=== PATIENT | male | born 1950 | race Caucasian/White ===

== ENCOUNTER 2018-02-10 17:28 | Inpatient (IN) | payer OTHER ==
[2018-02-10] MEDS ORDERED: ACETAMINOPHEN 500 MG TAB PO PRN (17:56)
--- NOTE | 2018-02-10 18:34 | P.HP ---
Certification for Inpatient Patient admitted to: Inpatient With expected LOS: >2 Midnights Patient will require the following post-hospital care: None Practitioner: I am a practitioner with admitting privileges, knowledge of patient current condition, hospital course, and medical plan of care. Services: Services provided to patient in accordance with Admission requirements found in Title 42 Section 412.3 of the Code of Federal Regulations Patient History Date of Service: 02/10/18 Primary Care Provider: Dr Amador and Dr Person Reason for admission: Olecron Brusitis History of Present Illness: 67-year-old male with significant past medical history of hypertension and diabetes who presented to the ED from Dr. person in the office for possible Olecron bursitis. Patient was admitted here about a month ago for septic elbow joint and was sent over to a long-term acute care facility for IV antibiotics and wound care. He patient released on Wednesday and started having some pain and swelling in the elbow area and thus decided to go to the orthopedic surgeon's office to get it checked out. At the surgeon's office there was concern for Osteomylitis and Septic Bursitis again. Thus was admitted to the hospital for further. Allergies sertraline [From Zoloft] Allergy (Verified 12/29/17 02:19) Hives/Rash Home Medications: Metoprolol Er 100 mg PO DAILY 02/27/13 Docusate [Colace Cap] 100 mg PO BID 01/09/15 Bupropion HCl [Wellbutrin*] 200 mg PO DAILY 12/29/17 Gabapentin [Neurontin*] 1 tab PO BID 12/29/17 Metformin HCl [Metformin HCl] 1 tab PO BID 12/29/17 Methocarbamol [Methocarbamol] 500 mg PO TID PRN 02/10/18 Oxycodone HCl/Acetaminophen [Oxycodone-Acetaminophen 10-325] 1 tab PO Q4H - Past Medical/Surgical History Has patient received pneumonia vaccine in the past: Yes Diabetic: Yes -: HTN -: Diabetes mellitus -: psoriasis -: cholecystectomy -: splectomy -: lumbar surgery -: left knee replacement -: 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 -: appendectomy -: hemorrhoid surgery -: colectomy - Family History Mother -: Heart disease Father -: Lung disease - Social History Smoking Status: Former smoker Alcohol use: No CD- Drugs: Yes Caffeine use: Yes Place of Residence: Home Review of Systems 10-point ROS is otherwise unremarkable General: As per HPI Physical Examination - Vital Signs Temperature: 98.2 F Blood Pressure: 112/70 Pulse: 77 Respirations: 16 Pulse Ox (%): 95 - Physical Exam General: Alert, In no apparent distress, Oriented x3 HEENT: Atraumatic Neck: Supple Respiratory: Clear to auscultation bilaterally, Normal air movement Cardiovascular: Regular rate/rhythm, Normal S1 S2 Gastrointestinal: Normal bowel sounds, No tenderness Musculoskeletal: Erythema, Tenderness, Warmth (Left Elbow with Brusitis ) Integumentary: No rashes Neurological: Normal speech, Normal tone, Abnormal gait, Abnormal strength Lymphatics: No axilla or inguinal lymphadenopathy Assessment and Plan - Problems (Diagnosis) (1) Olecranon bursitis of left elbow Current Visit: Yes Status: Acute Plan: H/O Septic Bursitis treated surgically and IV abx. Was in LTAC and now with Fluid collection and Bursitis again. -IV abx and wound care -Ortho consulted. Awaiting reccs -Culture pending -Will get PICC line (2) Diabetes mellitus Onset Date: 01/09/15 Current Visit: No Status: Chronic Qualifiers: Diabetes mellitus type: type 2 Diabetes mellitus fdc insulin use: without long term care pharmacist use Diabetes mellitus complication status: without complication Qualified Code(s): E11.9 - Type 2 diabetes mellitus without complications (3) Hypertension Onset Date: 12/29/17 Current Visit: No Status: Chronic Qualifiers: Hypertension type: essential hypertension Qualified Code(s): I10 - Essential (primary) hypertension (4) Obesity Current Visit: No Status: Chronic Qualifiers: Obesity type: due to excess calories Obesity classification: adult class 1 (BMI 30 - 34.9) Serious obesity comorbidity presence: with serious comorbidity Body mass index: BMI 33.0-33.9 Qualified Code(s): E66.09 - Other obesity due to excess calories; Z68.33 - Body mass index (BMI) 33.0-33.9, adult; Z68.33 - Body mass index (BMI) 33.0-33.9, adult Discharge Plan: LTAC Plan to discharge in: 48 Hours - Advance Directives Does patient have a Living Will: Yes Does patient have a Durable POA for Healthcare: Yes - Code Status/Comfort Care Code Status Assessed: Yes Critical Care: No
[2018-02-10 19:48] LABS: Urine Appearance CLEAR; Urine Bilirubin NEGATIVE (NEG); Urine Blood NEGATIVE (NEG); Urine Color YELLOW; Urine Glucose 2+ (NEG); Urine Protein NEGATIVE (NEG); Urine Specific Gravity 1.015 (1.005-1.030); Urine Urobilinogen 0.2 mg/dL (0.2-1.0)
[2018-02-10 19:53] LABS: Urine Microscopic Reflex NO UMIC
[2018-02-10] MEDS ORDERED: VANCOMYCIN 1.25 GM in NA CHLORIDE 0.9% 250 ML IVPB SCH (21:00)
[2018-02-10] MEDS: INSULIN -REGULAR HUMAN 50 UNIT/0.5 ML ML SQ SCH (21:27)
[2018-02-10] MEDS: ONDANSETRON 4 MG (ODT) TAB PO PRN (21:27)
[2018-02-10] MEDS: PIPER/TAZO/NS 3.375gm 3.375 GM/100 ML BAG IVPB SCH (21:28)
[2018-02-10] MEDS: GABAPENTIN 300 MG CAP PO SCH (21:28)
[2018-02-10] MEDS: OXYCODONE HCL 5 MG TAB PO PRN (21:28)
[2018-02-10] MEDS: DOCUSATE NA 100 MG CAP PO SCH (21:28)
[2018-02-10 22:23] VITALS: BMI 32.0
[2018-02-11 05:22] LABS: Absolute Monocytes 2.6 K/uL (0.1-1.3); Absolute Neutrophil 6.1 K/uL (1.8-8.0); Basophils % 0.6 % (0-1.3); Eosinophils % 6.1 % (0-4.4); Hematocrit 36.2 % (39.6-49.0); Lymphocytes % 41.7 % (15.3-44.8); MCV 90.2 fL (80-100); MPV 9.4 fL (7.6-11.3); Monocytes % 15.3 % (3.3-12.3); RBC Red Blood Cell Count 4.01 M/uL (4.33-5.43)
[2018-02-11 05:30] LABS: Protime INR 1.06
[2018-02-11 05:56] LABS: Albumin 2.7 g/dL (3.2-5.5); Bilirubin Total 0.7 mg/dL (0.3-1.2); Phosphorus 3.7 mg/dL (2.5-4.3); Potassium 3.8 mEq/L (3.6-5.0)
[2018-02-11 05:58] LABS: Magnesium 1.4 mg/dL (1.8-2.5)
[2018-02-11] MEDS ORDERED: Magnesium Sulfate 2gm IVPB 2 G/50 ML BAG IV ONE (06:02)
[2018-02-11 07:06] LABS: Platelet Estimate ADEQ
[2018-02-11 07:07] LABS: Anisocytosis SLIGHT; Blood Morphology Comment NOTED (NOT SEEN); Macrocytosis SLIGHT
[2018-02-11] MEDS: INSULIN -REGULAR HUMAN 50 UNIT/0.5 ML ML SQ SCH ×4 (07:30→20:22)
[2018-02-11] MEDS ORDERED: PNEUMOCOCCAL VACCINE 0.5 ML IMVAC ONE (08:00)
[2018-02-11] MEDS: buPROPion HCl 100 MG TAB PO SCH (09:00)
[2018-02-11] MEDS: DOCUSATE NA 100 MG CAP PO SCH ×2 (09:00→20:13)
[2018-02-11] MEDS: METOPROLOL XL 100 MG TAB PO SCH (09:00)
[2018-02-11] MEDS: GABAPENTIN 300 MG CAP PO SCH ×2 (09:00→20:15)
[2018-02-11] MEDS ORDERED: METOPROLOL 100 MG PO SCH (09:00)
[2018-02-11] MEDS: PIPER/TAZO/NS 3.375gm 3.375 GM/100 ML BAG IVPB SCH ×2 (09:38→20:15)
[2018-02-11] MEDS: OXYCODONE HCL 5 MG TAB PO PRN (10:51)
[2018-02-11] MEDS ORDERED: NA CHLORIDE 0.9% 1,000 ML ONE (12:27)
--- NOTE | 2018-02-11 13:36 | P.PN ---
Subjective Date of Service: 02/11/18 Primary Care Provider: Dr Amador and Dr Person Chief Complaint: Olecron Brusitis Patient seen and examined at bedside with RN. Chart reviewed. Case discussed with orthopedic surgeon. Patient is currently awaiting were procedure. Review of Systems 10-point ROS is otherwise unremarkable Physical Examination - Vital Signs Temperature: 97.4 F Blood Pressure: 145/94 Pulse: 63 Respirations: 16 Pulse Ox (%): 97 - Physical Exam General: Alert, In no apparent distress, Oriented x3 HEENT: Atraumatic, PERRLA, EOMI Neck: Supple, JVD not distended Respiratory: Clear to auscultation bilaterally, Normal air movement Cardiovascular: Regular rate/rhythm, Normal S1 S2 Gastrointestinal: Normal bowel sounds, No tenderness Musculoskeletal: Other (Swelling and purulent discharge noted. ) Integumentary: No rashes Neurological: Normal speech, Normal tone, Normal affect Lymphatics: No axilla or inguinal lymphadenopathy - Studies Laboratory Data (last 24 hrs) 02/11/18 04:53: Sodium 139, Potassium 3.8, BUN 41 H, Creatinine 1.75 H, Glucose 150 H, Phosphorus 3.7, Magnesium 1.4 L* D, Total Bilirubin 0.7, AST 18, ALT 12, Alkaline Phosphatase 123 H 02/11/18 04:53: PT 12.5, INR 1.06, APTT 29.4 02/11/18 04:53: WBC 16.8 H, Hgb 11.6 L, Hct 36.2 L, Plt Count 332 Microbiology Data (last 24 hrs): 02/11/18 09:55 Wound - Left Elbow Gram Stain - Final 02/10/18 18:35 Blood Anaerobic Blood Culture - Final Medications List Reviewed: Yes Assessment & Plan - Problems (Diagnosis) (1) Olecranon bursitis of left elbow Onset Date: 02/11/18 Current Visit: Yes Status: Acute Plan: H/O Septic Bursitis treated surgically and IV abx. Was in LTAC and now with Fluid collection and Bursitis again. -IV abx and wound care -Ortho consulted. Awaiting reccs -Culture pending -Will get PICC line (2) Diabetes mellitus Onset Date: 01/09/15 Current Visit: No Status: Chronic Qualifiers: Diabetes mellitus type: type 2 Diabetes mellitus superintendent terminal insulin use: without superintendent terminal use Diabetes mellitus complication status: without complication Qualified Code(s): E11.9 - Type 2 diabetes mellitus without complications (3) Hypertension Onset Date: 12/29/17 Current Visit: No Status: Chronic Qualifiers: Hypertension type: essential hypertension Qualified Code(s): I10 - Essential (primary) hypertension (4) Obesity Onset Date: 02/11/18 Current Visit: No Status: Chronic Qualifiers: Obesity type: due to excess calories Obesity classification: adult class 1 (BMI 30 - 34.9) Serious obesity comorbidity presence: with serious comorbidity Body mass index: BMI 33.0-33.9 Qualified Code(s): E66.09 - Other obesity due to excess calories; Z68.33 - Body mass index (BMI) 33.0-33.9, adult; Z68.33 - Body mass index (BMI) 33.0-33.9, adult
[2018-02-11] MEDS ORDERED: PROPOFOL 200 MG/20 ML VIAL IV ONE (14:01)
[2018-02-11] MEDS ORDERED: LIDOCAINE 2% MPF 5 ML VIAL ONE (14:01)
[2018-02-11] MEDS ORDERED: MIDAZOLAM HCL 2 MG/2 ML INJ ONE (14:01)
[2018-02-11] MEDS ORDERED: ONDANSETRON 4 MG/2 ML VIAL ONE (14:02)
[2018-02-11] MEDS ORDERED: FENTANYL CITR 100 MCG/2 ML ONE (14:05)
[2018-02-11] MEDS ORDERED: SUCCINYLCHOLINE 20 MG/ML (10 ML) IV ONE (14:11)
[2018-02-11] MEDS ORDERED: ROCURONIUM 50 MG/5 ML VIAL IV ONE (14:21)
[2018-02-11] MEDS ORDERED: EPHEDRINE SULF 50 MG/5 ML SYR ONE (14:29)
[2018-02-11] MEDS ORDERED: GLYCOPYRROLATE 0.2 MG/ML SYR ONE (14:31)
[2018-02-11] MEDS ORDERED: Phenylephrine HCl 10 MG/ML 1 ML VIAL ONE (14:31)
--- NOTE | 2018-02-11 15:03 | P.BOP ---
Preoperative diagnosis: left elbow draining wound Postoperative diagnosis: same Primary procedure: left elbow irrigation and sharp debridement, packed open Estimated blood loss: 20ccs Findings: some necrotic tissue Anesthesia: General Complications: None Transferred to: Recovery Room Condition: Good
[2018-02-11] MEDS: Oxycodone HCl/Acetaminophen 1 TAB TAB PO PRN ×2 (17:10→21:26)
--- NOTE | 2018-02-11 17:10 | CON ---
Date of Consultation: 02/11/2018 I have definitely seen Mr. Leon in the past for approximately a month ago. He was admitted to the hospital for sepsis and with infected left upper extremity. This did involve the bursa. Also other extensive involvement, however, did not involve the elbow joint proper. He was treated with IV anti biotics and underwent serial irrigation and debridement until it appeared that all of the infected no nviable tissue was removed. He was placed in a splint and discharged to [facility] for IV antibiotics. He was released on Wednesday. After being released, he was placed on oral antibiotics. He saw me in my o ffice saying he was not feeling well. He did have continued open wound in the region of his elbow wi th some bloody as well as what appeared to be purulent drainage and did not appear to be much surroun ding cellulitis. He does have a CT scan which demonstrates probable persistence of infection. There fore, he is admitted under the care of hospitalist and placed on IV antibiotics. We will plan to carmina e him to the operating room today and also has planned to get a PICC line. Most of his future care w ill be dependent on his results with this treatment. All risks, benefits, and alternatives of surger y have been discussed with him. States, he understands things at present. We will most likely proce ed later on today. YOSEPH Voice ID: [id number] Report ID: [id number]
[2018-02-11] MEDS ORDERED: MAGNESIUM SULFATE 1 gm IVPB 1 GM/100 ML BAG IV ONE (18:00)
--- NOTE | 2018-02-11 19:53 | RAD REPORT ---
EXAM DESCRIPTION: MRI - Elbow Left Wo Cont - 02/11/2018 7:32 pm CLINICAL HISTORY: Left elbow pain and swelling. COMPARISON: None TECHNIQUE: Axial, sagittal, and coronal magnetic images of the left elbow were obtained. FINDINGS: A soft tissue ulceration involves the dorsal aspect of the left elbow. Abnormal signal involves the ulnar olecranon measuring 25 millimeters compatible with osteomyelitis. Diffuse edema is present within the subcutaneous tissues. A soft tissue abscess is not seen IMPRESSION: Osteomyelitis involving the ulnar olecranon
[2018-02-11] MEDS: VANCOMYCIN 1.5 GM in NA CHLORIDE 0.9% 500 ML IVPB SCH (20:14)
[2018-02-11] MEDS ORDERED: VANCOMYCIN 1.25 GM in NA CHLORIDE 0.9% 250 ML IVPB SCH (21:00)
[2018-02-11] MEDS: ONDANSETRON 4 MG (ODT) TAB PO PRN (21:27)
--- NOTE | 2018-02-12 02:02 | OP ---
Date of Procedure: 02/11/2018 Surgeon: Cj Person MD Postoperative Diagnosis: Left elbow draining wound, possibility of infection, abscess, or osteomyeli tis. Postoperative Diagnosis: Left elbow draining wound, possibility of infection, abscess, or osteomyeli tis. Procedure: Left elbow irrigation and sharp debridement, left packed open. Estimated Blood Loss: 20 cc. Complications: There were no complications. Specimen: There is a pathology specimen sent, which appears to be consistent with some necrotic tric eps tendon. Otherwise, cultures were also sent. Indications For Operation: Mr. Leon has had an unfortunate problem with his left elbow. He was i nitially admitted with sepsis approximately a month ago, and was taken nearly immediately to the oper ating room where he had a significant amount of purulent material throughout his left upper extremity . He also had a septic olecranon bursa. He went for multiple irrigations and debridement and was ev entually closed once it felt that this is clean over drain. He was then transferred to an [facility] with IV antibiotics. 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 Ther efore, he was treated empirically for this. He was discharged on Wednesday and noted that he had contin ued open wound and dressing of his elbow. I asked if he would proceed to local wound care in the [facility] since he had been discharged from the LTAC, but he came to see me in my office. On visualization, it appeared that he did have some desiccated triceps tendon that was easily seen and perhaps some pur ulence which was expressed. He was already on oral antibiotics. Cultures were not taken at that [facility]. However, he was admitted in the care of the hospitalist and started on IV antibiotics. All risks , benefits, and alternatives to irrigation and debridement of his left elbow were discussed with the patient. He states he understands things as presented and wishes to proceed. Description Of Procedure: The patient taken to the operating room and placed in the supine position. General anesthesia obtained by staff. Following this, he was then rotated. He was then rolled to his right side with all his bony prominences being checked. An axillary roll was placed. The beanba g was then deflated. His arm was properly positioned. His left upper extremity was then prepped and draped in the usual sterile fashion for his open wound. After this, a sterile tourniquet was placed superior left arm. His open wound was incised. Any necrotic appearing material was debrided. Ther e did appear to be some mild necrosis of the skin. Also, the triceps tendon did appear to be desicca ruthie with some necrotic area. This was debrided. The tip of the olecranon is easily seen. However, there does not appear to be any exposed cancellous bone. There was also does not appear to be any pu rulence coming from the bone itself. After this debridement was done, compression of the forearm and arm did not yield any purulent material. A small stab wound was made in the triceps fascia just pro ximal to the distal end of the humerus to allow for placement of a finger against the posterior aspec t of the humerus where there may be some purulent material, however, none was expressed here. After this cultures were sent. He was then copiously irrigated with multiple liters of sterile saline. He was again examined and appeared to be very clean. I think the primary pathology which was seen is s ome necrotic tissue near the olecranon consistent with triceps tendon. However, the triceps tendon i tself is functioning as he does have elbow extension on examination. At this time it is left packed open with a little bit of wet Kerlix, ABDs, as well as highly padded and then placed in a posterior s plint. The patient was then awakened, and taken to recovery room in good condition. There were no c omplications. SE/MODL Voice ID: [id number] Report ID: [id number]
[2018-02-12] MEDS: Oxycodone HCl/Acetaminophen 1 TAB TAB PO PRN ×3 (02:23→23:42)
[2018-02-12 05:14] LABS: Absolute Lymphocytes (CBC) 4.1 K/uL (0.7-4.9); Absolute Neutrophil 6.5 K/uL (1.8-8.0); Basophils % 0.5 % (0-1.3); Eosinophils % 14.2 % (0-4.4); Hematocrit 38.4 % (39.6-49.0); Lymphocytes % 27.7 % (15.3-44.8); MCH 29.2 pg (27.0-35.0); MCV 91.3 fL (80-100); MPV 9.7 fL (7.6-11.3); Monocytes % 13.8 % (3.3-12.3)
[2018-02-12 05:23] LABS: Albumin 2.9 g/dL (3.2-5.5); Bilirubin Total 0.7 mg/dL (0.3-1.2); Magnesium 1.7 mg/dL (1.8-2.5); Phosphorus 3.9 mg/dL (2.5-4.3); Potassium 4.1 mEq/L (3.6-5.0); Protein, Total 6.7 g/dL (6.0-8.3)
[2018-02-12 05:32] LABS: Protime INR 1.02
[2018-02-12] MEDS ORDERED: MAGNESIUM SULFATE 1 gm IVPB 1 GM/100 ML BAG IV ONE (06:21)
[2018-02-12] MEDS: INSULIN -REGULAR HUMAN 50 UNIT/0.5 ML ML SQ SCH ×4 (07:30→20:04)
[2018-02-12] MEDS: OXYCODONE HCL 5 MG TAB PO PRN ×2 (07:33→20:03)
--- NOTE | 2018-02-12 07:57 | RAD REPORT ---
EXAM DESCRIPTION: RAD - Chest Single View - 02/12/2018 1:01 am CLINICAL HISTORY: Device placement PICC line placement COMPARISON: December 2017 FINDINGS: A PICC line has been inserted with its tip in the superior vena cava. The haziness involving the left lung base probably mostly if not all represents epicardial fat. The remaining lungs are clear. The heart is normal size IMPRESSION: PICC line with its tip in the superior vena cava
[2018-02-12] MEDS: PIPER/TAZO/NS 3.375gm 3.375 GM/100 ML BAG IVPB SCH ×2 (09:54→20:05)
[2018-02-12] MEDS: DOCUSATE NA 100 MG CAP PO SCH ×2 (09:55→20:03)
[2018-02-12] MEDS: METOPROLOL XL 100 MG TAB PO SCH (09:55)
[2018-02-12] MEDS: buPROPion HCl 100 MG TAB PO SCH (09:55)
[2018-02-12] MEDS: GABAPENTIN 300 MG CAP PO SCH ×2 (09:56→20:03)
--- NOTE | 2018-02-12 10:31 | P.PN ---
Subjective Date of Service: 02/12/18 Primary Care Provider: Dr Amadro and Dr Person Chief Complaint: Olecron Brusitis Patient seen and examined at bedside with RN. Chart reviewed. Case discussed with orthopedic surgeon. Patient is currently status post OR procedure. MRI is consistent with osteomyelitis. Review of Systems 10-point ROS is otherwise unremarkable Physical Examination - Vital Signs Temperature: 99.3 F Blood Pressure: 145/74 Pulse: 76 Respirations: 16 Pulse Ox (%): 98 - Physical Exam General: Alert, In no apparent distress, Oriented x3 HEENT: Atraumatic, PERRLA, EOMI Neck: Supple, JVD not distended Respiratory: Clear to auscultation bilaterally, Normal air movement Cardiovascular: Regular rate/rhythm, Normal S1 S2 Gastrointestinal: Normal bowel sounds, No tenderness Musculoskeletal: No tenderness, Other (Right AKA) Integumentary: No rashes Neurological: Normal speech, Normal tone, Normal affect Lymphatics: No axilla or inguinal lymphadenopathy - Studies Laboratory Data (last 24 hrs) 02/12/18 04:23: Sodium 136, Potassium 4.1, BUN 32 H, Creatinine 1.31 H, Glucose 165 H, Phosphorus 3.9, Magnesium 1.7 L, Total Bilirubin 0.7, AST 23, ALT 13, Alkaline Phosphatase 114 02/12/18 04:23: PT 12.0, INR 1.02, APTT 27.9 02/12/18 04:23: WBC 14.8 H, Hgb 12.3 L, Hct 38.4 L, Plt Count 337 02/11/18 16:25: Magnesium 1.7 L 02/11/18 04:53: WBC 16.8 H Microbiology Data (last 24 hrs): 02/10/18 19:25 Clean Catch Urine [place] Count - Final <10,000 CFU/ML. 02/10/18 19:25 Clean Catch Urine - Final 02/10/18 18:35 Blood Anaerobic Blood Culture - Final 02/11/18 09:55 Wound - Left Elbow Gram Stain - Final Medications List Reviewed: Yes Assessment & Plan - Problems (Diagnosis) (1) Olecranon bursitis of left elbow Onset Date: 02/11/18 Current Visit: Yes Status: Acute Plan: H/O Septic Bursitis treated surgically and IV abx. Was in LTAC and now with Fluid collection and Bursitis again. -S/P Surgical Debriement POD # 1 -IV Vanc and wound care -Culture pending -PICC line placed -Will either need HH with Wound care or LTAC placement. (2) Diabetes mellitus Onset Date: 01/09/15 Current Visit: No Status: Chronic Qualifiers: Diabetes mellitus type: type 2 Diabetes mellitus communications clerk insulin use: without communications clerk use Diabetes mellitus complication status: without complication Qualified Code(s): E11.9 - Type 2 diabetes mellitus without complications (3) Hypertension Onset Date: 12/29/17 Current Visit: No Status: Chronic Qualifiers: Hypertension type: essential hypertension Qualified Code(s): I10 - Essential (primary) hypertension (4) Obesity Onset Date: 02/11/18 Current Visit: No Status: Chronic Qualifiers: Obesity type: due to excess calories Obesity classification: adult class 1 (BMI 30 - 34.9) Serious obesity comorbidity presence: with serious comorbidity Body mass index: BMI 33.0-33.9 Qualified Code(s): E66.09 - Other obesity due to excess calories; Z68.33 - Body mass index (BMI) 33.0-33.9, adult; Z68.33 - Body mass index (BMI) 33.0-33.9, adult Discharge Plan: Other Plan to discharge in: 48 Hours - Code Status/Comfort Care Code Status Assessed: Yes Critical Care: No
--- NOTE | 2018-02-12 13:09 | PN ---
Date of Progress Note: 02/12/2018 The patient is seen today. He is neurovascularly intact. Review of laboratories reveals that his wh ite count this morning is 14.8, which is down. He did have an MRI last night, which does show increa sed uptake in the region of olecranon; however, there is no abscess formation. This does appear to b e consistent with osteomyelitis and could be reactive as he has had this long open area, but I think treating as osteomyelitis would be considered best at this point. I do not believe that this is a re movable bone and so surgical excision of this area is not advocated; however, long-term IV antibiotic s has previously been discussed with the patient after this has been cleared with further debridement and at this time plan is to place the patient n.p.o. after midnight and proceed with operative inter vention tomorrow for a second-look irrigation and debridement and probable closure. /ALMA Voice ID: [id number] Report ID: [id number]
[2018-02-12] MEDS ORDERED: MELATONIN 5 MG TABLET PO PRN (13:48)
[2018-02-12] MEDS: PANTOPRAZOLE 40MG TABLET PO SCH (15:33)
[2018-02-12] MEDS: ONDANSETRON 4 MG (ODT) TAB PO PRN ×2 (17:22→23:39)
[2018-02-12] MEDS: VANCOMYCIN 1.5 GM in NA CHLORIDE 0.9% 500 ML IVPB SCH (21:14)
[2018-02-13] MEDS: Oxycodone HCl/Acetaminophen 1 TAB TAB PO PRN (03:55)
[2018-02-13] MEDS: PANTOPRAZOLE 40MG TABLET PO SCH (05:21)
[2018-02-13 05:59] LABS: Absolute Lymphocytes (CBC) 4.4 K/uL (0.7-4.9); Basophils % 1.1 % (0-1.3); Eosinophils % 10.2 % (0-4.4); Hematocrit 38.5 % (39.6-49.0); Lymphocytes % 25.5 % (15.3-44.8); MCH 29.4 pg (27.0-35.0); MCV 91.1 fL (80-100); MPV 9.4 fL (7.6-11.3); Monocytes % 11.7 % (3.3-12.3); RBC Red Blood Cell Count 4.22 M/uL (4.33-5.43)
[2018-02-13 06:12] LABS: Albumin 2.8 g/dL (3.2-5.5); Bilirubin Total 1.1 mg/dL (0.3-1.2); Magnesium 1.5 mg/dL (1.8-2.5); Phosphorus 3.7 mg/dL (2.5-4.3); Potassium 4.1 mEq/L (3.6-5.0); Protein, Total 6.4 g/dL (6.0-8.3); Protime INR 1.01
[2018-02-13] MEDS: ONDANSETRON 4 MG (ODT) TAB PO PRN ×2 (06:47→14:12)
[2018-02-13] MEDS: INSULIN -REGULAR HUMAN 50 UNIT/0.5 ML ML SQ SCH ×4 (07:30→21:36)
[2018-02-13] MEDS ORDERED: NA CHLORIDE 0.9% 1,000 ML ONE (08:06)
[2018-02-13] MEDS ORDERED: PROPOFOL 200 MG/20 ML VIAL IV ONE (08:09)
[2018-02-13] MEDS ORDERED: LIDOCAINE 2% MPF 5 ML VIAL ONE (08:09)
[2018-02-13] MEDS ORDERED: FENTANYL CITR 100 MCG/2 ML ONE (08:09)
[2018-02-13] MEDS ORDERED: ONDANSETRON 4 MG/2 ML VIAL ONE (08:30)
[2018-02-13] MEDS ORDERED: DEXAMETHASONE 10 MG/ML VIAL ONE (08:49)
[2018-02-13] MEDS: METOPROLOL XL 100 MG TAB PO SCH ×2 (09:00→12:52)
[2018-02-13] MEDS: PIPER/TAZO/NS 3.375gm 3.375 GM/100 ML BAG IVPB SCH ×2 (09:00→21:35)
[2018-02-13] MEDS: buPROPion HCl 100 MG TAB PO SCH ×2 (09:00→12:53)
[2018-02-13] MEDS: DOCUSATE NA 100 MG CAP PO SCH ×3 (09:00→21:37)
[2018-02-13] MEDS: GABAPENTIN 300 MG CAP PO SCH ×3 (09:00→21:37)
[2018-02-13] MEDS: MEPERIDINE HCL 25 MG/0.5 ML ONE ×2 (09:24→09:30)
[2018-02-13] MEDS ORDERED: GLUCAGON 1 MG/VIAL IM PRN (09:27)
[2018-02-13] MEDS ORDERED: D50W 25 GM/50 ML SYRINGE IV PRN (09:27)
--- NOTE | 2018-02-13 11:16 | OP ---
Date of Procedure: 02/13/2018 Surgeon: Cj Person MD Preoperative Diagnosis: Left elbow status post irrigation and debridement. Postoperative Diagnosis: Left elbow status post irrigation and debridement. Procedure: Left elbow second-look irrigation and debridement with closure. Estimated Blood Loss: 10 cc. Complications: There were no complications. Specimens: No pathology specimens sent. Indications For Operation: Mr. Leon is a patient, who came to see me and has had a long history o f problems with his left elbow. He recently had an MRI, which demonstrates possible osteomyelitis of his olecranon, but a long history is further detailed in his last procedure as well as his medical r ecord. The indications for operation today are irrigation and second-look debridement, possible clos ure. All risks, benefits, and alternatives have been discussed. The patient states he understands e verything as presented and wished to proceed. Description Of Procedure: The patient was taken to the operating room and placed in the supine posit ion. General anesthesia was obtained by staff. Following this, he was then rolled to his right side down with axillary roll. His left upper extremity was then prepped and draped in the usual sterile fashion for the procedure. Following this, the dressing was removed. It was found to be clear of an y purulent material. The wound bed itself appears to be absolutely clear and clean. The olecranon i s visible, but there is no sign of significant fragmentation. There does not appear to be any purule nt drainage from the olecranon. The triceps tendon is somewhat attenuated from the disease process; however, it also appears to be intact. The left upper extremity was prepped and draped in the usual sterile fashion. The wound was then copiously irrigated with 2 L sterile saline. A curette was used to gently move away some exudate, and the wound was explored. There was found to be no purulence or sign of necrotic tissue. The edges of the skin, particularly over the region of the olecranon were slightly debrided back to avoid any problems with epithelialization. The wound was then closed using 2-0 nylon sutures. The patient was placed in Aquacel dressing, extremely well-padded sterile dressi ng, splint, and taken to recovery room in good condition. There were no complications. /ALMA Voice ID: [id number] Report ID: [id number]
[2018-02-13] MEDS ORDERED: Magnesium Sulfate 2gm IVPB 2 G/50 ML BAG IV ONE (13:00)
--- NOTE | 2018-02-13 14:06 | P.PN ---
Subjective Date of Service: 02/13/18 Primary Care Provider: Dr Amador and Dr Person Chief Complaint: Olecron Brusitis Patient seen and examined at bedside with RN. Chart reviewed. Case discussed with orthopedic surgeon. Patient is currently status post OR procedure. MRI is consistent with osteomyelitis. Doing well overall. Culture pending. Review of Systems General: As per HPI Physical Examination - Vital Signs Temperature: 99.0 F Blood Pressure: 118/73 Pulse: 70 Respirations: 16 Pulse Ox (%): 93 - Physical Exam General: Alert, In no apparent distress HEENT: Atraumatic, PERRLA, EOMI Neck: Supple, JVD not distended Respiratory: Clear to auscultation bilaterally, Normal air movement Cardiovascular: Regular rate/rhythm, Normal S1 S2 Gastrointestinal: Normal bowel sounds, No tenderness Musculoskeletal: Other (right AKA) Integumentary: No rashes Neurological: Normal speech, Normal tone, Normal affect Lymphatics: No axilla or inguinal lymphadenopathy - Studies Laboratory Data (last 24 hrs) 02/13/18 05:40: Sodium 140, Potassium 4.1, BUN 19, Creatinine 1.15, Glucose 176 H, Phosphorus 3.7, Magnesium 1.5 L, Total Bilirubin 1.1, AST 19, ALT 14, Alkaline Phosphatase 92 02/13/18 05:40: PT 11.9, INR 1.01, APTT 28.4 02/13/18 05:40: WBC 17.5 H D, Hgb 12.4 L, Hct 38.5 L, Plt Count 334 Microbiology Data (last 24 hrs): 02/11/18 09:55 Wound - Left Elbow Gram Stain - Final 02/11/18 09:55 Wound - Left Elbow Culture & Sensitivity - Final 02/11/18 14:30 Body Fluid - Other Gram Stain - Final 02/11/18 14:30 Wound - Other Gram Stain - Final 02/10/18 19:25 Clean Catch Urine [place] Count - Final <10,000 CFU/ML. 02/10/18 19:25 Clean Catch Urine - Final Medications List Reviewed: Yes Assessment & Plan - Problems (Diagnosis) (1) Olecranon bursitis of left elbow Onset Date: 02/11/18 Current Visit: Yes Status: Acute Plan: H/O Septic Bursitis treated surgically and IV abx. Was in LTAC and now with Fluid collection and Bursitis again. -S/P Surgical Debriement POD # 2 -IV Vanc and wound care -Culture pending -PICC line placed -Will either need HH with Wound care or LTAC placement. (2) Diabetes mellitus Onset Date: 01/09/15 Current Visit: No Status: Chronic Qualifiers: Diabetes mellitus type: type 2 Diabetes mellitus intermediate frame tender insulin use: without intermediate frame tender use Diabetes mellitus complication status: without complication Qualified Code(s): E11.9 - Type 2 diabetes mellitus without complications (3) Hypertension Onset Date: 12/29/17 Current Visit: No Status: Chronic Qualifiers: Hypertension type: essential hypertension Qualified Code(s): I10 - Essential (primary) hypertension (4) Obesity Onset Date: 02/11/18 Current Visit: No Status: Chronic Qualifiers: Obesity type: due to excess calories Obesity classification: adult class 1 (BMI 30 - 34.9) Serious obesity comorbidity presence: with serious comorbidity Body mass index: BMI 33.0-33.9 Qualified Code(s): E66.09 - Other obesity due to excess calories; Z68.33 - Body mass index (BMI) 33.0-33.9, adult; Z68.33 - Body mass index (BMI) 33.0-33.9, adult
[2018-02-13] MEDS: OXYCODONE HCL 5 MG TAB PO PRN ×2 (14:12→22:26)
[2018-02-13] MEDS: VANCOMYCIN 1.5 GM in NA CHLORIDE 0.9% 500 ML IVPB SCH (21:35)
[2018-02-13] MEDS: ONDANSETRON 4 MG/2 ML VIAL IV PRN (22:26)
[2018-02-14] MEDS ORDERED: MAGNESIUM SULFATE 1 gm IVPB 1 GM/100 ML BAG IV ONE ×3 (00:54→09:00)
[2018-02-14] MEDS ORDERED: NA CHLORIDE 0.9% 250 ML ONE ×2 (01:33→06:53)
[2018-02-14] MEDS: PROMETHAZINE 25 MG/ML VIAL IV PRN ×4 (02:09→20:24)
[2018-02-14] MEDS: ONDANSETRON 4 MG/2 ML VIAL IV PRN (04:47)
[2018-02-14 05:31] LABS: Magnesium 1.8 mg/dL (1.8-2.5); Potassium 3.8 mEq/L (3.6-5.0)
[2018-02-14] MEDS ORDERED: ONDANSETRON 4 MG/2 ML VIAL IV PRN (05:40)
[2018-02-14] MEDS ORDERED: KCL 20 MEQ/100 mL IVPB 20 MEQ/100 ML BAG IV SCH (07:00)
[2018-02-14] MEDS: INSULIN -REGULAR HUMAN 50 UNIT/0.5 ML ML SQ SCH ×4 (07:30→20:09)
[2018-02-14] MEDS: PIPER/TAZO/NS 3.375gm 3.375 GM/100 ML BAG IVPB SCH ×2 (08:22→20:08)
[2018-02-14] MEDS: GABAPENTIN 300 MG CAP PO SCH ×2 (08:22→20:09)
[2018-02-14] MEDS: DOCUSATE NA 100 MG CAP PO SCH ×2 (08:22→20:08)
[2018-02-14] MEDS: buPROPion HCl 100 MG TAB PO SCH (08:23)
[2018-02-14] MEDS: PANTOPRAZOLE 40MG TABLET PO SCH (08:23)
[2018-02-14] MEDS: METOPROLOL XL 100 MG TAB PO SCH (08:23)
[2018-02-14] MEDS: NA CHLORIDE 0.9% 1,000 ML IV SCH (10:09)
[2018-02-14] MEDS ORDERED: PROMETHAZINE 25 MG/ML VIAL IV ONE (10:17)
[2018-02-14] MEDS: FLUCONAZOLE 200mg IVPB 200 MG/100 ML BAG IV SCH (17:19)
[2018-02-14] MEDS: Oxycodone HCl/Acetaminophen 1 TAB TAB PO PRN (17:23)
--- NOTE | 2018-02-14 20:22 | PN ---
Date of Progress Note: 02/14/2018 The patient seen, examined, chart reviewed, and case discussed with RN. Subjective: The patient states that he had multiple episodes of nausea and vomiting asking for highe r dose of Phenergan and states the Zofran is not working for him. The patient has had a repeat KUB d one. Review of Systems: Negative except as above. Medications: Reviewed. Physical Examination: Vital Signs: Temperature 98.4, heart rate 72, blood pressure 156/73, respirations 18, O2 97% on 2 L via nasal cannula. General: Awake, alert, oriented x3. Some mild distress. Obese, elderly male, somewhat ill-appearin g. CV: S1, S2. Regular rate and rhythm. Peripheral pulses present. Respiratory: Clear to auscultation bilaterally. No wheezing. Abdomen: Abdomen is soft, nontender, nondistended. Positive bowel sounds. Extremities: No clubbing, cyanosis. Some trace edema. Musculoskeletal: No clubbing, no swelling. The left upper extremity is bandaged. The patient has t he right BKA. Neurologic: Nonfocal. Laboratory Data: Sodium 139, potassium 3.8, chloride 102, CO2 30, BUN 20, creatinine 1.17, glucose 1 81, calcium 9.6, magnesium 1.8. WBC pending. Blood cultures no growth to date. Urine cultures nega tive. Wound culture shows 1+ mixed skin monae, 1+ yeast. Body fluid culture shows no anaerobes. Assessment And Plan: 1.Olecranon bursitis, left elbow, on IV antibiotics, status post I and D, repeat I and D x2. Orthope dics is on the case. Cultures showing 1+ yeast. ID on the case. 2.Diabetes mellitus type 2 with long-term use of insulin without complications. 3.Essential hypertension. 4.Obesity, BMI 32. 5.Status post right above-knee amputation. Plan: We will continue IV antibiotics. The patient will likely need LTAC placement or home health w ith wound care. Follow up with ID to adjust. We will add antifungal as yeast has been found in woun d culture. SA/MODL Voice ID: [id number] Report ID: [id number]
[2018-02-14] MEDS: VANCOMYCIN 1.5 GM in NA CHLORIDE 0.9% 500 ML IVPB SCH (21:53)
[2018-02-15] MEDS: PROMETHAZINE 25 MG/ML VIAL IV PRN ×3 (03:39→22:17)
[2018-02-15] MEDS: NA CHLORIDE 0.9% 1,000 ML IV SCH (05:17)
[2018-02-15 06:02] LABS: Absolute Lymphocytes (CBC) 4.7 K/uL (0.7-4.9); Absolute Neutrophil 7.5 K/uL (1.8-8.0); Basophils % 0.6 % (0-1.3); Eosinophils % 6.7 % (0-4.4); Hematocrit 35.9 % (39.6-49.0); Lymphocytes % 30.4 % (15.3-44.8); MCV 89.5 fL (80-100); MPV 9.4 fL (7.6-11.3); Monocytes % 13.2 % (3.3-12.3); RBC Red Blood Cell Count 4.01 M/uL (4.33-5.43)
[2018-02-15 06:10] LABS: Magnesium 1.6 mg/dL (1.8-2.5); Potassium 3.4 mEq/L (3.6-5.0)
[2018-02-15] MEDS: INSULIN -REGULAR HUMAN 50 UNIT/0.5 ML ML SQ SCH ×4 (07:30→21:00)
[2018-02-15] MEDS ORDERED: MAGNESIUM SULFATE 1 gm IVPB 1 GM/100 ML BAG IV ONE (09:00)
[2018-02-15] MEDS ORDERED: POTASSIUM CL SA 10 MEQ TAB PO ONE (09:00)
[2018-02-15] MEDS: METOPROLOL XL 100 MG TAB PO SCH (09:13)
[2018-02-15] MEDS: DOCUSATE NA 100 MG CAP PO SCH ×2 (09:14→20:02)
[2018-02-15] MEDS: Oxycodone HCl/Acetaminophen 1 TAB TAB PO PRN (09:14)
[2018-02-15] MEDS: GABAPENTIN 300 MG CAP PO SCH ×2 (09:14→20:02)
[2018-02-15] MEDS: PIPER/TAZO/NS 3.375gm 3.375 GM/100 ML BAG IVPB SCH ×2 (09:15→20:01)
[2018-02-15] MEDS: buPROPion HCl 100 MG TAB PO SCH (09:16)
[2018-02-15] MEDS: PANTOPRAZOLE 40MG TABLET PO SCH (09:16)
[2018-02-15] MEDS ORDERED: BISACODYL 10 MG RECTAL SUPP PR ONE (09:50)
[2018-02-15] MEDS ORDERED: DIPHENHYDRAMINE 50 MG/ML VIAL IV ONE (09:50)
--- NOTE | 2018-02-15 11:02 | RAD REPORT ---
EXAM DESCRIPTION: CT - Abdomen Pelvis Wo Contrast - 02/15/2018 10:10 am CLINICAL HISTORY: Abdominal pain, epigastric pain prior appendectomy, cholecystectomy and partial pricilla wel resection COMPARISON: CT imaging July 2016 TECHNIQUE: Axial [address] imaging of the abdomen and pelvis was performed without IV contrast. No IV contrast was given because of allergy, abnormal renal function, patient refusal or physician re quest. No oral contrast was given. All CT scans are performed using dose optimization technique as appropriate and may include automated exposure control or mA/KV adjustment according to patient size. FINDINGS: No suspicious findings in the lung bases. Lung base scarring changes are present. No peric ardial thickening or effusion. The liver, spleen and pancreas show no suspicious findings on non-contrast imaging. Cholecystectomy c lips are present. No biliary tree dilatation. No hydronephrosis or suspicious renal mass. No significant adrenal finding. Isodense renal masses an d pyelonephritis cannot be excluded in the absence of IV contrast. The urinary bladder is without sig nificant finding. Stomach is distended by retained fluid. No gastric wall thickening or mass. A 5 centimeter diverticul um is seen projecting from the fundus of the gallbladder. No gastric outlet obstruction suspected. Du odenum is dilated. There is dilation of proximal small bowel to the distal jejunum level. There is an abrupt transition in the anterior midline abdomen. Near the transition there is fecalized bowel cont ent within the dilated small bowel. Distal to the obstruction the small bowel is decompressed. There is moderate amount of stool in the right-side colon. Left-sided colon is mostly decompressed. Minimal diverticulosis is present. The rectosigmoid anastomosis there is no wall thickening or mass. No acti ve large bowel process. No free air, free fluid or inflammatory stranding. There is thinning of the anterior abdominal wall. No definitive defect in the wall seen. There are postsurgical changes in the subcutaneous fatty tissu es. No obstructing mass seen. Obstruction is likely due to adhesion. Internal hernia would be an chris tional possibility. Prominent disc and bony degenerative changes are present. No acute vascular finding. Findings telephoned to the referring physician 10:58 a.m. IMPRESSION: Small bowel obstruction pattern with an abrupt transition at the distal jejunum. Transit ion point is anterior mid abdomen just deep to the abdominal wall at the umbilicus. Adhesion is favored over internal hernia. An obstructing mass is not identified. No free air, free fluid or spillage of abdominal content. Full assessment is limited is the absence of IV contrast.
[2018-02-15] MEDS: MORPHINE 4 MG/ML SYR IV PRN ×2 (13:34→20:00)
--- NOTE | 2018-02-15 15:18 | PN ---
Date of Progress Note: 02/15/2018 Subjective: The patient seen and examined. Chart reviewed. Case discussed with RN and Dr. Oropeza. The patient complains of continued nausea and vomiting. The patient also stated, he has not had a b owel movement for the past 3 days. Asking for something stronger for pain as he states that he vomit s his oral pain medication. Review of Systems: Negative except as above. Medications: Reviewed. Physical Examination: Vital Signs: Temperature 98.6, heart rate 67, blood pressure 195/88, respirations 16, and OS 96% on room air. General: awake, alert, oriented x3, in some mild distress. Elderly male, ill-appearing, obese. BMI 32. CV: S1, S2. Peripheral pulses present. Respiratory: Moving air well bilaterally. No wheezing. Abdomen: Soft, nontender. Mild distention. Positive bowel sounds. Extremities: No clubbing, cyanosis, or edema. Neuro: Nonfocal. Musculoskeletal: Right BKA. Integumentary: Left arm status post elbow I and D ED, bandaged. Laboratory Data: Sodium 139, potassium 3.4, chloride 104, CO2 26, BUN 21, creatinine 1.14, glucose 1 35, and magnesium 1.6. WBC 15.3, H and H 12 and 35.9, and platelets 334. Wound culture shows a 1+ y east. Blood cultures no growth to date. Assessment And Plan: A 67-year-old male with; 1.Olecranon bursitis, recurrent left elbow. Continue with broad-spectrum IV antibiotics. Antifunga ls added due to wound cultures showing yeast. The patient is status post repeat incision and drainag e. Appreciate Dr. Person's input. Infectious Disease has been consulted. The patient will likel y benefit from LTAC referral and long-term IV antibiotics. 2.Diabetes mellitus type 2 with long-term use of insulin without complication. 3.Essential hypertension, uncontrolled. We will add p.r.n. medications. 4.Obesity, body mass index 32. 5.Status post right below knee amputation. 6.Constipation. We will add Dulcolax. The patient is already on Colace. 7.Intractable nausea and vomiting, noncyclical. We will obtain CT scan abdomen and pelvis without c ontrast. Consult GI. The patient has seen Dr. Titus in the past. 8.Continue with IV antibiotics and wound care. /ALMA Voice ID: [id number] Report ID: [id number]
--- NOTE | 2018-02-15 16:23 | CON ---
History Of Present Illness: This is a 67-year-old male, coming in with left arm cellulitis and absce ss into the elbow area. The patient has significant history of hypertension, diabetes mellitus, psor iasis, cholecystectomy, splenectomy, lumbar surgery, left knee replacement, right AKA, hemorrhoid addy judit, colectomy. Family History: Positive for heart disease and lung disease. Social History: Tobacco positive. Alcohol negative. During this hospitalization, the patient has developed obstruction of the small bowel, especially inv olving the distal jejunum. The patient has also history of diverticulosis, currently being treated w ith IV antibiotic including Zosyn and vancomycin. Physical Examination: Vital Signs: Temperature 98, pulse 67, respirations 16, blood pressure 195/88. HEENT: Unremarkable. Neck: Supple. Lungs: Basal crackles. Heart: S1, S2. Regular. Abdomen: Bowel sounds decreased. Abdominal tenderness noted in all 4 quadrants. Extremities: Trace edema. Left arm in the surgical dressing. Diagnostic Data: MRI of the elbow done here shows osteomyelitis involving the ulna, olecranon proces s. A chest x-ray done on 02/12 shows the patient has a PICC line in place and abdominal CT shows the patient has small bowel obstruction. Laboratory Data: Shows WBC 15,300, hemoglobin 12, platelets are 334. Chemistry shows sodium 139, po tassium 3.4, chloride 104, bicarb 26, BUN 21, creatinine 1.14, glucose is 135. Micro data, blood cul tures negative for 24 hours. Wound cultures negative. Assessment And Plan: 1.Left elbow osteomyelitis with status post debridement of abscess. Continue IV antibiotic. 2.Small bowel obstruction and leukocytosis. Continue supportive care and possible NG tube to reliev e bowel obstruction. We will follow the patient closely. Thank you Dr. Ann and Dr. Stock for consult. NF/MODL Voice ID: [id number] Report ID: [id number]
[2018-02-15] MEDS: FLUCONAZOLE 200mg IVPB 200 MG/100 ML BAG IV SCH (17:06)
--- NOTE | 2018-02-15 21:24 | CON ---
Date of Consultation: 02/15/2018 Brief History Of Present Illness: The patient is a 67-year-old male, who presents with a h istory of hypertension, diabetes, who presented to the ER from Dr. Person's office for possible ol ecranon bursitis. He was admitted on the with the above stated complaint. He ultimately ended up going to the operating room, having a repair and debridement of that area. He developed a small b owel obstruction after surgery. Past Medical History: Significant for hypertension, diabetes, and psoriasis. Past Surgical History: Include cholecystectomy, splenectomy/distal pancreatectomy, lumbar surgery, l eft knee replacement, right AKA +6, knee replacement on the right knee prior to this, appendectomy, h emorrhoid surgery and a partial colectomy for perforated diverticulitis. He also had plastic and rec onstructive surgery and hernia surgery with a revision due to mesh complications. Family History: Significant for heart disease in his mother and father had lung disease. He is a fo rmer smoker. Denies alcohol or recreational drug use. Review of Systems: A 10-point review of systems other than HPI, he denies. Home Medications: Include metoprolol, Colace, Wellbutrin, Neurontin, metformin, methocarbamol, and N orco. Allergies: TO ZOLOFT, WHICH CAUSES A RASH. Physical Examination: Vital Signs: At the time of examination, his BMI is 32.0, blood pressure 174/87, pulse 75, respirato ry rate 16, temperature 98.2. General: He is awake, alert, oriented. Psychiatric: He is appropriate and conversive. HEENT: He is normocephalic. Sclerae anicteric. His mucous membranes are moist. His oropharynx indigo ar. Neck: Supple with no JVD. There is an NG tube in place. Chest: Normal expansion and excursion. Pulmonary: Clear to auscultation bilaterally. Abdomen: Soft with mild global tenderness to palpation. There is multiple well-healed surgical scar s including a left chevron type and a midline laparotomy type incision. Extremities: He has an AKA obvious on the right. Skin: Warm and dry. Laboratory Data: Reveals a white blood cell count of 15.3, hemoglobin 12.0, hematocrit of 35.9, plat elet count is 334. His sodium 139, potassium 3.4, chloride 104, carbon dioxide 26, BUN 21, creatinin e 1.1, glucose is 135. His calcium 9.3, magnesium 1.6. He had a CT scan performed of the abdomen an d pelvis, officially read as on 02/15 as a small bowel obstruction pattern with an abrupt transition of the distal jejunum. Transition point is anterior mid abdomen just deep to the abdominal wall at t he umbilicus. Adhesions favored over internal hernia and obstructing mass is not identified. No osmar e air, free fluid, or spillage of abdominal contents. Full assessment is limited by the absence of I V contrast. Assessment And Plan: This is a 67-year-old male, who presents with signs and symptoms of a postopera tive small bowel obstruction likely due to adhesions and complicated by electrolyte abnormalities. 1.Electrolyte correction of magnesium, phosphorus, potassium, and all electrolytes should be managed closely. 2.Serial abdominal exams. 3.Continue NG tube decompression. 4.The patient is already having resumption of bowel function and improvement of his clinical symptom s. Therefore, I recommend continued nonoperative management at this time. I explained the risks, be nefits, and alternatives of the above stated plan. The patient agrees to proceed as indicated. I wi ll follow along with you. Thank you for this interesting consult. ALEXEI/ALMA Voice ID: [id number] Report ID: [id number]
[2018-02-15] MEDS: VANCOMYCIN 1.5 GM in NA CHLORIDE 0.9% 500 ML IVPB SCH (21:36)
[2018-02-16] MEDS: MORPHINE 4 MG/ML SYR IV PRN ×2 (04:58→16:27)
[2018-02-16 05:43] LABS: Absolute Lymphocytes (CBC) 4.5 K/uL (0.7-4.9); Absolute Monocytes 2.4 K/uL (0.1-1.3); Absolute Neutrophil 8.3 K/uL (1.8-8.0); Basophils % 0.3 % (0-1.3); Hematocrit 36.5 % (39.6-49.0); Lymphocytes % 27.6 % (15.3-44.8); MCH 30.3 pg (27.0-35.0); MCV 90.2 fL (80-100); MPV 9.2 fL (7.6-11.3); Monocytes % 14.6 % (3.3-12.3); RBC Red Blood Cell Count 4.05 M/uL (4.33-5.43)
[2018-02-16 05:47] LABS: Magnesium 1.7 mg/dL (1.8-2.5); Potassium 3.6 mEq/L (3.6-5.0)
[2018-02-16] MEDS: INSULIN -REGULAR HUMAN 50 UNIT/0.5 ML ML SQ SCH ×4 (07:30→21:00)
[2018-02-16] MEDS: PANTOPRAZOLE 40MG TABLET PO SCH (07:30)
[2018-02-16] MEDS: METOPROLOL XL 100 MG TAB PO SCH (08:31)
[2018-02-16] MEDS: buPROPion HCl 100 MG TAB PO SCH (08:31)
[2018-02-16] MEDS: DOCUSATE NA 100 MG CAP PO SCH ×2 (08:31→20:54)
[2018-02-16] MEDS: GABAPENTIN 300 MG CAP PO SCH ×2 (08:31→20:54)
[2018-02-16] MEDS: PIPER/TAZO/NS 3.375gm 3.375 GM/100 ML BAG IVPB SCH ×2 (08:33→20:54)
[2018-02-16] MEDS ORDERED: KCL 20 MEQ/100 mL IVPB 20 MEQ/100 ML BAG IV SCH (09:00)
[2018-02-16] MEDS ORDERED: MAGNESIUM SULFATE 1 gm IVPB 1 GM/100 ML BAG IV ONE (09:00)
[2018-02-16] MEDS: PROMETHAZINE 25 MG/ML VIAL IV PRN ×2 (09:52→20:54)
--- NOTE | 2018-02-16 09:58 | P.PN ---
Subjective Date of Service: 02/16/18 Primary Care Provider: Dr Amador and Dr Person Chief Complaint: Olecron Brusitis Subjective: Improving (Patient passed some gas, and had improvement in abdominal pain and distention, but continues to have nausea with NG tube and output remained high.) Physical Examination - Vital Signs Temperature: 97 F Blood Pressure: 153/97 Pulse: 67 Respirations: 18 Pulse Ox (%): 97 - Physical Exam General: Alert, In no apparent distress, Cooperative HEENT: Mucous membr. moist/pink Gastrointestinal: Other (soft, mild distention, improved abodminal pain and distention but remains present) - Studies Laboratory Data (last 24 hrs) 02/16/18 05:05: Sodium 140, Potassium 3.6, BUN 22 H, Creatinine 1.16, Glucose 140 H, Magnesium 1.7 L 02/16/18 05:05: WBC 16.2 H, Hgb 12.2 L, Hct 36.5 L, Plt Count 360 02/15/18 20:00: Potassium 3.5 L Microbiology Data (last 24 hrs): 02/10/18 18:35 Blood Aerobic Blood Culture - Final No growth in 5 days. 02/10/18 18:35 Blood Anaerobic Blood Culture - Final 02/10/18 18:50 Blood Aerobic Blood Culture - Final No growth in 5 days. 02/10/18 18:50 Blood Anaerobic Blood Culture - Final No growth in 5 days. 02/11/18 14:30 Wound - Other Gram Stain - Final 02/11/18 14:30 Wound - Other Culture & Sensitivity - Final 02/11/18 14:30 Body Fluid - Other Gram Stain - Final 02/11/18 14:30 Body Fluid - Other Anaerobic Culture - Final NO ANAEROBES GROWN. Medications List Reviewed: Yes Assessment And Plan - Current Problems (Diagnosis) (1) Bowel obstruction Current Visit: Yes Status: Acute Plan: - Keep NG tube today - out of bed with assist - serial exams - electrolyte correction - continue medical management - incentive spirometry
[2018-02-16] MEDS: FLUCONAZOLE 400 MG IVPB 400 MG/200 ML BAG IV SCH (16:51)
--- NOTE | 2018-02-16 19:22 | PN ---
Date of Progress Note: 02/16/2018 Subjective: The patient is seen and examined. Chart reviewed. Case discussed with RN and Dr. Diallo ortiz. The patient states he is feeling significantly better in terms of his abdominal pain. Still hav ing some nausea, but NG tube is in place with significant output. The patient has passed some gas an d has had a bowel movement yesterday. The pain is tolerable. Review of Systems: Negative except as above. Medications: Reviewed. Physical Examination: Vital Signs: Temperature 97.1, heart rate 72, blood pressure 132/82, respirations 18, O2 97% on room air. General: Awake, alert, and oriented x3, in some mild distress due to pain. CV: S1 and S2. No murmurs. Regular rate and rhythm. Peripheral pulses present. Respiratory: Clear to auscultation bilaterally. No wheezing. Abdomen: Soft. Mild tenderness to palpation in the epigastric region. No rebound or guarding. NG tube in place. Bowel sounds hypoactive. Extremities: No clubbing, cyanosis, or edema. Musculoskeletal: Right BKA. Neurologic: Nonfocal. Laboratory Data: Sodium 140, potassium 3.6, chloride 105, CO2 27, BUN 22, creatinine 1.16, glucose 1 40, calcium 9.2, magnesium 1.7. WBC 16.2, H and H 12.2 and 36.5, platelets 360, neutrophils 51%. Bl ood cultures negative final. Left elbow wound culture shows mixed monae. Skin, body fluid culture s hows no anaerobes, no WBCs or organisms. Wound culture shows 1+ yeast. Assessment: A 67-year-old male with; 1.Olecranon bursitis, recurrent left elbow with osteomyelitis. We will continue IV antibiotics and antifungals. The patient has undergone repeat incision and drainage. ID and Orthopedics on board. 2.Diabetes mellitus type 2 with long-term use of insulin without complication. Continue sliding sca le insulin. 3.Small bowel obstruction. Continue NG tube decompression, n.p.o. 4.Essential hypertension, uncontrolled. We will continue with IV p.r.n. medications. 5.Obesity, BMI of 32. 6.Status post right below knee amputation. 7.Intractable nausea and vomiting secondary to small bowel obstruction, improved. Plan: We will continue with IV antibiotics. White count is still elevated, trending up. Appreciate ID input. We will increase dose of Diflucan. Likely clamp NG tube in a.m. and start on clears if o utput decreases. SA/MODL Voice ID: [id number] Report ID: [id number]
[2018-02-16] MEDS: VANCOMYCIN 1.5 GM in NA CHLORIDE 0.9% 500 ML IVPB SCH (20:53)
--- NOTE | 2018-02-16 21:38 | PN ---
Subjective: This is a 67-year-old male, lying in bed, not in any acute distress. No diarrhea. No n ew wounds. The patient is having NG tube placement for small bowel obstruction. Feeling better toda y. Objective: Vital Signs: Temperature 97, pulse 69, respirations 18, blood pressure 134/81. Lungs: Basal crackles. Heart: S1, S2. Regular. Abdomen: Soft, nontender. Bowel sounds positive. Extremities: Trace edema. Laboratory Data: WBC 16,000, hemoglobin 12.2, platelets are 360. Chemistry shows sodium 140, potass ium 3.6, chloride 105, bicarb 27, BUN 22, creatinine 1.6, glucose 140. Micro data cultures are negat mark for more than 5 days. Assessment And Plan: Left elbow osteomyelitis and abscess, status post debridement, leukocytosis. C ontinue antibiotic and wound care. We will follow the patient as needed. Small bowel obstruction on NG tube. We will follow the patient as needed. NF/MODL Voice ID: [id number] Report ID: [id number]
[2018-02-17] MEDS: MORPHINE 4 MG/ML SYR IV PRN ×3 (00:25→14:48)
[2018-02-17 06:08] LABS: Absolute Lymphocytes (CBC) 5.3 K/uL (0.7-4.9); Absolute Monocytes 2.4 K/uL (0.1-1.3); Basophils % 1.1 % (0-1.3); Eosinophils % 6.2 % (0-4.4); Lymphocytes % 31.3 % (15.3-44.8); MCV 91.9 fL (80-100); RBC Red Blood Cell Count 3.92 M/uL (4.33-5.43)
[2018-02-17 06:17] LABS: Magnesium 1.7 mg/dL (1.8-2.5); Potassium 3.4 mEq/L (3.6-5.0)
[2018-02-17] MEDS ORDERED: MAGNESIUM SULFATE 1 gm IVPB 1 GM/100 ML BAG IV ONE (06:24)
[2018-02-17] MEDS: PANTOPRAZOLE 40MG TABLET PO SCH (07:30)
[2018-02-17] MEDS: INSULIN -REGULAR HUMAN 50 UNIT/0.5 ML ML SQ SCH ×3 (07:30→16:30)
[2018-02-17] MEDS: GABAPENTIN 300 MG CAP PO SCH (07:54)
[2018-02-17] MEDS: DOCUSATE NA 100 MG CAP PO SCH (07:54)
[2018-02-17] MEDS: METOPROLOL XL 100 MG TAB PO SCH (07:55)
[2018-02-17] MEDS: buPROPion HCl 100 MG TAB PO SCH (07:55)
[2018-02-17] MEDS: PIPER/TAZO/NS 3.375gm 3.375 GM/100 ML BAG IVPB SCH (08:20)
[2018-02-17] MEDS: KCL 20 MEQ/100 mL IVPB 20 MEQ/100 ML BAG IV SCH ×2 (08:21→10:56)
--- NOTE | 2018-02-17 10:01 | P.PN ---
Subjective Date of Service: 02/17/18 Primary Care Provider: Dr Amador and Dr Person Chief Complaint: Partial Small Bowel Obstruction Subjective: Improving (Patient states he took alot of PO liquid even though he was NPO, he has passed more gas, has no abdominal pain, no distention any longer. He is hungry) Physical Examination - Vital Signs Temperature: 97 F Blood Pressure: 145/83 Pulse: 82 Respirations: 18 Pulse Ox (%): 96 - Physical Exam General: Alert, In no apparent distress, Cooperative Gastrointestinal: Soft and benign, Non-distended, No ascites, No tenderness, No masses, No rebound, No guarding Neurological: Normal speech - Studies Laboratory Data (last 24 hrs) 02/17/18 05:43: Sodium 143, Potassium 3.4 L, BUN 20, Creatinine 1.16, Glucose 94 , Magnesium 1.7 L 02/17/18 05:43: WBC 16.9 H, Hgb 11.7 L, Hct 36.0 L, Plt Count 230 D Medications List Reviewed: Yes Assessment And Plan - Current Problems (Diagnosis) (1) Bowel obstruction Current Visit: Yes Status: Acute Plan: - clamp trial for NG tube today - out of bed with assist - serial exams - electrolyte correction - continue medical management - incentive spirometry - RT consult
[2018-02-17] MEDS: PROMETHAZINE 25 MG/ML VIAL IV PRN (11:03)
--- NOTE | 2018-02-17 12:20 | P.PN ---
Subjective Date of Service: 02/17/18 Primary Care Provider: Dr Amador and Dr Person Chief Complaint: Partial Small Bowel Obstruction Subjective: Improving (Feels better tolerated limited clears yesterday without problem. NGT clamped by surgery today with trial checks of residuals ongoing now.) Review of Systems Unremarkable Physical Examination - Vital Signs Temperature: 97 F Blood Pressure: 145/83 Pulse: 82 Respirations: 18 Pulse Ox (%): 96 - Physical Exam General: Alert, In no apparent distress, Oriented x3, Cooperative HEENT: Atraumatic, Normocephalic, PERRLA, EOMI Neck: Supple Respiratory: Normal air movement Cardiovascular: Normal pulses Gastrointestinal: Soft and benign, No tenderness, No rebound, No guarding Neurological: Normal speech, Normal strength at 5/5 x4 extr - Studies Laboratory Data (last 24 hrs) 02/17/18 05:43: Sodium 143, Potassium 3.4 L, BUN 20, Creatinine 1.16, Glucose 94 , Magnesium 1.7 L 02/17/18 05:43: WBC 16.9 H, Hgb 11.7 L, Hct 36.0 L, Plt Count 230 D Medications List Reviewed: Yes Assessment And Plan - Current Problems (Diagnosis) (1) Nausea & vomiting Current Visit: Yes Status: Acute Comment: Improved. Tolerated clear liquids yesterday. (2) Small bowel obstruction Onset Date: 01/09/15 Current Visit: No Status: Acute (3) Depression Onset Date: 12/29/17 Current Visit: No Status: Chronic Qualifiers: Depression Type: unspecified Qualified Code(s): F32.9 - Major depressive disorder, single episode, unspecified (4) Obesity Onset Date: 02/11/18 Current Visit: No Status: Chronic Qualifiers: Obesity type: due to excess calories Obesity classification: adult class 1 (BMI 30 - 34.9) Serious obesity comorbidity presence: with serious comorbidity Body mass index: BMI 33.0-33.9 Qualified Code(s): E66.09 - Other obesity due to excess calories; Z68.33 - Body mass index (BMI) 33.0-33.9, adult; Z68.33 - Body mass index (BMI) 33.0-33.9, adult (5) Acute renal injury Onset Date: 12/29/17 Current Visit: No Status: Resolved (6) Dehydration Onset Date: 12/29/17 Current Visit: No Status: Resolved - Plan REC: 1) await NGT clamp trial ongoing now 2) check KUB 3) monitor electrolytes
--- NOTE | 2018-02-17 14:37 | PN ---
Date of Progress Note: 02/17/2018 Subjective: The patient seen and examined. Chart reviewed. Case discussed with RN. The patient wa s then doing better. NG tube is now clamped. Does not complain of any nausea, vomiting, or abdomina l pain. The patient face timed his and all questions were answered. Case discussed with Dr. Jhon olivera. The patient has been accepted to [facility]. Review of Systems: Negative except as per HPI. Medications: Reviewed. Physical Examination: Vital Signs: Temperature 97, heart rate 82, blood pressure is 145/83, respirations 18, O2 96% on margie m air. General: Awake, alert, oriented x3, in no acute distress. CV: S1, S2. No murmurs. Peripheral pulses present. Respiratory: Moving air well bilaterally. No wheezing. Abdomen: Soft, nontender, nondistended. Positive bowel sounds. Extremities: No clubbing, cyanosis, edema on the left lower extremity. Musculoskeletal: Right BKA. Left arm bandaged. Incision site clean, dry, intact. Neurologic: Nonfocal. Laboratory Data: Sodium 143, potassium 3.4, chloride 112, CO2 24, BUN 20, creatinine 1.16, glucose 9 4, calcium 9.1, magnesium 1.7. WBC 16.9, H and H 11.7 and 36, platelets 230, neutrophils 47.4%. Blo od cultures, no growth to date. Wound culture growing 1+ yeast. Assessment And Plan: A 67-year-old male with; 1.Olecranon bursitis with recurrent left elbow osteomyelitis. We will continue antibiotics and anti fungals. The patient is status post repeat incision and drainage. WBC count still elevated. The pa tient is afebrile, but will need long-term IV antibiotic. 2.Diabetes mellitus type 2 with long-term use of insulin without complication. Continue sliding sca le insulin. 3.Small bowel obstruction. Nasogastric tube clamped, will likely be discontinued today. We will st art patient on clear liquids. Appreciate Dr. Hernandez's input. 4.Essential hypertension, stable on medications. 5.Obesity, BMI 32. 6.Status post right below knee amputation. 7.Intractable nausea and vomiting secondary to small bowel obstruction, resolved. Plan: The patient has been accepted to [facility]. Once patient's NG tube is out and tolerating di et, we will likely discharge in the next 24 hours. /ALMA Voice ID: [id number] Report ID: [id number]
--- NOTE | 2018-02-17 14:40 | RAD REPORT ---
EXAM DESCRIPTION: RAD - Abdomen 1 View (KUB) - 02/17/2018 2:19 pm CLINICAL HISTORY: Small bowel obstruction COMPARISON: CT study February 15 FINDINGS: NG tube is in place. Stomach is decompressed. Prominent small bowel loops are present. Loo ps have decreased in size in the proximal small bowel. Scattered air and stool in nondilated colon. P atient did not receive oral contrast for the CT study so no assessment can be made of contrast moveme nt across any possible point of obstruction. No free air or pneumatosis. No suspicious calcifications . Postsurgical change noted at the lumbosacral junction. No suspicious calcifications. IMPRESSION: Proximal small bowel loops have decreased in prominence. No progressive small bowel obst ruction. Stomach is decompressed. No free air or pneumatosis.
[2018-02-17] MEDS ORDERED: PNEUMOCOCCAL VACCINE 0.5 ML IMVAC ONE (15:00)
[2018-02-17 15:57] VITALS: BP 132/64; TEMP 98.2
[2018-02-17 16:27] VITALS: O2SAT 95
[2018-02-17] MEDS: FLUCONAZOLE 400 MG IVPB 400 MG/200 ML BAG IV SCH (17:00)
--- NOTE | 2018-02-18 15:09 | DS ---
Date of Discharge: 02/17/2018 Consultants: 1. Dr. Titus, GI. 2. Monty Hernandez M.D., by General Surgery. 3. Dr. Oropeza, ID. 4. Dr. Person, orthopedic. Procedures: I&D Left elbow Admitting Diagnoses: 1. Olecranon bursitis of the left elbow. 2. Diabetes mellitus type 2 without long-term use of insulin without complication. 3. Essential hypertension. 4. Obesity, BMI of 32. 5. Status post right below knee amputation. Discharge Diagnoses: 1. 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 2. Diabetes mellitus type 2 without complication, without long-term use of insulin. 3. Small bowel obstruction, resolved. 4. Essential hypertension, stable. 5. Obesity, BMI of 32. 6. Right below knee amputation. 7. Intractable nausea and vomiting secondary to small bowel obstruction, resolved. Hospital Course: The patient is a 67-year-old male who came in with recurrent olecranon bursitis. The patient was admitted a month ago for septic elbow joint and was sent to LTAC for IV antibiotics and wound care. The patient left the LTAC earlier than was recommended by Infectious Disease. The patient had recurrence of his symptoms and was readmitted for olecranon bursitis. Dr. Person with Orthopedics was consulted. The patient had I and D done on 02/11 with repeat I and D on 02/13/2018. Cultures were obtained. Blood cultures remained negative. Body fluid culture did not show any growth. Wound culture did show 1+ yeast. The patient had some improvement in his white blood cell count, however, continued to remain somewhat elevated. He had some mild electrolyte abnormalities, which were corrected. He was continued on broad- spectrum IV antibiotics and antifungals were added. The patient then developed intractable nausea and vomiting. A CT scan of the abdomen was done, which showed small bowel obstruction. NG tube was placed. Surgery and GI were consulted. The patient had significant output from his NG tube. The patient began to feel better. He was no longer nauseated or vomiting. NG tube was clamped and the patient was significantly improved. His pathology specimen showed fibroconnective tissue with acute inflammation and necrosis from the left elbow. The patient was then cleared for discharge from performance test consultant's standpoint. He was also seen by Infectious Disease, Dr. Oropeza, who recommended 6 weeks of IV antibiotics. The patient was then referred to LTAC and was accepted by [facility]. The patient was then discharged to [facility] in a fair condition. Activity: Fall precautions. Diet: Clear liquids, advance as tolerated. Followup: With second physician at [facility] upon transfer. Follow up with Orthopedic surgeon, Dr. Person in 1 week. Follow up with Infectious Disease , Dr. Oropeza, in 1 week. Return to ER for worsening condition. The patient to have monitoring of kidney function, CBC, CMP, ESR, and CRP weekly or while on IV antibiotics. Vanc trough before fourth dose. Medications: As per medication reconciliation list. The patient will complete dose of Diflucan, Zosyn, and vancomycin for a total of 6 weeks. Total time spent discharging patient was 42 minute. Please see his progress note on day of discharge, for physical exam and findings. MARY BETH Voice ID: [id number] Report ID: [id number] JOSE
--- NOTE | 2018-02-27 15:03 | CON ---
Date of Consultation: 02/16/2018 Reason For Consultation: Persistent nausea and vomiting secondary to mechanical small bowel obstruct ion. History Of Present Illness: The patient is a 67-year-old white male with history of diabetes, hypert ension, hyperlipidemia, diverticulosis, prior pancreatitis, psoriasis, MRSA, right AKA surgery with M RSA extremity as well. The patient was admitted in the hospital with persistent nausea, vomiting, an d found to have mechanical small-bowel obstruction. Ongoing surgical therapy now with conservative t herapy with NG tube to low intermittent wall suction. NG tube, feels much better since ad mission, stating that he does not have much nausea now. Past Medical History: Significant for diabetes, hypertension, hyperlipidemia, diverticulosis, histor y of pancreatitis, psoriasis, MRSA right lower extremity before AK amputation. Surgical History: Right sooon-rvd-bjgb amputation and left knee replacement. Social History: Positive for being a smoker, drinking alcohol, occasionally Scotch, Margaritas, bloo dy Nadja. Allergies: NKDA. Home Medications: See list. In the past, he has been on OxyContin, metformin, Chantix, Pristiq, Kwaku axin, Diovan, hydrochlorothiazide, metoprolol, Lyrica. Review of Systems: The patient has nausea and vomiting, improving. No melena, hematochezia, hematemesis, coffee-grounds emesis, hematuria, dysuria, polydipsia, chest pain, shortness of breath, seizure, syncope, lower ext remity edema, muscle aches, joint aches, backaches. Physical Examination: Vital Signs: The patient had a temperature to 97.1 degrees Fahrenheit, pulse 72, respirations 18, bl ood pressure 132/83, O2 saturation 97% on room air. If he is 236 pounds, 6 foot, BMI of 32 kg/m2. Data: The patient has a white count of 16.2, hemoglobin of 12.2, hematocrit 36.5, MCV of 90, platele t count of 360, polys of 53%, lymphocytes 28%, monocytes 15%, eosinophils 6%. The patient has a PT 1 1.9, INR of 1.01, PTT of 28.4. Sodium 140, potassium 3.6, chloride 105, bicarb 27, BUN 22, creatinin e of 1.2, glucose 140, calcium 9.2, magnesium 1.7. UA on the was negative except for 2+ glucose , otherwise negative. CT abdomen and pelvis on , revealed small bowel obstruction pattern with abrupt transition point at distal jejunum, dressing point anterior mid abdomen just deep to the abdominal wall at the umbilic us. Adhesion is favored over internal hernia. Obstructing mass is not identified. Impression: Nausea, vomiting, and mechanical small-bowel obstruction has improved with conservative therapy with NG tube to low intermittent wall suction manner. The patient feels much better. Recommendation: 1.Agree with IV fluids, IV antibiotics. 2.NG tube to low intermittent wall suction. 3.Surgery following. We will follow along. OSORIO/ALMA Voice ID: [id number] Report ID: [id number]
== END 2018-02-17 19:35 | DRG 501 ==
LOC: 4TH 17:51
PROVIDERS: ADMIT Family Medicine; ATTEND Family Medicine
PROC: 0M940ZZ Drainage of Left Elbow Bursa and Ligament, Open Approach (ICD-10-PCS; principal; 2018-02-11 13:30)
PROC: 02HV33Z Insertion of Infusion Device into Superior Vena Cava, Percutaneous Approach (ICD-10-PCS; 2018-02-12)
PROC: 0JQH0ZZ Repair Left Lower Arm Subcutaneous Tissue and Fascia, Open Approach (ICD-10-PCS; 2018-02-13)
DX: M70.22 Olecranon bursitis, left elbow (principal); M86.18 Other acute osteomyelitis, other site; K56.50 Intestinal adhesions [bands], unspecified as to partial versus complete obstruction; L02.414 Cutaneous abscess of left upper limb; N17.9 Acute kidney failure, unspecified; K59.00 Constipation, unspecified; E86.0 Dehydration; I10 Essential (primary) hypertension; E66.9 Obesity, unspecified; E11.69 Type 2 diabetes mellitus with other specified complication; Z68.32 Body mass index [BMI] 32.0-32.9, adult; Z89.611 Acquired absence of right leg above knee; Z23 Encounter for immunization
CPT/HCPCS: 36415; 71045; 74018; 74176; 80048; 80053; 80202; 81003; 82962; 83605; 83735; 84100; 84132; 85025; 85610; 85730; 87040; 87070; 87075; 87086; 87088; 87205; 88304; 90670; 94760; G0009; J0330; J1100; J1450; J2175; J2250; J2370; J2405; J2543; J2550; J3010; J3475; J7030

== ENCOUNTER 2018-03-31 18:56 | Inpatient (IN) | payer OTHER ==
[2018-03-31] MEDS ORDERED: CEFEPIME 1 GM/100 ML BAG IV ONE (21:10)
--- NOTE | 2018-03-31 21:10 | ER ---
Nurse's Notes [facility] Name: Anish Leon Age: 67 yrs Sex: Male : 1950 Arrival Date: 03/31/2018 Time: 19:00 Bed 24 Private MD: Diagnosis: Abscess of bursa, elbow Presentation: 03/31 19:11 Presenting complaint: Patient states: PICC line pulled out today. Sent by Dr Oropeza. aj Transition of care: patient was not received from another setting of care. Onset of symptoms was March 31, 2018. Initial Sepsis Screen: Does the patient meet any 2 criteria? No. Patient's initial sepsis screen is negative. Does the patient have a suspected source of infection? No. Patient's initial sepsis screen is negative. Care prior to arrival: None. 19:11 Method Of Arrival: Wheelchair aj 19:11 Acuity: DESHAWN 3 bb Triage Assessment: 19:13 General: Appears in no apparent distress. comfortable, Behavior is calm, cooperative, aj appropriate for age. Pain: Denies pain. Neuro: Level of Consciousness is awake, alert, obeys commands, Oriented to person, place, time, situation, Appropriate for age. Respiratory: Airway is patent Respiratory effort is even, unlabored, Respiratory pattern is regular, symmetrical. Derm: Skin is intact, is healthy with good turgor, Skin is pink, warm \\T\\ dry. normal. Historical: - Allergies: 19:13 Zoloft; aj - Home Meds: 19:13 Flomax 0.4 mg Oral cp24 1 cap once daily [Active]; gabapentin 300 mg Oral cap 1 cap 3 aj times per day [Active]; metformin 500 mg Oral tab 1 tab 2 times per day [Active]; metoprolol tartrate 100 mg Oral tab 1 tab 2 times per day [Active]; Oxycodone HCl Oral [Active]; Robaxin 500 mg Oral tab 2 tabs [Active]; splint [Active]; valsartan Oral [Active]; Wellbutrin 200 Oral tab 1 tab 2 times per day [Active]; - PMHx: 19:13 Diabetes - NIDDM; Hypertension; neuron pain; prostate problems; aj - PSHx: 19:13 right knee amputation; Cholecystectomy; Appendectomy; aj - Immunization history:: Adult Immunizations up to date. - Social history:: Smoking status: Patient/guardian denies using tobacco. Screenin:00 Abuse screen: Denies threats or abuse. Denies injuries from another. Nutritional kr2 screening: No deficits noted. Tuberculosis screening: No symptoms or risk factors identified. Fall Risk None identified. Assessment: 20:01 General: Appears in no apparent distress. comfortable, well groomed, well developed, kr2 well nourished, Behavior is calm, cooperative, appropriate for age. Pain: Denies pain. Neuro: Level of Consciousness is awake, alert, obeys commands, Oriented to person, place, time, situation. Cardiovascular: Capillary refill < 3 seconds in bilateral fingers Patient's skin is warm and dry. Pulses are palpable in right radial artery and left radial artery. Respiratory: Airway is patent Respiratory effort is even, unlabored, Respiratory pattern is regular, symmetrical. GI: Abdomen is flat, non-distended. : No signs and/or symptoms were reported regarding the genitourinary system. EENT: Oral mucosa is moist. Derm: Skin is healthy with good turgor, Skin is pink, warm \\T\\ dry. Wound noted left arm Wound is covered with bandage and stephanie wrap that is clean dry and intact. Musculoskeletal: Amputation of right lower extremity. Circulation, motion, and sensation intact. 20:04 Reassessment: patient has PICC line to right upper extremity. That he states "came out kr2 part of the way and he is not sure how.". 21:00 Reassessment: Patient appears in no apparent distress at this time. Patient and/or kr2 family updated on plan of care and expected duration. Pain level reassessed. Patient is alert, oriented x 3, equal unlabored respirations, skin warm/dry/pink. PICC line out. Dressing applied. No bleeding, no distress. PICC line intact. Patient denies pain at this time. 22:23 Reassessment: Patient appears in no apparent distress at this time. Patient and/or kr2 family updated on plan of care and expected duration. Pain level reassessed. Patient is alert, oriented x 3, equal unlabored respirations, skin warm/dry/pink. Patient denies pain at this time. 23:44 Reassessment: report called to Dilma GOEL for room 213. bb Vital Signs: 19:13 BP 122 / 92; Pulse 65; Resp 20; Temp 98.5; Pulse Ox 98% on R/A; Weight 106.59 kg; aj Height 6 ft. 0 in. (182.88 cm); Pain 0/10; 21:00 BP 156 / 78; Pulse 65; Resp 16; Pulse Ox 98% on R/A; kr2 22:21 BP 177 / 85; Pulse 64; Resp 17; Pulse Ox 98% on R/A; kr2 23:58 BP 174 / 99; Pulse 66; Resp 16; Pulse Ox 99% on R/A; kr2 19:13 Body Mass Index 31.87 (106.59 kg, 182.88 cm) aj ED Course: 19:00 Patient arrived in ED. sb2 19:11 Luh Reynaga FNP-C is PHCP. kb 19:11 Krish Sandoval MD is Attending Physician. kb 19:12 Triage completed. aj 19:13 Arm band placed on left wrist. Patient placed in an exam room. aj 19:43 Alisa Melendez, AMANDO is Primary Nurse. kr2 20:00 Patient has correct armband on for positive identification. Bed in low position. Call kr2 light in reach. Side rails up X2. Pulse ox on. NIBP on. Door closed. Head of bed elevated. 20:40 Missed attempt(s): 22 gauge in right forearm. Bleeding controlled, band aid applied, kr2 catheter tip intact. 20:45 Inserted saline lock: 20 gauge in right forearm, using aseptic technique. kr2 21:09 Neelima Becker MD is Hospitalizing Provider. kb 23:45 No provider procedures requiring assistance completed. Patient admitted, IV remains in bb place. Administered Medications: 21:17 Drug: Cefepime 1 grams Route: IVPB; Rate: 200 ml/hr; Infused Over: 30 mins; Site: right kr2 forearm; 22:10 Follow up: Response: No adverse reaction; IV Status: Completed infusion kr2 22:20 Drug: vancoMYCIN 1 grams Route: IVPB; Infused Over: 2 hrs; Site: right forearm; kr2 23:46 Follow up: IV Status: Infusion continued upon admission bb 23:59 Follow up: Response: No adverse reaction; IV Status: Infusion continued upon admission kr2 Outcome: 21:09 Decision to Hospitalize by Provider. kb 23:45 Admitted to Tele accompanied by tech, via stretcher, room 213, with chart, Report bb called to Dilma GOEL 23:45 Condition: stable 23:45 Instructed on the need for admit. 04/01 00:00 Patient left the ED. kr2 Signatures: Luh Reynaga, MEAGAN-Nicanor QUALITY PROCESS LEAD-Ana Márquez RN RN aj Diane Wick RN RN bb Alisa Melendez RN RN kr2 Kena Ferguson sb2 Corrections: (The following items were deleted from the chart) 03/31 19:41 19:11 Acuity: DESHAWN 4 aj bb 23:57 21:00 Reassessment: Patient appears in no apparent distress at this time. Patient kr2 and/or family updated on plan of care and expected duration. Pain level reassessed. Patient is alert, oriented x 3, equal unlabored respirations, skin warm/dry/pink. Patient denies pain at this time. kr2 04/01 00:01 03/31 20:01 Musculoskeletal: Circulation, motion, and sensation intact. kr2 kr2
--- NOTE | 2018-03-31 21:10 | EDPHYS ---
Physician Documentation [facility] Name: Anish Leon Age: 67 yrs Sex: Male : 1950 Arrival Date: 03/31/2018 Time: 19:00 Bed 24 Private MD: ED Physician Krish Sandoval HPI: 03/31 21:10 This 67 yrs old Male presents to ER via Wheelchair with complaints of REPLACE kb PIC LINE. 21:10 Pt has been getting IV antibiotics for an abscess of bursa, left elbow, through a picc kb line. States today his picc line was pulled out. Called Dr Oropeza and was told to come to the ER for replacement. Severity of symptoms: At their worst the symptoms were mild in the emergency department the symptoms are unchanged. The patient has experienced similar episodes in the past. The patient has been recently seen by a physician:. Historical: - Allergies: 19:13 Zoloft; aj - Home Meds: 19:13 Flomax 0.4 mg Oral cp24 1 cap once daily [Active]; gabapentin 300 mg Oral cap 1 cap 3 aj times per day [Active]; metformin 500 mg Oral tab 1 tab 2 times per day [Active]; metoprolol tartrate 100 mg Oral tab 1 tab 2 times per day [Active]; Oxycodone HCl Oral [Active]; Robaxin 500 mg Oral tab 2 tabs [Active]; splint [Active]; valsartan Oral [Active]; Wellbutrin 200 Oral tab 1 tab 2 times per day [Active]; - PMHx: 19:13 Diabetes - NIDDM; Hypertension; neuron pain; prostate problems; aj - PSHx: 19:13 right knee amputation; Cholecystectomy; Appendectomy; aj - Immunization history:: Adult Immunizations up to date. - Social history:: Smoking status: Patient/guardian denies using tobacco. ROS: 20:23 Constitutional: Negative for fever, chills, and weight loss, Cardiovascular: Negative kb for chest pain, palpitations, and edema, Respiratory: Negative for shortness of breath, cough, wheezing, and pleuritic chest pain, Abdomen/GI: Negative for abdominal pain, nausea, vomiting, diarrhea, and constipation, Back: Negative for injury and pain, : Negative for injury, bleeding, discharge, and swelling, MS/Extremity: Negative for injury and deformity, Neuro: Negative for headache, weakness, numbness, tingling, and seizure. 20:23 Skin: Positive for abscess, of the left elbow. Exam: 20:21 Constitutional: This is a well developed, well nourished patient who is awake, alert, kb and in no acute distress. Head/Face: Normocephalic, atraumatic. ENT: Nares patent. No nasal discharge, no septal abnormalities noted. Tympanic membranes are normal and external auditory canals are clear. Oropharynx with no redness, swelling, or masses, exudates, or evidence of obstruction, uvula midline. Mucous membranes moist. Neck: Trachea midline, no thyromegaly or masses palpated, and no cervical lymphadenopathy. Supple, full range of motion without nuchal rigidity, or vertebral point tenderness. No Meningismus. Chest/axilla: Normal chest wall appearance and motion. Nontender with no deformity. No lesions are appreciated. Cardiovascular: Regular rate and rhythm with a normal S1 and S2. No gallops, murmurs, or rubs. Normal PMI, no JVD. No pulse deficits. Respiratory: Lungs have equal breath sounds bilaterally, clear to auscultation and percussion. No rales, rhonchi or wheezes noted. No increased work of breathing, no retractions or nasal flaring. Abdomen/GI: Soft, non-tender, with normal bowel sounds. No distension or tympany. No guarding or rebound. No evidence of tenderness throughout. MS/ Extremity: Pulses equal, no cyanosis. Neurovascular intact. Full, normal range of motion. Neuro: Awake and alert, GCS 15, oriented to person, place, time, and situation. Cranial nerves II-XII grossly intact. Motor strength 5/5 in all extremities. Sensory grossly intact. Cerebellar exam normal. Normal gait. Vital Signs: 19:13 BP 122 / 92; Pulse 65; Resp 20; Temp 98.5; Pulse Ox 98% on R/A; Weight 106.59 kg; aj Height 6 ft. 0 in. (182.88 cm); Pain 0/10; 21:00 BP 156 / 78; Pulse 65; Resp 16; Pulse Ox 98% on R/A; kr2 22:21 BP 177 / 85; Pulse 64; Resp 17; Pulse Ox 98% on R/A; kr2 23:58 BP 174 / 99; Pulse 66; Resp 16; Pulse Ox 99% on R/A; kr2 19:13 Body Mass Index 31.87 (106.59 kg, 182.88 cm) aj MDM: 19:45 Patient medically screened. kb 20:16 Data reviewed: vital signs, nurses notes. Data interpreted: Pulse oximetry: on room air kb is 98 %. Interpretation: normal. Counseling: I had a detailed discussion with the patient and/or guardian regarding: the historical points, exam findings, and any diagnostic results supporting the discharge/admit diagnosis, the need for further work-up and treatment in the hospital. ED course: Dr Oropeza sent pt to be admitted, spoke with Dr Sandoval. Pt is to be admitted to hospitalist (PCP is Dr Moncada) with consult to Sandip. PICC line placement, vancomycin 1gm IV Q 12 hours and cefepime 1gm IV Q12 hours are to be ordered for admission. 21:08 Physician consultation: Neelima Becker MD was contacted at 21:08, regarding admission, kb to the medical/surgical unit. patient's condition, and will see patient in ED. 03/31 20:10 Order name: CBC with Diff; Complete Time: 21:31 kb 03/31 20:10 Order name: Basic Metabolic Panel; Complete Time: 21:31 kb 03/31 20:10 Order name: Vancomycin,Trough; Complete Time: 21:31 kb 03/31 23:27 Order name: CBC with Automated Diff EDMS 03/31 23:27 Order name: CBC with Automated Diff EDMS 03/31 23:27 Order name: Comprehensive Metabolic Panel EDMS 03/31 20:10 Order name: IV Start; Complete Time: 20:48 kb 03/31 23:27 Order name: CONS Pharmacy Consult EDMS 03/31 23:27 Order name: CONS Physician Consult EDMS 03/31 23:27 Order name: Regular EDMS 03/31 23:27 Order name: Comprehensive Metabolic Panel EDMS Administered Medications: 21:17 Drug: Cefepime 1 grams Route: IVPB; Rate: 200 ml/hr; Infused Over: 30 mins; Site: right kr2 forearm; 22:10 Follow up: Response: No adverse reaction; IV Status: Completed infusion kr2 22:20 Drug: vancoMYCIN 1 grams Route: IVPB; Infused Over: 2 hrs; Site: right forearm; kr2 23:46 Follow up: IV Status: Infusion continued upon admission bb 23:59 Follow up: Response: No adverse reaction; IV Status: Infusion continued upon admission kr2 Disposition: 04/01 10:55 Co-signature as Attending Physician, Krish Sandoval MD I agree with the assessment and ashley plan of care. Disposition: 03/31/18 21:09 Hospitalization ordered by Neelima Becker for Observation. Preliminary diagnosis is Abscess of bursa, elbow. - Bed requested for Telemetry/MedSurg (observation). - Status is Observation. kr2 - Condition is Stable. - Problem is an ongoing problem. - Symptoms are unchanged. UTI on Admission? No Signatures: Dispatcher [employer] EDMS Luh Reynaga, MEAGAN-C EXECUTIVE ASST-Fozia Van RN RN Ana Hanson RN Krish Chandler MD MD cha Reaves, Karey, RN RN kr2 Diane Wick RN Corrections: (The following items were deleted from the chart) 03/31 21:46 21:09 Hospitalization Ordered by Neelima Becker MD for Observation. Preliminary diagnosis is Abscess of bursa, elbow. Bed requested for Telemetry/MedSurg (observation). Status is Observation. Condition is Stable. Problem is an ongoing problem. Symptoms are unchanged. UTI on Admission? No. kb 04/01 00:00 03/31 21:46 03/31/2018 21:09 Hospitalization Ordered by Neelima Becker MD for kr2 Observation. Preliminary diagnosis is Abscess of bursa, elbow. Bed requested for Telemetry/MedSurg (observation). Status is Observation. Condition is Stable. Problem is an ongoing problem. Symptoms are unchanged. UTI on Admission? No. mw
[2018-03-31 21:28] LABS: Absolute Lymphocytes (CBC) 6.2 K/uL (0.7-4.9); Absolute Monocytes 2.5 K/uL (0.1-1.3); Absolute Neutrophil 6.9 K/uL (1.8-8.0); Basophils % 0.9 % (0-1.3); Eosinophils % 8.9 % (0-4.4); Hematocrit 36.7 % (39.6-49.0); Lymphocytes % 36.1 % (15.3-44.8); MCH 29.8 pg (27.0-35.0); MCV 89.9 fL (80-100); MPV 8.9 fL (7.6-11.3); Monocytes % 14.4 % (3.3-12.3); Potassium 3.6 mEq/L (3.6-5.0); RBC Red Blood Cell Count 4.08 M/uL (4.33-5.43)
[2018-03-31] MEDS ORDERED: VANCOMYCIN/NS 1 gm 1 GM/250 ML BAG ONE (22:13)
[2018-03-31] MEDS ORDERED: MORPHINE 2 MG/ML SYR IV PRN (23:24)
[2018-03-31] MEDS ORDERED: ONDANSETRON 4 MG/2 ML VIAL IV PRN (23:24)
[2018-03-31] MEDS ORDERED: ACETAMINOPHEN 500 MG TAB PO PRN (23:24)
[2018-04-01] MEDS ORDERED: ALPRAZOLAM 0.5 MG TABLET PO ONE (01:36)
[2018-04-01] MEDS ORDERED: CLONIDINE HCL 0.3 MG TAB PO ONE (01:37)
[2018-04-01] MEDS ORDERED: BISACODYL 10 MG RECTAL SUPP PR PRN (04:47)
[2018-04-01] MEDS ORDERED: METHOCARBAMOL 500 MG TAB PO PRN (04:47)
[2018-04-01 05:04] LABS: Absolute Lymphocytes (CBC) 7.6 K/uL (0.7-4.9); Absolute Monocytes 2.3 K/uL (0.1-1.3); Absolute Neutrophil 6.3 K/uL (1.8-8.0); Basophils % 1.4 % (0-1.3); Hematocrit 35.9 % (39.6-49.0); Lymphocytes % 42.4 % (15.3-44.8); MCH 29.9 pg (27.0-35.0); MPV 9.5 fL (7.6-11.3); Monocytes % 12.8 % (3.3-12.3); RBC Red Blood Cell Count 3.91 M/uL (4.33-5.43)
[2018-04-01 05:18] LABS: Albumin 3.2 g/dL (3.2-5.5); Bilirubin Total 0.6 mg/dL (0.3-1.2); Potassium 3.6 mEq/L (3.6-5.0); Protein, Total 6.6 g/dL (6.0-8.3)
--- NOTE | 2018-04-01 06:21 | P.HP ---
Certification for Inpatient Patient admitted to: Observation With expected LOS: <2 Midnights Patient will require the following post-hospital care: None Practitioner: I am a practitioner with admitting privileges, knowledge of patient current condition, hospital course, and medical plan of care. Services: Services provided to patient in accordance with Admission requirements found in Title 42 Section 412.3 of the Code of Federal Regulations Patient History Date of Service: 04/01/18 Reason for admission: Patient's presents to the ER because his PICC line came out accidentally History of Present Illness: Patient is a 67-year-old gentleman who has been on treatment with IV antibiotics for a septic arthritis. This was diagnosed on his admission to hospital a couple months ago. Patient has been following up with Infectious Disease. Patient came into the hospital because his PICC line came out accidentally. There is no way to schedule an out patient PICC line placement according to nursing staff so we will go ahead and admit the patient to the hospital for PICC line placement. Otherwise, patient with no new complaints. He still has pain on his left elbow. He denies fever or shakes or chills. Allergies sertraline [From Zoloft] Allergy (Verified 12/29/17 02:19) Hives/Rash Home Medications: Docusate [Colace Cap*] 100 mg PO BID 01/09/15 Bupropion HCl [Wellbutrin*] 200 mg PO BID 12/29/17 Gabapentin [Neurontin*] 1 tab PO BID 12/29/17 Metformin HCl 1 tab PO BID 12/29/17 Methocarbamol 500 mg PO TID PRN 02/10/18 Bisacodyl [Dulcolax*] 10 mg NC DAILY PRN 04/01/18 Carvedilol [Coreg*] 25 mg PO Q12H 04/01/18 Clonidine HCl [Catapres*] 0.2 mg PO Q12H 04/01/18 Famotidine [Pepcid*] 20 mg PO DAILY 04/01/18 Fluoxetine HCl [Prozac*] 40 mg PO DAILY 04/01/18 Vancomycin HCl in Dextrose 5 % [Vancomycin 1.5 Gram/250 ml-D5w] 1 gm IV DAILY - Past Medical/Surgical History Has patient received pneumonia vaccine in the past: Yes Diabetic: Yes -: HTN -: Diabetes mellitus -: psoriasis -: Septic arthritis -: cholecystectomy -: splectomy -: lumbar surgery -: left knee replacement -: 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 moist/pink, EOMI, Sclerae nonicteric Neck: Supple, 2+ carotid pulse no bruit, No LAD, Without JVD or thyroid abnormality Respiratory: Clear to auscultation bilaterally, Normal air movement Cardiovascular: Regular rate/rhythm, Normal S1 S2, No murmurs Gastrointestinal: Normal bowel sounds, Soft and benign, Non-distended, No tenderness Musculoskeletal: Erythema, Tenderness Integumentary: No rashes, No breakdown, No significant lesion Neurological: Normal gait, Normal speech, Normal strength at 5/5 x4 extr, Normal tone, Sensation intact, Cranial nerves 3-12 intact, Normal affect Lymphatics: No axilla or inguinal lymphadenopathy - Studies Laboratory Data (last 24 hrs) 03/31/18 21:06: Sodium 141, Potassium 3.6, BUN 13, Creatinine 1.21, Glucose 137 H 03/31/18 21:06: WBC 17.3 H, Hgb 12.2 L, Hct 36.7 L, Plt Count 460 H Assessment & Plan - Problems (Diagnosis) (1) Septic arthritis Current Visit: Yes Status: Acute (2) PICC (peripherally inserted central catheter) removal Current Visit: Yes Status: Acute (3) Depression Onset Date: 12/29/17 Current Visit: No Status: Chronic Qualifiers: (4) Diabetes mellitus Onset Date: 01/09/15 Current Visit: No Status: Chronic Qualifiers: (5) Hypertension Onset Date: 12/29/17 Current Visit: No Status: Chronic Qualifiers: - Plan Plan: 1. PICC line placement 2. Continue with scheduled outpatient antibiotics 3. 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 Anticipate discharge home once PICC line is placed Discharge Plan: Home Plan to discharge in: 24 Hours - Advance Directives Does patient have a Living Will: Yes Does patient have a Durable POA for Healthcare: Yes - Code Status/Comfort Care Code Status Assessed: Yes Code Status: Full Code Critical Care: No Time Spent Managing PTS Care (In Minutes): 50
--- NOTE | 2018-04-01 08:44 | P.DS ---
Admission Date: 04/01/18 Discharge Date: 04/12/18 Primary Care Provider: Dr. Hubbard; Infectious Disease-Dr. Oropeza Disposition: DC HOME/HOME HEALTH CARE Reason for Admission: Patient's presents to the ER because his PICC line came out accidentally - Problems (1) Osteomyelitis Status: Chronic Qualifiers: Laterality: left (2) PICC (peripherally inserted central catheter) removal Status: Acute (3) Septic olecranon bursitis of left elbow Status: Chronic (4) Chronic pain disorder Onset Date: 12/29/17 Status: Chronic (5) Depression Onset Date: 12/29/17 Status: Chronic Qualifiers: Depression Type: unspecified Qualified Code(s): F32.9 - Major depressive disorder, single episode, unspecified (6) Diabetes mellitus Onset Date: 01/09/15 Status: Chronic Qualifiers: Diabetes mellitus type: type 2 Diabetes mellitus senior living insulin use: without exterminator use Diabetes mellitus complication status: with other specified complication Qualified Code(s): E11.69 - Type 2 diabetes mellitus with other specified complication (7) Hypertension Onset Date: 12/29/17 Status: Chronic Qualifiers: Hypertension type: essential hypertension Qualified Code(s): I10 - Essential (primary) hypertension Brief History of Present Illness: 67-year-old male present emergency room after his PICC line had come out. Patient had been getting IV antibiotic therapy for left recurrent olecranon bursitis with osteomyelitis. The patient had been hospitalized in January and transferred to a long-term acute care facility. Thereafter the patient was sent home with IV antibiotic therapy with a PICC line. Patient is getting IV antibiotic therapy. The patient tried to have this replaced yesterday, on forcefully this cannot be done. Therefore the patient was admitted to have PICC line placed. Patient with diabetes, hypertension, depression with anxiety and chronic pain Vital Signs/Physical Exam: Temp Pulse Resp BP Pulse Ox 97.6 F 65 14 171/84 H 95 04/01/18 06:21 04/01/18 06:21 04/01/18 06:21 04/01/18 06:21 04/01/18 06:21 General: Alert, In no apparent distress, Oriented x3, Cooperative HEENT: Atraumatic, Mucous membr. moist/pink Neck: Supple, No Thyromegaly Respiratory: Clear to auscultation bilaterally, Normal air movement Cardiovascular: Normal pulses, Regular rate/rhythm Gastrointestinal: Normal bowel sounds, Soft and benign, Non-distended, No tenderness, No masses, No rebound, No guarding Musculoskeletal: No erythema, No tenderness, No warmth Integumentary: No erythema, No warmth, No cyanosis, Other (Left elbow is wrapped.) Neurological: Normal speech, Normal strength at 5/5 x4 extr, Normal tone, Normal affect Laboratory Data at Discharge: WBC 17.9 K/uL (4.3-10.9) H 04/01/18 04:26 Hgb 11.7 g/dL (13.6-17.9) L 04/01/18 04:26 Hct 35.9 % (39.6-49.0) L 04/01/18 04:26 Plt Count 453 K/uL (152-406) H 04/01/18 04:26 Sodium 140 mEq/L (135-145) 04/01/18 04:26 Potassium 3.6 mEq/L (3.6-5.0) 04/01/18 04:26 BUN 12 mg/dL (6-20) 04/01/18 04:26 Creatinine 1.09 mg/dL (0.61-1.24) 04/01/18 04:26 Glucose 133 mg/dL (65-120) H 04/01/18 04:26 Total Bilirubin 0.6 mg/dL (0.3-1.2) 04/01/18 04:26 AST 26 IU/L (10-42) 04/01/18 04:26 ALT 16 IU/L (10-60) 04/01/18 04:26 Alkaline Phosphatase 77 IU/L (42-121) 04/01/18 04:26 Home Medications: Docusate [Colace Cap*] 100 mg PO BID 01/09/15 Bupropion HCl [Wellbutrin*] 200 mg PO BID 12/29/17 Gabapentin [Neurontin*] 1 tab PO BID 12/29/17 Metformin HCl 1 tab PO BID 12/29/17 Methocarbamol 500 mg PO TID PRN 02/10/18 Bisacodyl [Dulcolax*] 10 mg NM DAILY PRN 04/01/18 Carvedilol [Coreg*] 25 mg PO Q12H 04/01/18 Clonidine HCl [Catapres*] 0.2 mg PO Q12H 04/01/18 Famotidine [Pepcid*] 20 mg PO DAILY 04/01/18 Fluoxetine HCl [Prozac*] 40 mg PO DAILY 04/01/18 Vancomycin HCl in Dextrose 5 % [Vancomycin 1.5 Gram/250 ml-D5w] 1 gm IV DAILY Alprazolam [Xanax*] 0.5 mg PO TID PRN tab 04/02/18 Bupropion HCl [Wellbutrin*] 200 mg PO BID tab 04/02/18 Carvedilol [Coreg*] 25 mg PO Q12HR tab 04/02/18 Famotidine [Pepcid*] 20 mg PO DAILY tab 04/02/18 Lisinopril [Prinivil*] 10 mg PO DAILY tab 04/02/18 Diet: ADA Activity: Fall precautions Followup: Cj Person MD [ACTIVE - CAN ADMIT] - (Contact Dr. Person's office if you are unable to make an appointment with the doctor he referred you to.) Armani Oropeza MD [ACTIVE - CAN ADMIT] - Time spent managing pt's care (in minutes): 55
[2018-04-01] MEDS: DOCUSATE NA 100 MG CAP PO SCH ×2 (09:00→20:17)
[2018-04-01] MEDS ORDERED: FLUOXETINE 10 MG CAP PO SCH (09:00)
[2018-04-01] MEDS ORDERED: METFORMIN HCL 500 MG TAB PO SCH (09:00)
[2018-04-01] MEDS: METFORMIN HCL 500 MG TAB PO SCH ×2 (09:07→17:01)
[2018-04-01] MEDS: CLONIDINE HCL 0.3 MG TAB PO SCH ×2 (09:07→17:01)
[2018-04-01] MEDS: buPROPion HCl 100 MG TAB PO SCH ×2 (09:07→20:18)
[2018-04-01] MEDS: GABAPENTIN 300 MG CAP PO SCH ×2 (09:07→20:17)
[2018-04-01] MEDS: CARVEDILOL 12.5 MG TAB PO SCH ×2 (09:07→20:17)
[2018-04-01] MEDS: FAMOTIDINE 20 MG TAB PO SCH (09:07)
[2018-04-01] MEDS: FLUOXETINE 20 MG CAP PO SCH (09:08)
[2018-04-01] MEDS ORDERED: VANCOMYCIN 1 GM in NA CHLORIDE 0.9% 500 ML IVPB SCH (17:00)
[2018-04-01] MEDS: CEFEPIME/SWI 1gm 1 GM/10 ML SYR IV SCH (17:01)
[2018-04-01] MEDS: VANCOMYCIN 1.75 GM in NA CHLORIDE 0.9% 500 ML IVPB SCH (17:01)
--- NOTE | 2018-04-01 17:40 | RAD REPORT ---
EXAM DESCRIPTION: MRI - Elbow Left Wo Cont - 04/01/2018 2:59 pm CLINICAL HISTORY: Left elbow pain and swelling COMPARISON: January 2018 TECHNIQUE: Axial, sagittal, and coronal magnetic images of the left elbow were obtained FINDINGS: Abnormal signal involves the distal ulna/olecranon measuring 4.5 centimeters. It has worse azam since the prior MRI. A soft tissue ulceration is seen dorsally. A small to moderate elbow joint effusion is seen. The musculature demonstrates normal signal. IMPRESSION: Worsening osteomyelitis involving the distal ulna
--- NOTE | 2018-04-01 18:03 | P.PN ---
Subjective Date of Service: 04/01/18 Primary Care Provider: Dr. Hubbard; Infectious Disease-Dr. Oropeza Chief Complaint: Patient's presents to the ER because his PICC line came out accidentally Subjective: Doing well Physical Examination - Vital Signs Temperature: 97.9 F Blood Pressure: 167/89 Pulse: 59 Respirations: 17 Pulse Ox (%): 97 - Physical Exam General: Alert, In no apparent distress, Oriented x3, Cooperative HEENT: Atraumatic Neck: Supple Respiratory: Clear to auscultation bilaterally, Normal air movement Cardiovascular: Normal pulses, Regular rate/rhythm Gastrointestinal: Normal bowel sounds, Soft and benign, Non-distended Musculoskeletal: Other (Left arm bandaged) Neurological: Normal speech, Normal strength at 5/5 x4 extr, Normal tone - Studies Laboratory Data (last 24 hrs) 03/31/18 21:06: Sodium 141, Potassium 3.6, BUN 13, Creatinine 1.21, Glucose 137 H 03/31/18 21:06: WBC 17.3 H, Hgb 12.2 L, Hct 36.7 L, Plt Count 460 H Assessment & Plan - Problems (Diagnosis) (1) Osteomyelitis Current Visit: Yes Status: Chronic Plan: MRI reviewed with radiology. Worsening osteomyelitis noted. Case discussed with infectious disease. Patient currently on IV antibiotic therapy. Will continue with current medications. Will discuss case with orthopedics as the patient may require surgical intervention. Orthopedics is to reassess him tomorrow. I will have the nurses try to do the PICC line in the right arm. If not successful the patient may require Port-A- Cath by surgery. Qualifiers: Laterality: left (2) PICC (peripherally inserted central catheter) removal Current Visit: Yes Status: Acute Plan: Nurses will try putting a PICC line for continued IV antibiotic therapy. (3) Septic olecranon bursitis of left elbow Current Visit: No Status: Chronic Plan: Continue as above. Orthopedics to evaluate patient tomorrow. Await recommendation. Will continue current IV antibiotic therapy. Await to see if Infectious Disease once to change antibiotic therapy. Will recheck blood cultures and wound cultures. (4) Chronic pain disorder Onset Date: 12/29/17 Current Visit: No Status: Chronic Plan: Will continue with pain control medication. (5) Depression Onset Date: 12/29/17 Current Visit: No Status: Chronic Plan: Continue with medication. Qualifiers: Depression Type: unspecified Qualified Code(s): F32.9 - Major depressive disorder, single episode, unspecified (6) Diabetes mellitus Onset Date: 01/09/15 Current Visit: No Status: Chronic Plan: Will check A1c. Will continue with medication. Qualifiers: Diabetes mellitus type: type 2 Diabetes mellitus long-term insulin use: without long-term use Diabetes mellitus complication status: with other specified complication Qualified Code(s): E11.69 - Type 2 diabetes mellitus with other specified complication (7) Hypertension Onset Date: 12/29/17 Current Visit: No Status: Chronic Plan: Continue with medication. May need adjustment in medication. Qualifiers: Hypertension type: essential hypertension Qualified Code(s): I10 - Essential (primary) hypertension Discharge Plan: Other (Long-term acute care facility verses skilled placement verses other) Plan to discharge in: Greater than 2 days Time Spent Managing Pts Care (In Minutes): 55
[2018-04-01] MEDS ORDERED: GLUCAGON 1 MG/VIAL IM PRN (18:11)
[2018-04-01] MEDS ORDERED: D50W 25 GM/50 ML SYRINGE IV PRN (18:11)
[2018-04-01] MEDS: Morphine 2 MG/2 ML SYR IV PRN (20:27)
[2018-04-01] MEDS: INSULIN -REGULAR HUMAN 50 UNIT/0.5 ML ML SQ SCH (20:32)
[2018-04-01] MEDS ORDERED: CEFEPIME 1 GM/VIAL IV SCH (21:00)
--- NOTE | 2018-04-01 23:39 | CON ---
History Of Present Illness: The patient is a 67-year-old male, who was admitted yesterday because a PICC line which was inserted for IV antibiotic as the patient had left elbow abscess and possible ost eomyelitis, was getting vancomycin and cefepime. The patient denies any problems with the medication at this time. Denies any other problems except occasional nausea when he gets vancomycin for which he takes Zofran. The patient denies any other challenges. 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 Social History: Tobacco, positive in the past. Alcohol negative. Family History: Noncontributory. Medications: Vancomycin, cefepime. See MARs for other medication. Allergies: SERTRALINE. Review of Systems: A 10-point review was performed. Physical Examination: General: This is a 67-year-old male, sitting up in bed, not in any acute cardiopulmonary distress. Vital Signs: Temperature 97.5, pulse 55, respiration 18, blood pressure 150/74. HEENT: Unremarkable. Neck: Supple. Lungs: Basal crackles. Heart: S1, S2. Regular. Abdomen: Soft, nontender. Bowel sounds positive. Extremity: No edema. Left elbow with erythematous changes and open wound site with good granulation tissue. Laboratory Data: Shows WBC 29403, hemoglobin 11.7, platelets 453. Chemistry shows sodium 140, potas sium 3.6, chloride 110, bicarb 24, BUN 12, creatinine 1.09, glucose is 133, albumin is 3.2. MRI resu lts are pending. Assessment And Plan: Left elbow abscesses, status post I and D. We will continue antibiotic and sup portive care. Possible PICC line in the left arm if infection has not infiltrated the upper extremit y, also possibility of starting the patient on oral antibiotics, apply silver alginate to the left el bow or Medihoney with Alginate. Continue wound care and supportive care. Keep arm elevated. We jennifer l follow the patient as needed. NF/MODL Voice ID: [id number] Report ID: [id number]
[2018-04-02] MEDS: CLONIDINE HCL 0.3 MG TAB PO SCH ×3 (00:06→16:59)
[2018-04-02] MEDS: ALPRAZOLAM 0.5 MG TABLET PO PRN ×2 (00:07→08:49)
[2018-04-02 00:54] VITALS: O2SAT 98
[2018-04-02 04:58] VITALS: BMI 29.9
[2018-04-02 05:14] LABS: Absolute Lymphocytes (CBC) 6.2 K/uL (0.7-4.9); Absolute Monocytes 2.1 K/uL (0.1-1.3); Absolute Neutrophil 5.7 K/uL (1.8-8.0); Basophils % 1.4 % (0-1.3); Eosinophils % 9.1 % (0-4.4); Hematocrit 33.7 % (39.6-49.0); Lymphocytes % 39.6 % (15.3-44.8); MCH 29.5 pg (27.0-35.0); MPV 9.5 fL (7.6-11.3); Monocytes % 13.4 % (3.3-12.3); RBC Red Blood Cell Count 3.66 M/uL (4.33-5.43)
[2018-04-02] MEDS: CEFEPIME/SWI 1gm 1 GM/10 ML SYR IV SCH (05:25)
[2018-04-02 05:27] LABS: Potassium 3.9 mEq/L (3.6-5.0)
[2018-04-02 05:31] LABS: Magnesium 1.4 mg/dL (1.8-2.5)
[2018-04-02] MEDS ORDERED: Magnesium Sulfate 2gm IVPB 2 G/50 ML BAG IV ONE (07:00)
[2018-04-02] MEDS: INSULIN -REGULAR HUMAN 50 UNIT/0.5 ML ML SQ SCH ×3 (07:30→16:30)
--- NOTE | 2018-04-02 08:12 | RAD REPORT ---
EXAM DESCRIPTION: RAD - Chest Single View - 04/02/2018 3:20 am CLINICAL HISTORY: PICC line placement A preliminary report was provided at the time of the study. COMPARISON: February 12 FINDINGS: Portable chest was obtained following placement of a right upper extremity PICC line. The catheter tip is in the superior SVC.
[2018-04-02] MEDS: METFORMIN HCL 500 MG TAB PO SCH ×2 (08:47→16:59)
[2018-04-02] MEDS: FAMOTIDINE 20 MG TAB PO SCH (08:48)
[2018-04-02] MEDS: buPROPion HCl 100 MG TAB PO SCH (08:48)
[2018-04-02] MEDS: FLUOXETINE 20 MG CAP PO SCH (08:48)
[2018-04-02] MEDS: DOCUSATE NA 100 MG CAP PO SCH (08:48)
[2018-04-02] MEDS: GABAPENTIN 300 MG CAP PO SCH (08:48)
[2018-04-02] MEDS: CARVEDILOL 12.5 MG TAB PO SCH (08:48)
[2018-04-02 08:52] LABS: A1c Component 0.51 mg/dL; Hemoglobin A1c 6.4 % (4-6.0)
[2018-04-02] MEDS ORDERED: LISINOPRIL 10 MG TAB PO SCH (09:00)
[2018-04-02] MEDS: Morphine 2 MG/2 ML SYR IV PRN (12:18)
[2018-04-02 12:42] VITALS: BP 156/74; TEMP 97.5
[2018-04-02] MEDS: VANCOMYCIN 1.75 GM in NA CHLORIDE 0.9% 500 ML IVPB SCH (16:59)
--- NOTE | 2018-04-02 17:04 | PN ---
Date of Progress Note: 04/02/2018 Subjective: The patient currently is lying in bed. He looks comfortable. He is eating a sandwich. No issues overnight. No fever, no chills. No chest pain or abdominal pain. Objective: Vital Signs: Blood pressure is 169/87, respiratory rate 18, pulse 60, temperature 97.3. General: He is fully alert, oriented x3. Does not look in any distress. HEENT: Atraumatic, normocephalic. PERRLA. Oral mucosa is moist. Neck: Supple. No JVD. No carotid bruits. Chest: Clear to auscultation. Good air entry. Heart: Regular rate and rhythm. S1, S2 normal. No gallop or murmur. Abdomen: Soft, nontender. No masses. No hepatosplenomegaly. Positive bowel sounds. Extremities: No clubbing, cyanosis, or edema. Left elbow with white bandage. Neuro: Grossly intact. Cranial nerve exam 2 through 12 intact. Normal sensation. Normal reflexes. Normal muscle strength. Laboratory Data: Currently CBC with white blood cell 15.7, hemoglobin 10.8, platelets 461. Chemistr y within normal except for a glucose 125, magnesium 1.4. Elbow MRI showed worsening of osteomyelitis in the distal ulna. Assessment And Plan: 1.Osteomyelitis of the elbow with worsening in the left ulna noted on MRI. Infectious Disease consu lt appreciated. The patient to continue on IV antibiotics as before, no change. Orthopedic consult requested to see if the patient will need debridement or surgical eval. PICC line was replaced. 2.History of depression and anxiety. Continue patient on Xanax and Prozac. 3.Diabetes mellitus, well controlled. Continue patient on metformin and insulin sliding scale. 4.Hypertension. Continue the patient on lisinopril. 5.We will hold off DVT prophylaxis in case patient will go to have surgery. 6.Hypomagnesemia, replaced with IV magnesium, repeat in a.m. The patient on magnesium protocol. 7.Wound care consult to follow the patient. MARI/ALMA Voice ID: [id number] Report ID: [id number]
--- NOTE | 2018-04-03 11:01 | CON ---
I see Mr. Leon in the past. He initially was brought to my attention quite sometime ago where he had a septic olecranon bursa with sepsis and was taken more or less immediately to the operating room at that time for irrigation and debridement. He underwent irrigation and debridement x2. The skin was closed and there were found to be no further signs of infection. He then was placed in the LTAC and at the LTAC sutures were removed. Essentially, the wound then became open and it was quite somet kirt before he presented back to my office. When he did, he arrived with an open wound that was probi ng to the ulna. He was admitted to the hospital after seeing me in my office for additional procedur es. At that time, there was an MRI which demonstrated probable osteomyelitis of the elbow. There wa s no cortical disruption of the elbow during the operations, which entailed another 2 irrigations and debridement with wound closure. He was again discharged with IV antibiotics and now arrived back to [facility] with very thin skin over the olecranon as well as some granulation tissue with 2 small op en areas. The actual incision has healed, but there are 2 areas which may be consistent with perhaps sinus. He had an MRI which demonstrates probable osteomyelitis of the proximal ulna without obvious cortical disruption. There was no abscess or pus under pressure. He has full painless range of mot ion of his elbow and essentially did not have any pain. He does have some serosanguinous drainage fr om his elbow. Otherwise, he does have a slightly high white count, but he does not feel systemically ill. Assessment: It is very difficult to manage the patient now with probable osteomyelitis of the elbow. Discussed with him that he has seen Dr. Black Alexander in the past, who is an expert in reconstructiv e issues of the elbow. He also has other resources such as plastic surgery or further diagnostic met hods. At this time, I encouraged to perhaps make an appointment to see Dr. Alexander. Otherwise, we continue IV antibiotics and local woun d care. /ALMA Voice ID: [id number] Report ID: [id number]
--- NOTE | 2018-04-03 13:01 | DS ---
Date of Discharge: 04/02/2018 Discharge Diagnoses: 1.Osteomyelitis of the left arm, peripherally inserted central catheter line replacement. 2.Chronic pain disorder. 3.Depression. 4.Diabetes mellitus. 5.Hypertension. 6.Septic olecranon bursitis of the left elbow. 7.Diabetes. 8.Hypertension. Consult: 1.Armani Oropeza M.D., from [place]. 2.Consult Orthopedic. History Of Present Illness: Please refer to Dr. Greene' admit note. Hospital Course: The patient was admitted because of his PICC line came out. He was getting IV anti biotic for his left recurrent olecranon bursitis with osteomyelitis at home. New PICC line placed. MRI was ordered and MRI showed worsening of his osteomyelitis. Orthopedic consult requested and Dr. Person seen the patient and he advised that the patient needs surgical evaluation by Dr. Schwartz in [place]. The patient was already seen by Dr. Schwartz and he will contact him on Wednesday to arrange for evaluation in [place]. The patient was advised if he have any difficulty call Dr. Person to help him setting an appointment. In terms of his other medical problems, for his diabetes, the patient wa s continued on his metformin 500 mg twice a day. For his hypertension, he was continued on his coreg and clonidine. For his depression and anxiety, he was continued on Wellbutrin and for his neuropath y he was continued on gabapentin. He was discharged today in stable condition to follow up with [facility] physician in 1 week. He will need to follow up with Dr. Schwartz in [place], follow up with Dr Ryan Person as advised. Discharge Activity: As tolerated. Discharge Diet: Cardiac/1800 diabetic. Discharge Physical Examination: General: The patient is alert and oriented x3. Does not look in an y distress. HEENT: Atraumatic, normocephalic. PERRLA. Oral mucosa is moist. Neck: Supple. No JVD. No carotid bruits. Chest: Clear to auscultation. Good air entry. Heart: Regular rate and rhythm. S1 and S2 normal. No gallop or murmur. Abdomen: Soft. No masses. No hepatosplenomegaly. Positive bowel sounds. Extremities: No clubbing, cyanosis, or edema. No calf tenderness. The patient's left elbow in dres sing. Neurologic: Grossly intact. Vital Signs: At discharge, blood pressure 156/74, respiratory rate 17, pulse 66, temperature 97.5. Discharge Medications: Xanax 0.5 mg t.i.d. p.r.n. as needed, Dulcolax 10 mg daily as needed, Wellbut rin 200 mg twice a day, Coreg 25 mg twice a day, clonidine 0.2 mg twice a day, Colace 100 mg twice a day, famotidine 20 mg once a day, fluoxetine 40 mg once a day, gabapentin 300 mg b.i.d., lisinopril 1 0 mg only once a day, metformin 500 mg twice a day, methocarbamol 500 mg 3 times a day, vancomycin 1. 5 g IV once a day for [address] Oropeza's instruction. The patient need to continue followup with Wound Care. WEI Voice ID: [id number] Report ID: [id number]
== END 2018-04-02 16:15 | disposition home health service (06) | DRG 558 ==
LOC: ER 18:56 → ERHOLD 23:31 → 2ND 23:43 → OBSVTOIN 04-01 20:06
PROVIDERS: ADMIT Internal Medicine; ATTEND Family Medicine
PROC: 02HV33Z Insertion of Infusion Device into Superior Vena Cava, Percutaneous Approach (ICD-10-PCS; principal; 2018-04-02)
DX: M70.22 Olecranon bursitis, left elbow (principal); M86.68 Other chronic osteomyelitis, other site; L02.414 Cutaneous abscess of left upper limb; I10 Essential (primary) hypertension; F32.9 Major depressive disorder, single episode, unspecified; G89.4 Chronic pain syndrome; E11.69 Type 2 diabetes mellitus with other specified complication; E11.40 Type 2 diabetes mellitus with diabetic neuropathy, unspecified; E83.42 Hypomagnesemia; Z87.891 Personal history of nicotine dependence
CPT/HCPCS: 36415; 71045; 80048; 80053; 80202; 82962; 83036; 83735; 85025; 87070; 87205; 96365; 96367; 99285; G0378; J0692; J2270; J3370; J3475

== ENCOUNTER 2018-09-30 10:35 | Inpatient (IN) | payer OTHER ==
[2018-09-30] MEDS ORDERED: MORPHINE 4 MG/ML SYR ONE ×4 (11:28→14:39)
[2018-09-30] MEDS ORDERED: NA CHLORIDE 0.9% 1,000 ML ONE ×2 (11:28→14:15)
[2018-09-30] MEDS ORDERED: ONDANSETRON 4 MG/2 ML VIAL ONE ×2 (11:28→14:02)
[2018-09-30 12:18] LABS: Absolute Lymphocytes (CBC) 1.7 K/uL (0.7-4.9); Absolute Monocytes 1.4 K/uL (0.1-1.3); Absolute Neutrophil 17.3 K/uL (1.8-8.0); Basophils % 0.2 % (0-1.3); Hematocrit 40.1 % (39.6-49.0); Lymphocytes % 8.2 % (15.3-44.8); MCH 30.8 pg (27.0-35.0); MCV 91.6 fL (80-100); MPV 9.2 fL (7.6-11.3); Monocytes % 6.9 % (3.3-12.3); RBC Red Blood Cell Count 4.37 M/uL (4.33-5.43)
[2018-09-30 12:40] LABS: Albumin 3.6 g/dL (3.4-5.0); Bilirubin Direct 0.2 mg/dL (0-0.2); Bilirubin Total 0.7 mg/dL (0.2-1.0); Potassium 4.6 mmol/L (3.5-5.1)
[2018-09-30 13:03] LABS: Blood Morphology Comment NOT SEEN (NOT SEEN); Platelet Estimate INCR
[2018-09-30 13:18] LABS: Urine Bacteria <20 /HPF (NONE SEEN); Urine Culture Reflex Order NOT NEEDED; Urine RBC <5 /HPF (NONE SEEN)
--- NOTE | 2018-09-30 13:49 | RAD REPORT ---
EXAM DESCRIPTION: CT - Abdomen Pelvis W Contrast - 09/30/2018 1:07 pm CLINICAL HISTORY: Abdominal pain with vomiting. Upper abdominal pain COMPARISON: January 2018 TECHNIQUE: Computed axial tomography of the abdomen pelvis was obtained. 100 cc Isovue-300 was admin istered intravenously. Oral contrast was not requested which limits evaluation of bowel. All CT scans are performed using dose optimization technique as appropriate and may include automated exposure control or mA/KV adjustment according to patient size. FINDINGS: A mild fatty infiltration liver is present. The spleen is absent. Diverticulum stems from the posterior gastric fundus. Moderate dilatation of the jejunum is present. The ileum is decompressed. Postsurgical changes involv e the bowel. The pancreas is atrophic. An adrenal mass is not seen. Gallbladder has been removed. Us small renal c ysts are present. Postsurgical changes involve lumbar spine There is no evidence of diverticulitis. IMPRESSION: Small bowel obstruction
--- NOTE | 2018-09-30 14:31 | ER ---
Nurse's Notes [facility] Name: Anish Leon Age: 68 yrs Sex: Male : 1950 Arrival Date: 09/30/2018 Time: 10:38 Bed 18 Private MD: Sonny Moncada T Diagnosis: Other intestinal obstruction-Small bowel obstruction Presentation: 09/30 10:48 Presenting complaint: Patient states: Upper abdominal pain and vomiting since last aj night. Patient reports pain is similar to last episode of pancreatitis. Transition of care: patient was not received from another setting of care. Onset of symptoms was September 29, 2018. Risk Assessment: Do you want to hurt yourself or someone else? Patient reports no desire to harm self or others. Initial Sepsis Screen: Does the patient meet any 2 criteria? No. Patient's initial sepsis screen is negative. Does the patient have a suspected source of infection? No. Patient's initial sepsis screen is negative. Care prior to arrival: None. 10:48 Method Of Arrival: Wheelchair aj 10:48 Acuity: DESHAWN 3 aj Triage Assessment: 10:52 General: Appears in no apparent distress. uncomfortable, Behavior is anxious. Pain: aj Complains of pain in right upper quadrant and left upper quadrant. Neuro: Level of Consciousness is awake, alert, obeys commands, Oriented to person, place, time, situation, Appropriate for age. Respiratory: Airway is patent Respiratory effort is even, unlabored, Respiratory pattern is regular, symmetrical. GI: Abdomen is obese. GI: Reports upper abdominal pain, nausea, vomiting. Derm: Skin is intact, is healthy with good turgor, Skin is pink, warm \T\ dry. normal. Historical: - Allergies: 10:52 Zoloft; aj - Home Meds: 10:52 Flomax 0.4 mg Oral cp24 1 cap once daily [Active]; gabapentin 300 mg Oral cap 1 cap 3 aj times per day [Active]; metformin 500 mg Oral tab 1 tab 2 times per day [Active]; carvedilol 12.5 mg oral tab 1 tab 2 times per day [Active]; Stool Softener oral oral [Active]; Belbuca buccal buccal [Active]; amlodipine 10 mg tab 1 tab once daily [Active]; aspirin 81 mg Oral chew 1 tab once daily [Active]; cyclobenzaprine 10 mg Oral tab 1 tab 3 times per day [Active]; gabapentin 300 mg oral cap 1 cap 3 times per day [Active]; Trintellix 10 mg oral tab 1 tab once daily [Active]; irbesartan 300 mg oral tab 1 tab once daily [Active]; - PMHx: 10:52 Diabetes - NIDDM; Hypertension; neuron pain; prostate problems; Pancreatitis; aj - PSHx: 10:52 right knee amputation; Cholecystectomy; Appendectomy; splenectomy; aj - Immunization history:: Adult Immunizations up to date. - Social history:: Smoking status: Patient/guardian denies using tobacco. - Ebola Screening: : Patient negative for fever greater than or equal to 101.5 degrees Fahrenheit, and additional compatible Ebola Virus Disease symptoms Patient denies exposure to infectious person Patient denies travel to an Ebola-affected area in the 21 days before illness onset No symptoms or risks identified at this time. Screenin:20 Abuse screen: Denies threats or abuse. Nutritional screening: No deficits noted. em Tuberculosis screening: No symptoms or risk factors identified. Fall Risk None identified. Assessment: 11:20 General: Appears in no apparent distress. uncomfortable, Behavior is cooperative, em restless, Denies fever. Pain: Complains of pain in abdomen Pain currently is 10 out of 10 on a pain scale. Cardiovascular: Capillary refill < 3 seconds. Respiratory: Airway is patent Respiratory effort is even, unlabored, Respiratory pattern is regular, symmetrical. GI: Abdomen is round non-distended, Bowel sounds present X 4 quads. Abd is soft X 4 quads Abdomen is tender to palpation X 4 quads. : No signs and/or symptoms were reported regarding the genitourinary system. EENT: No signs and/or symptoms were reported regarding the EENT system. Derm: Skin is intact, Skin is pink, warm \T\ dry. 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 11:30 General: The previous assessment is accurate, call light remains within reach. ss 12:00 Reassessment: Patient appears in no apparent distress at this time. Patient and/or em family updated on plan of care and expected duration. Pain level reassessed. Patient is alert, oriented x 3, equal unlabored respirations, skin warm/dry/pink. 13:00 Reassessment: Patient appears in no apparent distress at this time. Patient and/or em family updated on plan of care and expected duration. Pain level reassessed. Patient is alert, oriented x 3, equal unlabored respirations, skin warm/dry/pink. reports pain, provider notified, new medication orders received. 13:24 Reassessment: Patient appears in no apparent distress at this time. Patient and/or em family updated on plan of care and expected duration. Pain level reassessed. Patient is alert, oriented x 3, equal unlabored respirations, skin warm/dry/pink. Patient states feeling better. Patient states symptoms have improved. 14:00 Reassessment: Patient appears in no apparent distress at this time. Patient and/or em family updated on plan of care and expected duration. Pain level reassessed. Patient is alert, oriented x 3, equal unlabored respirations, skin warm/dry/pink. IV infiltrated, D/C IV, warm compress placed on RAC, provider notified. 14:57 Reassessment: Patient appears in no apparent distress at this time. Patient and/or em family updated on plan of care and expected duration. Pain level reassessed. Patient is alert, oriented x 3, equal unlabored respirations, skin warm/dry/pink. NG tube inserted, suctioned 500 mL gastric content. 16:14 Reassessment: Patient appears in no apparent distress at this time. Patient and/or em family updated on plan of care and expected duration. Pain level reassessed. Patient is alert, oriented x 3, equal unlabored respirations, skin warm/dry/pink. 17:36 Reassessment: Patient appears in no apparent distress at this time. Patient and/or em family updated on plan of care and expected duration. Pain level reassessed. Patient is alert, oriented x 3, equal unlabored respirations, skin warm/dry/pink. pending room assignment. 18:46 Reassessment: Patient appears in no apparent distress at this time. Patient and/or em family updated on plan of care and expected duration. Pain level reassessed. Patient is alert, oriented x 3, equal unlabored respirations, skin warm/dry/pink. Patient denies pain at this time. Patient states symptoms have improved. 19:32 Reassessment: Patient appears in no apparent distress at this time. Patient and/or jb4 family updated on plan of care and expected duration. Pain level reassessed. Patient is alert, oriented x 3, equal unlabored respirations, skin warm/dry/pink. Vital Signs: 10:52 BP 130 / 89; Pulse 121; Resp 20; Temp 98.0; Pulse Ox 97% on R/A; Weight 113.4 kg; aj Height 6 ft. 0 in. (182.88 cm); 11:21 BP 123 / 88; Pulse 110; Resp 18; Pulse Ox 96% on R/A; Pain 0/10; em 12:40 BP 140 / 92; Pulse 103; Resp 18; Pulse Ox 97% on R/A; Pain 0/10; em 13:20 BP 155 / 135; Pulse 100; Resp 20; Pulse Ox 100% on R/A; mh5 14:02 BP 132 / 84; Pulse 104; Resp 20; Pulse Ox 100% on R/A; mh5 15:15 BP 117 / 76; Pulse 109; Resp 20; Pulse Ox 95% on R/A; mh5 16:00 BP 118 / 68; Pulse 108; Resp 19; Pulse Ox 99% on R/A; em 17:00 BP 114 / 75; Pulse 103; Resp 20; Pulse Ox 100% on R/A; Pain 0/10; em 18:00 BP 132 / 79; Pulse 102; Resp 19; Pulse Ox 100% on R/A; Pain 0/10; em 19:15 BP 129 / 89; Pulse 103; Resp 16; Pulse Ox 97% on R/A; jb4 10:52 Body Mass Index 33.91 (113.40 kg, 182.88 cm) aj ED Course: 10:38 Patient arrived in ED. mr 10:38 Sonny Moncada MD is Private Physician. mr 10:49 Triage completed. aj 10:52 Arm band placed on right wrist. Patient placed in an exam room. aj 10:56 Lj Weir NP is PHCP. pm1 10:56 Krish Sandoval MD is Attending Physician. pm1 11:08 Eric Blanton LVN is Primary Nurse. em 11:20 Patient has correct armband on for positive identification. Placed in gown. Bed in low em position. Call light in reach. Adult w/ patient. 12:00 Accessed peripheral vein via ultrasound, utilizing dynamic ultrasound technique Blood em collected. done by SOLANGE Noland using 18G Sureflo IV catheter ,sterile technique, per hospital protocol. Clean \T\ dry. Dressing intact. Good blood return. Flushes easily. 13:03 Urine collected: clean catch specimen, samir colored. [facility] 13:04 Urine Microscopic Only Sent. [facility] 13:08 CT Abd/Pelvis - W/Contrast: PO and IV contrast In Process Unspecified. EDMS 13:09 CT completed. Patient tolerated procedure well. Patient moved to CT via stretcher. vr Patient moved back from [place]. 14:28 Augie Soler MD is Hospitalizing Provider. pm1 14:56 NGT: inserted 14 Fr. via right nare. verified placement of air over stomach, verified em return of gastric contents, to intermittent suction. Returned gastric contents. Patient tolerated well. 15:24 Abdomen Single View In Process Unspecified. EDMS 20:05 No provider procedures requiring assistance completed. Patient admitted, IV remains in jb4 place. 20:10 Primary Nurse role handed off by Eric Blanton LVN jb4 20:10 Win Lu, AMANDO is Primary Nurse. jb4 Administered Medications: 12:04 Drug: NS 0.9% 1000 ml Route: IV; Rate: 1000 ml; Site: right antecubital; em 12:53 Follow up: IV Status: Completed infusion; IV Intake: 1000ml em 12:04 Drug: Zofran 4 mg Route: IVP; Site: right antecubital; ss 12:55 Follow up: Response: No adverse reaction; Nausea is decreased em 12:34 Drug: morphine 4 mg Route: IVP; Site: right antecubital; ss 12:40 Follow up: Response: No adverse reaction; Pain is decreased em 12:59 Drug: morphine 4 mg Route: IVP; Site: right antecubital; em 13:30 Follow up: Response: No adverse reaction; Pain is decreased em 14:03 Drug: morphine 4 mg Route: IVP; Site: right antecubital; em 14:54 Follow up: Response: No adverse reaction em 14:04 Drug: Zofran 4 mg Route: IVP; Site: right antecubital; em 14:55 Follow up: Response: No adverse reaction; Nausea is decreased em 14:24 Drug: NS 0.9% 1000 ml Route: IV; Rate: 100 ml/hr; Site: right jugular; em 16:52 Follow up: IV Status: Infusion continued upon admission; IV Intake: 150ml em 15:30 Drug: morphine 2 mg Route: IVP; Site: right jugular; em 16:37 Follow up: Response: No adverse reaction; Pain is decreased em 17:05 Drug: morphine 2 mg Route: IVP; Site: right jugular; em 17:18 Follow up: Response: No adverse reaction; Pain is decreased em 19:18 Drug: Phenergan 12.5 mg Route: IVP; Site: right jugular; jb4 20:05 Follow up: Response: No adverse reaction; Nausea is decreased jb4 Intake: 12:53 IV: 1000ml; Total: 1000ml. em 16:52 IV: 150ml; Total: 1150ml. em Output: 15:42 Gastric: 1300ml (NGT); Total: 1300ml. em 18:00 Gastric: 500ml (NGT); Total: 1800ml. em Outcome: 14:30 Decision to Hospitalize by Provider. pm1 20:05 Admitted to Med/surg accompanied by tech, via stretcher, room 230, with chart. jb4 20:05 Condition: stable 20:05 Instructed on the need for admit, Demonstrated understanding of instructions. 20:10 Patient left the ED. jb4 Signatures: Dispatcher [employer] EDMS Ana White, RN Nadja Thayer Edgar, ASPHALT HEATER TENDER ASPHALT HEATER TENDER Ann Sultana, Geri Camacho RN, Patrick, DEPARTMENT CHAIR DEPARTMENT CHAIR pm1 Win Lu RN RN jb4 Martinez, Maria [facility] Corrections: (The following items were deleted from the chart) 15:07 14:57 Reassessment: Patient appears in no apparent distress at this time. Patient em and/or family updated on plan of care and expected duration. Pain level reassessed. Patient is alert, oriented x 3, equal unlabored respirations, skin warm/dry/pink. NG tube inserted, suctioned 500 mL em
--- NOTE | 2018-09-30 14:31 | EDPHYS ---
Physician Documentation [facility] Name: Anish Leon Age: 68 yrs Sex: Male : 1950 Arrival Date: 09/30/2018 Time: 10:38 Bed 18 Private MD: Sonny Moncada T ED Physician Krish Sandoval HPI: 09/30 12:00 This 68 yrs old Male presents to ER via Wheelchair with complaints of pm1 Abdominal Pain, Vomiting/Diarrhea. 12:00 The patient presents with abdominal pain in the upper abdomen. Onset: The pm1 symptoms/episode began/occurred last night. The symptoms do not radiate. Associated signs and symptoms: Pertinent positives: Diarrhea x 2 and multiple episodes of vomiting, Pertinent negatives: chest pain, constipation, fever, shortness of breath, testicular pain. The symptoms are described as achy. Modifying factors: The symptoms are alleviated by nothing, the symptoms are aggravated by nothing. Severity of pain: in the emergency department the pain is actually worse. The patient has experienced similar episodes in the past, Feels like it is his pancreatitis he has had in the past. Has had two small bowel obstruction in the past that have resolved with medical managment. The patient has not recently seen a physician, the patient's primary care provider is Dr. Moncada. 1999 bowel resection for diverticulitis. 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 Two separate surgeries - appendectomy and cholecystectomy. 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 Historical: - Allergies: 10:52 Zoloft; aj - Home Meds: 10:52 Flomax 0.4 mg Oral cp24 1 cap once daily [Active]; gabapentin 300 mg Oral cap 1 cap 3 aj times per day [Active]; metformin 500 mg Oral tab 1 tab 2 times per day [Active]; carvedilol 12.5 mg oral tab 1 tab 2 times per day [Active]; Stool Softener oral oral [Active]; Belbuca buccal buccal [Active]; amlodipine 10 mg tab 1 tab once daily [Active]; aspirin 81 mg Oral chew 1 tab once daily [Active]; cyclobenzaprine 10 mg Oral tab 1 tab 3 times per day [Active]; gabapentin 300 mg oral cap 1 cap 3 times per day [Active]; Trintellix 10 mg oral tab 1 tab once daily [Active]; irbesartan 300 mg oral tab 1 tab once daily [Active]; - PMHx: 10:52 Diabetes - NIDDM; Hypertension; neuron pain; prostate problems; Pancreatitis; aj - PSHx: 10:52 right knee amputation; Cholecystectomy; Appendectomy; splenectomy; aj - Immunization history:: Adult Immunizations up to date. - Social history:: Smoking status: Patient/guardian denies using tobacco. - Ebola Screening: : Patient negative for fever greater than or equal to 101.5 degrees Fahrenheit, and additional compatible Ebola Virus Disease symptoms Patient denies exposure to infectious person Patient denies travel to an Ebola-affected area in the 21 days before illness onset No symptoms or risks identified at this time. ROS: 12:00 Constitutional: Negative for fever, chills, and weight loss, Eyes: Negative for injury, pm1 pain, redness, and discharge, ENT: Negative for injury, pain, and discharge, Neck: Negative for injury, pain, and swelling, Cardiovascular: Negative for chest pain, palpitations, and edema, Respiratory: Negative for shortness of breath, cough, wheezing, and pleuritic chest pain. 12:00 Back: Negative for injury and pain, : Negative for injury, bleeding, discharge, and swelling, MS/Extremity: Negative for injury and deformity, Skin: Negative for injury, rash, and discoloration, Neuro: Negative for headache, weakness, numbness, tingling, and seizure. 12:00 Abdomen/GI: Positive for abdominal pain, nausea, vomiting, and diarrhea, Negative for hematemesis, black/tarry stool, rectal bleeding. Exam: 12:00 Constitutional: This is a well developed, well nourished patient who is awake, alert, pm1 and in no acute distress. Head/Face: Normocephalic, atraumatic. Eyes: Pupils equal round and reactive to light, extra-ocular motions intact. Lids and lashes normal. Conjunctiva and sclera are non-icteric and not injected. Cornea within normal limits. Periorbital areas with no swelling, redness, or edema. ENT: Nares patent. No nasal discharge, no septal abnormalities noted. Tympanic membranes are normal and external auditory canals are clear. Oropharynx with no redness, swelling, or masses, exudates, or evidence of obstruction, uvula midline. Mucous membranes moist. Neck: Trachea midline, no thyromegaly or masses palpated, and no cervical lymphadenopathy. Supple, full range of motion without nuchal rigidity, or vertebral point tenderness. No Meningismus. Chest/axilla: Normal chest wall appearance and motion. Nontender with no deformity. No lesions are appreciated. Cardiovascular: Regular rate and rhythm with a normal S1 and S2. No gallops, murmurs, or rubs. Normal PMI, no JVD. No pulse deficits. Respiratory: Lungs have equal breath sounds bilaterally, clear to auscultation and percussion. No rales, rhonchi or wheezes noted. No increased work of breathing, no retractions or nasal flaring. 12:00 Back: No spinal tenderness. No costovertebral tenderness. Full range of motion. Skin: Warm, dry with normal turgor. Normal color with no rashes, no lesions, and no evidence of cellulitis. MS/ Extremity: Pulses equal, no cyanosis. Neurovascular intact. Full, normal range of motion. 12:00 Abdomen/GI: Inspection: scar(s), Large up pointing arrow shaped scar on upper abdominal area, Bowel sounds: normal, in all quadrants, Palpation: soft, moderate abdominal tenderness, in the mid upper quadrant just above umbilicus, mass, is not appreciated, rebound tenderness, is not appreciated. 12:00 Neuro: Orientation: is normal, Motor: is normal, moves all fours. Vital Signs: 10:52 BP 130 / 89; Pulse 121; Resp 20; Temp 98.0; Pulse Ox 97% on R/A; Weight 113.4 kg; aj Height 6 ft. 0 in. (182.88 cm); 11:21 BP 123 / 88; Pulse 110; Resp 18; Pulse Ox 96% on R/A; Pain 0/10; em 12:40 BP 140 / 92; Pulse 103; Resp 18; Pulse Ox 97% on R/A; Pain 0/10; em 13:20 BP 155 / 135; Pulse 100; Resp 20; Pulse Ox 100% on R/A; mh5 14:02 BP 132 / 84; Pulse 104; Resp 20; Pulse Ox 100% on R/A; mh5 15:15 BP 117 / 76; Pulse 109; Resp 20; Pulse Ox 95% on R/A; mh5 16:00 BP 118 / 68; Pulse 108; Resp 19; Pulse Ox 99% on R/A; em 17:00 BP 114 / 75; Pulse 103; Resp 20; Pulse Ox 100% on R/A; Pain 0/10; em 18:00 BP 132 / 79; Pulse 102; Resp 19; Pulse Ox 100% on R/A; Pain 0/10; em 19:15 BP 129 / 89; Pulse 103; Resp 16; Pulse Ox 97% on R/A; jb4 10:52 Body Mass Index 33.91 (113.40 kg, 182.88 cm) aj MDM: 10:56 Patient medically screened. pm1 14:27 Data reviewed: vital signs. Data interpreted: Pulse oximetry: on room air is 97 %. pm1 Interpretation: normal. Counseling: I had a detailed discussion with the patient and/or guardian regarding: the historical points, exam findings, and any diagnostic results supporting the discharge/admit diagnosis, lab results, radiology results, the need for further work-up and treatment in the hospital. 14:40 Physician consultation: Augie Soler MD was called at 14:40, was contacted at 14:40, pm1 regarding admission, patient's condition, and will see patient in ED. 09/30 11:05 Order name: Basic Metabolic Panel; Complete Time: 12:50 pm1 09/30 11:05 Order name: CBC with Diff; Complete Time: 13:16 pm1 09/30 11:05 Order name: Creatinine for Radiology; Complete Time: 12:50 pm1 09/30 11:05 Order name: Hepatic Function; Complete Time: 12:50 pm1 09/30 11:05 Order name: Lipase; Complete Time: 12:50 pm1 09/30 12:32 Order name: Manual Differential; Complete Time: 13:16 EDMS 09/30 11:05 Order name: CT Abd/Pelvis - W/Contrast: PO and IV contrast; Complete Time: 13:50 pm1 09/30 12:52 Order name: Urine Microscopic Only; Complete Time: 13:38 pm1 09/30 13:12 Order name: Urine Dipstick--Ancillary (enter results); Complete Time: 19:56 eb 09/30 15:24 Order name: Abdomen Single View; Complete Time: 15:32 EDMS 09/30 11:05 Order name: IV Saline Lock; Complete Time: 12:33 pm1 09/30 11:05 Order name: Labs collected and sent; Complete Time: 12:33 pm1 09/30 12:52 Order name: Urine Dipstick-Ancillary (obtain specimen); Complete Time: 13:01 pm1 09/30 13:59 Order name: NPO; Complete Time: 14:55 pm1 09/30 13:59 Order name: NG Tube; Complete Time: 14:55 pm1 Administered Medications: 12:04 Drug: NS 0.9% 1000 ml Route: IV; Rate: 1000 ml; Site: right antecubital; em 12:53 Follow up: IV Status: Completed infusion; IV Intake: 1000ml em 12:04 Drug: Zofran 4 mg Route: IVP; Site: right antecubital; ss 12:55 Follow up: Response: No adverse reaction; Nausea is decreased em 12:34 Drug: morphine 4 mg Route: IVP; Site: right antecubital; ss 12:40 Follow up: Response: No adverse reaction; Pain is decreased em 12:59 Drug: morphine 4 mg Route: IVP; Site: right antecubital; em 13:30 Follow up: Response: No adverse reaction; Pain is decreased em 14:03 Drug: morphine 4 mg Route: IVP; Site: right antecubital; em 14:54 Follow up: Response: No adverse reaction em 14:04 Drug: Zofran 4 mg Route: IVP; Site: right antecubital; em 14:55 Follow up: Response: No adverse reaction; Nausea is decreased em 14:24 Drug: NS 0.9% 1000 ml Route: IV; Rate: 100 ml/hr; Site: right jugular; em 16:52 Follow up: IV Status: Infusion continued upon admission; IV Intake: 150ml em 15:30 Drug: morphine 2 mg Route: IVP; Site: right jugular; em 16:37 Follow up: Response: No adverse reaction; Pain is decreased em 17:05 Drug: morphine 2 mg Route: IVP; Site: right jugular; em 17:18 Follow up: Response: No adverse reaction; Pain is decreased em 19:18 Drug: Phenergan 12.5 mg Route: IVP; Site: right jugular; jb4 20:05 Follow up: Response: No adverse reaction; Nausea is decreased jb4 Disposition: 09/30/18 14:30 Hospitalization ordered by Augie Soler for Inpatient Admission. Preliminary diagnosis is Other intestinal obstruction - Small bowel obstruction. - Bed requested for Telemetry/MedSurg (Inpatient). - Status is Inpatient Admission. jb4 - Condition is Stable. - Problem is new. - Symptoms have improved. UTI on Admission? No Addendum: 10/03/2018 09:39 Co-signature as Attending Physician, Krish Sandoval MD I agree with the assessment and c frank plan of care. Signatures: Dispatcher [employer] [facility] Francia Merino, RN Ana Kraus RN Krish Chandler MD MD cha Munoz, Edgar, SMOKING PIPES CLEANER SMOKING PIPES CLEANER em Ann Adame RN RN ss Lj Weir, RETAIL ASSOCIATE MANAGER BILINGUAL RETAIL ASSOCIATE MANAGER BILINGUAL pm1 Win Lu RN RN jb4 Corrections: (The following items were deleted from the chart) 09/30 15:23 15:00 Chest Single View+[email or web address] ordered. [facility] 18:31 14:30 Hospitalization Ordered by Augie Soler MD for Inpatient Admission. Preliminary dw diagnosis is Other intestinal obstruction - Small bowel obstruction. Bed requested for Telemetry/MedSurg (Inpatient). Status is Inpatient Admission. Condition is Stable. Problem is new. Symptoms have improved. UTI on Admission? No. pm1 20:10 18:31 09/30/2018 14:30 Hospitalization Ordered by Augie Soler MD for Inpatient jb4 Admission. Preliminary diagnosis is Other intestinal obstruction - Small bowel obstruction. Bed requested for Telemetry/MedSurg (Inpatient). Status is Inpatient Admission. Condition is Stable. Problem is new. Symptoms have improved. UTI on Admission? No. dw
--- NOTE | 2018-09-30 15:30 | RAD REPORT ---
EXAM DESCRIPTION: RAD - Abdomen Single View - 09/30/2018 3:16 pm CLINICAL HISTORY: NG tube placement COMPARISON: CT study September 30 FINDINGS: Portable supine imaging shows motion degradation. Nasogastric tube is identifiable and in good position. No suspicious or unexpected finding. IMPRESSION: NG tube in good position.
[2018-09-30] MEDS ORDERED: PROMETHAZINE 25 MG/ML VIAL ONE (19:16)
[2018-09-30 19:30] LABS: Urine Blood NEGATIVE (NEG); Urine Glucose 2+ (NEG); Urine Protein NEGATIVE (NEG); Urine pH 5.5 (5.0-7.0)
[2018-09-30] MEDS ORDERED: ACETAMINOPHEN 500 MG TAB PO PRN (19:51)
[2018-09-30] MEDS ORDERED: MORPHINE 2 MG/ML SYR IV PRN (20:28)
[2018-09-30] MEDS: ONDANSETRON 4 MG/2 ML VIAL IV PRN (20:58)
[2018-09-30] MEDS: NA CHLORIDE 0.9% 1,000 ML IV SCH (21:00)
--- NOTE | 2018-09-30 21:47 | P.HP ---
Certification for Inpatient Patient admitted to: Inpatient With expected LOS: >2 Midnights Practitioner: I am a practitioner with admitting privileges, knowledge of patient current condition, hospital course, and medical plan of care. Services: Services provided to patient in accordance with Admission requirements found in Title 42 Section 412.3 of the Code of Federal Regulations Patient History Date of Service: 10/01/18 Reason for admission: Abdomnial pain History of Present Illness: 68 yr old male with history of multiple abdominal surgeries admitted with abdominal pain. Patient states pain started the evening prior to admission, was diffuse without radiation. It was associated with nausea, vomiting, fever, chills and unable to tolerate PO. He has a history of diverticulitis, requiring resection of colon, a hernia repair requiring correction in 2008, hx of asplenia ([facility] baseline WBC around 13K), and cholecystectomy. In the ED, he was found to have a SBO on CT, and his symptoms improved drastically with the NGT placement. At the time of my exam, he was AOx3, he was in no acute distress and his vital signs were stable. Allergies sertraline [From Zoloft] Allergy (Verified 09/30/18 20:28) Hives/Rash Home Medications: Docusate [Colace Cap*] 100 mg PO DAILY 01/09/15 Gabapentin [Neurontin*] 1 tab PO BID 12/29/17 Metformin HCl 1 tab PO BID 12/29/17 Methocarbamol 500 mg PO BID 02/10/18 Bisacodyl [Dulcolax*] 10 mg IA DAILY PRN 04/01/18 Clonidine HCl [Catapres*] 0.2 mg PO Q12H 04/01/18 Carvedilol [Coreg*] 25 mg PO Q12HR tab 04/02/18 Famotidine [Pepcid*] 20 mg PO DAILY tab 04/02/18 Lisinopril [Prinivil*] 10 mg PO DAILY tab 04/02/18 buPROPion HCl [Wellbutrin*] 200 mg PO BID tab 04/02/18 - Past Medical/Surgical History Has patient received pneumonia vaccine in the past: Yes Diabetic: Yes -: HTN -: Diabetes mellitus -: psoriasis -: arthritis -: neuropathy -: cholecystectomy -: spleenectomy -: lumbar surgery -: left knee replacement -: 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 -: appendectomy -: hemorrhoid surgery -: colectomy - Family History Mother -: Heart disease Father -: Lung disease grandfather -: Other (see notes) Notes: liver cirrhosis - Social History Smoking Status: Former smoker Alcohol use: No CD- Drugs: No Caffeine use: Yes Place of Residence: Home Review of Systems General: Fever, Chills, As per HPI Eyes: Unremarkable ENT: Unremarkable Respiratory: Unremarkable Cardiovascular: Unremarkable Gastrointestinal: Nausea, Vomiting, Abdominal Pain, As per HPI Genitourinary: Unremarkable Musculoskeletal: Unremarkable Integumentary: Unremarkable Neurological: Unremarkable Lymphatics: Unremarkable Physical Examination - Physical Exam General: Alert, In no apparent distress, Oriented x3 HEENT: Atraumatic, PERRLA, Mucous membr. moist/pink, EOMI, Sclerae nonicteric Neck: Supple, 2+ carotid pulse no bruit, No LAD, Without JVD or thyroid abnormality Respiratory: Clear to auscultation bilaterally, Normal air movement Cardiovascular: Regular rate/rhythm, Normal S1 S2 Gastrointestinal: Hypoactive, Other (Multiple abdominal scars), Distended, Tenderness Musculoskeletal: No tenderness, Other (Right AKA noted without e/o infection. ) Integumentary: No rashes Neurological: Normal speech, Normal strength at 5/5 x4 extr, Normal tone, Normal affect - Studies Laboratory Data (last 24 hrs) 09/30/18 12:00: Creatinine 1.20 09/30/18 12:00: WBC 20.4 H*, Hgb 13.5 L, Hct 40.1, Plt Count 508 H 09/30/18 12:00: Sodium 134 L, Potassium 4.6, BUN 17, Creatinine 1.20, Glucose 286 H, Total Bilirubin 0.7, AST 15, ALT 24, Alkaline Phosphatase 121 H, Lipase 108 Assessment and Plan - Plan This is a 68 yr old male with: SBO with NGT in place, symptoms drastically improved Conservative management: NPO, NGT draining General surgery, Dr. Scott consulted. Though patient states he does not want surgery IV antibiotics Asplenia, chronic Right AKA, stable. Leuckocytosis: Per patient, baseline WBC after asplenia is aorund 13 K. His is elevated today, likely secondary to GI etiology. Continue IV antibiotics. Monitor DVT prophylaxis: Lovenox GI prophylaxis: None Diet: NPO, w/ NGT Dispo: Admit to floor, conservative management. Pending symptomatic improvement. - Advance Directives Does patient have a Living Will: Yes Does patient have a Durable POA for Healthcare: Yes
[2018-09-30] MEDS: MORPHINE 4 MG/ML SYR IV PRN (22:49)
[2018-09-30 23:25] VITALS: BMI 33.9
[2018-09-30 23:53] LABS: Urine Appearance CLEAR; Urine Bilirubin NEGATIVE (NEG); Urine Blood NEGATIVE (NEG); Urine Color YELLOW; Urine Glucose 1+ (NEG); Urine Protein NEGATIVE (NEG); Urine Specific Gravity >=1.030 (1.005-1.030); Urine pH 5.5 (5.0-7.0)
[2018-10-01 00:53] LABS: Urine Microscopic Reflex NO UMIC
[2018-10-01] MEDS: MORPHINE 4 MG/ML SYR IV PRN ×5 (03:26→20:30)
[2018-10-01] MEDS: NA CHLORIDE 0.9% 1,000 ML IV SCH ×3 (03:31→20:31)
[2018-10-01 05:05] LABS: Absolute Lymphocytes (CBC) 3.1 K/uL (0.7-4.9); Absolute Monocytes 2.7 K/uL (0.1-1.3); Absolute Neutrophil 4.8 K/uL (1.8-8.0); Basophils % 0.6 % (0-1.3); Eosinophils % 2.6 % (0-4.4); Hematocrit 35.9 % (39.6-49.0); Lymphocytes % 28.6 % (15.3-44.8); MCH 31.7 pg (27.0-35.0); MCV 92.2 fL (80-100); MPV 9.3 fL (7.6-11.3); Monocytes % 24.3 % (3.3-12.3); RBC Red Blood Cell Count 3.89 M/uL (4.33-5.43)
[2018-10-01 05:21] LABS: Bilirubin Total 1.4 mg/dL (0.2-1.0); Potassium 4.2 mmol/L (3.5-5.1); Protein, Total 6.7 g/dL (6.4-8.2)
[2018-10-01 06:08] LABS: Urine White Blood Cell Casts OK
[2018-10-01 06:09] LABS: Blood Morphology Comment NOT SEEN (NOT SEEN); Platelet Estimate ADEQ
[2018-10-01] MEDS ORDERED: PNEUMOCOCCAL VACCINE 0.5 ML IMVAC ONE (08:00)
[2018-10-01] MEDS ORDERED: INFLUENZA VACCINE (for 3y+) 0.5 ML DOSE IMVAC ONE (08:00)
[2018-10-01] MEDS: ENOXAPARIN 40 MG/0.4 ML SQ SCH (09:42)
--- NOTE | 2018-10-01 15:10 | P.PN ---
Subjective Date of Service: 10/01/18 Chief Complaint: Abdomnial pain Patient seen and examined at bedside. No family at bedside. Case discussed with nursing staff and Dr. Scott. NG tube in place, still draining. The patient reports drastic improvement in symptoms. Denies excessive abdominal pain, no nausea or vomiting. States he would like to drink or eat something. No bowel movements, not passing gas yet. Review of Systems As noted above Physical Examination - Vital Signs Temperature: 97.8 F Blood Pressure: 105/56 Pulse: 86 Respirations: 86 Pulse Ox (%): 95 - Physical Exam General: Alert, In no apparent distress, Oriented x3 HEENT: Atraumatic, PERRLA, EOMI Neck: Supple, JVD not distended Respiratory: Clear to auscultation bilaterally, Normal air movement Cardiovascular: Regular rate/rhythm, Normal S1 S2 Gastrointestinal: Other (NG tube in place), Tenderness Musculoskeletal: No tenderness Integumentary: No rashes Neurological: Normal speech, Normal tone, Normal affect Lymphatics: No axilla or inguinal lymphadenopathy Assessment And Plan - Plan This is a 68 yr old male with: SBO: Likely secondary to history of multiple abdominal surgeries with NGT in place, symptoms drastically improved Conservative management: NPO, NGT draining. If still doing well by this afternoon, will clamp NG tube to see if patient tolerates. Once cleared, patient can try small amounts of liquids to see if he tolerates. General surgery, Dr. Scott consulted. Though patient states he does not want surgery Continue IV antibiotics Asplenia, chronic Right AKA, stable. Leuckocytosis: Per patient, baseline WBC after asplenia is aorund 13 K. white blood cell count down to mostly normal range today. Continue IV antibiotics. Monitor Hypertension 0 hold blood pressure medications for now as patient blood pressure lower end. Will continue to monitor and restart medications as needed Diabetes mellitus, type 2 Accu-Cheks, sliding scale insulin. Will adjust as needed DVT prophylaxis: Lovenox GI prophylaxis: None Diet: NPO, w/ NGT Dispo: conservative management. Pending symptomatic improvement. May clamp NG tube later today if patient doing well throughout the afternoon and he starts to pass gas. Physician Review: Patient Assessed, Agree with Above Assessment and Plan
[2018-10-01] MEDS: cloNIDine HCl 0.1 MG TAB PO SCH ×2 (15:15→21:00)
--- NOTE | 2018-10-01 18:25 | CON ---
Date of Consultation: 10/01/2018 Reason For Consultation: Small bowel obstruction. History Of Present Illness: This is the case of a 68-year-old patient, who comes to us with nausea a nd vomiting. He states he was eating some corn before that happened. The patient feels better right now, passing some gas. He was admitted to the hospital with small bowel obstruction until a surgica l consult was obtained. The patient has an NG tube at this moment, and once again he is passing gas. Today, he feels a lot better. He is not new to surgery. He says he has an extensive abdominal addy judit including bowel resection for a colovesical fistula, hernia repair in 2008, splenic removal, cho lecystectomy, appendectomy, history of small bowel obstruction with recurrence in the past for which he usually recovered conservatively. Allergies: SERTRALINE. Medications: Reviewed. Past Surgical History: Hemorrhoid surgery and also amputation of extremity on the right side, and le ft knee replacement. Past Medical History: Hypertension, diabetes, and neuropathy. Family History: Heart disease, lung disease. Social History: He does not smoke. He does not drink alcohol. Review of Systems: Ten points, otherwise unremarkable. Physical Examination: General: He is awake, alert, in no distress. HEENT: Pupils are equal and reactive, anicteric. Neck: Supple. Chest: Clear. Heart: S1, S2. Abdomen: Soft and depressible. No guarding, rebound, or peritoneal signs. Softly distended, but no peritonitis. Rectal: Deferred. Extremities: Good capillary refill. Laboratory Data: Blood work shows a WBC count of 10.4 yesterday, but today is 11, with hemoglobin of 12.3 and platelets of 443. Potassium 4.2, bicarb is 23, glucose 174. CAT scan of the abdomen and p matilda interpreted by Dr. Cazares as small bowel obstruction. Assessment: This is a 68-year-old patient who came yesterday with small bowel obstruction seen on CAT scan, after eating some corn. Today, he states he feels better. Finally, he is starting to pa ss gas, having bowel movement, although the abdomen is still mildly distended and inflamed. NG tube is still present. We are going to clamp that today. We are going to give him just 1 more day of bow el rest. Tomorrow, we might try some diet if he continues improving clinically the way it is. He un derstand and he was advised about the proper chewing on his foot and also selective diet. He underst ands the options of a laparotomy, possible bowel resection, possible ostomy, although he preferred no t to use these options at this moment and he wants to give a try to conservative treatment. We will be there for him to try to help him with that. He was advised once again to see also his gastroenter ologist for proper check up of his colonoscopy. NILSON Voice ID: [id number] Report ID: [id number]
[2018-10-01] MEDS: GABAPENTIN 300 MG CAP PO SCH (20:29)
[2018-10-01] MEDS: METHOCARBAMOL 500 MG TAB PO SCH (20:29)
[2018-10-01] MEDS: buPROPion HCl 100 MG TAB PO SCH (20:29)
[2018-10-01] MEDS ORDERED: CARVEDILOL 25 MG TAB PO SCH (21:00)
[2018-10-01 22:58] VITALS: O2SAT 95
[2018-10-02] MEDS: MORPHINE 4 MG/ML SYR IV PRN ×5 (00:09→20:38)
[2018-10-02 05:38] LABS: Absolute Lymphocytes (CBC) 4.9 K/uL (0.7-4.9); Absolute Monocytes 2.2 K/uL (0.1-1.3); Absolute Neutrophil 4.3 K/uL (1.8-8.0); Basophils % 0.6 % (0-1.3); Eosinophils % 8.5 % (0-4.4); Hematocrit 36.2 % (39.6-49.0); Lymphocytes % 39.1 % (15.3-44.8); MCV 92.4 fL (80-100); MPV 9.8 fL (7.6-11.3); Monocytes % 17.5 % (3.3-12.3); RBC Red Blood Cell Count 3.91 M/uL (4.33-5.43)
[2018-10-02 05:54] LABS: Albumin 2.9 g/dL (3.4-5.0); Bilirubin Total 1.8 mg/dL (0.2-1.0); Phosphorus 2.4 mg/dL (2.5-4.9); Potassium 3.9 mmol/L (3.5-5.1); Protein, Total 6.4 g/dL (6.4-8.2)
[2018-10-02] MEDS ORDERED: POTASSIUM CL SA 10 MEQ TAB PO ONE (06:06)
[2018-10-02] MEDS: POTASS/SODIUM PHOSPHATE 1 PKT POWD.PACK PO SCH ×2 (06:26→09:08)
[2018-10-02] MEDS ORDERED: LISINOPRIL 10 MG TAB PO SCH (09:00)
[2018-10-02] MEDS: ENOXAPARIN 40 MG/0.4 ML SQ SCH (09:08)
[2018-10-02] MEDS: GABAPENTIN 300 MG CAP PO SCH ×2 (09:08→20:37)
[2018-10-02] MEDS: METHOCARBAMOL 500 MG TAB PO SCH ×2 (09:09→20:37)
[2018-10-02] MEDS: FAMOTIDINE 20 MG TAB PO SCH (09:09)
[2018-10-02] MEDS: buPROPion HCl 100 MG TAB PO SCH ×2 (09:09→20:38)
[2018-10-02] MEDS: NA CHLORIDE 0.9% 1,000 ML IV SCH (13:21)
--- NOTE | 2018-10-02 22:29 | P.PN ---
Subjective Date of Service: 10/02/18 Chief Complaint: Abdomnial pain Patient seen and examined at bedside. No family at bedside. Case discussed with nursing staff and Dr. Scott. NG tube in place, clamped. The patient reports drastic improvement in symptoms. Denies excessive abdominal pain, no nausea or vomiting. States he would like to drink or eat something. No bowel movements, but passing gas. Review of Systems As noted Physical Examination - Vital Signs Temperature: 97.3 F Blood Pressure: 115/59 Pulse: 92 Respirations: 18 Pulse Ox (%): 95 - Physical Exam General: Alert, In no apparent distress, Oriented x3 HEENT: Atraumatic, PERRLA, EOMI Neck: Supple, JVD not distended Respiratory: Clear to auscultation bilaterally, Normal air movement Cardiovascular: Regular rate/rhythm, Normal S1 S2 Gastrointestinal: Normal bowel sounds, Tenderness Musculoskeletal: No tenderness Integumentary: No rashes Neurological: Normal speech, Normal tone, Normal affect Lymphatics: No axilla or inguinal lymphadenopathy Assessment And Plan - Plan This is a 68 yr old male with: SBO: Likely secondary to history of multiple abdominal surgeries NGT clamped, started CLD. If tolerates, will remove NGT. General surgery, Dr. Scott consulted. Recommendations appreciated. No surgical intervention planned at this time. Continue IV antibiotics Asplenia, chronic Right AKA, stable. Leuckocytosis: Per patient, baseline WBC after asplenia is aorund 13 K. white blood cell count down to mostly normal range today. Continue IV antibiotics. Monitor Hypertension hold blood pressure medications for now as patient blood pressure lower end. Will continue to monitor and restart medications as needed Diabetes mellitus, type 2 Accu-Cheks, sliding scale insulin. Will adjust as needed DVT prophylaxis: Lovenox GI prophylaxis: None Diet:Clamp NGT, trial of CLD, advance as tolerated Dispo: conservative management. Pending symptomatic improvement. Physician Review: Patient Assessed, Agree with Above Assessment and Plan
--- NOTE | 2018-10-02 23:23 | PN ---
Date of Progress Note: 10/02/2018 Diagnoses: Abdominal pain. Small bowel obstruction. Subjective: The patient is doing better, passing flatus. No shortness of breath. No chest pain. Review of Systems: Ten points otherwise unremarkable. Objective: Chest: Clear. Abdomen: Soft, distended, but no guarding or rebound. No peritoneal sign. Extremities: No calf tenderness. Blood Work: WBC count of 10.4. Plan: Discontinue NG tube. Advance diet. Out of bed. HM/MODL Voice ID: [id number] Report ID: [id number]
[2018-10-03] MEDS: MORPHINE 4 MG/ML SYR IV PRN ×4 (00:21→18:22)
[2018-10-03] MEDS: NA CHLORIDE 0.9% 1,000 ML IV SCH ×2 (00:22→15:40)
[2018-10-03 05:23] LABS: Absolute Lymphocytes (CBC) 4.8 K/uL (0.7-4.9); Absolute Monocytes 2.1 K/uL (0.1-1.3); Absolute Neutrophil 5.2 K/uL (1.8-8.0); Basophils % 0.9 % (0-1.3); Eosinophils % 6.3 % (0-4.4); Hematocrit 34.4 % (39.6-49.0); Lymphocytes % 36.8 % (15.3-44.8); MCH 31.4 pg (27.0-35.0); MCV 92.4 fL (80-100); MPV 9.5 fL (7.6-11.3); Monocytes % 16.2 % (3.3-12.3); RBC Red Blood Cell Count 3.73 M/uL (4.33-5.43)
[2018-10-03 05:42] LABS: ALT/SGPT 101 U/L (12-78); AST/SGOT 102 U/L (15-37); Albumin 2.8 g/dL (3.4-5.0); Alkaline Phosphatase 176 U/L (45-117); BUN Blood Urea Nitrogen 7 mg/dL (7-18); Bicarbonate 24 mmol/L (21-32); Bilirubin Total 1.4 mg/dL (0.2-1.0); Glucose Level 165 mg/dL (74-106); Potassium 3.7 mmol/L (3.5-5.1); Protein, Total 6.4 g/dL (6.4-8.2); Sodium Level 140 mmol/L (136-145)
[2018-10-03] MEDS ORDERED: POTASSIUM CL SA 10 MEQ TAB PO ONE (06:14)
[2018-10-03] MEDS: ENOXAPARIN 40 MG/0.4 ML SQ SCH (08:59)
[2018-10-03] MEDS: GABAPENTIN 300 MG CAP PO SCH ×2 (09:00→21:21)
[2018-10-03] MEDS: METHOCARBAMOL 500 MG TAB PO SCH ×2 (09:00→21:21)
[2018-10-03] MEDS: FAMOTIDINE 20 MG TAB PO SCH (09:00)
[2018-10-03] MEDS: buPROPion HCl 100 MG TAB PO SCH ×2 (09:00→21:24)
--- NOTE | 2018-10-03 14:46 | PN ---
Date of Progress Note: 10/03/2018 Diagnosis: Small bowel obstruction. Subjective: Patient is doing better. No nausea, no vomiting. Review of Systems: Ten points otherwise unremarkable. Abdomen: Soft and depressible. No guarding or rebound. Extremities: Good capillary refill. Laboratory Data: Blood work shows WBC count of 13 with hemoglobin of 11.7. Plan: We are going to advance diet. He is tolerating clear liquid, we can advance to full liquid di et, ambulating. He is passing gas and just a small bowel movement. He still has some mild tendernes s in abdomen for what he is requesting some pain medication. Once we can get pain control or little better, then he might be able to go home. If he tolerates diet. LORETO/ALMA Voice ID: [id number] Report ID: [id number]
--- NOTE | 2018-10-03 14:56 | P.PN ---
Subjective Date of Service: 10/03/18 Chief Complaint: Abdomnial pain Patient seen and examined at bedside. No family at bedside. Case discussed with nursing staff and Dr. Scott. NG tube discontinued yesterday. Denies excessive abdominal pain, no nausea or vomiting. Tolerating clear liquid diet at this time. No bowel movements, but passing gas. Review of Systems As noted above Physical Examination - Vital Signs Temperature: 97.3 F Blood Pressure: 125/65 Pulse: 84 Respirations: 20 Pulse Ox (%): 95 - Physical Exam General: Alert, In no apparent distress, Oriented x3 HEENT: Atraumatic, PERRLA, EOMI Neck: Supple, JVD not distended Respiratory: Clear to auscultation bilaterally, Normal air movement Cardiovascular: Regular rate/rhythm, Normal S1 S2 Gastrointestinal: Normal bowel sounds, Tenderness (Diffuse abdominal tenderness) Musculoskeletal: No tenderness Integumentary: No rashes Neurological: Normal speech, Normal tone, Normal affect Assessment And Plan - Plan This is a 68 yr old male with: SBO: Likely secondary to history of multiple abdominal surgeries NGT removed, tolerating CLD. Advance as tolerated General surgery, Dr. Scott consulted. Recommendations appreciated. No surgical intervention planned at this time. Continue IV antibiotics Asplenia, chronic Right AKA, stable. Leuckocytosis: Per patient, baseline WBC after asplenia is aorund 13 K. white blood cell count down to mostly normal range today. Continue IV antibiotics. Monitor Hypertension Blood pressure starting to elevate the hand. Restart lisinopril 10 mg daily and carvedilol 12.5 mg twice a day. Diabetes mellitus, type 2 Accu-Cheks, sliding scale insulin. Will adjust as needed DVT prophylaxis: Lovenox GI prophylaxis: None Diet: Clear liquid diet, advance as tolerated Dispo: conservative management. Pending symptomatic improvement. Physician Review: Patient Assessed, Agree with Above Assessment and Plan Time Spent Managing PTS Care (In Minutes): 35
[2018-10-03] MEDS: LISINOPRIL 10 MG TAB PO SCH (17:18)
[2018-10-03] MEDS ORDERED: GLUCAGON 1 MG/VIAL IM PRN (17:55)
[2018-10-03] MEDS ORDERED: D50W 25 GM/50 ML SYRINGE IV PRN (17:55)
[2018-10-03] MEDS: CARVEDILOL 12.5 MG TAB PO SCH (18:21)
[2018-10-03] MEDS: INSULIN -REGULAR HUMAN 50 UNIT/0.5 ML ML SQ SCH (21:00)
[2018-10-04] MEDS: CARVEDILOL 12.5 MG TAB PO SCH (05:01)
[2018-10-04] MEDS: NA CHLORIDE 0.9% 1,000 ML IV SCH (05:01)
[2018-10-04] MEDS: ONDANSETRON 4 MG/2 ML VIAL IV PRN (05:11)
[2018-10-04 06:06] LABS: Absolute Lymphocytes (CBC) 4.1 K/uL (0.7-4.9); Absolute Monocytes 2.5 K/uL (0.1-1.3); Absolute Neutrophil 15.3 K/uL (1.8-8.0); Basophils % 0.7 % (0-1.3); Eosinophils % 0.9 % (0-4.4); Hematocrit 36.9 % (39.6-49.0); Lymphocytes % 18.3 % (15.3-44.8); MCH 31.1 pg (27.0-35.0); MCV 91.6 fL (80-100); MPV 9.5 fL (7.6-11.3); Monocytes % 11.1 % (3.3-12.3); RBC Red Blood Cell Count 4.02 M/uL (4.33-5.43)
[2018-10-04 06:15] LABS: Albumin 2.9 g/dL (3.4-5.0); Magnesium 1.7 mg/dL (1.8-2.4); Potassium 3.9 mmol/L (3.5-5.1)
[2018-10-04] MEDS ORDERED: MAGNESIUM SULFATE 1 gm IVPB 1 GM/100 ML BAG IV ONE (06:18)
[2018-10-04] MEDS ORDERED: POTASSIUM 25 MEQ EFFERV TAB PO ONE (06:18)
[2018-10-04 07:02] LABS: Blood Morphology Comment NOT SEEN (NOT SEEN); Platelet Estimate INCR
[2018-10-04] MEDS: MORPHINE 4 MG/ML SYR IV PRN (07:19)
[2018-10-04] MEDS: INSULIN -REGULAR HUMAN 50 UNIT/0.5 ML ML SQ SCH ×2 (07:30→11:30)
[2018-10-04] MEDS: ENOXAPARIN 40 MG/0.4 ML SQ SCH (08:43)
[2018-10-04] MEDS: METHOCARBAMOL 500 MG TAB PO SCH (08:44)
[2018-10-04] MEDS: GABAPENTIN 300 MG CAP PO SCH (08:45)
[2018-10-04] MEDS: LISINOPRIL 10 MG TAB PO SCH (08:45)
[2018-10-04] MEDS: FAMOTIDINE 20 MG TAB PO SCH (08:45)
[2018-10-04] MEDS: buPROPion HCl 100 MG TAB PO SCH (08:46)
[2018-10-04 12:35] VITALS: BP 111/62; TEMP 98
--- NOTE | 2018-10-05 06:19 | DS ---
Date of Discharge: 10/04/2018 Consultants: Dr. Scott, General Surgery. Procedures: None. Admitting Diagnoses: 1.Small bowel obstruction. 2.Chronic asplenia. 3.Right [id number] amputation. 4.Leukocytosis secondary to asplenia. Discharge Diagnoses: 1.Small bowel obstruction secondary to likely adhesions from multiple abdominal surgeries, resolved. 2.Asplenia. 3.Right qbbfn-[id number] amputation. 4.Leukocytosis. 5.Essential hypertension. 6.Diabetes mellitus type 2, with hyperglycemia, [id number]. Hospital Course: The patient is a 68-year-old male with the past medical history of diabetes, hypert ension, rheumatoid arthritis, multiple abdominal surgeries, who comes in with abdominal pain. He was found to have a small bowel obstruction on CT scan. The patient has NG tube placement which improve d his symptoms significantly. The patient was seen with Dr. Scott with General Surgery, who recom mended conservative treatment. No acute surgical intervention was recommended. The patient did well with conservative treatment. He was able to advance his clear liquids and tolerating advanced diet. The patient was able to pass gas. The patient otherwise did well over the course of the hospital s [facility]. The patient did have some elevated liver enzymes. The patient was then cleared for discharge f rom a surgical standpoint. The patient did have elevated white count, which is likely secondary to h is splenectomy. Denies any signs of sepsis. Procalcitonin was 0.1. The patient was afebrile. Bloo d pressure was stable in the 130s. The patient was not tachycardic. The patient was then cleared fo r discharge from surgical standpoint. The patient was then discharged home in a stable condition. Activity: As tolerated. Medications: As per medication reconciliation list. Followup: Follow up with primary care physician in 2 to 3 days. Follow up with Dr. Scott in 1 to 2 weeks. Return here for worsening condition. Diet: [place] diet. Code Status: Full. Physical Examination: General: Awake, alert, oriented, no acute distress. CV: S1, S2. No murmurs. Respiratory: Moving air well bilaterally. No wheezing. Gastrointestinal: Abdomen is soft, nontender, and nondistended. Positive bowel sounds. Extremities: No clubbing, cyanosis, or edema on the left. Musculoskeletal: Right AKA. Neuro: Nonfocal. Total time spent discharging the patient was 33 minutes. MARY BETH Voice ID: [id number] Report ID: [id number]
== END 2018-10-04 12:04 | disposition home or self-care (01) | DRG 389 ==
LOC: ER 10:35 → ERHOLD 15:01 → 2ND 19:57
PROVIDERS: ADMIT Family Medicine; ATTEND Family Medicine
PROC: 0D9670Z Drainage of Stomach with Drainage Device, Via Natural or Artificial Opening (ICD-10-PCS; principal; 2018-09-30)
DX: K56.50 Intestinal adhesions [bands], unspecified as to partial versus complete obstruction (principal); Q89.01 Asplenia (congenital); Z89.611 Acquired absence of right leg above knee; E11.65 Type 2 diabetes mellitus with hyperglycemia; Z79.84 Long term (current) use of oral hypoglycemic drugs; I10 Essential (primary) hypertension; D72.829 Elevated white blood cell count, unspecified; M06.9 Rheumatoid arthritis, unspecified; E11.40 Type 2 diabetes mellitus with diabetic neuropathy, unspecified; Z87.891 Personal history of nicotine dependence
CPT/HCPCS: 36415; 74018; 74177; 80048; 80053; 80076; 81003; 81015; 82962; 83690; 83735; 84100; 84145; 85025; 87040; 90670; 99285; G0008; G0009; J1650; J2270; J2405; J2550; J3475; J7030; Q2035; Q9967

== ENCOUNTER 2019-02-05 18:52 | Inpatient (IN) | payer OTHER ==
[2019-02-05] MEDS ORDERED: FENTANYL CITR 100 MCG/2 ML ONE (20:29)
[2019-02-05] MEDS ORDERED: ONDANSETRON 4 MG/2 ML VIAL ONE (20:30)
[2019-02-05 21:42] LABS: Absolute Lymphocytes (CBC) 3.7 K/uL (0.7-4.9); Absolute Monocytes 1.3 K/uL (0.1-1.3); Absolute Neutrophil 11.3 K/uL (1.8-8.0); Eosinophils % 0.8 % (0-4.4); Hematocrit 43.2 % (39.6-49.0); Lymphocytes % 22.3 % (15.3-44.8); MPV 9.3 fL (7.6-11.3); Monocytes % 7.7 % (3.3-12.3); RBC Red Blood Cell Count 4.83 M/uL (4.33-5.43)
[2019-02-05 21:52] LABS: Albumin 3.7 g/dL (3.4-5.0); Bilirubin Direct 0.2 mg/dL (0-0.2); Bilirubin Total 0.5 mg/dL (0.2-1.0); Potassium 4.7 mmol/L (3.5-5.1); Protein, Total 7.7 g/dL (6.4-8.2)
--- NOTE | 2019-02-05 22:56 | EDPHYS ---
Physician Documentation [facility] Name: Anish Leon Age: 68 yrs Sex: Male : 1950 Arrival Date: 02/05/2019 Time: 18:53 Bed 24 Private MD: Sonny Moncada T ED Physician Rakesh Romano HPI: 02/06 00:54 This 68 yrs old Male presents to ER via Ambulatory with complaints of gs Abdominal Pain. 00:54 Onset: The symptoms/episode began/occurred yesterday. The symptoms do not radiate. gs Associated signs and symptoms: Pertinent positives: nausea and vomiting. The symptoms are described as crampy. Modifying factors: The symptoms are alleviated by nothing, the symptoms are aggravated by food. Severity of pain: At its worst the pain was severe in the emergency department the pain is unchanged. The patient has experienced similar episodes in the past, a few times. The patient has not recently seen a physician. Historical: - Allergies: 02/05 19:01 Zoloft; sg - PMHx: 19:01 Diabetes - NIDDM; Hypertension; neuron pain; Pancreatitis; prostate problems; sg - PSHx: 19:01 right knee amputation; Cholecystectomy; Appendectomy; splenectomy; sg - Immunization history:: Adult Immunizations up to date. - Social history:: Smoking status: Patient/guardian denies using tobacco. - Ebola Screening: : Patient negative for fever greater than or equal to 101.5 degrees Fahrenheit, and additional compatible Ebola Virus Disease symptoms Patient denies exposure to infectious person Patient denies travel to an Ebola-affected area in the 21 days before illness onset No symptoms or risks identified at this time. ROS: 02/06 00:54 All other systems are negative. gs Exam: 00:54 Head/Face: Normocephalic, atraumatic. Eyes: Pupils equal round and reactive to light, gs extra-ocular motions intact. Lids and lashes normal. Conjunctiva and sclera are non-icteric and not injected. Cornea within normal limits. Periorbital areas with no swelling, redness, or edema. ENT: Nares patent. No nasal discharge, no septal abnormalities noted. Tympanic membranes are normal and external auditory canals are clear. Oropharynx with no redness, swelling, or masses, exudates, or evidence of obstruction, uvula midline. Mucous membranes moist. Neck: Trachea midline, no thyromegaly or masses palpated, and no cervical lymphadenopathy. Supple, full range of motion without nuchal rigidity, or vertebral point tenderness. No Meningismus. Chest/axilla: Normal chest wall appearance and motion. Nontender with no deformity. No lesions are appreciated. Cardiovascular: Regular rate and rhythm with a normal S1 and S2. No gallops, murmurs, or rubs. Normal PMI, no JVD. No pulse deficits. Respiratory: Lungs have equal breath sounds bilaterally, clear to auscultation and percussion. No rales, rhonchi or wheezes noted. No increased work of breathing, no retractions or nasal flaring. 00:54 Back: No spinal tenderness. No costovertebral tenderness. Full range of motion. Skin: Warm, dry with normal turgor. Normal color with no rashes, no lesions, and no evidence of cellulitis. MS/ Extremity: Pulses equal, no cyanosis. Neurovascular intact. Full, normal range of motion. Neuro: Awake and alert, GCS 15, oriented to person, place, time, and situation. Cranial nerves II-XII grossly intact. Motor strength 5/5 in all extremities. Sensory grossly intact. Cerebellar exam normal. Normal gait. 00:54 Constitutional: The patient appears alert, awake. 00:54 Abdomen/GI: Palpation: moderate abdominal tenderness, in all quadrants, rebound tenderness, is not appreciated. Vital Signs: 02/05 19:00 BP 158 / 101; Pulse 92; Resp 18; Temp 98.6; Pulse Ox 98% on R/A; Weight 113.4 kg; Pain sg 8/10; MDM: 19:59 Patient medically screened. 02/06 00:54 Differential diagnosis: bowel obstruction, diverticulitis, gastritis, gastroesophageal gs reflux disease. Data reviewed: vital signs, nurses notes, lab test result(s), radiologic studies. Counseling: I had a detailed discussion with the patient and/or guardian regarding: the historical points, exam findings, and any diagnostic results supporting the discharge/admit diagnosis, the need for further work-up and treatment in the hospital. Physician consultation: Win Guy MD and will see patient in inpatient room, would like admission per Dr. Neelima Becker MD. 02/05 20:06 Order name: Basic Metabolic Panel; Complete Time: 22:33 02/05 20:06 Order name: CBC with Diff; Complete Time: 22:33 gs 02/05 20:06 Order name: Hepatic Function; Complete Time: 22:33 gs 02/05 20:06 Order name: Lipase; Complete Time: 22:33 gs 02/05 23:07 Order name: Comprehensive Metabolic Panel EDMS 02/05 23:07 Order name: Comprehensive Metabolic Panel EDMS 02/05 23:07 Order name: Lipase EDMS 02/05 23:07 Order name: Lipase EDMS 02/05 23:07 Order name: Magnesium EDMS 02/05 23:07 Order name: Magnesium EDMS 02/05 23:07 Order name: Phosphorus EDMS 02/05 23:07 Order name: Phosphorus EDMS 02/05 23:07 Order name: Protime (+INR) EDMS 02/05 23:08 Order name: CBC with Automated Diff EDMS 02/05 20:06 Order name: IV Saline Lock 02/05 20:06 Order name: Labs collected and sent 02/05 20:54 Order name: CT Abd/Pelvis - Without Cont 02/05 23:08 Order name: CONS Physician Consult; Complete Time: 00:15 EDMS 02/05 23:08 Order name: NPO; Complete Time: 00:15 EDMS 02/05 23:08 Order name: CBC with Automated Diff EDPR 02/05 23:08 Order name: Protime (+INR) EDMS 02/05 23:08 Order name: PTT, Activated Partial Thromb EDMS 02/05 23:08 Order name: PTT, Activated Partial Thromb EDMS 02/05 23:08 Order name: Abdomen Acute Series EDMS 02/05 23:08 Order name: Abdomen Acute Series EDMS 02/05 22:48 Order name: NG Tube: LIWS; Complete Time: 00:14 gs Administered Medications: 02/05 20:20 CANCELLED (Duplicate Order): NS 0.45 % with KCl 20 mEq/L 1000 ml IV at 125 ml/hr once gs 21:28 Drug: Zofran 4 mg Route: IVP; Site: left antecubital; la1 21:53 Follow up: Response: No adverse reaction la1 21:28 Drug: fentaNYL (PF) 50 mcg Route: IVP; Site: left antecubital; la1 21:53 Follow up: Response: No adverse reaction; Pain is decreased la1 21:29 Drug: NS 0.9% 1000 ml Route: IV; Rate: 125 ml/hr; Site: left antecubital; la1 23:58 Drug: morphine 4 mg Route: IVP; Site: left antecubital; jl3 02/06 00:13 Follow up: Response: No adverse reaction; Pain is decreased la1 Disposition: 02/05/19 22:55 Hospitalization ordered by Neelima Becker for Inpatient Admission. Preliminary diagnosis is Other intestinal obstruction. - Bed requested for Telemetry/MedSurg (Inpatient). - Status is Inpatient Admission. lt1 - Condition is Stable. - Problem is new. - Symptoms have improved. UTI on Admission? No Critical care time excluding procedures: 00:54 Critical care time: Bedside Care: 10 minutes, Consultation: 10 minutes, Family Intervention: 10 minutes. Total time: 30 minutes Signatures: Dispatcher [employer] EDMS Cj Brunner RN RN sg Bam Padgett RN RN la1 Jeremiah Worthington RN RN jl3 Rakesh Romano MD MD Gwen Larry 2 Gi Rubio lt1 Corrections: (The following items were deleted from the chart) 02/05 20:20 20:07 NS 0.45 % with KCl 20 mEq/L 1000 ml IV at 125 ml/hr once ordered. [facility] 23:30 22:55 Hospitalization Ordered by Neelima Becker MD for Inpatient Admission. Preliminary mw2 diagnosis is Other intestinal obstruction. Bed requested for Telemetry/MedSurg (Inpatient). Status is Inpatient Admission. Condition is Stable. Problem is new. Symptoms have improved. UTI on Admission? No. gs 02/06 00:44 02/05 23:30 02/05/2019 22:55 Hospitalization Ordered by Neelima Becker MD for Inpatient lt1 Admission. Preliminary diagnosis is Other intestinal obstruction. Bed requested for Telemetry/MedSurg (Inpatient). Status is Inpatient Admission. Condition is Stable. Problem is new. Symptoms have improved. UTI on Admission? No. mw2
--- NOTE | 2019-02-05 22:56 | ER ---
Nurse's Notes [facility] Name: Anish Leon Age: 68 yrs Sex: Male : 1950 Arrival Date: 02/05/2019 Time: 18:53 Bed 24 Private MD: Sonny Moncada T Diagnosis: Other intestinal obstruction Presentation: 02/05 18:59 Presenting complaint: Patient states: Abd pain that started around noon today, reports sg having a large BM today, has a hx of pancreatitis and divertiulitis, had a large steak dinner last night. Transition of care: patient was not received from another setting of care. Onset of symptoms was February 05, 2019. Risk Assessment: Do you want to hurt yourself or someone else? Patient reports no desire to harm self or others. Initial Sepsis Screen: Does the patient meet any 2 criteria? HR > 90 bpm. Does the patient have a suspected source of infection? Yes: Acute abdominal pain. Care prior to arrival: None. 18:59 Method Of Arrival: Ambulatory sg 18:59 Acuity: DESHAWN 3 sg Triage Assessment: 22:43 General: Appears uncomfortable, obese, unkempt, Behavior is cooperative, anxious. Pain: jl3 Complains of pain in abdomen. Historical: - Allergies: 19:01 Zoloft; sg - PMHx: 19:01 Diabetes - NIDDM; Hypertension; neuron pain; Pancreatitis; prostate problems; sg - PSHx: 19:01 right knee amputation; Cholecystectomy; Appendectomy; splenectomy; sg - Immunization history:: Adult Immunizations up to date. - Social history:: Smoking status: Patient/guardian denies using tobacco. - Ebola Screening: : Patient negative for fever greater than or equal to 101.5 degrees Fahrenheit, and additional compatible Ebola Virus Disease symptoms Patient denies exposure to infectious person Patient denies travel to an Ebola-affected area in the 21 days before illness onset No symptoms or risks identified at this time. Screenin:43 Abuse screen: none noted. Nutritional screening: No deficits noted. Tuberculosis jl3 screening: No symptoms or risk factors identified. Fall Risk None identified. Assessment: 19:53 Pain: Complains of pain in epigastric area, umbilical area, right upper quadrant and jl3 left upper quadrant Pain currently is 6 out of 10 on a pain scale. Neuro: No deficits noted. Cardiovascular: No deficits noted. Respiratory: No deficits noted. GI: Bowel sounds present X 4 quads. Abd is soft Abdomen is tender to palpation X 4 quads. : No deficits noted. EENT: No deficits noted. Derm: Wound noted right upper quadrant and left upper quadrant Wound is Surgical wound x1 to anterior abd.; Pt states r/t bowel resection r/t diverticulitis, splenectomy. Musculoskeletal: Amputation of right leg. 19:56 General: Pt states epigastric pain since noon today. States hx SBO in 2017. . jl3 Vital Signs: 19:00 BP 158 / 101; Pulse 92; Resp 18; Temp 98.6; Pulse Ox 98% on R/A; Weight 113.4 kg; Pain sg 8/10; ED Course: 18:53 Patient arrived in ED. as 18:53 Sonny Moncada MD is Private Physician. as 19:00 Triage completed. sg 19:02 Arm band placed on. sg 19:42 Rakesh Romano MD is Attending Physician. gs 19:42 Jeremiah Worthington RN is Primary Nurse. jl3 21:15 Initial lab(s) drawn, by me, sent to lab. Inserted 18 gauge 10 cm midline to left upper fc basilic vein on first attempt. Line with good blood return and flushes well. 21:54 CT Abd/Pelvis - Without Cont In Process Unspecified. EDMS 22:44 Patient has correct armband on for positive identification. jl3 22:50 Neelima Becker MD is Hospitalizing Provider. gs Administered Medications: 20:20 CANCELLED (Duplicate Order): NS 0.45 % with KCl 20 mEq/L 1000 ml IV at 125 ml/hr once gs 21:28 Drug: Zofran 4 mg Route: IVP; Site: left antecubital; la1 21:53 Follow up: Response: No adverse reaction la1 21:28 Drug: fentaNYL (PF) 50 mcg Route: IVP; Site: left antecubital; la1 21:53 Follow up: Response: No adverse reaction; Pain is decreased la1 21:29 Drug: NS 0.9% 1000 ml Route: IV; Rate: 125 ml/hr; Site: left antecubital; la1 23:58 Drug: morphine 4 mg Route: IVP; Site: left antecubital; jl3 02/06 00:13 Follow up: Response: No adverse reaction; Pain is decreased la1 Outcome: 02/05 22:55 Decision to Hospitalize by Provider. cally 02/06 00:12 Admitted to Med/surg accompanied by tech, via stretcher, room 213, with chart, Report mw called to Holly Jurado RN Condition: good 00:44 Patient left the ED. lt1 Signatures: Dispatcher [employer] EDMS Fozia Magallon RN RN Cj Brunner RN RN Brenda Askew RN RN fc Martinez, Amelia as Attema, Lee, RN RN la1 Jeremiah Worthington RN RN jl3 Rakesh Romano MD MD gs Tran, Leah lt1
[2019-02-05] MEDS ORDERED: MAGNESIUM HYDROXIDE 8% 30 ML PO PRN (23:02)
[2019-02-05] MEDS ORDERED: ONDANSETRON 4 MG/2 ML VIAL IV PRN (23:02)
[2019-02-05] MEDS ORDERED: HYDROMORPHONE HCL 1 MG/ML INJ IV PRN (23:02)
[2019-02-05] MEDS: NA CHLORIDE 0.9% 1,000 ML IV SCH (23:45)
[2019-02-06] MEDS ORDERED: MORPHINE 4 MG/ML SYR ONE (00:03)
[2019-02-06 01:01] VITALS: BMI 33.9
[2019-02-06] MEDS: METRONIDAZOLE 500mg IVPB 500 MG/100 ML BAG IV SCH ×5 (01:28→23:51)
[2019-02-06] MEDS: Levofloxacin500mg IV 500 MG/100 ML BAG IV SCH ×2 (01:29→23:51)
[2019-02-06] MEDS: ACETAMINOPHEN 500 MG TAB PO PRN ×2 (01:30→10:36)
[2019-02-06 04:04] LABS: Urine Appearance CLEAR; Urine Bilirubin NEGATIVE (NEG); Urine Blood NEGATIVE (NEG); Urine Color YELLOW; Urine Glucose NEGATIVE (NEG); Urine Protein NEGATIVE (NEG); Urine pH 6.5 (5.0-7.0)
[2019-02-06 04:12] LABS: Urine Microscopic Reflex NO UMIC
[2019-02-06 05:46] LABS: Absolute Lymphocytes (CBC) 4.4 K/uL (0.7-4.9); Absolute Monocytes 2.2 K/uL (0.1-1.3); Absolute Neutrophil 8.9 K/uL (1.8-8.0); Basophils % 1.4 % (0-1.3); Eosinophils % 1.4 % (0-4.4); Hematocrit 40.7 % (39.6-49.0); Lymphocytes % 27.8 % (15.3-44.8); MPV 9.2 fL (7.6-11.3); Monocytes % 13.6 % (3.3-12.3); RBC Red Blood Cell Count 4.56 M/uL (4.33-5.43)
[2019-02-06 05:53] LABS: Protime INR 1.06
[2019-02-06 06:03] LABS: Albumin 3.1 g/dL (3.4-5.0); Phosphorus 3.3 mg/dL (2.5-4.9); Potassium 4.4 mmol/L (3.5-5.1); Protein, Total 6.8 g/dL (6.4-8.2)
--- NOTE | 2019-02-06 07:06 | P.HP ---
Certification for Inpatient Patient admitted to: Inpatient With expected LOS: >2 Midnights Patient will require the following post-hospital care: None Practitioner: I am a practitioner with admitting privileges, knowledge of patient current condition, hospital course, and medical plan of care. Services: Services provided to patient in accordance with Admission requirements found in Title 42 Section 412.3 of the Code of Federal Regulations Patient History Date of Service: 02/05/19 Reason for admission: Bowel obstruction History of Present Illness: Patient is a 68-year-old gentleman who came to the hospital with abdominal pain. Patient was worked up and found have a small-bowel obstruction. Patient had a large bowel movement prior to coming into the ER. However, he was feeling distended and having some abdominal pain initially. CT scan revealed a small-bowel obstruction. General surgery was consulted and patient had NG tube placed. Will be admitting because patient has numerous medical issues. Patient has diabetes and hypertension along with psoriasis and osteoarthritis. Patient is a right above knee amputation. Patient be admitted to the hospital for further inpatient treatment. Allergies sertraline [From Zoloft] Allergy (Verified 02/06/19 02:09) Hives/Rash Home Medications: Amlodipine [Norvasc*] 5 mg PO DAILY 02/06/19 Aripiprazole [Abilify] 2 mg PO DAILY 02/06/19 Carvedilol [Coreg*] 12.5 mg PO BID 02/06/19 Cyclobenzaprine [Flexeril*] 10 mg PO TIDP PRN 02/06/19 Escitalopram [Lexapro*] 20 mg PO DAILY 02/06/19 Gabapentin 2 cap PO BEDTIME 02/06/19 Irbesartan [Avapro] 300 mg PO DAILY 02/06/19 Metformin HCl [Glucophage*] 500 mg PO BID 02/06/19 Simvastatin 20 mg PO BEDTIME 02/06/19 - Past Medical/Surgical History Has patient received pneumonia vaccine in the past: Yes Diabetic: Yes -: HTN -: Diabetes mellitus -: psoriasis -: arthritis -: neuropathy -: cholecystectomy -: spleenectomy -: lumbar surgery -: left knee replacement -: 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 -: appendectomy -: hemorrhoid surgery -: colectomy - Family History Mother Medical History: Heart disease Father Medical History: Lung disease grandfather Medical History: Other (see notes) Notes: liver cirrhosis - Social History Smoking Status: Former smoker Alcohol use: No CD- Drugs: No Place of Residence: Home Review of Systems 10-point ROS is otherwise unremarkable Physical Examination - Vital Signs Temperature: 97.9 F Blood Pressure: 150/91 Pulse: 105 Respirations: 20 Pulse Ox (%): 96 - Physical Exam General: Alert, In no apparent distress, Oriented x3 HEENT: Atraumatic, PERRLA, Mucous membr. moist/pink, EOMI, Sclerae nonicteric Neck: Supple, 2+ carotid pulse no bruit, No LAD, Without JVD or thyroid abnormality Respiratory: Clear to auscultation bilaterally, Normal air movement Cardiovascular: Regular rate/rhythm, Normal S1 S2, No murmurs Gastrointestinal: Soft and benign, Non-distended, Absent bowel sounds, Tenderness Musculoskeletal: No clubbing, No swelling, No tenderness, Other (Right AKA) Integumentary: No rashes Neurological: Normal gait, Normal speech, Normal strength at 5/5 x4 extr, Normal tone, Sensation intact, Cranial nerves 3-12 intact, Normal affect Lymphatics: No axilla or inguinal lymphadenopathy - Studies Laboratory Data (last 24 hrs) 02/05/19 21:15: WBC 16.5 H, Hgb 13.9, Hct 43.2, Plt Count 423 H 02/05/19 21:15: Sodium 135 L, Potassium 4.7, BUN 20 H, Creatinine 1.16, Glucose 199 H, Total Bilirubin 0.5, AST 18, ALT 24, Alkaline Phosphatase 130 H, Lipase 90 Assessment & Plan - Problems (Diagnosis) (1) Small bowel obstruction Current Visit: Yes Status: Acute (2) Chronic pain disorder Onset Date: 12/29/17 Current Visit: No Status: Chronic (3) Depression Onset Date: 12/29/17 Current Visit: No Status: Chronic Qualifiers: (4) Diabetes mellitus Onset Date: 01/09/15 Current Visit: No Status: Chronic Qualifiers: (5) Hypertension Onset Date: 12/29/17 Current Visit: No Status: Chronic Qualifiers: - Plan Plan: 1. IV hydration 2. Pain control 3. Abdominal film 4. Continue with antibiotics 5. NG tube to suction 6. Surgery consultation 7. GI and DVT prophylaxis Discharge Plan: Home Plan to discharge in: Greater than 2 days - Advance Directives Does patient have a Living Will: No Does patient have a Durable POA for Healthcare: Yes - Code Status/Comfort Care Code Status Assessed: Yes Code Status: Full Code Critical Care: No Time Spent Managing PTS Care (In Minutes): 50
--- NOTE | 2019-02-06 07:56 | RAD REPORT ---
EXAM DESCRIPTION: RAD - Abdomen W Erect - 02/06/2019 6:58 am CLINICAL HISTORY: Abdominal pain FINDINGS: A nasogastric tube has been placed with its tip in the gastric fundus laterally. It is difficult to assess the small bowel as it is mostly fluid-filled on the recent CAT scan contain ing little air. However, the dilated small bowel loops have probably diminished in size. Free air is not seen beneath the diaphragm
[2019-02-06] MEDS: ARIPIPRAZOLE 2 MG PO SCH (09:00)
[2019-02-06] MEDS: ENOXAPARIN 30 MG/0.3 ML SQ SCH (09:06)
[2019-02-06] MEDS: IRBESARTAN 150 MG TAB PO SCH (09:06)
[2019-02-06] MEDS: ESCITALOPRAM 20 MG TAB PO SCH (09:07)
[2019-02-06] MEDS: AMLODIPINE 5 MG TAB PO SCH (09:07)
[2019-02-06] MEDS: CARVEDILOL 12.5 MG TAB PO SCH ×2 (09:08→21:08)
[2019-02-06] MEDS: NA CHLORIDE 0.9% 1,000 ML IV SCH ×3 (09:09→21:12)
--- NOTE | 2019-02-06 11:28 | RAD REPORT ---
EXAM DESCRIPTION: CT - Abdomen Pelvis Wo Contrast - 02/05/2019 10:16 pm CLINICAL HISTORY: Abdominal pain. COMPARISON: None. TECHNIQUE: CT scan of the abdomen and pelvis without IV contrast. This exam was performed according to our departmental dose-optimization program, which includes automated exposure control, adjustment of the mA and/or kV according to patient size and/or use of iterative reconstruction technique. FINDINGS: The lung bases are clear. No pleural or pericardial effusions. There is no hiatal hernia. 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 The liver, pancreas, adrenal glands, and kidney s are normal. Multiple simple cysts are seen in both kidneys. Surgical coils are seen in the region o f the splenic artery. The pelvic organs are normal. There are multiple dilated loops of small bowel measuring up to 4 cm in the mid abdomen. There is an apparent transition point in the anterior abdomen, the region of surgical sutures. This may be second michael to adhesions. The small bowel distal to this region are not dilated. Surgical sutures and clips are seen in the region of the sigmoid colon. There are scattered colonic d iverticula without surrounding inflammatory changes. The appendix is not seen. No intraperitoneal osmar e fluid or free air is seen. The aorta is normal caliber and contains atherosclerotic calcifications. There is a chronic deformity of the L3 vertebral body. Prior right L5-S1 posterior fusion. IMPRESSION: Small bowel obstruction with a transition point in the anterior abdomen in the region of surgical sutures. The etiology may be secondary to adhesions at this level. Electronically signed by: Ian Howell MD 02/05/2019 10:05 PM CDT Due to temporary technical issues with the PACS/Fluency reporting system, reports are being signed by the in house radiologist as a courtesy to ensure prompt reporting. The interpreting radiologist is f jimyly responsible for the content of the report.
[2019-02-06] MEDS ORDERED: MINERAL OIL 30 ML UCUP GT ONE (14:44)
--- NOTE | 2019-02-06 14:45 | P.CNS ---
Date of Consult: 02/06/19 PC: This 63-year-old male presents emergency room with severe abdominal pain for diagnosis and treatment. HPC: Patient is been feeling unwell recently. Now all presented emergency was severe abdominal pain, nausea and vomiting. Has had it for the last 3 4 days but yesterday it became extremely bad in fact he could no longer stand it PMH: The diabetes, hypertension, psoriasis PSHx: Previous appendectomy, cholecystectomy, splenectomy SOC: Allergic to sertraline SYS REVIEW: No cough, wheeze, shortness of breath. No chest pain or palpitations. States he has been recently and good health O/E awake alert comfortable at the moment HEENT: Nasogastric tube in place, and no abdominal distress Chest: Chest movement equal bile ABD: Soft nontender LOCO: Intact DATA: CT scan initially showed possible small-bowel obstruction. IMPRESSION: Clinically much improved today PLAN: I will place some mineral oil via his nasogastric tube. Acute we will leave it in place for approximately 2 hr then Dc NG tube. He may be started on some clear liquids this evening. Will re-evaluate in a.m..
--- NOTE | 2019-02-06 16:31 | P.PN ---
Subjective Date of Service: 02/06/19 Chief Complaint: Bowel obstruction Subjective: Improving (Patient feeling better. No significant abdominal pain or nausea vomiting noted.) Physical Examination - Vital Signs Temperature: 97.8 F Blood Pressure: 125/76 Pulse: 77 Respirations: 18 Pulse Ox (%): 95 - Physical Exam General: Alert, In no apparent distress, Oriented x3, Cooperative HEENT: Atraumatic Neck: Supple Respiratory: Clear to auscultation bilaterally, Normal air movement Cardiovascular: Normal pulses, Regular rate/rhythm Gastrointestinal: Normal bowel sounds, Soft and benign, Non-distended, No tenderness, No masses, No rebound, No guarding Musculoskeletal: No erythema, No tenderness, No warmth Integumentary: No tenderness/swelling, No erythema, No warmth, No cyanosis Neurological: Normal speech, Normal strength at 5/5 x4 extr, Normal tone, Normal affect - Studies Laboratory Data (last 24 hrs) 02/05/19 21:15: WBC 16.5 H, Hgb 13.9, Hct 43.2, Plt Count 423 H 02/05/19 21:15: Sodium 135 L, Potassium 4.7, BUN 20 H, Creatinine 1.16, Glucose 199 H, Total Bilirubin 0.5, AST 18, ALT 24, Alkaline Phosphatase 130 H, Lipase 90 Medications List Reviewed: Yes Assessment & Plan Discharge Plan: Home Plan to discharge in: 48 Hours Physician Review Additional Text: Impression: Partial small bowel obstruction Diabetes mellitus type 2 HTN Plan: Partial small bowel obstruction: Patient has improved. Case discussed with surgery. Surgery will try clear liquids. If improved NG tube can be removed. Recommend ambulation. Will provide incentive spirometer. Diabetes mellitus type 2: Will monitor Accu-Cheks. HTN: Restart home medication. Time Spent Managing Pts Care (In Minutes): 55
[2019-02-06] MEDS ORDERED: D50W 25 GM/50 ML SYRINGE IV PRN (16:33)
[2019-02-06] MEDS ORDERED: GLUCAGON 1 MG/VIAL IM PRN (16:33)
[2019-02-06] MEDS ORDERED: GABAPENTIN 300 MG CAP PO SCH (21:00)
[2019-02-06] MEDS ORDERED: ATORVASTATIN 10 MG TAB PO SCH (21:00)
[2019-02-06] MEDS: INSULIN -REGULAR HUMAN 50 UNIT/0.5 ML ML SQ SCH (21:08)
[2019-02-07 03:30] VITALS: O2SAT 95
[2019-02-07 04:30] LABS: Absolute Lymphocytes (CBC) 3.8 K/uL (0.7-4.9); Absolute Monocytes 1.8 K/uL (0.1-1.3); Absolute Neutrophil 7.5 K/uL (1.8-8.0); Basophils % 0.5 % (0-1.3); Eosinophils % 4.3 % (0-4.4); Hematocrit 39.5 % (39.6-49.0); Lymphocytes % 27.7 % (15.3-44.8); MPV 9.2 fL (7.6-11.3); Monocytes % 13.3 % (3.3-12.3)
[2019-02-07 04:38] LABS: Bilirubin Total 0.5 mg/dL (0.2-1.0); Magnesium 1.8 mg/dL (1.8-2.4); Potassium 4.2 mmol/L (3.5-5.1); Protein, Total 6.4 g/dL (6.4-8.2)
[2019-02-07] MEDS: METRONIDAZOLE 500mg IVPB 500 MG/100 ML BAG IV SCH (05:05)
[2019-02-07] MEDS: NA CHLORIDE 0.9% 1,000 ML IV SCH (05:42)
[2019-02-07] MEDS: INSULIN -REGULAR HUMAN 50 UNIT/0.5 ML ML SQ SCH (07:30)
[2019-02-07] MEDS: ARIPIPRAZOLE 2 MG PO SCH (09:00)
[2019-02-07] MEDS: ENOXAPARIN 30 MG/0.3 ML SQ SCH (09:02)
[2019-02-07] MEDS: AMLODIPINE 5 MG TAB PO SCH (09:03)
[2019-02-07] MEDS: IRBESARTAN 150 MG TAB PO SCH (09:03)
[2019-02-07] MEDS: ESCITALOPRAM 20 MG TAB PO SCH (09:04)
[2019-02-07] MEDS: CARVEDILOL 12.5 MG TAB PO SCH (09:04)
[2019-02-07 09:05] VITALS: BP 175/86
--- NOTE | 2019-02-07 09:36 | P.DS ---
Admission Date: 02/05/19 Discharge Date: 02/07/19 Primary Care Provider: Dr. Monacda; Surgery-Dr. Guy Disposition: ROUTINE DISCHARGE Discharge Condition: GOOD Reason for Admission: Bowel obstruction Consultations: Surgery-Dr. Guy Procedures: CT scan: FINDINGS: The lung bases are clear. No pleural or pericardial effusions. There is no hiatal hernia. 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 The liver, pancreas, adrenal glands, and kidneys are normal. Multiple simple cysts are seen in both kidneys. Surgical coils are seen in the region of the splenic artery. The pelvic organs are normal. There are multiple dilated loops of small bowel measuring up to 4 cm in the mid abdomen. There is an apparent transition point in the anterior abdomen, the region of surgical sutures. This may be secondary to adhesions. The small bowel distal to this region are not dilated. Surgical sutures and clips are seen in the region of the sigmoid colon. There are scattered colonic diverticula without surrounding inflammatory changes. The appendix is not seen. No intraperitoneal free fluid or free air is seen. The aorta is normal caliber and contains atherosclerotic calcifications. There is a chronic deformity of the L3 vertebral body. Prior right L5-S1 posterior fusion. IMPRESSION: Small bowel obstruction with a transition point in the anterior abdomen in the region of surgical sutures. The etiology may be secondary to adhesions at this level. Medical Problem List: Abdominal pain secondary to Partial small bowel obstruction Hypertension Diabetes mellitus type 2 Hyperlipidemia Diabetic neuropathy Depression with anxiety Obesity, BMI 33.9 Brief History of Present Illness: 68-year-old male presented to emergency room with abdominal pain. Patient found to have small bowel obstruction. NG tube was placed. Patient admitted for further evaluation. Patient reports history of small-bowel obstruction in the past. Hospital Course: Patient presented with small-bowel obstruction. Patient seen and evaluated by surgery. No surgical intervention was required. Small-bowel obstruction likely partial as this resolved. At discharge patient able to tolerate GI soft diet. Patient without any significant pain. At discharge he will continue with Cipro 500 mg 1 pill twice daily and Flagyl 500 mg 3 times a day for 7 days. Recommend to follow up with surgery in 1-2 weeks to follow up this hospitalization. Patient may require colonoscopy in the future to further evaluate. Patient will continue with a GI soft diet. Patient with hypertension. This remained stable. At discharge he will continue with Norvasc 5 mg daily, carvedilol 12.5 mg 1 pill twice daily, and Avapro 300 mg daily. Recommend to maintain blood pressures less 150/80. Further adjustment can be done by his PCP. Patient with diabetes mellitus type 2. Patient will continue with metformin 500 mg 1 pill twice daily. Recommend to maintain blood sugars less 140 fasting and less than 200 after meals. Further adjustment can be done by his PCP. Patient with history of hyperlipidemia. Patient will continue with Zocor 20 mg daily. Patient with depression with anxiety. At discharge he will continue with Abilify 2 mg daily and Lexapro 20 mg daily. Further adjustment can be done by his PCP. Patient with diabetic neuropathy. Patient continue with gabapentin 300 mg 2 pills at bedtime and Flexeril as needed for muscle spasm. Patient with obesity. Lifestyle modifications addressed. Vital Signs/Physical Exam: Temp Pulse Resp BP Pulse Ox 97.9 F 85 16 175/86 H 95 02/07/19 04:00 02/07/19 09:04 02/07/19 04:00 02/07/19 09:04 02/07/19 04:00 General: Alert, In no apparent distress, Oriented x3, Cooperative HEENT: Atraumatic Neck: Supple Respiratory: Clear to auscultation bilaterally, Normal air movement Cardiovascular: Normal pulses, Regular rate/rhythm Gastrointestinal: Normal bowel sounds, Soft and benign, Non-distended, No tenderness, No masses, No rebound, No guarding Musculoskeletal: No erythema, No tenderness, No warmth Integumentary: No tenderness/swelling, No erythema, No warmth, No cyanosis Neurological: Normal speech, Normal strength at 5/5 x4 extr, Normal tone, Normal affect Laboratory Data at Discharge: WBC 13.9 K/uL (4.3-10.9) H 02/07/19 03:52 Hgb 12.5 g/dL (13.6-17.9) L 02/07/19 03:52 Hct 39.5 % (39.6-49.0) L 02/07/19 03:52 Plt Count 387 K/uL (152-406) 02/07/19 03:52 PT 12.5 SECONDS (9.5-12.5) 02/06/19 05:32 INR 1.06 02/06/19 05:32 APTT 28.7 SECONDS (24.3-36.9) 02/06/19 05:32 Sodium 139 mmol/L (136-145) 02/07/19 03:52 Potassium 4.2 mmol/L (3.5-5.1) 02/07/19 03:52 BUN 15 mg/dL (7-18) 02/07/19 03:52 Creatinine 0.93 mg/dL (0.55-1.3) 02/07/19 03:52 Glucose 190 mg/dL (74-106) H 02/07/19 03:52 Phosphorus 3.3 mg/dL (2.5-4.9) 02/06/19 05:32 Magnesium 1.8 mg/dL (1.8-2.4) 02/07/19 03:52 Total Bilirubin 0.5 mg/dL (0.2-1.0) 02/07/19 03:52 AST 44 U/L (15-37) H D 02/07/19 03:52 ALT 61 U/L (12-78) 02/07/19 03:52 Alkaline Phosphatase 124 U/L (45-117) H 02/07/19 03:52 Lipase 961 U/L (73-393) H 02/06/19 05:32 Home Medications: Amlodipine [Norvasc*] 5 mg PO DAILY 02/06/19 Aripiprazole [Abilify] 2 mg PO DAILY 02/06/19 Carvedilol [Coreg*] 12.5 mg PO BID 02/06/19 Cyclobenzaprine [Flexeril*] 10 mg PO TIDP PRN 02/06/19 Escitalopram [Lexapro*] 20 mg PO DAILY 02/06/19 Gabapentin 2 cap PO BEDTIME 02/06/19 Irbesartan [Avapro] 300 mg PO DAILY 02/06/19 Metformin HCl [Glucophage*] 500 mg PO BID 02/06/19 Simvastatin 20 mg PO BEDTIME 02/06/19 Levofloxacin [Levaquin] 500 mg PO DAILY #7 tablet 02/07/19 metroNIDAZOLE [Flagyl] 500 mg PO Q8H #21 tablet 02/07/19 New Medications: Levofloxacin [Levaquin] 500 mg PO DAILY #7 tablet metroNIDAZOLE [Flagyl] 500 mg PO Q8H #21 tablet Patient Discharge Instructions: 1. Patient will need to follow with his PCP in 1 week to follow up this hospitalization. 2. Patient presented with abdominal pain secondary to partial small bowel obstruction. This resolved. Patient seen and evaluated by surgery. No surgical intervention required. At discharge patient has tolerated his diet. Patient continue with a GI soft diet. Patient will continue with Levaquin 500 mg daily and Flagyl 500 mg 3 times a day for 7 days. Recommend to follow up with surgery in 1-2 weeks to follow up this hospitalization. 3. Patient with hypertension. Patient will continue with Norvasc 5 mg daily, carvedilol 12.5 mg 1 pill twice daily, and Avapro 300 mg daily. 4. Patient with diabetes. Patient will continue with metformin 500 mg 1 pill twice daily. 5. Patient with depression and anxiety. Patient will continue with Lexapro 20 mg daily and Abilify 2 mg daily. 6. Patient with diabetic neuropathy. Patient may continue with gabapentin 300 mg 2 pills at bedtime along with Flexeril as needed. 7. Patient with hyperlipidemia. Patient continue with Zocor 20 mg daily. Diet: GI soft ADA diet Activity: Ad zen Time spent managing pt's care (in minutes): 55
[2019-02-07 09:49] VITALS: TEMP 98.1
[2019-02-07] MEDS ORDERED: MELATONIN 3 MG TABLET PO ONE (22:01)
== END 2019-02-07 09:53 | disposition home or self-care (01) | DRG 390 ==
LOC: ER 18:52 → ERHOLD 23:03 → 2ND 02-06 00:24
PROVIDERS: ADMIT Hospitalist; ATTEND Family Medicine
PROC: 0D9670Z Drainage of Stomach with Drainage Device, Via Natural or Artificial Opening (ICD-10-PCS; principal; 2019-02-05)
DX: K56.600 Partial intestinal obstruction, unspecified as to cause (principal); E66.9 Obesity, unspecified; Z68.33 Body mass index [BMI] 33.0-33.9, adult; F32.9 Major depressive disorder, single episode, unspecified; F41.9 Anxiety disorder, unspecified; E11.40 Type 2 diabetes mellitus with diabetic neuropathy, unspecified; E78.5 Hyperlipidemia, unspecified; I10 Essential (primary) hypertension; Z79.84 Long term (current) use of oral hypoglycemic drugs; L40.9 Psoriasis, unspecified; M19.90 Unspecified osteoarthritis, unspecified site; Z87.891 Personal history of nicotine dependence; G89.29 Other chronic pain
CPT/HCPCS: 36415; 74019; 74176; 80048; 80053; 80076; 81003; 82962; 83690; 83735; 84100; 85025; 85610; 85730; 96374; 96375; 99285; J1170; J1650; J2405; J3010; J7030

== ENCOUNTER 2019-05-15 12:52 | Emergency (ER) | payer OTHER ==
[2019-05-15 13:50] LABS: Absolute Lymphocytes (CBC) 3.8 K/uL (0.7-4.9); Basophils % 0.8 % (0-1.3); Eosinophils % 5.6 % (0-4.4); Hematocrit 39.2 % (39.6-49.0); Lymphocytes % 30.1 % (15.3-44.8); MPV 9.1 fL (7.6-11.3); Monocytes % 13.5 % (3.3-12.3)
[2019-05-15 14:10] LABS: Potassium 4.3 mmol/L (3.5-5.1)
--- NOTE | 2019-05-15 14:31 | RAD REPORT ---
EXAM DESCRIPTION: US - Extremity Venous Uni Ltd - 05/15/2019 2:12 pm CLINICAL HISTORY: SWELLING Leg swelling and edema. COMPARISON: Extremity Venous Uni Ltd dated 12/31/2017 FINDINGS: Left lower extremity venous system was interrogated with Doppler technique. Normal flow, c ompressibility and augmentation was noted. There is no DVT present. IMPRESSION: No evidence of left lower extremity deep venous thrombosis.
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
--- NOTE | 2019-05-15 15:44 | ER ---
Nurse's Notes [facility] Name: Anish Leon Age: 68 yrs Sex: Male : 1950 Arrival Date: 05/15/2019 Time: 12:56 Bed 14 Private MD: Sonny Moncada T Diagnosis: Edema, unspecified Presentation: 05/15 12:57 Presenting complaint: Patient states: 3 days ago, i started noticing my L leg started hj to swell; denies SOB; denies trauma to the area; R leg amputee;. Transition of care: patient was not received from another setting of care. Onset of symptoms was May 15, 2019. Risk Assessment: Do you want to hurt yourself or someone else? Patient reports no desire to harm self or others. Initial Sepsis Screen: Does the patient meet any 2 criteria? No. Patient's initial sepsis screen is negative. Does the patient have a suspected source of infection? No. Patient's initial sepsis screen is negative. Care prior to arrival: None. 12:57 Method Of Arrival: Ambulatory 12:57 Acuity: DESHAWN 3 hj Historical: - Allergies: 12:59 Zoloft; hj - PMHx: 12:59 Diabetes - NIDDM; Hypertension; neuron pain; Pancreatitis; prostate problems; hj - PSHx: 12:59 right knee amputation; Cholecystectomy; Appendectomy; splenectomy; hj - Immunization history:: Adult Immunizations unknown. - Social history:: Smoking status: Patient/guardian denies using tobacco. - Ebola Screening: : No symptoms or risks identified at this time. Screenin:26 Abuse screen: Denies threats or abuse. Denies injuries from another. Nutritional ph screening: No deficits noted. Tuberculosis screening: No symptoms or risk factors identified. Fall Risk No fall in past 12 months (0 pts). Secondary diagnosis (15 points) impaired mobility, IV access (20 points). Ambulatory Aid- Crutches/Cane/Walker (15 pts). Gait- Impaired (20 pts.). Mental Status- Oriented to own ability (0 pts). Total Jackson Fall Scale indicates High Risk Score (45 or more points). Fall prevention measures have been instituted. Side Rails Up X 2 Placed Close to Nursing Station Frequent Obs/Assessments Occuring Family Present and informed to notify staff if the need to leave the bedside As available patient and family educated on Fall Prevention Program and Strategies. Assessment: 13:30 General: Appears in no apparent distress. comfortable, obese, well groomed, Behavior is ph calm, cooperative, appropriate for age, Reports fatigue for Denies fever, feeling ill. Pain: Complains of pain in left foot. Neuro: Level of Consciousness is awake, alert, obeys commands, Oriented to person, place, time, situation. 13:30 Cardiovascular: Reports fatigue, Denies chest pain, lightheadedness, shortness of ph breath, Capillary refill < 3 seconds in left toes Patient's skin is warm and dry. Edema is 1+ to left lower thigh, left knee and left midcalf is 2+ to left ankle and left foot. Respiratory: Airway is patent Respiratory effort is even, unlabored. Derm: Skin is intact, is healthy with good turgor, Skin is pink, warm \T\ dry. Musculoskeletal: Amputation of right leg. Circulation, motion, and sensation intact. 14:30 Reassessment: Patient appears in no apparent distress at this time. Patient and/or ph family updated on plan of care and expected duration. Pain level reassessed. Patient is alert, oriented x 3, equal unlabored respirations, skin warm/dry/pink. Pt resting quietly, awaiting lab and US results, SO at bedside. 16:06 Reassessment: Patient appears in no apparent distress at this time. Patient and/or ph family updated on plan of care and expected duration. Pain level reassessed. Patient is alert, oriented x 3, equal unlabored respirations, skin warm/dry/pink. Pt d/c home w/ SO. Vital Signs: 13:00 BP 125 / 73; Pulse 78; Resp 18; Temp 97.7(O); Pulse Ox 96% on R/A; Weight 132.45 kg; Height 6 ft. 0 in. (182.88 cm); Pain 4/10; 14:30 BP 134 / 78; Pulse 74; Resp 18; Pulse Ox 97% on R/A; ph 16:08 BP 128 / 78; Pulse 71; Resp 18; Temp 98.0; Pulse Ox 99% on R/A; ph 13:00 Body Mass Index 39.60 (132.45 kg, 182.88 cm) ED Course: 12:56 Patient arrived in ED. mr 12:56 Sonny Moncada MD is Private Physician. mr 12:59 Triage completed. hj 13:00 Arm band placed on right wrist. hj 13:05 Yanelis Posada, RN is Primary Nurse. ph 13:06 Tony Viera MD is Attending Physician. kdr 13:40 Inserted saline lock: 22 gauge in left forearm, using aseptic technique. Blood ss collected. 14:12 US Extremity Venous Unilateral Ltd In Process Unspecified. EDMS 14:28 Patient has correct armband on for positive identification. Bed in low position. Call ph light in reach. Side rails up X2. Pulse ox on. NIBP on. Door closed. Noise minimized. 15:34 Sonny Moncada MD is Referral Physician. kdr 16:07 No provider procedures requiring assistance completed. IV discontinued, intact, ph bleeding controlled, No redness/swelling at site. Pressure dressing applied. Administered Medications: 16:05 Drug: Lasix 20 mg Route: IVP; Site: right forearm; ph 16:05 Follow up: Response: No adverse reaction; Medication administered at discharge. ph Outcome: 15:35 Discharge ordered by . kdr 16:07 Discharged to home via wheelchair, with significant other. ph 16:07 Condition: good 16:07 Discharge instructions given to patient, significant other, Instructed on discharge instructions, follow up and referral plans. medication usage, Demonstrated understanding of instructions, follow-up care, medications, Prescriptions given X 1. 16:08 Patient left the ED. ph Signatures: Dispatcher [employer] EDOH Tony Viera MD MD [facility] ERNadja johnson mr Ann Adame RN RN Yanelis Posada RN RN Don Beverly RN RN Corrections: (The following items were deleted from the chart) 13:03 13:00 Pulse 78bpm; Resp 18bpm; Pulse Ox 96% RA; Temp 97.7F Oral; 132.45 kg; Height 6 hj ft. 0 in.; BMI: 39.6; Pain 4/10; hj
[2019-05-15] MEDS ORDERED: FUROSEMIDE 20 MG/ 2ML VIAL ONE (16:03)
[2019-05-15 16:38] VITALS: BP 128/78; TEMP 98; O2SAT 99
== END 2019-05-15 16:08 | disposition home or self-care (01) ==
LOC: ER 12:52
DX: R60.9 Edema, unspecified (principal); I10 Essential (primary) hypertension; Z88.5 Allergy status to narcotic agent; Z89.611 Acquired absence of right leg above knee
CPT/HCPCS: 87040 ×2; 85025; 80048; 36415; 93971; 96374; 99284; J1940

== ENCOUNTER 2019-06-09 11:30 | Inpatient (IN) | payer OTHER ==
[2019-06-09 13:39] LABS: Absolute Lymphocytes (CBC) 3.2 K/uL (0.7-4.9); Basophils % 0.8 % (0-1.3); Hematocrit 42.2 % (39.6-49.0); Lymphocytes % 29.8 % (15.3-44.8); MPV 9.4 fL (7.6-11.3); RBC Red Blood Cell Count 4.65 M/uL (4.33-5.43)
[2019-06-09] MEDS ORDERED: ONDANSETRON 4 MG/2 ML VIAL ONE (13:44)
[2019-06-09] MEDS ORDERED: FENTANYL CITR 100 MCG/2 ML ONE (13:44)
[2019-06-09] MEDS ORDERED: NA CHLORIDE 0.9% 1,000 ML ONE (13:44)
[2019-06-09 13:49] LABS: Albumin 3.5 g/dL (3.4-5.0); Bilirubin Direct 0.3 mg/dL (0-0.2); Bilirubin Total 0.8 mg/dL (0.2-1.0); Potassium 4.3 mmol/L (3.5-5.1); Protein, Total 7.5 g/dL (6.4-8.2)
--- NOTE | 2019-06-09 14:41 | RAD REPORT ---
EXAM DESCRIPTION: CT - Abdomen Pelvis W Contrast - 06/09/2019 2:11 pm CLINICAL HISTORY: Abdominal pain with nausea. COMPARISON: none. TECHNIQUE: Computed axial tomography of the abdomen pelvis was obtained. 100 cc Isovue-300 was admin istered intravenously. Oral contrast was not requested which limits evaluation of bowel. All CT scans are performed using dose optimization technique as appropriate and may include automated exposure control or mA/KV adjustment according to patient size. FINDINGS: Fatty liver Cholecystectomy. Absent spleen. 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 The pancreatic head is mildly enlarged when compared to 2016. Mild stranding is present within the pe ripancreatic fat. The pancreatic duct is dilated. Splenic arterial embolization coils in place. There is no evidence of diverticulitis. Postsurgical changes involve the sigmoid. Postsurgical change s involve spine Small renal cysts IMPRESSION: Peripancreatic stranding and dilatation of the pancreatic duct. Mild dilatation of the p ancreatic head. This all may represent a combination of acute and chronic pancreatitis. A subtle panc reatic head neoplasm is a another consideration.
[2019-06-09] MEDS ORDERED: MORPHINE 4 MG/ML SYR ONE ×2 (14:46→16:53)
--- NOTE | 2019-06-09 15:44 | ER ---
Nurse's Notes [facility] Name: Anish Leon Age: 68 yrs Sex: Male : 1950 Arrival Date: 06/09/2019 Time: 11:34 Bed 26 Private MD: Sonny Moncada T Diagnosis: Acute pancreatitis Presentation: 06/09 11:55 Presenting complaint: Patient states: upper abd pain radiating to back that began 2 aa5 days ago. Pt denies nausea/vomiting. Transition of care: patient was not received from another setting of care. Onset of symptoms was May 2019. Risk Assessment: Do you want to hurt yourself or someone else? Patient reports no desire to harm self or others. Initial Sepsis Screen: Does the patient meet any 2 criteria? No. Patient's initial sepsis screen is negative. Does the patient have a suspected source of infection? No. Patient's initial sepsis screen is negative. Care prior to arrival: None. 11:55 Acuity: DESHAWN 3 aa5 11:55 Method Of Arrival: Wheelchair aa5 Historical: - Allergies: 11:58 Zoloft; aa5 - Home Meds: 14:10 amlodipine 10 mg tab 1 tab once daily [Active]; aspirin 81 mg Oral chew 1 tab once mg2 daily [Active]; Belbuca buccal [Active]; carvedilol 12.5 mg Oral tab 1 tab 2 times per day [Active]; cyclobenzaprine 10 mg Oral tab 1 tab 3 times per day [Active]; Flomax 0.4 mg Oral cp24 1 cap once daily [Active]; gabapentin 300 mg Oral cap 1 cap 3 times per day [Active]; gabapentin 300 mg Oral cap 1 cap 3 times per day [Active]; irbesartan 300 mg Oral tab 1 tab once daily [Active]; metformin 500 mg Oral tab 1 tab 2 times per day [Active]; metoprolol tartrate 100 mg Oral tab 1 tab 2 times per day [Active]; Stool Softener Oral [Active]; Trintellix 10 mg Oral tab 1 tab once daily [Active]; - PMHx: 11:58 Diabetes - NIDDM; Hypertension; neuron pain; Pancreatitis; prostate problems; aa5 - PSHx: 11:58 right knee amputation; Cholecystectomy; Appendectomy; splenectomy; aa5 - Immunization history:: Flu vaccine is up to date. - Social history:: Smoking status: Patient/guardian denies using tobacco. - Ebola Screening: : No symptoms or risks identified at this time. Screenin:06 Abuse screen: Denies threats or abuse. Denies injuries from another. Nutritional ca1 screening: No deficits noted. Tuberculosis screening: No symptoms or risk factors identified. Fall Risk IV access (20 points). Ambulatory Aid- Crutches/Cane/Walker (15 pts). Gait- Impaired (20 pts.). Assessment: 13:06 General: Appears in no apparent distress. uncomfortable, Behavior is calm, cooperative, ca1 appropriate for age. Pain: Complains of pain in abdomen Pain radiates to back Pain currently is 9 out of 10 on a pain scale. Quality of pain is described as sharp, shooting, Pain began COUPLE DAYS AGO. Neuro: Level of Consciousness is awake, alert, obeys commands, Oriented to person, place, time, situation. Cardiovascular: Heart tones S1 S2 present Capillary refill < 3 seconds Patient's skin is warm and dry. Pulses are all present. Rhythm is sinus rhythm. Respiratory: Airway is patent Respiratory effort is even, unlabored, Respiratory pattern is regular, symmetrical, Breath sounds are clear bilaterally. GI: Abdomen is round non-distended, Bowel sounds present X 4 quads. Abd is soft and non tender X 4 quads. : No deficits noted. No signs and/or symptoms were reported regarding the genitourinary system. EENT: No deficits noted. No signs and/or symptoms were reported regarding the EENT system. Derm: Skin is intact, is healthy with good turgor, Skin is pink, warm \T\ dry. Musculoskeletal: Amputation of right leg. Circulation, motion, and sensation intact. Capillary refill < 3 seconds, Range of motion: intact in all extremities. 13:06 GI: Reports constipation, nausea, last BM was couple days ago. Patient currently denies ca1 vomiting. 14:19 Reassessment: Patient appears in no apparent distress at this time. Patient and/or ca1 family updated on plan of care and expected duration. Pain level reassessed. Patient is alert, oriented x 3, equal unlabored respirations, skin warm/dry/pink. Pt back from CT scan. Requested for pain meds. Notified provider. 15:44 Reassessment: Patient and/or family updated on plan of care and expected duration. Pain ca1 level reassessed. Patient is alert, oriented x 3, equal unlabored respirations, skin warm/dry/pink. 16:40 Reassessment: Patient appears in no apparent distress at this time. Patient and/or ca1 family updated on plan of care and expected duration. Pain level reassessed. Patient is alert, oriented x 3, equal unlabored respirations, skin warm/dry/pink. 17:47 Reassessment: Patient appears in no apparent distress at this time. Patient is alert, ca1 oriented x 3, equal unlabored respirations, skin warm/dry/pink. Vital Signs: 11:58 BP 114 / 74; Pulse 108; Resp 18 S; Temp 99.0(TE); Pulse Ox 95% on R/A; Weight 94.8 kg aa5 (R); Height 6 ft. 0 in. (182.88 cm) (R); Pain 9/10; 13:06 BP 144 / 92; Pulse 96; Resp 18 S; Pulse Ox 95% on R/A; Pain 9/10; ca1 14:19 BP 117 / 80; Pulse 94; Resp 17; Temp 98.4(O); Pulse Ox 95% on R/A; ca1 15:44 BP 147 / 99; Pulse 95; Resp 20; Pulse Ox 94% on R/A; ca1 16:40 BP 157 / 88; Pulse 89; Resp 15 S; Temp 98.4(O); Pulse Ox 97% on R/A; ca1 17:40 BP 116 / 87; Pulse 94; Resp 18; Temp 99; Pulse Ox 95% on R/A; mg2 11:58 Body Mass Index 28.35 (94.80 kg, 182.88 cm) aa5 ED Course: 11:34 Patient arrived in ED. rg4 11:35 Sonny Moncada MD is Private Physician. rg4 11:56 Triage completed. aa5 11:56 Arm band placed on. aa5 12:05 EKG completed in triage. Results shown to . aa5 13:06 Tiffanie Do, RN is Primary Nurse. ca1 13:06 Patient has correct armband on for positive identification. Bed in low position. Call ca1 light in reach. Side rails up X2. front desk monitor on. Pulse ox on. NIBP on. 13:06 No provider procedures requiring assistance completed. ca1 13:11 Lj Weir NP is [facility]. pm1 13:11 Rakesh Romano MD is Attending Physician. pm1 14:05 Inserted saline lock: 20 gauge in right forearm, using aseptic technique. Blood mg2 collected. 14:12 CT Abd/Pelvis - IV Contrast Only In Process Unspecified. EDMS 17:24 Augie Soler MD is Hospitalizing Provider. dw 17:39 Patient admitted, IV remains in place. mg2 Administered Medications: 13:38 Drug: Zofran 4 mg Route: IVP; Site: right forearm; mg2 14:54 Follow up: Response: No adverse reaction; Nausea is decreased ca1 13:38 Drug: NS 0.9% 1000 ml Route: IV; Rate: 100 ml/hr; Site: right forearm; mg2 17:42 Follow up: Response: No adverse reaction; IV Status: Infusion continued upon admission; mg2 IV Intake: 400ml 13:39 Drug: fentaNYL (PF) 50 mcg Route: IVP; Site: right forearm; mg2 14:30 Follow up: Response: No adverse reaction; Pain is unchanged, physician notified ca1 14:31 Drug: morphine 4 mg Route: IVP; Site: right antecubital; ca1 17:42 Follow up: Response: No adverse reaction mg2 16:39 Drug: morphine 4 mg Route: IVP; Site: right antecubital; ca1 17:42 Follow up: Response: No adverse reaction; Marked relief of symptoms mg2 Intake: 17:42 IV: 400ml; Total: 400ml. mg2 Outcome: 15:44 Decision to Hospitalize by Provider. pm1 17:40 Admitted to Med/surg accompanied by tech, via stretcher, room 228, with chart, Report mg2 called to AMANDO Harrison 17:40 Condition: stable 17:40 Instructed on the need for admit, Demonstrated understanding of instructions. 17:48 Patient left the ED. ca1 Signatures: Dispatcher [employer] EDMS Francia Merino RN RN dw Janny Pro RN RN aa5 Lj Weir NP VICE PRESIDENT TAX pm1 Katia Fair rg4 Sai Kirkland RN RN mg2 Tiffanie Do RN RN ca1 Corrections: (The following items were deleted from the chart) 11:59 11:58 BP 114 / 74; Pulse 108bpm; Resp 18bpm; Spontaneous; Pulse Ox 95% RA; Temp 99.0F aa5 Temporal; aa5
--- NOTE | 2019-06-09 15:45 | EDPHYS ---
Physician Documentation [facility] Name: Anish Leon Age: 68 yrs Sex: Male : 1950 Arrival Date: 06/09/2019 Time: 11:34 Bed 26 Private MD: Sonny Moncada T ED Physician Rakesh Romano HPI: 06/09 13:36 This 68 yrs old Male presents to ER via Wheelchair with complaints of pm1 Abdominal Pain. 13:36 The patient presents with abdominal pain. The patient presents with abdominal pain that pm1 is diffuse. Onset: The symptoms/episode began/occurred 3 day(s) ago. The symptoms do not radiate. Associated signs and symptoms: Pertinent negatives: nausea, vomiting, and diarrhea, chest pain, diarrhea, dysuria, fever, shortness of breath. The symptoms are described as achy. Modifying factors: The symptoms are alleviated by nothing, the symptoms are aggravated by nothing. Severity of pain: in the emergency department the pain is actually worse. The patient has experienced similar episodes in the past, a few times. The patient has not recently seen a physician, the patient's primary care provider is Dr. Moncada. Historical: - Allergies: 11:58 Zoloft; aa5 - Home Meds: 14:10 amlodipine 10 mg tab 1 tab once daily [Active]; aspirin 81 mg Oral chew 1 tab once mg2 daily [Active]; Belbuca buccal [Active]; carvedilol 12.5 mg Oral tab 1 tab 2 times per day [Active]; cyclobenzaprine 10 mg Oral tab 1 tab 3 times per day [Active]; Flomax 0.4 mg Oral cp24 1 cap once daily [Active]; gabapentin 300 mg Oral cap 1 cap 3 times per day [Active]; gabapentin 300 mg Oral cap 1 cap 3 times per day [Active]; irbesartan 300 mg Oral tab 1 tab once daily [Active]; metformin 500 mg Oral tab 1 tab 2 times per day [Active]; metoprolol tartrate 100 mg Oral tab 1 tab 2 times per day [Active]; Stool Softener Oral [Active]; Trintellix 10 mg Oral tab 1 tab once daily [Active]; - PMHx: 11:58 Diabetes - NIDDM; Hypertension; neuron pain; Pancreatitis; prostate problems; aa5 - PSHx: 11:58 right knee amputation; Cholecystectomy; Appendectomy; splenectomy; aa5 - Immunization history:: Flu vaccine is up to date. - Social history:: Smoking status: Patient/guardian denies using tobacco. - Ebola Screening: : No symptoms or risks identified at this time. ROS: 13:36 Constitutional: Negative for fever, chills, and weight loss, Cardiovascular: Negative pm1 for chest pain, palpitations, and edema, Respiratory: Negative for shortness of breath, cough, wheezing, and pleuritic chest pain. 13:36 Back: Negative for injury and pain, : Negative for injury, bleeding, discharge, and swelling, MS/Extremity: Negative for injury and deformity, Skin: Negative for injury, rash, and discoloration, Neuro: Negative for headache, weakness, numbness, tingling, and seizure. 13:36 Abdomen/GI: Positive for abdominal pain, constipation 3 days ago, Negative for nausea, vomiting, and diarrhea. Exam: 13:36 Constitutional: This is a well developed, well nourished patient who is awake, alert, pm1 and in no acute distress. Head/Face: Normocephalic, atraumatic. Chest/axilla: Normal chest wall appearance and motion. Nontender with no deformity. No lesions are appreciated. Cardiovascular: Regular rate and rhythm with a normal S1 and S2. No gallops, murmurs, or rubs. Normal PMI, no JVD. No pulse deficits. Respiratory: Lungs have equal breath sounds bilaterally, clear to auscultation and percussion. No rales, rhonchi or wheezes noted. No increased work of breathing, no retractions or nasal flaring. 13:36 Back: No spinal tenderness. No costovertebral tenderness. Full range of motion. Skin: Warm, dry with normal turgor. Normal color with no rashes, no lesions, and no evidence of cellulitis. 13:36 MS/ Extremity: Pulses equal, no cyanosis. Neurovascular intact. Full, normal range of motion. 13:36 Abdomen/GI: Inspection: obese Bowel sounds: normal, Palpation: soft, mild abdominal tenderness, in the abdomen diffusely, mass, is not appreciated, rebound tenderness, is not appreciated. 13:36 Neuro: Orientation: is normal, Motor: is normal, moves all fours. Vital Signs: 11:58 BP 114 / 74; Pulse 108; Resp 18 S; Temp 99.0(TE); Pulse Ox 95% on R/A; Weight 94.8 kg aa5 (R); Height 6 ft. 0 in. (182.88 cm) (R); Pain 9/10; 13:06 BP 144 / 92; Pulse 96; Resp 18 S; Pulse Ox 95% on R/A; Pain 9/10; ca1 14:19 BP 117 / 80; Pulse 94; Resp 17; Temp 98.4(O); Pulse Ox 95% on R/A; ca1 15:44 BP 147 / 99; Pulse 95; Resp 20; Pulse Ox 94% on R/A; ca1 16:40 BP 157 / 88; Pulse 89; Resp 15 S; Temp 98.4(O); Pulse Ox 97% on R/A; ca1 17:40 BP 116 / 87; Pulse 94; Resp 18; Temp 99; Pulse Ox 95% on R/A; mg2 11:58 Body Mass Index 28.35 (94.80 kg, 182.88 cm) aa5 MDM: 13:12 Patient medically screened. pm1 15:38 Data reviewed: vital signs. Data interpreted: Pulse oximetry: on room air is 95 %. pm1 Interpretation: normal. Counseling: I had a detailed discussion with the patient and/or guardian regarding: the historical points, exam findings, and any diagnostic results supporting the discharge/admit diagnosis, lab results, radiology results, the need for further work-up and treatment in the hospital. 15:51 Physician consultation: Augie Soler MD was called at 15:51, was contacted at 15:51, pm1 regarding admission, patient's condition, and will see patient. 06/09 13:16 Order name: Basic Metabolic Panel; Complete Time: 14:07 pm1 06/09 13:16 Order name: CBC with Diff; Complete Time: 14:07 pm1 06/09 13:16 Order name: Creatinine for Radiology; Complete Time: 14:07 pm1 06/09 13:16 Order name: Hepatic Function; Complete Time: 14:07 pm1 06/09 13:16 Order name: Lipase; Complete Time: 14:07 pm1 06/09 13:19 Order name: CT Abd/Pelvis - IV Contrast Only; Complete Time: 15:28 pm1 06/09 13:16 Order name: IV Saline Lock; Complete Time: 13:27 pm1 06/09 13:16 Order name: Labs collected and sent; Complete Time: 13:27 pm1 06/09 15:44 Order name: EKG Electrocardiogram [facility] 06/09 13:19 Order name: NPO; Complete Time: 13:38 pm1 Administered Medications: 13:38 Drug: Zofran 4 mg Route: IVP; Site: right forearm; mg2 14:54 Follow up: Response: No adverse reaction; Nausea is decreased ca1 13:38 Drug: NS 0.9% 1000 ml Route: IV; Rate: 100 ml/hr; Site: right forearm; mg2 17:42 Follow up: Response: No adverse reaction; IV Status: Infusion continued upon admission; mg2 IV Intake: 400ml 13:39 Drug: fentaNYL (PF) 50 mcg Route: IVP; Site: right forearm; mg2 14:30 Follow up: Response: No adverse reaction; Pain is unchanged, physician notified ca1 14:31 Drug: morphine 4 mg Route: IVP; Site: right antecubital; ca1 17:42 Follow up: Response: No adverse reaction mg2 16:39 Drug: morphine 4 mg Route: IVP; Site: right antecubital; ca1 17:42 Follow up: Response: No adverse reaction; Marked relief of symptoms mg2 Disposition: 06/09/19 15:44 Hospitalization ordered by Augie Soler for Inpatient Admission. Preliminary diagnosis is Acute pancreatitis. - Bed requested for Telemetry/MedSurg (Inpatient). - Status is Inpatient Admission. ca1 - Condition is Stable. - Problem is new. - Symptoms have improved. UTI on Admission? No Addendum: 06/10/2019 18:00 Co-signature as Attending Physician, Rakesh Romano MD. g s Signatures: Dispatcher [employer] [facility] Francia Merino RN RN dw Janny Pro, RN RN aa5 Lj Weir, DEPUTY SHERIFF K9 HANDLER DEPUTY SHERIFF K9 HANDLER pm1 Rakesh Romano MD MD Sai Kirkland RN RN mg2 Tiffanie Do RN RN ca1 Corrections: (The following items were deleted from the chart) 06/09 17:24 15:44 Hospitalization Ordered by for Inpatient Admission. Preliminary diagnosis is dw Acute pancreatitis. Bed requested for Telemetry/MedSurg (Inpatient). Status is Inpatient Admission. Condition is Stable. Problem is new. Symptoms have improved. UTI on Admission? No. pm1 17:48 17:24 06/09/2019 15:44 Hospitalization Ordered by Augie Soler MD for Inpatient ca1 Admission. Preliminary diagnosis is Acute pancreatitis. Bed requested for Telemetry/MedSurg (Inpatient). Status is Inpatient Admission. Condition is Stable. Problem is new. Symptoms have improved. UTI on Admission? No. dw
[2019-06-09] MEDS: INSULIN -REGULAR HUMAN 50 UNIT/0.5 ML ML SQ SCH ×2 (18:17→21:00)
[2019-06-09 18:22] VITALS: BMI 36.0
[2019-06-09] MEDS: NA CHLORIDE 0.9% 1,000 ML IV SCH (19:16)
[2019-06-09] MEDS: ENOXAPARIN 40 MG/0.4 ML SQ SCH (21:04)
[2019-06-09] MEDS: MORPHINE 4 MG/ML SYR IV PRN (21:29)
[2019-06-10] MEDS: MORPHINE 4 MG/ML SYR IV PRN ×5 (01:34→20:29)
[2019-06-10] MEDS: NA CHLORIDE 0.9% 1,000 ML IV SCH ×2 (04:52→14:34)
[2019-06-10 06:04] LABS: Absolute Lymphocytes (CBC) 3.1 K/uL (0.7-4.9); Basophils % 0.7 % (0-1.3); Hematocrit 39.4 % (39.6-49.0); Lymphocytes % 29.9 % (15.3-44.8); MPV 9.2 fL (7.6-11.3); RBC Red Blood Cell Count 4.34 M/uL (4.33-5.43)
[2019-06-10 06:14] LABS: Albumin 3.3 g/dL (3.4-5.0); Bilirubin Total 1.3 mg/dL (0.2-1.0); Potassium 4.1 mmol/L (3.5-5.1); Protein, Total 7.2 g/dL (6.4-8.2)
[2019-06-10] MEDS: INSULIN -REGULAR HUMAN 50 UNIT/0.5 ML ML SQ SCH ×4 (07:30→20:28)
[2019-06-10] MEDS ORDERED: FENTANYL CITR 100 MCG/2 ML IV ONE (07:48)
[2019-06-10] MEDS: ENOXAPARIN 40 MG/0.4 ML SQ SCH (08:02)
[2019-06-10 08:17] LABS: Blood Morphology Comment NOT SEEN (NOT SEEN); Platelet Estimate ADEQ
--- NOTE | 2019-06-10 08:25 | P.HP ---
Certification for Inpatient Patient admitted to: Inpatient With expected LOS: >2 Midnights Patient will require the following post-hospital care: None Practitioner: I am a practitioner with admitting privileges, knowledge of patient current condition, hospital course, and medical plan of care. Services: Services provided to patient in accordance with Admission requirements found in Title 42 Section 412.3 of the Code of Federal Regulations Patient History Date of Service: 06/09/19 Reason for admission: acute pancreatitis History of Present Illness: Patient is a 68-year-old gentleman who came into the hospital with abdominal discomfort. His workup in the emergency room revealed acute pancreatitis. Patient denies drinking nor has he been told of any gallstones. He has had a cholecystectomy. His symptoms have gradually worsened over the last 2-3 days. He was made to come to the ER with findings as mentioned. Unknown etiology to the pancreatitis. Patient is on a Glucagon-like peptide-1 (GLP-1) agonist. These are known to cause pancreatitis. We will check lipid profile. We will manage with IV fluids and pain control. Patient will be admitted to the hospital for further workup Allergies sertraline [From Zoloft] Allergy (Verified 02/06/19 02:09) Hives/Rash Home Medications: Amlodipine [Norvasc*] 5 mg PO DAILY 02/06/19 Aripiprazole [Abilify] 2 mg PO DAILY 02/06/19 Carvedilol [Coreg*] 12.5 mg PO BID 02/06/19 Cyclobenzaprine [Flexeril*] 10 mg PO PRN PRN 02/06/19 Escitalopram [Lexapro*] 20 mg PO DAILY 02/06/19 Gabapentin 2 cap PO BEDTIME 02/06/19 Simvastatin 20 mg PO BEDTIME 02/06/19 Metformin HCl [Glucophage XR OR ER] 1 tab PO BID 06/09/19 Semaglutide [Ozempic] 0.5 mg SQ SEECOM 06/09/19 Valsartan 1 tab PO DAILY 06/09/19 Furosemide 1 tab PO DAILY 06/10/19 - Past Medical/Surgical History Has patient received pneumonia vaccine in the past: Yes Diabetic: Yes -: HTN -: Diabetes mellitus -: psoriasis -: arthritis -: neuropathy -: cholecystectomy -: spleenectomy -: lumbar surgery -: left knee replacement -: 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 -: appendectomy -: hemorrhoid surgery -: colectomy - Family History Mother Medical History: Heart disease Father Medical History: Lung disease grandfather Medical History: Other (see notes) Notes: liver cirrhosis - Social History Smoking Status: Never smoker Alcohol use: No CD- Drugs: No Caffeine use: Yes Place of Residence: Home Review of Systems 10-point ROS is otherwise unremarkable Physical Examination - Vital Signs Temperature: 97.0 F Blood Pressure: 129/66 Pulse: 91 Respirations: 18 Pulse Ox (%): 94 - Physical Exam General: Alert, In no apparent distress, Oriented x3 HEENT: Atraumatic, PERRLA, Mucous membr. moist/pink, EOMI, Sclerae nonicteric Neck: Supple, 2+ carotid pulse no bruit, No LAD, Without JVD or thyroid abnormality Respiratory: Clear to auscultation bilaterally, Normal air movement Cardiovascular: Regular rate/rhythm, Normal S1 S2, No murmurs Gastrointestinal: Normal bowel sounds, Soft and benign, Non-distended, No tenderness, No rebound, No guarding, Tenderness Musculoskeletal: No clubbing, No swelling, No tenderness, Other ( Prior amputation of the rt leg) Integumentary: No rashes Neurological: Normal gait, Normal speech, Normal strength at 5/5 x4 extr, Normal tone, Sensation intact, Cranial nerves 3-12 intact, Normal affect Lymphatics: No axilla or inguinal lymphadenopathy - Studies Laboratory Data (last 24 hrs) 06/09/19 13:25: Creatinine 1.08 06/09/19 13:25: WBC 10.7, Hgb 13.8, Hct 42.2, Plt Count 395 06/09/19 13:25: Sodium 135 L, Potassium 4.3, BUN 15, Creatinine 1.05, Glucose 225 H, Total Bilirubin 0.8, AST 126 H, ALT 227 H, Alkaline Phosphatase 149 H, Lipase 715 H Assessment & Plan - Problems (Diagnosis) (1) Drug-induced pancreatitis Current Visit: Yes Status: Acute (2) Abdominal pain Onset Date: 01/09/15 Current Visit: No Status: Acute (3) Anemia Onset Date: 12/29/17 Current Visit: No Status: Acute Qualifiers: Anemia type: other cause Other causes of anemia: other cause, not classified Qualified Code(s): D64.89 - Other specified anemias (4) Bowel obstruction Current Visit: No Status: Acute (5) Nausea & vomiting Current Visit: No Status: Acute (6) Diabetes mellitus Onset Date: 01/09/15 Current Visit: No Status: Chronic Qualifiers: Diabetes mellitus type: type 2 (7) Hypertension Onset Date: 12/29/17 Current Visit: No Status: Chronic Qualifiers: Hypertension type: essential hypertension (8) Osteomyelitis Current Visit: No Status: Chronic Qualifiers: Osteomyelitis type: other chronic Laterality: left - Plan Plan: 1. IV fluids and IV antibiotics only if evidence of infection such as necrosis 2. Monitor lipase level closely 3. GI consultation & cardiology consultation may be needed 4. Pain control 5. patient may need an ERCP as an outpatient 6. Repeat abdominal film if pain worsens to rule out perforation 7. Will need to hold glucagon like peptide agonist 8. GI and DVT prophylaxis Discharge Plan: Home Plan to discharge in: Greater than 2 days - Advance Directives Does patient have a Living Will: Yes Does patient have a Durable POA for Healthcare: Yes - Code Status/Comfort Care Code Status Assessed: Yes Code Status: Full Code Critical Care: No Time Spent Managing PTS Care (In Minutes): 50
[2019-06-10] MEDS: ONDANSETRON 4 MG/2 ML VIAL IV PRN ×2 (09:23→14:41)
--- NOTE | 2019-06-10 09:37 | EKG ---
Test Date: 2019-06-09 Test Time: 12:03:41 Clinical Documentation Specialist: AVINASH MEASUREMENT RESULTS: Intervals: Rate: 106 MO: 214 QRSD: 110 QT: 344 QTc: 456 [place]: P: 61 MO: 214 QRS: 10 T: 77 INTERPRETIVE STATEMENTS: Sinus tachycardia with 1st degree AV block Low voltage QRS Borderline ECG Compared to ECG 01/09/2015 03:37:56 First degree AV block now present Low QRS voltage now present Sinus rhythm no longer present T-wave abnormality no longer present Electronically Signed On 06-10-19 09:35:54 CDT by Dae Plaza
[2019-06-10] MEDS ORDERED: HYDROMORPHONE HCL 2 MG/ML inj IV ONE (14:30)
[2019-06-10] MEDS ORDERED: Ringers Lactate 1,000 ML IV ONE (14:34)
--- NOTE | 2019-06-10 15:33 | CON ---
Date of Consultation: 06/10/2019 Reason For Consultation: Acute pancreatitis of unknown etiology. History Of Present Illness: The patient is a 68-year-old white male with history of diabetes, hypert ension, obesity, hyperlipidemia, psoriasis, arthritis, neuropathy, cholecystectomy, and splenectomy. The patient presented to hospital with midepigastric pain, severe. The patient states his pain bega n on Wednesday. The patient states he was in usual state of health and was babysitting his granddaug hter, fell asleep on a bed, which was high off the ground, he states, and fell off the bed while asle ep and sustained trauma to his mid back at approximately 2 p.m. Later on that night at approximately 11 p.m., pain began. Of note, patient is taking Ozempic, which is a glucagon-like peptide-1 agonist for his diabetes, which is known to cause pancreatitis as well. He is status post cholecystectomy. Has never had any gallstones to his knowledge, none per chart review either. He denies any alcohol and otherwise has been doing well. He denies any melena, hematochezia, hematemesis, coffee-ground em esis, hematuria, dysuria, polydipsia. 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 Medications: At home include Norvasc, Abilify, Coreg, Flexeril, Lexapro, Neurontin, Zocor, metformin , valsartan, Lasix, and Ozempic 0.5 mg subcu every q.week. Social History: He is , with approximately 3 children, at least 2 sons and 1 daughter. He qu it tobacco in 2017, was a heavy smoker before that. No alcohol. Family History: Father of COPD. Mother of COPD and myocardial infarction. Review of Systems: The patient has midepigastric pain radiating to his mid back with nausea and vomiting. States he has had no emesis today on medication, Zofran. He denies any melena, hematochezia, hematemesis, coffee- ground emesis, hematuria, dysuria, polydipsia, chest pain, shortness of breath, seizure, syncope, fev ers, chills, night sweats, heat or cold intolerance, lower extremity edema, muscle aches, joint aches , except he does have backaches back from his fall off the bed, and back pain since the pancreatitis started as well. Physical Examination: VITAL SIGNS: The patient is 6 feet, 265 pounds. BMI of 36 kg/sq m. Temperature of 97.9 degrees Fah renheit, pulse 89, respirations 17, blood pressure 118/57, O2 saturation 94%. GENERAL: He is an obese male, lying in bed, in no acute distress except stating his back hurts with pain from his pancreatitis presumably. HEENT: Normocephalic, atraumatic. Anicteric. Pupils equal, round, and reactive to light. Extraocu lar movements intact. Oropharynx is clear. NECK: Supple. No masses. RESPIRATIONS: Clear to auscultation bilaterally. CARDIAC: Regular rate and rhythm. No gallops or rubs. ABDOMEN: Hypoactive bowel sounds. Soft, nondistended, obese. No peritoneal or Wolf sign. No henry ound. No guarding. EXTREMITIES: He has a right fsbly-rcy-lfyo amputation and left lower extremity was without edema, cy anosis, or clubbing. NEURO: He is alert and oriented x3. Able to move his left leg and upper extremities well. Laboratory Data: The patient has a white count today of 10.5 down from 10.7 yesterday, hemoglobin 13 .2, hematocrit 39, MCV of 91, platelet count 354, polys of 50%, lymphocytes 30%, monocytes 16%, eosin ophils 4%. He had a sodium of 136, potassium 4.1, chloride 104, bicarb 24, BUN of 10, creatinine of 0.9, glucose 155, calcium 8.9, total bilirubin 1.3, AST of 130, ALT of 207, alkaline phosphatase 147, total protein 7.2, albumin 3.3. Lipase on admission was 715. There is no lipase today. Imaging: CT abdomen and pelvis revealed cholecystectomy changes with peripancreatic stranding and di latation of pancreatic duct, mild dilatation of the pancreatic head. This all may represent a combin ation of acute on chronic pancreatitis. A subtle pancreatic head neoplasm is another consideration a s well. 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 Impression: 1.Acute pancreatitis. CT scan consistent with pancreatitis with edema and swelling in the head of t he pancreas. The patient has pain in the midepigastric area radiating to his mid back. Of note, the patient's pain began on Wednesday afternoon after he had fallen off his bed, which was high off the ground with trauma to his back. Pain began in the midepigastric area radiating to the back at approx imately 11 p.m. that night. The patient is also on Ozempic for the past 2 months, taking this medica tion subcu every once a week with indication that may cause pancreatitis as well, so the patient has 2 reasons to have pancreatitis. He does not have alcohol nor gallstones and is status post cholecyst ectomy many years ago, it appears. 2.History of diabetes, hypertension, hyperlipidemia, obesity, psoriasis, arthritis, neuropathy, chol ecystectomy, splenectomy, appendectomy, partial colectomy, lumbar surgery, left total knee replacemen t, 6 right total knee replacements and then a complication of methicillin-resistant Staphylococcus au reus requiring a right [id number]-[id number] amputation. Recommendations: 1.Increase IV fluids from 100 to 150. We will bolus him another liter of LR at this time. 2.Check lipase, lipid panel, and CA-19-9. 3.Keep patient n.p.o. at this time. 4.Continue p.r.n. pain medications and antiemetics. OSORIO/ALMA Voice ID: [id number] Report ID: [id number]
[2019-06-10] MEDS: Ringers Lactate 1,000 ML IV SCH ×2 (15:44→21:44)
--- NOTE | 2019-06-10 17:57 | P.PN ---
Subjective Date of Service: 06/10/19 Chief Complaint: acute pancreatitis Patient seen and examined at bedside. No family at bedside. Chart reviewed and case discussed with nursing staff. Continues to complain of epigastric pain, radiating to the back. Improved nausea and vomiting. Patient with a history of multiple bowel surgeries in the past. Denies any fevers, chills, chest pain, headache, dizziness Review of Systems 10-point ROS is otherwise unremarkable Physical Examination - Vital Signs Temperature: 97 F Blood Pressure: 142/74 Pulse: 93 Respirations: 17 Pulse Ox (%): 94 - Physical Exam General: Alert, In no apparent distress, Oriented x3, Obese HEENT: Atraumatic, PERRLA, EOMI Neck: Supple, JVD not distended Respiratory: Clear to auscultation bilaterally, Normal air movement Cardiovascular: Regular rate/rhythm, Normal S1 S2 Gastrointestinal: Normal bowel sounds, Tenderness, Rebound, Guarding Musculoskeletal: No tenderness Integumentary: No rashes Neurological: Normal speech, Normal tone, Normal affect Lymphatics: No axilla or inguinal lymphadenopathy Assessment And Plan - Current Problems (Diagnosis) (1) Drug-induced pancreatitis Current Visit: Yes Status: Acute Plan: Pancreatitis, likely secondary to ozempic vs fall with trauma to the back. - continue NPO, pain control, IV - GI consulted, recommendations appreciated. - continue to hold Ozempic Qualifiers: Chronicity: acute Acute pancreatitis complication: no infection or necrosis Qualified Code(s): K85.30 - Drug induced acute pancreatitis without necrosis or infection (2) Abdominal pain Onset Date: 01/09/15 Current Visit: No Status: Acute Qualifiers: Abdominal location: epigastric Qualified Code(s): R10.13 - Epigastric pain (3) Nausea & vomiting Current Visit: No Status: Acute (4) Diabetes mellitus Onset Date: 01/09/15 Current Visit: No Status: Chronic Qualifiers: Diabetes mellitus type: type 2 (5) Hypertension Onset Date: 12/29/17 Current Visit: No Status: Chronic Qualifiers: Hypertension type: essential hypertension - Plan DVT prophylaxis: Lovenox GI prophylaxis: Proton Diet: NPO Disposition: Pending symptomatic improvement.
[2019-06-10 21:56] LABS: Urine Appearance CLEAR; Urine Blood NEGATIVE (NEG); Urine Color DK YELLOW; Urine Glucose NEGATIVE (NEG); Urine Protein NEGATIVE (NEG)
[2019-06-10 23:20] LABS: Urine Microscopic Reflex NO UMIC
[2019-06-11] MEDS: MORPHINE 4 MG/ML SYR IV PRN ×5 (00:22→20:28)
[2019-06-11 01:34] LABS: Urine Bilirubin NEGATIVE (NEG)
[2019-06-11] MEDS: Ringers Lactate 1,000 ML IV SCH ×5 (03:51→18:59)
[2019-06-11 06:50] LABS: Absolute Lymphocytes (CBC) 3.7 K/uL (0.7-4.9); Basophils % 0.6 % (0-1.3); Hematocrit 39.1 % (39.6-49.0); Lymphocytes % 31.3 % (15.3-44.8); MPV 9.5 fL (7.6-11.3); RBC Red Blood Cell Count 4.21 M/uL (4.33-5.43)
[2019-06-11 07:02] LABS: Magnesium 1.7 mg/dL (1.8-2.4); Phosphorus 2.4 mg/dL (2.5-4.9)
[2019-06-11 07:04] LABS: Albumin 3.2 g/dL (3.4-5.0); Potassium 4.2 mmol/L (3.5-5.1)
[2019-06-11] MEDS: INSULIN -REGULAR HUMAN 50 UNIT/0.5 ML ML SQ SCH ×4 (07:30→20:28)
[2019-06-11] MEDS: ENOXAPARIN 40 MG/0.4 ML SQ SCH (08:40)
[2019-06-11] MEDS: POTASS/SODIUM PHOSPHATE 1 PKT POWD.PACK PO SCH ×6 (09:00→19:25)
[2019-06-11] MEDS ORDERED: MAGNESIUM SULFATE 1 gm IVPB 1 GM/100 ML BAG IV ONE (09:00)
--- NOTE | 2019-06-11 13:11 | P.PN ---
Subjective Date of Service: 06/11/19 Chief Complaint: acute pancreatitis Subjective: Improving (Less abdominal pain today with increased IVFs since yesterday. Lipase down from 1,278 to 411 overnight.) Review of Systems 10-point ROS is otherwise unremarkable Gastrointestinal: Abdominal Pain (improved. ) Physical Examination - Vital Signs Temperature: 97.3 F Blood Pressure: 127/75 Pulse: 86 Respirations: 94 Pulse Ox (%): 94 - Physical Exam General: Alert, In no apparent distress, Oriented x3, Cooperative HEENT: Atraumatic, Normocephalic, PERRLA, EOMI Respiratory: Normal air movement Cardiovascular: Normal pulses Gastrointestinal: Soft and benign, No rebound, No guarding, Tenderness Neurological: Normal speech, Normal strength at 5/5 x4 extr Assessment And Plan - Current Problems (Diagnosis) (1) Acute pancreatitis Current Visit: Yes Status: Acute Comment: Improved. (2) Epigastric abdominal pain Current Visit: Yes Status: Acute Comment: Improved. (3) Obesity (BMI 30-39.9) Current Visit: Yes Status: Acute (4) Diabetes mellitus Onset Date: 01/09/15 Current Visit: No Status: Chronic Qualifiers: Diabetes mellitus type: type 2 (5) Hypertension Onset Date: 12/29/17 Current Visit: No Status: Chronic Qualifiers: Hypertension type: essential hypertension - Plan REC: 1) continue IV fluids 2) allow ice chips and sips of water 3) consider PT/OT with trauma, fall out of bed
--- NOTE | 2019-06-11 14:08 | P.PN ---
Subjective Date of Service: 06/11/19 Chief Complaint: acute pancreatitis Subjective: Improving Patient seen and examined at bedside. No family at bedside. Chart reviewed and case discussed with nursing staff. Pain Improved Patient with a history of multiple bowel surgeries in the past. Denies any fevers, chills, chest pain, headache, dizziness Review of Systems 10-point ROS is otherwise unremarkable Physical Examination - Vital Signs Temperature: 97.3 F Blood Pressure: 127/75 Pulse: 86 Respirations: 94 Pulse Ox (%): 94 - Physical Exam General: Alert, In no apparent distress, Oriented x3 HEENT: Atraumatic, PERRLA, EOMI Neck: Supple, JVD not distended Respiratory: Clear to auscultation bilaterally, Normal air movement Cardiovascular: Regular rate/rhythm, Normal S1 S2 Gastrointestinal: Normal bowel sounds, Distended, Tenderness Musculoskeletal: No tenderness Integumentary: No rashes Neurological: Normal speech, Normal tone, Normal affect Lymphatics: No axilla or inguinal lymphadenopathy Assessment And Plan - Current Problems (Diagnosis) (1) Drug-induced pancreatitis Current Visit: Yes Status: Acute Plan: Pancreatitis, likely secondary to ozempic vs fall with trauma to the back. Improving symptoms - continue NPO, pain control, IV - GI consulted, recommendations appreciated. - continue to hold Ozempic Qualifiers: Chronicity: acute Acute pancreatitis complication: no infection or necrosis Qualified Code(s): K85.30 - Drug induced acute pancreatitis without necrosis or infection (2) Abdominal pain Onset Date: 01/09/15 Current Visit: No Status: Acute Qualifiers: Abdominal location: epigastric Qualified Code(s): R10.13 - Epigastric pain (3) Nausea & vomiting Current Visit: No Status: Acute (4) Diabetes mellitus Onset Date: 01/09/15 Current Visit: No Status: Chronic Qualifiers: Diabetes mellitus type: type 2 (5) Hypertension Onset Date: 12/29/17 Current Visit: No Status: Chronic Qualifiers: Hypertension type: essential hypertension - Plan DVT prophylaxis: Lovenox GI prophylaxis: Proton Diet: NPO Disposition: Pending symptomatic improvement.
[2019-06-12] MEDS: MORPHINE 4 MG/ML SYR IV PRN ×5 (00:08→20:16)
[2019-06-12] MEDS: Ringers Lactate 1,000 ML IV SCH ×5 (00:10→22:59)
[2019-06-12 06:00] LABS: Absolute Lymphocytes (CBC) 3.7 K/uL (0.7-4.9); Basophils % 0.1 % (0-1.3); Hematocrit 35.9 % (39.6-49.0); Lymphocytes % 37.3 % (15.3-44.8); MPV 9.9 fL (7.6-11.3); RBC Red Blood Cell Count 3.93 M/uL (4.33-5.43)
[2019-06-12 06:26] LABS: ALT/SGPT 144 U/L (12-78); AST/SGOT 109 U/L (15-37); Albumin 2.8 g/dL (3.4-5.0); Alkaline Phosphatase 140 U/L (45-117); BUN Blood Urea Nitrogen 8 mg/dL (7-18); Bicarbonate 25 mmol/L (21-32); Bilirubin Total 1.4 mg/dL (0.2-1.0); Glucose Level 108 mg/dL (74-106); Lipase 323 U/L (73-393); Magnesium 1.7 mg/dL (1.8-2.4); Phosphorus 2.7 mg/dL (2.5-4.9); Potassium 3.7 mmol/L (3.5-5.1); Protein, Total 6.5 g/dL (6.4-8.2); Sodium Level 137 mmol/L (136-145)
[2019-06-12] MEDS: INSULIN -REGULAR HUMAN 50 UNIT/0.5 ML ML SQ SCH ×4 (07:30→21:00)
[2019-06-12] MEDS: ENOXAPARIN 40 MG/0.4 ML SQ SCH (07:53)
[2019-06-12] MEDS ORDERED: POTASSIUM CL SA 10 MEQ TAB PO ONE (09:00)
[2019-06-12] MEDS ORDERED: MAGNESIUM SULFATE 1 gm IVPB 1 GM/100 ML BAG IV ONE (09:00)
--- NOTE | 2019-06-12 12:49 | P.PN ---
Subjective Date of Service: 06/12/19 Chief Complaint: acute pancreatitis Subjective: Improving Patient seen and examined at bedside. No family at bedside. Chart reviewed and case discussed with nursing staff. Pain Improved, he would like to advance diet and try something more than liquids. Patient with a history of multiple bowel surgeries in the past. Denies any fevers, chills, chest pain, headache, dizziness Review of Systems 10-point ROS is otherwise unremarkable Physical Examination - Vital Signs Temperature: 97.2 F Blood Pressure: 123/73 Pulse: 77 Respirations: 16 Pulse Ox (%): 93 - Physical Exam General: Alert, In no apparent distress, Oriented x3 HEENT: Atraumatic, PERRLA, EOMI Neck: Supple, JVD not distended Respiratory: Clear to auscultation bilaterally, Normal air movement Cardiovascular: Regular rate/rhythm, Normal S1 S2 Gastrointestinal: Normal bowel sounds, Tenderness (Mild) Musculoskeletal: No tenderness Integumentary: No rashes Neurological: Normal speech, Normal tone, Normal affect Lymphatics: No axilla or inguinal lymphadenopathy Assessment And Plan - Current Problems (Diagnosis) (1) Drug-induced pancreatitis Current Visit: Yes Status: Acute Plan: Pancreatitis, likely secondary to ozempic vs fall with trauma to the back. Improving symptoms - tolerated clear liquid diet; advanced to full liquids, advance as tolerated. continue pain control and IV fluids - GI consulted, recommendations appreciated. - continue to hold Ozempic Qualifiers: Chronicity: acute Acute pancreatitis complication: no infection or necrosis Qualified Code(s): K85.30 - Drug induced acute pancreatitis without necrosis or infection (2) Abdominal pain Onset Date: 01/09/15 Current Visit: No Status: Acute Qualifiers: Abdominal location: epigastric Qualified Code(s): R10.13 - Epigastric pain (3) Nausea & vomiting Current Visit: No Status: Acute (4) Diabetes mellitus Onset Date: 01/09/15 Current Visit: No Status: Chronic Qualifiers: Diabetes mellitus type: type 2 (5) Hypertension Onset Date: 12/29/17 Current Visit: No Status: Chronic Qualifiers: Hypertension type: essential hypertension - Plan DVT prophylaxis: Lovenox GI prophylaxis: Proton Diet: Full liquid diet, advance as tolerated Disposition: Pending symptomatic improvement. Anticipate discharge home in the next 24 hr after patient tolerating soft diet. His ozempic will likely need to be discontinued upon discharge. He will require outpatient GI followup.
[2019-06-12 22:19] VITALS: O2SAT 92
[2019-06-13] MEDS: MORPHINE 4 MG/ML SYR IV PRN ×3 (00:22→06:52)
[2019-06-13] MEDS: Ringers Lactate 1,000 ML IV SCH ×2 (03:00→09:40)
[2019-06-13 06:08] LABS: BUN Blood Urea Nitrogen 7 mg/dL (7-18); Bicarbonate 27 mmol/L (21-32); Glucose Level 113 mg/dL (74-106); Magnesium 1.7 mg/dL (1.8-2.4); Potassium 3.5 mmol/L (3.5-5.1); Sodium Level 137 mmol/L (136-145)
[2019-06-13] MEDS: INSULIN -REGULAR HUMAN 50 UNIT/0.5 ML ML SQ SCH (07:30)
[2019-06-13] MEDS ORDERED: POTASSIUM CL SA 10 MEQ TAB PO ONE (07:37)
[2019-06-13] MEDS ORDERED: MAGNESIUM OXIDE 400 MG TAB PO ONE (07:40)
[2019-06-13 08:54] VITALS: BP 166/88; TEMP 98.6
[2019-06-13] MEDS: ENOXAPARIN 40 MG/0.4 ML SQ SCH (09:34)
--- NOTE | 2019-06-14 00:49 | DS ---
Date of Discharge: 06/13/2019 Consultants: Dr. Titus with GI. Admitting Diagnoses: 1.Drug-induced pancreatitis. 2.Abdominal pain, generalized. 3.Anemia; normocytic, normochromic. 4.Obesity. 5.Bowel obstruction. 6.Non-intractable nausea, vomiting. 7.Diabetes mellitus type 2, noninsulin requiring with hyperglycemia. 8.Essential hypertension. 9.History of left osteomyelitis. Discharge Diagnoses: 1.Drug-induced pancreatitis, likely secondary to Ozempic. 2.Acute epigastric abdominal pain, resolved. 3.Non-intractable nausea, vomiting, resolved. 4.Diabetes mellitus type 2, noninsulin requiring with hyperglycemia, stable. 5.Essential hypertension, stable. 6.Obesity, body mass index 36. 7.Status post right above-knee amputation. Hospital Course: The patient is a 68-year-old male with past medical history of diabetes, hypertensi on, neuropathy, right AKA, comes in with acute pancreatitis. Patient is taking a GLP1 agonist called Ozempic, which is notorious for causing these side effects including pancreatitis. Patient was admi tted to the hospital, started on IV fluids and his Ozempic was discontinued. Going forward, patient will need to stop this medication. GI was consulted. Dr. Titus evaluated the patient, did not lilo mmend any scope at this time. Abdomen and pelvis CT scan was done, which showed peripancreatic stran ding and dilatation of the pancreatic duct. Patient otherwise responded well to treatment. He was a ble to tolerate a diet. He was able to ambulate with his prosthesis. His fall previously at home wa s a mechanical fall; he was sleeping with his granddaughter and ended up rolling off the bed, did not have any trauma. Patient was then cleared from GI standpoint and he was stable for discharge. CA 1 9-9 is still pending. He will need to follow up with the primary care physician and Dr. Titus for t hose results. Patient was then cleared for discharge, sent home in a stable condition. Activity: As tolerated. Diet: Diabetic diet. Followup: Follow up with primary care physician in 2 to 3 days. Follow up with GI, Dr. Titus, in 2 weeks. Return to the ER for worsening condition. For now, patient was instructed to hold his stati n medication and to have his liver function tests repeated in 1 week and to restart statin once the l iver enzymes have improved as per the primary care physician. Physical Examination: General: Awake, alert, and oriented x3. Elderly male, obese. CV: S1, S2. No murmurs. Respiratory: Moving air well bilaterally. Abdomen: Soft, nontender, nondistended. Positive bowel sounds. Extremities: No clubbing, cyanosis, or edema. Right AKA. Code Status: Full. Time Spent: Total time spent discharging the patient was 37 minutes. MARY BETH Voice ID: [id number] Report ID: [id number]
== END 2019-06-13 11:25 | disposition home or self-care (01) | DRG 440 ==
LOC: ER 11:30 → ERHOLD 16:12 → 2ND 17:40
PROVIDERS: ADMIT Family Medicine; ATTEND Family Medicine
DX: K85.30 Drug induced acute pancreatitis without necrosis or infection (principal); D64.9 Anemia, unspecified; T38.3X5A Adverse effect of insulin and oral hypoglycemic [antidiabetic] drugs, initial encounter; E11.40 Type 2 diabetes mellitus with diabetic neuropathy, unspecified; E11.65 Type 2 diabetes mellitus with hyperglycemia; I10 Essential (primary) hypertension; L40.9 Psoriasis, unspecified; E66.9 Obesity, unspecified; Z68.36 Body mass index [BMI] 36.0-36.9, adult; Z89.611 Acquired absence of right leg above knee; Z87.891 Personal history of nicotine dependence
CPT/HCPCS: 36415; 74177; 80048; 80053; 80061; 80076; 81003; 82962; 83690; 83735; 84100; 85025; 86301; 93005; 94760; 99285; J1170; J1650; J2405; J3010; J3475; J7030

== ENCOUNTER 2019-12-14 14:50 | Inpatient (IN) | payer OTHER ==
[2019-12-14] MEDS ORDERED: MORPHINE 4 MG/ML SYR ONE ×3 (16:05→18:50)
[2019-12-14] MEDS ORDERED: ONDANSETRON 4 MG/2 ML VIAL ONE ×2 (16:06→18:50)
[2019-12-14] MEDS ORDERED: NA CHLORIDE 0.9% 1,000 ML ONE (16:12)
[2019-12-14 16:16] LABS: Basophils % 0.7 % (0-1.3); Hematocrit 47.8 % (39.6-49.0); Lymphocytes % 17.5 % (15.3-44.8); MPV 9.3 fL (7.6-11.3); RBC Red Blood Cell Count 5.17 M/uL (4.33-5.43)
[2019-12-14 16:33] LABS: Albumin 3.6 g/dL (3.4-5.0); Bilirubin Direct 0.2 mg/dL (0-0.2); Bilirubin Total 0.9 mg/dL (0.2-1.0); Potassium 4.7 mmol/L (3.5-5.1); Protein, Total 7.5 g/dL (6.4-8.2)
--- NOTE | 2019-12-14 17:02 | RAD REPORT ---
EXAM DESCRIPTION: CTAbdomen Pelvis W Contrast - 12/14/2019 4:54 pm CLINICAL HISTORY: Abdominal pain. ABD PAIN COMPARISON: Abdomen Pelvis W Contrast dated 06/09/2019; Abdomen Pelvis W Contrast dated 09/30/2018 ; Abdomen Pelvis W Contrast dated 08/14/2016 TECHNIQUE: Biphasic CT imaging of the abdomen and pelvis was performed with 100 ml non-ionic IV cont rast. All CT scans are performed using dose optimization technique as appropriate and may include automated exposure control or mA/KV adjustment according to patient size. FINDINGS: The lung bases are clear.Mild elevation of the right hemidiaphragm is noted, chronic. Smal l paraesophageal hiatal hernia seen. Mild fatty liver is seen. Cholecystectomy clips are evident. The spleen appears absent. The pancreas, adrenal glands and kidneys within normal limits. Small cysts are present in both kidneys, inferomedi ally the largest on the left noted measuring 29 mm. Several mildly dilated loops of fluid-filled small bowel seen in the left abdomen. No pneumoperitoneu m is present. No intra-abdominal abscess or significant free fluid. The appendix is not identified as a discrete structure, however, no secondary findings of appendicitis are identified. No evidence o f significant lymphadenopathy. Lumbosacral hardware is in place along the right. IMPRESSION: Evidence of a developing mild mechanical small-bowel obstruction.
[2019-12-14 17:58] LABS: Urine Blood NEGATIVE (NEG); Urine Glucose NEGATIVE (NEG); Urine Protein NEGATIVE (NEG); Urine pH 5.5 (5.0-7.0)
[2019-12-14] MEDS ORDERED: CIPROFLOXACIN 400mg IV 400 MG/200 ML BAG IV ONE (18:08)
[2019-12-14] MEDS ORDERED: METRONIDAZOLE 500mg IVPB 500 MG/100 ML BAG IV ONE (18:09)
--- NOTE | 2019-12-14 18:19 | EDPHYS ---
Physician Documentation [facility] Name: Anish Leon Age: 69 yrs Sex: Male : 1950 Arrival Date: 12/14/2019 Time: 14:54 Bed 6 Private MD: Sonny Moncada T ED Physician Pete Dickinson HPI: 12/14 16:00 This 69 yrs old Male presents to ER via Wheelchair with complaints of cp Abdominal Pain, Vomiting. 16:00 The patient presents with abdominal pain that is diffuse. cp 16:00 Onset: The symptoms/episode began/occurred this morning. Associated signs and symptoms: cp Pertinent positives: nausea and vomiting, Pertinent negatives: chest pain, constipation, diarrhea, dysuria, fever, shortness of breath, testicular pain, vomiting blood. Severity of pain: in the emergency department the pain is unchanged despite home interventions. to when diagnosed with bowel obstruction. Historical: - Allergies: 15:13 Zoloft; iw - Home Meds: 15:13 metformin 750 mg Oral Tb24 twice a day [Active]; gabapentin 300 mg oral cap 1 cap 3 iw times per day [Active]; valsartan 320 mg oral tab 1 tab once daily [Active]; carvedilol 12.5 mg oral tab 1 tab 2 times per day [Active]; simvastatin 20 mg Oral tab 1 tab once daily [Active]; duloxetine 60 mg oral cpDR twice a day [Active]; - PMHx: 15:13 Diabetes - NIDDM; Hypertension; neuron pain; Pancreatitis; prostate problems; iw - PSHx: 15:13 right knee amputation; Cholecystectomy; Appendectomy; splenectomy; iw - Immunization history:: Adult Immunizations not up to date. - Social history:: Smoking status: Patient denies any tobacco usage or history of. - Ebola Screening: : Patient negative for fever greater than or equal to 101.5 degrees Fahrenheit, and additional compatible Ebola Virus Disease symptoms Patient denies exposure to infectious person Patient denies travel to an Ebola-affected area in the 21 days before illness onset No symptoms or risks identified at this time. ROS: 16:05 Constitutional: Negative for body aches, chills, fever, poor PO intake. cp 16:05 Eyes: Negative for injury, pain, redness, and discharge. cp 16:05 ENT: Negative for drainage from ear(s), ear pain, sore throat, difficulty swallowing, difficulty handling secretions. 16:05 Cardiovascular: Negative for chest pain, edema, palpitations. 16:05 Respiratory: Negative for cough, shortness of breath, wheezing. 16:05 Abdomen/GI: Positive for abdominal pain, nausea and vomiting, Negative for diarrhea, constipation, hematemesis, black/tarry stool, rectal bleeding. 16:05 Back: Negative for pain at rest, pain with movement, radiated pain. 16:05 : Negative for urinary symptoms, testicular pain 16:05 Skin: Negative for rash. 16:05 Neuro: Negative for altered mental status, headache, weakness. 16:05 All other systems are negative. Exam: 16:15 Constitutional: The patient appears in no acute distress, alert, awake, cp non-diaphoretic, non-toxic, well developed, well nourished, obese. 16:15 Head/Face: Normocephalic, atraumatic. cp 16:15 Eyes: Periorbital structures: appear normal, Conjunctiva: normal, no exudate, no injection, Sclera: no appreciated abnormality, Lids and lashes: appear normal, bilaterally. 16:15 ENT: External ear(s): are unremarkable, Nose: is normal, Mouth: Lips: moist, Oral mucosa: pink and intact, moist, Posterior pharynx: is normal, airway is patent, no erythema, no exudate. 16:15 Chest/axilla: Inspection: normal, Palpation: is normal, no crepitus, no tenderness. 16:15 Cardiovascular: Rate: normal, Rhythm: regular. 16:15 Respiratory: the patient does not display signs of respiratory distress, Respirations: normal, no use of accessory muscles, labored breathing, is not present, Breath sounds: are clear throughout, no decreased breath sounds, no stridor, no wheezing. 16:15 Abdomen/GI: Inspection: obese scar(s), are noted in the mid and lower abdomen, Bowel sounds: active, all quadrants, Palpation: soft, in all quadrants, moderate abdominal tenderness, in all quadrants, rebound tenderness, is not appreciated, voluntary guarding, is elicited in all quadrants. 16:15 Back: pain, is absent, ROM is normal. 16:15 Neuro: Orientation: to person, place \T\ time. Mentation: is normal. Vital Signs: 15:13 BP 163 / 117; Pulse 90; Resp 20; Temp 97.1; Pulse Ox 95% on R/A; Weight 126.1 kg; iw Height 6 ft. 0 in. (182.88 cm); Pain 10/10; 16:00 BP 162 / 103; Pulse 80; Resp 21; Pulse Ox 95% on R/A; hb 16:17 Pain 5/10; tw2 17:00 BP 162 / 94; Pulse 89; Resp 19; Pulse Ox 95% on R/A; hb 18:00 BP 161 / 113; Pulse 92; Resp 17; Pulse Ox 95% on R/A; tw2 18:47 BP 140 / 100; Pulse 90; Resp 19; Pulse Ox 94% on R/A; hb 19:30 BP 142 / 102; Pulse 93; Resp 16; Pulse Ox 93% on R/A; rv 20:00 BP 151 / 105; Pulse 90; Resp 16; Pulse Ox 92% on R/A; rv 15:13 Body Mass Index 37.70 (126.10 kg, 182.88 cm) iw MDM: 15:42 Patient medically screened. 17:30 Data reviewed: vital signs, nurses notes, lab test result(s), radiologic studies, CT cp scan, and as a result, I will admit patient. 18:00 Physician consultation: Win Guy MD was contacted at 17:55, regarding consult, patient's condition, would like admission per Dr. Gregory Ann MD. 18:00 Physician consultation: Gregory Ann MD was contacted at 18:00, regarding admission, to the medical/surgical unit. patient's condition. 12/14 15:45 Order name: Basic Metabolic Panel; Complete Time: 16:56 12/14 16:56 Interpretation: Normal except: NA 135; GLUC 170; GFR 69. 12/14 15:45 Order name: CBC with Diff; Complete Time: 16:56 12/14 16:57 Interpretation: Normal except: WBC 17.4; PLT 420; NEUT A 12.8. 12/14 15:45 Order name: Creatinine for Radiology; Complete Time: 16:56 12/14 16:57 Interpretation: Reviewed. 12/14 15:45 Order name: Hepatic Function; Complete Time: 16:56 12/14 16:56 Interpretation: Normal except: ALK 125; GLOB 3.9; A/G 0.9. cp 12/14 15:45 Order name: Lipase; Complete Time: 16:56 cp 12/14 17:46 Order name: Urine Dipstick--Ancillary (enter results); Complete Time: 18:03 em1 12/14 16:03 Order name: CT Abd/Pelvis - IV Contrast Only; Complete Time: 17:13 cp 12/14 17:14 Interpretation: Report reviewed. cp 12/14 18:45 Order name: Chest Single View XRAY hb 12/14 19:20 Order name: RAD; Complete Time: 17:41 EDMS 12/14 15:45 Order name: IV Saline Lock; Complete Time: 16:05 cp 12/14 15:45 Order name: Labs collected and sent; Complete Time: 16:05 cp 12/14 15:45 Order name: Urine Dipstick-Ancillary (obtain specimen); Complete Time: 17:36 cp 12/14 17:18 Order name: NG Tube; Complete Time: 18:17 cp 12/14 17:22 Order name: NPO; Complete Time: 17:25 cp Administered Medications: 16:05 Drug: morphine 4 mg Route: IVP; Site: right forearm; em 16:17 Follow up: Pain 5/10 Adult; Response: No adverse reaction; Pain is decreased; RASS: tw2 Alert and Calm (0) 16:05 Drug: Zofran 4 mg Route: IVP; Site: right forearm; em 16:17 Follow up: Response: No adverse reaction tw2 16:16 Drug: NS 0.9% 500 ml Route: IV; Rate: bolus; Site: right forearm; tw2 17:26 Follow up: Response: No adverse reaction; IV Status: Completed infusion; IV Intake: tw2 500ml 16:17 Drug: NS 0.9% 500 ml Route: IV; Rate: 500 ml/hr; Site: right forearm; tw2 17:26 Follow up: Response: No adverse reaction; IV Status: Completed infusion; IV Intake: tw2 500ml 17:25 Drug: morphine 4 mg Route: IVP; Site: right forearm; tw2 18:00 Follow up: Response: No adverse reaction hb 18:09 Drug: metroNIDAZOLE 500 mg Volume: 100 ml; Route: IVPB; Infused Over: 30 mins; Site: tw2 right forearm; 18:40 Follow up: Response: No adverse reaction; IV Status: Completed infusion; IV Intake: hb 100ml 18:45 Drug: Cipro 400 mg Volume: 200 ml; Route: IVPB; Infused Over: 60 mins; Site: right hb forearm; 20:14 Follow up: IV Status: Completed infusion rv 18:48 Drug: Zofran 4 mg Route: IVP; Site: right forearm; tw2 18:52 Follow up: Response: No adverse reaction tw2 18:50 Drug: morphine 4 mg {Note: RASS 0.} Route: IVP; Site: right forearm; tw2 20:15 Follow up: Response: No adverse reaction rv Disposition: 12/14/19 18:18 Hospitalization ordered by Gregory Ann for Inpatient Admission. Preliminary diagnosis is Small bowel obstruction. - Bed requested for Telemetry/MedSurg (Inpatient). - Status is Inpatient Admission. rv - Condition is Stable. - Problem is new. - Symptoms have improved. UTI on Admission? No Addendum: 12/16/2019 19:47 Co-signature as Attending Physician, Pete Dickinson MD. r n Signatures: Dispatcher [employer] EDNM Eric Blanton RN RN em Williams, Irene, RN RN Pete Dickinson MD MD rn Page, Corey, PA PA cp Eileen Fair, RN AMANDO Pia Rojo, AMANDO GOEL Emma Bridges, AMANDO RN tw2 Robby Schmidt RN RN rv Corrections: (The following items were deleted from the chart) 12/14 16:57 16:56 Normal except: WBC 17.4; PLT 420. cp cp 19:31 18:18 Hospitalization Ordered by Gregory Ann MD for Inpatient Admission. Preliminary cg diagnosis is Small bowel obstruction. Bed requested for Telemetry/MedSurg (Inpatient). Status is Inpatient Admission. Condition is Stable. Problem is new. Symptoms have improved. UTI on Admission? No. cp 19:45 19:31 12/14/2019 18:18 Hospitalization Ordered by Gregory Ann MD for Inpatient cg Admission. Preliminary diagnosis is Small bowel obstruction. Bed requested for Telemetry/MedSurg (Inpatient). Status is Inpatient Admission. Condition is Stable. Problem is new. Symptoms have improved. UTI on Admission? No. cg 20:32 19:45 12/14/2019 18:18 Hospitalization Ordered by Gregory Ann MD for Inpatient rv Admission. Preliminary diagnosis is Small bowel obstruction. Bed requested for Telemetry/MedSurg (Inpatient). Status is Inpatient Admission. Condition is Stable. Problem is new. Symptoms have improved. UTI on Admission? No. cg
--- NOTE | 2019-12-14 18:19 | ER ---
Nurse's Notes [facility] Name: Anish Leon Age: 69 yrs Sex: Male : 1950 Arrival Date: 12/14/2019 Time: 14:54 Bed 6 Private MD: Sonny Moncada T Diagnosis: Small bowel obstruction Presentation: 12/14 15:11 Presenting complaint: Patient states: abd pain since this am, hx of bowel obstruction, iw +vomiting , normal BM this am. Transition of care: patient was not received from another setting of care. Onset of symptoms was December 14, 2019. Risk Assessment: Do you want to hurt yourself or someone else? Patient reports no desire to harm self or others. Initial Sepsis Screen: Does the patient meet any 2 criteria? No. Patient's initial sepsis screen is negative. Does the patient have a suspected source of infection? No. Patient's initial sepsis screen is negative. Care prior to arrival: None. 15:11 Method Of Arrival: Wheelchair iw 15:11 Acuity: DESHAWN 3 iw Historical: - Allergies: 15:13 Zoloft; iw - Home Meds: 15:13 metformin 750 mg Oral Tb24 twice a day [Active]; gabapentin 300 mg oral cap 1 cap 3 iw times per day [Active]; valsartan 320 mg oral tab 1 tab once daily [Active]; carvedilol 12.5 mg oral tab 1 tab 2 times per day [Active]; simvastatin 20 mg Oral tab 1 tab once daily [Active]; duloxetine 60 mg oral cpDR twice a day [Active]; - PMHx: 15:13 Diabetes - NIDDM; Hypertension; neuron pain; Pancreatitis; prostate problems; iw - PSHx: 15:13 right knee amputation; Cholecystectomy; Appendectomy; splenectomy; iw - Immunization history:: Adult Immunizations not up to date. - Social history:: Smoking status: Patient denies any tobacco usage or history of. - Ebola Screening: : Patient negative for fever greater than or equal to 101.5 degrees Fahrenheit, and additional compatible Ebola Virus Disease symptoms Patient denies exposure to infectious person Patient denies travel to an Ebola-affected area in the 21 days before illness onset No symptoms or risks identified at this time. Screenin:43 Abuse screen: Denies threats or abuse. Nutritional screening: No deficits noted. tw2 Tuberculosis screening: No symptoms or risk factors identified. Fall Risk Secondary diagnosis (15 points) impaired mobility, pt has RIGHT BKA. Assessment: 16:06 General: Appears uncomfortable, Behavior is calm, cooperative, appropriate for age. tw2 Pain: Complains of pain in abdomen. Neuro: Level of Consciousness is awake, alert, obeys commands, Oriented to person, place, time, situation. Cardiovascular: Heart tones S1 S2 Patient's skin is warm and dry. Respiratory: Airway is patent Respiratory effort is even, unlabored, Respiratory pattern is regular, symmetrical, Breath sounds are clear bilaterally. GI: Abdomen is non-distended, Bowel sounds present X 4 quads. Abd is soft X 4 quads Abdomen is tender to palpation X 4 quads. Reports nausea. : No signs and/or symptoms were reported regarding the genitourinary system. EENT: No signs and/or symptoms were reported regarding the EENT system. Derm: No signs and/or symptoms reported regarding the dermatologic system. Musculoskeletal: Range of motion: intact in all extremities. 17:00 Reassessment: Patient appears in no apparent distress at this time. Patient and/or hb family updated on plan of care and expected duration. Pain level reassessed. Patient is alert, oriented x 3, equal unlabored respirations, skin warm/dry/pink. 18:18 Reassessment: Patient and/or family updated on plan of care and expected duration. Pain tw2 level reassessed. Patient is alert, oriented x 3, equal unlabored respirations, skin warm/dry/pink. pt c/o pain again at this time, provider notified. Patient states symptoms have not improved. 20:14 Reassessment: Patient appears in no apparent distress at this time. Patient and/or rv family updated on plan of care and expected duration. Pain level reassessed. Patient is alert, oriented x 3, equal unlabored respirations, skin warm/dry/pink. Vital Signs: 15:13 BP 163 / 117; Pulse 90; Resp 20; Temp 97.1; Pulse Ox 95% on R/A; Weight 126.1 kg; iw Height 6 ft. 0 in. (182.88 cm); Pain 10/10; 16:00 BP 162 / 103; Pulse 80; Resp 21; Pulse Ox 95% on R/A; hb 16:17 Pain 5/10; tw2 17:00 BP 162 / 94; Pulse 89; Resp 19; Pulse Ox 95% on R/A; hb 18:00 BP 161 / 113; Pulse 92; Resp 17; Pulse Ox 95% on R/A; tw2 18:47 BP 140 / 100; Pulse 90; Resp 19; Pulse Ox 94% on R/A; hb 19:30 BP 142 / 102; Pulse 93; Resp 16; Pulse Ox 93% on R/A; rv 20:00 BP 151 / 105; Pulse 90; Resp 16; Pulse Ox 92% on R/A; rv 15:13 Body Mass Index 37.70 (126.10 kg, 182.88 cm) iw ED Course: 14:54 Patient arrived in ED. mr 14:54 Sonny Moncada MD is Private Physician. mr 15:11 Triage completed. iw 15:13 Arm band placed on. iw 15:33 Shara Bautista, RN is Primary Nurse. iw 15:34 Krish Nj PA is PHCP. cp 15:34 Pete Dickinson MD is Attending Physician. cp 15:35 Bed in low position. Call light in reach. Side rails up X2. security monitor on. Pulse tw2 ox on. NIBP on. 15:42 Emma Bridges, AMANDO is Primary Nurse. tw2 16:00 Inserted saline lock: 20 gauge in right forearm, using aseptic technique. ,using tw2 aseptic technique. AMANDO Palacio Blood collected. 16:12 Radiology exam delayed due to lab results not completed at this time. (BUN/Creatinine). vm2 16:54 CT Abd/Pelvis - IV Contrast Only In Process Unspecified. EDMS 17:35 Urine collected: clean catch specimen, samir colored. dh3 18:17 Gregory Ann MD is Hospitalizing Provider. cp 18:18 NGT: inserted 16 Fr. via right nare. verified placement of air over stomach, verified tw2 return of gastric contents, to intermittent suction. Returned gastric contents. Patient tolerated well. 19:05 Report given to AMANDO Mae and AMANDO Flynn. tw2 20:26 No provider procedures requiring assistance completed. Patient admitted, IV remains in rv place. Administered Medications: 16:05 Drug: morphine 4 mg Route: IVP; Site: right forearm; em 16:17 Follow up: Pain 5/10 Adult; Response: No adverse reaction; Pain is decreased; RASS: tw2 Alert and Calm (0) 16:05 Drug: Zofran 4 mg Route: IVP; Site: right forearm; em 16:17 Follow up: Response: No adverse reaction tw2 16:16 Drug: NS 0.9% 500 ml Route: IV; Rate: bolus; Site: right forearm; tw2 17:26 Follow up: Response: No adverse reaction; IV Status: Completed infusion; IV Intake: tw2 500ml 16:17 Drug: NS 0.9% 500 ml Route: IV; Rate: 500 ml/hr; Site: right forearm; tw2 17:26 Follow up: Response: No adverse reaction; IV Status: Completed infusion; IV Intake: tw2 500ml 17:25 Drug: morphine 4 mg Route: IVP; Site: right forearm; tw2 18:00 Follow up: Response: No adverse reaction hb 18:09 Drug: metroNIDAZOLE 500 mg Volume: 100 ml; Route: IVPB; Infused Over: 30 mins; Site: tw2 right forearm; 18:40 Follow up: Response: No adverse reaction; IV Status: Completed infusion; IV Intake: hb 100ml 18:45 Drug: Cipro 400 mg Volume: 200 ml; Route: IVPB; Infused Over: 60 mins; Site: right hb forearm; 20:14 Follow up: IV Status: Completed infusion rv 18:48 Drug: Zofran 4 mg Route: IVP; Site: right forearm; tw2 18:52 Follow up: Response: No adverse reaction tw2 18:50 Drug: morphine 4 mg {Note: RASS 0.} Route: IVP; Site: right forearm; tw2 20:15 Follow up: Response: No adverse reaction rv Intake: 17:26 IV: 500ml; Total: 500ml. tw2 17:26 IV: 500ml; Total: 1000ml. tw2 18:40 IV: 100ml; Total: 1100ml. hb Outcome: 18:18 Decision to Hospitalize by Provider. cp 20:26 Admitted to Tele accompanied by tech, via wheelchair, room 421, with chart, Report rv called to MALCOLM GOEL 20:26 Condition: good 20:26 Discharge instructions given to patient, Instructed on the need for admit. 20:32 Patient left the ED. rv Signatures: Dispatcher Nadja Howard Edgar, RN Shara García RN RN iw Page, Corey, PA PA cp Baxter, Heather, RN RN hb Wise, Tara, RN RN 2 Geri Villanueva [facility] Dottie Garcia [facility] Robby Schmidt RN RN Corrections: (The following items were deleted from the chart) 18:19 18:00 Reassessment: Patient appears in no apparent distress at this time. Patient tw2 and/or family updated on plan of care and expected duration. Pain level reassessed. Patient is alert, oriented x 3, equal unlabored respirations, skin warm/dry/pink. tw2
--- NOTE | 2019-12-14 19:18 | RAD REPORT ---
EXAM DESCRIPTION: RAD - Chest Single View - 12/14/2019 7:03 pm CLINICAL HISTORY: s/p NGT placement Chest pain. COMPARISON: Chest Single View dated 04/02/2018; Abdomen 1 View (KUB) dated 02/17/2018; Chest Single Vi ew dated 02/12/2018; Chest Single View dated 01/03/2018 FINDINGS: Portable technique limits examination quality. The enteric tube appears coiled in the stomach in the left upper quadrant.
[2019-12-14 21:03] VITALS: BMI 37.2
[2019-12-14] MEDS ORDERED: CIPROFLOXACIN 400mg IV 400 MG/200 ML BAG IV SCH (21:30)
[2019-12-14] MEDS ORDERED: ACETAMINOPHEN 650MG/RECT SUPP RECT PRN (21:30)
[2019-12-14] MEDS: INSULIN -REGULAR HUMAN 50 UNIT/0.5 ML ML SQ SCH (21:30)
--- NOTE | 2019-12-14 21:41 | HP ---
Date of Admission: 12/14/2019 Primary Care Physician: Sonny Moncada M.D. Chief Complaint: Abdominal pain, nausea, vomiting. Code status: Full History Of Present Illness: The patient is a 69-year-old male with past medical history of multiple abdominal surgeries with previous history of small- bowel obstructions, diabetes, hypertension, arthritis, comes in with a 2-day history of generalized abdominal pain, nausea, vomiting, which is non-bloody. Patient denies any diarrhea. No fever or chills. The patient suspected that he is having another episode of his small-bowel obstruction. He has had 3 over the past couple of years. Patient was unable to improve, not able to tolerate p.o. intake. Symptoms are constant, moderate, progressively worsening, came into the ER for further evaluation. [place] [id number] scan of the abdomen showed developing small bowel obstruction. Patient had an NG tube placed and was referred for admission. When seen in the ER, he was awake, alert, oriented, in some mild distress. Past Medical History: Hypertension, diabetes mellitus type 2 non-insulin- requiring, hyperlipidemia, psoriasis, generalized osteoarthritis, neuropathy. Past Surgical History: Cholecystectomy, splenectomy, partial bowel resection, lumbar surgery, left knee replacement, right AKA plus 6 knee replacements on the right knee, appendectomy, hemorrhoid surgery, hernia repair with mesh, and then infected mesh that had to be replaced. Allergies: TO SERTRALINE, CAUSES HIVES AND RASH. Medications: List reviewed. Social History: The patient denies any tobacco use, alcohol use, or illicit drug use. Independent in his activities of daily living. Family History: Mother has heart disease. Father has lung disease. Grandfather has liver cirrhosis. Review of Systems: Ten point system reviewed, negative except as per HPI. Physical Examination: Vital Signs: Blood pressure 163/117, pulse 90, respirations 20, temperature 97.1, O2 95% on room air. General: Awake, alert, and oriented x3. Obese male. BMI 37. In mild distress due to pain. HEENT: Normocephalic, atraumatic PERRLA. EOMI. Dry mucous membranes. Oropharynx is clear. Normal dentition. Conjunctivae anicteric. Neck: Supple. No JVD. Trachea midline. CV: S1, S2. Regular rate and rhythm. Peripheral pulses present. Respiratory: Moving air well bilaterally. No wheezing or stridor. No use of accessory muscles. Gastrointestinal: Abdomen is distended, tenderness to palpation. No rebound or guarding. Absent bowel sounds. Extremities: No clubbing, cyanosis, edema on the left. Musculoskeletal: Right AKA. Neuro: Cranial nerves 2 through 12 intact grossly. No focal neurological deficit. Speech is normal. Laboratory Data: Sodium 135, potassium 4.7, chloride 104, CO2 of 21, BUN 12, creatinine 1.07, glucose 170, calcium 9.3, lipase 75. WBC 17.4, H and H 15.8 and 47.8, platelets 420, neutrophils 73%. UA is negative. CT scan of the abdomen and pelvis with contrast shows evidence of developing mild mechanical small bowel obstruction, fatty liver disease, small cysts present on both kidneys. Assessment: A 69-year-old male with, 1. Acute small bowel obstruction likely secondary to adhesions. Patient has had multiple bowel surgeries and abdominal surgeries in the past. Spoke with Dr. Guy, who will see the patient, continue with conservative treatment. NG tube has been placed. We will monitor output. N.p.o. status. We will check abdominal x-ray in a.m. for resolution. Pain control. 2. Essential hypertension, stable. We will resume home medications as appropriate with IV substitution as patient is n.p.o. 3. Diabetes mellitus type 2, non-insulin requiring. We will continue with sliding scale insulin. Monitor blood glucose levels. 4. Generalized osteoarthritis. 5. Diabetic neuropathy. 6. Obesity, BMI 30. 7. Mixed hyperlipidemia. Plan: We will admit the patient to Med-Surg, place as inpatient. Length of stay greater than 2 midnights. MARY BETH Voice ID: [id number] MTDD
[2019-12-14] MEDS: MORPHINE 2 MG/ML SYR IV PRN (22:11)
[2019-12-14] MEDS: D5 0.45 NS 1,000 ML IV SCH (22:12)
[2019-12-15] MEDS: METRONIDAZOLE 500mg IVPB 500 MG/100 ML BAG IV SCH ×3 (01:46→16:11)
[2019-12-15] MEDS: MORPHINE 2 MG/ML SYR IV PRN ×5 (05:45→20:38)
[2019-12-15] MEDS: CIPROFLOXACIN 400mg IV 400 MG/200 ML BAG IV SCH ×2 (06:18→17:38)
[2019-12-15 06:21] LABS: Albumin 3.1 g/dL (3.4-5.0); Bilirubin Total 1.9 mg/dL (0.2-1.0); Magnesium 1.7 mg/dL (1.8-2.4); Potassium 4.4 mmol/L (3.5-5.1); Protein, Total 6.7 g/dL (6.4-8.2)
[2019-12-15] MEDS ORDERED: MAGNESIUM SULFATE 1 gm IVPB 1 GM/100 ML BAG IV ONE (06:31)
[2019-12-15 06:34] LABS: Absolute Lymphocytes (CBC) 3.3 K/uL (0.7-4.9); Basophils % 0.7 % (0-1.3); Hematocrit 45.8 % (39.6-49.0); Lymphocytes % 28.1 % (15.3-44.8); MPV 9.4 fL (7.6-11.3); RBC Red Blood Cell Count 4.96 M/uL (4.33-5.43)
[2019-12-15] MEDS: INSULIN -REGULAR HUMAN 50 UNIT/0.5 ML ML SQ SCH ×4 (07:30→20:34)
[2019-12-15] MEDS: D5 0.45 NS 1,000 ML IV SCH ×2 (07:30→16:11)
[2019-12-15] MEDS ORDERED: PNEUMOCOCCAL VACCINE 0.5 ML IMVAC ONE (08:00)
[2019-12-15] MEDS ORDERED: INFLUENZA VACCINE (for 3y+) 0.5 ML DOSE IMVAC ONE (08:00)
--- NOTE | 2019-12-15 09:18 | RAD REPORT ---
EXAM DESCRIPTION: RAD - Abdomen 1 View (KUB) - 12/15/2019 6:05 am CLINICAL HISTORY: SBO Pain COMPARISON: Abdomen 1 View (KUB) dated 02/17/2018; Abdomen Pelvis W Contrast dated 12/14/2019 FINDINGS: Improvement in the mechanical bowel obstruction pattern is seen since the prior study. Ent mishel tube tip is in the stomach. Moderate stool is present in the right colon. No significant bony findings. Contrast is seen in the bladder. IMPRESSION: Mild to moderate improvement in mechanical small bowel obstruction pattern.
[2019-12-15] MEDS ORDERED: MINERAL OIL 30 ML UCUP PO ONE ×3 (14:26→23:11)
--- NOTE | 2019-12-15 14:50 | P.HP ---
Date of Service: 12/15/19 PC: This 69-year-old male presents emergency room with severe abdominal pain for diagnosis and treatment. HPC: This man noticed he was having hard severe cramping abdominal pain located in the upper portion of his abdomen yesterday evening. The pain became very severe. He came to the emergency room for diagnosis and treatment. PMH: Coronary artery disease PSHx: Previous exploratory laparotomy, splenectomy, distal pancreatectomy, and hernia surgery SOC: Sertraline SYS REVIEW: No cough, wheeze, shortness of breath. No chest pain or palpitations. Has gained some weight recently. Also consumed a large amount of popcorn and apples just prior to this episode of abdominal pain. O/E awake alert and comfortable HEENT: Minimal out through nasogastric tube which is in place Chest: Air movement is equal bilaterally ABD: Soft nontender no hernia noted LOCO: Intact DATA: CT scan shows possible SBO IMPRESSION: This patient has a possible small-bowel obstruction. However clinically he is much improved. He says he has been started passing gas. PLAN: I place of mineral down through his nasogastric tube in the C NG tube. He will repeat a dose tonight. Will start him on clear liquids. If tolerated anticipate discharge in a.m.. (It should be noted he had a single layer episode about the same time last year. Once again he got dehydrated and had a dietary indiscretion and ended up in the ER. He is happy with this plan, and wants to proceed
[2019-12-15] MEDS: ENOXAPARIN 40 MG/0.4 ML SQ SCH (16:10)
[2019-12-15] MEDS: ONDANSETRON 4 MG/2 ML VIAL IV PRN (18:09)
--- NOTE | 2019-12-15 18:40 | PN ---
Date of Progress Note: 12/15/2019 Subjective: Patient is seen and examined, chart reviewed, and case discussed with RN and Dr. Guy . The patient still not passing any gas. Pain is controlled. Medications: List reviewed. Physical Examination: Vital Signs: Temperature 97.2, heart rate 76, blood pressure 129/78, respirations 18, O2 93% on room air. General: Awake, alert, oriented x3. Elderly male, obese, in some mild distress. CV: S1, S2. Regular rate and rhythm. Peripheral pulses present on the left. Gastrointestinal: Abdomen is mildly distended. Absent bowel sounds. Mild tenderness to palpation. Extremities: No clubbing, cyanosis, or edema on the left lower extremity. Musculoskeletal: Right AKA. Neurologic: Nonfocal. Laboratory Data: Sodium 135, potassium 4.4, chloride 105, CO2 of 23, BUN 11, creatinine 0.97, glucos e 173, calcium 8.7, phosphorus 3, magnesium 1.7, total bilirubin 1.9, AST 245, ALT 158, alkaline phos phatase 137, albumin 3.1. WBC 11.7, H and H 15.4 and 45.8, platelets 369, neutrophils 49%. X-ray [facility] B personally reviewed shows [id number] improvement of mechanical small-bowel obstruction patter n. Assessment And Plan: A 69-year-old male with. 1.Acute small-bowel obstruction likely secondary to adhesions. Repeat KUB shows improvement. Jimmy nue with conservative treatment with NG tube to suctioning. Dr. Guy is on the case. Appreciate his input. Continue with pain control, n.p.o. status. 2.Essential hypertension, stable. 3.Diabetes mellitus type 2, non-insulin requiring. We will continue with sliding scale insulin. Mo nitor blood glucose levels. 4.Generalized osteoarthritis, stable. 5.Diabetic neuropathy, stable. 6.Obesity, BMI greater than 30. 7.Mixed hyperlipidemia. 8.Deep venous thrombosis prophylaxis. We will add Lovenox. Plan: Continue IV antibiotics. Conservative treatment for small-bowel obstruction. If does not imp rove in the next 48 hours, may need surgical intervention. SA/MODL Voice ID: [id number] Report ID: [id number]
[2019-12-15] MEDS: PROMETHAZINE INJ 25 MG/ML AMP IV PRN (20:59)
[2019-12-16] MEDS: METRONIDAZOLE 500mg IVPB 500 MG/100 ML BAG IV SCH ×3 (00:13→16:47)
[2019-12-16] MEDS: MORPHINE 2 MG/ML SYR IV PRN ×5 (02:21→20:43)
[2019-12-16] MEDS: D5 0.45 NS 1,000 ML IV SCH ×3 (02:23→20:28)
[2019-12-16] MEDS: PROMETHAZINE INJ 25 MG/ML AMP IV PRN ×4 (03:40→21:45)
[2019-12-16 05:57] LABS: Absolute Lymphocytes (CBC) 2.4 K/uL (0.7-4.9); Basophils % 0.5 % (0-1.3); Hematocrit 45.7 % (39.6-49.0); Lymphocytes % 18.3 % (15.3-44.8); MPV 9.2 fL (7.6-11.3)
[2019-12-16 06:25] LABS: ALT/SGPT 127 U/L (12-78); AST/SGOT 108 U/L (15-37); Alkaline Phosphatase 150 U/L (45-117); BUN Blood Urea Nitrogen 6 mg/dL (7-18); Bicarbonate 23 mmol/L (21-32); Bilirubin Total 1.7 mg/dL (0.2-1.0); Glucose Level 206 mg/dL (74-106); Magnesium 1.8 mg/dL (1.8-2.4); Phosphorus 1.9 mg/dL (2.5-4.9); Potassium 4.1 mmol/L (3.5-5.1); Protein, Total 6.3 g/dL (6.4-8.2); Sodium Level 136 mmol/L (136-145)
[2019-12-16] MEDS: CIPROFLOXACIN 400mg IV 400 MG/200 ML BAG IV SCH ×2 (06:35→17:53)
[2019-12-16] MEDS: INSULIN -REGULAR HUMAN 50 UNIT/0.5 ML ML SQ SCH ×4 (07:54→20:27)
[2019-12-16] MEDS ORDERED: MAGNESIUM SULFATE 1 gm IVPB 1 GM/100 ML BAG IV ONE (09:00)
[2019-12-16] MEDS ORDERED: PNEUMOCOCCAL VACCINE 0.5 ML IMVAC ONE (13:00)
[2019-12-16] MEDS ORDERED: INFLUENZA VACCINE (for 3y+) 0.5 ML DOSE IMVAC ONE (13:00)
--- NOTE | 2019-12-16 13:25 | PN ---
Date of Progress Note: 12/16/2019 History: Patient seen and examined. Chart reviewed and case discussed with RN. Patient is doing better. NG tube was discontinued. He was given mineral oil yesterday. Has not passed gas yet. No BM. Does complain of some mild pain. Medications: List reviewed. Physical Examination: Vital Signs: Temperature 98.5, heart rate 92, blood pressure 139/78, respirations 20, O2 94% on room air. General: Awake, alert, oriented x3, obese male, ill-appearing, in some mild distress due to pain. CV: S1, S2. Regular rate and rhythm. Peripheral pulses present on the left lower extremity. Respiratory: Moving air well bilaterally. No wheezing or stridor. Gastrointestinal: Abdomen is distended, mild tenderness to palpation. No guarding or rigidity. Hypoactive bowel sounds. Extremities: No clubbing, cyanosis, or edema of the left lower extremity. Musculoskeletal: Right AKA. Neurologic: Nonfocal. Laboratory Data: Sodium 136, potassium 4.1, chloride 105, CO2 23, BUN 6, creatinine 0.79, glucose 206, calcium 8.8, phosphorus 1.9, magnesium 1.8. AST 108, ALT 127, alkaline phosphatase 150. WBC 13.1, H and H 14.9 and 45.7, platelets 346. Assessment And Plan: A 69-year-old male with; 1. Acute small bowel obstruction secondary to adhesions, most likely improving. NG tube has been discontinued. Patient encouraged to ambulate. He will call his to bring his prosthesis. Continue with clear liquid diet. Does complain of some pain, has not passed any flatus. We will continue to monitor. 2. Hypomagnesemia. We will replace and monitor. 3. Elevated liver enzymes, unclear etiology. Trending down. 4. Essential hypertension, stable. 5. Diabetes mellitus type 2, non-insulin requiring. We will continue with sliding scale insulin and monitor blood glucose levels. 6. Generalized osteoarthritis, stable. 7. Diabetic neuropathy, stable. 8. Obesity, body mass index 37.2. 9. Hyperlipidemia. 10. 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 11. Deep venous thrombosis prophylaxis. Continue Lovenox. Disposition: Discharge in the next 24 to 48 hours depending on clinical response and improvement in small bowel obstruction. /MODL Voice ID: [id number] Report ID: [id number] MTDTommy
[2019-12-16] MEDS ORDERED: MINERAL OIL 30 ML UCUP PO ONE (13:31)
--- NOTE | 2019-12-16 13:32 | P.PN ---
Date of Service: 12/16/19 S: Patient says is starting to feel better. Has felt some gas moving around his abdomen. Still not passing flatus, but more comfortable than he was on admission. O: Abdomen is soft, mildly tympanic but improved since yesterday white cell count has bumped up but no signs of sepsis etc. Plain film of the abdomen starting to show a resolution A: Resolving partial small-bowel obstruction P: Continue on clear liquids, encourage patient ambulate.
[2019-12-16] MEDS: ENOXAPARIN 40 MG/0.4 ML SQ SCH (16:46)
[2019-12-16] MEDS: carvediloL 12.5 MG TAB PO SCH (20:27)
[2019-12-16] MEDS: GABAPENTIN 300 MG CAP PO SCH (20:27)
[2019-12-16] MEDS: DULOXETINE 30 MG CAP PO SCH (20:27)
[2019-12-16] MEDS: ATORVASTATIN 10 MG TAB PO SCH (20:28)
[2019-12-16] MEDS ORDERED: carvediloL 12.5 MG TAB PO SCH (21:00)
[2019-12-16] MEDS ORDERED: HOME MED 1 EA UNK (Duloxetine Hcl [Cymbalta] 60 MG) PO SCH (21:00)
[2019-12-16] MEDS ORDERED: HOME MED 1 EA UNK (Simvastatin [Simvastatin] 20 MG) PO SCH (21:00)
[2019-12-16] MEDS: DOCUSATE NA 100 MG CAP PO SCH (21:43)
[2019-12-16] MEDS: HYDROCODONE/APAP 10/325 TAB PO PRN (23:38)
[2019-12-17] MEDS: METRONIDAZOLE 500mg IVPB 500 MG/100 ML BAG IV SCH ×3 (00:06→16:23)
[2019-12-17] MEDS: PROMETHAZINE INJ 25 MG/ML AMP IV PRN ×2 (02:50→20:31)
[2019-12-17] MEDS: MORPHINE 2 MG/ML SYR IV PRN (02:55)
[2019-12-17] MEDS: carvediloL 12.5 MG TAB PO SCH ×2 (05:05→17:14)
[2019-12-17] MEDS: CIPROFLOXACIN 400mg IV 400 MG/200 ML BAG IV SCH ×2 (05:05→17:07)
[2019-12-17] MEDS: HYDROCODONE/APAP 10/325 TAB PO PRN ×5 (05:05→23:23)
[2019-12-17 06:14] LABS: Absolute Lymphocytes (CBC) 3.5 K/uL (0.7-4.9); Basophils % 1.2 % (0-1.3); Hematocrit 43.4 % (39.6-49.0); Lymphocytes % 33.8 % (15.3-44.8); MPV 9.7 fL (7.6-11.3); RBC Red Blood Cell Count 4.67 M/uL (4.33-5.43)
[2019-12-17 06:34] LABS: Albumin 2.9 g/dL (3.4-5.0); Bilirubin Total 2.2 mg/dL (0.2-1.0); Magnesium 1.8 mg/dL (1.8-2.4); Potassium 3.8 mmol/L (3.5-5.1); Protein, Total 6.3 g/dL (6.4-8.2)
[2019-12-17] MEDS: INSULIN -REGULAR HUMAN 50 UNIT/0.5 ML ML SQ SCH ×4 (07:30→20:25)
[2019-12-17 08:21] LABS: Anisocytosis 1+; Blood Morphology Comment NOTED (NOT SEEN); Platelet Estimate ADEQ; Urine White Blood Cell Casts OK
[2019-12-17] MEDS: GABAPENTIN 300 MG CAP PO SCH ×3 (08:43→20:25)
[2019-12-17] MEDS: DULOXETINE 30 MG CAP PO SCH ×2 (08:44→20:26)
[2019-12-17] MEDS: DOCUSATE NA 100 MG CAP PO SCH ×2 (08:44→20:26)
[2019-12-17] MEDS ORDERED: HOME MED 1 EA UNK (Valsartan [Valsartan] 320 MG) PO SCH (09:00)
[2019-12-17] MEDS: VALSARTAN 160 MG TAB PO SCH (09:00)
[2019-12-17] MEDS ORDERED: MAGNESIUM SULFATE 1 gm IVPB 1 GM/100 ML BAG IV ONE (09:00)
[2019-12-17] MEDS ORDERED: POTASSIUM CL SA 10 MEQ TAB PO ONE (09:00)
[2019-12-17] MEDS ORDERED: NA CHLORIDE 0.9% 1,000 ML IV ONE ×2 (09:32→18:49)
--- NOTE | 2019-12-17 11:13 | RAD REPORT ---
EXAM DESCRIPTION: RAD - Abdomen 1 View (KUB) - 12/17/2019 10:56 am CLINICAL HISTORY: Abdomen pain. FINDINGS: Air is present throughout colon. Air within the small bowel has diminished. Dilatation of the small bowel continues to diminish. Only a few loops are mildly dilated. The small bowel obstruction appears mostly resolved
[2019-12-17] MEDS: ONDANSETRON 4 MG/2 ML VIAL IV PRN ×2 (12:51→17:06)
[2019-12-17] MEDS: D5 0.45 NS 1,000 ML IV SCH ×2 (14:36→20:26)
[2019-12-17] MEDS: ENOXAPARIN 40 MG/0.4 ML SQ SCH (16:23)
[2019-12-17] MEDS ORDERED: MINERAL OIL 30 ML UCUP PO ONE (17:40)
--- NOTE | 2019-12-17 17:49 | P.PN ---
Date of Service: 12/17/19 S: Patient feels much better today, pain has almost entirely resolved. No nausea or vomiting today. O: Abdomen is softer, occasional bowel sounds A: Resolving small bowel obstruction P: Will start patient on diet, if tolerated will Dc in a.m..
[2019-12-17] MEDS: ATORVASTATIN 10 MG TAB PO SCH (20:26)
[2019-12-17 23:07] LABS: Urine Appearance CLEAR; Urine Bilirubin NEGATIVE (NEG); Urine Blood NEGATIVE (NEG); Urine Color DK YELLOW; Urine Glucose NEGATIVE (NEG); Urine Protein NEGATIVE (NEG)
[2019-12-18 00:12] LABS: Urine Bacteria <20 /HPF (NONE SEEN); Urine Culture Reflex Order NOT NEEDED; Urine RBC <5 /HPF (NONE SEEN); Urine Urothelial Cells <5 /HPF (NONE SEEN)
[2019-12-18] MEDS: METRONIDAZOLE 500mg IVPB 500 MG/100 ML BAG IV SCH ×3 (00:16→11:35)
[2019-12-18] MEDS: PROMETHAZINE INJ 25 MG/ML AMP IV PRN ×2 (02:24→09:56)
[2019-12-18] MEDS: D5 0.45 NS 1,000 ML IV SCH ×2 (03:48→15:30)
[2019-12-18 04:30] LABS: Magnesium 1.8 mg/dL (1.8-2.4); Potassium 4.3 mmol/L (3.5-5.1)
[2019-12-18] MEDS: carvediloL 12.5 MG TAB PO SCH (04:46)
[2019-12-18] MEDS: CIPROFLOXACIN 400mg IV 400 MG/200 ML BAG IV SCH (05:21)
[2019-12-18] MEDS: HYDROCODONE/APAP 10/325 TAB PO PRN (05:22)
[2019-12-18] MEDS: MAGNESIUM SULFATE 1 gm IVPB 1 GM/100 ML BAG IV ONE ×2 (05:32→05:42)
--- NOTE | 2019-12-18 06:39 | DS ---
date of service 12/17/2019 Consultants: Dr. Guy, General Surgery. Procedures: None. Admitting Diagnoses: 1. Acute small bowel obstruction likely secondary to adhesions. 2. Essential hypertension. 3. Diabetes mellitus type 2, [id number] with hyperglycemia. 4. Generalized osteoarthritis. 5. Diabetic neuropathy. 6. Mixed hyperlipidemia. 7. Obesity. Discharge Diagnoses: 1. Acute small bowel obstruction, resolved. 2. Essential hypertension, stable. 3. Diabetes mellitus type 2, non-insulin requiring. 4. Generalized osteoarthritis. 5. Diabetic neuropathy. 6. Obesity, BMI of 30. 7. Mixed hyperlipidemia, stable. 8. Status post right above-knee amputation. 9. Elevated liver enzymes, improving. Hospital Course: Patient is a 69-year-old male with history of multiple abdominal surgeries and multiple small bowel obstructions, comes in with abdominal pain, nausea, and vomiting. CT scan showed developing small bowel obstruction. He had a white count of 17,000. Patient had NG tube placed and was started on IV fluids, kept n.p.o. Patient was seen by Dr. Guy of General Surgery. Patient did well over the course of the hospital stay. There was no signs of sepsis. His white blood cell count improved. His electrolytes were corrected. The patient's pain improved with pain medications. He was unable to pass gas and tolerate liquid diet. NG tube was discontinued after mineral oral was given. Patient was encouraged to ambulate. Patient was then cleared for discharge. His repeat x-ray showed resolution of the small bowel obstruction. He was then sent home in a stable condition. Activity: Fall precautions. Diet: Diabetic. Followup: Follow up with PCP in 2 to 3 days. Follow up with surgeon, Dr. Guy in 1 week. Return to ER for worsening condition. Discharge Diet: Patient to be on a full liquid diet for the next few days and then to transition to bland diet subsequently. Physical Examination: General: Awake, alert, oriented x3, not in any acute distress. CV: S1, S2. Respiratory: Moving air well bilaterally. Abdomen: Soft. Mild distention. Positive bowel sounds. No guarding or rigidity. No tenderness. Extremities: No clubbing, cyanosis, or edema. Neurologic: Nonfocal. Total time spent discharging patient was 35 minutes. /ALMA Voice ID: [id number] Report ID: [id number] [facility] CENTERT[facility]
[2019-12-18] MEDS: INSULIN -REGULAR HUMAN 50 UNIT/0.5 ML ML SQ SCH ×3 (07:26→16:10)
[2019-12-18 07:48] VITALS: O2SAT 95
[2019-12-18] MEDS: DULOXETINE 30 MG CAP PO SCH (08:07)
[2019-12-18] MEDS: DOCUSATE NA 100 MG CAP PO SCH (08:08)
[2019-12-18] MEDS: GABAPENTIN 300 MG CAP PO SCH ×2 (08:08→13:07)
[2019-12-18] MEDS: VALSARTAN 160 MG TAB PO SCH (08:08)
[2019-12-18] MEDS: MORPHINE 2 MG/ML SYR IV PRN (13:08)
[2019-12-18] MEDS ORDERED: MAGNESIUM CITRATE 300 ML BOT PO ONE (14:00)
[2019-12-18] MEDS ORDERED: metroNIDAZOLE 500 MG TABLET PO SCH (14:00)
--- NOTE | 2019-12-18 14:11 | P.PN ---
S: Patient has no specific complaints today. No abdominal pain. Still not passing any gas or bowel movements yet but has not eaten very much since admission. O: Abdomen is soft, nontender A: Partial small-bowel obstruction appears to have resolved. P: I will discuss this case with the hospitalist. I do not feel he is going to require surgical intervention at this time and his pain appears to have resolved. I will discharge him. He will follow up with his primary care. He is more than welcome to follow up with me should he have any questions or problems.
[2019-12-18] MEDS: ENOXAPARIN 40 MG/0.4 ML SQ SCH (16:11)
[2019-12-18 16:14] VITALS: BP 128/78; TEMP 98.3
--- NOTE | 2019-12-18 19:29 | PN ---
Date of Progress Note: 12/18/2019 Subjective: Patient is seen and examined. Chart reviewed and case discussed with RN and Dr. Guy. Patient is doing significantly better yesterday, was supposed to be discharged, however, his blood pressure continued to remain low, required multiple fluid boluses. His urinary output was also low. Medications: List reviewed. Physical Examination: Vital Signs: Temperature 97.9, heart rate 105, blood pressure 143/78, respirations 16, O2 of 93% on room air. General: Awake, alert, and oriented x3, not in any acute distress. Elderly male, obese, BMI 37.2. CV: S1, S2. Sinus tachycardia. Peripheral pulses present. Respiratory: Moving air well bilaterally. No wheezing. Gastrointestinal: Abdomen is soft, nondistended. Positive bowel sounds. No guarding or rigidity. Extremities: No clubbing, cyanosis on the left. Right AKA. Neurologic: Nonfocal. Laboratory Data: Sodium 137, potassium 4.3, chloride 106, CO2 of 27, BUN 9, creatinine 0.99, glucose 191, calcium 8.8, magnesium 1.8. WBC is pending. Assessment: A 69-year-old male with: 1. Acute small-bowel obstruction, resolved. 2. Acute hypotension, resolved. Blood pressure now stabilized. 3. Diabetes mellitus type 2, [id number], stable. 4. Hypomagnesemia, replaced. 5. Generalized osteoarthritis. 6. Diabetic neuropathy. 7. Obesity, BMI 30. 8. Mixed hyperlipidemia, stable. 9. Status post right above knee amputation. 10. Elevated liver enzymes, improving. Plan: Discharge home. Patient is doing well. Cleared by surgical standpoint. KUB from yesterday shows resolution of obstruction. SA/MODL Voice ID: [id number] Report ID: [id number] JOSE
[2019-12-18] MEDS ORDERED: CIPROFLOXACIN HCL 500 MG TAB PO SCH (21:00)
== END 2019-12-18 16:46 | disposition home or self-care (01) | DRG 390 ==
LOC: ER 14:50 → ERHOLD 18:20 → 4TH 20:27
PROVIDERS: ADMIT Family Medicine; ATTEND Family Medicine
DX: K56.51 Intestinal adhesions [bands], with partial obstruction (principal); I10 Essential (primary) hypertension; M15.9 Polyosteoarthritis, unspecified; E11.40 Type 2 diabetes mellitus with diabetic neuropathy, unspecified; E66.9 Obesity, unspecified; Z68.37 Body mass index [BMI] 37.0-37.9, adult; E78.2 Mixed hyperlipidemia; Z89.611 Acquired absence of right leg above knee; R74.8 Abnormal levels of other serum enzymes; Z23 Encounter for immunization
CPT/HCPCS: 36415; 71045; 74018; 74177; 80048; 80053; 80076; 81001; 81003; 82947; 83605; 83690; 83735; 84100; 85025; 90471; 94760; 96361; 96365; 96367; 96375; 97116; 97161; 97530; 99285; J0744; J1650; J2270; J2405; J2550; J3475; J7030; J7799; Q2035; Q9967

== ENCOUNTER 2020-06-05 20:50 | Inpatient (IN) | payer OTHER ==
[2020-06-05 21:53] LABS: Absolute Lymphocytes (CBC) 2.8 K/uL (0.7-4.9); Basophils % 0.8 % (0-1.3); Hematocrit 48.9 % (39.6-49.0); Lymphocytes % 17.6 % (15.3-44.8); MPV 9.6 fL (7.6-11.3); RBC Red Blood Cell Count 5.19 M/uL (4.33-5.43)
--- NOTE | 2020-06-05 22:01 | ER ---
Nurse's Notes [facility] Name: Anish Leon Age: 69 yrs Sex: Male : 1950 Arrival Date: 06/05/2020 Time: 20:55 Bed 19 Private MD: Sonny Moncada T Diagnosis: Abdominal tenderness;Vomiting;Acute pancreatitis;Type 2 diabetes mellitus;Obesity, unspecified;Unspecified kidney failure-acute on chronic Presentation: 06/05 20:58 Chief complaint: Patient states: Pancreatic flare up. Reports Epigastric pain, shooting ca1 to the back since yesterday. Reports N/V/constipation. Coronavirus screen: Proceed with normal triage. Patient denies a cough. Patient denies shortness of breath or difficulty breathing. Patient denies measured and/or subjective temperature greater than 100.4F prior to today's visit. Patient denies travel on a cruise ship or to a country the [facility] currently lists as an affected area. Patient denies contact with known and/or suspected case of COVID-19. Ebola Screen: Patient negative for fever greater than or equal to 101.5 degrees Fahrenheit, and additional compatible Ebola Virus Disease symptoms Patient denies exposure to infectious person. Patient denies travel to an Ebola-affected area in the 21 days before illness onset. No symptoms or risks identified at this time. Initial Sepsis Screen: Does the patient meet any 2 criteria? No. Patient's initial sepsis screen is negative. Does the patient have a suspected source of infection? No. Patient's initial sepsis screen is negative. Risk Assessment: Do you want to hurt yourself or someone else? Patient reports no desire to harm self or others. Onset of symptoms was June 05, 2020. 20:58 Method Of Arrival: Wheelchair ca1 20:58 Acuity: DESHAWN 3 ca1 Triage Assessment: 21:08 General: Appears distressed, uncomfortable, Behavior is calm, cooperative. Pain: ls4 Complains of pain in epigastric area Pain radiates to back Pain currently is 8 out of 10 on a pain scale. GI: Abdomen is non-distended, obese, Bowel sounds hypoactive in right upper quadrant, left upper quadrant, right lower quadrant and left lower quadrant. : No deficits noted. No signs and/or symptoms were reported regarding the genitourinary system. Derm: Skin is intact, Skin is dry, Skin is normal. Historical: - Allergies: 21:01 Zoloft; ca1 - PMHx: 21:01 Hypertension; Diabetes - NIDDM; neuron pain; Pancreatitis; prostate problems; ca1 - PSHx: 21:01 right knee amputation; Cholecystectomy; Appendectomy; splenectomy; ca1 - Immunization history:: Adult Immunizations up to date. - Social history:: Smoking status: Patient denies any tobacco usage or history of. - Family history:: not pertinent. Screenin:07 Abuse screen: Denies threats or abuse. Denies injuries from another. Nutritional ls4 screening: No deficits noted. Tuberculosis screening: No symptoms or risk factors identified. Fall Risk None identified. Assessment: 22:15 GI: GI: Abdomen is non-distended, obese, Bowel sounds hypoactive in right upper ls4 quadrant, left upper quadrant, right lower quadrant and left lower quadrant. Derm: No deficits noted. No signs and/or symptoms reported regarding the dermatologic system. Musculoskeletal: Amputation of right leg. Circulation, motion, and sensation intact. Capillary refill < 3 seconds, Range of motion: intact in all extremities. Vital Signs: 20:58 BP 127 / 97; Pulse 102; Resp 15 S; Temp 97.6(TE); Pulse Ox 94% on R/A; Weight 124.74 kg ca1 (R); Height 6 ft. 0 in. (182.88 cm) (R); Pain 8/10; 23:44 BP 122 / 90; Pulse 93; Resp 16; Pulse Ox 96% on R/A; Pain 7/10; ls4 06/06 00:58 BP 136 / 88; Pulse 91; Resp 16; Temp 98.0(O); Pulse Ox 95% on R/A; Pain 3/10; ls4 06/05 20:58 Body Mass Index 37.30 (124.74 kg, 182.88 cm) ca1 ED Course: 06/05 20:55 Patient arrived in ED. es 20:55 Sonny Moncada MD is Private Physician. es 21:00 Triage completed. ca1 21:01 Arm band placed on right wrist. ca1 21:03 Krish Sandoval MD is Attending Physician. ashley 21:07 Shabnam Hummel, AMANDO is Primary Nurse. ls4 21:09 Patient has correct armband on for positive identification. Bed in low position. Call ls4 light in reach. Side rails up X 1. patient monitor on. Pulse ox on. NIBP on. Verbal reassurance given. Diet: Patient is NPO. 21:09 No provider procedures requiring assistance completed. Patient maintains SpO2 ls4 saturation greater than 95% on room air. 21:25 Initial lab(s) drawn, by me, sent to lab. Inserted saline lock: 22 gauge in right ls4 forearm, using aseptic technique. Blood collected. 21:59 Abdomen In Process Unspecified. EDMS 21:59 Neelima Becker MD is Hospitalizing Provider. [facility] 22:55 Chest Single View XRAY In Process Unspecified. EDMS 06/06 00:55 Report given to ANN GOEL 2nd floor. ea 01:00 Patient admitted, IV remains in place. ls4 Administered Medications: 06/05 21:59 Drug: Pepcid 20 mg Route: IVP; Site: right forearm; ls4 22:22 Follow up: Response: No adverse reaction; Marked relief of symptoms ls4 21:59 Drug: NS 0.9% 1000 ml Route: IV; Rate: 1 bolus; Site: right forearm; ls4 23:00 Follow up: IV Status: Completed infusion; IV Intake: 1000ml ls4 21:59 Drug: NS 0.9% 1000 ml Route: IV; Rate: 1 bolus; Site: right forearm; ls4 06/06 00:59 Follow up: IV Status: Infusion continued upon admission; IV Intake: 500ml ls4 07 21:59 Drug: morphine 4 mg Route: IVP; Site: right antecubital; ls4 22:29 Follow up: Response: No adverse reaction; No change in condition; Pain is unchanged, ls4 physician notified 21:59 Drug: Zofran (Ondansetron) 4 mg Route: IVP; Site: right forearm; ls4 22:29 Follow up: Response: No adverse reaction ls4 22:36 Drug: Meropenem 1 grams Route: IV; Rate: per protocol; Site: right antecubital; ls4 23:47 Follow up: Response: No adverse reaction; IV Status: Completed infusion; IV Intake: ls4 100ml 22:48 Drug: morphine 4 mg Route: IVP; Site: right forearm; ls4 23:44 Follow up: Response: No adverse reaction; No change in condition; Pain is unchanged, ls4 physician notified 23:57 Drug: morphine 4 mg Route: IVP; Site: right forearm; ls4 06/06 00:30 Follow up: Response: No adverse reaction; Marked relief of symptoms ls4 Intake: 06/05 17:30 IV: 50ml; Total: 50ml. ls4 23:00 IV: 1000ml; Total: 1050ml. ls4 23:47 IV: 100ml; Total: 1150ml. ls4 06/06 00:59 IV: 500ml; Total: 1650ml. ls4 Outcome: 06/05 22:00 Decision to Hospitalize by Provider. ashley 06/06 00:45 Instructed on the need for admit. felipe 01:50 Patient left the ED. tyler 01:57 Admitted to Med/surg accompanied by tech, via stretcher, with chart, Report called to felipe Receiving nurse on second floor. 01:57 Condition: stable Signatures: Dispatcher [employer] Cj Brito RN RN Krish Hernandez MD MD cha Salyer, Edna es Antunez, Elena RN RN Shabnam Vega RN RN ls4 Tiffanie Do RN RN ca1 Corrections: (The following items were deleted from the chart) 06/05 22:33 17:30 IV Status: Completed infusion ls4 ls4
--- NOTE | 2020-06-05 22:02 | EDPHYS ---
Physician Documentation [facility] Name: Anish Leon Age: 69 yrs Sex: Male : 1950 Arrival Date: 06/05/2020 Time: 20:55 Bed 19 Private MD: Sonny Moncada T ED Physician Krish Sandoval HPI: 06/05 21:27 This 69 yrs old Male presents to ER via Wheelchair with complaints of ashley Abdominal Pain. 21:27 The patient presents with abdominal pain in the epigastric area, in the upper abdomen. ashley Onset: The symptoms/episode began/occurred 1 day(s) ago. The patient presents to the emergency department with nausea, vomiting, abdominal pain, of the epigastric area, right upper quadrant and left upper quadrant. Onset: The symptoms/episode began/occurred 1 day(s) ago. Possible causes: unknown. The symptoms are aggravated by nothing. The symptoms are alleviated by nothing. Associated signs and symptoms: The patient has no apparent associated signs or symptoms. The symptoms radiate to back. Modifying factors: The symptoms are alleviated by nothing, the symptoms are aggravated by nothing. Historical: - Allergies: 21:01 Zoloft; ca1 - PMHx: 21:01 Hypertension; Diabetes - NIDDM; neuron pain; Pancreatitis; prostate problems; ca1 - PSHx: 21:01 right knee amputation; Cholecystectomy; Appendectomy; splenectomy; ca1 - Immunization history:: Adult Immunizations up to date. - Social history:: Smoking status: Patient denies any tobacco usage or history of. - Family history:: not pertinent. ROS: 21:27 Constitutional: Negative for fever, chills, and weight loss, Eyes: Negative for injury, ashley pain, redness, and discharge, ENT: Negative for injury, pain, and discharge, Neck: Negative for injury, pain, and swelling, Cardiovascular: Negative for chest pain, palpitations, and edema, Respiratory: Negative for shortness of breath, cough, wheezing, and pleuritic chest pain, Back: Negative for injury and pain, : Negative for injury, bleeding, discharge, and swelling, MS/Extremity: Negative for injury and deformity, Skin: Negative for injury, rash, and discoloration, Neuro: Negative for headache, weakness, numbness, tingling, and seizure, Psych: Negative for depression, anxiety, suicide ideation, homicidal ideation, and hallucinations, Allergy/Immunology: Negative for hives, rash, and allergies, Endocrine: Negative for neck swelling, polydipsia, polyuria, polyphagia, and marked weight changes, Hematologic/Lymphatic: Negative for swollen nodes, abnormal bleeding, and unusual bruising. 21:27 Abdomen/GI: Positive for abdominal pain, nausea and vomiting, of the epigastric area, right upper quadrant and left upper quadrant. Exam: 21:27 Constitutional: This is a well developed, well nourished patient who is awake, alert, ashley and in no acute distress. Head/Face: Normocephalic, atraumatic. Eyes: Pupils equal round and reactive to light, extra-ocular motions intact. Lids and lashes normal. Conjunctiva and sclera are non-icteric and not injected. Cornea within normal limits. Periorbital areas with no swelling, redness, or edema. ENT: Nares patent. No nasal discharge, no septal abnormalities noted. Tympanic membranes are normal and external auditory canals are clear. Oropharynx with no redness, swelling, or masses, exudates, or evidence of obstruction, uvula midline. Mucous membranes moist. Neck: Trachea midline, no thyromegaly or masses palpated, and no cervical lymphadenopathy. Supple, full range of motion without nuchal rigidity, or vertebral point tenderness. No Meningismus. Chest/axilla: Normal chest wall appearance and motion. Nontender with no deformity. No lesions are appreciated. Cardiovascular: Regular rate and rhythm with a normal S1 and S2. No gallops, murmurs, or rubs. Normal PMI, no JVD. No pulse deficits. Respiratory: Lungs have equal breath sounds bilaterally, clear to auscultation and percussion. No rales, rhonchi or wheezes noted. No increased work of breathing, no retractions or nasal flaring. Back: No spinal tenderness. No costovertebral tenderness. Full range of motion. Male : Normal genitalia with no discharge or lesions. Skin: Warm, dry with normal turgor. Normal color with no rashes, no lesions, and no evidence of cellulitis. MS/ Extremity: Pulses equal, no cyanosis. Neurovascular intact. Full, normal range of motion. Neuro: Awake and alert, GCS 15, oriented to person, place, time, and situation. Cranial nerves II-XII grossly intact. Motor strength 5/5 in all extremities. Sensory grossly intact. Cerebellar exam normal. Normal gait. Psych: Awake, alert, with orientation to person, place and time. Behavior, mood, and affect are within normal limits. 21:27 Abdomen/GI: Inspection: abdomen appears normal, Bowel sounds: normal, in all quadrants, Palpation: mild abdominal tenderness, moderate abdominal tenderness, in the epigastric area, right upper quadrant and left upper quadrant, Liver: no appreciated palpable abnormalities, Hernia: not appreciated. 21:30 ECG was reviewed by the Attending Physician. [facility] Vital Signs: 20:58 BP 127 / 97; Pulse 102; Resp 15 S; Temp 97.6(TE); Pulse Ox 94% on R/A; Weight 124.74 kg ca1 (R); Height 6 ft. 0 in. (182.88 cm) (R); Pain 8/10; 23:44 BP 122 / 90; Pulse 93; Resp 16; Pulse Ox 96% on R/A; Pain 7/10; ls4 06/06 00:58 BP 136 / 88; Pulse 91; Resp 16; Temp 98.0(O); Pulse Ox 95% on R/A; Pain 3/10; ls4 06/05 20:58 Body Mass Index 37.30 (124.74 kg, 182.88 cm) ca1 MDM: 06/05 21:03 Patient medically screened. [facility] 21:29 Differential diagnosis: gastritis, gastroesophageal reflux disease, non-specific abd ashley pain, pancreatitis, Peptic Ulcer Disease. 21:29 Data reviewed: vital signs, nurses notes, lab test result(s), EKG, radiologic studies, ashley CT scan, plain films. 21:30 Data interpreted: monitoring manager: rate is 102 beats/min, rhythm is regular, Pulse ashley oximetry: on room air is 94 %. Test interpretation: by ED physician or midlevel provider: ECG, plain radiologic studies. Counseling: I had a detailed discussion with the patient and/or guardian regarding: the historical points, exam findings, and any diagnostic results supporting the discharge/admit diagnosis, the presence of at least one elevated blood pressure reading (>120/80) during this emergency department visit, lab results, radiology results, the need for outpatient follow up. Medication response: Zofran markedly relieved the patient's nausea. 06/05 21:08 Order name: Basic Metabolic Panel ls4 06/05 21:08 Order name: CBC with Diff; Complete Time: 22:22 [facility] 06/05 21:08 Order name: Hepatic Function [facility] 06/05 21:08 Order name: Lipase [facility] 06/05 21:25 Order name: Troponin (Emerg Dept Use Only) [facility] 06/05 21:43 Order name: Chest Single View XRAY [facility] 06/05 22:16 Order name: NT PRO-BNP [facility] 06/05 23:43 Order name: CREATININE WHOLE BLOOD [facility] 06/06 00:11 Order name: Comprehensive Metabolic Panel [facility] 06/06 00:12 Order name: CBC with Automated Diff [facility] 06/06 00:12 Order name: Lipid Profile [facility] 06/05 21:08 Order name: IV Saline Lock; Complete Time: 22:13 [facility] 06/05 21:08 Order name: Labs collected and sent; Complete Time: 22:13 [facility] 06/05 21:22 Order name: EKG; Complete Time: 21:22 [facility] 06/05 21:22 Order name: EKG - Nurse/Tech; Complete Time: 01:00 [facility] 06/05 21:58 Order name: Abdomen [facility] 06/06 00:12 Order name: CONS Pharmacy Consult [facility] 06/06 00:12 Order name: CONS Physician Consult [facility] 06/06 00:12 Order name: NPO [facility] EC:30 Rate is 96 beats/min. Rhythm is regular. QRS [place] is Normal. NE interval is normal. QRS ashley interval is normal. QT interval is normal. No Q waves. T waves are Normal. T waves are Inverted in leads I, aVL, V6. Clinical impression: NSR w/ Non-specific ST/T Changes and No evidence of ischemia. Interpreted by me. Reviewed by me. Administered Medications: :59 Drug: Pepcid 20 mg Route: IVP; Site: right forearm; 4 22:22 Follow up: Response: No adverse reaction; Marked relief of symptoms 4 :59 Drug: NS 0.9% 1000 ml Route: IV; Rate: 1 bolus; Site: right forearm; 4 23:00 Follow up: IV Status: Completed infusion; IV Intake: 1000ml ls4 :59 Drug: NS 0.9% 1000 ml Route: IV; Rate: 1 bolus; Site: right forearm; [facility] 06/06 00:59 Follow up: IV Status: Infusion continued upon admission; IV Intake: 500ml ls4 06/05 21:59 Drug: morphine 4 mg Route: IVP; Site: right antecubital; ls4 22:29 Follow up: Response: No adverse reaction; No change in condition; Pain is unchanged, ls4 physician notified 21:59 Drug: Zofran (Ondansetron) 4 mg Route: IVP; Site: right forearm; ls4 22:29 Follow up: Response: No adverse reaction ls4 22:36 Drug: Meropenem 1 grams Route: IV; Rate: per protocol; Site: right antecubital; ls4 23:47 Follow up: Response: No adverse reaction; IV Status: Completed infusion; IV Intake: ls4 100ml 22:48 Drug: morphine 4 mg Route: IVP; Site: right forearm; ls4 23:44 Follow up: Response: No adverse reaction; No change in condition; Pain is unchanged, ls4 physician notified 23:57 Drug: morphine 4 mg Route: IVP; Site: right forearm; ls4 06/06 00:30 Follow up: Response: No adverse reaction; Marked relief of symptoms ls4 Disposition: 06/05/20 22:00 Hospitalization ordered by Neelima Becker for Inpatient Admission. Preliminary diagnosis are Abdominal tenderness, Vomiting, Acute pancreatitis, Type 2 diabetes mellitus, Obesity, unspecified, Unspecified kidney failure - acute on chronic. - Bed requested for Telemetry/MedSurg (Inpatient). - Status is Inpatient Admission. sg - Condition is Stable. - Problem is new. - Symptoms have improved. Signatures: Dispatcher [employer] EDWI Cj Brunner RN RN sg Anderson, Corey, MD MD cha Garcia, Cindy, RN RN Shabnam Hummel RN RN ls4 Tiffanie Do RN RN ca1 Corrections: (The following items were deleted from the chart) 06/05 21:25 21:22 TROPONIN (EMERG DEPT USE ONLY)+C.LAB.BRZ ordered. EDMS EDMS 21:49 21:23 Abdomen Pelvis W Con+CT.RAD.BRZ ordered. EDWI EDMS 22:16 21:43 PROBNP+C.LAB.BRZ ordered. EDWI EDMS 22:28 22:00 Hospitalization Ordered by Neelima Becker MD for Inpatient Admission. Preliminary ashley diagnosis is Abdominal tenderness; Vomiting; Acute pancreatitis; Type 2 diabetes mellitus; Obesity, unspecified. Bed requested for Telemetry/MedSurg (Inpatient). Status is Inpatient Admission. Condition is Stable. Problem is new. Symptoms have improved. [facility] 06/06 00:39 06/05 22:28 06/05/2020 22:00 Hospitalization Ordered by Neelima Becker MD for Inpatient cg Admission. Preliminary diagnosis is Abdominal tenderness; Vomiting; Acute pancreatitis; Type 2 diabetes mellitus; Obesity, unspecified; Unspecified kidney failure - acute on chronic. Bed requested for Telemetry/MedSurg (Inpatient). Status is Inpatient Admission. Condition is Stable. Problem is new. Symptoms have improved. [facility] 06/06 01:50 00:39 06/05/2020 22:00 Hospitalization Ordered by Neelima Becker MD for Inpatient sg Admission. Preliminary diagnosis is Abdominal tenderness; Vomiting; Acute pancreatitis; Type 2 diabetes mellitus; Obesity, unspecified; Unspecified kidney failure - acute on chronic. Bed requested for Telemetry/MedSurg (Inpatient). Status is Inpatient Admission. Condition is Stable. Problem is new. Symptoms have improved. cg
[2020-06-05] MEDS ORDERED: FAMOTIDINE 20 MG/2 ML VIAL IV ONE (22:05)
[2020-06-05] MEDS ORDERED: ONDANSETRON 4 MG/2 ML VIAL ONE (22:05)
[2020-06-05] MEDS ORDERED: MORPHINE 4 MG/ML SYR ONE ×3 (22:05→23:59)
[2020-06-05] MEDS ORDERED: NA CHLORIDE 0.9% 2,000 ML ONE (22:06)
[2020-06-05 22:14] LABS: ALT/SGPT 59 U/L (12-78); AST/SGOT 79 U/L (15-37); Albumin 3.8 g/dL (3.4-5.0); Alkaline Phosphatase 138 U/L (45-117); BUN Blood Urea Nitrogen 23 mg/dL (7-18); Bicarbonate 17 mmol/L (21-32); Bilirubin Direct 0.2 mg/dL (0-0.2); Bilirubin Total 0.8 mg/dL (0.2-1.0); Glucose Level 250 mg/dL (74-106); Lipase 3820 U/L (73-393); Potassium 5.1 mmol/L (3.5-5.1); Protein, Total 8.3 g/dL (6.4-8.2); Sodium Level 134 mmol/L (136-145); Troponin (Emerg Dept Use Only) < 0.02 ng/mL (0.0-0.045)
[2020-06-05 22:28] LABS: NT PRO-BNP 47 pg/mL (<125)
[2020-06-06] MEDS ORDERED: ACETAMINOPHEN 500 MG TAB PO PRN (00:04)
[2020-06-06] MEDS: NA CHLORIDE 0.9% 1,000 ML IV SCH ×4 (02:05→21:00)
[2020-06-06] MEDS: ONDANSETRON 4 MG/2 ML VIAL IV SCH ×6 (02:05→21:17)
[2020-06-06 02:18] VITALS: BMI 35.2
[2020-06-06] MEDS: MORPHINE 2 MG/ML SYR IV PRN ×3 (03:01→10:08)
--- NOTE | 2020-06-06 07:23 | EKG ---
Test Date: 2020-06-05 Test Time: 21:11:34 Power Shovel Engineer: VLADISLAV MEASUREMENT RESULTS: Intervals: Rate: 96 [place]: 218 QRSD: 110 QT: 354 QTc: 447 [place]: P: 58 [place]: 218 QRS: -14 T: 109 INTERPRETIVE STATEMENTS: Sinus rhythm with 1st degree AV block Incomplete left bundle branch block ST & T wave abnormality, consider lateral ischemia Abnormal ECG Compared to ECG 06/09/2019 12:03:41 Left bundle-branch block now present ST (T wave) deviation now present Possible ischemia now present Sinus tachycardia no longer present Electronically Signed On 06-06-20 07:22:53 CDT by Dae Plaza
[2020-06-06 07:43] LABS: Absolute Lymphocytes (CBC) 2.1 K/uL (0.7-4.9); Basophils % 0.6 % (0-1.3); Hematocrit 46.6 % (39.6-49.0); Lymphocytes % 12.1 % (15.3-44.8); MPV 9.4 fL (7.6-11.3); RBC Red Blood Cell Count 4.89 M/uL (4.33-5.43)
[2020-06-06 08:03] LABS: Albumin 3.4 g/dL (3.4-5.0); Bilirubin Total 1.1 mg/dL (0.2-1.0); Potassium 5.4 mmol/L (3.5-5.1); Protein, Total 7.3 g/dL (6.4-8.2)
--- NOTE | 2020-06-06 08:20 | RAD REPORT ---
EXAM DESCRIPTION: RAD - Chest Single View - 06/05/2020 10:55 pm CLINICAL HISTORY: Abdominal distention;Cough COMPARISON: Portable March 2018 TECHNIQUE: AP portable chest image was obtained 06/05/2020 10:55 pm . FINDINGS: Exam is limited by shallow inspiration and body habitus. No dense consolidation or mass of the lung parenchyma. Interstitial pattern not clearly different. Right costophrenic angle blunting i s similar to the prior study and probably chronic pleural change rather than pleural effusion. Heart and vasculature are normal. No pneumothorax. No acute bony abnormality seen. No acute aortic findings suspected. IMPRESSION: No acute lung parenchymal process. Chronic right costophrenic angle blunting.
--- NOTE | 2020-06-06 09:54 | RAD REPORT ---
EXAM DESCRIPTION: CT - Abdomen Pelvis Wo Contrast - 06/06/2020 6:38 am CLINICAL HISTORY: 69 years Male, ABD PAIN COMPARISON: 12/14/2019 TECHNIQUE: 5 mm axial images of the abdomen and pelvis were obtained with intravenous contrast. 3 mm reconstructed. This exam was performed according to our departmental dose-optimization program, which includes autom ated exposure control, adjustment of the mA and/or kV according to patient size and/or use of iterati ve reconstruction technique. INTRAVENOUS CONTRAST: None. FINDINGS: Lung bases: There are no active infiltrates. There is a small diaphragmatic hernia on the left which contains a portion of the gastric fundus. Thi s is stable prior study.. Liver: Normal. Spleen: Absent. Pancreas: There is moderately severe edema involving the pancreatic head and neck and body. There is no pseudocyst. There is no abscess. There has been previous resection of the pancreatic tail. Findings are consistent with acute pancreatitis.. Gallbladder: Absent. Right adrenal gland: Normal. Left adrenal gland: Normal. Right kidney: There are small stable cortical cysts.. Left kidney: There is a cortical cyst in the lower pole which is stable measuring 2.5 x 2.3 cm.. Retroperitoneal structures: There is moderately severe atherosclerotic disease about the abdominal ao rta and iliac arteries.. Bowel survey: There is increased stool throughout the colon.. Urinary bladder: Normal. Prostate gland: Normal size. Peritoneal cavity: Normal. Mesentery structures: Normal. Abdominal wall: No hernia. Bony structures: No suspicious lesions. IMPRESSION: 1. Acute pancreatitis. 2. Increased stool throughout the colon. 3. 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 Electronically signed by: Thony Huddleston MD 06/05/2020 10:19 PM CDT Due to temporary technical issues with the PACS/Fluency reporting system, reports are being signed by the in house radiologist without review as a courtesy to ensure prompt reporting. The interpreting r adiologist is fully responsible for the content of the report.
--- NOTE | 2020-06-06 11:56 | P.HP ---
Certification for Inpatient Patient admitted to: Inpatient Patient will require the following post-hospital care: None Practitioner: I am a practitioner with admitting privileges, knowledge of patient current condition, hospital course, and medical plan of care. Services: Services provided to patient in accordance with Admission requirements found in Title 42 Section 412.3 of the Code of Federal Regulations Patient History Date of Service: 06/06/20 Reason for admission: acute pancreatitis History of Present Illness: Patient is a 69-year-old gentleman who came into the hospital with abdominal discomfort. His workup in the emergency room revealed acute pancreatitis. Patient denies drinking nor has he been told of any gallstones. He has had a cholecystectomy. His symptoms have gradually worsened over the last 2-3 days. He was made to come to the ER with findings as mentioned. Unknown etiology to the pancreatitis. Patient was on a Glucagon-like peptide-1 (GLP-1) agonist in the past. However, patient is no longer taking these. We will check lipid profile. We will manage with IV fluids and pain control. 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 -: appendectomy -: hemorrhoid surgery -: colectomy - Family History Mother Medical History: Heart disease Father Medical History: Lung disease grandfather Medical History: Other (see notes) Notes: liver cirrhosis - Social History Smoking Status: Never smoker Alcohol use: No CD- Drugs: No Caffeine use: Yes Place of Residence: Home Review of Systems 10-point ROS is otherwise unremarkable Physical Examination - Vital Signs Temperature: 97.1 F Blood Pressure: 165/86 Pulse: 86 Respirations: 18 Pulse Ox (%): 98 - Physical Exam General: Alert, In no apparent distress, Oriented x3 HEENT: Atraumatic, PERRLA, Mucous membr. moist/pink, EOMI, Sclerae nonicteric Neck: Supple, 2+ carotid pulse no bruit, No LAD, Without JVD or thyroid abnormality Respiratory: Clear to auscultation bilaterally, Normal air movement Cardiovascular: Regular rate/rhythm, Normal S1 S2, No murmurs Gastrointestinal: Normal bowel sounds, Soft and benign, Non-distended, Tenderness Musculoskeletal: No clubbing, No swelling, No tenderness Integumentary: No rashes Neurological: Normal gait, Normal speech, Normal strength at 5/5 x4 extr, Normal tone, Sensation intact, Cranial nerves 3-12 intact, Normal affect Lymphatics: No axilla or inguinal lymphadenopathy - Studies Laboratory Data (last 24 hrs) 06/05/20 21:33: WBC 16.1 H, Hgb 16.0, Hct 48.9, Plt Count 470 H 06/05/20 21:33: Sodium 134 L, Potassium 5.1, BUN 23 H, Creatinine 1.67 H, Glucose 250 H, Total Bilirubin 0.8, AST 79 H, ALT 59, Alkaline Phosphatase 138 H, Lipase 3820 H Assessment & Plan - Problems (Diagnosis) (1) Abdominal pain Onset Date: 01/09/15 Current Visit: No Status: Acute Qualifiers: (2) Acute pancreatitis Current Visit: No Status: Acute (3) Nausea & vomiting Current Visit: No Status: Acute (4) Obesity (BMI 30-39.9) Current Visit: No Status: Acute (5) Depression Onset Date: 12/29/17 Current Visit: No Status: Chronic Qualifiers: (6) Diabetes mellitus Onset Date: 01/09/15 Current Visit: No Status: Chronic (7) Hypertension Onset Date: 12/29/17 Current Visit: No Status: Chronic Qualifiers: - Plan Plan: 1. Continue IVFs 2. NPO 3. Pain control 4. Monitor lipase level 5. Lipid profile 6. Review medications 7. Repeat CT if symptoms are not improving 8. GI and DVT prophylaxis Discharge Plan: Home Plan to discharge in: Greater than 2 days - Advance Directives Does patient have a Living Will: No Does patient have a Durable POA for Healthcare: Yes - Code Status/Comfort Care Code Status Assessed: Yes Code Status: Full Code Critical Care: No Time Spent Managing PTS Care (In Minutes): 45
[2020-06-06] MEDS: DULOXETINE 30 MG CAP PO SCH ×2 (12:41→21:17)
[2020-06-06] MEDS: METOPROLOL TARTRATE 5 MG/5 ML INJ IV SCH ×2 (12:41→17:18)
[2020-06-06] MEDS: GABAPENTIN 300 MG CAP PO SCH ×2 (14:00→21:17)
[2020-06-06] MEDS: HYDROMORPHONE HCL 1 MG/ML INJ IV PRN ×2 (17:18→21:18)
--- NOTE | 2020-06-06 20:42 | RAD REPORT ---
EXAM DESCRIPTION: MRICholangiogram06/06/2020 8:21 pm CLINICAL HISTORY: Abdominal pain COMPARISON: June 05, 2020 cat scan TECHNIQUE: Magnetic resonance cholangiogram was performed.3D MIP reconstruction performed FINDINGS: Cholecystectomy Left intrahepatic bile ducts are beaded with areas of narrowing. Right intrahepatic bile ducts have a normal appearance. Mild prominence of the common bile duct without visualization of a filling defect. The main pancreati c duct is dilated IMPRESSION: Cholecystectomy Mild prominence of the common bile duct with prominence of the main pancreatic duct likely the sequel a of chronic pancreatitis Left intrahepatic bile ducts are beaded with areas of narrowing. This can be seen with primary sclero sing cholangitis
[2020-06-06] MEDS ORDERED: BISACODYL E.C. 5 MG TAB PO ONE (22:51)
[2020-06-07] MEDS: NA CHLORIDE 0.9% 1,000 ML IV SCH ×5 (00:06→21:09)
[2020-06-07] MEDS: METOPROLOL TARTRATE 5 MG/5 ML INJ IV SCH (00:06)
[2020-06-07] MEDS: ONDANSETRON 4 MG/2 ML VIAL IV SCH ×6 (00:07→20:54)
[2020-06-07] MEDS: HYDROMORPHONE HCL 1 MG/ML INJ IV PRN ×5 (02:03→21:00)
[2020-06-07] MEDS ORDERED: METOPROLOL TARTRATE 5 MG/5 ML INJ IV PRN (04:15)
[2020-06-07] MEDS: METOPROLOL TAR 50 MG TAB PO SCH ×2 (05:14→17:03)
--- NOTE | 2020-06-07 05:39 | P.PN ---
Subjective Date of Service: 06/07/20 Subjective: No new changes, No C/O voiced, Other (Patient remains having pain at this time. But much better than yesterday. Start on liquid diet at this time if labs look much better.) Review of Systems 10-point ROS is otherwise unremarkable Physical Examination - Vital Signs Temperature: 98.0 F Blood Pressure: 172/87 Pulse: 86 Respirations: 20 Pulse Ox (%): 94 - Physical Exam General: Alert, In no apparent distress, Oriented x3 Neck: JVD not distended Respiratory: Clear to auscultation bilaterally, Normal air movement Cardiovascular: Regular rate/rhythm, Normal S1 S2, No murmurs Gastrointestinal: Normal bowel sounds, Soft and benign, Non-distended, No tenderness Musculoskeletal: No clubbing, No swelling, No tenderness Integumentary: No rashes Neurological: Normal speech, Normal tone, Normal affect Lymphatics: No axilla or inguinal lymphadenopathy - Studies Medications List Reviewed: Yes Assessment & Plan - Problems (Diagnosis) (1) Abdominal pain Onset Date: 01/09/15 Current Visit: No Status: Acute Qualifiers: (2) Acute pancreatitis Current Visit: No Status: Acute (3) Nausea & vomiting Current Visit: No Status: Acute (4) Obesity (BMI 30-39.9) Current Visit: No Status: Acute (5) Depression Onset Date: 12/29/17 Current Visit: No Status: Chronic Qualifiers: (6) Diabetes mellitus Onset Date: 01/09/15 Current Visit: No Status: Chronic (7) Hypertension Onset Date: 12/29/17 Current Visit: No Status: Chronic Qualifiers: - Plan Plan: 1. Continue IVFs 2. NPO 3. Pain control 4. Monitor lipase level 5. Lipid profile 6. Review medications 7. Repeat CT if symptoms are not improving 8. GI and DVT prophylaxis - Advance Directives Does patient have a Living Will: No Does patient have a Durable POA for Healthcare: Yes - Code Status/Comfort Care Code Status: Full Code
[2020-06-07 06:44] LABS: Absolute Lymphocytes (CBC) 2.4 K/uL (0.7-4.9); Basophils % 0.9 % (0-1.3); Hematocrit 45.7 % (39.6-49.0); Lymphocytes % 11.9 % (15.3-44.8); MPV 9.6 fL (7.6-11.3); RBC Red Blood Cell Count 4.83 M/uL (4.33-5.43)
[2020-06-07] MEDS: DULOXETINE 30 MG CAP PO SCH ×2 (08:52→20:54)
[2020-06-07] MEDS: CEFEPIME/SWI 1gm 10 ML IV SCH ×2 (08:52→20:53)
[2020-06-07] MEDS: GABAPENTIN 300 MG CAP PO SCH ×3 (08:53→20:54)
[2020-06-07] MEDS ORDERED: CEFEPIME 1 GM/VIAL IV SCH (09:00)
[2020-06-07 09:21] LABS: Albumin 3.2 g/dL (3.4-5.0); Bilirubin Total 1.3 mg/dL (0.2-1.0); Potassium 4.6 mmol/L (3.5-5.1); Protein, Total 7.2 g/dL (6.4-8.2)
[2020-06-07 09:48] LABS: Blood Morphology Comment NOT SEEN (NOT SEEN); Platelet Estimate ADEQ; Urine White Blood Cell Casts OK
[2020-06-08 00:42] VITALS: O2SAT 93
[2020-06-08] MEDS: ONDANSETRON 4 MG/2 ML VIAL IV SCH ×6 (01:25→20:55)
[2020-06-08] MEDS: NA CHLORIDE 0.9% 1,000 ML IV SCH ×4 (01:45→19:40)
[2020-06-08] MEDS: HYDROMORPHONE HCL 1 MG/ML INJ IV PRN ×3 (02:01→09:19)
--- NOTE | 2020-06-08 04:34 | P.PN ---
Subjective Date of Service: 06/08/20 Subjective: Improving Patient feeling better. Will go ahead and advanced diet as tolerated. Hopefully his lipase continues to normalize. His clinical symptoms have improved. Review of Systems 10-point ROS is otherwise unremarkable Physical Examination - Vital Signs Temperature: 97.6 F Blood Pressure: 132/66 Pulse: 76 Respirations: 16 Pulse Ox (%): 96 - Physical Exam General: Alert, In no apparent distress, Oriented x3 Respiratory: Clear to auscultation bilaterally, Normal air movement Cardiovascular: Regular rate/rhythm, Normal S1 S2, No murmurs Gastrointestinal: Normal bowel sounds, Soft and benign, Non-distended, No tenderness Musculoskeletal: No clubbing, No swelling, No tenderness Integumentary: No rashes Neurological: Normal strength at 5/5 x4 extr, Normal tone, Sensation intact, Cranial nerves 3-12 intact Lymphatics: No axilla or inguinal lymphadenopathy - Studies Medications List Reviewed: Yes Assessment & Plan - Problems (Diagnosis) (1) Abdominal pain Onset Date: 01/09/15 Current Visit: No Status: Acute Qualifiers: (2) Acute pancreatitis Current Visit: No Status: Acute (3) Nausea & vomiting Current Visit: No Status: Acute (4) Obesity (BMI 30-39.9) Current Visit: No Status: Acute (5) Depression Onset Date: 12/29/17 Current Visit: No Status: Chronic Qualifiers: (6) Diabetes mellitus Onset Date: 01/09/15 Current Visit: No Status: Chronic (7) Hypertension Onset Date: 12/29/17 Current Visit: No Status: Chronic Qualifiers: - Plan Plan: Continue with plan of care as mentioned below 1. Continue IVFs 2. Clear liquid diet and advanced diet as tolerated 3. Pain control 4. Monitor lipase level 5. Lipid profile was unremarkable 6. Repeat CT if symptoms are not improving 7. GI and DVT prophylaxis Discharge Plan: Home Plan to discharge in: Greater than 2 days - Advance Directives Does patient have a Living Will: No Does patient have a Durable POA for Healthcare: Yes - Code Status/Comfort Care Code Status: Full Code Critical Care: No Time Spent Managing PTS Care (In Minutes): 30
[2020-06-08] MEDS: METOPROLOL TAR 50 MG TAB PO SCH ×2 (06:04→16:56)
[2020-06-08] MEDS: CEFEPIME/SWI 1gm 10 ML IV SCH ×2 (09:18→20:22)
[2020-06-08] MEDS: DULOXETINE 30 MG CAP PO SCH ×2 (09:18→20:19)
[2020-06-08] MEDS: GABAPENTIN 300 MG CAP PO SCH ×3 (09:19→20:19)
[2020-06-08 14:25] LABS: Hematocrit 42.3 % (39.6-49.0); Lymphocytes % 16.8 % (15.3-44.8); MPV 9.9 fL (7.6-11.3); RBC Red Blood Cell Count 4.42 M/uL (4.33-5.43)
[2020-06-08 14:26] LABS: Absolute Lymphocytes (CBC) 2.7 K/uL (0.7-4.9); Basophils % 0.6 % (0-1.3)
[2020-06-08 14:39] LABS: Protime INR 1.17
[2020-06-08] MEDS: HYDROCODONE/APAP 10/325 TAB PO PRN (21:59)
[2020-06-09] MEDS: ONDANSETRON 4 MG/2 ML VIAL IV SCH ×3 (01:00→09:00)
[2020-06-09] MEDS: NA CHLORIDE 0.9% 1,000 ML IV SCH ×2 (02:20→09:00)
--- NOTE | 2020-06-09 05:48 | P.DS ---
Discharge Date: 06/09/20 Disposition: ROUTINE DISCHARGE Discharge Condition: GOOD Reason for Admission: acute pancreatitis - Problems (1) Abdominal pain Onset Date: 01/09/15 Status: Acute Qualifiers: (2) Acute pancreatitis Status: Acute (3) Nausea & vomiting Status: Acute (4) Obesity (BMI 30-39.9) Status: Acute (5) Depression Onset Date: 12/29/17 Status: Chronic Qualifiers: (6) Diabetes mellitus Onset Date: 01/09/15 Status: Chronic (7) Hypertension Onset Date: 12/29/17 Status: Chronic Qualifiers: Brief History of Present Illness: Patient is a 69-year-old gentleman who came into the hospital with abdominal discomfort. His workup in the emergency room revealed acute pancreatitis. Patient denies drinking nor has he been told of any gallstones. He has had a cholecystectomy. His symptoms have gradually worsened over the last 2-3 days. He was made to come to the ER with findings as mentioned. Unknown etiology to the pancreatitis. Patient was on a Glucagon-like peptide-1 (GLP-1) agonist in the past. However, patient is no longer taking these. We will check lipid profile. We will manage with IV fluids and pain control. Patient will be admitted to the hospital for further workup Hospital Course: Patient had done well during hospital stay. Patient's clinical status is improved. Patient's MRCP did reveal a beading pattern. Patient was advised to follow up with gastroenterology for ERCP-Patient with possible sclerosing cholangitis. Okay to discharge and has been advised to refrain from alcohol. Return to the Emergency room if pain worsens. Vital Signs/Physical Exam: Temp Pulse Resp BP Pulse Ox 97.7 F 88 18 139/71 95 06/09/20 00:00 06/09/20 00:00 06/09/20 00:00 06/09/20 00:00 06/09/20 00:00 General: Alert, In no apparent distress, Oriented x3 Laboratory Data at Discharge: WBC 16.3 K/uL (4.3-10.9) H D 06/08/20 14:05 Hgb 13.7 g/dL (13.6-17.9) 06/08/20 14:05 Hct 42.3 % (39.6-49.0) 06/08/20 14:05 Plt Count 379 K/uL (152-406) 06/08/20 14:05 PT 13.8 SECONDS (9.5-12.5) H 06/08/20 14:05 INR 1.17 06/08/20 14:05 APTT 35.8 SECONDS (24.3-36.9) 06/08/20 14:05 Sodium 134 mmol/L (136-145) L 06/07/20 06:29 Potassium 4.6 mmol/L (3.5-5.1) 06/07/20 06:29 BUN 10 mg/dL (7-18) 06/07/20 06:29 Creatinine 0.85 mg/dL (0.55-1.3) 06/07/20 06:29 Glucose 203 mg/dL (74-106) H 06/07/20 06:29 Total Bilirubin 1.3 mg/dL (0.2-1.0) H 06/07/20 06:29 AST 35 U/L (15-37) 06/07/20 06:29 ALT 47 U/L (12-78) 06/07/20 06:29 Alkaline Phosphatase 126 U/L (45-117) H 06/07/20 06:29 Triglycerides 129 mg/dL (<150) 06/06/20 07:26 Cholesterol 178 mg/dL (<200) 06/06/20 07:26 HDL Cholesterol 34 mg/dL (40-60) L 06/06/20 07:26 Cholesterol/HDL Ratio 5.24 06/06/20 07:26 Lipase 1372 U/L (73-393) H 06/07/20 06:29 Lipase Cancelled 06/07/20 06:29 Home Medications: Duloxetine HCl [Cymbalta] 60 mg PO BID 06/06/20 Gabapentin 300 mg PO TID 06/06/20 Metformin HCl [Metformin HCl ER] 750 mg PO BID 06/06/20 Simvastatin 20 mg PO BEDTIME 06/06/20 Hydrocodone 10/APAP 325 [Temple 10/325*] 1 tab PO Q6HR #30 tab 06/09/20 Metoprolol Tartrate [Lopressor*] 50 mg PO BID 6AM 6PM #60 tab 06/09/20 New Medications: Metoprolol Tartrate [Lopressor*] 50 mg PO BID 6AM 6PM #60 tab Hydrocodone 10/APAP 325 [Temple 10/325*] 1 tab PO Q6HR #30 tab Patient Discharge Instructions: OK TO DC IV AND DC HOME. FOLLOW-UP WITH PRIMARY CARE PROVIDER IN 1-2 WEEKS. FOLLOW-UP WITH GI IN 1-2 WEEKS; patient may need ERCP. RETURN TO THE ER IF symptoms worsen. CALL or TEXT DR. SHAH AT [phone] IF ANY QUESTIONS REGARDING HOSPITAL STAY. PLEASE CALL THE FLOOR AT [phone] IF ANY MEDICATION OR NURSING QUESTIONS. Diet: low fat Activity: Fall precautions Followup: Jean Damon MD [ACTIVE - CAN ADMIT] - Time spent managing pt's care (in minutes): 25
[2020-06-09] MEDS: METOPROLOL TAR 50 MG TAB PO SCH (06:12)
[2020-06-09] MEDS: HYDROCODONE/APAP 10/325 TAB PO PRN (06:13)
[2020-06-09 06:25] LABS: Absolute Lymphocytes (CBC) 3.3 K/uL (0.7-4.9); Basophils % 1.1 % (0-1.3); Hematocrit 45.2 % (39.6-49.0); MPV 10.1 fL (7.6-11.3)
[2020-06-09 06:48] LABS: ALT/SGPT 61 U/L (12-78); AST/SGOT 44 U/L (15-37); Albumin 3.3 g/dL (3.4-5.0); Alkaline Phosphatase 167 U/L (45-117); BUN Blood Urea Nitrogen 7 mg/dL (7-18); Bicarbonate 24 mmol/L (21-32); Bilirubin Total 1.3 mg/dL (0.2-1.0); Glucose Level 182 mg/dL (74-106); Lipase 535 U/L (73-393); Magnesium 1.5 mg/dL (1.8-2.4); Phosphorus 1.9 mg/dL (2.5-4.9); Potassium 3.9 mmol/L (3.5-5.1); Protein, Total 7.9 g/dL (6.4-8.2); Sodium Level 133 mmol/L (136-145)
[2020-06-09] MEDS: CEFEPIME/SWI 1gm 10 ML IV SCH (09:00)
[2020-06-09 09:15] VITALS: BP 117/61; TEMP 97
[2020-06-09] MEDS: DULOXETINE 30 MG CAP PO SCH (09:27)
[2020-06-09] MEDS: GABAPENTIN 300 MG CAP PO SCH (09:27)
== END 2020-06-09 09:46 | disposition home or self-care (01) | DRG 439 ==
LOC: ER 20:50 → ERHOLD 06-06 00:54 → 2ND 06-06 00:55
PROVIDERS: ADMIT Hospitalist; ATTEND Hospitalist
DX: K85.90 Acute pancreatitis without necrosis or infection, unspecified (principal); K83.09 Other cholangitis; Z90.49 Acquired absence of other specified parts of digestive tract; Z88.8 Allergy status to other drugs, medicaments and biological substances; Z79.84 Long term (current) use of oral hypoglycemic drugs; Z79.899 Other long term (current) drug therapy; I10 Essential (primary) hypertension; Z90.81 Acquired absence of spleen; E11.9 Type 2 diabetes mellitus without complications; Z96.653 Presence of artificial knee joint, bilateral; Z89.611 Acquired absence of right leg above knee; E66.9 Obesity, unspecified; Z68.30 Body mass index [BMI] 30.0-30.9, adult; R11.2 Nausea with vomiting, unspecified; F32.9 Major depressive disorder, single episode, unspecified; Z11.59 Encounter for screening for other viral diseases
CPT/HCPCS: 36415; 71045; 74176; 74181; 80048; 80053; 80061; 80076; 82565; 82947; 83690; 83735; 83880; 84100; 84484; 85025; 85610; 85730; 93005; 96361; 96365; 96375; 99285; J0692; J1170; J2270; J2405; J7030; U0002

== ENCOUNTER 2021-04-08 10:05 | Inpatient (IN) | payer OTHER ==
--- OUTSIDE RECORDS SUMMARY | 2021-04-08 10:08 | XMS REPORT | Continuity of Care Document ---
:1950 Author Organization [facility] t Address [address] [place] [address] Care Team Providers Name Role Phone YAHAIRA Primary Care Physician Unavailable SYSTEM, NOT IN Attending Clinician Unavailable Yahaira SELF Attending Clinician YAHAIRA Attending Clinician Unavailable Jonathan GOEL Attending Clinician Unavailable Payers Payer Name Policy Type Policy Effective Date Expiration Date Sour ce Number MEDICAREMEDICARE PART [id number] 2009 MD Sandoval A AND 00:00:00 [id number] [id number] [phone] [place] [id number] 2018 MD Sandoval SUPPLEMENTAETNA FOR[facility]LY [facility] 00:00:00 SUPPLEMENT-SECONDARY [id number] 8-PresentMedigap Problems This patient has no known problems. Allergies, Adverse Reactions, Alerts This patient has no known allergies or adverse reactions. Social History Social Habit Start Date Stop Date Quantity Comments Source Sex Assigned At MD Sandoval Medications This patient has no known medications. Vital Signs Vital Name Observation Time Observation Value Comments Source Body temperature 2020-07-09 20:00:00 35.78 Yris MD Friend [email or web address] Procedures Procedure Date / Time Performed Performing Clinician [facility] e 2019-NCOV COVID-19 2020-07-09 20:23:00 Spike Whyte MD And erson OSI MRI ABDOMEN 2020-06-06 18:11:47 Krish Nj MD OSI CHEST 2020-06-05 18:12:03 Krish Nj MD OSI CT ABDOMEN AND PELVIS 2020-06-05 18:11:25 Krish Nj MD Encounters Start End Encounter Admission Attending Care Care Encounter Source Date/Time Date/Time Type Type Clinicians Facility Department ID 2020-07-22 Outpatient SYSTEM, YESICA ROBERT [id number] 10:27:39 PROVIDER Doe o n 2020-07-18 2020-07-18 Outpatient GE, SPIKE ROBERT MDA [id number] 13:04:26 13:04:26 Doe o n 2020-07-18 2020-07-18 Outpatient GE, SPIKE ROBERT MDA [id number] 13:04:22 13:04:22 Doe o n 2020-07-18 2020-07-18 Outpatient GE, SPIKE ROBERT MDA [id number] 13:03:54 13:03:54 Doe o n 2020-07-18 2020-07-18 Outpatient GE, SPIKE ROBERT MDA [id number] 13:03:53 13:03:53 Doe o n 2020-07-18 2020-07-18 Outpatient GE, SPIKE ROBERT MDA [id number] 13:03:52 13:03:52 Doe o n 2020-07-18 2020-07-18 Outpatient GE, SPIKE ROBERT MDA [id number] 13:03:51 13:03:51 Doe o n 2020-07-18 2020-07-18 Outpatient GE, SPIKE ROBERT MDA [id number] 13:03:50 13:03:50 Doe o n 2020-07-11 2020-07-11 Outpatient EL GE, SPIKE ROBERT MDA [id number] 00:00:00 00:00:00 Doe o n 2020-07-09 2020-07-09 Outpatient EL GE, SPIKE ROBERT MDA [id number] 15:17:45 15:17:45 Doe o n Results Test Description Test Time Test Comments Results Result Sourc e Comments OSI Chest 2020-07-18 For comparison MD Lucille jeffers 18:14:00 only. No interpretation requested. OSI MRI ABDOMEN 2020-07-18 For comparison MD Vera conteh 18:11:56 only. No interpretation requested. OSI CT Abdomen 2020-07-18 For comparison and Pelvis 18:11:35 only. No interpretation requested. COVID-19 (TANNER-CoV-2) PCR Asymptomatic 2020-07-10 19:45:04 Test Item Value Reference Range Interpretation Comme nts COVID19 SARS Indication (test New Patient code = 12722) COVID19 SARS Result (test code Not Detected Not Detected = 55142-5) COVID19 SARS Interpretation SARS-CoV-2 NOT Detected. Reference (test code = 44433) Range: Not Detected Methodology: The Min RealTime SARS-CoV-2 assay is a qualitative real-time reverse fountain waitress/waiter polymerase chain reaction (rounding machine tender-PCR) test to detect RNA from SARS-CoV-2 in nasal, nasopharyngeal and oropharyngeal swabs from patients with signs and symptoms of infection who are suspected of COVID-19 by their health care provider. The Min RealTime SARS-CoV-2 performed on the [id number] System is a dual target assay with primers and probes for the RdRp and N genes. Results must be interpreted within the context of all relevant clinical and laboratory findings, and epidemiological risk factors. Positive results are indicative of the presence of SARS-CoV-2 RNA; clinical correlation with patient history and other diagnostic information is necessary to determine patient infection status. Positive results do not rule out bacterial infection or co-infection with other viruses. Negative results do not preclude SARS-CoV-2 infection and should not be used as the sole basis for patient management decisions. The Min RealTime SARS-CoV-2 assay is for in vitro diagnostic use under FDA Emergency Use Authorization only. Testing is limited to laboratories certified under the Clinical Laboratory Improvement Amendments of 1988 (CLIA), 42U.S.C. 263a, to perform high complexity tests. The Test was performed by the CLIA-certified, high-complexity Molecular Diagnostics Laboratory (MDL) at [facility] under the Food and Drug Administration (FDA) s Emergency Use Authorization. Factsheet for patients: https://www.[facility].org/AbbottFactS heetPatientsFactsheet for healthcare providers: https://www.[facility].org/AbbottFactS heetHCP Test performed by:[facility] [id number] [place] [address] MD Sandoval
[2021-04-08] MEDS ORDERED: ONDANSETRON 4 MG/2 ML VIAL ONE (11:14)
[2021-04-08] MEDS ORDERED: MORPHINE 4 MG/ML SYR ONE ×3 (11:14→20:36)
[2021-04-08] MEDS ORDERED: FAMOTIDINE 20 MG/2 ML VIAL IV ONE (11:14)
[2021-04-08] MEDS ORDERED: NA CHLORIDE 0.9% 1,000 ML ONE ×2 (11:15→14:19)
[2021-04-08 11:44] LABS: Absolute Lymphocytes (CBC) 3.9 K/uL (0.7-4.9); Hematocrit 42.4 % (39.6-49.0); Lymphocytes % 29.2 % (15.3-44.8); RBC Red Blood Cell Count 4.55 M/uL (4.33-5.43)
[2021-04-08 11:59] LABS: Albumin 3.2 g/dL (3.4-5.0); Bilirubin Direct 0.1 mg/dL (0-0.2); Bilirubin Total 0.6 mg/dL (0.2-1.0); Magnesium 1.7 mg/dL (1.8-2.4); Potassium 4.3 mmol/L (3.5-5.1); Protein, Total 7.5 g/dL (6.4-8.2)
--- NOTE | 2021-04-08 12:18 | RAD REPORT ---
EXAM DESCRIPTION: CT - Abdomen Pelvis W Contrast - 04/08/2021 11:45 am CLINICAL HISTORY: upper abdomen pain COMPARISON: Abdomen Pelvis W Contrast dated 12/14/2019 TECHNIQUE: Biphasic, helical CT imaging of the abdomen and pelvis was performed following 100 ml non -ionic IV contrast. No oral contrast administered. All CT scans are performed using dose optimization technique as appropriate and may include automated exposure control or mA/KV adjustment according to patient size. FINDINGS: No acute pleural or parenchymal process of the lung bases. No cardiomegaly or pericardial effusion. Patient does appear to have a Bochdalek's hernia with portion the gastric fundus extending through the hernia defect. No acute wall thickening or edema at this site. Liver shows a mild fatty infiltration pattern with no liver lesion. No portal vein abnormality peer g allbladder is absent. No biliary tree dilatation. Spleen is absent. No solid or cystic mass seen within the pancreatic parenchyma. There is mild peripancreatic stranding involving the head, body and tail. Coarse calcifications are present along the deep margin of the pricilla dy and tail of the pancreas. Symmetric renal function is seen with no hydronephrosis or suspicious renal mass. No pyelonephritis o r acute parenchymal process. No bladder abnormalities. No adrenal abnormalities. Benign-appearing r enal cysts present. No dilated bowel loops or bowel wall thickening. Sigmoid colon anastomotic site shows no acute findin g. There is moderate stool volume in the colon. No free air or free fluid. No hernia, mass or bulky lymphadenopathy. No suspicious bony findings. IMPRESSION: Mild acute pancreatitis findings are present. No mass, pseudocyst or other emergent find ing. Additional nonacute findings detailed in the body of the report.
[2021-04-08 12:50] LABS: Urine Blood Negative (Negative); Urine Glucose 2+ (Negative); Urine Protein 1+ (Negative); Urine Specific Gravity 1.025 (1.005-1.030); Urine pH 6.5 (5.0-7.0)
[2021-04-08 13:05] LABS: Urine RBC <5 /HPF (NONE SEEN)
[2021-04-08 13:06] LABS: Calcium Oxalate Crystals- Ur FEW (NONE SEEN); Urine Bacteria NONE SEEN /HPF (NONE SEEN)
--- NOTE | 2021-04-08 13:38 | ER ---
Nurse's Notes [facility] Name: Anish Leon Age: 70 yrs Sex: Male : 1950 Arrival Date: 04/08/2021 Time: 10:11 Bed 28 Private MD: Ruy Stock Diagnosis: Acute pancreatitis Presentation: 04/08 10:22 Chief complaint: Patient states: Epigastric pain, radiates to back, feels like stabbing jl7 x 3 days, N/V, normal BMs, hx of pancreatitis and reports this feels similar. Coronavirus screen: Client denies travel out of the [place] in the last 14 days. At this time, the client does not indicate any symptoms associated with coronavirus-19. Ebola Screen: No symptoms or risks identified at this time. Initial Sepsis Screen: Does the patient meet any 2 criteria? No. Patient's initial sepsis screen is negative. Does the patient have a suspected source of infection? No. Patient's initial sepsis screen is negative. Risk Assessment: Do you want to hurt yourself or someone else? Patient reports no desire to harm self or others. Onset of symptoms was April 06, 2021. 10:22 Method Of Arrival: Wheelchair jl7 10:22 Acuity: DESHAWN 3 jl7 Historical: - Allergies: 10:28 Zoloft; jl7 - Home Meds: 10:28 amlodipine 10 mg tab 1 tab once daily [Active]; aspirin 81 mg Oral chew 1 tab once jl7 daily [Active]; carvedilol 12.5 mg Oral tab 1 tab 2 times per day [Active]; carvedilol 12.5 mg Oral tab 1 tab 2 times per day [Active]; cyclobenzaprine 10 mg Oral tab 1 tab 3 times per day [Active]; duloxetine 60 mg Oral cpDR twice a day [Active]; gabapentin 300 mg Oral cap 1 cap 3 times per day [Active]; Flomax 0.4 mg Oral cp24 1 cap once daily [Active]; irbesartan 300 mg Oral tab 1 tab once daily [Active]; metformin 500 mg Oral tab 1 tab 2 times per day [Active]; metoprolol tartrate 100 mg Oral tab 1 tab 2 times per day [Active]; Trintellix 10 mg Oral tab 1 tab once daily [Active]; valsartan 320 mg Oral tab 1 tab once daily [Active]; - PMHx: 10:28 Diabetes - NIDDM; Hypertension; neuron pain; Pancreatitis; prostate problems; jl7 - PSHx: 10:28 right knee amputation; Cholecystectomy; Appendectomy; splenectomy; jl7 - Immunization history:: Adult Immunizations up to date, Client reports receiving the 2nd dose of the Covid vaccine. - Social history:: Smoking status: Patient denies any tobacco usage or history of. Screenin:49 Abuse screen: Denies threats or abuse. Nutritional screening: No deficits noted. vg1 Tuberculosis screening: No symptoms or risk factors identified. Fall Risk No fall in past 12 months (0 pts). No secondary diagnosis (0 pts). IV access (20 points). Ambulatory Aid- Crutches/Cane/Walker (15 pts). Gait- Impaired (20 pts.). Mental Status- Oriented to own ability (0 pts). Total Jackson Fall Scale indicates High Risk Score (45 or more points). Fall prevention measures have been instituted. Side Rails Up X 2 Placed Close to Nursing Station Family Present and informed to notify staff if the need to leave the bedside. Assessment: 10:48 General: Appears in no apparent distress. comfortable, Behavior is calm, cooperative. vg1 Pain: Complains of pain in epigastric area, right upper quadrant and left upper quadrant Pain currently is 8 out of 10 on a pain scale. Pain began 2-3 days ago. Noted to be grimacing. Neuro: Level of Consciousness is awake, alert, obeys commands, Oriented to person, place, time, situation. Cardiovascular: Patient's skin is warm and dry. Respiratory: Airway is patent Respiratory effort is even, unlabored. GI: Bowel sounds present X 4 quads. Abdomen is tender to palpation in epigastric area and right upper quadrant. : No signs and/or symptoms were reported regarding the genitourinary system. EENT: No signs and/or symptoms were reported regarding the EENT system. Derm: Skin is intact, Skin is pink, warm \T\ dry. Musculoskeletal: Amputation of Right above the knee. 12:47 Reassessment: Patient appears in no apparent distress at this time. Patient and/or vg1 family updated on plan of care and expected duration. Pain level reassessed. Patient is alert, oriented x 3, equal unlabored respirations, skin warm/dry/pink. 20:00 Reassessment: Patient appears in no apparent distress at this time. Patient and/or wh family updated on plan of care and expected duration. Pain level reassessed. Patient is alert, oriented x 3, equal unlabored respirations, skin warm/dry/pink. Vital Signs: 10:22 BP 113 / 93; Pulse 79; Resp 16; Temp 98.4; Pulse Ox 96% ; Weight 114.76 kg; Height 6 jl7 ft. 0 in. (182.88 cm); Pain 8/10; 10:49 BP 108 / 76; Pulse 70; Resp 18; Pulse Ox 95% on R/A; vg1 12:00 BP 122 / 72; Pulse 70; Resp 16; Pulse Ox 98% on R/A; vg1 13:00 BP 129 / 70; Pulse 70; Resp 16; Pulse Ox 98% on R/A; vg1 14:00 BP 133 / 78; Pulse 72; Resp 16; Pulse Ox 97% on R/A; vg1 15:00 BP 114 / 76; Pulse 72; Resp 16; Pulse Ox 98% ; vg1 20:30 BP 134 / 58; Pulse 70; Resp 18; Pulse Ox 96% on R/A; wh 10:22 Body Mass Index 34.31 (114.76 kg, 182.88 cm) jl7 ED Course: 10:11 Patient arrived in ED. mr 10:11 Ruy Stock DO is Private Physician. mr 10:26 Triage completed. jl7 10:28 Arm band placed on right wrist. jl7 10:34 Krish Nj PA is PHCP. cp 10:34 Pete Dickinson MD is Attending Physician. cp 10:42 Geri Fair, AMANDO is Primary Nurse. vg1 10:50 Patient has correct armband on for positive identification. Placed in gown. Bed in low vg1 position. Call light in reach. Side rails up X2. Adult w/ patient. 11:15 Missed attempt(s): 22 gauge in right antecubital area. vg1 11:25 Initial lab(s) drawn, by me, sent to lab. vg1 11:27 Inserted saline lock: 22 gauge in right forearm, using aseptic technique. ,using sv aseptic technique. diffusics Blood collected. Flushed right forearm with 2 ml normal saline. 11:[address] via stretcher. 1 11:49 Lactate Sent. 5 11:49 Magnesium Sent. 5 11:50 Basic Metabolic Panel Sent. 5 11:50 CBC with Diff Sent. 5 11:50 Hepatic Function Sent. 5 11:50 Lipase Sent. 5 12:29 Notified Nurse Practitioner and/or Physician Rapid Extractor Operator of a critical lab result(s), sv lactate-2.2. 13:37 Patrick Warren MD is Hospitalizing Provider. cp 15:09 COVID swab sent to lab. vg1 20:35 No provider procedures requiring assistance completed. Patient admitted, IV remains in place. Administered Medications: 10:32 Drug: Pepcid (famotidine) 20 mg Route: IVP; Site: right wrist; vg1 12:05 Follow up: Response: No adverse reaction vg1 10:33 Drug: morphine 4 mg Route: IVP; Site: right wrist; vg1 12:05 Follow up: Response: No adverse reaction; Pain is decreased vg1 11:30 Drug: Zofran (Ondansetron) 4 mg Route: IVP; Site: right wrist; vg1 12:05 Follow up: Response: No adverse reaction; Nausea is decreased vg1 12:05 Drug: NS 0.9% 500 ml Route: IV; Rate: bolus; Site: right wrist; vg1 12:46 Follow up: IV Status: Completed infusion; IV Intake: 500ml vg1 12:40 Drug: NS 0.9% 500 ml Route: IV; Rate: 100 ml/hr; Site: right wrist; vg1 20:36 Follow up: Response: No adverse reaction; IV Status: Completed infusion 13:47 Drug: morphine 4 mg Route: IVP; Site: right wrist; em 20:36 Follow up: Response: No adverse reaction; Pain is increased; RASS: Alert and Calm (0) 14:11 Drug: Magnesium Sulfate 1 grams Route: IVPB; Infused Over: 1 hrs; Site: right wrist; vg1 20:36 Follow up: Response: No adverse reaction; IV Status: Completed infusion 14:11 Drug: NS 0.9% 1000 ml Route: IV; Rate: 1 bolus; Site: right wrist; vg1 20:36 Follow up: Response: No adverse reaction; IV Status: Completed infusion Intake: 12:46 IV: 500ml; Total: 500ml. vg1 Outcome: 13:37 Decision to Hospitalize by Provider. cp 20:35 Admitted to Med/surg accompanied by nurse, via stretcher, room 228, with chart, Report wh called to Maria Fernanda Alvarez RN 20:35 Condition: stable 20:35 Instructed on the need for admit. 20:39 Patient left the ED. Signatures: Xi Enriquez, RN RN Nadja Iyer mr Blanton, Eric, RN RN Krish Segal PA PA cp Martinez, Maria [facility] Karin Mendez, RN RN jl7 Stephanie Coffman, RN Geri Vazquez, RN RN vg1
--- NOTE | 2021-04-08 13:38 | EDPHYS ---
Physician Documentation [facility] Name: Anish Leon Age: 70 yrs Sex: Male : 1950 Arrival Date: 04/08/2021 Time: 10:11 Bed 28 Private MD: Ruy Stock ED Physician Pete Dickinson HPI: 04/08 10:50 This 70 yrs old Male presents to ER via Wheelchair with complaints of cp Abdominal Pain. 10:50 The patient presents with abdominal pain in the epigastric area. Onset: The cp symptoms/episode began/occurred 3 day(s) ago. The symptoms radiate to back. Associated signs and symptoms: Pertinent positives: anorexia, nausea, Pertinent negatives: blood in stools, chest pain, constipation, diarrhea, fever, active vomiting. The symptoms are described as constant. Modifying factors: the symptoms are aggravated by pressure. Historical: - Allergies: 10:28 Zoloft; jl7 - Home Meds: 10:28 amlodipine 10 mg tab 1 tab once daily [Active]; aspirin 81 mg Oral chew 1 tab once jl7 daily [Active]; carvedilol 12.5 mg Oral tab 1 tab 2 times per day [Active]; carvedilol 12.5 mg Oral tab 1 tab 2 times per day [Active]; cyclobenzaprine 10 mg Oral tab 1 tab 3 times per day [Active]; duloxetine 60 mg Oral cpDR twice a day [Active]; gabapentin 300 mg Oral cap 1 cap 3 times per day [Active]; Flomax 0.4 mg Oral cp24 1 cap once daily [Active]; irbesartan 300 mg Oral tab 1 tab once daily [Active]; metformin 500 mg Oral tab 1 tab 2 times per day [Active]; metoprolol tartrate 100 mg Oral tab 1 tab 2 times per day [Active]; Trintellix 10 mg Oral tab 1 tab once daily [Active]; valsartan 320 mg Oral tab 1 tab once daily [Active]; - PMHx: 10:28 Diabetes - NIDDM; Hypertension; neuron pain; Pancreatitis; prostate problems; jl7 - PSHx: 10:28 right knee amputation; Cholecystectomy; Appendectomy; splenectomy; jl7 - Immunization history:: Adult Immunizations up to date, Client reports receiving the 2nd dose of the Covid vaccine. - Social history:: Smoking status: Patient denies any tobacco usage or history of. ROS: 10:55 Constitutional: Negative for body aches, chills, fever, poor PO intake. cp 10:55 Eyes: Negative for injury, pain, redness, and discharge. cp 10:55 ENT: Negative for ear pain, sore throat, difficulty swallowing, difficulty handling secretions. 10:55 Cardiovascular: Negative for chest pain, edema, palpitations. 10:55 Respiratory: Negative for cough, shortness of breath, wheezing. 10:55 Abdomen/GI: Positive for abdominal pain, nausea, Negative for vomiting, diarrhea, constipation. 10:55 Back: Positive for radiated pain. 10:55 Neuro: Negative for altered mental status, headache, weakness. 10:55 All other systems are negative. Exam: 11:00 Constitutional: The patient appears in no acute distress, alert, awake, cp non-diaphoretic, non-toxic, well developed, well nourished, obese. 11:00 Head/Face: Normocephalic, atraumatic. cp 11:00 Eyes: Periorbital structures: appear normal, Conjunctiva: normal, no exudate, no injection, Sclera: no appreciated abnormality, Lids and lashes: appear normal, bilaterally. 11:00 ENT: External ear(s): are unremarkable, Nose: is normal, Mouth: Lips: moist, Oral mucosa: moist, Posterior pharynx: Airway: no evidence of obstruction, patent. 11:00 Chest/axilla: Inspection: normal, Palpation: is normal, no crepitus, no tenderness. 11:00 Cardiovascular: Rate: normal, Rhythm: regular. 11:00 Respiratory: the patient does not display signs of respiratory distress, Respirations: normal, no use of accessory muscles, no retractions, labored breathing, is not present, Breath sounds: are clear throughout, no decreased breath sounds, no stridor, no wheezing. 11:00 Abdomen/GI: Inspection: distension, is not seen, scar(s), are noted in the , Bowel sounds: active, all quadrants, Palpation: soft, in all quadrants, moderate abdominal tenderness, in the epigastric area, rebound tenderness, is not appreciated, voluntary guarding, is elicited in the epigastric area. 11:00 Back: CVA tenderness, is absent. Vital Signs: 10:22 BP 113 / 93; Pulse 79; Resp 16; Temp 98.4; Pulse Ox 96% ; Weight 114.76 kg; Height 6 jl7 ft. 0 in. (182.88 cm); Pain 8/10; 10:49 BP 108 / 76; Pulse 70; Resp 18; Pulse Ox 95% on R/A; vg1 12:00 BP 122 / 72; Pulse 70; Resp 16; Pulse Ox 98% on R/A; vg1 13:00 BP 129 / 70; Pulse 70; Resp 16; Pulse Ox 98% on R/A; vg1 14:00 BP 133 / 78; Pulse 72; Resp 16; Pulse Ox 97% on R/A; vg1 15:00 BP 114 / 76; Pulse 72; Resp 16; Pulse Ox 98% ; vg1 20:30 BP 134 / 58; Pulse 70; Resp 18; Pulse Ox 96% on R/A; wh 10:22 Body Mass Index 34.31 (114.76 kg, 182.88 cm) jl7 MDM: 10:37 Patient medically screened. cp 13:37 Patient medically screened. cp 13:37 Data reviewed: vital signs, nurses notes, lab test result(s), radiologic studies, CT cp scan. 13:37 Counseling: I had a detailed discussion with the patient and/or guardian regarding: the cp historical points, exam findings, and any diagnostic results supporting the discharge/admit diagnosis, lab results, radiology results. 04/08 10:44 Order name: Basic Metabolic Panel cp 04/08 10:44 Order name: CBC with Diff cp 04/08 10:44 Order name: Hepatic Function cp 04/08 10:44 Order name: Lipase cp 04/08 10:44 Order name: Magnesium cp 04/08 10:44 Order name: Lactate cp 04/08 11:46 Order name: CBC with Automated Diff; Complete Time: 11:57 EDMS 04/08 11:57 Interpretation: Normal except: WBC 13.40; PLT 420; MNA 1.6. cp 04/08 11:59 Order name: Basic Metabolic Panel; Complete Time: 13:02 EDMS 04/08 13:03 Interpretation: Normal except: NA 133; GLUC 287; GFR 86. cp 04/08 11:59 Order name: Liver (Hepatic) Function; Complete Time: 13:02 EDMS 04/08 13:04 Interpretation: Normal except: AST 12; ALB 3.2; GLOB 4.3; A/G 0.7. cp 04/08 11:59 Order name: Magnesium; Complete Time: 13:02 EDPR 04/08 11:59 Order name: Lipase; Complete Time: 13:02 EDPR 04/08 12:10 Order name: CREATININE WHOLE BLOOD; Complete Time: 13:02 EDPR 04/08 12:30 Order name: Lactate; Complete Time: 13:02 EDPR 04/08 10:51 Order name: CT Abd/Pelvis - IV Contrast Only cp 04/08 12:18 Order name: CT; Complete Time: 13:02 EDPR 04/08 12:50 Order name: Urine Dipstick-Ancillary; Complete Time: 13:02 EDPR 04/08 13:06 Order name: Urine Microscopic Only; Complete Time: 13:32 EDPR 04/08 14:51 Order name: COVID-19 : Document "Date of Symptom Onset" if Symptomatic. sv 04/08 15:47 Order name: Lactate Sepsis 2 HR Follow-up EDPR 04/08 16:27 Order name: CORONAVIRUS EDPR 04/08 17:29 Order name: SARS-COV-2 RT PCR EDPR 04/08 18:21 Order name: Glucose, Ancillary Testing EDPR 04/08 10:44 Order name: IV Saline Lock; Complete Time: 11:33 cp 04/08 10:44 Order name: Labs collected and sent; Complete Time: 11:33 cp 04/08 10:44 Order name: Urine Dipstick-Ancillary (obtain specimen); Complete Time: 12:49 cp Administered Medications: 10:32 Drug: Pepcid (famotidine) 20 mg Route: IVP; Site: right wrist; vg1 12:05 Follow up: Response: No adverse reaction vg1 10:33 Drug: morphine 4 mg Route: IVP; Site: right wrist; vg1 12:05 Follow up: Response: No adverse reaction; Pain is decreased vg1 11:30 Drug: Zofran (Ondansetron) 4 mg Route: IVP; Site: right wrist; vg1 12:05 Follow up: Response: No adverse reaction; Nausea is decreased vg1 12:05 Drug: NS 0.9% 500 ml Route: IV; Rate: bolus; Site: right wrist; vg1 12:46 Follow up: IV Status: Completed infusion; IV Intake: 500ml vg1 12:40 Drug: NS 0.9% 500 ml Route: IV; Rate: 100 ml/hr; Site: right wrist; vg1 20:36 Follow up: Response: No adverse reaction; IV Status: Completed infusion 13:47 Drug: morphine 4 mg Route: IVP; Site: right wrist; em 20:36 Follow up: Response: No adverse reaction; Pain is increased; RASS: Alert and Calm (0) 14:11 Drug: Magnesium Sulfate 1 grams Route: IVPB; Infused Over: 1 hrs; Site: right wrist; vg1 20:36 Follow up: Response: No adverse reaction; IV Status: Completed infusion 14:11 Drug: NS 0.9% 1000 ml Route: IV; Rate: 1 bolus; Site: right wrist; vg1 20:36 Follow up: Response: No adverse reaction; IV Status: Completed infusion Disposition: 04/09 07:48 Co-signature as Attending Physician, Pete Dickinson MD. rn Disposition: 04/08/21 13:37 Hospitalization ordered by Patrick Warren for Inpatient Admission. Preliminary diagnosis is Acute pancreatitis. - Bed requested for Telemetry/MedSurg (Inpatient). - Status is Inpatient Admission. - Condition is Stable. - Problem is new. - Symptoms have improved. Signatures: Dispatcher [employer] Xi Cortez, RN Eric Nick, RN AMANDO Pete Dickinson MD MD rn Page, Corey, PA PA cp Garcia, Cindy, AMANDO GOEL Karin Mendez RN RN jl7 Stephanie Coffman RN RN Geri Fair RN RN vg1 Corrections: (The following items were deleted from the chart) 04/08 11:51 10:44 UA MICROSCOPIC+U.LAB.BRZ ordered. EDPR EDMS 11:57 11:57 Normal except: WBC 13.40; PLT 420. cp cp 17:59 13:37 Hospitalization Ordered by Patrick Warren MD for Inpatient Admission. Preliminary sv diagnosis is Acute pancreatitis. Bed requested for Telemetry/MedSurg (Inpatient). Status is Inpatient Admission. Condition is Stable. Problem is new. Symptoms have improved. cp 19:48 17:59 04/08/2021 13:37 Hospitalization Ordered by Patrick Warren MD for Inpatient cg Admission. Preliminary diagnosis is Acute pancreatitis. Bed requested for [facility] ER HOLD. Status is Inpatient Admission. Condition is Stable. Problem is new. Symptoms have improved. sv 20:39 19:48 04/08/2021 13:37 Hospitalization Ordered by Patrick Warren MD for Inpatient Admission. Preliminary diagnosis is Acute pancreatitis. Bed requested for Telemetry/MedSurg (Inpatient). Status is Inpatient Admission. Condition is Stable. Problem is new. Symptoms have improved. cg
--- NOTE | 2021-04-08 14:10 | P.HP ---
Certification for Inpatient Patient admitted to: Inpatient With expected LOS: >2 Midnights Practitioner: I am a practitioner with admitting privileges, knowledge of patient current condition, hospital course, and medical plan of care. Services: Services provided to patient in accordance with Admission requirements found in Title 42 Section 412.3 of the Code of Federal Regulations Patient History Date of Service: 04/08/21 Reason for admission: Abdominal pain History of Present Illness: 60-year-old male with past medical history of diabetes, hypertension, neuropathy, history of recurrent pancreatitis, BPH, right knee amputation, history of diverticulosis status post partial colectomy came to ER with abdominal pain which started 2 days ago and has been progressively worsening and was brought to ER, 28 Diabetes - NIDDM; Hypertension; neuron pain; Pancreatitis; prostate problems; jl7 - PSHx: 10:28 right knee amputation; Cholecystectomy; Appendectomy; splenectomy; Allergies sertraline [From Zoloft] Allergy (Verified 06/06/20 02:10) Hives/Rash Home medications list reviewed: Yes Home Medications: Duloxetine HCl [Cymbalta] 60 mg PO BID 06/06/20 Gabapentin 300 mg PO TID 06/06/20 Metformin HCl [Metformin HCl ER] 750 mg PO BID 06/06/20 Simvastatin 20 mg PO BEDTIME 06/06/20 Hydrocodone 10/APAP 325 [[place]win 10/325*] 1 tab PO Q6HR #30 tab 06/09/20 Metoprolol Tartrate [Lopressor*] 50 mg PO BID 6AM 6PM #60 tab 06/09/20 - Past Medical/Surgical History Diabetic: Yes Past Medical History: Reviewed- Non-Contributory -: HTN -: Diabetes mellitus -: psoriasis -: arthritis -: neuropathy Past Surgical History: Reviewed- Non-Contributory -: cholecystectomy -: spleenectomy -: lumbar surgery -: left knee replacement -: 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 -: appendectomy -: hemorrhoid surgery -: colectomy - Family History Mother -: Heart disease Father -: Lung disease grandfather -: Other (see notes) Notes: liver cirrhosis - Social History Smoking Status: Former smoker Alcohol use: No CD- Drugs: No Caffeine use: Yes Review of Systems 10-point ROS is otherwise unremarkable Gastrointestinal: Abdominal Pain Physical Examination - Vital Signs Temperature: 98.2 F Blood Pressure: 162/84 Pulse: 78 Respirations: 18 Pulse Ox (%): 94 - Physical Exam General: Alert, In no apparent distress, Oriented x3, Obese HEENT: Atraumatic, Normocephalic Neck: Supple, 2+ carotid pulse no bruit Respiratory: Clear to auscultation bilaterally, Normal air movement Cardiovascular: Regular rate/rhythm, Normal S1 S2 Capillary refill: <2 Seconds Gastrointestinal: Soft and benign, Tenderness Musculoskeletal: No clubbing, No swelling, Other (S/p R Amputation ) Integumentary: No rashes, No breakdown Neurological: Normal speech, Normal strength at 5/5 x4 extr Lymphatics: No axilla or inguinal lymphadenopathy Urinary: Other (No bladder distention ) - Studies Laboratory Data (last 24 hrs) 04/08/21 11:25: WBC 13.40 H, Hgb 13.8, Hct 42.4, Plt Count 420 H 04/08/21 11:25: Sodium 133 L, Potassium 4.3, BUN 10, Creatinine 0.88, Glucose 287 H, Magnesium 1.7 L, Total Bilirubin 0.6, AST 12 L, ALT 20, Alkaline Phosphatase 105, Lipase 783 H Assessment and Plan - Problems (Diagnosis) (1) Acute pancreatitis Current Visit: No Status: Acute Plan: Acute on chronic pancreatitis NPO Pain control. IV fluids GI consulted Idiopathic versus drug induced Denies any alcohol history Discussed about treatment options and need for followup CT showed mild acute pancreatitis with no pseudocyst or abscess (2) Epigastric abdominal pain Current Visit: No Status: Acute Plan: Possible due to pancreatitis Pain control. Continue PPI (3) Leukocytosis Onset Date: 01/09/15 Current Visit: No Status: Acute Plan: Has a history of intra-abdominal abscess previously CT showing no acute changes apart from pancreatitis Will monitor CBC daily Hold off on antibiotics for now (4) Obesity (BMI 30-39.9) Current Visit: No Status: Acute Plan: Advice lifestyle modification and regular exercise (5) Depression Onset Date: 12/29/17 Current Visit: No Status: Chronic Plan: Continue home medications Qualifiers: (6) Diabetes mellitus Onset Date: 01/09/15 Current Visit: No Status: Chronic Plan: Hyperglycemia noted Insulin sliding scale. Will get an A1c in a.m. Will titrate insulin and add on basal insulin if needed Qualifiers: Diabetes mellitus complication status: with hyperglycemia (7) Hypertension Onset Date: 12/29/17 Current Visit: No Status: Chronic Plan: Continue home medications and titrate as needed Antihypertensives titrated Qualifiers: (8) Hyponatremia Current Visit: Yes Status: Acute Plan: Monitor electrolytes and replace accordingly. Continue IV hydration Discharge Plan: Home Plan to discharge in: 72 Hours - Advance Directives Does patient have a Living Will: Yes Does patient have a Durable POA for Healthcare: Yes - Code Status/Comfort Care Code Status: Full Code Time Spent Managing Pts Care (In Minutes): 43
[2021-04-08] MEDS ORDERED: MORPHINE 2 MG/ML SYR IV PRN (14:11)
[2021-04-08] MEDS ORDERED: ACETAMINOPHEN 500 MG TAB PO PRN (14:11)
[2021-04-08] MEDS ORDERED: MAGNESIUM SULFATE 1 gm IVPB 1 GM/100 ML BAG IV ONE (14:19)
[2021-04-08] MEDS: Ringers Lactate 1,000 ML IV SCH ×2 (18:05→23:00)
[2021-04-08] MEDS ORDERED: Ringers Lactate 1,000 ML IV ONE (18:19)
[2021-04-08] MEDS ORDERED: MORPHINE 2 MG/ML SYR ONE (18:19)
[2021-04-08] MEDS: INSULIN -REGULAR HUMAN 50 UNIT/0.5 ML ML SQ SCH ×2 (18:20→22:14)
[2021-04-08] MEDS ORDERED: INSULIN -REGULAR HUMAN 50 UNIT/0.5 ML ML ONE (18:34)
[2021-04-08 20:00] VITALS: BMI 34.2
[2021-04-08] MEDS: MORPHINE 4 MG/ML SYR IV PRN (20:19)
[2021-04-09] MEDS: MORPHINE 4 MG/ML SYR IV PRN ×6 (01:07→21:17)
[2021-04-09] MEDS: Ringers Lactate 1,000 ML IV SCH ×4 (03:00→21:34)
[2021-04-09 04:04] LABS: Absolute Lymphocytes (CBC) 4.4 K/uL (0.7-4.9); Basophils % 0.9 % (0-1.3); Hematocrit 39.9 % (39.6-49.0); Lymphocytes % 34.2 % (15.3-44.8); MPV 9.5 fL (7.6-11.3); RBC Red Blood Cell Count 4.27 M/uL (4.33-5.43)
[2021-04-09 04:21] LABS: ALT/SGPT 91 U/L (12-78); AST/SGOT 152 U/L (15-37); Alkaline Phosphatase 140 U/L (45-117); BUN Blood Urea Nitrogen 8 mg/dL (7-18); Bicarbonate 28 mmol/L (21-32); Bilirubin Total 1.2 mg/dL (0.2-1.0); Glucose Level 138 mg/dL (74-106); HDL Cholesterol 35 mg/dL (40-60); LDL Cholesterol, Calculated 84 (<130); Potassium 4.1 mmol/L (3.5-5.1); Protein, Total 6.6 g/dL (6.4-8.2); Sodium Level 139 mmol/L (136-145)
[2021-04-09] MEDS: INSULIN -REGULAR HUMAN 50 UNIT/0.5 ML ML SQ SCH ×3 (07:30→21:35)
[2021-04-09] MEDS: ONDANSETRON 4 MG/2 ML VIAL IV PRN ×2 (09:00→16:49)
[2021-04-09] MEDS ORDERED: INSULIN -REGULAR HUMAN 50 UNIT/0.5 ML ML SQ SCH (12:00)
[2021-04-09] MEDS ORDERED: SODIUM CHLORIDE 0.9% 10ML INJ IV PRN (15:07)
[2021-04-09] MEDS ORDERED: PANTOPRAZOLE 40 MG INJ IVP ONE (16:00)
--- NOTE | 2021-04-09 18:28 | P.PN ---
Subjective Date of Service: 04/09/21 Chief Complaint: Abdominal pain Patient is complaining of persistent abdominal pain. He wants his diet advanced. Physical Examination - Vital Signs Temperature: 97.2 F Blood Pressure: 176/87 Pulse: 92 Respirations: 20 Pulse Ox (%): 96 - Physical Exam General: Alert, In no apparent distress, Oriented x3 HEENT: Mucous membr. moist/pink, Sclerae nonicteric Neck: Supple, JVD not distended Respiratory: Clear to auscultation bilaterally, Normal air movement Cardiovascular: No edema, Regular rate/rhythm, Normal S1 S2 Gastrointestinal: Normal bowel sounds, Soft and benign, Non-distended, Tenderness (Mild epigastric tenderness) Musculoskeletal: No swelling, No tenderness Integumentary: No rashes, No erythema Neurological: Normal strength at 5/5 x4 extr Assessment And Plan - Current Problems (Diagnosis) (1) Acute pancreatitis Current Visit: No Status: Acute (2) Chronic pain disorder Onset Date: 12/29/17 Current Visit: No Status: Chronic (3) Diabetes mellitus Onset Date: 01/09/15 Current Visit: No Status: Chronic Qualifiers: Diabetes mellitus complication status: with hyperglycemia (4) Hyponatremia Current Visit: Yes Status: Acute - Plan Hyponatremia resolved. Patient still complaining of abdominal pain. GI input appreciated. Continue supportive measures. Start clear liquid diet Pain management as needed. MRCP requested by GI. Check lipase level in a.m. Continue IV fluid.
--- NOTE | 2021-04-09 19:06 | RAD REPORT ---
EXAM DESCRIPTION: MRI - Cholangiogram - 04/09/2021 6:55 pm CLINICAL HISTORY: evaluate PD and CBD, recurrent pancreatitis Abdominal pain COMPARISON: Cholangiogram dated 06/06/2020; Abdomen Pelvis W Contrast dated 1Cholangiogram dated 06/06/2020; Abdomen Pelvis W Contrast dated 04/08/2021 FINDINGS: Three-dimensional MRCP was performed using maximum intensity projection reconstruction on the same work station. No intrahepatic biliary tree dilatation is seen. Mild prominence of the common bile duct and pancreat ic duct again seen, unchanged since comparative MRCP. Gallbladder is absent. Significant blooming artifact is present limiting assessment of the upper abdominal content. IMPRESSION: No significant change is seen in the mild biliary tree and pancreatic duct prominence si nce 06/06/2020 study. There is no evidence retained CBD stone. Cholecystectomy.
[2021-04-09] MEDS ORDERED: GABAPENTIN 300 MG CAP PO PRN (20:08)
[2021-04-09] MEDS ORDERED: CYCLOBENZAPRINE 10 MG TAB PO PRN ×2 (20:08→20:11)
[2021-04-09] MEDS: VALSARTAN 160 MG TAB PO SCH (21:18)
[2021-04-09] MEDS: DULOXETINE 30 MG CAP PO SCH (21:20)
[2021-04-10] MEDS: MORPHINE 4 MG/ML SYR IV PRN ×6 (01:08→22:05)
[2021-04-10 05:46] LABS: Absolute Lymphocytes (CBC) 4.3 K/uL (0.7-4.9); Basophils % 1.2 % (0-1.3); Hematocrit 42.6 % (39.6-49.0); Lymphocytes % 30.5 % (15.3-44.8); MPV 9.4 fL (7.6-11.3); RBC Red Blood Cell Count 4.55 M/uL (4.33-5.43)
[2021-04-10 05:59] LABS: ALT/SGPT 80 U/L (12-78); AST/SGOT 76 U/L (15-37); Albumin 3.1 g/dL (3.4-5.0); Alkaline Phosphatase 177 U/L (45-117); BUN Blood Urea Nitrogen 5 mg/dL (7-18); Bicarbonate 23 mmol/L (21-32); Glucose Level 219 mg/dL (74-106); Lipase 809 U/L (73-393); Protein, Total 7.4 g/dL (6.4-8.2); Sodium Level 133 mmol/L (136-145)
[2021-04-10] MEDS: Ringers Lactate 1,000 ML IV SCH ×2 (06:09→18:00)
[2021-04-10] MEDS: METOPROLOL TAR 50 MG TAB PO SCH ×2 (06:09→18:01)
[2021-04-10] MEDS: ASPIRIN EC 81 MG TAB PO SCH (09:06)
[2021-04-10] MEDS: INSULIN -REGULAR HUMAN 50 UNIT/0.5 ML ML SQ SCH ×4 (09:06→20:36)
[2021-04-10] MEDS: DULOXETINE 30 MG CAP PO SCH ×2 (09:06→20:37)
--- NOTE | 2021-04-10 17:25 | P.PN ---
Subjective Date of Service: 04/10/21 Chief Complaint: Abdominal pain Patient states he feels better though is getting pain medication around the clock. Lipase remain elevated. Physical Examination - Vital Signs Temperature: 98.2 F Blood Pressure: 149/74 Pulse: 83 Respirations: 18 Pulse Ox (%): 98 - Physical Exam General: Alert, In no apparent distress HEENT: Mucous membr. moist/pink Respiratory: Clear to auscultation bilaterally, Normal air movement Cardiovascular: No edema, Regular rate/rhythm, Normal S1 S2 Gastrointestinal: Normal bowel sounds, Soft and benign, Non-distended, No tenderness Musculoskeletal: No swelling, No tenderness Integumentary: No rashes Neurological: Normal strength at 5/5 x4 extr Assessment And Plan - Current Problems (Diagnosis) (1) Acute pancreatitis Current Visit: No Status: Acute (2) Chronic pain disorder Onset Date: 12/29/17 Current Visit: No Status: Chronic (3) Diabetes mellitus Onset Date: 01/09/15 Current Visit: No Status: Chronic Qualifiers: Diabetes mellitus complication status: with hyperglycemia (4) Hyponatremia Current Visit: Yes Status: Acute - Plan Hyponatremia resolved. GI input appreciated. MRCP is unremarkable. Continue supportive measures. Continue clear liquid diet Pain management as needed. Serial lipase Continue IV hydration.
[2021-04-10] MEDS: VALSARTAN 160 MG TAB PO SCH (20:37)
[2021-04-11 00:12] VITALS: O2SAT 98
[2021-04-11] MEDS: Ringers Lactate 1,000 ML IV SCH ×3 (00:31→10:31)
[2021-04-11] MEDS: MORPHINE 4 MG/ML SYR IV PRN ×3 (02:01→12:20)
[2021-04-11] MEDS: METOPROLOL TAR 50 MG TAB PO SCH (05:48)
[2021-04-11] MEDS: ONDANSETRON 4 MG/2 ML VIAL IV PRN (05:55)
[2021-04-11 06:25] LABS: Absolute Lymphocytes (CBC) 3.8 K/uL (0.7-4.9); Basophils % 0.2 % (0-1.3); Hematocrit 42.3 % (39.6-49.0); Lymphocytes % 39.5 % (15.3-44.8); MPV 9.4 fL (7.6-11.3); RBC Red Blood Cell Count 4.48 M/uL (4.33-5.43)
[2021-04-11 06:41] LABS: ALT/SGPT 81 U/L (12-78); AST/SGOT 86 U/L (15-37); Albumin 2.9 g/dL (3.4-5.0); Alkaline Phosphatase 181 U/L (45-117); BUN Blood Urea Nitrogen 6 mg/dL (7-18); Bicarbonate 27 mmol/L (21-32); Glucose Level 202 mg/dL (74-106); Lipase 415 U/L (73-393); Potassium 4.1 mmol/L (3.5-5.1); Sodium Level 134 mmol/L (136-145)
[2021-04-11] MEDS: DULOXETINE 30 MG CAP PO SCH (08:10)
[2021-04-11] MEDS: ASPIRIN EC 81 MG TAB PO SCH (08:10)
[2021-04-11] MEDS: INSULIN -REGULAR HUMAN 50 UNIT/0.5 ML ML SQ SCH ×2 (08:10→13:04)
--- NOTE | 2021-04-11 13:31 | P.DS ---
Admission Date: 04/08/21 Discharge Date: 04/11/21 Disposition: ROUTINE DISCHARGE Discharge Condition: FAIR Reason for Admission: Abdominal pain Consultations: GI-Dr. Damon. - Problems (1) Acute pancreatitis Status: Acute (2) Chronic pain disorder Onset Date: 12/29/17 Status: Chronic (3) Diabetes mellitus Onset Date: 01/09/15 Status: Chronic Qualifiers: Diabetes mellitus complication status: with hyperglycemia (4) Hyponatremia Status: Acute Brief History of Present Illness: 60-year-old gentleman with a history of diabetes from hypertension, neuropathy, history of recurrent pancreatitis, BPH, right knee amputation, history of diverticulosis presented to the emergency department with a complaint of progressively worsening abdominal pain of 2 days duration. Lipase level elevated in the ED. CT abdomen and pelvis reported findings suggestive of mild acute pancreatitis. Patient was admitted for further management. Hospital Course: Patient admitted to the medical floor and treated supportively with IV hydration, IV opioids p.r.n. for pain. He was initially kept NPO and later diet advanced to a liquid diet which he tolerated. Patient seen in consultation by GI, MRCP requested was unremarkable. Lipase level trended down. Patient is asymptomatic today and deemed stable for discharge. Vital Signs/Physical Exam: Temp Pulse Resp BP Pulse Ox 97.8 F 72 18 144/67 H 98 04/11/21 08:00 04/11/21 08:00 04/11/21 12:20 04/11/21 08:00 04/11/21 12:20 General: Alert, In no apparent distress, Oriented x3 HEENT: Mucous membr. moist/pink, Sclerae nonicteric Respiratory: Clear to auscultation bilaterally, Normal air movement Cardiovascular: No edema, Regular rate/rhythm, Normal S1 S2 Gastrointestinal: Normal bowel sounds, Soft and benign, Non-distended, No tenderness Musculoskeletal: No swelling Integumentary: No rashes Neurological: Normal strength at 5/5 x4 extr Laboratory Data at Discharge: WBC 9.60 K/uL (4.3-10.9) D 04/11/21 05:42 Hgb 13.8 g/dL (13.6-17.9) 04/11/21 05:42 Hct 42.3 % (39.6-49.0) 04/11/21 05:42 Plt Count 350 K/uL (152-406) 04/11/21 05:42 Sodium 134 mmol/L (136-145) L 04/11/21 05:42 Potassium 4.1 mmol/L (3.5-5.1) 04/11/21 05:42 BUN 6 mg/dL (7-18) L 04/11/21 05:42 Creatinine 0.73 mg/dL (0.55-1.3) 04/11/21 05:42 Glucose 202 mg/dL (74-106) H 04/11/21 05:42 Magnesium 1.7 mg/dL (1.8-2.4) L 04/08/21 11:25 Total Bilirubin 2.0 mg/dL (0.2-1.0) H 04/11/21 05:42 AST 86 U/L (15-37) H 04/11/21 05:42 ALT 81 U/L (12-78) H 04/11/21 05:42 Alkaline Phosphatase 181 U/L (45-117) H 04/11/21 05:42 Triglycerides 153 mg/dL (<150) H 04/09/21 03:34 Cholesterol 150 mg/dL (<200) 04/09/21 03:34 HDL Cholesterol 35 mg/dL (40-60) L 04/09/21 03:34 Cholesterol/HDL Ratio 4.29 04/09/21 03:34 Lipase 415 U/L (73-393) H 04/11/21 05:42 Home Medications: Duloxetine HCl [Cymbalta] 60 mg PO BID 06/06/20 Gabapentin 300 mg PO TID PRN 06/06/20 Metformin HCl [Metformin HCl ER] 750 mg PO BID 06/06/20 Metoprolol Tartrate [Lopressor*] 50 mg PO BID 6AM 6PM #60 tab 06/09/20 Aspirin [Aspirin EC 81 MG] 1 tab PO DAILY 04/09/21 Cyclobenzaprine [Flexeril*] 1 tab PO PRN PRN 04/09/21 Valsartan 1 tab PO BEDTIME 04/09/21 resveratroL [Resveratrol] 1 cap PO DAILY 04/09/21 Physician Discharge Instructions: PROBLEM: Pancreatitis GOAL: Clear understanding of disease process INSTRUCTIONS: Diet: diabetic Activity: As tolerated If you have any questions regarding your stay call [phone] If your symptoms worsen call 911 or go to the ED. Diet: ADA (Progress from soft diet and advance to solid diet over the next 3 days.) Activity: Ad zen Followup: Ruy Stock, [Primary Care Provider] - 1-2 Weeks Jean Damon MD [ACTIVE - CAN ADMIT] - 1-2 Weeks (Call to make an appointment. ) Time spent managing pt's care (in minutes): 35
[2021-04-11 14:18] VITALS: BP 132/79; TEMP 97
== END 2021-04-11 16:15 | disposition home or self-care (01) | DRG 439 ==
LOC: ER 10:05 → ERHOLD 14:12 → 2ND 20:37
PROVIDERS: ADMIT Family Medicine; ATTEND Internal Medicine
DX: K85.80 Other acute pancreatitis without necrosis or infection (principal); E87.1 Hypo-osmolality and hyponatremia; K86.1 Other chronic pancreatitis; E11.40 Type 2 diabetes mellitus with diabetic neuropathy, unspecified; E11.65 Type 2 diabetes mellitus with hyperglycemia; D72.829 Elevated white blood cell count, unspecified; F32.9 Major depressive disorder, single episode, unspecified; I10 Essential (primary) hypertension; E66.9 Obesity, unspecified; R52 Pain, unspecified; Z79.82 Long term (current) use of aspirin; Z79.84 Long term (current) use of oral hypoglycemic drugs; Z79.899 Other long term (current) drug therapy; Z89.611 Acquired absence of right leg above knee; Z90.49 Acquired absence of other specified parts of digestive tract; Z88.8 Allergy status to other drugs, medicaments and biological substances; Z96.651 Presence of right artificial knee joint; Z87.891 Personal history of nicotine dependence; Z68.34 Body mass index [BMI] 34.0-34.9, adult; Z20.822 Contact with and (suspected) exposure to COVID-19
CPT/HCPCS: 36415; 74177; 74181; 80048; 80053; 80061; 80076; 81003; 81015; 82565; 82947; 83605; 83690; 83735; 85025; 96361; 96365; 96366; 96375; 99285; C9113; J2270; J2405; J3475; J7030; J7120; Q9967; U0003

== ENCOUNTER 2021-07-06 16:07 | Inpatient (IN) | payer OTHER ==
--- OUTSIDE RECORDS SUMMARY | 2021-07-06 16:11 | XMS REPORT | Continuity of Care Document ---
:1950 Author Organization [facility] t Address [address] [place] [address] Dr. Jaeger. [address] [place] [address] Care Team Providers Name Role Phone YAHAIRA Primary Care Physician Unavailable SYSTEM, NOT IN Attending Clinician Unavailable Yahaira SELF Attending Clinician YAHAIRA Attending Clinician Unavailable Jonathan GOEL Attending Clinician Unavailable Payers Payer Name Policy Type Policy Effective Date Expiration Date Sour Number MEDICAREMEDICARE PART [id number] 2009 MD Jaime Friend AND 00:00:00 [id number] 2008-P [id number] [facility], [place] SEN[place] [id number] 2018 MD Sandoval SUPPLEMENTAETNA [facility] 00:00:00 SUPPLEMENT-SECONDARY [id number] 8-PresentMedigap Problems This patient has no known problems. Allergies, Adverse Reactions, Alerts This patient has no known allergies or adverse reactions. Social History Social Habit Start Date Stop Date Quantity Comments Source Sex Ass[birth year] At [birth year] MD Sandoval 00:00:00 00:00:00 Medications This patient has no known medications. Vital Signs Vital Name Observation Time Observation Value Comments Source Body temperature 2020-07-09 20:00:00 35.78 Yris MD Ronna siddiqui Procedures Procedure Date / Time Performed Performing Clinician [facility] e 2018-NCOV COVID-19 2020-07-09 20:23:00 Spike Whyte MD And byron Encounters Start End Encounter Admission Attending Care Care Encounter Source Date/Time Date/Time Type Type Clinicians Facility Department ID 2020-07-22 Outpatient SYSTEM, [facility] [id number] 10:27:39 PROVIDER Doe o n 2020-07-18 2020-07-18 Outpatient GE, SPIKE ROBERT MDA [id number] 13:04:26 13:04:26 Doe o n 2020-07-18 2020-07-18 Outpatient GE, SPIKE ROBERT MDA [id number] 13:04:22 13:04:22 Doe o n 2020-07-18 2020-07-18 Outpatient GE, SPIKE ROBERT MDA [id number] 13:03:54 13:03:54 Doe o n 2020-07-18 2020-07-18 Outpatient GE, SPIKE ROBERT MDA [id number] 13:03:53 13:03:53 Doe o n 2020-07-18 2020-07-18 Outpatient GE, SPIKE ROBERT MDA [id number] 13:03:52 13:03:52 Doe o n 2020-07-18 2020-07-18 Outpatient GE, SPIKE ROBERT MDA [id number] 13:03:51 13:03:51 Doe o n 2020-07-18 2020-07-18 Outpatient GE, SPIKE ROBERT MDA [id number] 13:03:50 13:03:50 Doe o n 2020-07-11 2020-07-11 Outpatient EL GE, SPIKE ROBERT MDA [id number] 00:00:00 00:00:00 Doe o n 2020-07-09 2020-07-09 Outpatient EL GE, SPIKE ROBERT MDA [id number] 15:17:45 15:17:45 Doe o n Results Test Description Test Time Test Comments Results Result Comments Source MD COVID-19 (TANNER-CoV-2) PCR Asymptomatic 2020-07-10 19:45:04 Test Item Value Reference Range Interpretation Comme nts COVID19 SARS Indication (test New Patient code = 26310) COVID19 SARS Result (test code Not Detected Not Detected = 38881-6) COVID19 SARS Interpretation SARS-CoV-2 NOT Detected. Reference (test code = 59948) Range: Not Detected Methodology: The Min RealTime SARS-CoV-2 assay is a qualitative real-time reverse laundry assistant polymerase chain reaction (shuttleless loom weaver-PCR) test to detect RNA from SARS-CoV-2 in nasal, nasopharyngeal and oropharyngeal swabs from patients with signs and symptoms of infection who are suspected of COVID-19 by their health care provider. The Min RealTime SARS-CoV-2 performed on the [employer] System is a dual target assay with [...] CLIA-certified, high-complexity [facility] ([facility]) at [facility] under the Food and Drug Administration (FDA) s Emergency Use Authorization. Factsheet for patients: https://www.[facility].org/AbbottFactS heetPatientsFactsheet for healthcare providers: https://www.[facility].org/AbbottFactS heetHCP Test performed by:[facility] [address] [place] [address] MD Sandoval
[2021-07-06] MEDS ORDERED: MORPHINE 4 MG/ML SYR ONE ×2 (20:12→22:21)
[2021-07-06] MEDS ORDERED: FAMOTIDINE 20 MG/2 ML VIAL IV ONE (20:12)
[2021-07-06] MEDS ORDERED: ONDANSETRON 4 MG/2 ML VIAL ONE (20:12)
[2021-07-06] MEDS ORDERED: NA CHLORIDE 0.9% 500 ML ONE ×2 (20:12→21:40)
[2021-07-06 20:19] LABS: Absolute Lymphocytes (CBC) 3.9 K/uL (0.7-4.9); Basophils % 1.2 % (0-1.3); Hematocrit 45.3 % (39.6-49.0); Lymphocytes % 23.3 % (15.3-44.8); MPV 9.1 fL (7.6-11.3); RBC Red Blood Cell Count 4.75 M/uL (4.33-5.43)
[2021-07-06 20:42] LABS: Albumin 3.5 g/dL (3.4-5.0); Bilirubin Direct 0.1 mg/dL (0-0.2); Bilirubin Total 0.4 mg/dL (0.2-1.0); Potassium 5.4 mmol/L (3.5-5.1); Protein, Total 7.3 g/dL (6.4-8.2)
--- NOTE | 2021-07-06 20:50 | RAD REPORT ---
EXAM DESCRIPTION: CTAbdomen Pelvis W Contrast - 07/06/2021 8:32 pm CLINICAL HISTORY: Abdominal pain. Abd pain;Nausea / vomiting COMPARISON: Abdomen Pelvis W Contrast dated 04/08/2021; Abdomen Pelvis W Contrast dated 12/14/2019 ; Abdomen Pelvis W Contrast dated 06/09/2019; Abdomen Pelvis W Contrast dated 09/30/2018 TECHNIQUE: Biphasic CT imaging of the abdomen and pelvis was performed with 100 ml non-ionic IV cont rast. All CT scans are performed using dose optimization technique as appropriate and may include automated exposure control or mA/KV adjustment according to patient size. FINDINGS: The lung bases are clear.Scattered coronary artery calcifications. Hepatic steatosis. Cholecystectomy. 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 Increasing peripancreatic stranding is noted. The pancreatic tail is atrophic versus surgically ab sent. There is a small filling defect at the distal common bile duct. Low-density renal lesions which are statistically benign. Scarring along the lower pole the right kidney. Absent spleen. Partial bow el resection. No retroperitoneal lymphadenopathy. Abdominal aortic atherosclerosis without aneurysm. Prostate unremarkable. Moderate stool in the rectum. The bladder is unremarkable. The lateral fusion at L5-S1. No fractures are seen. No suspicious bony findings. IMPRESSION: Moderate acute pancreatitis. Question defect in the distal common bile duct could repres ent choledocholithiasis. No peripancreatic fluid collections.
[2021-07-06 22:04] LABS: Urine Blood Negative (Negative); Urine Glucose 2+ (Negative); Urine Protein Negative (Negative); Urine pH 5.5 (5.0-7.0)
--- NOTE | 2021-07-06 22:13 | RAD REPORT ---
EXAM DESCRIPTION: US - Abdomen Exam Limited - 07/06/2021 9:55 pm CLINICAL HISTORY: RUQ;Abd pain COMPARISON: Abdomen Pelvis W Contrast dated 07/06/2021 FINDINGS: Status post cholecystectomy. Limited visualization of the pancreas. The common bile duct m easures 3 millimeters and is nondilated. No other significant abnormality identified IMPRESSION: Cholecystectomy. No biliary ductal dilatation.
--- NOTE | 2021-07-06 22:25 | EDPHYS ---
Physician Documentation [facility] Name: Anish Leon Age: 71 yrs Sex: Male : 1950 Arrival Date: 07/06/2021 Time: 16:13 Bed 2 Private MD: ED Physician Casey Engel HPI: 07/06 19:05 This 71 yrs old Male presents to ER via Wheelchair with complaints of Upper mh7 Abd Pain. 19:05 The patient presents with abdominal pain in the epigastric area. Onset: The mh7 symptoms/episode began/occurred today, at 12:00. The symptoms do not radiate. Associated signs and symptoms: Pertinent positives: nausea, Pertinent negatives: anorexia, blood in stools, chest pain, constipation, diarrhea, dysuria, fever, headache, hematuria, palpitations, shortness of breath, testicular pain, vomiting, vomiting blood. The symptoms are described as intermittent, vague, waxing/waning. Modifying factors: The symptoms are alleviated by nothing, the symptoms are aggravated by food, touching the area. Severity of pain: At its worst the pain was moderate today, in the emergency department the pain is unchanged. The patient has experienced similar episodes in the past, multiple times. Patient reports a prior history of pancreatitis with similar pain started today. He has had some nausea but denies any vomiting. Denies any fever, chest pain, shortness of breath, dysuria.. Historical: - Allergies: 16:53 Zoloft; ss - PMHx: 16:53 Diabetes - NIDDM; Hypertension; neuron pain; Pancreatitis; prostate problems; ss - Immunization history:: Client reports receiving the 2nd dose of the Covid vaccine. - Social history:: Smoking status: Patient denies any tobacco usage or history of. ROS: 19:05 Constitutional: Negative for fever, chills, and weight loss, Eyes: Negative for injury, mh7 pain, redness, and discharge, ENT: Negative for injury, pain, and discharge, Neck: Negative for injury, pain, and swelling, Cardiovascular: Negative for chest pain, palpitations, and edema, Respiratory: Negative for shortness of breath, cough, wheezing, and pleuritic chest pain, Back: Negative for injury and pain, : Negative for injury, bleeding, discharge, and swelling, MS/Extremity: Negative for injury and deformity, Skin: Negative for injury, rash, and discoloration, Neuro: Negative for headache, weakness, numbness, tingling, and seizure, Psych: Negative for depression, anxiety, suicide ideation, homicidal ideation, and hallucinations, Allergy/Immunology: Negative for hives, rash, and allergies, Endocrine: Negative for neck swelling, polydipsia, polyuria, polyphagia, and marked weight changes, Hematologic/Lymphatic: Negative for swollen nodes, abnormal bleeding, and unusual bruising. Exam: 19:05 Constitutional: This is a well developed, well nourished patient who is awake, alert, mh7 and in no acute distress. Head/Face: Normocephalic, atraumatic. Eyes: Pupils equal round and reactive to light, extra-ocular motions intact. Lids and lashes normal. Conjunctiva and sclera are non-icteric and not injected. Cornea within normal limits. Periorbital areas with no swelling, redness, or edema. Neck: Trachea midline, no thyromegaly or masses palpated, and no cervical lymphadenopathy. Supple, full range of motion without nuchal rigidity, or vertebral point tenderness. No Meningismus. Chest/axilla: Normal chest wall appearance and motion. Nontender with no deformity. No lesions are appreciated. Cardiovascular: Regular rate and rhythm with a normal S1 and S2. No gallops, murmurs, or rubs. Normal PMI, no JVD. No pulse deficits. Respiratory: Lungs have equal breath sounds bilaterally, clear to auscultation and percussion. No rales, rhonchi or wheezes noted. No increased work of breathing, no retractions or nasal flaring. 19:05 Back: No spinal tenderness. No costovertebral tenderness. Full range of motion. Skin: Warm, dry with normal turgor. Normal color with no rashes, no lesions, and no evidence of cellulitis. MS/ Extremity: Pulses equal, no cyanosis. Neurovascular intact. Full, normal range of motion. Neuro: Awake and alert, GCS 15, oriented to person, place, time, and situation. Cranial nerves II-XII grossly intact. Motor strength 5/5 in all extremities. Sensory grossly intact. Cerebellar exam normal. Normal gait. Psych: Awake, alert, with orientation to person, place and time. Behavior, mood, and affect are within normal limits. 19:05 Abdomen/GI: Inspection: obese scar(s), are noted in the epigastric area and suprapubic area, Bowel sounds: normal, in all quadrants, Palpation: moderate abdominal tenderness, in the epigastric area, mass, is not appreciated, rebound tenderness, is not appreciated, voluntary guarding, is not appreciated, involuntary guarding, is not appreciated, no appreciated organomegaly, Rectal exam: the exam is deferred, because of patient request, Indicators: McBurney's point is not tender, Wolf's sign is negative, Rovsing's sign is negative, Obturator sign is negative, Psoas sign is negative, Liver: no appreciated palpable abnormalities, Hernia: not appreciated. 19:05 Musculoskeletal/extremity: Right lower extremity amputation. [facility] Vital Signs: 16:49 Pulse 72; Resp 18; Temp 97.2(TE); Pulse Ox 97% on R/A; Weight 113.4 kg; Height 6 ft. 0 ss in. (182.88 cm); Pain 9/10; 16:53 BP 120 / 67; ss 22:49 BP 142 / 82; Pulse 69; Resp 16; Pulse Ox 99% on R/A; em 16:49 Body Mass Index 33.91 (113.40 kg, 182.88 cm) ss MDM: 22:22 Differential diagnosis: bowel obstruction, diverticulitis, gastritis, gastroesophageal mh7 reflux disease, non-specific abd pain, pancreatitis, Peptic Ulcer Disease, urinary tract infection. Data reviewed: vital signs, nurses notes, old medical records, lab test result(s), amylase and lipase, CBC, electrolytes, urinalysis, EKG, radiologic studies, CT scan, ultrasound. Data interpreted: Pulse oximetry: on room air is 97 %. Interpretation: normal. Counseling: I had a detailed discussion with the patient and/or guardian regarding: the historical points, exam findings, and any diagnostic results supporting the discharge/admit diagnosis, lab results, radiology results, the need for further work-up and treatment in the hospital. Response to treatment: the patient's symptoms have mildly improved after treatment. 22:25 Patient medically screened. [facility] 07/06 19:13 Order name: Basic Metabolic Panel; Complete Time: 20:48 07/06 19:13 Order name: CBC with Diff; Complete Time: 20:29 07/06 19:13 Order name: Hepatic Function; Complete Time: 20:48 ea 07/06 19:13 Order name: Lipase; Complete Time: 20:48 ea 07/06 22:04 Order name: Urine Dipstick-Ancillary; Complete Time: 22:09 EDMS 07/07 00:20 Order name: SARS-COV-2 RT PCR EDMS 07/07 01:05 Order name: Glucose, Ancillary Testing EDMS 07/07 03:58 Order name: Comprehensive Metabolic Panel EDMS 07/07 03:58 Order name: Phosphorus EDMS 07/07 03:58 Order name: Lipid Profile EDMS 07/07 03:58 Order name: C-Reactive Protein EDMS 07/07 03:58 Order name: Magnesium EDMS 07/07 03:58 Order name: Amylase EDMS 07/06 19:23 Order name: CT Abd/Pelvis - IV Contrast Only; Complete Time: 20:56 [facility] 07/06 21:01 Order name: US Abdomen Limited; Complete Time: 22:15 [facility] 07/07 03:58 Order name: Lipase EDMS 07/07 04:49 Order name: Manual Differential EDMS 07/07 04:52 Order name: CBC with Automated Diff EDMS 07/07 06:56 Order name: CREATININE WHOLE BLOOD EDMS 07/07 07:52 Order name: Glucose, Ancillary Testing EDMS 07/07 10:02 Order name: PTT, Activated Partial Thromb EDMS 07/07 10:14 Order name: Lactate EDMS 07/07 10:34 Order name: Blood Culture EDMS 07/07 11:51 Order name: MRI EDMS 07/07 12:38 Order name: Glucose, Ancillary Testing EDMS 07/07 12:56 Order name: Lactate Sepsis 2 HR Follow-up EDMS 07/07 12:58 Order name: RAD EDMS 07/07 13:12 Order name: Procalcitonin EDMS 07/06 19:13 Order name: IV Saline Lock; Complete Time: 19:41 ea 07/06 19:13 Order name: Labs collected and sent; Complete Time: 19:41 07/06 19:13 Order name: EKG - Nurse/Tech; Complete Time: 21:09 07/06 19:13 Order name: EKG; Complete Time: 19:13 07/06 19:20 Order name: Urine Dipstick-Ancillary (obtain specimen); Complete Time: 21:09 mh7 Administered Medications: 20:00 Drug: NS 0.9% 500 ml Route: IV; Rate: bolus; Site: right forearm; em 21:09 Follow up: IV Status: Completed infusion; IV Intake: 500ml em 20:00 Drug: morphine 4 mg Route: IVP; Site: right forearm; em 21:08 Follow up: Response: No adverse reaction; Marked relief of symptoms; Pain is decreased em 20:00 Drug: Zofran (Ondansetron) 4 mg Route: IVP; Site: right forearm; em 21:08 Follow up: Response: No adverse reaction em 20:00 Drug: Pepcid (famotidine) 20 mg Route: IVP; Site: right forearm; em 21:08 Follow up: Response: No adverse reaction em 21:09 Drug: NS 0.9% 500 ml Route: IV; Rate: bolus; Site: right forearm; em 22:50 Follow up: IV Status: Completed infusion; IV Intake: 500ml em 22:03 Drug: morphine 4 mg Route: IVP; Site: right forearm; em 22:50 Follow up: Response: No adverse reaction; Marked relief of symptoms; Pain is decreased em 22:09 Drug: NS 0.9% 500 ml Route: IV; Rate: bolus; Site: right forearm; em 22:50 Follow up: IV Status: Completed infusion; IV Intake: 500ml em 23:56 Drug: Insulin Regular Human 10 units {Co-Signature: felipe (Maria Fernanda Rowe RN).} Route: IVP; em Site: right forearm; 07/07 00:55 Follow up: Response: No adverse reaction; Blood sugar is lowered em Disposition Summary: 07/06/21 22:25 Hospitalization Ordered Hospitalization Status: Inpatient Admission [facility] Provider: Terrence Greene Hector Condition: Stable [facility] Problem: an acute exacerbation 7 Symptoms: have improved [facility] Bed/Room Type: Standard [facility] Location: Telemetry/MedSurg (Inpatient)(07/07/21 15:10) dw Room Assignment: [facility](07/07/21 15:10) Diagnosis - Acute Pancreatitis [facility] Forms: - Medication Reconciliation Form [facility] - SBAR form [facility] Signatures: Dispatcher [employer] Fozia Vanegas RN RN mw Woody, Diana, RN RN dw Munoz, Edgar, RN RN Ann Sultana, RN Maria Fernanda Addison, RN Casey Walker ea, MD MD [facility] Martin Kirby PA PA Maria Fernanda Rowe RN, ea Corrections: (The following items were deleted from the chart) 07/06 23:28 19:54 CORONAVIRUS+.BRZ ordered. EDMS EDMS 07/07 00:23 07/06 22:25 Telemetry/MedSurg (Inpatient) [facility] mw 07/07 00:23 07/06 22:25 [facility] mw 07/07 15:10 00:23 [facility] ER HOLD mw dw 15:10 00:23 ERHOLD- mw dw
--- NOTE | 2021-07-06 22:25 | ER ---
Nurse's Notes [facility] Name: Anish Leon Age: 71 yrs Sex: Male : 1950 Arrival Date: 07/06/2021 Time: 16:13 Bed 2 Private MD: Diagnosis: Acute Pancreatitis Presentation: 07/06 16:49 Chief complaint: Patient states: Sharp epigastric pain with mild nausea that began at ss 1200 today. Pt reports that he has a history of pancreatitis and believes this may be another flare up. Coronavirus screen: Client denies travel out of the [place] in the last 14 days. Ebola Screen: Patient denies exposure to infectious person. Patient denies travel to an Ebola-affected area in the 21 days before illness onset. Initial Sepsis Screen: Does the patient meet any 2 criteria? No. Patient's initial sepsis screen is negative. Does the patient have a suspected source of infection? No. Patient's initial sepsis screen is negative. Risk Assessment: Do you want to hurt yourself or someone else? Patient reports no desire to harm self or others. Onset of symptoms was July 06, 2021. 16:49 Method Of Arrival: Wheelchair ss 16:49 Acuity: DESHAWN 3 ss Historical: - Allergies: 16:53 Zoloft; ss - PMHx: 16:53 Diabetes - NIDDM; Hypertension; neuron pain; Pancreatitis; prostate problems; ss - Immunization history:: Client reports receiving the 2nd dose of the Covid vaccine. - Social history:: Smoking status: Patient denies any tobacco usage or history of. Screenin:17 Abuse screen: Denies threats or abuse. Nutritional screening: No deficits noted. em Tuberculosis screening: No symptoms or risk factors identified. Fall Risk None identified. Assessment: 19:30 General: Appears in no apparent distress. uncomfortable, Behavior is calm, cooperative, em appropriate for age. Pain: Complains of pain in abdomen Pain currently is 9 out of 10 on a pain scale. Neuro: Level of Consciousness is awake, alert, obeys commands, Oriented to person, place, time, situation. Cardiovascular: Capillary refill < 3 seconds Patient's skin is warm and dry. Respiratory: Airway is patent Respiratory effort is even, unlabored, Respiratory pattern is regular, symmetrical. GI: Reports nausea. Derm: Skin is intact, is thin, Skin is pink, warm \T\ dry. Musculoskeletal: Capillary refill < 3 seconds, Range of motion: intact in all extremities. 22:49 Reassessment: Patient appears in no apparent distress at this time. Patient and/or em family updated on plan of care and expected duration. Pain level reassessed. Patient is alert, oriented x 3, equal unlabored respirations, skin warm/dry/pink. Vital Signs: 16:49 Pulse 72; Resp 18; Temp 97.2(TE); Pulse Ox 97% on R/A; Weight 113.4 kg; Height 6 ft. 0 ss in. (182.88 cm); Pain 9/10; 16:53 BP 120 / 67; ss 22:49 BP 142 / 82; Pulse 69; Resp 16; Pulse Ox 99% on R/A; em 16:49 Body Mass Index 33.91 (113.40 kg, 182.88 cm) ED Course: 16:13 Patient arrived in ED. ds1 16:53 Triage completed. ss 16:53 Arm band placed on right wrist. 19:06 Casey Engel MD is Attending Physician. [facility] 19:41 Eric Blanton, AMANDO is Primary Nurse. em 20:17 Patient has correct armband on for positive identification. Bed in low position. Call em light in reach. Adult w/ patient. 20:32 CT Abd/Pelvis - IV Contrast Only In Process Unspecified. EDMS 21:55 US Abdomen Limited In Process Unspecified. EDMS 22:24 Terrence Greene DO is Hospitalizing Provider. [facility] 07/07 02:05 No provider procedures requiring assistance completed. Patient admitted, IV remains in em place. Administered Medications: 07/06 20:00 Drug: NS 0.9% 500 ml Route: IV; Rate: bolus; Site: right forearm; em 21:09 Follow up: IV Status: Completed infusion; IV Intake: 500ml em 20:00 Drug: morphine 4 mg Route: IVP; Site: right forearm; em 21:08 Follow up: Response: No adverse reaction; Marked relief of symptoms; Pain is decreased em 20:00 Drug: Zofran (Ondansetron) 4 mg Route: IVP; Site: right forearm; em 21:08 Follow up: Response: No adverse reaction em 20:00 Drug: Pepcid (famotidine) 20 mg Route: IVP; Site: right forearm; em 21:08 Follow up: Response: No adverse reaction em 21:09 Drug: NS 0.9% 500 ml Route: IV; Rate: bolus; Site: right forearm; em 22:50 Follow up: IV Status: Completed infusion; IV Intake: 500ml em 22:03 Drug: morphine 4 mg Route: IVP; Site: right forearm; em 22:50 Follow up: Response: No adverse reaction; Marked relief of symptoms; Pain is decreased em 22:09 Drug: NS 0.9% 500 ml Route: IV; Rate: bolus; Site: right forearm; em 22:50 Follow up: IV Status: Completed infusion; IV Intake: 500ml em 23:56 Drug: Insulin Regular Human 10 units {Co-Signature: felipe (Maria Fernanda Rowe RN).} Route: IVP; em Site: right forearm; 07/07 00:55 Follow up: Response: No adverse reaction; Blood sugar is lowered em Intake: 07/06 21:09 IV: 500ml; Total: 500ml. em 22:50 IV: 500ml; Total: 1000ml. em 22:50 IV: 500ml; Total: 1500ml. em Outcome: 22:25 Decision to Hospitalize by Provider. [facility] 07/07 02:05 Admitted to ER Hold. Please see [facility] for further documentation. em Condition: stable Instructed on the need for admit, Demonstrated understanding of instructions. 16:22 Patient left the ED. [email or web address] Signatures: Dispatcher [employer] Eric Muniz RN RN Diane Robles ds1 Ann Adame RN RN Krain Mendez RN RN 7 Casey Engel MD MD [facility] Maria Fernanda Rowe RN, ea
[2021-07-07] MEDS ORDERED: ALBUTEROL 2.5 MG/3 ML NEB SOL NEB PRN (00:12)
[2021-07-07] MEDS ORDERED: NA CHLORIDE 0.9% 1,000 ML IV SCH (00:12)
[2021-07-07] MEDS ORDERED: HYDRALAZINE HCL 20 MG/ML VIAL IV PRN (00:12)
[2021-07-07] MEDS ORDERED: INSULIN -REGULAR HUMAN 50 UNIT/0.5 ML ML ONE ×2 (00:16→08:58)
[2021-07-07 00:24] VITALS: BMI 33.9
--- NOTE | 2021-07-07 00:25 | P.HP ---
Certification for Inpatient Patient admitted to: Inpatient With expected LOS: >2 Midnights Patient will require the following post-hospital care: None Practitioner: I am a practitioner with admitting privileges, knowledge of patient current condition, hospital course, and medical plan of care. Services: Services provided to patient in accordance with Admission requirements found in Title 42 Section 412.3 of the Code of Federal Regulations Patient History Date of Service: 07/07/21 Reason for admission: pancreatitis History of Present Illness: Mr. Leon is a 71 yo M with DM, HTN, neuropathy, BPH, and history of recurrent pancreatitis who presents with 10/10 epigastric pain beginning at 11:30am. He says the pain is consistent with previous episodes. Pain now improved to 5/10 after morphine. He reports nausea and vomiting as well. WBC 16.5. Na 133, K 5.4. GFR 59. Glu 360. Lipase 3193. CT abdomen shows moderate acute pancreatitis with no peripancreatic fluid collections. US abdomen shows no biliary ductal dilatation. Allergies sertraline [From Zoloft] Allergy (Verified 06/06/20 02:10) Hives/Rash Home Medications: Duloxetine HCl [Cymbalta] 60 mg PO BID 06/06/20 Gabapentin 300 mg PO TID PRN 06/06/20 Metformin HCl [Metformin HCl ER] 750 mg PO BID 06/06/20 Metoprolol Tartrate [Lopressor*] 50 mg PO BID 6AM 6PM #60 tab 06/09/20 Aspirin [Aspirin EC 81 MG] 1 tab PO DAILY 04/09/21 Cyclobenzaprine [Flexeril*] 1 tab PO PRN PRN 04/09/21 Valsartan 1 tab PO BEDTIME 04/09/21 resveratroL [Resveratrol] 1 cap PO DAILY 04/09/21 - Past Medical/Surgical History Diabetic: Yes -: HTN -: Diabetes mellitus -: neuropathy -: arthritis -: neuropathy -: cholecystectomy -: spleenectomy -: lumbar surgery -: left knee replacement -: 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 -: appendectomy -: hemorrhoid surgery -: colectomy - Family History Mother -: Heart disease Father -: Lung disease, Liver disease grandfather -: Other (see notes) Notes: liver cirrhosis - Social History Alcohol use: No CD- Drugs: No Caffeine use: Yes Review of Systems 10-point ROS is otherwise unremarkable Gastrointestinal: Nausea, Vomiting, Abdominal Pain Physical Examination - Physical Exam General: Alert, In no apparent distress HEENT: Atraumatic, PERRLA, Mucous membr. moist/pink, EOMI, Sclerae nonicteric Neck: Supple, 2+ carotid pulse no bruit, No LAD, Without JVD or thyroid abnormality Respiratory: Clear to auscultation bilaterally, Normal air movement Cardiovascular: Regular rate/rhythm, Normal S1 S2 Gastrointestinal: Normal bowel sounds, Soft and benign, Non-distended, No ascites, No masses, No rebound, No guarding, Tenderness Musculoskeletal: No tenderness, Other (right AKA) Integumentary: No rashes Neurological: Normal speech, Normal strength at 5/5 x4 extr, Normal tone, Normal affect Lymphatics: No axilla or inguinal lymphadenopathy - Studies Laboratory Data (last 24 hrs) 07/06/21 20:00: WBC 16.50 H, Hgb 15.0, Hct 45.3, Plt Count 377 07/06/21 20:00: Sodium 133 L, Potassium 5.4 H, BUN 24 H, Creatinine 1.22, Glucose 360 H, Total Bilirubin 0.4, AST 18, ALT 25, Alkaline Phosphatase 114, Lipase 3193 H Assessment and Plan - Problems (Diagnosis) (1) Acute pancreatitis Current Visit: No Status: Acute Qualifiers: Pancreatitis type: unspecified pancreatitis type Acute pancreatitis complication: no infection or necrosis Qualified Code(s): K85.90 - Acute pancreatitis without necrosis or infection, unspecified (2) Diabetes mellitus Onset Date: 01/09/15 Current Visit: No Status: Chronic Qualifiers: Diabetes mellitus type: type 2 Diabetes mellitus intermodal dispatcher insulin use: unspecified intermodal dispatcher insulin use status Diabetes mellitus complication status: with hyperglycemia Qualified Code(s): E11.65 - Type 2 diabetes mellitus with hyperglycemia (3) Hypertension Onset Date: 12/29/17 Current Visit: No Status: Chronic Qualifiers: Hypertension type: primary hypertension Qualified Code(s): I10 - Essential (primary) hypertension - Plan NPO, advance diet as tolerated continue aggressive IVF hydration pain management as needed accuchecks and sliding scale insulin hydralazine PRN for BP spikes repeat amylase, lipase, CRP reconcile and continue home medications DVT ppx Discharge Plan: Fpc Plan to discharge in: 48 Hours - Advance Directives Does patient have a Living Will: No Does patient have a Durable POA for Healthcare: No - Code Status/Comfort Care Code Status Assessed: Yes (full code ) Critical Care: No Time Spent Managing Pts Care (In Minutes): 70
[2021-07-07] MEDS ORDERED: NA CHLORIDE 0.9% 1,000 ML ONE (00:39)
[2021-07-07] MEDS ORDERED: MORPHINE 4 MG/ML SYR ONE ×3 (02:06→08:57)
[2021-07-07] MEDS: MORPHINE 4 MG/ML SYR IV PRN ×2 (02:35→08:55)
[2021-07-07 03:56] LABS: ALT/SGPT 104 U/L (12-78); Albumin 3.4 g/dL (3.4-5.0); Alkaline Phosphatase 129 U/L (45-117); BUN Blood Urea Nitrogen 19 mg/dL (7-18); Bicarbonate 22 mmol/L (21-32); Bilirubin Total 1.4 mg/dL (0.2-1.0); Glucose Level 215 mg/dL (74-106); HDL Cholesterol 29 mg/dL (40-60); LDL Cholesterol, Calculated 71 (<130); Lipase 5297 U/L (73-393); Phosphorus 3.3 mg/dL (2.5-4.9); Sodium Level 136 mmol/L (136-145)
[2021-07-07 03:57] LABS: AST/SGOT 233 U/L (15-37); Magnesium 1.6 mg/dL (1.8-2.4); Potassium 4.5 mmol/L (3.5-5.1)
[2021-07-07 03:58] LABS: Amylase 370 U/L (25-115)
[2021-07-07 04:49] LABS: Blood Morphology Comment NOT SEEN (NOT SEEN); Platelet Estimate ADEQ
[2021-07-07 04:50] LABS: Absolute Lymphocytes (CBC) 4.3 K/uL (0.7-4.9); Basophils % 1.5 % (0-1.3); Hematocrit 47.3 % (39.6-49.0); Lymphocytes % 22.4 % (15.3-44.8); MPV 9.2 fL (7.6-11.3); RBC Red Blood Cell Count 4.99 M/uL (4.33-5.43)
[2021-07-07] MEDS: ACETAMINOPHEN 500 MG TAB PO PRN (05:06)
[2021-07-07] MEDS: NA CHLORIDE 0.9% 1,000 ML IV SCH ×4 (05:20→22:16)
[2021-07-07] MEDS ORDERED: ACETAMINOPHEN 500 MG TAB ONE (05:25)
[2021-07-07] MEDS ORDERED: METOPROLOL TARTRATE 5 MG/5 ML INJ IV PRN (05:53)
[2021-07-07] MEDS ORDERED: HYDRALAZINE HCL 20 MG/ML VIAL ONE ×2 (06:07→16:20)
--- NOTE | 2021-07-07 06:27 | P.PN ---
Subjective Date of Service: 07/07/21 Chief Complaint: pancreatitis Subjective: Other (Patient still reports some pain. Patient with history of acute on chronic pancreatitis.) Physical Examination - Vital Signs Temperature: 97.6 F Blood Pressure: 194/102 Pulse: 83 Respirations: 15 Pulse Ox (%): 95 - Studies Laboratory Data (last 24 hrs) 07/06/21 20:00: WBC 16.50 H, Hgb 15.0, Hct 45.3, Plt Count 377 07/06/21 20:00: Sodium 133 L, Potassium 5.4 H, BUN 24 H, Creatinine 1.22, Glucose 360 H, Total Bilirubin 0.4, AST 18, ALT 25, Alkaline Phosphatase 114, Lipase 3193 H Assessment & Plan Discharge Plan: Home Plan to discharge in: Greater than 2 days Physician Review Additional Text: COVID: Negative CT Scan: COMPARISON: Abdomen Pelvis W Contrast dated 04/08/2021; Abdomen Pelvis W Contrast dated 12/14/2019; Abdomen Pelvis W Contrast dated 06/09/2019; Abdomen Pelvis W Contrast dated 09/30/2018 TECHNIQUE: Biphasic CT imaging of the abdomen and pelvis was performed with 100 ml non-ionic IV contrast. All CT scans are performed using dose optimization technique as appropriate and may include automated exposure control or mA/KV adjustment according to patient size. FINDINGS: The lung bases are clear.Scattered coronary artery calcifications. Hepatic steatosis. Cholecystectomy. 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 Increasing peripancreatic stranding is noted. The pancreatic tail is atrophic versus surgically absent. There is a small filling defect at the distal common bile duct. Low-density renal lesions which are statistically benign. Scarring along the lower pole the right kidney. Absent spleen. Partial bowel resection. No retroperitoneal lymphadenopathy. Abdominal aortic atherosclerosis without aneurysm. Prostate unremarkable. Moderate stool in the rectum. The bladder is unremarkable. The lateral fusion at L5-S1. No fractures are seen. No suspicious bony findings. IMPRESSION: Moderate acute pancreatitis. Question defect in the distal common bile duct could represent choledocholithiasis. No peripancreatic fluid collections. ABUS: COMPARISON: Abdomen Pelvis W Contrast dated 07/06/2021 FINDINGS: Status post cholecystectomy. Limited visualization of the pancreas. The common bile duct measures 3 millimeters and is nondilated. No other significant abnormality identified IMPRESSION: Cholecystectomy. No biliary ductal dilatation. Physical exam: General: Alert, In no apparent distress HEENT: Atraumatic, PERRLA, Mucous membr. moist/pink, EOMI, Sclerae nonicteric Neck: Supple, 2+ carotid pulse no bruit, No LAD, Without JVD or thyroid abnormality Respiratory: Clear to auscultation bilaterally, Normal air movement Cardiovascular: Regular rate/rhythm, Normal S1 S2 Gastrointestinal: Normal bowel sounds, Soft and benign, Non-distended, No ascites, No masses, No rebound, No guarding, Tenderness Musculoskeletal: No tenderness, Other (right AKA) Integumentary: No rashes Neurological: Normal speech, Normal strength at 5/5 x4 extr, Normal tone, Normal affect Lymphatics: No axilla or inguinal lymphadenopathy Impression: Acute on chronic recurrent pancreatitis with elevated liver function Diabetes mellitus type 2 insulin-dependent Hypertension GERD History of right above-knee amputation Plan: Acute on chronic recurrent pancreatitis with elevated liver function: Patient remains n.p.o. at this time. Patient reports no alcohol use. Patient reports history of pancreatitis in the past. CT scan shows moderate acute pancreatitis. Question of a defect noted to the distal common bile duct on CT scan. Abdominal ultrasound shows no biliary ductal dilatation. Prior cholecystectomy noted. Will order MRCP to further evaluate. Blood cultures obtained. Continue with aggressive IV fluid hydration. Continue with IV medication for pain. Provide medication for nausea. Will start IV Pepcid, thiamine and folate. Will provide DVT prophylaxisLovenox. Will continue to monitor lab closely including CBC, CMP and lipase. Encourage ambulation. Encourage incentive spirometer. Anticipate improvement over the next 72 hours. Diabetes mellitus type 2 insulin-dependent: Continue IV fluids. Will adjust IV fluids accordingly. Insulin sliding scale in place. Will monitor closely. Hypertension: Provide IV medication as needed GERD: Will start IV Pepcid. History of right above-knee amputation: Overall stable CODE STATUS: Full code DVT prophylaxis: Lovenox Advance care [id number] minutes: Home at discharge Time Spent Managing Pts Care (In Minutes): 55
[2021-07-07] MEDS: INSULIN -REGULAR HUMAN 50 UNIT/0.5 ML ML SQ SCH ×4 (07:30→21:00)
[2021-07-07] MEDS: ENOXAPARIN 40 MG/0.4 ML SQ SCH (08:56)
[2021-07-07] MEDS: FOLIC ACID 1 MG in NA CHLORIDE 0.9% 50 ML IV SCH (08:56)
[2021-07-07] MEDS: ONDANSETRON 4 MG/2 ML VIAL IV PRN ×2 (08:56→16:59)
[2021-07-07] MEDS ORDERED: THIAMINE 200 MG/2 ML INJ ONE (08:57)
[2021-07-07] MEDS ORDERED: ONDANSETRON 4 MG/2 ML VIAL ONE (08:57)
[2021-07-07] MEDS: THIAMINE 200 MG/2 ML INJ IVP SCH (08:57)
[2021-07-07] MEDS: FAMOTIDINE 20 MG/2 ML VIAL IV SCH ×2 (08:57→21:09)
[2021-07-07] MEDS ORDERED: FAMOTIDINE 20 MG/2 ML VIAL IV ONE (08:58)
[2021-07-07] MEDS ORDERED: ENOXAPARIN 40 MG/0.4 ML SQ ONE (08:58)
[2021-07-07] MEDS ORDERED: NA CHLORIDE 0.9% 50 ML ONE (08:59)
[2021-07-07] MEDS ORDERED: FOLIC ACID 5 MG/ML VIAL ONE (08:59)
[2021-07-07] MEDS ORDERED: ACETAMINOPHEN 650MG/RECT SUPP PR PRN (10:35)
[2021-07-07] MEDS ORDERED: MAGNESIUM SULFATE 1 gm IVPB 1 GM/100 ML BAG IV ONE (11:06)
--- NOTE | 2021-07-07 11:51 | RAD REPORT ---
EXAM DESCRIPTION: MRI - Cholangiogram - 07/07/2021 11:19 am CLINICAL HISTORY: acute/chronic pancreatitis COMPARISON: Cholangiogram dated 04/09/2021; Cholangiogram dated 06/06/2020; Abdomen Pelvis W Contras t dated 07/06/2021 FINDINGS: Three-dimensional MRCP was performed using maximum intensity projection reconstruction on the same work station. There is apparent narrowing of the proximal to mid common bile duct which is favored to be due to adj acent metallic artifact. There is mild intra and extrahepatic biliary ductal dilatation. Again noted is some duct irregularity and beading of the ducts of the left hepatic lobe. The extrahepatic common bile duct measures 9 millimeters there is a small cystic duct remnant. . No evidence of choledocholit hiasis. Gallbladder surgically absent. The pancreatic duct at the body and tail is not visualized. The downstream duct near the ampulla is v isualized and mildly dilated which is a chronic finding and may be related to sequela of chronic panc reatitis. Limited T2 sequences through the abdomen demonstrates no bulky adenopathy, significant free fluid or abscess. Splenectomy. Miniscule left renal cysts. IMPRESSION: Negative for choledocholithiasis. Surgically absent gallbladder. Mild nonspecific extrahepatic biliary ductal dilatation which may be related to the postcholecystecto my state. Also noted is a beading type morphology of the ducts to the left hepatic lobe which can be seen with entities such as primary sclerosing cholangitis though this would typically be more diffuse . The finding is unchanged. The upstream pancreatic duct is not visualized which could be a manifestation of compression from johnson creatic edema as a result of pancreatitis.
--- NOTE | 2021-07-07 12:57 | RAD REPORT ---
EXAM DESCRIPTION: RAD - Chest Single View - 07/07/2021 12:51 pm CLINICAL HISTORY: leukocytosis, patient with pancreatitis COMPARISON: Portable May 2020 TECHNIQUE: AP portable chest image was obtained 07/07/2021 12:51 pm . FINDINGS: Exam is quite limited. Patient is in a lordotic position with very low lung volumes and keith bstantial amount of overlying soft tissue. No focal mass or consolidation. Retrocardiac left base is the most limited area. Prominent pericardia l fat is present on the left. When adjusting for the technique differences, interstitial pattern is n ot substantially different. Heart and vasculature are normal. No measurable pleural effusion and no p neumothorax. No acute bony abnormality seen. No acute aortic findings suspected. IMPRESSION: Exam is significantly limited as detailed. However, no acute cardiopulmonary process shanice ntifiable.
[2021-07-07] MEDS: MORPHINE 2 MG/ML SYR IV PRN ×2 (13:28→16:58)
[2021-07-07] MEDS ORDERED: MORPHINE 2 MG/ML SYR ONE (13:37)
[2021-07-07] MEDS ORDERED: METOPROLOL TARTRATE 5 MG/5 ML INJ IV ONE (13:47)
[2021-07-07] MEDS ORDERED: NA CHLORIDE 0.9% 1,000 ML IV ONE (14:18)
[2021-07-07] MEDS: HYDRALAZINE HCL 20 MG/ML VIAL IV PRN (15:59)
[2021-07-08] MEDS: NA CHLORIDE 0.9% 1,000 ML IV SCH ×5 (01:20→23:21)
[2021-07-08] MEDS: MORPHINE 2 MG/ML SYR IV PRN ×3 (04:18→21:01)
[2021-07-08 05:19] LABS: Absolute Lymphocytes (CBC) 2.5 K/uL (0.7-4.9); Basophils % 0.3 % (0-1.3); Hematocrit 43.8 % (39.6-49.0); Lymphocytes % 13.1 % (15.3-44.8); MPV 9.4 fL (7.6-11.3); RBC Red Blood Cell Count 4.62 M/uL (4.33-5.43)
[2021-07-08 05:45] LABS: ALT/SGPT 67 U/L (12-78); AST/SGOT 47 U/L (15-37); Alkaline Phosphatase 117 U/L (45-117); BUN Blood Urea Nitrogen 9 mg/dL (7-18); Bicarbonate 21 mmol/L (21-32); Bilirubin Total 1.3 mg/dL (0.2-1.0); Glucose Level 271 mg/dL (74-106); Lipase 709 U/L (73-393); Magnesium 1.5 mg/dL (1.8-2.4); Potassium 4.7 mmol/L (3.5-5.1); Protein, Total 6.7 g/dL (6.4-8.2); Sodium Level 136 mmol/L (136-145)
--- NOTE | 2021-07-08 05:59 | P.PN ---
Subjective Date of Service: 07/08/21 Primary Care Provider: Dr. Stock Chief Complaint: pancreatitis Subjective: Improving (He reports some improvement. Less pain. No significant nausea or vomiting.) Physical Examination - Vital Signs Temperature: 98.8 F Blood Pressure: 142/78 Pulse: 116 Respirations: 18 Pulse Ox (%): 96 Assessment & Plan Discharge Plan: Home Plan to discharge in: 48 Hours Physician Review Additional Text: COVID: Negative CT Scan: COMPARISON: Abdomen Pelvis W Contrast dated 04/08/2021; Abdomen Pelvis W Contrast dated 12/14/2019; Abdomen Pelvis W Contrast dated 06/09/2019; Abdomen Pelvis W Contrast dated 09/30/2018 TECHNIQUE: Biphasic CT imaging of the abdomen and pelvis was performed with 100 ml non-ionic IV contrast. All CT scans are performed using dose optimization technique as appropriate and may include automated exposure control or mA/KV adjustment according to patient size. FINDINGS: The lung bases are clear.Scattered coronary artery calcifications. Hepatic steatosis. Cholecystectomy. 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 Increasing peripancreatic stranding is noted. The pancreatic tail is atrophic versus surgically absent. There is a small filling defect at the distal common bile duct. Low-density renal lesions which are statistically benign. Scarring along the lower pole the right kidney. Absent spleen. Partial bowel resection. No retroperitoneal lymphadenopathy. Abdominal aortic atherosclerosis without aneurysm. Prostate unremarkable. Moderate stool in the rectum. The bladder is unremarkable. The lateral fusion at L5-S1. No fractures are seen. No suspicious bony findings. IMPRESSION: Moderate acute pancreatitis. Question defect in the distal common bile duct could represent choledocholithiasis. No peripancreatic fluid collections. ABUS: COMPARISON: Abdomen Pelvis W Contrast dated 07/06/2021 FINDINGS: Status post cholecystectomy. Limited visualization of the pancreas. The common bile duct measures 3 millimeters and is nondilated. No other significant abnormality identified IMPRESSION: Cholecystectomy. No biliary ductal dilatation. CXR: COMPARISON: Portable May 2020 TECHNIQUE: AP portable chest image was obtained 07/07/2021 12:51 pm . FINDINGS: Exam is quite limited. Patient is in a lordotic position with very low lung volumes and substantial amount of overlying soft tissue. No focal mass or consolidation. Retrocardiac left base is the most limited area. Prominent pericardial fat is present on the left. When adjusting for the technique differences, interstitial pattern is not substantially different. Heart and vasculature are normal. No measurable pleural effusion and no pneumothorax. No acute bony abnormality seen. No acute aortic findings suspected. IMPRESSION: Exam is significantly limited as detailed. However, no acute cardiopulmonary process identifiable. MRCP: COMPARISON: Cholangiogram dated 04/09/2021; Cholangiogram dated 06/06/2020; Abdomen Pelvis W Contrast dated 07/06/2021 FINDINGS: Three-dimensional MRCP was performed using maximum intensity projection reconstruction on the same work station. There is apparent narrowing of the proximal to mid common bile duct which is favored to be due to adjacent metallic artifact. There is mild intra and extrahepatic biliary ductal dilatation. Again noted is some duct irregularity and beading of the ducts of the left hepatic lobe. The extrahepatic common bile duct measures 9 millimeters there is a small cystic duct remnant. . No evidence of choledocholithiasis. Gallbladder surgically absent. The pancreatic duct at the body and tail is not visualized. The downstream duct near the ampulla is visualized and mildly dilated which is a chronic finding and may be related to sequela of chronic pancreatitis. Limited T2 sequences through the abdomen demonstrates no bulky adenopathy, significant free fluid or abscess. Splenectomy. Miniscule left renal cysts. IMPRESSION: Negative for choledocholithiasis. Surgically absent gallbladder. Mild nonspecific extrahepatic biliary ductal dilatation which may be related to the postcholecystectomy state. Also noted is a beading type morphology of the ducts to the left hepatic lobe which can be seen with entities such as primary sclerosing cholangitis though this would typically be more diffuse. The finding is unchanged. The upstream pancreatic duct is not visualized which could be a manifestation of compression from pancreatic edema as a result of pancreatitis. Physical exam: General: Alert, In no apparent distress HEENT: Atraumatic, PERRLA, Mucous membr. moist/pink, EOMI, Sclerae nonicteric Neck: Supple, 2+ carotid pulse no bruit, No LAD, Without JVD or thyroid abnormality Respiratory: Clear to auscultation bilaterally, Normal air movement Cardiovascular: Mild tachycardia. Gastrointestinal: Normal bowel sounds. Soft. No significant distention. Pain significantly improved. Musculoskeletal: No tenderness, Other (right AKA) Integumentary: No rashes Neurological: Normal speech, Normal strength at 5/5 x4 extr, Normal tone, Normal affect Lymphatics: No axilla or inguinal lymphadenopathy Impression: Acute on chronic recurrent pancreatitis with elevated liver function Diabetes mellitus type 2 insulin-dependent Hypertension GERD History of right above-knee amputation Chronic pain with neuropathy Hyperlipidemia Plan: Acute on chronic recurrent pancreatitis with elevated liver function: Patient significantly improved. No significant nausea or vomiting. Less pain noted today. Will give 500 cc bolus this morning. Will start clear liquid diet. MRCP negative for choledocholithiasis. Mild nonspecific extrahepatic biliary ductal dilatation noted but likely related to post cholecystectomy state. Overall stable. So far blood cultures negative. Continue with IV fluids. Continue with medication for pain. Continue IV Pepcid, thiamine and folate. DVT prophylaxis in place. LFTs improved. Continue to monitor the lab closely. Encourage incentive spirometer. Encourage ambulation with physical therapy. Will adjust IV fluids over the next day. Anticipate continued improvement over the next 48 hours. Diabetes mellitus type 2 insulin-dependent: Hemoglobin A1c 10.8. Continue to hold Metformin due to his current status. Will start Lantus 10 units at bedtime. Insulin sliding scale in place. Will monitor closely. Hypertension: Restart metoprolol at 50 mg 1 pill twice daily. Will adjust appropriately. Continue to hold valsartan. IV medication provided. GERD: Continue with IV Pepcid. Will likely transition to oral medication tomorrow. Chronic pain with neuropathy: Restart Cymbalta 60 mg 1 pill twice daily. Hold gabapentin and methocarbamol. History of right above-knee amputation: Overall stable. Will consult physical therapy to evaluate and ambulate. Hyperlipidemia: Continue to hold simvastatin. CODE STATUS: Full code DVT prophylaxis: Lovenox Advance care [id number] minutes: Home at discharge Time Spent Managing Pts Care (In Minutes): 55
[2021-07-08] MEDS ORDERED: NA CHLORIDE 0.9% 500 ML IV ONE (08:36)
[2021-07-08] MEDS ORDERED: METOPROLOL TAR 25 MG TAB PO SCH (08:38)
[2021-07-08] MEDS: FAMOTIDINE 20 MG/2 ML VIAL IV SCH ×2 (08:39→20:45)
[2021-07-08] MEDS: THIAMINE 200 MG/2 ML INJ IVP SCH (08:40)
[2021-07-08] MEDS: INSULIN -REGULAR HUMAN 50 UNIT/0.5 ML ML SQ SCH ×5 (08:40→20:47)
[2021-07-08] MEDS: FOLIC ACID 1 MG in NA CHLORIDE 0.9% 50 ML IV SCH (08:40)
[2021-07-08] MEDS: ENOXAPARIN 40 MG/0.4 ML SQ SCH (08:40)
[2021-07-08] MEDS ORDERED: D50W 25 GM/50 ML SYRINGE IV PRN (08:42)
[2021-07-08] MEDS ORDERED: GLUCAGON 1 MG/VIAL IM PRN (08:42)
[2021-07-08] MEDS: HYDRALAZINE HCL 20 MG/ML VIAL IV PRN ×2 (09:42→23:48)
[2021-07-08] MEDS: DULOXETINE 30 MG CAP PO SCH ×2 (09:42→20:45)
[2021-07-08] MEDS: METOPROLOL TAR 50 MG TAB PO SCH ×2 (09:42→17:08)
[2021-07-08] MEDS ORDERED: Magnesium Sulfate 2gm IVPB 2 G/50 ML BAG IV ONE (19:00)
[2021-07-08] MEDS: ATORVASTATIN 10 MG TAB PO SCH (20:45)
[2021-07-08] MEDS: INSULIN GLARGINE 100 UNITS/ML SQ SCH (20:47)
[2021-07-09] MEDS: ONDANSETRON 4 MG/2 ML VIAL IV PRN (01:36)
[2021-07-09] MEDS ORDERED: MELATONIN 5 MG TABLET PO PRN (01:38)
[2021-07-09] MEDS: ACETAMINOPHEN 500 MG TAB PO PRN (04:12)
[2021-07-09 05:13] LABS: Absolute Lymphocytes (CBC) 3.5 K/uL (0.7-4.9); Basophils % 1.4 % (0-1.3); Hematocrit 42.1 % (39.6-49.0); Lymphocytes % 24.8 % (15.3-44.8); MPV 9.5 fL (7.6-11.3); RBC Red Blood Cell Count 4.45 M/uL (4.33-5.43)
[2021-07-09 05:32] LABS: ALT/SGPT 43 U/L (12-78); AST/SGOT 24 U/L (15-37); Albumin 2.8 g/dL (3.4-5.0); Alkaline Phosphatase 101 U/L (45-117); BUN Blood Urea Nitrogen 10 mg/dL (7-18); Bicarbonate 18 mmol/L (21-32); Glucose Level 206 mg/dL (74-106); Lipase 328 U/L (73-393); Potassium 4.3 mmol/L (3.5-5.1); Protein, Total 6.4 g/dL (6.4-8.2); Sodium Level 136 mmol/L (136-145)
--- NOTE | 2021-07-09 06:03 | P.PN ---
Subjective Date of Service: 07/09/21 Primary Care Provider: Dr. Stock Chief Complaint: pancreatitis Subjective: Improving (Patient tolerating clear liquid diet.) Physical Examination - Vital Signs Temperature: 97.2 F Blood Pressure: 115/58 Pulse: 84 Respirations: 18 Pulse Ox (%): 96 Assessment & Plan Discharge Plan: Home Plan to discharge in: 24 Hours Physician Review Additional Text: COVID: Negative CT Scan: COMPARISON: Abdomen Pelvis W Contrast dated 04/08/2021; Abdomen Pelvis W Contrast dated 12/14/2019; Abdomen Pelvis W Contrast dated 06/09/2019; Abdomen Pelvis W Contrast dated 09/30/2018 TECHNIQUE: Biphasic CT imaging of the abdomen and pelvis was performed with 100 ml non-ionic IV contrast. All CT scans are performed using dose optimization technique as appropriate and may include automated exposure control or mA/KV adjustment according to patient size. FINDINGS: The lung bases are clear.Scattered coronary artery calcifications. Hepatic steatosis. Cholecystectomy. 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 Increasing peripancreatic stranding is noted. The pancreatic tail is atrophic versus surgically absent. There is a small filling defect at the distal common bile duct. Low-density renal lesions which are statistically benign. Scarring along the lower pole the right kidney. Absent spleen. Partial bowel resection. No retroperitoneal lymphadenopathy. Abdominal aortic atherosclerosis without aneurysm. Prostate unremarkable. Moderate stool in the rectum. The bladder is unremarkable. The lateral fusion at L5-S1. No fractures are seen. No suspicious bony findings. IMPRESSION: Moderate acute pancreatitis. Question defect in the distal common bile duct could represent choledocholithiasis. No peripancreatic fluid collections. ABUS: COMPARISON: Abdomen Pelvis W Contrast dated 07/06/2021 FINDINGS: Status post cholecystectomy. Limited visualization of the pancreas. The common bile duct measures 3 millimeters and is nondilated. No other significant abnormality identified IMPRESSION: Cholecystectomy. No biliary ductal dilatation. CXR: COMPARISON: Portable May 2020 TECHNIQUE: AP portable chest image was obtained 07/07/2021 12:51 pm . FINDINGS: Exam is quite limited. Patient is in a lordotic position with very low lung volumes and substantial amount of overlying soft tissue. No focal mass or consolidation. Retrocardiac left base is the most limited area. Prominent pericardial fat is present on the left. When adjusting for the technique differences, interstitial pattern is not substantially different. Heart and vasculature are normal. No measurable pleural effusion and no pneumothorax. No acute bony abnormality seen. No acute aortic findings suspected. IMPRESSION: Exam is significantly limited as detailed. However, no acute cardiopulmonary process identifiable. MRCP: COMPARISON: Cholangiogram dated 04/09/2021; Cholangiogram dated 06/06/2020; Abdomen Pelvis W Contrast dated 07/06/2021 FINDINGS: Three-dimensional MRCP was performed using maximum intensity projection reconstruction on the same work station. There is apparent narrowing of the proximal to mid common bile duct which is favored to be due to adjacent metallic artifact. There is mild intra and extrahepatic biliary ductal dilatation. Again noted is some duct irregularity and beading of the ducts of the left hepatic lobe. The extrahepatic common bile duct measures 9 millimeters there is a small cystic duct remnant. . No evidence of choledocholithiasis. Gallbladder surgically absent. The pancreatic duct at the body and tail is not visualized. The downstream duct near the ampulla is visualized and mildly dilated which is a chronic finding and may be related to sequela of chronic pancreatitis. Limited T2 sequences through the abdomen demonstrates no bulky adenopathy, significant free fluid or abscess. Splenectomy. Miniscule left renal cysts. IMPRESSION: Negative for choledocholithiasis. Surgically absent gallbladder. Mild nonspecific extrahepatic biliary ductal dilatation which may be related to the postcholecystectomy state. Also noted is a beading type morphology of the ducts to the left hepatic lobe which can be seen with entities such as primary sclerosing cholangitis though this would typically be more diffuse. The finding is unchanged. The upstream pancreatic duct is not visualized which could be a manifestation of compression from pancreatic edema as a result of pancreatitis. Physical exam: General: Alert, In no apparent distress HEENT: Atraumatic, PERRLA, Mucous membr. moist/pink, EOMI, Sclerae nonicteric Neck: Supple, 2+ carotid pulse no bruit, No LAD, Without JVD or thyroid abnormality Respiratory: Clear to auscultation bilaterally, Normal air movement Cardiovascular: Mild tachycardia. Gastrointestinal: Normal bowel sounds. Soft. No distention noted. Pain improved Musculoskeletal: No tenderness, Other (right AKA) Integumentary: No rashes Neurological: Normal speech, Normal strength at 5/5 x4 extr, Normal tone, Normal affect Lymphatics: No axilla or inguinal lymphadenopathy Impression: Acute on chronic recurrent pancreatitis with elevated liver function Diabetes mellitus type 2 insulin-dependent Hypertension GERD History of right above-knee amputation Chronic pain with neuropathy Hyperlipidemia Plan: Acute on chronic recurrent pancreatitis with elevated liver function: Patient has improved. Will advance diet to full liquid then advance to soft. Discontinue IV morphine. Will provide medication for pain. Will adjust IV fluids. Encourage ambulation. Likely home tomorrow. Diabetes mellitus type 2 insulin-dependent: Hemoglobin A1c 10.8. Continue to hold Metformin due to his current status. Continue Lantus 10 units at bedtime. Insulin sliding scale in place. Will monitor closely. Hypertension: Continue metoprolol at 50 mg 1 pill twice daily. Will adjust appropriately. Continue to hold valsartan. IV medication provided. GERD: Continue with Pepcid. Will likely transition to oral medication tomorrow. Chronic pain with neuropathy: Continue Cymbalta 60 mg 1 pill twice daily. Will provide medication for pain. Discontinue IV morphine. Hold gabapentin and methocarbamol for now. History of right above-knee amputation: Overall stable. Will consult physical therapy to evaluate and ambulate. Hyperlipidemia: Continue to hold simvastatin. CODE STATUS: Full code DVT prophylaxis: Lovenox Advance care [id number] minutes: Home at discharge Time Spent Managing Pts Care (In Minutes): 55
[2021-07-09] MEDS: METOPROLOL TAR 50 MG TAB PO SCH ×2 (06:19→16:31)
[2021-07-09 06:26] LABS: Magnesium 1.6 mg/dL (1.8-2.4)
[2021-07-09] MEDS: NA CHLORIDE 0.9% 1,000 ML IV SCH ×3 (06:33→16:32)
[2021-07-09] MEDS ORDERED: MAGNESIUM SULFATE 1 gm IVPB 1 GM/100 ML BAG IV ONE (06:35)
[2021-07-09] MEDS: INSULIN -REGULAR HUMAN 50 UNIT/0.5 ML ML SQ SCH ×4 (07:30→21:00)
[2021-07-09] MEDS: ENOXAPARIN 40 MG/0.4 ML SQ SCH (09:00)
[2021-07-09] MEDS: DULOXETINE 30 MG CAP PO SCH ×2 (09:10→21:14)
[2021-07-09] MEDS: FAMOTIDINE 20 MG/2 ML VIAL IV SCH (09:10)
[2021-07-09] MEDS: THIAMINE 200 MG/2 ML INJ IVP SCH (09:10)
[2021-07-09] MEDS: FOLIC ACID 1 MG in NA CHLORIDE 0.9% 50 ML IV SCH (09:12)
[2021-07-09] MEDS: MORPHINE 2 MG/ML SYR IV PRN (09:20)
[2021-07-09] MEDS ORDERED: TRAMADOL HCL 50 MG TAB PO PRN (14:55)
[2021-07-09] MEDS: HYDROCODONE/APAP 7.5/325 MG TAB PO PRN (16:31)
[2021-07-09] MEDS: FAMOTIDINE 20 MG TAB PO SCH (21:14)
[2021-07-09] MEDS: ATORVASTATIN 10 MG TAB PO SCH (21:14)
[2021-07-09] MEDS: INSULIN GLARGINE 100 UNITS/ML SQ SCH (21:15)
[2021-07-10 03:28] VITALS: O2SAT 96
[2021-07-10] MEDS: NA CHLORIDE 0.9% 1,000 ML IV SCH (04:06)
[2021-07-10 05:26] VITALS: TEMP 97.6
[2021-07-10 05:51] LABS: ALT/SGPT 35 U/L (12-78); AST/SGOT 23 U/L (15-37); Albumin 2.9 g/dL (3.4-5.0); Alkaline Phosphatase 98 U/L (45-117); BUN Blood Urea Nitrogen 10 mg/dL (7-18); Bicarbonate 21 mmol/L (21-32); Bilirubin Total 0.9 mg/dL (0.2-1.0); Glucose Level 191 mg/dL (74-106); Lipase 332 U/L (73-393); Magnesium 1.5 mg/dL (1.8-2.4); Phosphorus 2.1 mg/dL (2.5-4.9); Protein, Total 6.6 g/dL (6.4-8.2); Sodium Level 136 mmol/L (136-145)
[2021-07-10 05:55] LABS: Absolute Lymphocytes (CBC) 3.8 K/uL (0.7-4.9); Basophils % 0.1 % (0-1.3); Hematocrit 42.9 % (39.6-49.0); Lymphocytes % 30.7 % (15.3-44.8); MPV 9.7 fL (7.6-11.3); RBC Red Blood Cell Count 4.51 M/uL (4.33-5.43)
[2021-07-10] MEDS ORDERED: Magnesium Sulfate 2gm IVPB 2 G/50 ML BAG IV ONE (05:55)
--- NOTE | 2021-07-10 06:10 | P.PN ---
Subjective Date of Service: 07/10/21 Primary Care Provider: Dr. Stock Chief Complaint: pancreatitis Subjective: Improving, Doing well (Patient tolerating diet) Physical Examination - Vital Signs Temperature: 97.6 F Blood Pressure: 140/84 Pulse: 72 Respirations: 18 Pulse Ox (%): 95 Assessment & Plan Discharge Plan: Home Physician Review Additional Text: COVID: Negative CT Scan: COMPARISON: Abdomen Pelvis W Contrast dated 04/08/2021; Abdomen Pelvis W Contrast dated 12/14/2019; Abdomen Pelvis W Contrast dated 06/09/2019; Abdomen Pelvis W Contrast dated 09/30/2018 TECHNIQUE: Biphasic CT imaging of the abdomen and pelvis was performed with 100 ml non-ionic IV contrast. All CT scans are performed using dose optimization technique as appropriate and may include automated exposure control or mA/KV adjustment according to patient size. FINDINGS: The lung bases are clear.Scattered coronary artery calcifications. Hepatic steatosis. Cholecystectomy. 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 Increasing peripancreatic stranding is noted. The pancreatic tail is atrophic versus surgically absent. There is a small filling defect at the distal common bile duct. Low-density renal lesions which are statistically benign. Scarring along the lower pole the right kidney. Absent spleen. Partial bowel resection. No retroperitoneal lymphadenopathy. Abdominal aortic atherosclerosis without aneurysm. Prostate unremarkable. Moderate stool in the rectum. The bladder is unremarkable. The lateral fusion at L5-S1. No fractures are seen. No suspicious bony findings. IMPRESSION: Moderate acute pancreatitis. Question defect in the distal common bile duct could represent choledocholithiasis. No peripancreatic fluid collections. ABUS: COMPARISON: Abdomen Pelvis W Contrast dated 07/06/2021 FINDINGS: Status post cholecystectomy. Limited visualization of the pancreas. The common bile duct measures 3 millimeters and is nondilated. No other significant abnormality identified IMPRESSION: Cholecystectomy. No biliary ductal dilatation. CXR: COMPARISON: Portable May 2020 TECHNIQUE: AP portable chest image was obtained 07/07/2021 12:51 pm . FINDINGS: Exam is quite limited. Patient is in a lordotic position with very low lung volumes and substantial amount of overlying soft tissue. No focal mass or consolidation. Retrocardiac left base is the most limited area. Prominent pericardial fat is present on the left. When adjusting for the technique differences, interstitial pattern is not substantially different. Heart and vasculature are normal. No measurable pleural effusion and no pneumothorax. No acute bony abnormality seen. No acute aortic findings suspected. IMPRESSION: Exam is significantly limited as detailed. However, no acute cardiopulmonary process identifiable. MRCP: COMPARISON: Cholangiogram dated 04/09/2021; Cholangiogram dated 06/06/2020; Abdomen Pelvis W Contrast dated 07/06/2021 FINDINGS: Three-dimensional MRCP was performed using maximum intensity projection reconstruction on the same work station. There is apparent narrowing of the proximal to mid common bile duct which is favored to be due to adjacent metallic artifact. There is mild intra and extrahepatic biliary ductal dilatation. Again noted is some duct irregularity and beading of the ducts of the left hepatic lobe. The extrahepatic common bile duct measures 9 millimeters there is a small cystic duct remnant. . No evidence of choledocholithiasis. Gallbladder surgically absent. The pancreatic duct at the body and tail is not visualized. The downstream duct near the ampulla is visualized and mildly dilated which is a chronic finding and may be related to sequela of chronic pancreatitis. Limited T2 sequences through the abdomen demonstrates no bulky adenopathy, significant free fluid or abscess. Splenectomy. Miniscule left renal cysts. IMPRESSION: Negative for choledocholithiasis. Surgically absent gallbladder. Mild nonspecific extrahepatic biliary ductal dilatation which may be related to the postcholecystectomy state. Also noted is a beading type morphology of the ducts to the left hepatic lobe which can be seen with entities such as primary sclerosing cholangitis though this would typically be more diffuse. The finding is unchanged. The upstream pancreatic duct is not visualized which could be a manifestation of compression from pancreatic edema as a result of pancreatitis. Physical exam: General: Alert, In no apparent distress HEENT: Atraumatic, PERRLA, Mucous membr. moist/pink, EOMI, Sclerae nonicteric Neck: Supple, 2+ carotid pulse no bruit, No LAD, Without JVD or thyroid abnormality Respiratory: Clear to auscultation bilaterally, Normal air movement Cardiovascular: Mild tachycardia. Gastrointestinal: Normal bowel sounds. Soft. No distention noted. Pain improved Musculoskeletal: No tenderness, Other (right AKA) Integumentary: No rashes Neurological: Normal speech, Normal strength at 5/5 x4 extr, Normal tone, Normal affect Lymphatics: No axilla or inguinal lymphadenopathy Impression: Acute on chronic recurrent pancreatitis with elevated liver function Diabetes mellitus type 2 insulin-dependent Hypertension GERD History of right above-knee amputation Chronic pain with neuropathy Hyperlipidemia Plan: Acute on chronic recurrent pancreatitis with elevated liver function: Patient has done well. Lipase within normal range. Patient tolerating diet. Will plan for discharge. Patient sees GI as an outpatient. Recommend follow-up within 1 week to further address and monitor. Diabetes mellitus type 2 insulin-dependent: Hemoglobin A1c 10.8. Sugar stable. Continue with Metformin at discharge. Patient will need to follow-up with PCP soon to further evaluate and address. Hypertension: Continue metoprolol at 50 mg 1 pill twice daily. Continue with home medication at discharge. GERD: Continue with Pepcid. Will likely transition to oral medication tomorrow. Chronic pain with neuropathy: Continue Cymbalta 60 mg 1 pill twice daily. We will continue with her medication at discharge History of right above-knee amputation: Overall stable. Will consult physical therapy to evaluate and ambulate. Hyperlipidemia: Continue to hold simvastatin. CODE STATUS: Full code DVT prophylaxis: Lovenox Advance care [id number] minutes: Home at discharge Time Spent Managing Pts Care (In Minutes): 55
[2021-07-10] MEDS: HYDROCODONE/APAP 7.5/325 MG TAB PO PRN (06:12)
[2021-07-10] MEDS: METOPROLOL TAR 50 MG TAB PO SCH (06:44)
[2021-07-10] MEDS: INSULIN -REGULAR HUMAN 50 UNIT/0.5 ML ML SQ SCH (07:30)
[2021-07-10] MEDS ORDERED: THIAMINE HCL 100 MG TABLET PO SCH (09:00)
[2021-07-10] MEDS ORDERED: FOLIC ACID 1 MG TABLET PO SCH (09:00)
[2021-07-10] MEDS: ENOXAPARIN 40 MG/0.4 ML SQ SCH (09:00)
[2021-07-10] MEDS: POTASS/SODIUM PHOSPHATE 1 PKT POWD.PACK PO SCH ×3 (09:03→09:07)
[2021-07-10] MEDS: DULOXETINE 30 MG CAP PO SCH (09:04)
[2021-07-10] MEDS: FAMOTIDINE 20 MG TAB PO SCH (09:05)
[2021-07-10 09:25] VITALS: BP 140/84
--- NOTE | 2021-07-10 09:33 | P.DS ---
Admission Date: 07/06/21 Discharge Date: 07/10/21 Primary Care Provider: Dr. Stock Disposition: ROUTINE DISCHARGE Discharge Condition: GOOD Reason for Admission: pancreatitis Consultations: none Procedures: COVID: Negative CT Scan: COMPARISON: Abdomen Pelvis W Contrast dated 04/08/2021; Abdomen Pelvis W Contrast dated 12/14/2019; Abdomen Pelvis W Contrast dated 06/09/2019; Abdomen Pelvis W Contrast dated 09/30/2018 TECHNIQUE: Biphasic CT imaging of the abdomen and pelvis was performed with 100 ml non-ionic IV contrast. All CT scans are performed using dose optimization technique as appropriate and may include automated exposure control or mA/KV adjustment according to patient size. FINDINGS: The lung bases are clear.Scattered coronary artery calcifications. Hepatic steatosis. Cholecystectomy. 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 Increasing peripancreatic stranding is noted. The pancreatic tail is atrophic versus surgically absent. There is a small filling defect at the distal common bile duct. Low-density renal lesions which are statistically benign. Scarring along the lower pole the right kidney. Absent spleen. Partial bowel resection. No retroperitoneal lymphadenopathy. Abdominal aortic atherosclerosis without aneurysm. Prostate unremarkable. Moderate stool in the rectum. The bladder is unremarkable. The lateral fusion at L5-S1. No fractures are seen. No suspicious bony findings. IMPRESSION: Moderate acute pancreatitis. Question defect in the distal common bile duct could represent choledocholithiasis. No peripancreatic fluid collections. ABUS: COMPARISON: Abdomen Pelvis W Contrast dated 07/06/2021 FINDINGS: Status post cholecystectomy. Limited visualization of the pancreas. The common bile duct measures 3 millimeters and is nondilated. No other significant abnormality identified IMPRESSION: Cholecystectomy. No biliary ductal dilatation. CXR: COMPARISON: Portable May 2020 TECHNIQUE: AP portable chest image was obtained 07/07/2021 12:51 pm . FINDINGS: Exam is quite limited. Patient is in a lordotic position with very low lung volumes and substantial amount of overlying soft tissue. No focal mass or consolidation. Retrocardiac left base is the most limited area. Prominent pericardial fat is present on the left. When adjusting for the technique differences, interstitial pattern is not substantially different. Heart and vasculature are normal. No measurable pleural effusion and no pneumothorax. No acute bony abnormality seen. No acute aortic findings suspected. IMPRESSION: Exam is significantly limited as detailed. However, no acute cardiopulmonary process identifiable. MRCP: COMPARISON: Cholangiogram dated 04/09/2021; Cholangiogram dated 06/06/2020; Abdomen Pelvis W Contrast dated 07/06/2021 FINDINGS: Three-dimensional MRCP was performed using maximum intensity projection reconstruction on the same work station. There is apparent narrowing of the proximal to mid common bile duct which is favored to be due to adjacent metallic artifact. There is mild intra and extrahepatic biliary ductal dilatation. Again noted is some duct irregularity and beading of the ducts of the left hepatic lobe. The extrahepatic common bile duct measures 9 millimeters there is a small cystic duct remnant. . No evidence of choledocholithiasis. Gallbladder surgically absent. The pancreatic duct at the body and tail is not visualized. The downstream duct near the ampulla is visualized and mildly dilated which is a chronic finding and may be related to sequela of chronic pancreatitis. Limited T2 sequences through the abdomen demonstrates no bulky adenopathy, significant free fluid or abscess. Splenectomy. Miniscule left renal cysts. IMPRESSION: Negative for choledocholithiasis. Surgically absent gallbladder. Mild nonspecific extrahepatic biliary ductal dilatation which may be related to the postcholecystectomy state. Also noted is a beading type morphology of the ducts to the left hepatic lobe which can be seen with entities such as primary sclerosing cholangitis though this would typically be more diffuse. The finding is unchanged. The upstream pancreatic duct is not visualized which could be a manifestation of compression from pancreatic edema as a result of pancreatitis. Medical problem list: Acute on chronic recurrent pancreatitis with elevated liver function Diabetes mellitus type 2 insulin-dependent Hypertension GERD History of right above-knee amputation Chronic pain with neuropathy Hyperlipidemia Brief History of Present Illness: 71-year-old male with history of diabetes, hypertension, diabetic neuropathy, chronic pancreatitis presented with 10 out of 10 epigastric pain[address] Lipase elevated. CT scan showed moderate pancreatitis without any peripancreatic fluid collection. Patient was admitted for treatment. Hospital Course: Patient presented with acute on chronic recurrent pancreatitis with elevated liver function. Patient with history of pancreatitis in the past. Patient denies any alcohol use. Total triglyceride within normal range. Patient was admitted for treatment. Patient was transitioned from n.p.o. to oral intake. Lipase improved. Abdominal ultrasound shows history of cholecystectomy. No biliary ductal dilatation noted. MRCP also performed showed no choledocholithiasis. At discharge patient has done well. Lipase now within normal range. Patient without significant abdominal pain, nausea and vomiting. At discharge the patient will continue with thiamine 100 mg daily and folic acid 1 mg daily. Patient will need to follow-up with his GI specialistDrRyan Clark. Recommend follow-up within 1 week to follow-up his hospitalization and continue his care. Etiology of recurrent pancreatitis unknown. This can be further evaluated by his GI specialist. Recommend to recheck labCBC, CMP in 1 week to monitor his progress. Patient with diabetes mellitus type 2. Hemoglobin A1c 10.8. Patient takes Metformin. Blood sugar stable at discharge. At discharge patient will continue with Metformin 750 mg 1 pill twice daily. Recommend to maintain blood sugar less than 140 fasting and less than 200 after meals. Further adjustment can be done by his PCP. Recommend to recheck hemoglobin A1c every 3 months to monitor his progress. Recommend follow-up within 1 week to further monitor and address his diabetes. Patient with hypertension. Medications were adjusted. Patient previously on valsartan. This was discontinued. Blood pressure stable on metoprolol. At d ischarge will recommend to continue metoprolol 50 mg 1 pill twice daily and losartan 25 mg daily. Recommend to monitor his blood pressures daily. Recommend to maintain blood pressure less than 130/80. Further adjustment can be done by his PCP. Patient with chronic diabetic neuropathy and pain. Patient with history of right above-knee amputation. Patient with prosthetic. At discharge patient will continue with his current medication of Cymbalta 60 mg 1 pill twice daily and gabapentin 300 mg 3 times a day. Hold gabapentin if with increased sedation. A limited supply of tramadol 50 mg 1 pill twice daily as needed for pain will be provided. Recommend to follow-up with his PCP to further address. Patient would benefit with chronic pain management referral to further address his pain. Patient with hyperlipidemia. At discharge patient will continue with Zocor 20 mg daily. Vital Signs/Physical Exam: Temp Pulse Resp BP Pulse Ox 97.6 F 72 18 140/84 95 07/10/21 09:25 07/10/21 09:25 07/10/21 09:25 07/10/21 09:25 07/10/21 09:25 General: Alert, In no apparent distress, Oriented x3, Cooperative HEENT: Atraumatic Neck: Supple Respiratory: Clear to auscultation bilaterally, Normal air movement Cardiovascular: Normal pulses, Regular rate/rhythm Gastrointestinal: Normal bowel sounds, No ascites, No tenderness, No masses, No rebound, No guarding Musculoskeletal: No erythema, No tenderness, No warmth Integumentary: No tenderness/swelling Neurological: Normal speech, Normal strength at 5/5 x4 extr, Normal tone Laboratory Data at Discharge: WBC 12.30 K/uL (4.3-10.9) H 07/10/21 05:17 Hgb 14.1 g/dL (13.6-17.9) 07/10/21 05:17 Hct 42.9 % (39.6-49.0) 07/10/21 05:17 Plt Count 280 K/uL (152-406) 07/10/21 05:17 APTT 22.9 SECONDS (24.3-36.9) L 07/07/21 09:32 Sodium 136 mmol/L (136-145) 07/10/21 05:17 Potassium 4.0 mmol/L (3.5-5.1) 07/10/21 05:17 BUN 10 mg/dL (7-18) 07/10/21 05:17 Creatinine 0.62 mg/dL (0.55-1.3) 07/10/21 05:17 Glucose 191 mg/dL (74-106) H 07/10/21 05:17 Phosphorus 2.1 mg/dL (2.5-4.9) L 07/10/21 05:17 Magnesium 1.5 mg/dL (1.8-2.4) L 07/10/21 05:17 Total Bilirubin 0.9 mg/dL (0.2-1.0) 07/10/21 05:17 AST 23 U/L (15-37) 07/10/21 05:17 ALT 35 U/L (12-78) 07/10/21 05:17 Alkaline Phosphatase 98 U/L (45-117) 07/10/21 05:17 Triglycerides 242 mg/dL (<150) H 07/07/21 03:05 Cholesterol 148 mg/dL (<200) 07/07/21 03:05 HDL Cholesterol 29 mg/dL (40-60) L 07/07/21 03:05 Cholesterol/HDL Ratio 5.10 07/07/21 03:05 Amylase 370 U/L (25-115) H* 07/07/21 03:05 Lipase 332 U/L (73-393) 07/10/21 05:17 Home Medications: Duloxetine HCl [Cymbalta] 60 mg PO BID 06/06/20 Gabapentin 300 mg PO TID PRN 06/06/20 Metformin HCl [Metformin HCl ER] 750 mg PO BID 06/06/20 Metoprolol Tartrate [Lopressor*] 50 mg PO BID 6AM 6PM #60 tab 06/09/20 Simvastatin 20 mg PO DAILY 07/07/21 Famotidine [Pepcid] 20 mg PO BID #60 tab 07/10/21 Folic Acid 1 mg PO DAILY #30 tablet 07/10/21 Losartan Potassium 25 mg PO DAILY #30 tablet 07/10/21 Thiamine HCl 100 mg PO DAILY #30 tablet 07/10/21 Tramadol HCl [Ultram] 50 mg PO BID PRN #10 tablet 07/10/21 New Medications: Folic Acid 1 mg PO DAILY #30 tablet Losartan Potassium 25 mg PO DAILY #30 tablet Famotidine [Pepcid] 20 mg PO BID #60 tab Thiamine HCl 100 mg PO DAILY #30 tablet Tramadol HCl [Ultram] 50 mg PO BID PRN #10 tablet PRN Reason: Pain Scale 2-4 (Mild) Physician Discharge Instructions: Patient presented with acute on chronic recurrent pancreatitis with elevated liver function. Patient with history of pancreatitis in the past. Patient denies any alcohol use. Total triglyceride within normal range. Patient was admitted for treatment. Patient was transitioned from n.p.o. to oral intake. Lipase improved. Abdominal ultrasound shows history of cholecystectomy. No biliary ductal dilatation noted. MRCP also performed showed no choledocholithiasis. At discharge patient has done well. Lipase now within normal range. Patient without significant abdominal pain, nausea and vomiting. At discharge the patient will continue with thiamine 100 mg daily and folic acid 1 mg daily. Patient will need to follow-up with his GI specialistDrRyan Clark. Recommend follow-up within 1 week to follow-up his hospitalization and continue his care. Etiology of recurrent pancreatitis unknown. This can be further evaluated by his GI specialist. Recommend to recheck labCBC, CMP in 1 week to monitor his progress. Patient with diabetes mellitus type 2. Hemoglobin A1c 10.8. Patient takes Metformin. Blood sugar stable at discharge. At discharge patient will continue with Metformin 750 mg 1 pill twice daily. Recommend to maintain blood sugar less than 140 fasting and less than 200 after meals. Further adjustment can be done by his PCP. Recommend to recheck hemoglobin A1c every 3 months to monitor his progress. Recommend follow-up within 1 week to further monitor and address his diabetes. Patient with hypertension. Medications were adjusted. Patient previously on valsartan. This was discontinued. Blood pressure stable on metoprolol. At discharge will recommend to continue metoprolol 50 mg 1 pill twice daily and losartan 25 mg daily. Recommend to monitor his blood pressures daily. Recommend to maintain blood pressure less than 130/80. Further adjustment can be done by his PCP. Patient with chronic diabetic neuropathy and pain. Patient with history of right above-knee amputation. Patient with prosthetic. At discharge patient will continue with his current medication of Cymbalta 60 mg 1 pill twice daily and gabapentin 300 mg 3 times a day. Hold gabapentin if with increased sedation. A limited supply of tramadol 50 mg 1 pill twice daily as needed for pain will be provided. Recommend to follow-up with his PCP to further address. Patient would benefit with chronic pain management referral to further address his pain. Patient with hyperlipidemia. At discharge patient will continue with Zocor 20 mg daily. Diet: ADA Activity: Ad zen Followup: Ruy Stock DO [Primary Care Provider] - Time spent managing pt's care (in minutes): 55
== END 2021-07-10 11:29 | disposition home or self-care (01) | DRG 440 ==
LOC: ER 16:07 → ERHOLD 23:39 → 2ND 07-07 15:51
PROVIDERS: ADMIT Family Medicine; ATTEND Family Medicine
DX: K85.90 Acute pancreatitis without necrosis or infection, unspecified (principal); I10 Essential (primary) hypertension; E11.40 Type 2 diabetes mellitus with diabetic neuropathy, unspecified; E11.65 Type 2 diabetes mellitus with hyperglycemia; K21.9 Gastro-esophageal reflux disease without esophagitis; G89.29 Other chronic pain; E78.5 Hyperlipidemia, unspecified; R79.89 Other specified abnormal findings of blood chemistry; Z96.651 Presence of right artificial knee joint; Z89.611 Acquired absence of right leg above knee; Z90.49 Acquired absence of other specified parts of digestive tract; Z20.822 Contact with and (suspected) exposure to COVID-19
CPT/HCPCS: 36415; 71045; 74177; 74181; 76705; 80048; 80053; 80061; 80076; 81003; 82150; 82565; 82947; 83036; 83605; 83690; 83735; 84100; 84145; 85025; 85730; 86140; 87040; 93005; 94010; 94760; 96361; 96374; 96375; 97161; 99285; J0360; J1650; J1815; J2270; J2405; J3411; J3475; J7030; J7040; Q9967; U0003

== ENCOUNTER 2021-11-15 07:12 | Inpatient (IN) | payer OTHER ==
--- OUTSIDE RECORDS SUMMARY | 2021-11-15 07:14 | XMS REPORT | Clinical Summary ---
:1950 Author Organization [facility] MD [facility] Address [address] [place] [address] Care Team Providers Name Role Phone MD Pato Primary Care Provider Allergies Not on File Medications Not on file Active Problems Not on file Social History Tobacco Use Types Packs/Day Years Used Date Never Assessed Sex Assigned at Date Recorded Not on file Last Filed Vital Signs Not on file Plan of Treatment Health Maintenance Due Date Last Done Comments COVID-19 Vaccination (1) 1955 Results Not on fileafter 11/15/2020 Insurance Payer Benefit Plan Subscriber ID Effective Phone Address Typ e / Group Dates MEDICARE MEDICARE PART [id number] 2009-Prese [phone] [facility] Medicare A AND B nt 782 [address] [facility] [place] [phone] AETNA SENIOR AETNA SENIOR [id number] 2018-Pres [address]OX [employer] SUPPLEMENT SUPPLEMENT-SE ent [address] [place] [address] Care Teams 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
--- OUTSIDE RECORDS SUMMARY | 2021-11-15 07:15 | XMS REPORT | Continuity of Care Document ---
:1950 Author Organization [facility] t Address [address] [place] [address] Care Team Providers Name Role Phone GE Primary Care Physician Unavailable SYSTEM, NOT IN Attending Clinician Unavailable ATTAR Attending Clinician Unavailable Kofi_Jose Maria Attending Clinician Unavailable GE Attending Clinician Unavailable Kofi_Jose Maria Admitting Clinician Unavailable Payers Payer Name Policy Type Policy Number Effective Date Expiration Date S [facility] [id number] 2021 (MEDICARE 00:00:00 REPLACEMENT O) MEDICARE PART A AND [id number] 2009 B 00:00:00 [employer]ETNA [facility] [id number] 2018 SUPPLEMENT-SECONDAR 00:00:00 Y ONLY Problems This patient has no known problems. Allergies, Adverse Reactions, Alerts This patient has no known allergies or adverse reactions. Social History Social Habit Start Date Stop Date Quantity Comments Source Sex Assigned At [birth year] MD [place] 00:00:00 00:00:00 Medications This patient has no known medications. Procedures This patient has no known procedures. Plan of Care Planned Activity Planned Date Details Comments Source Future Scheduled Test 1955 00:00:00 COVID-19 Vaccination MD [place] (1) [code = COVID-19 Vaccination (1)] Encounters Start End Encounter Admission Attending Care Care Encounter Source Date/Time Date/Time Type Type Clinicians Facility Department ID 2020-07-22 Outpatient SYSTEM, [facility] [id number] 10:27:39 PROVIDER Doemartin jeffers 2021-11-03 2021-11-03 Outpatient ATTAR, [facility] [id number] [address] [place] 00:00:00 00:00:00 [address] 2021-03-24 2021-03-24 Outpatient Johnson_J DMG DMG [id number] [facility] 03:56:00 03:56:00 [address] 2020-07-18 2020-07-18 Outpatient GE, [facility] MDA MDA [id number] 13:04:26 13:04:26 Doe o n 2020-07-18 2020-07-18 Outpatient GE, DARREL MDA MDA [id number] 13:04:22 13:04:22 Doe o n 2020-07-18 2020-07-18 Outpatient GE, DARREL MDA MDA [id number] 13:03:54 13:03:54 Doe o n 2020-07-18 2020-07-18 Outpatient GE, DARREL MDA MDA [id number] 13:03:53 13:03:53 Doe o n 2020-07-18 2020-07-18 Outpatient GE, DARREL MDA MDA [id number] 13:03:52 13:03:52 Doe o n 2020-07-18 2020-07-18 Outpatient GE, DARREL MDA MDA [id number] 13:03:51 13:03:51 Doe o n 2020-07-18 2020-07-18 Outpatient GE, DARREL MDA MDA [id number] 13:03:50 13:03:50 Doe o n 2020-07-11 2020-07-11 Outpatient EL GE, DARREL MDA MDA [id number] 00:00:00 00:00:00 Doe o n 2020-07-09 2020-07-09 Outpatient EL GE, DARREL MDA MDA [id number] 15:17:45 15:17:45 Doe o n Results This patient has no known results.
[2021-11-15] MEDS ORDERED: MORPHINE 4 MG/ML SYR ONE ×3 (08:16→15:34)
[2021-11-15] MEDS ORDERED: NA CHLORIDE 0.9% 500 ML ONE (08:17)
[2021-11-15] MEDS ORDERED: ONDANSETRON 4 MG/2 ML VIAL ONE (08:17)
[2021-11-15 09:10] LABS: Absolute Lymphocytes (CBC) 2.6 K/uL (0.7-4.9); Hematocrit 42.8 % (39.6-49.0); Lymphocytes % 19.4 % (15.3-44.8); MPV 8.8 fL (7.6-11.3); RBC Red Blood Cell Count 4.51 M/uL (4.33-5.43)
[2021-11-15 09:45] LABS: Albumin 2.9 g/dL (3.4-5.0); Bilirubin Direct 0.1 mg/dL (0-0.2); Potassium 4.8 mmol/L (3.5-5.1)
[2021-11-15 09:55] LABS: Bilirubin Total 0.5 mg/dL (0.2-1.0); Protein, Total 6.9 g/dL (6.4-8.2)
--- NOTE | 2021-11-15 14:04 | RAD REPORT ---
EXAM DESCRIPTION: CTAbdomen Pelvis W Contrast - 11/15/2021 1:51 pm CLINICAL HISTORY: ABD PAIN COMPARISON: Abdomen Pelvis W Contrast dated 07/06/2021; Abdomen Pelvis W Contrast dated 04/08/2021 ; Abdomen Pelvis W Contrast dated 12/14/2019; Abdomen Pelvis W Contrast dated 06/09/2019 TECHNIQUE: CT of the abdomen and pelvis was performed. All CT scans are performed using dose optimization technique as appropriate and may include automated exposure control or mA/KV adjustment according to patient size. FINDINGS: Lower chest: Aortic root calcifications. Liver: Mild intrahepatic biliary ductal dilatation. Biliary: Cholecystectomy.Extrahepatic biliary duct dilatation is likely related to the postcholecyste ctomy state. Stomach: Left-sided diaphragmatic hernia containing a portion of the stomach. No complicating feature s. Duodenum: No significant abnormality. Pancreas: Subtle peripancreatic stranding. Calcifications in the tail of the pancreas as well as in t he pancreatic duct at the head is likely sequela of chronic pancreatitis. Spleen: No significant abnormality. Adrenal: No suspicious lesions. Kidney/ureter: No hydronephrosis. No renal calculi. Too small to characterize and/or benign appearing renal lesions are noted. Scarring is present along the lower pole the right kidney. Retroperitoneum: No retroperitoneal adenopathy. Vascular: No aneurysm. Bowel: No significant focal abnormality. Partial colectomy. Partial small bowel resection. Patulous b owel noted within the central abdomen. No bowel obstruction identified at this time. Peritoneum: No ascites or free air. Bladder: Grossly unremarkable. Reproductive: No adnexal masses. Bones: No acute fracture. Multilevel degenerative changes are present in the spine. Other: n/a IMPRESSION: 1. Mild diffuse peripancreatic stranding could reflect acute on chronic pancreatitis. No complicating features. 2. Distended small bowel but no evidence of bowel obstruction.
--- NOTE | 2021-11-15 14:39 | EDPHYS ---
Physician Documentation [facility] Name: Anish Leon Age: 71 yrs Sex: Male : 1950 Arrival Date: 11/15/2021 Time: 07:13 Bed 14 Private MD: [facility] ED Physician Neelima Méndez HPI: 11/15 07:54 This 71 yrs old Male presents to ER via Wheelchair with complaints of Abdominal Pain. pm1 07:54 The patient presents with abdominal pain in the lower abdomen. Onset: The pm1 symptoms/episode began/occurred last night. The symptoms do not radiate. Associated signs and symptoms: Pertinent negatives: nausea, vomiting, and diarrhea, chest pain, dysuria, fever, shortness of breath. The symptoms are described as achy, constant. Modifying factors: the symptoms are aggravated by appeared to get worse last night after eating a small dinner - sausage, cheese and crackers. Severity of pain: in the emergency department the pain is unchanged. The patient has experienced similar episodes in the past, a few times, today's symptoms are similar, to previous bowel obstruction. The patient has not recently seen a physician. Historical: - Allergies: 07:39 Zoloft; iw - Home Meds: 07:39 amlodipine 10 mg tab 1 tab once daily [Active]; carvedilol 12.5 mg Oral tab 1 tab 2 iw times per day [Active]; duloxetine 60 mg Oral cpDR twice a day [Active]; gabapentin 300 mg Oral cap 1 cap 3 times per day [Active]; metformin 500 mg Oral tab 1 tab 2 times per day [Active]; metoprolol tartrate 100 mg Oral tab 1 tab 2 times per day [Active]; glipizide 10 mg oral tab 2 times per day [Active]; losartan oral [Active]; 10:08 aspirin 81 mg Oral chew 1 tab once daily [Active]; cyclobenzaprine 10 mg Oral tab 1 tab eo2 3 times per day [Active]; Flomax 0.4 mg Oral cp24 1 cap once daily [Active]; irbesartan 300 mg Oral tab 1 tab once daily [Active]; Trintellix 10 mg Oral tab 1 tab once daily [Active]; valsartan 320 mg Oral tab 1 tab once daily [Active]; - PMHx: 07:39 Diabetes - NIDDM; Hypertension; Pancreatitis; prostate problems; neuron pain; iw - PSHx: 07:49 right AKA; left knee; colon resection; iw - Immunization history:: Client reports receiving the Kofi \\T\\ Kofi single-dose vaccine. - Social history:: Smoking status: Patient denies any tobacco usage or history of. ROS: 07:54 Constitutional: Negative for fever, chills, and weight loss, Cardiovascular: Negative pm1 for chest pain, palpitations, and edema, Respiratory: Negative for shortness of breath, cough, wheezing, and pleuritic chest pain. 07:54 Back: Negative for injury and pain, : Negative for injury, bleeding, discharge, and swelling, MS/Extremity: Negative for injury and deformity, Skin: Negative for injury, rash, and discoloration, Neuro: Negative for headache, weakness, numbness, tingling, and seizure. 07:54 Abdomen/GI: Positive for abdominal pain, Negative for nausea, vomiting, and diarrhea. 07:54 All other systems are negative. Exam: 07:54 Constitutional: This is a well developed, well nourished patient who is awake, alert, pm1 and in no acute distress. Head/Face: Normocephalic, atraumatic. 07:54 Skin: Warm, dry with normal turgor. Normal color with no rashes, no lesions, and no evidence of cellulitis. MS/ Extremity: Pulses equal, no cyanosis. Neurovascular intact. Full, normal range of motion. 07:54 Eyes: Exam is negative for acute changes, Pupils: no acute changes, Extraocular movements: no acute changes, Conjunctiva: no acute changes, no injection, Sclera: no acute changes, icterus, is not appreciated. 07:54 ENT: Exam is negative for acute changes, Mouth: no acute changes, Lips: normal, moist, Oral mucosa: normal, pink and intact, moist. 07:54 Cardiovascular: Exam negative for acute changes, Rate: normal, Rhythm: regular, Pulses: no pulse deficits are appreciated. 07:54 Respiratory: Exam negative for acute changes, respiratory distress, shortness of breath. 07:54 Abdomen/GI: Inspection: scar(s), are noted in the right lower quadrant and left lower quadrant, Palpation: soft, in all quadrants, moderate abdominal tenderness, in the proximal and medial aspect left lower quadrant. 07:54 Back: Exam negative for acute changes, pain, is absent, ROM is normal. 07:54 Neuro: Exam negative for acute changes, Orientation: is normal, Mentation: is normal, Motor: is normal, moves all fours. Vital Signs: 07:37 BP 124 / 81; Pulse 85; Resp 16; Temp 97.8; Pulse Ox 97% on R/A; Weight 105.23 kg; iw Height 6 ft. 0 in. (182.88 cm); Pain 9/10; 08:15 BP 136 / 75; Pulse 70; Resp 17; Pulse Ox 96% ; Pain 8/10; eo2 09:15 BP 128 / 83; Pulse 70; Resp 15; Pulse Ox 97% ; Pain 3/10; eo2 10:00 BP 137 / 77; Pulse 71; Resp 15; Pulse Ox 96% ; Pain 3/10; eo2 12:00 BP 155 / 87; Pulse 69; Resp 15; Pulse Ox 98% on R/A; Pain 8/10; eo2 13:00 BP 143 / 87; Pulse 73; Resp 15; Pulse Ox 97% ; Pain 5/10; eo2 13:14 Pain 4/10; eo2 14:00 BP 157 / 128; Pulse 77; Resp 17; Pulse Ox 97% ; eo2 15:00 BP 135 / 101; Pulse 81; Resp 17; Pulse Ox 97% ; Pain 8/10; eo2 16:00 BP 116 / 87; Pulse 76; Resp 15; Pulse Ox 97% ; eo2 16:32 Pain 5/10; eo2 16:33 Pain 5/10; eo2 17:00 BP 146 / 84; Pulse 71; Resp 17; Pulse Ox 96% ; eo2 18:00 BP 126 / 83; Pulse 69; Resp 17; Pulse Ox 96% ; Pain 8/10; eo2 07:37 Body Mass Index 31.46 (105.23 kg, 182.88 cm) iw MDM: 07:42 Patient medically screened. ma2 07:53 Data reviewed: vital signs. Data interpreted: Pulse oximetry: on room air is 97 %. pm1 Interpretation: normal. 14:27 Counseling: I had a detailed discussion with the patient and/or guardian regarding: the pm1 historical points, exam findings, and any diagnostic results supporting the discharge/admit diagnosis, lab results, radiology results, the need for further work-up and treatment in the hospital. 11/15 07:44 Order name: Basic Metabolic Panel; Complete Time: 10:41 pm1 11/15 07:44 Order name: CBC with Diff; Complete Time: 09:20 pm1 11/15 07:44 Order name: Hepatic Function; Complete Time: 10:41 pm1 11/15 07:44 Order name: Lipase; Complete Time: 10:41 pm1 11/15 08:48 Order name: COVID-19 (Coronavirus) Document "Date of Onset" if Symptomatic 11/15 09:27 Order name: SARS-COV-2 RT PCR; Complete Time: 10:41 EDMS 11/15 14:58 Order name: Comprehensive Metabolic Panel EDNC 11/15 14:58 Order name: CBC with Automated Diff EDMS 11/15 14:58 Order name: CBC with Automated Diff EDMS 11/15 14:58 Order name: Comprehensive Metabolic Panel EDMS 11/15 14:59 Order name: Lipase EDMS 11/15 14:59 Order name: Lipase EDMS 11/15 14:59 Order name: Lipase EDMS 11/15 07:44 Order name: IV Saline Lock; Complete Time: 09:05 pm1 11/15 07:44 Order name: Labs collected and sent; Complete Time: 09:05 pm1 11/15 07:52 Order name: CT Abd/Pelvis - IV Contrast Only; Complete Time: 14:11 pm1 11/15 09:15 Order name: Labs - recollect needed: recollect green top; Complete Time: 10:05 bd 11/15 14:58 Order name: NPO EDNC 11/15 14:59 Order name: Lipase EDNC 11/15 18:01 Order name: Glucose, Ancillary Testing EDMS Administered Medications: 09:00 Drug: morphine 4 mg Route: IVP; Site: right upper arm; eo2 10:00 Follow up: Response: No adverse reaction; Pain is decreased eo2 09:00 Drug: Zofran (Ondansetron) 4 mg Route: IVP; Site: right upper arm; eo2 10:00 Follow up: Response: No adverse reaction eo2 09:11 Drug: NS 0.9% 500 ml Route: IV; Rate: bolus; Site: right upper arm; eo2 10:11 Follow up: Response: No adverse reaction; IV Status: Completed infusion; IV Intake: eo2 500ml 12:30 Drug: morphine 4 mg Route: IVP; Site: right upper arm; eo2 13:14 Follow up: Pain 4/10 Adult; Response: No adverse reaction; Pain is decreased eo2 15:42 Drug: morphine 4 mg Route: IVP; Site: right upper arm; eo2 16:32 Follow up: Pain 5/10 Adult; Response: No adverse reaction; Pain is decreased eo2 Disposition: 11/16 18:54 Co-signature as Attending Physician, Neelima Méndez MD I agree with the assessment ma2 and plan of care. Disposition Summary: 11/15/21 14:39 Hospitalization Ordered Hospitalization Status: Inpatient Admission pm1 Provider: Tristen Morris pm1 Condition: Stable pm1 Problem: new pm1 Symptoms: have improved pm1 Bed/Room Type: Standard pm1 Location: Telemetry/MedSurg (Inpatient)(11/15/21 20:03) cg Room Assignment: [facility](11/15/21 20:03) Diagnosis - Acute Pancreatitis pm1 Forms: - Medication Reconciliation Form pm1 - SBAR form pm1 Signatures: Dispatcher [employer] EDMS Carley Floyd Irene, RN RN Eileen Fair RN RN Lj Weir NP CIRCUIT JUDGE pm1 Neelima Méndez MD MD ma2 Lisa Ford RN RN ld1 Aminata Day RN RN eo2 Corrections: (The following items were deleted from the chart) 11/15 07:50 07:39 PSHx: None; [facility] 09:27 08:49 CORONAVIRUS ordered. EDMS EDMS 16:50 14:39 Telemetry/MedSurg (Inpatient) pm1 ld1 16:50 14:39 pm1 ld1 20:03 16:50 [facility] ER HOLD ld1 cg 20:03 16:50 ERHOLD- ld1 cg
--- NOTE | 2021-11-15 14:39 | ER ---
Nurse's Notes [facility] Name: Anish Leon Age: 71 yrs Sex: Male : 1950 Arrival Date: 11/15/2021 Time: 07:13 Bed 14 Private MD: Ruy Stock Diagnosis: Acute Pancreatitis Presentation: 11/15 07:37 Chief complaint: Patient states: mid abd pain started last night, no n/v/d has hx of iw pancreatitis and bowel obstruction. Coronavirus screen: At this time, the client does not indicate any symptoms associated with coronavirus-19. Ebola Screen: Patient negative for fever greater than or equal to 101.5 degrees Fahrenheit, and additional compatible Ebola Virus Disease symptoms Patient denies exposure to infectious person. Patient denies travel to an Ebola-affected area in the 21 days before illness onset. No symptoms or risks identified at this time. Initial Sepsis Screen: Does the patient meet any 2 criteria? No. Patient's initial sepsis screen is negative. Does the patient have a suspected source of infection? No. Patient's initial sepsis screen is negative. Risk Assessment: Do you want to hurt yourself or someone else? Patient reports no desire to harm self or others. Onset of symptoms was November 15, 2021. 07:37 Method Of Arrival: Wheelchair iw 07:37 Acuity: DESHAWN 3 iw Historical: - Allergies: 07:39 Zoloft; iw - Home Meds: 07:39 amlodipine 10 mg tab 1 tab once daily [Active]; carvedilol 12.5 mg Oral tab 1 tab 2 iw times per day [Active]; duloxetine 60 mg Oral cpDR twice a day [Active]; gabapentin 300 mg Oral cap 1 cap 3 times per day [Active]; metformin 500 mg Oral tab 1 tab 2 times per day [Active]; metoprolol tartrate 100 mg Oral tab 1 tab 2 times per day [Active]; glipizide 10 mg oral tab 2 times per day [Active]; losartan oral [Active]; 10:08 aspirin 81 mg Oral chew 1 tab once daily [Active]; cyclobenzaprine 10 mg Oral tab 1 tab eo2 3 times per day [Active]; Flomax 0.4 mg Oral cp24 1 cap once daily [Active]; irbesartan 300 mg Oral tab 1 tab once daily [Active]; Trintellix 10 mg Oral tab 1 tab once daily [Active]; valsartan 320 mg Oral tab 1 tab once daily [Active]; - PMHx: 07:39 Diabetes - NIDDM; Hypertension; Pancreatitis; prostate problems; neuron pain; iw - PSHx: 07:49 right AKA; left knee; colon resection; iw - Immunization history:: Client reports receiving the Kofi \\T\\ Kofi single-dose vaccine. - Social history:: Smoking status: Patient denies any tobacco usage or history of. Screenin:45 Abuse screen: Denies threats or abuse. Nutritional screening: No deficits noted. eo2 Tuberculosis screening: No symptoms or risk factors identified. Fall Risk Ambulatory Aid- Crutches/Cane/Walker (15 pts). Assessment: 08:45 General: Appears in no apparent distress. comfortable, Behavior is calm, cooperative. eo2 Pain: Complains of pain in mid to lower abdomen. Neuro: No deficits noted. Level of Consciousness is awake, alert, obeys commands, Oriented to person, place, time, situation. Cardiovascular: No deficits noted. Denies chest pain, shortness of breath, Respiratory: No deficits noted. Breath sounds are clear bilaterally. Denies shortness of breath. GI: Abdomen is round Bowel sounds present X 4 quads. Abdomen is tender to palpation in mid-lower abdomen Reports lower abdominal pain, bloating, indigestion, and belching onset last night. Pt denies N/V/D. Musculoskeletal: Amputation of right BKA, . 16:28 Reassessment: Dr. Martinez at bedside, pt updated on plan, made aware of NPO status, eo2 verbalized understanding. Comfort measures met, will continue to monitor. 18:48 Reassessment: In to administer maintenance fluids on patient at 1800, pt's 18g eo2 ultrasound placed IV infiltrated, RN attempted to place PIV 2 more times, unsuccessful, Sourav RN now at bedside to establish access. Pt reporting pain worsening abdominal pain 8/10. Vital Signs: 07:37 BP 124 / 81; Pulse 85; Resp 16; Temp 97.8; Pulse Ox 97% on R/A; Weight 105.23 kg; iw Height 6 ft. 0 in. (182.88 cm); Pain 9/10; 08:15 BP 136 / 75; Pulse 70; Resp 17; Pulse Ox 96% ; Pain 8/10; eo2 09:15 BP 128 / 83; Pulse 70; Resp 15; Pulse Ox 97% ; Pain 3/10; eo2 10:00 BP 137 / 77; Pulse 71; Resp 15; Pulse Ox 96% ; Pain 3/10; eo2 12:00 BP 155 / 87; Pulse 69; Resp 15; Pulse Ox 98% on R/A; Pain 8/10; eo2 13:00 BP 143 / 87; Pulse 73; Resp 15; Pulse Ox 97% ; Pain 5/10; eo2 13:14 Pain 4/10; eo2 14:00 BP 157 / 128; Pulse 77; Resp 17; Pulse Ox 97% ; eo2 15:00 BP 135 / 101; Pulse 81; Resp 17; Pulse Ox 97% ; Pain 8/10; eo2 16:00 BP 116 / 87; Pulse 76; Resp 15; Pulse Ox 97% ; eo2 16:32 Pain 5/10; eo2 16:33 Pain 5/10; eo2 17:00 BP 146 / 84; Pulse 71; Resp 17; Pulse Ox 96% ; eo2 18:00 BP 126 / 83; Pulse 69; Resp 17; Pulse Ox 96% ; Pain 8/10; eo2 07:37 Body Mass Index 31.46 (105.23 kg, 182.88 cm) iw ED Course: 07:13 Patient arrived in ED. am2 07:13 Ruy Stock DO is Private Physician. am2 07:39 Triage completed. iw 07:41 Arm band placed on. iw 07:42 Neelima Méndez MD is Attending Physician. ma2 07:42 Lj Weir NP is PHCP. pm1 08:03 Aminata Day, AMANDO is Primary Nurse. eo2 08:45 Allergy band placed. Placed in gown. Bed in low position. Call light in reach. Side eo2 rails up X2. Pulse ox on. NIBP on. Door closed. Noise minimized. Warm blanket given. 08:45 No provider procedures requiring assistance completed. eo2 08:55 Inserted saline lock: 18 gauge in right upper arm, using aseptic technique. ,using eo2 aseptic technique. ultrasound guided IV Blood collected. 09:05 COVID-19 (Coronavirus) Document "Date of Onset" if Symptomatic Sent. mh5 09:05 Basic Metabolic Panel Sent. 5 09:05 CBC with Diff Sent. 5 09:05 Hepatic Function Sent. 5 09:05 Lipase Sent. 5 13:51 CT Abd/Pelvis - IV Contrast Only In Process Unspecified. EDMS 14:38 Tristen Morris MD is Hospitalizing Provider. pm1 19:14 Primary Nurse role handed off by Aminata Day RN cs9 19:25 Inserted saline lock: 18 gauge in right EJ, using aseptic technique. bp 19:26 Report given to Petrona GOEL, Pt remains in NAD. eo2 19:32 Yury Bacon RN is Primary Nurse. as6 20:29 Patient admitted, IV remains in place. as6 Administered Medications: 09:00 Drug: morphine 4 mg Route: IVP; Site: right upper arm; eo2 10:00 Follow up: Response: No adverse reaction; Pain is decreased eo2 09:00 Drug: Zofran (Ondansetron) 4 mg Route: IVP; Site: right upper arm; eo2 10:00 Follow up: Response: No adverse reaction eo2 09:11 Drug: NS 0.9% 500 ml Route: IV; Rate: bolus; Site: right upper arm; eo2 10:11 Follow up: Response: No adverse reaction; IV Status: Completed infusion; IV Intake: eo2 500ml 12:30 Drug: morphine 4 mg Route: IVP; Site: right upper arm; eo2 13:14 Follow up: Pain 4/10 Adult; Response: No adverse reaction; Pain is decreased eo2 15:42 Drug: morphine 4 mg Route: IVP; Site: right upper arm; eo2 16:32 Follow up: Pain 5/10 Adult; Response: No adverse reaction; Pain is decreased eo2 Intake: 10:11 IV: 500ml; Total: 500ml. eo2 Output: 12:32 Urine: 275ml (Voided); Total: 275ml. eo2 Outcome: 14:39 Decision to Hospitalize by Provider. pm1 20:29 Admitted to Med/surg accompanied by tech, room 208, with chart, Report called to kasey fitch rn 20:29 Condition: stable 20:42 Patient left the ED. as6 Signatures: Dispatcher [employer] Shara Ramsey RN RN iw Marinas, Patrick, NP TICKET WRITER pm1 Yolie Scott 5 Ana Joya am2 Sourav Alford, RN RN bp Neelima Méndez MD MD ma2 Candy Colon 9 Yury Bacon RN RN as6 Aminata Day RN RN eo2 Corrections: (The following items were deleted from the chart) 07:50 07:39 PSHx: None; [facility] 09:27 09:05 CORONAVIRUS drawn and sent. 5 EDMS
[2021-11-15] MEDS ORDERED: ONDANSETRON 4 MG/2 ML VIAL IV PRN (14:55)
--- NOTE | 2021-11-15 14:55 | P.HP ---
Certification for Inpatient Patient admitted to: Inpatient With expected LOS: >2 Midnights Practitioner: I am a practitioner with admitting privileges, knowledge of patient current condition, hospital course, and medical plan of care. Services: Services provided to patient in accordance with Admission requirements found in Title 42 Section 412.3 of the Code of Federal Regulations Patient History Date of Service: 11/15/21 Reason for admission: Pancreatitis History of Present Illness: Patient is 71 years of age mated with acute onset of abdominal pain history of pancreatitis before patient has a distal pancreatectomy in addition to bowel resection before current attacks of pancreatitis pain started suddenly upper abdominal associated with nausea and here to the emergency room receiving pain medication is doing somewhat better no other complaints Allergies sertraline [From Zoloft] Allergy (Verified 06/06/20 02:10) Hives/Rash Home Medications: Duloxetine HCl [Cymbalta] 60 mg PO BID 06/06/20 Gabapentin 300 mg PO TID PRN 06/06/20 Metformin HCl [Metformin HCl ER] 750 mg PO BID 06/06/20 Metoprolol Tartrate [Lopressor*] 50 mg PO BID 6AM 6PM #60 tab 06/09/20 Simvastatin 20 mg PO DAILY 07/07/21 Famotidine [Pepcid] 20 mg PO BID #60 tab 07/10/21 Folic Acid 1 mg PO DAILY #30 tablet 07/10/21 Losartan Potassium 25 mg PO DAILY #30 tablet 07/10/21 Thiamine HCl 100 mg PO DAILY #30 tablet 07/10/21 Tramadol HCl [Ultram] 50 mg PO BID PRN #10 tablet 07/10/21 - Past Medical/Surgical History Diabetic: Yes -: HTN -: Diabetes mellitus -: neuropathy -: arthritis -: neuropathy -: Pancreatitis -: BPH -: cholecystectomy -: spleenectomy -: lumbar surgery -: left knee replacement -: 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 -: appendectomy -: hemorrhoid surgery -: colectomy - Family History Mother -: Heart disease Father -: Lung disease, Liver disease grandfather -: Other (see notes) Notes: liver cirrhosis - Social History Alcohol use: No CD- Drugs: No Caffeine use: Yes Review of Systems Gastrointestinal: As per HPI Physical Examination - Vital Signs Temperature: 97.8 F Blood Pressure: 124/81 Pulse: 85 Respirations: 16 Pulse Ox (%): 97 (RA) - Physical Exam General: Alert, In no apparent distress, Oriented x3 Neck: Supple Respiratory: Clear to auscultation bilaterally Cardiovascular: No edema, Regular rate/rhythm Gastrointestinal: Normal bowel sounds, Non-distended, Tenderness (Tenderness confined in the upper quadrants) Musculoskeletal: No clubbing, No swelling Integumentary: No rashes, No breakdown - Studies Laboratory Data (last 24 hrs) 11/15/21 09:27: Sodium 137, Potassium 4.8, BUN 13, Creatinine 1.07, Glucose 217 H, Total Bilirubin 0.5, AST 19, ALT 23, Alkaline Phosphatase 105, Lipase 91 11/15/21 08:50: WBC 13.20 H, Hgb 13.9, Hct 42.8, Plt Count 388 Assessment and Plan - Problems (Diagnosis) (1) Acute pancreatitis Current Visit: No Status: Acute Plan: Patient is 71 years of age admitted with acute pancreatitis lipase level is normal CT scan shows mild diffuse pancreatitis no evidence of bowel obstruction vital signs stable continue with n.p.o. IV fluids morphine monitor lipase levels Qualifiers: Pancreatitis type: unspecified pancreatitis type Acute pancreatitis complication: no infection or necrosis Qualified Code(s): K85.90 - Acute pancreatitis without necrosis or infection, unspecified - Advance Directives Does patient have a Living Will: No Does patient have a Durable POA for Healthcare: No
[2021-11-15] MEDS: NA CHLORIDE 0.9% 1,000 ML IV SCH ×2 (15:00→22:10)
[2021-11-15] MEDS ORDERED: INSULIN -REGULAR HUMAN 50 UNIT/0.5 ML ML SQ SCH (16:30)
[2021-11-15] MEDS: INSULIN -REGULAR HUMAN 50 UNIT/0.5 ML ML SQ SCH ×2 (16:30→20:36)
[2021-11-15] MEDS ORDERED: NA CHLORIDE 0.9% 1,000 ML ONE (17:42)
[2021-11-15] MEDS ORDERED: MORPHINE 2 MG/ML SYR ONE (20:05)
[2021-11-15] MEDS: MORPHINE 2 MG/ML SYR IV PRN ×2 (20:08→23:21)
[2021-11-15 21:28] VITALS: BMI 31.1
[2021-11-15 21:41] VITALS: O2SAT 96
[2021-11-16] MEDS: NA CHLORIDE 0.9% 1,000 ML IV SCH (01:00)
[2021-11-16] MEDS: MORPHINE 2 MG/ML SYR IV PRN (03:35)
[2021-11-16 04:40] LABS: Absolute Lymphocytes (CBC) 4.6 K/uL (0.7-4.9); Basophils % 0.5 % (0-1.3); Hematocrit 40.7 % (39.6-49.0); Lymphocytes % 38.1 % (15.3-44.8); RBC Red Blood Cell Count 4.28 M/uL (4.33-5.43)
[2021-11-16 04:41] LABS: ALT/SGPT 53 U/L (12-78); AST/SGOT 70 U/L (15-37); Albumin 2.6 g/dL (3.4-5.0); Alkaline Phosphatase 121 U/L (45-117); BUN Blood Urea Nitrogen 9 mg/dL (7-18); Bicarbonate 25 mmol/L (21-32); Bilirubin Total 0.7 mg/dL (0.2-1.0); Glucose Level 124 mg/dL (74-106); Lipase 87 U/L (73-393); Potassium 3.7 mmol/L (3.5-5.1); Protein, Total 6.3 g/dL (6.4-8.2); Sodium Level 140 mmol/L (136-145)
[2021-11-16] MEDS: INSULIN -REGULAR HUMAN 50 UNIT/0.5 ML ML SQ SCH ×2 (05:12)
[2021-11-16 07:56] LABS: Urine Appearance CLEAR (Clear); Urine Bilirubin NEGATIVE (Negative); Urine Blood NEGATIVE (Negative); Urine Color YELLOW (Yellow); Urine Glucose NEGATIVE (Negative); Urine Protein NEGATIVE (Negative); Urine Specific Gravity 1.015 (1.005-1.030)
[2021-11-16 07:57] LABS: Urine Microscopic Reflex NO UMIC
[2021-11-16] MEDS ORDERED: ENOXAPARIN 40 MG/0.4 ML SQ SCH (09:00)
[2021-11-16] MEDS ORDERED: PNEUMOCOCCAL VACCINE 0.5 ML IMVAC ONE (09:00)
[2021-11-16] MEDS ORDERED: INFLUENZA VACCINE (for 6+ mo) 0.5 ML DOSE IMVAC ONE (09:00)
[2021-11-16 09:20] VITALS: BP 167/82; TEMP 97
--- NOTE | 2021-11-16 10:02 | P.DS ---
Admission Date: 11/15/21 Discharge Date: 11/16/21 Disposition: ROUTINE DISCHARGE Discharge Condition: GOOD Reason for Admission: Pancreatitis - Problems (1) Acute pancreatitis Current Visit: No Status: Acute Qualifiers: Pancreatitis type: unspecified pancreatitis type Acute pancreatitis complication: no infection or necrosis Qualified Code(s): K85.90 - Acute pancreatitis without necrosis or infection, unspecified Brief History of Present Illness: Patient is 71 years of age mated with acute onset of abdominal pain history of pancreatitis before patient has a distal pancreatectomy in addition to bowel resection before current attacks of pancreatitis pain started suddenly upper abdominal associated with nausea and here to the emergency room receiving pain medication is doing somewhat better no other complaints Hospital Course: Patient was admitted here for observation CT scan showed evidence of mild pancreatitis his lipase levels were all normal he did well during the course of the stay and was prescribed some tramadol to go home a full diet was also prescribed this morning he is otherwise feeling fine vital signs are all stable abdomen still shows some mild tenderness chemistries reviewed his chest is clear follow-up with his primary care physician Vital Signs/Physical Exam: Temp Pulse Resp BP Pulse Ox 97.0 F 99 H 20 167/82 H 95 11/16/21 08:00 11/16/21 08:00 11/16/21 08:00 11/16/21 08:00 11/16/21 08:00 Laboratory Data at Discharge: WBC 12.10 K/uL (4.3-10.9) H 11/16/21 03:54 Hgb 13.2 g/dL (13.6-17.9) L 11/16/21 03:54 Hct 40.7 % (39.6-49.0) 11/16/21 03:54 Plt Count 357 K/uL (152-406) 11/16/21 03:54 Sodium 140 mmol/L (136-145) 11/16/21 03:54 Potassium 3.7 mmol/L (3.5-5.1) 11/16/21 03:54 BUN 9 mg/dL (7-18) 11/16/21 03:54 Creatinine 0.66 mg/dL (0.55-1.3) 11/16/21 03:54 Glucose 124 mg/dL (74-106) H 11/16/21 03:54 Total Bilirubin 0.7 mg/dL (0.2-1.0) 11/16/21 03:54 AST 70 U/L (15-37) H 11/16/21 03:54 ALT 53 U/L (12-78) 11/16/21 03:54 Alkaline Phosphatase 121 U/L (45-117) H 11/16/21 03:54 Lipase 87 U/L (73-393) 11/16/21 03:54 Home Medications: Duloxetine HCl [Cymbalta] 60 mg PO BID 06/06/20 Gabapentin 300 mg PO TID PRN 06/06/20 Metformin HCl [Metformin HCl ER] 750 mg PO BID 06/06/20 Metoprolol Tartrate [Lopressor*] 50 mg PO BID 6AM 6PM #60 tab 06/09/20 Famotidine [Pepcid*] 20 mg PO BID #60 tab 07/10/21 Losartan Potassium 25 mg PO DAILY #30 tablet 07/10/21 Thiamine HCl 100 mg PO DAILY #30 tablet 07/10/21 traMADol HCL [Ultram*] 50 mg PO TID PRN #10 tab 11/16/21 New Medications: traMADol HCL [Ultram*] 50 mg PO TID PRN #10 tab PRN Reason: Pain Followup: Ruy Stock DO [Primary Care Provider] -
== END 2021-11-16 11:39 | disposition home or self-care (01) | DRG 440 ==
LOC: ER 07:12 → ERHOLD 15:04 → 2ND 20:21
PROVIDERS: ADMIT Internal Medicine Sleep Medicine; ATTEND Internal Medicine Sleep Medicine
DX: K85.90 Acute pancreatitis without necrosis or infection, unspecified (principal); I10 Essential (primary) hypertension; E11.40 Type 2 diabetes mellitus with diabetic neuropathy, unspecified; Z88.8 Allergy status to other drugs, medicaments and biological substances; Z79.84 Long term (current) use of oral hypoglycemic drugs; Z79.82 Long term (current) use of aspirin; Z79.899 Other long term (current) drug therapy; Z89.611 Acquired absence of right leg above knee; Z20.822 Contact with and (suspected) exposure to COVID-19; Z90.81 Acquired absence of spleen; Z96.652 Presence of left artificial knee joint
CPT/HCPCS: 36415; 74177; 80048; 80053; 80076; 81003; 82947; 83690; 85025; 96361; 96374; 96375; 99285; J1650; J2270; J2405; J7030; J7040; Q9967; U0003

== ENCOUNTER 2022-04-08 14:26 | Inpatient (IN) | payer OTHER ==
--- OUTSIDE RECORDS SUMMARY | 2022-04-08 14:30 | XMS REPORT | Continuity of Care Document ---
:1950 Author Organization [facility] Address [address] [place] [address] [address]. [address] [place] [address] Care Team Providers Name Role Phone GE Primary Care Physician Unavailable Jeremías Stock Attending Clinician Unavailable SYSTEM, NOT IN Attending Clinician Unavailable Radha Attending Clinician Unavailable ATTAR Attending Clinician Unavailable YAHAIRA Attending Clinician Unavailable Radha Admitting Clinician Unavailable Payers Payer Name Policy Type Policy Number Effective Date Expiration Date S [facility] [id number] 2021 (MEDICARE 00:00:00 REPLACEMENT O) MEDICARE PART A AND [id number] 2009 [facility] 00:00[facility]00 [id number] 2018 SUPPLEMENT-SECONDAR 00:00:00 Y ONLY Problems This patient has no known problems. Allergies, Adverse Reactions, Alerts This patient has no known allergies or adverse reactions. Medications This patient has no known medications. Procedures This patient has no known procedures. Encounters Start End Encounter Admission Attending Care Care Encounter Source Date/Time Date/Time Type Type Clinicians Facility Department ID 2022-03-10 Outpatient StockCORAL robertson [facility] [id number] Common 10:25:03 [facility] 2021-12-17 Outpatient StockCORAL robertson [facility] [id number] Common 13:57:21 [facility] 2020-07-22 Outpatient SYSTEM, YESICA ROBERT [id number] 10:27:39 PROVIDER Doe jeffers 2022-02-03 2022-02-03 Outpatient Radha DALEYG [id number] [facility] 01:00:00 01:00:00 [facility] 2021-11-03 2021-11-03 Outpatient [facility] [id number] 00:00:00 00:00:00 [address] 2021-03-24 2021-03-24 [place] [id number] [facility] 03:56:00 03:56:00 0503 [facility] 2020-07-18 2020-07-18 Outpatient GE, DARREL MDA MDA [id number] 13:04:26 13:04:26 Doe o n 2020-07-18 2020-07-18 Outpatient GE, DARREL MDA MDA [id number] 13:04:22 13:04:22 Doe o n 2020-07-18 2020-07-18 Outpatient GE, DARREL MDA MDA [id number] 13:03:54 13:03:54 Doe o n 2020-07-18 2020-07-18 Outpatient GE, DARREL MDA MDA [id number] 13:03:53 13:03:53 Doe o n 2020-07-18 2020-07-18 Outpatient GE, DARREL MDA MDA [id number] 13:03:52 13:03:52 Doe o n 2020-07-18 2020-07-18 Outpatient GE, DARREL MDA MDA [id number] 13:03:51 13:03:51 Doe o n 2020-07-18 2020-07-18 Outpatient GE, DARREL MDA MDA [id number] 13:03:50 13:03:50 Doe o n 2020-07-11 2020-07-11 Outpatient EL GE, DARREL MDA MDA [id number] 00:00:00 00:00:00 Doe o n 2020-07-09 2020-07-09 Outpatient EL GE, DARREL MDA MDA [id number] 15:17:45 15:17:45 Doe o n Results This patient has no known results.
--- OUTSIDE RECORDS SUMMARY | 2022-04-08 14:30 | XMS REPORT | Clinical Summary ---
:1950 Author Organization [facility] Address [address] [place] [address] Care Team Providers Name Role Phone MD [...] Vaccination (1) 1955 Results Not on fileafter 04/08/2021 Insurance Payer Benefit Plan Subscriber ID Effective Phone Address Typ e / Group Dates MEDICARE MEDICARE PART [id number] 2009-Prese [phone] [facility] Medicare A AND B nt [id number] SOLUTIONS [address] [facility] [place] [phone] [employer] SENIOR AETNA SENIOR [id number] 2018-Pres [address] [employer] SUPPLEMENT SUPPLEMENT-SE ent [id number] [place] [address] Care Teams Narrow 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
[2022-04-08] MEDS ORDERED: MORPHINE 4 MG/ML SYR ONE (17:32)
[2022-04-08] MEDS ORDERED: ONDANSETRON 4 MG/2 ML VIAL ONE ×2 (17:32→22:22)
[2022-04-08] MEDS ORDERED: NA CHLORIDE 0.9% 1,000 ML ONE ×3 (17:32→22:01)
[2022-04-08] MEDS ORDERED: FAMOTIDINE 20 MG/2 ML VIAL IV ONE (17:32)
--- NOTE | 2022-04-08 17:43 | RAD REPORT ---
EXAM DESCRIPTION: RAD - Chest Single View - 04/08/2022 5:34 pm CLINICAL HISTORY: epigatsric pain COMPARISON: Chest Single View dated 07/07/2021; Chest Single View dated 06/05/2020; Abdomen 1 View (KU B) dated 12/17/2019; Abdomen 1 View (KUB) dated 12/15/2019 FINDINGS: Lines: None. Lungs: No evidence of edema or pneumonia. Similar elevation of right hemidiaphragm. Pleural: No significant pleural effusions or pneumothorax. Cardiac: The heart size is within normal limits. Bones: No acute fractures. Other: IMPRESSION: No acute cardiopulmonary disease.
[2022-04-08 18:13] LABS: Hematocrit 47.2 % (39.6-49.0); RBC Red Blood Cell Count 5.13 M/uL (4.33-5.43)
[2022-04-08 18:14] LABS: Absolute Lymphocytes (CBC) 4.2 K/uL (0.7-4.9); Lymphocytes % 25.2 % (15.3-44.8); MPV 8.9 fL (7.6-11.3)
[2022-04-08 18:31] LABS: Albumin 3.4 g/dL (3.4-5.0); Bilirubin Total 0.5 mg/dL (0.2-1.0); Potassium 4.4 mmol/L (3.5-5.1); Protein, Total 7.5 g/dL (6.4-8.2)
--- NOTE | 2022-04-08 19:39 | RAD REPORT ---
EXAM DESCRIPTION: CTAbdomen Pelvis W Contrast - 04/08/2022 7:20 pm CLINICAL HISTORY: Epigastric pain COMPARISON: <Comparisons> TECHNIQUE: CT of the abdomen and pelvis was performed with contrast. All CT scans are performed using dose optimization technique as appropriate and may include automated exposure control or mA/KV adjustment according to patient size. FINDINGS: Lower chest: No acute abnormality. Liver: Mild intrahepatic biliary ductal dilatation. Hepatic steatosis. Biliary: Cholecystectomy. The extrahepatic bile duct is dilated at 11 millimeters. Possible stone in the distal common bile duct. Stomach: No significant focal abnormality. Duodenum: Thickening is present at the duodenum. Pancreas: Mild stranding around the pancreatic head. Coarse pancreatic calcifications. No pancreatic ductal dilatation. Atrophy. Spleen: No significant abnormality. Adrenal: No suspicious lesions. Kidney/ureter: No hydronephrosis. No renal calculi. Too small to characterize and/or benign appearing renal lesions are noted. Retroperitoneum: No retroperitoneal adenopathy. Vascular: No aneurysm. Atherosclerosis. Bowel: Patulous small bowel centrally with air-fluid levels at the small bowel anastomosis. No bowel obstruction. Partial colectomy. Diverticulosis. No evidence of acute diverticulitis.. Peritoneum: No ascites or free air. Bladder: Grossly unremarkable. Reproductive: No adnexal masses. Bones: No acute fracture. Fusion hardware at L5-S1 on the right side. Multilevel degenerative changes are present in the spine. Other: n/a IMPRESSION: Findings concern on acute on chronic pancreatitis. Increased thickening at the proximal duodenum may be reactive as result of adjacent pancreatitis or related to underlying duodenal inflamm ation such as from duodenitis or peptic ulcer disease.
[2022-04-08] MEDS ORDERED: HYDROMORPHONE HCL 1 MG/ML INJ ONE (19:40)
[2022-04-08] MEDS ORDERED: NA CHLORIDE 0.9% 500 ML ONE (19:41)
--- NOTE | 2022-04-08 19:50 | ER ---
Nurse's Notes [facility] Name: Anish Leon Age: 71 yrs Sex: Male : 1950 Arrival Date: 04/08/2022 Time: 14:28 Bed 24 Private MD: Ruy Stock Diagnosis: Acute Pancreatitis Presentation: 04/08 14:33 Chief complaint: Patient states: he believes he is having a pancreatitis flare up. ap3 Patient states this occurs approx every 6 months, almost like clock work. Symptoms began Monday April 04, 2022. Patients complains of mid upper abdominal pain with nausea and vomiting. Coronavirus screen: At this time, the client does not indicate any symptoms associated with coronavirus-19. Ebola Screen: No symptoms or risks identified at this time. Initial Sepsis Screen: Does the patient meet any 2 criteria? No. Patient's initial sepsis screen is negative. Does the patient have a suspected source of infection? No. Patient's initial sepsis screen is negative. Risk Assessment: Do you want to hurt yourself or someone else? Patient reports no desire to harm self or others. Onset of symptoms was April 04, 2022. 14:33 Method Of Arrival: Wheelchair ap3 14:33 Acuity: DESHAWN 3 ap3 Triage Assessment: 14:36 General: Appears in no apparent distress. Behavior is calm, cooperative. Pain: ap3 Complains of pain in epigastric area Pain currently is 8 out of 10 on a pain scale. Pain began gradually, 2-3 days ago. Neuro: Level of Consciousness is awake, alert, obeys commands, Oriented to person, place, time, situation. Cardiovascular: Patient's skin is warm and dry. Respiratory: Airway is patent Respiratory effort is even, unlabored. GI: Reports nausea, vomiting. Historical: - Allergies: 14:35 Zoloft; ap3 - PMHx: 14:35 Diabetes - NIDDM; Hypertension; neuron pain; Pancreatitis; prostate problems; ap3 - PSHx: 14:35 colon resection; left knee; right AKA; ap3 - Immunization history:: Client reports receiving the 2nd dose of the Covid vaccine. - Social history:: Smoking status: Patient denies any tobacco usage or history of. Screenin:37 Abuse screen: Denies threats or abuse. Nutritional screening: No deficits noted. ap3 Tuberculosis screening: No symptoms or risk factors identified. Fall Risk Fall in past 12 months (25 points). Secondary diagnosis (15 points) impaired mobility, Ambulatory Aid- Crutches/Cane/Walker (15 pts). Gait- Impaired (20 pts.). Mental Status- Oriented to own ability (0 pts). Assessment: 18:20 General: Appears in no apparent distress. comfortable, Behavior is calm, cooperative, ld1 appropriate for age. Pain: Complains of pain in abdomen Pain does not radiate. Pain currently is 8 out of 10 on a pain scale. Quality of pain is described as throbbing, Pain began suddenly. Neuro: Level of Consciousness is awake, alert, obeys commands, Oriented to person, place, time, situation. Cardiovascular: Capillary refill < 3 seconds Patient's skin is warm and dry. Rhythm is sinus rhythm. Respiratory: Airway is patent Respiratory effort is even, unlabored. GI: Abdomen is round non-distended, Bowel sounds present X 4 quads. Abd is soft and non tender. : No signs and/or symptoms were reported regarding the genitourinary system. EENT: No signs and/or symptoms were reported regarding the EENT system. Derm: No signs and/or symptoms reported regarding the dermatologic system. Musculoskeletal: No signs and/or symptoms reported regarding the musculoskeletal system. Vital Signs: 14:33 BP 137 / 94; Pulse 127; Resp 17; Temp 97.5; Pulse Ox 96% ; Weight 103.42 kg; Height 6 ap3 ft. (182.88 cm); Pain 7/10; 18:20 BP 149 / 103; Pulse 103; Resp 18; Pulse Ox 96% on R/A; ld1 19:41 BP 148 / 99; Pulse 98; Resp 18; Pulse Ox 98% on R/A; ld1 14:33 Body Mass Index 30.92 (103.42 kg, 182.88 cm) ap3 ED Course: 14:28 Patient arrived in ED. am2 14:28 Ruy Stock DO is Private Physician. am2 14:31 Krish Nj PA is PHCP. cp 14:31 Adelfo Moss DO is Attending Physician. cp 14:35 Triage completed. ap3 14:38 Arm band placed on right wrist. ap3 17:21 Lisa Ford, RN is Primary Nurse. ld1 17:36 XRAY Chest (1 view) In Process Unspecified. EDMS 18:06 Inserted saline lock: 20 gauge in right forearm, using aseptic technique. Blood ss collected. 18:20 Patient has correct armband on for positive identification. Placed in gown. Bed in low ld1 position. Call light in reach. Side rails up X2. athletic monitor on. Pulse ox on. NIBP on. Door closed. Noise minimized. Warm blanket given. 18:20 No provider procedures requiring assistance completed. ld1 19:22 CT Abd/Pelvis - IV Contrast Only In Process Unspecified. EDMS 19:47 Neelima Becker MD is Hospitalizing Provider. cp 20:05 Urine Microscopic Only Sent. ld1 20:30 COVID-19 SARS RT PCR (Document "Date of Onset" if Symptomatic) Sent. ld1 05 05:00 Notified ED physician of a critical lab result(s). Mag 1.3. ll3 Administered Medications: 04/08 19:10 Discontinued: NS 0.9% 500 ml IV at bolus once cp 18:16 Drug: Pepcid (famotidine) 20 mg Route: IVP; Site: right forearm; ld1 18:16 Drug: Zofran (Ondansetron) 4 mg Route: IVP; Site: right forearm; ld1 18:16 Drug: NS 0.9% 500 ml Route: IV; Rate: bolus; Site: right forearm; ld1 18:16 Drug: NS 0.9% 500 ml Route: IV; Rate: 100 ml/hr; Site: right forearm; ld1 18:16 Drug: morphine 4 mg Route: IVP; Site: right forearm; ld1 19:11 CANCELLED (Physician Discretion): NS 0.9% 1000 ml IV at 1 bolus Per protocol; 1000 mL cp bolus 19:40 Drug: NS 0.9% 500 ml Route: IV; Rate: bolus; Site: right forearm; ld1 19:40 Drug: NS 0.9% 1000 ml Route: IV; Rate: 1 bolus; Site: right forearm; ld1 19:40 Drug: Dilaudid (HYDROmorphone) 1 mg Route: IVP; Site: right forearm; ld1 20:10 Drug: ProTONIX (pantoprazole) 40 mg Route: IVP; Site: right forearm; ld1 20:15 Drug: Zosyn (piperacillin-tazobactam) 3.375 grams Route: IVPB; Infused Over: 60 mins; ld1 Site: right forearm; Medication: 14:38 VIS not applicable for this client. ap3 Outcome: 19:50 Decision to Hospitalize by Provider. trupti 04/09 13:24 Patient left the ED. iw Signatures: Dispatcher [employer] EDMS Shara Bautista RN RN iw Ann Adame RN RN Krish Montgomery PA PA Ana Best Amanda, RN RN ap3 Lisa Ford RN RN ld1 Nano Cohen RN RN ll3
--- NOTE | 2022-04-08 19:51 | EDPHYS ---
Physician Documentation [facility] Name: Anish Leon Age: 71 yrs Sex: Male : 1950 Arrival Date: 04/08/2022 Time: 14:28 Bed 24 Private MD: [facility] ED Physician Adelfo oMss HPI: 04/08 16:30 This 71 yrs old Male presents to ER via Wheelchair with complaints of Abdominal Pain. cp 16:30 The patient presents with abdominal pain in the upper abdomen. cp 16:30 Onset: The symptoms/episode began/occurred several days ago. cp 16:30 The symptoms radiate to back. Associated signs and symptoms: Pertinent positives: cp nausea and vomiting, Pertinent negatives: constipation, diarrhea, fever, vomiting blood. The symptoms are described as constant. Historical: - Allergies: 14:35 Zoloft; ap3 - PMHx: 14:35 Diabetes - NIDDM; Hypertension; neuron pain; Pancreatitis; prostate problems; ap3 - PSHx: 14:35 colon resection; left knee; right AKA; ap3 - Immunization history:: Client reports receiving the 2nd dose of the Covid vaccine. - Social history:: Smoking status: Patient denies any tobacco usage or history of. ROS: 16:40 Constitutional: Negative for body aches, chills, fever, poor PO intake. cp 16:40 Eyes: Negative for injury, pain, redness, and discharge. cp 16:40 ENT: Negative for drainage from ear(s), ear pain, sore throat, difficulty swallowing, difficulty handling secretions. 16:40 Cardiovascular: Negative for chest pain, edema, palpitations. 16:40 Respiratory: Negative for cough, shortness of breath, wheezing. 16:40 Abdomen/GI: Positive for abdominal pain, nausea and vomiting, Negative for diarrhea, constipation, hematemesis, black/tarry stool, rectal bleeding. 16:40 Back: Positive for radiated pain. 16:40 : Negative for urinary symptoms. 16:40 Neuro: Negative for altered mental status, headache, weakness. 16:40 All other systems are negative. Exam: 16:45 Constitutional: The patient appears in no acute distress, alert, awake, cp non-diaphoretic, non-toxic, well developed, well nourished. 16:45 Head/Face: Normocephalic, atraumatic. cp 16:45 Eyes: Periorbital structures: appear normal, Conjunctiva: normal, no exudate, no injection, Sclera: no appreciated abnormality, Lids and lashes: appear normal, bilaterally. 16:45 ENT: External ear(s): are unremarkable, Nose: is normal, Mouth: Lips: moist, Oral mucosa: moist, Posterior pharynx: Airway: no evidence of obstruction, patent. 16:45 Chest/axilla: Inspection: normal, Palpation: is normal, no crepitus, no tenderness. 16:45 Cardiovascular: Rate: tachycardic, Rhythm: regular, Edema: is not appreciated, JVD: is not appreciated. 16:45 Respiratory: the patient does not display signs of respiratory distress, Respirations: normal, no use of accessory muscles, no retractions, labored breathing, is not present, Breath sounds: are clear throughout, no decreased breath sounds, no stridor, no wheezing. 16:45 Abdomen/GI: Inspection: abdomen appears normal, Bowel sounds: active, all quadrants, Palpation: soft, in all quadrants, moderate abdominal tenderness, in the epigastric area, rebound tenderness, is not appreciated, voluntary guarding, is elicited in the epigastric area. 16:45 Back: CVA tenderness, is absent. 16:45 Neuro: Orientation: to person, place \\T\\ time. Mentation: is normal. Vital Signs: 14:33 BP 137 / 94; Pulse 127; Resp 17; Temp 97.5; Pulse Ox 96% ; Weight 103.42 kg; Height 6 ap3 ft. (182.88 cm); Pain 7/10; 18:20 BP 149 / 103; Pulse 103; Resp 18; Pulse Ox 96% on R/A; ld1 19:41 BP 148 / 99; Pulse 98; Resp 18; Pulse Ox 98% on R/A; ld1 14:33 Body Mass Index 30.92 (103.42 kg, 182.88 cm) ap3 MDM: 17:19 Patient medically screened. cp 19:45 Data reviewed: vital signs, nurses notes, lab test result(s), radiologic studies, CT cp scan. 19:45 Counseling: I had a detailed discussion with the patient and/or guardian regarding: the cp historical points, exam findings, and any diagnostic results supporting the discharge/admit diagnosis, lab results, radiology results, the need for further work-up and treatment in the hospital. Response to treatment: the patient's symptoms have markedly improved after treatment. 04/08 16:19 Order name: CBC with Diff; Complete Time: 18:50 cp 04/08 18:50 Interpretation: Normal except: WBC 16.5; NEUT A 10.1; MNA 1.7. cp 04/08 16:19 Order name: CMP; Complete Time: 18:50 cp 04/08 18:51 Interpretation: Normal except: CO2 19; GLUC 242; GFR 65. cp 04/08 16:19 Order name: Lipase; Complete Time: 18:50 cp 04/08 18:51 Interpretation: Abnormal: LIP 919. cp 04/08 16:19 Order name: Urine Microscopic Only 04/08 16:19 Order name: Lactate; Complete Time: 19:10 cp 04/08 19:10 Interpretation: Abnormal: LAC 2.8. cp 04/08 19:56 Order name: COVID-19 SARS RT PCR (Document "Date of Onset" if Symptomatic) 04/08 19:58 Order name: Urine Dipstick-Ancillary EDOH 04/08 20:26 Order name: Urine Culture EDOH 04/08 21:10 Order name: Urinalysis EDMS 04/08 21:10 Order name: Basic Metabolic Panel EDMS 04/08 21:10 Order name: Basic Metabolic Panel EDMS 04/08 21:10 Order name: Basic Metabolic Panel EDMS 04/08 21:10 Order name: Basic Metabolic Panel EDMS 04/08 21:10 Order name: CBC with Automated Diff EDMS 04/08 21:10 Order name: CBC with Automated Diff EDMS 04/08 21:10 Order name: CBC with Automated Diff EDMS 04/08 21:10 Order name: CBC with Automated Diff EDMS 04/08 21:10 Order name: Hemoglobin A1c EDMS 04/08 21:10 Order name: Hemoglobin A1c EDMS 04/08 21:10 Order name: Lipase EDMS 04/08 21:10 Order name: Lipase EDMS 04/08 21:10 Order name: Lipase EDMS 04/08 21:10 Order name: Lipase EDMS 04/08 21:10 Order name: Lipid Profile EDMS 04/08 21:10 Order name: Lipid Profile EDMS 04/08 21:10 Order name: Magnesium EDMS 04/08 21:10 Order name: Magnesium EDMS 04/08 21:10 Order name: Phosphorus EDMS 04/08 21:11 Order name: Phosphorus EDMS 04/08 21:11 Order name: Thyroid Stimulating Hormone EDMS 04/08 16:19 Order name: XRAY Chest (1 view); Complete Time: 18:14 cp 04/08 18:14 Interpretation: Report review. cp 04/08 16:19 Order name: CT Abd/Pelvis - IV Contrast Only; Complete Time: 19:40 cp 04/08 16:19 Order name: IV Saline Lock; Complete Time: 18:05 cp 04/08 16:19 Order name: Labs collected and sent; Complete Time: 18:05 cp 04/08 16:19 Order name: Urine Dipstick-Ancillary (obtain specimen); Complete Time: 20:05 cp 04/08 21:10 Order name: Clear Liquid, Advance as Tolerated EDMS 04/08 21:11 Order name: Thyroid Stimulating Hormone EDMS 04/09 04:37 Order name: Lactate Sepsis 2 HR Follow-up EDMS 04/09 08:00 Order name: Glucose, Ancillary Testing EDMS 04/09 11:30 Order name: Basic Metabolic Panel EDMS 04/09 11:30 Order name: Magnesium EDMS 04/09 11:30 Order name: Lipase EDMS Administered Medications: 19:10 Discontinued: NS 0.9% 500 ml IV at bolus once cp 18:16 Drug: Pepcid (famotidine) 20 mg Route: IVP; Site: right forearm; ld1 18:16 Drug: Zofran (Ondansetron) 4 mg Route: IVP; Site: right forearm; ld1 18:16 Drug: NS 0.9% 500 ml Route: IV; Rate: bolus; Site: right forearm; ld1 18:16 Drug: NS 0.9% 500 ml Route: IV; Rate: 100 ml/hr; Site: right forearm; ld1 18:16 Drug: morphine 4 mg Route: IVP; Site: right forearm; ld1 19:11 CANCELLED (Physician Discretion): NS 0.9% 1000 ml IV at 1 bolus Per protocol; 1000 mL cp bolus 19:40 Drug: NS 0.9% 500 ml Route: IV; Rate: bolus; Site: right forearm; ld1 19:40 Drug: NS 0.9% 1000 ml Route: IV; Rate: 1 bolus; Site: right forearm; ld1 19:40 Drug: Dilaudid (HYDROmorphone) 1 mg Route: IVP; Site: right forearm; ld1 20:10 Drug: ProTONIX (pantoprazole) 40 mg Route: IVP; Site: right forearm; ld1 20:15 Drug: Zosyn (piperacillin-tazobactam) 3.375 grams Route: IVPB; Infused Over: 60 mins; ld1 Site: right forearm; Disposition: 22:09 Co-signature as Attending Physician, Adelfo MASON was immediately available on-site ms3 in the Emergency Department for consultation in the care of the patient. . Disposition Summary: 04/08/22 19:50 Hospitalization Ordered Hospitalization Status: Inpatient Admission cp Provider: Neelima Becker cp Condition: Stable cp Problem: new cp Symptoms: have improved cp Bed/Room Type: Standard cp Location: Telemetry/MedSurg (Inpatient)(04/09/22 11:49) Room Assignment: [facility](04/09/22 11:49) Diagnosis - Acute Pancreatitis cp Forms: - Medication Reconciliation Form cp - SBAR form cp Signatures: Dispatcher [employer] EDFrancia Umaña RN RN Krish Hussein PA PA cp Nicko Frost Amanda, RN RN ap3 Adelfo Moss DO DO ms3 Lisa Ford RN RN ld1 Corrections: (The following items were deleted from the chart) 19:11 19:11 NS 0.9% 1000 ml IV at 1 bolus Per protocol; 1000 mL bolus ordered. cp cp 20:23 19:50 Telemetry/MedSurg (Inpatient) cp oe 20:23 19:50 cp oe 04/09 11:49 04/08 20:23 [facility] ER HOLD oe dw 04/09 11:49 04/08 20:23 ERHOLD- oe dw
[2022-04-08 19:58] LABS: Urine Blood Negative (Negative); Urine Glucose Trace (Negative); Urine Protein 1+ (Negative); Urine Specific Gravity 1.015 (1.005-1.030)
[2022-04-08] MEDS ORDERED: PANTOPRAZOLE 40 MG INJ ONE (20:04)
[2022-04-08] MEDS ORDERED: NA CHLORIDE 0.9% 100 ML IV ONE (20:04)
[2022-04-08] MEDS ORDERED: PIPERACIL/TAZO 3.375 GM VIAL IV ONE (20:05)
[2022-04-08 20:22] LABS: Urine Bacteria <20 /HPF (NONE SEEN); Urine RBC <5 /HPF (NONE SEEN)
[2022-04-08] MEDS ORDERED: ACETAMINOPHEN 500 MG TAB PO PRN (21:08)
[2022-04-08 21:43] VITALS: BMI 33.5
[2022-04-08] MEDS: NA CHLORIDE 0.9% 1,000 ML IV SCH (22:00)
[2022-04-08] MEDS ORDERED: ALPRAZOLAM 0.5 MG TABLET PO PRN (22:28)
[2022-04-08] MEDS ORDERED: LORAZEPAM 0.5 MG TABLET ONE (22:40)
[2022-04-08] MEDS ORDERED: ALPRAZOLAM 0.5 MG TABLET ONE (22:42)
--- NOTE | 2022-04-09 | P.HP ---
Certification for Inpatient Patient admitted to: Inpatient With expected LOS: <2 Midnights Patient will require the following post-hospital care: None Practitioner: I am a practitioner with admitting privileges, knowledge of patient current condition, hospital course, and medical plan of care. Services: Services provided to patient in accordance with Admission requirements found in Title 42 Section 412.3 of the Code of Federal Regulations <Cheryl Michelle - Last Filed: 04/09/22 00:10> Patient History Date of Service: 04/09/22 Reason for admission: Pancreatitis History of Present Illness: Patient is a 71-year-old male with past medical history of pancreatitis, BPH, hypertension, type 2 diabetes [id number] who presented to the emergency department with complaint of 4 days of epigastric pain, nausea, and vomiting. He states he experiences an episode of acute pancreatitis every 6 months. He believes it is secondary to a GI surgery he had years ago. He reports the symptoms are similar to previous episodes. Labs significant for WBC 16, lactic acid 2.8, positive UTI. He was given morphine, Pepcid, Zofran, fluids, and Dilaudid in the ED. CT showed acute on chronic pancreatitis. ED provider wishes admit patient for further evaluation and treatment. 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 -: appendectomy -: hemorrhoid surgery -: colectomy Psychosocial/ Personal History: Patient lives at home with his family - Family History Mother -: Heart disease Father -: Lung disease, Liver disease grandfather -: Other (see notes) Notes: liver cirrhosis - Social History Smoking Status: Never smoker Alcohol use: No CD- Drugs: No Caffeine use: No Place of Residence: Home <Cheryl Michelle - Last Filed: 04/09/22 00:10> Date of Service: 04/09/22 <Neelima Becker - Last Filed: 04/09/22 07:58> Allergies sertraline [From Zoloft] Allergy (Verified 06/06/20 02:10) Hives/Rash Home Medications: Duloxetine HCl [Cymbalta] 60 mg PO BID 06/06/20 Gabapentin 300 mg PO TID PRN 06/06/20 Metformin HCl [Metformin HCl ER] 750 mg PO BID 06/06/20 Metoprolol Tartrate [Lopressor*] 50 mg PO BID 6AM 6PM #60 tab 06/09/20 Famotidine [Pepcid*] 20 mg PO BID #60 tab 07/10/21 Losartan Potassium 25 mg PO DAILY #30 tablet 07/10/21 Thiamine HCl 100 mg PO DAILY #30 tablet 07/10/21 traMADol HCL [Ultram*] 50 mg PO TID PRN #10 tab 11/16/21 Review of Systems Gastrointestinal: Nausea, Vomiting, Abdominal Pain <Cheryl Michelle - Last Filed: 04/09/22 00:10> Physical Examination - Vital Signs Temperature: 98.1 F Blood Pressure: 128/82 Pulse: 93 Respirations: 12 Pulse Ox (%): 93 - Physical Exam General: Alert, In no apparent distress HEENT: Atraumatic, PERRLA, EOMI, Sclerae nonicteric Neck: Supple, 2+ carotid pulse no bruit, No LAD, Without JVD or thyroid abnormality Respiratory: Clear to auscultation bilaterally, Normal air movement Cardiovascular: Regular rate/rhythm, Normal S1 S2 Gastrointestinal: Normal bowel sounds, Non-distended, No rebound, No guarding, Tenderness Musculoskeletal: No tenderness Integumentary: No rashes Neurological: Normal speech, Sensation intact, Normal affect - Studies Laboratory Data (last 24 hrs) 04/08/22 18:00: Sodium 136, Potassium 4.4, BUN 14, Creatinine 1.20, Glucose 242 H, Total Bilirubin 0.5, AST 16, ALT 19, Alkaline Phosphatase 107, Lipase 919 H 04/08/22 18:00: WBC 16.5 H, Hgb 15.2, Hct 47.2, Plt Count 341 <Cheryl Michelle - Last Filed: 04/09/22 00:10> - Studies Laboratory Data (last 24 hrs) 04/08/22 18:00: Sodium 136, Potassium 4.4, BUN 14, Creatinine 1.20, Glucose 242 H, Total Bilirubin 0.5, AST 16, ALT 19, Alkaline Phosphatase 107, Lipase 919 H 04/08/22 18:00: WBC 16.5 H, Hgb 15.2, Hct 47.2, Plt Count 341 <Neelima Becker - Last Filed: 04/09/22 07:58> Assessment and Plan - Problems (Diagnosis) (1) Acute pancreatitis Current Visit: Yes Status: Acute Qualifiers: Pancreatitis type: unspecified pancreatitis type Acute pancreatitis complication: no infection or necrosis Qualified Code(s): K85.90 - Acute pancreatitis without necrosis or infection, unspecified (2) Leukocytosis Current Visit: Yes Status: Acute Qualifiers: Leukocytosis type: unspecified Qualified Code(s): D72.829 - Elevated white blood cell count, unspecified (3) Diabetes mellitus Current Visit: Yes Status: Chronic Qualifiers: Diabetes mellitus type: type 2 Diabetes mellitus senior care insulin 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 Received 1 dose of Zosyn in the ED. Monitor CBC. ACHS Accuchecks and mild sliding scale insulin. A1C and lipid panel ordered for morning. hydralazine PRN for BP spikes Check lipase daily reconcile and continue home medications Lovenox for VTE ppx Discharge Plan: Home Plan to discharge in: Greater than 2 days - Advance Directives Does patient have a Living Will: No Does patient have a Durable POA for Healthcare: No - Code Status/Comfort Care Code Status Assessed: Yes (Full) Critical Care: No Time Spent Managing Pts Care (In Minutes): 70 <Cheryl Michelle - Last Filed: 04/09/22 00:10> Date of Service: 04/09/22 Subjective: HPI as mentioned above Physical Examination: Vitals: Afebrile vital signs are stable Physical exam: Cardiovascular: Within normal limits. Lungs: Within normal limits Abdomen: Within normal limits Neuro: Awake, alert, oriented to person place and time Assessment: 1. Pancreatitis Plan: 1. Continue with current plan of care as mentioned above <Neelima Becker - Last Filed: 04/09/22 07:58>
[2022-04-09] MEDS: HYDROMORPHONE HCL 1 MG/ML INJ IV PRN ×3 (00:23→10:22)
[2022-04-09] MEDS ORDERED: HYDROMORPHONE HCL 1 MG/ML INJ ONE ×4 (00:25→12:24)
[2022-04-09] MEDS ORDERED: MORPHINE 2 MG/ML SYR IV ONE (03:04)
[2022-04-09] MEDS ORDERED: MORPHINE 2 MG/ML SYR ONE (03:23)
[2022-04-09 03:46] LABS: Absolute Lymphocytes (CBC) 3.7 K/uL (0.7-4.9); Hematocrit 41.6 % (39.6-49.0); Lymphocytes % 32.5 % (15.3-44.8); MPV 9.4 fL (7.6-11.3)
[2022-04-09 04:57] LABS: Phosphorus 2.8 mg/dL (2.5-4.9); Potassium 4.2 mmol/L (3.5-5.1); Thyroid Stimulating Hormone 2.06 uIU/mL (0.360-3.740)
[2022-04-09 05:00] LABS: Magnesium 1.3 mg/dL (1.8-2.4)
[2022-04-09] MEDS: NA CHLORIDE 0.9% 1,000 ML IV SCH ×3 (06:00→22:49)
[2022-04-09] MEDS ORDERED: NA CHLORIDE 0.9% 1,000 ML ONE (06:30)
[2022-04-09] MEDS: ONDANSETRON 4 MG/2 ML VIAL IV PRN ×4 (06:34→19:47)
[2022-04-09] MEDS ORDERED: ONDANSETRON 4 MG/2 ML VIAL ONE ×2 (06:35→12:02)
[2022-04-09] MEDS: INSULIN -REGULAR HUMAN 50 UNIT/0.5 ML ML SQ SCH ×4 (07:30→21:00)
[2022-04-09] MEDS ORDERED: ENOXAPARIN 40 MG/0.4 ML SQ ONE (07:56)
[2022-04-09] MEDS ORDERED: Magnesium Sulfate 2gm IVPB 2 G/50 ML BAG IV ONE ×2 (08:02→08:51)
[2022-04-09] MEDS: ENOXAPARIN 40 MG/0.4 ML SQ SCH (08:43)
[2022-04-09] MEDS: LOSARTAN POTASSIUM 50 MG TABLET PO SCH (08:53)
[2022-04-09] MEDS: DULOXETINE 30 MG CAP PO SCH ×2 (08:53→22:49)
[2022-04-09] MEDS ORDERED: DULOXETINE 30 MG CAP PO ONE (08:57)
[2022-04-09] MEDS ORDERED: LOSARTAN POTASSIUM 50 MG TABLET ONE (08:57)
[2022-04-09 11:26] LABS: Magnesium 1.9 mg/dL (1.8-2.4); Potassium 4.4 mmol/L (3.5-5.1)
[2022-04-09] MEDS ORDERED: HYDROMORPHONE HCL 1 MG/ML INJ IV ONE (12:17)
[2022-04-09] MEDS: HYDROMORPHONE HCL 2 MG/ML inj IV PRN ×2 (16:08→19:47)
[2022-04-09] MEDS: METOPROLOL TAR 50 MG TAB PO SCH (17:04)
[2022-04-10 00:21] LABS: Urine Appearance Clear (Clear); Urine Bilirubin Negative (Negative); Urine Blood Negative (Negative); Urine Color Yellow (Yellow); Urine Glucose 2+ (Negative); Urine Protein Trace (Negative); Urine Specific Gravity >=1.030 (1.005-1.030)
[2022-04-10 00:22] LABS: Urine Microscopic Reflex ORDER UMIC
[2022-04-10 00:53] LABS: Urine Amorphous Sediment 1+ /HPF (NONE SEEN); Urine Bacteria >50 /HPF (NONE SEEN); Urine Mucus 2+ /HPF (NONE SEEN); Urine RBC <5 /HPF (NONE SEEN)
[2022-04-10 00:54] LABS: Urine Sperm PRESENT (NONE SEEN)
[2022-04-10] MEDS: HYDROMORPHONE HCL 2 MG/ML inj IV PRN ×4 (03:17→23:18)
[2022-04-10] MEDS: ONDANSETRON 4 MG/2 ML VIAL IV PRN ×2 (03:18→17:32)
[2022-04-10] MEDS: NA CHLORIDE 0.9% 1,000 ML IV SCH ×3 (06:45→20:55)
[2022-04-10] MEDS: METOPROLOL TAR 50 MG TAB PO SCH ×2 (06:45→17:41)
[2022-04-10 06:59] LABS: Absolute Lymphocytes (CBC) 2.4 K/uL (0.7-4.9); Hematocrit 42.6 % (39.6-49.0); Lymphocytes % 23.6 % (15.3-44.8); MPV 9.1 fL (7.6-11.3); RBC Red Blood Cell Count 4.56 M/uL (4.33-5.43)
[2022-04-10 07:19] LABS: Albumin 2.8 g/dL (3.4-5.0); Bilirubin Total 0.8 mg/dL (0.2-1.0); Magnesium 1.6 mg/dL (1.8-2.4); Phosphorus 2.4 mg/dL (2.5-4.9); Potassium 4.8 mmol/L (3.5-5.1); Protein, Total 6.2 g/dL (6.4-8.2)
[2022-04-10] MEDS: INSULIN -REGULAR HUMAN 50 UNIT/0.5 ML ML SQ SCH ×4 (07:30→20:56)
[2022-04-10] MEDS: DULOXETINE 30 MG CAP PO SCH ×2 (09:07→20:56)
[2022-04-10] MEDS: LOSARTAN POTASSIUM 50 MG TABLET PO SCH (09:07)
[2022-04-10] MEDS: ENOXAPARIN 40 MG/0.4 ML SQ SCH (09:11)
[2022-04-11] MEDS: NA CHLORIDE 0.9% 1,000 ML IV SCH (04:30)
[2022-04-11] MEDS: METOPROLOL TAR 50 MG TAB PO SCH (05:55)
[2022-04-11] MEDS: HYDROMORPHONE HCL 2 MG/ML inj IV PRN (05:56)
[2022-04-11 06:13] LABS: Absolute Lymphocytes (CBC) 3.5 K/uL (0.7-4.9); Hematocrit 39.5 % (39.6-49.0); Lymphocytes % 33.5 % (15.3-44.8); MPV 9.4 fL (7.6-11.3); RBC Red Blood Cell Count 4.24 M/uL (4.33-5.43)
[2022-04-11] MEDS: INSULIN -REGULAR HUMAN 50 UNIT/0.5 ML ML SQ SCH ×2 (07:30→11:30)
[2022-04-11] MEDS: ENOXAPARIN 40 MG/0.4 ML SQ SCH (08:54)
[2022-04-11] MEDS: DULOXETINE 30 MG CAP PO SCH (08:54)
[2022-04-11] MEDS: LOSARTAN POTASSIUM 50 MG TABLET PO SCH (08:55)
[2022-04-11 09:21] VITALS: O2SAT 97
[2022-04-11 12:30] VITALS: BP 157/87; TEMP 97.8
[2022-04-11] MEDS ORDERED: HYDROCODONE/APAP 10/325 TAB PO ONE (12:47)
== END 2022-04-11 14:00 | disposition home or self-care (01) | DRG 439 ==
LOC: ER 14:26 → ERHOLD 21:30 → 2ND 04-09 12:10
PROVIDERS: ADMIT Hospitalist; ATTEND Hospitalist
DX: K85.90 Acute pancreatitis without necrosis or infection, unspecified (principal); N39.0 Urinary tract infection, site not specified; E11.65 Type 2 diabetes mellitus with hyperglycemia; I10 Essential (primary) hypertension; Z89.611 Acquired absence of right leg above knee; N40.0 Benign prostatic hyperplasia without lower urinary tract symptoms; Z96.652 Presence of left artificial knee joint; Z90.49 Acquired absence of other specified parts of digestive tract; Z20.822 Contact with and (suspected) exposure to COVID-19
CPT/HCPCS: 36415; 71045; 74177; 80048; 80053; 80061; 81003; 81015; 82947; 83036; 83605; 83690; 83735; 84100; 84443; 85025; 87086; 87088; 96374; 96375; 99284; C9113; J1170; J1650; J1815; J2270; J2405; J2543; J3475; J3490; J7030; J7040; Q9967; U0003

== ENCOUNTER 2022-07-18 01:46 | Observation (INO) | payer MEDICARE, OTHER ==
--- OUTSIDE RECORDS SUMMARY | 2022-07-18 01:48 | XMS REPORT | Clinical Summary ---
:1950 Author Organization [facility] MD [facility] Address [address] [place] [address] Care Team Providers Name Role Phone Spike Whyte MD Primary Care Provider Allergies Not on File Medications Not on file Active Problems Not on file Social History Tobacco Use Types Packs/Day Years Used Date Never Assessed Sex Assigned at Date Recorded Not on file Last Filed Vital Signs Not on file Plan of Treatment Health Maintenance Due Date Last Done Comments COVID-19 Vaccination (#1) 1950 Results Not on fileafter 07/18/2021 Insurance Payer Benefit Plan Subscriber ID Effective Phone Address Typ e / Group Dates MEDICARE MEDICARE PART [id number] 2009-Prese [phone] [facility] Medicare A AND B nt [id number] [employer] [address] [facility] [place] [phone] [employer] SENIOR AETNA SENIOR [id number] 2018-Pres [address] [employer] SUPPLEMENT SUPPLEMENT-SE ent [id number] [place] [address] Care Teams Mobile Service Rv Technician Relationship Specialty Start Date End Date Spike Whyte MD PCP - General Gastroenterology, 07/09/20 [address] [facility] [place] [address] (Zech)
--- OUTSIDE RECORDS SUMMARY | 2022-07-18 01:49 | XMS REPORT | Continuity of Care Document ---
:1950 Author Organization [facility] t Address [address] [place] [address] Dr. [address]. [address] [place] [address] Care Team Providers Name Role Phone DARREL SYED Primary Care Physician Unavailable Ruy Stock Attending Clinician Unavailable SYSTEM, PROVIDER NOT IN Attending Clinician Unavailable JULES MURPHY Attending Clinician Unavailable JULES MURPHY Attending Clinician Unavailable Jules Murphy MD Attending Clinician [phone] Carlos Boudreaux MD Attending Clinician [phone] Tumcarley_A Attending Clinician Unavailable Radha Attending Clinician Unavailable Jesus Townsend MD Attending Clinician DARREL SYED Attending Clinician Unavailable JULES MURPHY Admitting Clinician Unavailable Tumcarley_Ronna Admitting Clinician Unavailable Radha Admitting Clinician Unavailable Payers Payer Name Policy Type Policy Number Effective Date Expiration Date S dylon PPO/EPO - BCBS [id number] [email or web address] HEALTH [id number] [email or web address] HEALTH MGD [id number] 2021 [facility] 00:00:00 Pro[employer] [id number] 2021 (MEDICARE 00:00:00 REPLACEMENT HMO) MEDICARE PART A AND [id number] 2009 B 00:00:00 HENRIQUE [facility] [id number] 2018 SUPPLEMENT-SECONDAR 00:00:00 Y ONLY Problems This patient has no known problems. Allergies, Adverse Reactions, Alerts Allergy Allergy Status Severity Reaction(s) Onset Inactive Treating Comm ents Source Name Type Date Date Clinician SULFA Allergy Active Low Rash [facility] ([facility]: Medical ANTIBIOT 00 Center ICS) Sulfa Drug Active Rash [facility] (Sulfona Allergy [facility] 00:[facility]: Medical Antibiot 00 Center ics) Social History Social Habit Start Date Stop Date Quantity Comments Source Alcohol intake 2022-07-08 2022-07-08 Ex-drinker [facility]finding[facility] Center Exposure to 2022-06-27 2022-07-[address] [facility] SARS-CoV-2 00:00:00 10:27:00 [facility] Center (event) Tobacco use and 2022-06-11 2022-06-[address] [facility] Rehana kes exposure 00:00:00 00:00:00 [facility] Tobacco Comment 2022-06-11 2022-06-11 quit [address] [facility] 00[facility]00:00 00:00:00 [facility] Sex Assigned At [birth year] [facility] Smoking Status Start Date Stop Date Source [facility] consumption unknown Former smoker 2022-06-11 00:00:00 2022-06-[address] [facility] 00:[facility] Center Medications Ordered Filled Start Stop Current Ordering Indication Dosage Frequency Signature Comments Components Source Medication Medication Date Date Medication? Clinician (SIG) Name Name Missing or Yes QD daily [facility] Non-Formula 8-16 [facility] 16:01: cidar Medical Medication 16 vinegar Center 450 mg . Missing or Yes Krill Oil, [facility] Non-Formula 8-16 pt not [facility] ry 16:01: sure of Medical Medication 16 dose . Center docusate Yes 100mg Q.5D Take [address] sodium 8-16 mg by [facility] (COLACE) 16:01: mouth 2 Medica l 100 MG 16 (two) Center capsule times daily. metFORMIN 2021-0 Yes 1000mg Take 1,[address] (GLUCOPHAGE 8-16 mg by [facility] ) 1000 MG 16:01: mouth 2 Medic al tablet 16 (two) Center times daily with breakfast and dinner. pantoprazol 2021-0 Yes 40mg QD Take [address] e 8-16 by mouth [facility] (PROTONIX) 16:01: daily. Medic al 40 MG 16 Center tablet magnesium 2021-0 Yes 400mg QD Take [address] oxide 8-16 mg by [facility] (MAG-OX) 16:01: mouth Medical 400 mg 16 daily. Center (241.3 mg magnesium) tablet pancrelipas 2021-0 Yes [id number]{ Q.[id number] Take [facility] e, 8-16 lipase} [id number] 36,000 [facility] Lip-Prot-Am 16:01: 3D units of Me dical yl, (Creon) [address] 36,000-114, mouth 3 000- (three) 180,000 times unit CpDR daily 2 capsule capsules with meals and 1 capsule with snack . losartan 2021-0 Yes 25mg QD Take [address] (COZAAR) 25 8-16 by mouth Luke s MG tablet 16:01: nightly. Medi wesley 16 Center gabapentin 2021-0 Yes 300mg Q.[id number] Take [address] (NEURONTIN) 8-16 [id number] mg by L ukes 300 MG 16:01: 3D mouth 3 Medical capsule 16 (three) Center times daily. glipiZIDE 2021-0 Yes 10mg Take [address] (GLUCOTROL) 8-16 by mouth 2 Rehana kes 10 MG 16:01: (two) Medical tablet 16 times Center daily before meals. DULoxetine 2021-0 Yes 20mg QD Take [address] (CYMBALTA) 8-16 by mouth [facility] 20 MG 16:01: daily. Medical capsule 16 Center buPROPion 2021-0 Yes 150mg Q.5D Take [address] (WELLBUTRIN 8-16 mg by [facility]ukes SR) 150 MG 16:01: mouth 2 Medi wesley 12 hr 16 (two) Center tablet times daily. cinnamon 2021-0 Yes QD Take by [facility] bark-chromi 8-16 mouth [facility] um picolin 16:01: daily. Medic al 500-100 16 Center mg-mcg Cap metoprolol Yes 25mg Q.5D Take [address] tartrate 8-16 by mouth 2 [facility] (LOPRESSOR) 16:01: (two) Medic al 25 MG 16 times Center tablet daily. Vital Signs Vital Name Observation Time Observation Value Comments Source HEIGHT 2022-07-07 10:10:00 182.9 cm WEIGHT 2022-07-07 10:10:00 95.391 kg HEIGHT 2022-06-11 10:09:00 182.9 cm WEIGHT 2022-06-11 10:09:00 98.884 kg HEIGHT 2022-07-07 10:10:00 182.9 cm WEIGHT 2022-07-07 10:10:00 95.391 kg HEIGHT 2022-06-11 10:09:00 182.9 cm WEIGHT 2022-06-11 10:09:00 98.884 kg HEIGHT 2022-07-07 10:10:00 182.9 cm WEIGHT 2022-07-07 10:10:00 95.391 kg HEIGHT 2022-06-11 10:09:00 182.9 cm WEIGHT 2022-06-11 10:09:00 98.884 kg Systolic blood 2022-07-07 15:10:00 126 mm[Hg] [facility] Diastolic blood 2022-07-07 15:10:00 77 mm[Hg] [facility] Heart rate 2022-07-07 15:10:00 68 /min [facility] Body temperature 2022-07-07 15:10:00 36.39 Yris [facility] Respiratory rate 2022-07-07 15:10:00 16 /min [facility] Oxygen saturation in 2022-07-07 14:40:00 99 /min [facility] Arterial blood by Medical Ce nter Pulse oximetry Body height 2022-07-07 10:10:00 182.9 cm [facility] Body weight 2022-07-07 10:10:00 95.391 kg [facility] BMI 2022-07-07 10:10:00 28.52 kg/m2 [facility] Procedures Procedure Date / Time Performed Performing Clinician [facility] e REPORT OF PROCEDURE - 2022-07-10 16:40:00 Kietromana [facility] ENDOSCOPY URL [facility] TISSUE EXAM 2022-07-07 14:21:00 Otromana [facility] COLONOSCOPY 2022-07-07 12:43:00 [facility] COLONOSCOPY, WITH 2022-07-07 12:43:00 [facility] POCT-GLUCOSE METER 2022-07-07 11:03:00 [facility] kes Medical [facility] CT HEART SCAN W 2021-11-03 18:12:00 Jesus Townsend PHYSICIAN ORDER Plan of Care Planned Activity Planned Date Details Comments Source Future Scheduled 2032-07-[address] [facility] [facility] Test 00:00:00 [facility] (procedure) [code = 833860772] Future Scheduled 2032-07-[address] [facility] Test 00:00:00 [facility] (procedure) [code = 858473643] Future Scheduled 2022-07-23 INFLUENZA VACCINE (#1) [facility] Test 00:00:00 [code = INFLUENZA Medical Ce nter VACCINE (#1)] Future Scheduled 2022-07-15 HEPATITIS B VACCINES Met [facility] Test 02:16:51 (1 of 3 - 3-dose series) [code = HEPATITIS B VACCINES (1 of 3 - 3-dose series)] Future Scheduled 2022-07-15 65[facility]CCAL [facility] Test 02:16:51 VACCINE (1 - PCV) [code = 65+ PNEUMOCOCCAL VACCINE (1 - PCV)] Future Scheduled 2022-07-15 DIABETES: RETINAL EYE Me [facility] Test 02:16:51 EXAM [code = DIABETES: RETINAL EYE EXAM] Future Scheduled 2022-07-15 [facility] Test 02:16:51 [code = DIABETIC FOOT EXAM] Future Scheduled 2022-07-15 URINE [facility]BUMIN [facility] Test 02:16:51 [code = URINE MICROALBUMIN] Future Scheduled 2022-07-15 Hepatitis C screening [facility] Test 02:16:51 (procedure) [code = 836815655] Future Scheduled 2022-07-15 COLONOSCOPY SCREENING [facility] Test 02:16:51 [code = COLONOSCOPY SCREENING] Future Scheduled 2022-07-15 SHINGLES VACCINES (1 Met [facility] Test 02:16:51 of 2) [code = SHINGLES VACCINES (1 of 2)] Future Scheduled 2022-07-15 COVID-19 VACCINE (3 - Me [facility] Test 02:16:51 Booster for Marv series) [code = COVID-19 VACCINE (3 - Booster for Marv series)] Future Scheduled 2022-07-15 [facility]FLUENZA [facility]ACCINE [facility] Test 02:16:51 [code = INFLUENZA VACCINE] Future Scheduled 2022-05-27 COVID-19 [facility] 06:58:12 (#1) [code = COVID-19 MD [facility] Vaccination (#1)] Center Future Scheduled 2021-11-[address] [facility] Test 00:00:00 (12+) [code = Medical Center DEPRESSION SCREENING (12+)] Future Scheduled 2021-11-22 FALLS RISK SCREENING [facility] Test 00:00:00 [code = FALLS RISK Medical C enter SCREENING] Future Scheduled 2021-11-22 Medicare IPPE (WELCOME [facility] Test 00:00:00 TO MEDICARE) [code = Medical Center Medicare IPPE (WELCOME TO MEDICARE)] Future Scheduled [address] [facility] Test 00:00:00 aneurysm screening Medical C enter (procedure) [code = 690878381] Future Scheduled 2016 PNEUMOCOCCAL 65+ [facility] Test 00:00:00 (1 - PCV) [code = Medical Ce nter PNEUMOCOCCAL 65+ YRS (1 - PCV)] Future Scheduled 2001 SHINGLES VACCINES ([address] [facility] Test 00:00:00 of 2) [code = SHINGLES Medic al Center VACCINES (1 of 2)] Future Scheduled 1970 DTAP/TDAP/TD VACCINES [facility] Test 00:00:00 (1 - Tdap) [code = Medical C enter DTAP/TDAP/TD VACCINES (1 - Tdap)] Future Scheduled 1969 HEPATITIS C SCREENING [facility] Test 00:00:00 [code = HEPATITIS C Medical Center SCREENING] Future Scheduled 1950 COVID-19 VACCINE (#1) [facility] Test 00:00:00 [code = COVID-[address] VACCINE (#1)] Future Scheduled [address] Test 00:00:00 (combo) [code = CT Medical C enter Colonography (combo)] Future Scheduled [address] [facility] Test 00:00:00 malignant neoplasm of Medica l Center colon (procedure) [code = 470279507] Future Scheduled [address] [facility] Test 00:00:00 malignant neoplasm of Medica l Center colon (procedure) [code = 886798780] Future Scheduled 1950 Sigmoidoscopy [code = [facility] Test 00:00:00 S[facility]oidoscopy] [facility] Start End Encounter Admission Attending Care Care Encounter Source Date/Time Date/Time Type Type Clinicians Facility Department ID 2022-04-17 Outpatient Stock, STLMLC STLC [id number] Common 09:07:02 Ruy 45835 [facility] 2022-03-10 Outpatient Stock, STLMLC STLC [id number] Common 10:25:03 Ruy 10175 [facility] 2021-12-17 Outpatient Stock, STLMLC STLC [id number] Common 13:57:21 Ruy 56311 [facility] 2020-07-22 Outpatient SYSTEM, [facility] [id number] 10:27:39 PROVIDER Doe jeffers 2022-07-07 2022-07-13 Outpatient LILIAM MURPHY [id number] [facility] 16:56:58 16:59:34 JULES ramirez of Medicin e 2022-07-07 2022-07-07 Outpatient LILIAM RICKETTS [id number] [facility] 10:07:00 23:59:00 Radha ramirez of Medicin e 2022-07-07 2022-07-07 Outpatient IRMA MURPHY [facility] [id number] [facility] 10:07:00 15:55:00 [facility] 2022-07-07 2022-07-07 [facility] [id number] 10:07:00 15:55:00 Encounter [facility] Kiettanisha [facility] 2022-07-07 2022-07-07 Anesthesia Bunn, [facility] [id number] 12:53:00 14:39:[address] [facility] 2022-07-07 2022-07-07 Surgery [facility] [id number] 12:00:00 13:30:00 [facility] 2022-07-07 2022-07-07 Travel [facility] [id number] [facility] 00:00:00 00:00:00 [facility] 2022-06-11 2022-06-11 Outpatient EL SLE SLE [id number] [facility] 10:18:46 23:59:00 2022-06-11 2022-06-11 [facility] [id number] 08:50:00 23:59:00 Encounter [facility] 2022-06-11 2022-06-11 Travel [facility] [id number] [facility] 00:00:00 00:00:00 [facility] 2022-06-05 2022-06-05 Outpatient Tumelson_A DMG DM [id number] [facility] 07:10:00 07:10:00 0715 [facility] l [facility] 2022-05-12 2022-05-12 Outpatient Tumelson_A DMG DMG 4848 [facility] 02:59:00 02:59:00 0621 Medica l Group 2022-02-03 2022-02-03 Outpatient Johnson_J DMG THUY 09835 -2021 [facility] 01:00:00 01:00:00 0315 Medica l Group 2021-11-03 2021-11-03 [facility], 1.2.840.1 [id number] Methodi 10:58:26 23:59:00 Encounter Jesus 89787.1.1 126 s t 3.430.2.7 Hospit a .3.511961 l .8 2021-11-03 2021-11-03 Outpatient ATTAR, [facility] [id number] [place] 00:00:00 00:00:[address] 2021-11-03 2021-11-03 Travel 1.2.840.1 1.2.533.779 [id number] Methodi 00:00:00 00:00:[address] 3.430.2.7 0.2.7.3.698 Ho spita .3.275247 084.8 l .8 2021-10-21 2021-10-21 Travel 1.2.840.1 1.2.740.520 [id number] Methodi 00:00:00 00:00:[address] 3.430.2.7 0.2.7.3.698 Ho spita .3.414421 084.8 l .8 2021-10-21 2021-10-21 Transcribe Attar, .2.840.1 [id number] Methodi 00:00:00 00:00:00 Orders Jesus 19906.1.[address] 3.430.2.7 Hospit a .3.031735 l .8 2021-03-24 2021-03-24 [place] [address] -2020 [facility] 03:56:00 03:56:00 0503 Medica l Group 2020-07-18 2020-07-18 Outpatient GEDARREL MDA MDA [id number] 13:04:26 13:04:26 Doe o aury 2020-07-18 2020-07-18 Outpatient GE, DARREL ROBERT MDA [id number] 13:04:22 13:04:22 Doe o aury 2020-07-18 2020-07-18 Outpatient GE, DARREL ROBERT MDA [id number] 13:03:54 13:03:54 Doe o aury 2020-07-18 2020-07-18 Outpatient GE, DARREL ROBERT MDA [id number] [id number] 13:03:53 13:03:53 Doe o n 2020-07-18 2020-07-18 Outpatient GE, DARREL ROBERT MDA [id number] 13:03:52 13:03:52 Doe o n 2020-07-18 2020-07-18 Outpatient GE, DARREL ROBERT MDA 010 [id number] 13:03:51 13:03:51 Doe o n 2020-07-18 2020-07-18 Outpatient GE, DARREL ROBERT MDA [id number] 13:03:50 13:03:50 Doe o n 2020-07-11 2020-07-11 Outpatient EL GE, DARREL ROBERT MDA [id number] 00:00:00 00:00:00 Doe o n 2020-07-09 2020-07-09 Outpatient EL GE, DARREL ROBERT MDA 658 [id number] 15:17:45 15:17:45 Doe o n Results Test Description Test Time Test Comments Results Result Comments Source Tissue Exam 2022-07-10 16:39:00 Test Item Value Reference Range Interpretation Comme nts Case Report (test code = 104) Surgical Pathology Report Case: [id number] Authorizing Provider: Jules Murphy Collected: 07/07/2022 02:21 PM MD Tracy Ordering Location: [facility] Endoscopy Received: 07/07/2022 04:35 PM Services Pathologist: Idris Sanford MD Specimen: Polyp, Colon - Transverse, Removed by EMR DIAGNOSIS (test code = 3220) i9ejsTAuHFBxz4sbZECreAJmBhGuVhPcKqXvNr p cdWMxIHtccnRmMVxlcGljOTYwMlxhbnNpXHNwbH NeY5JzcqjwCPwxVS6kEQ7wuWbvjLHjmRBwEMBnO mPqk4mmp424fMCzy6wsKGBEdpuzhPr2jRwmE53u m9J2EirlL70pzWWkLIT0CDEoXBQauPMlFTEjVAB 8OEPjzGNvY6seITKsTO4obdzrCVrzNCavLAZvgY B5DOPapGRkY6LlQBLrMMlgGIVtsqn5TpQyTa0qk GVyeTcyMFxwYXJkXHBsYWluXGZzMjAgVFJBTlNW WFXTMTDOA8wTViuqPM8CQTGfUIBCFC7EU22YVLU jVZWLV0DHJCAQQHJHR9ZYV944OKGvgsnqbNjcZN zcfK71EoDkPMANWOHEYVWQUIIYXU3NKOMbXLBLB 9JROJTLORKUAAIWM53HJXPFWeUEFPuaKXRlD99x iKDefJdpiEMyTA0sKRQOKVZBCBFVGB6sZADmPkH JOUESIvEpBg5VIMAYP8OFVPLBRHrkEVT0j2effF YxXHNzdGUxODAwMFxhbnNpXGRlZmxhbmcxMDMzX TZ2jaIiOLMsFUcxRGBuVOsyZf8bmZDpdRahCvZm DFTzf3apxyTKjpcyrUj0k6ruRAIoWlJ1wXLhLDi kO8cqjyDjiXJfVGFyMMj7lP79YRTtdY0hwYSrHL izzhOkAoK2PJnrAWMwTgC4XSOvwOWzZHRrR5ckP DIhODebOTFhDBtpvVFeBUC0rKmfz4Z6uEHzqXUc kEzuTvXnWeEgXnZQf3KoQVq1yPwlO8ReVWZpRkT 9qMXsXCLoCTcjTUVsFCLkokN4fX60DTrpgdI0gG Rjo3Sti07md895dO1vbIUhUCS4KQCkXQBfjRAiD NHgRDQ6CULvkSVjG4ziJFHwKT5qqlypTYsqVGcc CHPluPG4LOCdrFHcP5WvTTDlZDzbAQFulzs3PfP yGt5izWEkbRoqWAgnu0lzn2eypYUlTvy8STKiQa YvQrcdVPtti0Iiz3ocYWEupm5nKUU4pHAavNisc 7Z4bXLbIQPnfMXfCHFsZU6ftIDiIQCkqD7pmguh GYVbNqVbetnmDDJotAuxjbUhLt1jxYnoUCI8HNw hP0suyU5bWyC2SSypJ5tgqB8tJBz1FDlxKVIjjG S5ooG8ODVfeJJaS1MszH1zDAIdBO5spsg3t0yiV BB0FDvyOCZnDwE1otX8CKVlmHEgNQTrjBjfSWkg n014UVR7VaHaLIWub3NfQ2JdgJrtA75ljHmxZ08 xSZYfbKeqqL8kfUsxmW8cQwDyFaDiKWouvRltQM 3aTQHgN6mqdXExYAExLKEwV2ycSgQhoA4iiFriZ NlqwiYwUWGeIgx4SCPxzZZyUPJhKtc1DHBoAFLs C18ejktkZLX9pL9yr5xoj5ZtXEhfODB7IKOkq29 nHEwdzaV9BVduQy28JWwiEEC0BHatDHK1yK== COMMENT (test code = 3359) e9bohCNcVQXgnXW5UzHmDJMzd4xox1KjmNKejHQ rFNrxvHVgwxOmif47gGC3gX28AR5vVRCpFzO5AV EfzyN3Kop7SKRcXUUrxYFgN861t5dce5vtwsQyo FV0aUxxPAArogznHlD7WYqjXHBlarxgIPw7NDal XXMlvMA2ZDBopBJaU6WoYWWyJT8dmzv8ELN4AAb jVENgGrP7OLMvwFAaPLRtxGhxOOmsc162JPY3Lo FaTNPapmBulYfihU2sWpOmHZBLsEHliSXym4Xnv P3wEFTgbThfleRnLF9ysrlxhxHreXN3rDGgL4Tf mr88YUAaUILgx9Ejx9AgAZV8UES2buHsonMpyUA hxUBvMA6kjKFtMQXsAiP0vWXqs6IrC2dnBY6fCU 6wP6Q5eHZpSARbixFuiQqkOQbqABLsAKS7u0BhJ CRhAM9qOf1mi0XwoyZrvWFnlTloRX2fhTSewfPd viDbx9g1IZOlSYEqw5PxgwBsgm1aHARbrzOkQQI jAgTNq18oVKCyRNG4zpIrUQ0xKB31K03yLCloeE SgyWUjm7MqJVX7htXhVTbfAnVlAhUheDKsjTgjm kzkMO41J69oEVGdKBLnJRFkaKMdAJKnhHWeO1il dGVkLlxwYXJccGFyIElOVFJBREVQQVJUTUVOVEF SBCRKCeDJGRA6BLTeHlMDGPBjSVv6OF7ACRCqUM AGnc5nPTC7lVTlCFTajnYctuHaTOPRZBgwNQS3 CPT Code(s) (test code = 0567) z8makXUnHZKqkOM0VbKpZTAdd8mps5JzgJRg cGF gRMyjoLZhcaAkuo09wRF8vO40XR1bHQSxGfU4BY FgrlB1Yke2OCMlSRRhuMJjV506y4uii9uinlNqv JM9pSjmAOKaryzaWbC0GBmxHJRvsiylWKq8KVmu FVJloCA4XRPhiJAeI7CpPPQeJA2gwjk2IFS1NCg zHIRzBbN6WATyqOJpAEOidWbpVFhrt627GLI9Uy BiYDJistOzeHabeL4nTuCfGHO8RFJuW9kqIYI2 CLINICAL HISTORY (test code = 3356) o1hvfOMrNUGhiGV2DlFqOZUgn0fya6T sdHBncGF kMNpkqNVempAnlf39uMH2tG99YZ6iHQFfQcA4UA MtuoS7Utx4ZSAuAIRvsIXsX158y9dya7mtiqDnq HG1RZBpGYQrU3QaEA0pAENxuQArQ23rlGWoPHO8 IFJpAALjtQNzORZcEDQ2OEYafSZrH2uwDVFsOG2 ftbmzKQomEBaoMNIegBR7EPPtyJGxJ2BcBTFxCH esDHTolqd9IhJvNa1ejPAcxVpyYPgsJYGuOKErL PdcaSRgxduabaEsPIBtOABGgIS1hGOpCNEjVF0u qLXpi7ReG77mc99odQHlzG== GROSS DESCRIPTION (test code = m2mrgOIkSRUevSDLFOIzT0gwmwNkNADjyGAu Z [id number]) jekdvNGhgDZ5mWZ6dtYhvyIZtzBFzHY7ICWPlHu ZlDXRdlRGmcgQyBkKiAXPeeGBjhCO6GMYoOC0ox uiaRMucDDdtGBGwybZ3RHJesKUlV2JoNINzCX6x efbqJEC4YOdxpT2bggSGUabhEm7jhPAqrHybYiX zTuYzLBVxRZAbJWTzyTgyTVUyOJa5hK9YYveuU7 2mm8B9Xyq9WSObBQKuV0MaQT9lACOloCTyE17QF sgkQTS7QVXAXtgzCILlCD5No1lvEYWvvMDkUFA4 OYlfcSYnANOlOVXiSJt9HIRlYRpgyLYjJZ6bjDp aLlkzdTjmk6CpaBCsTUvvZESoBFZeWOgtLHVgHR 8NCjCuALLvLeJbMCMkQHo1CJw0EZ7NTfDzJNArK MqeGpDaRDLjCZl3IPseZJ7YWPLrNoYaVbGgOVP8 PNO9AMUkZTZpUyJgNUDgEHChYZbnMSljpBMrTL7 pkBruaFBaoaLNJhFFv4g9xUgfO41zd13fUDYSmx Ctv7IzdmJhKjziMMFcPFbqFEZqU12ti7BUc5KdW H1RBSq6mkIynsxsxN6eKFInpuRxXWehsJQdX2kk L9NwUJCmQrQeIhIrZGa2CWMjlG3jIk0bsAOaoK1 zvQImCNdrNEA4iVGkHZXpRFIdZMRiEP42QEhOYR MgbmFtZSwgbWVkaWNhbCByZWNvcmQgbnVtYmVyI OLbYNSwgPkjDeJfRXn8Z1IoCI8igcZpp1MyP51k h33gbC4wcWEuYQywGPZsCs02IDgvRO09FEsbKV9 8IQTsUTPvB8WdQ9I5JIBfVeV6HN5kkNcfrbhsiE 0gcUQzlUNwy67emWZ7uZGnjNEsBCFAdBSgeO8vq XhhNKUyLQtgOL98CNBvnkS3bRUtWI1qUIGiVQXc eVEvoX1fmgoluAvuXYVsVIadbZMtWCVzbK2yS8B liw10HFHcDZXvs8Rfu1CuGqVkCQxgWOvqUV48vG PfCIMdJXFrDKDzYY3lpfmgakDeqsDngbjfVMBci GFjayBhbmQgdGhlIHNwZWNpbWVuIGlzIGVudGly DPp3VAW0Nf2opARqWFTsnwTlq5gmj1ebPqesmA4 xSUbloH8gCRSsS9Onb37eF31gIZexpV3pRTMzCs PLyMz5nDZhSWSimMWufNHtWXRbXHuuKB08s4swm Z9fTCMwFKDtRsEtQMSqYOqrHP40VIMnTZGrHIlh kMUkLKR7yE7uVLBkgFxuOIXYIHfkLVZszcCmxHN plPjeAmxdQUS0RZBiwQspZJJEBBxuPNDnxfCfqZ DwqNhoMsoxRUT6BGAkmTCtAO5FQQNqjyQBYnZkd ZXzBMPtM8QewHswyiouQYLgOVuDGHjIP8TBOSjf ERAwOUybP4ZtIAJrZgYhIRplkLnewU6lOJXeV21 qu5MCa7AzZCOtUWfpp4qnfRsco0BsuFPmEHrkPM TzxFGmFNyvqS1rZxLfv0xbxDx8SCjfyyD6VSPuq g1IJhhhrI5lQsGxo9rhqOz0QQMXIvdzpdJ4n4cb bXjed1DdpYGqKE7RVq2= MICROSCOPIC DESCRIPTION (test code = y8ejgRJwHLDumAO1WzZxQQDvy5tnw1 [facility] [place] [facility] [place] [facility] kLKitxSCvjbUfdy03dUN7qF19ES1eOSGbUvV0HQ FzlzK6Uvi5LFGbFNVknTGvJ898s7fib6ohwlQnl ST5eFmjVIWrmcvjMoN7RPikWAOiujubYRd0SRmb BCPedDU0KYArfIUzK0TkHQAsFF2kfjh6ORK9HTz zNFSnQeL1HJGspWAvBEXrrUjeIZjwh980TQQ2Wv QiIIEcgaOavDsauN0bMoIpDBDYPNVgs9JtEYHxE HBhclxwYXJkXHBhcn0= Gross assessment was performed at (test [facility] enter, code = 2777) Department of Pathology, [address] [place] [address] [place] [address], Technical component was performed at [facility] er, (test code = 2778) Department of Pathology, [address] [place] [address], Professional component was performed at [facility] mervin, (test code = 2779) Department of Pathology, [address] [place] [address], [facility] CenterTISSUE [id number] 16:39:00Surgical Pathology Report Case: [id number] Authorizing Provider: Jules Murphy Collected: 07/07/2022 02:21 PM MD Tracy Ordering Location: [facility] Endoscopy Received: 07/07/2022 04:35 PM Services Pathologist: Idris Sanford MD Specimen: Polyp, Colon - Transverse, Removed by EMR TRANSVERSE COLON, POLYP, ENDOSCOPIC MUCOSAL RESECTION:- TUBULAR ADENOMA PRESENT AT TATTOOED AREA (see comment)- DEEP MARGIN IS NEGATIVE FOR DYSPLASIA Signing Pathologist Direct Phone Line: [phone] by Idris Sanford MD on 07/10/2022 at 4:39 PMThe mucosal/peripheral margin status cannot be assessed due to fragmented nature of the specimen. Negative for high grade dysplasia. No overt malignancy or invasive adenocarcinoma is seen. Some features of mucosal prolapse (stranding of muscularis mucosae) are also appreciated.INTRADEPARTMENTAL CONSULT: Dr. Ryan Kimball MD and Dr. Doug Salvador [id number] adenoma of colonA. Polyp, Colon - Transverse.Received in formalin labeled with the patient's name, medical record number and "transverse colon polyp" is a 2.5 x 1.7 x 0.9 cm aggregate of cotto-pink, polypoid soft tissue. Due to the fragmented nature of the specimen, the radial margin cannot be assessed. The identifiable deep margin is inked black and the specimen is entirely submitted as follows:Section codeA1: Multiple smaller fragmentsA2-A3: 1 fragment, serially sectionedA4: 1 fragment, bisecte dA5: 1 fragment, bisectedPilar SOLANGE Blanchard HT (ASCP)Performed [facility], Department of Pathology, [address] [place] [address], [facility], Department of [facility]ology, [address] [place] [address], [facility], Department of Pathology, [address] [place] [address], USN-Glucose [id number] 11:15:21 Test Item Value Reference Range Interpretation Comments POC-Glucose Meter (test 136 mg/dL 70-110 H : TE STED AT [facility] code = 1538) [address] [place] [address], 770 30: Electronic Pagination System Operator/Techni tutu ID = [id number] for Flora Colon Lab Interpretation (test Abnormal code = 41087-1) [facility] CenterPOCT-GLUCOSE [id number] 11:15:21 Test Item Value Reference Range Interpretation Comments POC-GLUCOSE METER 136 mg/dL 70-110 H : TESTED [place] [address] (BEAKER) (test code = ZAK Wilder [facility], 1538) [address]: Electronic Pagination System Operator/Techni tutu ID = [id number] for Flora Ramos
[2022-07-18 02:09] LABS: Urine Blood Negative (Negative); Urine Glucose 2+ (Negative); Urine Protein Negative (Negative); Urine Specific Gravity 1.025 (1.005-1.030); Urine pH 5.5 (5.0-7.0)
[2022-07-18 03:22] LABS: Absolute Lymphocytes (CBC) 3.7 K/uL (0.7-4.9); Hematocrit 41.3 % (39.6-49.0); Lymphocytes % 35.1 % (15.3-44.8); MCV 92.9 fL (80-100); MPV 8.1 fL (7.6-11.3); RBC Red Blood Cell Count 4.44 M/uL (4.33-5.43)
[2022-07-18 08:30] LABS: Potassium 3.8 mmol/L (3.5-5.1); Troponin High Sensitivity 5.1 pg/mL (<58.9)
--- NOTE | 2022-07-18 08:42 | ER ---
Nurse's Notes [facility] Name: Anish Leon Age: 72 yrs Sex: Male : 1950 Arrival Date: 07/18/2022 Time: 01:51 Bed 20 Private MD: Diagnosis: Altered mental status, unspecified;Pneumonia, unspecified organism;Dehydration Presentation: 07/18 02:16 Chief complaint: Spouse and/or significant other states: "intermittent bouts of fu confusion for couple of days, troubled and pain on urination". Coronavirus screen: Vaccine status: Patient reports receiving the 2nd dose of the covid vaccine. Ebola Screen: No symptoms or risks identified at this time. Initial Sepsis Screen: Does the patient meet any 2 criteria? No. Patient's initial sepsis screen is negative. Does the patient have a suspected source of infection? No. Patient's initial sepsis screen is negative. Risk Assessment: Do you want to hurt yourself or someone else? Patient reports no desire to harm self or others. Onset of symptoms was July 15, 2022. 02:16 Method Of Arrival: Wheelchair fu 02:16 Acuity: DESHAWN 3 fu Historical: - Allergies: 02:21 Sulfa (Sulfonamide Antibiotics); fu - PMHx: 02:21 Diabetes - NIDDM; Pancreatitis; intestinal obstruction; Diverticulitis; MRSA; fu - PSHx: 02:21 colon resection; left knee; right AKA; Splenectomy; fu - Immunization history:: Client reports receiving the Kofi \\T\\ Kofi single-dose vaccine. - Social history:: Smoking status: Patient denies any tobacco usage or history of. Screenin:25 Abuse screen: Denies threats or abuse. Nutritional screening: No deficits noted. fu Tuberculosis screening: No symptoms or risk factors identified. Fall Risk None identified. Assessment: 02:25 General: Appears in no apparent distress. Pain: Complains of pain in abdomen Pain does fu not radiate. Pain currently is 5 out of 10 on a pain scale. Neuro: Level of Consciousness is awake, alert, obeys commands, Oriented to person, place, time, situation, Speech is normal, Facial symmetry appears normal. Respiratory: Respiratory effort is even, unlabored, Respiratory pattern is regular. GI: Reports abdominal pain. : Reports pain on urination. 09:03 Reassessment: attempting to draw blood cultures, pt very hard stick and lab is at [facility] bedside at this time. antibiotics prepared. 10:00 Reassessment: No changes from previously documented assessment. was able start [facility] ultrasound IV to rt upper arm and one set of blood cultures sent. pt alert and oriented at this time and has no complaints when asked. 10:00 Pain: Denies pain. [facility] Vital Signs: 02:16 BP 134 / 92; Pulse 66; Resp 18; Temp 98.1(O); Pulse Ox 96% on R/A; Pain 5/10; fu 03:15 BP 141 / 90; Pulse 62; Resp 15; Pulse Ox 100% on R/A; Pain 5/10; fu 05:06 BP 155 / 100; Pulse 62; Resp 16; Pulse Ox 98% on R/A; Pain 0/10; fu 05:30 BP 155 / 100; Pulse 62; Resp 16; Pulse Ox 98% ; fu 07:30 BP 152 / 87; Pulse 68; Resp 17; Temp 98.3(O); Pulse Ox 95% ; Pain 0/10; jh6 09:30 BP 148 / 90; Pulse 66; Resp 17; Pulse Ox 98% ; Pain 0/10; 6 ED Course: 01:51 Patient arrived in ED. ja2 01:58 Jamel Almazan, AMANDO is Primary Nurse. fu 02:05 Adelfo Moss DO is Attending Physician. ms3 02:09 Urine collected: clean catch specimen, cloudy. mh5 02:09 Patient has correct armband on for positive identification. Bed in low position. Call [facility] light in reach. Side rails up X2. Adult w/ patient. Warm blanket given. Pulse ox on. NIBP on. 02:21 Triage completed. fu 03:10 Inserted saline lock: 22 gauge in left hand, using aseptic technique. Blood collected. fu 03:13 Troponin HS Sent. fu 03:13 CBC with Diff Sent. fu 03:13 Basic Metabolic Panel Sent. fu 03:22 XRAY Chest (1 view) In Process Unspecified. EDMS 03:49 CT Head Brain wo Cont In Process Unspecified. EDMS 07:56 Attending Physician role handed off by Adelfo Moss DO ms3 07:56 Pete Dickinson MD is Attending Physician. ms3 08:41 Mike Magaña is Hospitalizing Provider. rn 21:14 No provider procedures requiring assistance completed. Patient admitted, IV remains in [address] intact, No redness/swelling at site. 21:15 Arm band placed on right wrist. ha Administered Medications: 09:50 Drug: Rocephin (cefTRIAXone) 1 grams Route: IV; Rate: calculated rate; Site: right [facility] antecubital; 10:17 Follow up: Response: No adverse reaction; IV Status: Completed infusion [facility] 10:16 Drug: Zithromax (azithromycin) 500 mg Route: IVPB; Infused Over: 1 hrs; Site: right [facility] antecubital; Medication: 21:15 VIS not applicable for this client. [facility] Outcome: 08:42 Decision to Hospitalize by Provider. rn 21:14 Admitted to Med/surg accompanied by tech, via stretcher, room 402, [address] 21:14 Condition: stable 21:14 Instructed on the need for admit, Demonstrated understanding of instructions. 21:34 Patient left the ED. lg3 Signatures: Dispatcher [employer] EDMS Pete Dickinson MD MD rn Martinez, Maria [facility] Jamel Almazan RN RN fu Gibson, Lacie, RN RN lg3 Adelfo Moss DO DO ms3 Brittany Isabel2 Swapna Acuña RN RN 6 Li Tapia RN RN [facility] Corrections: (The following items were deleted from the chart) 02:24 02:21 PMHx: Hypertension; fu fu 02:24 02:21 PMHx: prostate problems; fu fu 02:24 02:21 PMHx: neuron pain; fu fu
--- NOTE | 2022-07-18 08:42 | EDPHYS ---
Physician Documentation [facility] Name: Anish Leon Age: 72 yrs Sex: Male : 1950 Arrival Date: 07/18/2022 Time: 01:51 Bed 20 Private MD: ED Physician Pete Dickinson HPI: 07/18 03:50 This 72 yrs old Male presents to ER via Wheelchair with complaints of Urinary Problem, ms3 Confusion. 03:50 The patient presents with confusion. Onset: The symptoms/episode began/occurred ms3 acutely, 5 day(s) ago. Possible causes: Difficulty urinating. Associated signs and symptoms: The patient has no apparent associated signs or symptoms. Current symptoms: In the emergency department the patient's symptoms are unchanged from the initial presentation. Patient's baseline: Neuro: alert and fully oriented, Motor: no deficits, Ambulation: walks without assistance, Speech: normal. Historical: - Allergies: 02:21 Sulfa (Sulfonamide Antibiotics); fu - PMHx: 02:21 Diabetes - NIDDM; Pancreatitis; intestinal obstruction; Diverticulitis; MRSA; fu - PSHx: 02:21 colon resection; left knee; right AKA; Splenectomy; fu - Immunization history:: Client reports receiving the Kofi \T\ Kofi single-dose vaccine. - Social history:: Smoking status: Patient denies any tobacco usage or history of. ROS: 03:50 Constitutional: Negative for fever, and chills. Neck: Negative for injury, pain, and ms3 swelling, Cardiovascular: Negative for chest pain, and palpitations. Respiratory: Negative for shortness of breath, cough, wheezing, and pleuritic chest pain, Abdomen/GI: Negative for abdominal pain, nausea, vomiting, diarrhea, and constipation, MS/Extremity: Negative for injury and deformity, Skin: Negative for injury, rash, and discoloration. 03:50 Neuro: Positive for altered mental status. 03:50 All other systems are negative. Exam: 03:50 Constitutional: This is a well developed, well nourished patient who is awake, alert, ms3 and in no acute distress. Head/Face: Normocephalic, atraumatic. Neck: Trachea midline, no cervical lymphadenopathy. Supple, full range of motion without nuchal rigidity, or vertebral point tenderness. No Meningismus. Chest/axilla: Normal chest wall appearance and motion. Nontender with no deformity. Cardiovascular: Regular rate and rhythm with a normal S1 and S2. No gallops, murmurs, or rubs. Normal PMI, no JVD. No pulse deficits. Respiratory: Lungs have equal breath sounds bilaterally, clear to auscultation and percussion. No rales, rhonchi or wheezes noted. No increased work of breathing, no retractions or nasal flaring. Abdomen/GI: Soft, non-tender, with normal bowel sounds. No distension or tympany. No guarding or rebound. No evidence of tenderness throughout. Skin: Warm, dry with normal turgor. Normal color with no rashes, no lesions, and no evidence of cellulitis. MS/ Extremity: Pulses equal, no cyanosis. Neurovascular intact. Full, normal range of motion. Neuro: Awake and alert, GCS 15, oriented to person, place, time, and situation. Cranial nerves II-XII grossly intact. Motor strength 5/5 in all extremities. Sensory grossly intact. Cerebellar exam normal. Normal gait. Psych: Awake, alert, with orientation to person, place and time. Behavior, mood, and affect are within normal limits. 03:50 ECG was reviewed by the Attending Physician. Vital Signs: 02:16 BP 134 / 92; Pulse 66; Resp 18; Temp 98.1(O); Pulse Ox 96% on R/A; Pain 5/10; fu 03:15 BP 141 / 90; Pulse 62; Resp 15; Pulse Ox 100% on R/A; Pain 5/10; fu 05:06 BP 155 / 100; Pulse 62; Resp 16; Pulse Ox 98% on R/A; Pain 0/10; fu 05:30 BP 155 / 100; Pulse 62; Resp 16; Pulse Ox 98% ; fu 07:30 BP 152 / 87; Pulse 68; Resp 17; Temp 98.3(O); Pulse Ox 95% ; Pain 0/10; jh6 09:30 BP 148 / 90; Pulse 66; Resp 17; Pulse Ox 98% ; Pain 0/10; jh6 MDM: 02:34 Patient medically screened. ms3 03:50 Differential Diagnosis: electrolyte abnormality, pneumonia, UTI. Data reviewed: vital ms3 signs, nurses notes, lab test result(s), EKG, radiologic studies. Counseling: I had a detailed discussion with the patient and/or guardian regarding:. 07:57 Transition of care: After a detail discussion of the patient's case, care is ms3 transferred to Pete Dickinson MD. 08:40 ED course: Pt describing delirium, cxr shows possible pneumonia left lung base, reports rn dry cough, urine dip negative, will admit for AMS, delirium and possible pneumonia.. 07/18 02:10 Order name: Urine Dipstick-Ancillary; Complete Time: 02:10 EDMS 07/18 02:31 Order name: Glucose, Ancillary Testing; Complete Time: 02:36 EDMS 07/18 02:37 Order name: Basic Metabolic Panel; Complete Time: 09:10 ms3 07/18 02:37 Order name: CBC with Diff; Complete Time: 05:14 ms3 07/18 02:37 Order name: Troponin HS; Complete Time: 09:10 ms3 07/18 04:35 Order name: Thyroid Stimulat Hormone; Complete Time: 09:10 ms3 07/18 02:37 Order name: XRAY Chest (1 view) ms3 07/18 02:37 Order name: CT Head Brain wo Cont ms3 07/18 08:25 Order name: Urine Microscopic Only rn 07/18 08:27 Order name: SARS RAPID; Complete Time: 09:10 rn 07/18 08:27 Order name: Blood Culture Adult (2) rn 07/18 17:44 Order name: Glucose, Ancillary Testing EDMS 07/18 02:37 Order name: EKG; Complete Time: 02:38 ms3 07/18 02:37 Order name: Cardiac monitoring; Complete Time: 03:13 ms3 07/18 02:37 Order name: EKG - Nurse/Tech; Complete Time: 03:51 ms3 07/18 02:37 Order name: IV Saline Lock; Complete Time: 03:13 ms3 07/18 02:37 Order name: Labs collected and sent; Complete Time: 03:13 ms3 07/18 02:37 Order name: O2 Per Protocol; Complete Time: 03:13 ms3 07/18 02:37 Order name: O2 Sat Monitoring; Complete Time: 03:13 ms3 EC:50 Rate is 61 beats/min. Rhythm is regular. QRS [place] is Normal. OR interval is normal. QRS ms3 interval is normal. Clinical impression: NSR w/ Non-specific ST/T Changes. Interpreted by me. Reviewed by me. Administered Medications: 09:50 Drug: Rocephin (cefTRIAXone) 1 grams Route: IV; Rate: calculated rate; [facility]; 10:17 Follow up: Response: No adverse reaction; IV Status: Completed infusion [facility] 10:16 Drug: Zithromax (azithromycin) 500 mg Route: IVPB; Infused Over: 1 hrs; Site: right [facility] antecubital; Disposition Summary: 07/18/22 08:42 Hospitalization Ordered Hospitalization Status: Observation rn Provider: Mike Magaña rn Condition: Stable rn Problem: new rn Symptoms: have improved rn Bed/Room Type: Standard rn Location: Telemetry/MedSurg (observation)(07/18/22 19:40) Room Assignment: [facility](07/18/22 19:40) Diagnosis - Altered mental status, unspecified rn - Pneumonia, unspecified organism rn - Dehydration rn Forms: - Medication Reconciliation Form rn - SBAR form rn Signatures: Dispatcher [employer] EDMS Fozia Magallon RN RN Pete Dickinson MD MD rn Smirch, Shelby, RN RN Jamel Almazan RN RN Adelfo Moss DO DO ms3 Swapna Acuña RN RN [facility] Corrections: (The following items were deleted from the chart) 02:24 02:21 PMHx: Hypertension; fu fu 02:24 02:21 PMHx: prostate problems; fu fu 02:24 02:21 PMHx: neuron pain; fu fu 17:44 08:42 Telemetry/MedSurg (observation) rn ss 17:44 08:42 rn ss 19:40 17:44 [facility] ER HOLD ss mw 19:40 17:44 ERHOLD- ss
[2022-07-18] MEDS: CEFTRIAXONE 1,000 MG in NA CHLORIDE 0.9% 50 ML IVPB SCH (09:00)
[2022-07-18] MEDS: AZITHROMYCIN IV 500 MG in NA CHLORIDE 0.9% 250 ML IVPB SCH (09:00)
[2022-07-18 09:01] LABS: SARS-CoV-2 Antigen Rapid Res Negative (Negative)
[2022-07-18] MEDS ORDERED: CEFTRIAXONE 1000 MG/VIAL ONE (09:54)
[2022-07-18] MEDS ORDERED: NA CHLORIDE 0.9% 100 ML ONE (09:54)
[2022-07-18] MEDS ORDERED: NA CHLORIDE 0.9% 250 ML ONE (09:54)
[2022-07-18] MEDS ORDERED: AZITHROMYCIN 500 MG INJ IVPB ONE (09:54)
--- NOTE | 2022-07-18 11:46 | P.HP ---
Certification for Inpatient Patient admitted to: Observation With expected LOS: <2 Midnights Practitioner: I am a practitioner with admitting privileges, knowledge of patient current condition, hospital course, and medical plan of care. Services: Services provided to patient in accordance with Admission requirements found in Title 42 Section 412.3 of the Code of Federal Regulations Patient History Date of Service: 07/18/22 Reason for admission: Confusion History of Present Illness: 72-year-old gentleman with a history of medical problems including diabetes mellitus and hypertension presented to the emergency department accompanied by his spouse due to confusion of about 2 days duration. Patient denied any fever or chills. He endorsed dysuria but no urinary frequency. He denied any cough or shortness of breath. Work-up in the emergency department unremarkable except chest x-ray demonstrating possible right small pleural effusion and hazy opacity in the left lower lobe. UA did not suggest UTI. Delirium suspected. Patient is hospitalized for further management. Allergies sertraline [From Zoloft] Allergy (Verified 06/06/20 02:10) Hives/Rash Home Medications: Bupropion HCl [Wellbutrin Xl] 300 mg PO DAILY 04/09/22 Glipizide [Glipizide ER] 10 mg PO BID 04/09/22 Losartan Potassium 25 mg PO BEDTIME 04/09/22 Metformin HCl [Metformin HCl ER] 750 mg PO BID 04/09/22 Metoprolol Tartrate 50 mg PO DAILY 04/09/22 Hydrocodone/Acetaminophen [Hydrocodon-Acetaminophn 10-325] 1 each PO Q6HP PRN #30 tablet 04/11/22 - Past Medical/Surgical History Diabetic: Yes -: HTN -: Diabetes mellitus -: neuropathy -: arthritis -: neuropathy -: Pancreatitis -: BPH -: cholecystectomy -: spleenectomy -: lumbar surgery -: left knee replacement -: 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 -: appendectomy -: hemorrhoid surgery -: colectomy Psychosocial/ Personal History: Patient lives at home with his family - Family History Mother -: Heart disease Father -: Lung disease, Liver disease grandfather -: Other (see notes) Notes: liver cirrhosis - Social History Alcohol use: No CD- Drugs: No Caffeine use: No Review of Systems Other: Except as documented, all other systems reviewed and negative. Physical Examination - Physical Exam General: Alert, In no apparent distress, Oriented x3 HEENT: Normocephalic, PERRLA, Mucous membr. moist/pink, EOMI, Sclerae nonicteric Neck: Supple, JVD not distended Respiratory: Clear to auscultation bilaterally, Normal air movement Cardiovascular: No edema, Regular rate/rhythm, Normal S1 S2, No murmurs Capillary refill: <2 Seconds Gastrointestinal: Normal bowel sounds, Soft and benign, Non-distended, No tenderness Musculoskeletal: No swelling, No tenderness, Other (Right AKA) Integumentary: No rashes, No erythema Neurological: Normal strength at 5/5 x4 extr, Cranial nerves 3-12 intact Lymphatics: No axilla or inguinal lymphadenopathy - Studies Laboratory Data (last 24 hrs) 07/18/22 07:55: Sodium 139, Potassium 3.8, BUN 12, Creatinine 0.72, Glucose 143 H 07/18/22 03:10: WBC 10.50, Hgb 13.9, Hct 41.3, Plt Count 449 H Assessment and Plan - Problems (Diagnosis) (1) Acute metabolic encephalopathy Current Visit: Yes Status: Acute (2) Pneumonia Current Visit: Yes Status: Acute (3) Diabetes mellitus Current Visit: No Status: Chronic Qualifiers: Diabetes mellitus type: type 2 Diabetes mellitus termite helper insulin use: without termite helper use Diabetes mellitus complication status: with hyperglycemia Qualified Code(s): E11.65 - Type 2 diabetes mellitus with hyperglycemia (4) Hypertension Current Visit: No Status: Chronic Qualifiers: Hypertension type: primary hypertension Qualified Code(s): I10 - Essential (primary) hypertension - Plan Placed under observation on the medical floor. Start IV antibiotic-Rocephin and Zithromax for possible pneumonia and UTI. Follow cultures. Hydrate with IV normal saline. We will reconcile and continue other home medications. Insulin sliding scale for glucose management. Continue metformin. - Advance Directives Does patient have a Living Will: No Does patient have a Durable POA for Healthcare: No
[2022-07-18] MEDS: NA CHLORIDE 0.9% 1,000 ML IV SCH ×2 (12:06→22:02)
[2022-07-18] MEDS ORDERED: ONDANSETRON 4 MG/2 ML VIAL IV PRN (12:06)
[2022-07-18] MEDS ORDERED: ACETAMINOPHEN 500 MG TAB PO PRN (12:06)
--- NOTE | 2022-07-18 15:18 | EKG ---
Test Date: 2022-07-18 Test Time: 03:50:30 Excel Developer: GRACIELA MEASUREMENT RESULTS: Intervals: Rate: 61 MO: 218 QRSD: 124 QT: 426 QTc: 428 [place]: P: 37 MO: 218 QRS: 8 T: 51 INTERPRETIVE STATEMENTS: Sinus rhythm with 1st degree AV block Nonspecific intraventricular conduction delay Borderline ECG Compared to ECG 07/06/2021 21:04:16 No significant changes Electronically Signed On 07-18-22 15:17:46 CDT by Perry Mirza
[2022-07-18] MEDS: INSULIN -REGULAR HUMAN 50 UNIT/0.5 ML ML SQ SCH ×2 (16:30→21:57)
[2022-07-18] MEDS ORDERED: INSULIN -REGULAR HUMAN 50 UNIT/0.5 ML ML ONE (17:46)
[2022-07-18 17:55] VITALS: BMI 29.8
[2022-07-18] MEDS ORDERED: DIPHENHYDRAMINE 25 MG TAB/CAP PO PRN (22:20)
[2022-07-19] MEDS ORDERED: IBUPROFEN 400 MG TAB PO PRN (00:24)
[2022-07-19 06:21] LABS: Urine Bilirubin Negative (Negative); Urine Blood Negative (Negative); Urine Clarity Clear (Clear); Urine Color Yellow (Yellow); Urine Glucose 1+ (Negative); Urine Protein Negative (Negative); Urine Urobilinogen 0.2 mg/dL (0.2-1.0)
[2022-07-19 06:21] LABS: Absolute Lymphocytes (CBC) 3.9 K/uL (0.7-4.9); Lymphocytes % 36.7 % (15.3-44.8); MCV 92.4 fL (80-100); RBC Red Blood Cell Count 4.32 M/uL (4.33-5.43)
[2022-07-19 06:31] LABS: Magnesium 1.6 mg/dL (1.8-2.4); Phosphorus 2.9 mg/dL (2.5-4.9); Potassium 3.9 mmol/L (3.5-5.1)
[2022-07-19] MEDS: CEFTRIAXONE 1,000 MG in NA CHLORIDE 0.9% 50 ML IVPB SCH (08:14)
[2022-07-19] MEDS: AZITHROMYCIN IV 500 MG in NA CHLORIDE 0.9% 250 ML IVPB SCH (08:15)
[2022-07-19] MEDS: INSULIN -REGULAR HUMAN 50 UNIT/0.5 ML ML SQ SCH ×2 (08:16→11:30)
[2022-07-19] MEDS ORDERED: ENOXAPARIN 40 MG/0.4 ML SQ SCH (09:00)
[2022-07-19 10:18] VITALS: O2SAT 96
--- NOTE | 2022-07-19 12:31 | P.DS ---
Admission Date: 07/18/22 Discharge Date: 07/19/22 Disposition: ROUTINE DISCHARGE Discharge Condition: FAIR Reason for Admission: Confusion - Problems (1) Acute metabolic encephalopathy Current Visit: Yes Status: Acute (2) Pneumonia Current Visit: Yes Status: Acute (3) Diabetes mellitus Current Visit: No Status: Chronic Qualifiers: Diabetes mellitus type: type 2 Diabetes mellitus group home insulin use: without group home use Diabetes mellitus complication status: with hyperglycemia Qualified Code(s): E11.65 - Type 2 diabetes mellitus with hyperglycemia (4) Hypertension Current Visit: No Status: Chronic Qualifiers: Hypertension type: primary hypertension Qualified Code(s): I10 - Essential (primary) hypertension Brief History of Present Illness: 72-year-old gentleman with a history of medical problems including diabetes mellitus and hypertension presented to the emergency department accompanied by his spouse due to confusion of about 2 days duration. Patient denied any fever or chills. He endorsed dysuria but no urinary frequency. He denied any cough or shortness of breath. Work-up in the emergency department unremarkable except chest x-ray demonstrating possible right small pleural effusion and hazy opacity in the left lower lobe. UA did not suggest UTI. Delirium suspected. Patient was hospitalized for further management. Hospital Course: Patient placed under observation on the medical floor. He was asymptomatic during the hospital stay. He remained alert and oriented x4, no altered mental status or confusion. Blood cultures yielded no growth. UA showed no evidence of UTI. Chest x-ray demonstrated mild hazy opacity. Patient was treated for possible pneumonia. Ordered vitamin B12 level which need to be followed as an outpatient. was concerned about TIA. Patient discharged with aspirin and Lipitor, folic acid and vitamin B12 supplementation. He is informed to follow with neurology for comprehensive mental status examination including memory. He is informed not to drive until cleared by neurology. Vital Signs/Physical Exam: Temp Pulse Resp BP Pulse Ox 97.3 F 83 18 149/85 H 96 07/19/22 07:37 07/19/22 07:37 07/19/22 07:37 07/19/22 07:37 07/19/22 07:37 General: Alert, Oriented x3 HEENT: Mucous membr. moist/pink, EOMI, Sclerae nonicteric Neck: Supple, No Thyromegaly Respiratory: Clear to auscultation bilaterally, Normal air movement Cardiovascular: No edema, Regular rate/rhythm, Normal S1 S2 Gastrointestinal: Normal bowel sounds, Soft and benign, Non-distended, No tenderness Musculoskeletal: No swelling, No tenderness Integumentary: No rashes, No erythema, No cyanosis Neurological: Normal strength at 5/5 x4 extr, Cranial nerves 3-12 intact, Normal affect Lymphatics: No axilla or inguinal lymphadenopathy Laboratory Data at Discharge: WBC 10.70 K/uL (4.3-10.9) 07/19/22 05:58 Hgb 13.4 g/dL (13.6-17.9) L 07/19/22 05:58 Hct 40.0 % (39.6-49.0) 07/19/22 05:58 Plt Count 406 K/uL (152-406) 07/19/22 05:58 Sodium 137 mmol/L (136-145) 07/19/22 05:58 Potassium 3.9 mmol/L (3.5-5.1) 07/19/22 05:58 BUN 10 mg/dL (7-18) 07/19/22 05:58 Creatinine 0.74 mg/dL (0.55-1.3) 07/19/22 05:58 Glucose 205 mg/dL (74-106) H 07/19/22 05:58 Phosphorus 2.9 mg/dL (2.5-4.9) 07/19/22 05:58 Magnesium 1.6 mg/dL (1.8-2.4) L 07/19/22 05:58 Home Medications: Bupropion HCl [Wellbutrin Xl] 150 mg PO DAILY 04/09/22 Glipizide [Glipizide ER] 10 mg PO BID 04/09/22 Losartan Potassium 25 mg PO BEDTIME 04/09/22 Metformin HCl [Metformin HCl ER] 750 mg PO BID 04/09/22 Metoprolol Tartrate 50 mg PO BID 04/09/22 Aspirin [Aspirin EC 81 MG] 81 mg PO DAILY #30 tab 07/19/22 Cyanocobalamin (Vitamin B-12) [Vitamin B-12] 1,000 mcg PO DAILY #30 07/19/22 Folic Acid 1 mg PO DAILY #30 tab 07/19/22 Gabapentin 300 mg PO TID 07/19/22 Pantoprazole [Protonix Tab*] 40 mg PO DAILY 07/19/22 New Medications: Aspirin [Aspirin EC 81 MG] 81 mg PO DAILY #30 tab Folic Acid 1 mg PO DAILY #30 tab Cyanocobalamin (Vitamin B-12) [Vitamin B-12] 1,000 mcg PO DAILY #30 Physician Discharge Instructions: Please do not drive until you are cleared by neurology. Diet: AHA Activity: Ad zen Followup: Stanislaw Robles MD [ASSOCIATE-ACTIVE - CAN ADMIT] - 1-2 Weeks (Mental status examination) Ruy Stock DO [Primary Care Provider] -
[2022-07-19] MEDS ORDERED: MAGNESIUM SULFATE 1 gm IVPB 1 GM/100 ML BAG IV ONE (12:45)
[2022-07-19 13:00] VITALS: BP 130/76; TEMP 97
--- NOTE | 2022-07-20 10:58 | RAD REPORT ---
EXAM DESCRIPTION: CT - Head Brain Wo Cont - 07/18/2022 6:21 am CLINICAL HISTORY: The patient is 72 years old and is Male; Altered mental status TECHNIQUE: Axial computed tomography images of the head/brain without intravenous contrast. Sagitt al and coronal reformatted images were created and reviewed. This CT exam was performed using one o r more of the following dose reduction techniques: automated exposure control, adjustment of the mA and/or kV according to patient size, and/or use of iterative reconstruction technique. COMPARISON: No relevant prior studies available. FINDINGS: Brain: Mild nonspecific white matter changes likely related to chronic microvascular isc hemic disease. Mild cerebral atrophy. No hemorrhage. Ventricles: Unremarkable. No ventriculomegaly. Bones/joints: Unremarkable. No acute fracture. Soft tissues: Unremarkable. Sinuses: Unremarkable as visualized. Mastoid air cells: Unremarkable as visualized. No mastoid effusion. IMPRESSION: No acute intracranial abnormality. Electronically signed by: Serge Kraft MD 07/18/2022 4:44 AM CDT Due to temporary technical issues with the PACS/Fluency reporting system, reports are being signed by the in house radiologists without review as a courtesy to insure prompt reporting. The interpreting radiologist is fully responsible for the content of the report.
--- NOTE | 2022-07-20 11:08 | RAD REPORT ---
EXAM DESCRIPTION: RAD - Chest Single View - 07/18/2022 3:21 am CLINICAL HISTORY: The patient is 72 years old and is Male; ams TECHNIQUE: Frontal view of the chest. COMPARISON: No relevant prior studies available. FINDINGS: Lungs: Hazy opacification of the left lung base. Pleural space: Blunting of the right costophrenic angle which may indicate a right pleural effusi on. No pneumothorax. Heart: Unremarkable. Mediastinum: Unremarkable. Bones/joints: Unremarkable. IMPRESSION: 1. Blunting of the right costophrenic angle which may indicate a right pleural effusio n. 2. Hazy opacification of the left lung base. Electronically signed by: Serge Kraft MD 07/18/2022 3:32 AM CDT Due to temporary technical issues with the PACS/Fluency reporting system, reports are being signed by the in house radiologists without review as a courtesy to insure prompt reporting. The interpreting radiologist is fully responsible for the content of the report.
== END 2022-07-19 15:56 | disposition home or self-care (01) ==
LOC: ER 01:46 → INTOOBSV 11:30 → ERHOLD 11:30 → 4TH 20:44
PROVIDERS: ADMIT Internal Medicine; ATTEND Internal Medicine
DX: G93.41 Metabolic encephalopathy (principal); E11.65 Type 2 diabetes mellitus with hyperglycemia; I10 Essential (primary) hypertension; E86.0 Dehydration; E11.40 Type 2 diabetes mellitus with diabetic neuropathy, unspecified; R30.0 Dysuria; N40.0 Benign prostatic hyperplasia without lower urinary tract symptoms; M19.90 Unspecified osteoarthritis, unspecified site; Z20.822 Contact with and (suspected) exposure to COVID-19; Z79.84 Long term (current) use of oral hypoglycemic drugs; Z79.899 Other long term (current) drug therapy; Z88.2 Allergy status to sulfonamides; Z88.8 Allergy status to other drugs, medicaments and biological substances; Z90.49 Acquired absence of other specified parts of digestive tract; Z87.19 Personal history of other diseases of the digestive system; Z86.14 Personal history of Methicillin resistant Staphylococcus aureus infection; Z96.652 Presence of left artificial knee joint; Z90.81 Acquired absence of spleen; Z82.49 Family history of ischemic heart disease and other diseases of the circulatory system; Z83.79 Family history of other diseases of the digestive system
CPT/HCPCS: 36415; 70450; 71045; 80048; 80061; 81003; 82607; 82947; 83735; 84100; 84443; 84484; 85025; 87040; 87811; 93005; 94760; 96365; 96375; 99285; G0378; J0456; J1650; J1815; J3475; J7030; J7050

== ENCOUNTER 2022-08-06 23:32 | Observation (INO) | payer MEDICARE ==
--- OUTSIDE RECORDS SUMMARY | 2022-08-06 23:35 | XMS REPORT | Clinical Summary ---
:1950 Author Organization [facility] MD [facility] Address [address] [place] [address] Care Team Providers Name Role Phone Spike [...] Vaccination (#1) 1950 Results Not on fileafter 08/06/2021 Insurance Payer Benefit Plan Subscriber ID Effective Phone Address Typ e / Group Dates MEDICARE MEDICARE PART [id number] 2009-Prese [phone] [facility] Medicare A AND B nt [id number] SOLUTIONS [address] [facility] [place] [address] A[employer]NA SENIOR AETNA SENIOR [id number] 2018-Pres [address] [employer] SUPPLEMENT SUPPLEMENT-SE ent [phone] [place] [address] Care Teams Insurance Adjustor Relationship Specialty Start Date End Date Spike Whyte MD PCP - General Gastroenterology, 07/09/20 [address] [facility] [place] [address] ([place])
--- OUTSIDE RECORDS SUMMARY | 2022-08-06 23:36 | XMS REPORT | Continuity of Care Document ---
:1950 Author Organization [facility] t Address [address] [place] [address] Dr. [address] [place] [address] Care Team Providers Name Role Phone Asked, No Pcp Primary Care Physician Unavailable Ruy Stock Attending Clinician Unavailable SYSTEM, PROVIDER NOT IN Attending Clinician Unavailable JULES MURPHY Attending Clinician Unavailable JULES MURPHY Attending Clinician Unavailable Jules Murphy MD Attending Clinician [phone] Carlos Boudreaux MD Attending Clinician [phone] Tumcarley_Ronna Attending Clinician Unavailable Amy Guillen Attending Clinician Radha Attending Clinician Unavailable Jesus Townsend MD Attending Clinician DARREL SYED Attending Clinician Unavailable JULES MURPHY Admitting Clinician Unavailable Briana Admitting Clinician Unavailable Radha Admitting Clinician Unavailable Payers Payer Name Policy Type Policy Number Effective Date Expiration Date S kasietab [facility] [id number] PPO/EPO - BCBS [id number] [facility] MGD [id number] 2021 [facility] 00:00:00 [facility] [id number] 2021 (MEDICARE 00:00:00 REPLACEMENT HMO) MEDICARE PART A AND [id number] 2009 B 00:00:00 HENRIQUE SENIOR [id number] 2018 SUPPLEMENT-SECONDAR 00:00:00 Y ONLY Problems This patient has no known problems. Allergies, Adverse Reactions, Alerts Allergy Allergy Status Severity Reaction(s) Onset Inactive Treating Comm ents Source Name Type Date Date Clinician Sulfa Drug Active Rash [facility] Antibiot 00 [facility] ics) SULFA Allergy Active Low Rash [facility] (SULFONA 7-[facility] Medical ANTIBIOT 00 Center ICS) Social History Social Habit Start Date Stop Date Quantity Comments Source Alcohol intake 2022-07-08 2022-07-08 Ex-drinker [facility] (finding[facility] Center Exposure to 2022-06-27 2022-07-[address] [facility] SARS-CoV-2 00:00:00 10:27:00 Medical Center (event) Tobacco use and 2022-06-11 2022-06-[address] [facility] exposure 00:00:00 00:00:00 [facility] Tobacco Comment 2022-06-11 2022-06-11 quit [address] [facility] 00:00:00 00:00:00 [facility] Sex Assigned At [address] [facility] 00:[facility]:00 00:[facility]:00 [facility] Center Smoking Status Start Date Stop Date Source Tobacco smoking [facility] consumption unknown Former smoker 2022-06-11 00:00:00 2022-06-[address] [facility] 00:[facility] Center Medications Ordered Filled Start Stop Current Ordering Indication Dosage Frequency Signature Comments Components Source Medication Medication Date Date Medication? Clinician (SIG) Name Name docusate Yes 100mg Q.5D Take [address] sodium 8-16 mg by [facility] (COLACE) 16:01: mouth 2 Medica l 100 MG 16 (two) Center capsule times daily. metFORMIN Yes 1000mg Take 1,[address] [facility] [facility] (GLUCOPHAGE 8-16 mg by [facility] ) 1000 MG 16:01: mouth 2 Medic al tablet 16 (two) Center times daily with breakfast and dinner. pantoprazol 0 Yes 40mg QD Take [address] [facility] e 8-16 by mouth [facility] (PROTONIX) 16:01: daily. Medic al 40 MG 16 Center tablet magnesium 0 Yes 400mg QD Take [address] oxide 8-16 mg by [facility] (MAG-OX) 16:01: mouth Medical 400 mg 16 daily. Center (241.3 mg magnesium) tablet pancrelipas 0 Yes [id number]{ Q.13328638 Take [facility] e, 8-16 lipase} [id number] 36,000 [facility] Lip-Prot-Am 16:01: 3D units of Me dical yl, (Creon) [address] 36,000-114, mouth 3 000- (three) 180,000 times unit CpDR daily 2 capsule capsules with meals and 1 capsule with snack . losartan 0 Yes 25mg QD Take [address] (COZAAR) 25 8-16 by mouth Luke s MG tablet 16:01: nightly. Medi wesley 16 Center gabapentin 0 Yes 300mg Q.79346703 Take [address] (NEURONTIN) 8-16 [id number] mg by L ukes 300 MG 16:01: 3D mouth 3 Medical capsule 16 (three) Center times daily. glipiZIDE 0 Yes 10mg Take [address] (GLUCOTROL) 8-16 by mouth 2 Rehana kes 10 MG 16:01: (two) Medical tablet 16 times Center daily before meals. DULoxetine 0 Yes 20mg QD Take [address] (CYMBALTA) 8-16 by mouth [facility] 20 MG 16:01: daily. Medical capsule 16 Center buPROPion 0 Yes 150mg Q.5D Take [address] (WELLBUTRIN 8-16 mg by [facility] SR) 150 MG 16:01: mouth 2 Medi wesley 12 hr 16 (two) Center tablet times daily. cinnamon 0 Yes QD Take by [facility] bark-chromi 8-16 mouth [facility] um picolin 16:01: daily. Medic al 500-100 16 Center mg-mcg Cap metoprolol 0 Yes 25mg Q.5D Take [address] tartrate 8-16 by mouth 2 [facility] (LOPRESSOR) 16:01: (two) Medic al 25 MG 16 times Center tablet daily. Missing or 2021-0 Yes QD daily [facility] Non-Formula 8-16 Apple [facility] ry 16:01: cidar Medical Medication 16 vinegar Center 450 mg . Missing or 0 Yes Krill Oil, [facility] Non-Formula 8-16 pt not [facility]ukes ry 16:01: sure of Medical Medication 16 dose . Center docusate 2021-0 Yes 100mg Q.5D Take [address] sodium 8-16 mg by Lukes (COLACE) 16:01: mouth 2 Medica l 100 MG 16 (two) Center capsule times daily. metFORMIN 2021-0 Yes 1000mg Take 1,[address] (GLUCOPHAGE 8-16 mg by [facility]ukes ) 1000 MG 16:01: mouth 2 Medic al tablet 16 (two) Center times daily with breakfast and dinner. pantoprazol 0 Yes 40mg QD Take [address] [facility] e 8-16 by mouth [facility]ukes (PROTONIX) 16:01: daily. Medic al 40 MG 16 Center tablet magnesium 0 Yes 400mg QD Take [address] oxide 8-16 mg by Lukes (MAG-OX) 16:01: mouth Medical 400 mg 16 daily. Center (241.3 mg magnesium) tablet pancrelipas 2021-0 Yes [id number]{ Q.52371515 Take [facility] e, 8-16 lipase} [id number] 36,000 [facility] s Lip-Prot-Am 16:01: 3D units [...] wesley 16 Center gabapentin 2021-0 Yes 300mg Q.73175149 Take [address] (NEURONTIN) 8-16 [id number] mg by L ukes 300 MG 16:01: 3D mouth 3 Medical capsule 16 (three) Center times daily. glipiZIDE 2021-0 Yes 10mg Take [address] (GLUCOTROL) 8-16 by mouth 2 Rehana kes 10 MG 16:01: (two) Medical tablet 16 times Center daily before meals. DULoxetine Yes 20mg QD Take [address] (CYMBALTA) 8-16 by mouth [facility] 20 MG 16:01: daily. Medical capsule 16 Center buPROPion 0 Yes 150mg Q.5D Take [address] (WELLBUTRIN 8-16 mg by [facility] SR) 150 MG 16:01: mouth 2 Medi wesley 12 hr 16 (two) Center tablet times daily. cinnamon 0 Yes QD Take by [facility] bark-chromi 8-16 mouth [facility]ukes um picolin 16:01: daily. Medic al 500-100 16 Center mg-mcg Cap metoprolol Yes 25mg Q.5D Take [address] tartrate 8-16 by mouth 2 [facility] (LOPRESSOR) 16:01: (two) Medic al 25 MG 16 times Center tablet daily. Missing or 2021-0 Yes QD daily [facility] Non-Formula 8-16 Apple [facility] ry 16:01: cidar Medical Medication 16 vinegar Center 450 mg . Missing or 2021-0 Yes Krill Oil, [facility] Non-Formula 8-16 pt not [facility] ry 16:01: sure of Medical Medication 16 dose . Center Vital Signs Vital Name Observation Time Observation [...] kg Systolic blood 2022-07-07 15:10:00 126 mm[Hg] [facility] Diastolic blood 2022-07-07 15:10:00 77 mm[Hg] [facility] Heart rate 2022-07-07 15:10:00 68 /min [facility] Body temperature 2022-07-07 15:10:00 36.39 Yris [facility] Respiratory rate 2022-07-07 15:10:00 16 /min [facility] Oxygen saturation in 2022-07-07 14:40:00 99 /min [facility] Arterial blood by Medical Ce nter Pulse oximetry Body height 2022-07-07 10:10:00 182.9 cm [facility] Body weight 2022-07-07 10:10:00 95.391 kg [facility] BMI 2022-07-07 10:10:00 28.52 kg/m2 [facility] Procedures Procedure Date / Time Performed Performing Clinician [facility] e REPORT OF PROCEDURE - 2022-07-10 16:40:00 Miguel Angel [facility] ENDOSCOPY URL [facility] TISSUE EXAM 2022-07-07 14:21:00 Miguel Angel [facility] COLONOSCOPY 2022-07-07 12:43:00 Otromana [facility] COLONOSCOPY, WITH 2022-07-07 12:43:00 Miguel Angel [facility] SUBMUCOSAL RESECTION [facility] POCT-GLUCOSE METER 2022-07-07 11:03:00 Miguel Angel [facility] CT HEART SCAN W 2021-11-03 18:12:00 Jesus Townsend PHYSICIAN ORDER Plan of Care Planned Activity Planned Date Details Comments Source Future Scheduled 2032-07-[address] [facility] [facility] Test 00:00:00 malignant neoplasm of Medica l Center colon (procedure) [code = 734336179] Future Scheduled 2032-07-[address] [facility] Test 00:00:00 malignant neoplasm of Medica l Center colon (procedure) [code = 292448059] Future Scheduled 2032-07-[address] [facility] Test 00:00:00 [facility] (procedure) [code = 304410554] Future Scheduled 2032-07-[address] [facility] Test 00:00:00 [facility] colon (procedure) [code = 623335927] Future Scheduled 2022-07-23 INFLUENZA VACCINE (#1) [facility] Test 00:00:00 [code = INFLUENZA Medical Ce nter VACCINE (#1)] Future Scheduled 2022-07-23 INFLUENZA VACCINE (#1) [facility] Test 00:00:00 [code = INFLUENZA Medical Ce nter VACCINE (#1)] Future Scheduled 2022-07-21 HEPATITIS B VACCINES Met [facility] Test 02:20:16 (1 of 3 - 3-dose series) [code = HEPATITIS B VACCINES (1 of 3 - 3-dose series)] Future Scheduled 2022-07-21 65+ PNEUMOCOCCAL Methodi Hospital Test 02:20:16 VACCINE (1 - PCV) [code = 65+ PNEUMOCOCCAL VACCINE (1 - PCV)] Future Scheduled 2022-07-21 DIABETES: RETINAL EYE [facility] Test 02:20:16 EXAM [code = DIABETES: RETINAL EYE EXAM] Future Scheduled 2022-07-21 [facility] Test 02:20:16 [code = DIABETIC FOOT EXAM] Future Scheduled 2022-07-21 URINE [facility] Test 02:20:16 [code = URINE MICROALBUMIN] Future Scheduled 2022-07-21 Hepatitis C screening [facility] Test 02:20:16 (procedure) [code = 011437978] Future Scheduled 2022-07-21 COLONOSCOPY SCREENING [facility] Test 02:20:16 [code = COLONOSCOPY SCREENING] Future Scheduled 2022-07-21 SHINGLES VACCINES (1 [facility] Test 02:20:16 of 2) [code = SHINGLES VACCINES (1 of 2)] Future Scheduled 2022-07-21 COVID-19 VACCINE (3 - Me [facility] Test 02:20:16 Booster for Marv series) [code = COVID-19 VACCINE (3 - Booster for Marv series)] Future Scheduled 2022-07-21 INFLUENZA VACCINE Method [facility] Test 02:20:16 [code = INFLUENZA VACCINE] Future Scheduled 2022-07-15 HEPATITIS B VACCINES Met [facility] Test 02:16:51 (1 of 3 - 3-dose series) [code = HEPATITIS B VACCINES (1 of 3 - 3-dose series)] Future Scheduled 2022-07-15 65+ PNEUMOCOCCAL Methodi [facility] Test 02:16:51 VACCINE (1 - PCV) [code = 65+ PNEUMOCOCCAL VACCINE (1 - PCV)] Future Scheduled 2022-07-15 DIABETES: RETINAL EYE [facility] Test 02:16:51 EXAM [code = DIABETES: RETINAL EYE EXAM] Future Scheduled 2022-07-15 DIABETIC FOOT EXAM [facility] Test 02:16:51 [code = DIABETIC FOOT EXAM] Future Scheduled 2022-07-15 URINE MICROALBUMIN [facility] Test 02:16:51 [code = URINE MICROALBUMIN] Future Scheduled 2022-07-15 Hepatitis C screening [facility] Test 02:16:51 (procedure) [code = 352562670] Future Scheduled 2022-07-[address] [facility] Test 02:16:51 [code = COLONOSCOPY SCREENING] Future Scheduled 2022-07-15 SHINGLES VACCINES (1 Met [facility] Test 02:16:51 of 2) [code = SHINGLES VACCINES (1 of 2)] Future Scheduled 2022-07-15 COVID-19 VACCINE (3 - Me [facility] Test 02:16:51 Booster for Marv series) [code = COVID-19 VACCINE (3 - Booster for Marv series)] Future Scheduled 2022-07-15 INFLUENZA VACCINE Method [facility] Test 02:16:51 [code = INFLUENZA VACCINE] Future Scheduled 2022-05-27 COVID-19 Vaccination [facility] Test 06:58:12 (#1) [code = COVID-19 [facility] Vacc[facility] (#1)] Center Future Scheduled 2022-05-27 COVID-19 Vaccination [facility] Test 06:58:12 (#1) [code = COVID-19 MD [...] Medicare IPPE (WELCOME TO MEDICARE)] Future Scheduled 2021-11-[address] [...] screening Medical C enter (procedure) [code = 741433795] Future Scheduled 2016 PNEUMOCOCCAL 65+ [facility] Test 00:00:00 (1 - PCV) [code = Medical Ce nter PNEUMOCOCCAL 65+ YRS (1 - PCV)] Future Scheduled [address] [facility] Test 00:00:00 aneurysm screening Medical C enter (procedure) [code = 266558757] Future Scheduled 2016 PNEUMOCOCCAL 65+ Y[facility] Test 00:00:00 (1 - PCV) [code = Medical Ce nter PNEUMOCOCCAL 65+ YRS (1 - PCV)] Future Scheduled 2001 SHINGLES VACCINES ([address] [facility] Test 00:00:00 of 2) [code = SHINGLES Medic al Center VACCINES (1 of 2)] Future Scheduled 2001 SHINGLES VACCINES ([address] [facility] Test 00:00:00 of 2) [code = SHINGLES Medic al Center VACCINES (1 of 2)] Future Scheduled 1970 DTAP/TDAP/TD VACCINES [facility] Test 00:00:00 (1 - Tdap) [code = Medical C enter DTAP/TDAP/TD VACCINES (1 - Tdap)] Future Scheduled 1970 DTAP/TDAP/TD VACCINES [facility] Test 00:00:00 (1 - Tdap) [code = Medical C enter DTAP/TDAP/TD VACCINES (1 - Tdap)] Future Scheduled 1969 HEPATITIS C [facility]CRE[facility]ING [facility] Test 00:00:00 [code = HEPATITIS C Medical Center SCREENING] Future Scheduled 1969 HEPATITIS C [facility]CRE[facility]ING [facility] Test 00:00:00 [code = HEPATITIS C Medical Center SCREENING] Future Scheduled 1950 COVID-19 VACCINE (#1) [facility] Test 00:00:00 [code = COVID-[address] VACCINE (#1)] Future Scheduled 1950 COVID-19 VACCINE (#1) [facility] Test 00:00:00 [code = COVID-[address] VACCINE (#1)] Future Scheduled [address] [facility] Test 00:00:00 (combo) [code = CT Medical C enter Colonography (combo)] Future Scheduled [address] [facility] [facility] Test 00:00:00 malignant neoplasm of Medica l Center colon (procedure) [code = 576547594] Future Scheduled [address] [facility] [facility] Test 00:00:00 malignant neoplasm of Medica l Center colon (procedure) [code = 698307127] Future Scheduled 1950 Sigmoidoscopy [code = [facility] Test 00:00:00 Sigmoidoscopy] Medical Cente r Future Scheduled [address] [facility] Test 00:00:00 (combo) [code = CT Medical C enter Colonography (combo)] Future Scheduled [address] [facility] [facility] Test 00:00:00 malignant neoplasm of Medica l Center colon (procedure) [code = 242417745] Future Scheduled [address] [facility] [facility] Test 00:00:00 malignant neoplasm of Medica l Center colon (procedure) [code = 872445690] Future Scheduled 1950 Sigmoidoscopy [code = [facility] Test 00:00:00 Sigmoidoscopy] Medical Cente r Encounters Start End Encounter Admission Attending Care Care Encounter Source Date/Time Date/Time Type Type Clinicians Facility Department ID 2022-04-17 Outpatient Montrell [facility] [id number] Common 09:07:02 Ruy [facility] 2022-03-10 Outpatient Stock, STLMLC [facility] [id number] Common 10:25:03 Ruy [facility] 2021-12-17 Outpatient Stock, STLMLC [facility] [id number] Common 13:57:21 Ruy 99069 [facility] 2020-07-22 Outpatient SYSTEM, [facility] [id number] 10:27:39 PROVIDER Doe jeffers 2022-07-07 2022-07-13 Outpatient LILIAM MURPHY [facility] [id number] [facility] 16:56:58 16:59:34 [facility] 2022-07-07 2022-07-07 Outpatient [facility] [id number] [facility] 10:07:00 23:59:00 [facility] 2022-07-07 2022-07-07 [facility] [id number] [facility] 10:07:00 15:55:00 [facility] 2022-07-07 2022-07-07 [facility] [id number] 10:07:00 15:55:00 Encounter Jules Molina [facility] 2022-07-07 2022-07-07 [facility] [id number] 10:07:00 15:55:00 Encounter Jules Molina [facility] 2022-07-07 2022-07-07 Anesthesia Kanika [facility] [id number] 12:53:00 14:39:00 Event [facility] 2022-07-07 2022-07-07 Anesthesia Kanika [facility] [id number] 12:53:00 14:39:00 Event [facility] 2022-07-07 2022-07-07 [facility] [id number] 12:00:00 13:30:00 Mohvamshi Murphy Ali [facility] 2022-07-07 2022-07-07 Surgery [facility] [id number] 12:00:00 13:30:00 [facility]ve [facility] 2022-07-07 2022-07-07 Travel [facility] [id number] [facility] 00:[facility]:00 00:00:00 [facility] 2022-07-07 2022-07-07 Travel [facility] [id number] [facility] 00:[facility]:00 00:00:00 [facility] 2022-06-11 2022-06-11 Outpatient EL [facility] [id number] [facility] 10:18:46 23:59:00 2022-06-11 2022-06-11 [facility] [id number] 08:50:00 23:59:[address] [facility] 2022-06-11 2022-06-11 [facility] [id number] 08:50:00 23:59:[address] [facility] 2022-06-11 2022-06-11 Travel [facility] [id number] [facility] 00:[facility]:00 00:00:00 [facility] 2022-06-11 2022-06-11 Travel [facility] [id number] [facility] 00:[facility]:00 00:00:00 [facility] 2022-06-05 2022-06-05 Outpatient Tumelson_A DMG DMG [id number] 07:10:00 07:10:00 0715 Medica l Group 2022-05-19 2022-05-19 CAV Amy 2.16.840. 2.16.840.1. CLAC XWZY4G [facility] 15:30:00 16:30:00 [place] 1.246921. 693189.4.6. [facility] 4.6.18825 [id number] 2022-05-12 2022-05-12 Outpatient Tumelson_A DMG DMG [id number] 02:59:00 02:59:00 0621 Medica l Group 2022-02-03 2022-02-03 Outpatient Johnson_J DMG DMG [id number] -2021 [facility] 01:00:00 01:00:00 0315 Medica l Group 2021-11-03 2021-11-03 [facility] Attar, 1.2.840.1 [id number] Methodi 10:58:26 23:59:00 Encounter Jesus 38213.1.1 126 s t 3.430.2.7 Hospit a .3.864244 l .8 2021-11-03 2021-11-03 [facility] Attar, 1.2.840.1 [id number] Methodi 10:58:26 23:59:00 Encounter Jesus 36098.1.1 126 s t 3.430.2.7 Hospit a .3.442039 l .8 2021-11-03 2021-11-03 Travel 1.2.840.1 1.2.810.925 [id number] Methodi 00:00:00 00:00:[address] 3.430.2.7 0.2.7.3.698 Ho spita .3.337464 084.8 l .8 2021-11-03 2021-11-03 Travel 1.2.840.1 1.2.778.175 [id number] Methodi 00:00:00 00:00:[address] 3.430.2.7 0.2.7.3.698 Ho spita .3.727970 084.8 l .8 2021-10-21 2021-10-21 Travel 1.2.840.1 1.2.640.094 [id number] Methodi 00:00:00 00:00:[address] 3.430.2.7 0.2.7.3.698 Ho spita .3.635564 084.8 l .8 2021-10-21 2021-10-21 Transcribe Attar, 1.2.840.1 [id number] Methodi 00:00:00 00:00:00 Orders Jesus [address]14.1.[address] 3.430.2.7 Hospit a .3.368883 l .8 2021-10-21 2021-10-21 Travel 1.2.840.1 1.2.044.517 [id number] Methodi 00:00:00 00:00:[address] 3.430.2.7 0.2.7.3.698 Ho spita .3.964625 084.8 l .8 2021-10-21 2021-10-21 Transcribe Attar, 1.2.840.1 [id number] Methodi 00:00:00 00:00:00 Orders Jesus 23775.1.[address] 3.430.2.7 Hospit a .3.475138 l .8 2021-03-24 2021-03-24 Outpatient Johnson_J DMG DMG [id number] -[id number] [facility] 03:56:00 03:56:00 0503 Medica l Group 2020-07-18 2020-07-18 Outpatient GE, DARREL MDA MDA [id number] 13:04:26 13:04:26 Doe o n 2020-07-18 2020-07-18 Outpatient GE, DARREL MDA MDA [id number] 13:04:22 13:04:22 Doe o n 2020-07-18 2020-07-18 Outpatient GE, DARREL MDA MDA [id number] 13:03:54 13:03:54 Doe o n 2020-07-18 2020-07-18 Outpatient GE, DARREL MDA MDA [id number] 13:03:53 13:03:53 Doe o n 2020-07-18 2020-07-18 Outpatient GE, DARREL MDA MDA [id number] 13:03:52 13:03:52 Doe o n 2020-07-18 2020-07-18 Outpatient GE, DARREL MDA MDA [id number] 13:03:51 13:03:51 Doe o n 2020-07-18 2020-07-18 Outpatient DARREL SYED MDA [facility] [id number] 13:03:50 13:03:50 Doe o n 2020-07-11 2020-07-11 Outpatient EL DARREL SYED MDA [facility] [id number] 00:00:00 00:00:00 Doe o n 2020-07-09 2020-07-09 Outpatient DARREL MENJIVAR MDA [facility] [id number] 15:17:45 15:17:45 Doe o n Results Test Description Test Time Test Comments Results Result Comments Source Tissue Exam 2022-07-10 16:39:00 Test Item Value Reference Range Interpretation Comme nts Case Report (test code = 104) Surgical Pathology Report Case: [id number] Authorizing Provider: Jules Murphy Collected: 07/07/2022 02:21 PM MD Tracy Ordering Location: [facility] Endoscopy Received: 07/07/2022 04:35 PM Services Pathologist: Idris Sanford MD Specimen: Polyp, Colon - Transverse, Removed by EMR DIAGNOSIS (test code = 3220) l8wsyCEwEYVdh8uhEFBvxDWgOhUwKuPeUxWmEg p cdWMxIHtccnRmMVxlcGljOTYwMlxhbnNpXHNwbH LxC5XmfkqlLNgwZS1lZX8uwBkmuRXvoIMhDYNyM vDsl1lba818qJFan5pcBXTVwyvzeRt8vZazP10f g2S3WzlkU50tuNTiDYI4IJOaWBFdjASyCNNxMAS 5AJMeeQQlE2loSEGpYE9kgazvAGkrRCyjTOVwuU T7WRZedBVeR5SgTZPcIVrvTIWcyuw5KoUnBj1iu GVyeTcyMFxwYXJkXHBsYWluXGZzMjAgVFJBTlNW RPVEVVIHC0fEYdpuBU7ZSXDbOOHUJL4YH99WNZO oOFHHB2SNQPBHHTREG5DAE256MELkcwhmlDxpJY gycH47IkMcQFIUBUOYAPIRWUSUWU3WRIUhRXZRV 1SBFTNLNQYPYVJXA13EMHPWOqVQAJgjIJWvS88g zGBeaCsagXBpXJ6hTJHHQXUVXJBTUQ0pIGKjKzC XUPPCNbQpZd3TSZMHZ7LFEYMVOAxfUZK0x8ntsV YxXHNzdGUxODAwMFxhbnNpXGRlZmxhbmcxMDMzX KO4erCcYNOiHJqxTHDiHDbuWl1ftZPsoYzaZwMo QEIut2zlnzQOhzppuNu3t0jvUBOfDxF3zLUkOFf cE8aolvUrhHBeJQZbTLy4tY84AIMsrA9juLDuRE tvopQyEhM0BCezUMPvZjX6ZJGqyBStQCQkF8czN SZpZIqbZKCnXCoakPEhYAX8jKmyv1P5hEIqzMYt mCtgQyFgXgMmEtJQz1VfTAm1kPgjD8FuXPPkHwM 3mKQjVYAxFTonJVNrDZHmqoJ9nH66NItmoyO8bU Iti3Noe59xf483oL7wdYHsPXF0HAVzESReaCQqY DDuNEP1OEGtpKFqV4vhLIJfUJ0gmvdjOTobDWro XJAbtHA2JLKusTEjH7YsENOrJTphCVIczcl1ZwD iYo7dbJJnlAmoOYutx2tih8dzpZCpCgo2AZDlOk DbRyfvXAgsa5Huv4crHDJpht9yCRA1oRQojEqcx 4G4zBSlPWBwiKSiGCJxMW5caLNmNOUurV7rvjjr AGXrKgOhvefwVQDbwZjxwwTxDz5ssLtkZWF4AAf wE8mvtT5qAnY7QFxtY2ovhT8qFXv1DPznNDUkzQ I1apD8MBZdaRKpT7RdaB9jNUNbEE7oaww5s4szM YC2RTkeDUPkHkB9tlX1AIKajZZgMWEnxHaxLMis m231EBK4ThGsPHTds8UuT8UotQxsU23ugAglU31 mYMFmcCsniP4rjVvniU7kDeDmXlKhFWbxnGcpEF 0kOLDnB5fgbTZtAQNoSGEzW1aoVnLfzV0hzSkgM VafggAtICErJls8DENwbNDvDTTrQbi1SQWlMKLk T26szipoNDZ9yW2vw4kxt1PuHPyuAAV8TKAzg63 aWJstzdU2VXftFm29TFsaQAT8PWkgNWF9dD== COMMENT (test code = 3359) w4qrzEJbYDPzgPQ4LmLeUVUgd5xig7NnyATqeRC qDKihrPMjvlPlvb68pCO7zN65TP6kVODlDiP6VT RltcY7Qhw6KTXoMDPdxHKoR637m2nig1bxhpMcr CB9zWhuHQQktnvwVsF7OMmoTQUpedyrWBg6HEis IJYtwDS2DIImcLXxM2QaOQBtMT1funi6WGK1NEq xIJOfWhD2MCIiyTThAWMhsBhlDNbor106MSP8Bb MqROPevpYmoSgqcH3oUaKdHTXEpSCnkITjo8Ogk X2bNPCxxKijrcFxTJ8avqshodHncHN2fRIpD5Yg sk60UKLaEMKqi9Uan1GnDGR5UFI4fzWimfEdlHT bwSUdSW7lnJEjDWGnFpL3bLKhf7QeM3qoSW2bDO 1dV5P5gLJlWEDeyuLerQiwDJeuYKYzPBO8q0PtY SUuHM0vUx6oz6AqieKyrZBlpWonTI6fgFSbwtJl jkQne9j8XUYqWFAir5CsmcCube9uOPBkrjVfTHO kNjUYy94fGRJrNGS6cdZaMX1aXK07H45fYLuaeC FszEOvd1YeLKW4dhRhFBzrFjBpDwBxyBBsgDqnb imlVH58T46fPCPjTSLqJALpoEZbBIXcrZMsZ3se dGVkLlxwYXJccGFyIElOVFJBREVQQVJUTUVOVEF FBIGJBhGLXID7KROsSzKALSHxIUe3KF4IXAFqWV QWtu8aTNJ8vPGuRROhnaAqvmWbIKAXHXedFRT9 CPT Code(s) (test code = 3357) a4fhiGPzBYCluFU2DxFlKEXrt6rwo9LtjFXr cGF iXMjffZSyjuNzou81cMA6qD12NV7aRHMiFeS8IS IqoqS9Lcr4KXIzYYNhmVKbP893n4knp7nageVlp AO8oDdhHQEdvbcaTfB6XRbyITDcrfehBHz3KIxv VMXfeIW1HWCkwBHmO3NvUXDlPS2sscd0CGD4NLj iKGEsZrT6MVKbxMQcWCDxlJpnPDpha881QPU1Sp NfNHYcbgBcwIrahZ7qSiUdTZS0CQMhG6asNBH0 CLINICAL HISTORY (test code = 3356) f8vjsHZaQSRbfMJ0AhQaSMLqo7cng3D sdHBncGF jKIqejIVdaxBuxz94qWD2yK73PW1xFZXbWbY5XF UusoB3Mus7FSMmEZLzcIRxA762a5eun0jftoQpy NT2DKHfOLGmT1FdCC4sYUMbhQFwT49xeXRuYWF4 DIFmCQItyCVdOGHmJFQ4MOTjoOVoK0hmIZTiQK4 nwsfdAJtmHIjlKCWvvMS1YQAuvUQbR1DjZYRuVV uiHRYhvkp6WhLsAm8bfPHkmIqmVCnpSEYmXRTpR ClupFAyspshgyWcYIFoYSWAhXV0lLIqCDLqEF0b uZYvx1ZgK13cz62ddXKmqG== GROSS DESCRIPTION (test code = o9xtvYHdLSXhyTBHRDVuD3ickzGbPLXpqPKi Z3B [id number]) ekdunPFwjJH0iXJ6qtOoigAUzlTGsRQ7ABBGkNg WtFMNfzSRyziDuZyJtYRHxlXRlsFK5XQOeNR5mu veuNSenPPfxSFGfuyY1LBFdfFCgO3SnWUTgKD1x ecssNQZ2WZmkfP4gjzWQTyaaZq5zfZAoqQpwKzL sBbOwAXSwANRqKUKbsIgiLGPbKZd4qM7FQwyxW5 5rw9Q8Moz3NPZrFRCoR3AhCB1kTDGlnPYcR29OA ctaKZR1SPZHFyupYQRvMD2Yy6yiGVKvnXQlPKN0 ASbxgXIiYFOxDAYzWUf6APKvYKvgtGJkDO8kkDe kUoyhtJczq0HijSOhTGkgHEFvVUMtBAnzCAOcSU 6VUkOpVRCqIuCkUUSlLMo3IYi1EO9ESxOnCNYzF KkaThDfPGTtTVa6FQsvNN5INAOaWoJtWsEzHEW6 INZ5YMFqAJAvPuKrJGOjURJjQQwdNPychWTgYC5 noYleuPVrrcLJYxKDf8e5sBbaA60tj44wNBNApq Twx5HwybBmYhdzASTbMHwhBORyX21ku1UOu0IfT S3UUSb2ypNopigahP7bHLMqzyAxKYwxaGWzV9dz I8FwWMNsKaUoEuQiMNs9QCNyiZ2yGo0owOHsoE5 idYZfAPadBYK7qNZgRDDwOJJeGRXtVR65XOlFGZ MgbmFtZSwgbWVkaWNhbCByZWNvcmQgbnVtYmVyI UMhKEBzyRqeGkCkIDo4H1QwYZ5grfWsg1MiM84r e44ulO0knOUtDWmnJKDsFr89QLfnCH42QPldUR9 3QIAtPDWnT6BjN1B8XLLaKcL8CS7vpBvkhrptwT 8jfAMzlYArx57jqQC2cVNfhSKtEYXYbFZbvK0on HyoWZIvMNaqSE02CJOuheX6hAQjFH4cFLSoSCEq fTLirH7gczuzhPzxMCJlNWgtcNVxMSUevU9xM8R lud76CIZwBBKfk4Ynl7JkCoWpRRhkEWraUV12xU QmSSMoILEkHIFeAU7deoaxwrYwsrKqoeklVUAub GFjayBhbmQgdGhlIHNwZWNpbWVuIGlzIGVudGly KRj6EMD9Cl5yiNKaUOLlceQvq4ctf3glJlyhlK5 xHSwwnW7iVYXcZ5Tkw62sV12bCIaikT9jFAKpBd XOfWj5pHUiUHNtkQNejBOoQFIaTQbgWD37c7nil T7qUXFuSBYcYcQbMFFeQPclUD57UFAfELTmLEom bENgGSM6nI6wARKneBlyISODQQaxLHBggtTepQP xpSesYagpAYO4JYDtxQlqFMNVRKqxKRYxyoUsvO QdqRudBvfkFGT3ZRDrkNCdOI2ZLDQseiLWTpZxt QOjCABaE4RxtHnswprtEKYsQViQOFvBH8SGNGyf QXMyGWpsB9UgFQHaDmOuQHhulBgaxR0uKJZrC23 ub7MEr3IlSIDsUGvfd0xdfSgwa4XwsPEtSTwoHD YoqHQjPOwfuA7nEzKrq1juuZk0JLepnhX8YESlw q6ZDnqdbP5zIfRhe1bvdUu3JYZVNtbysmM0u8te wFova0QjsSYsWT4WLk0= MICROSCOPIC DESCRIPTION (test code = j2dnnXWrOUEqfCG6XeJzTVBll5urb7 [facility] [place] [place] 3371) zSPnauXFvazEgsg33gNB5yN51WS2tYHEqWkT0PS RwmmD5Lbu0QWYeDQJffWKrV397n4xsu2vdxtOqx KA6wWkiTPWcwgieHpV5RQtgXPJxcgvkIHe9PVzk SFKgvDX2PPCxfMTzN6DcMYLtLD6svup2KFV5XSc kYBDwYlC4HBOdmKUoERGvnZkdEOjqn955BIK6Qw BlDALvleLdeRhpnN2xTiFlZUYQVYHhb4ZzNHSoH HBhclxwYXJkXHBhcn0= Gross assessment was performed at (test [facility] enter, code = 2777) Department of Pathology, [address] [place] [address], Technical component was performed at [facility] er, (test code = 2778) Department of Pathology, [address] [place] [address], Professional component was performed at [facility] enter, (test code = 2779) Department of Pathology, [address] [place] [address], [facility] [id number] 16:39:00 Test Item Value Reference Range Interpretation Comments Case Report (test code Surgical Pathology = 104) Report Case: [id number] Authorizing Provider: Jules Murphy Collected: 07/07/2022 02:21 PM MD Tracy Ordering Location: [facility] Endoscopy Received: 07/07/2022 04:35 PM Services Pathologist: Idris Sanford MD Specimen: Polyp, Colon - Transverse, Removed by EMR DIAGNOSIS (test code = [id number] 3220) FuZzEwMzNcZnRuYmpcdWMx IHtccnRmMVxlcGljOTYwMl wijfVbDFZrkTVqU5Vealil KIemXR9bRV3wrSjnkGCrxS IsADZpItLbn2tfu240uCVq a5lnPIULpjhsvQd1hQjfX6 9fq7Q4DasjW19cnQUlFCZ5 NSSwDFVctSEjQFFxTWM3KT UamYPfT2gbKABjYG1brdua HJpaDMgpLWCqkBE1DTYnpK LiJ2GwXNKqOKrpUMTdudo1 FgYtVy9ncDIxdEmcFJhtVR JkXHBsYWluXGZzMjAgVFJB QaFOVFYGSMUDL3tHBwvaTN 6JUGIvJEVJBG9HA60VXIAa WSDUX6PLFCRRDZKBI5ESD3 18BAZwdheehJtrSExbrT42 MjAgLSBUVUJVTEFSIEFERU 4QVGEuSHVDL3LLGDBLMHZC KAULK88FWOFEQfCPLIojXI SaL41dvONryOminGTyCG9f PTFDPNROUHWCHM6wRMTgIx KNTNRAXlHsLq1JIIYTK3HH AAQVDZllFSM7f5gfeJDaRG NzdGUxODAwMFxhbnNpXGRl FqiqgqrvFZQhYKF5bzFiLC NnKMccZJRdXYokYk2caSFg wHzfNoYdEBVpf3ijhfQRhx vydOj3p9upDTQrSaB4yDXh OFbbQ2ywzhXimPFzMQTcXS c3hH57WNMleW3btGArLPxk wuGwAbH0ZCtnWGOjAoO8VE MshGHgTLIeW8roNTUiIFwc JVPvJPrzpMTzNAY2bXvzh2 X4jIDsaTRnuMpkUuOgGnFy IqCOn9McUGg7rUszL4UlGX ZoTuV2lNUsGDOcAJplCKPx GXHaogN2xL73TEqfyzZ2lH Yeq6Dto09gq191nK7ncLQi NSC9AEKfJSOfsMVmWWDvXF E8TKGfnKUtW0yvZONwQT6i hdxoPYrcBGbyJNXkaXM4FJ LplVWfC8PiTNIkISyyLJBd tss1WiHvIq0wvWEduFfuGK gad9sxn3ncsJCuJau2UEFg UzXaFmovLPywy4Njf5aqRG Cxwc2lEJP5vGJnfPxpt0D3 gFQaOHAxcFElZPSrGI5ipH KoCNJjiB8yerayHJAyEhUc zvyeGXDddZwkgiPaJw6onA qlBPW2YEbgT7zvbK1pVtO0 FCntO3ariS5eSQx3OVylEY SrxMU8iiI1TGLncVXeD5Ik lN4aAQZvDU0infh8b4dnLJ X5ZYcmXODhDsD0uzU2BOQi vNSpVEKdaLqlWRywe494GE N6ByZjSTPvz5NvL7ZtaRxz R88wrVsjF47zCFEmxCnmiJ 1riLaarX2lMxYbTzYnRAsn vYjnPG3nZRKxD9jrqUIaMH CmIZMfO3bcFyHyfS8hlUyf QObjsjMsXRIgSuo9ILEnnR BvOMFrAlo9GDFkSFPaD78c ecqmBUH9xO5xm8uuo4RbPJ eaUEG2BQPep07gNEwaneH7 IPnbBh27DIukFIF3RBdrLC J9fQ== COMMENT (test code = x9bmcZNwKWVjoDN7AuBtOK 3353) Ahd9ccv0BafQHyuQAuONdz jXBjmzPaue03oWN2eN94JL 1vYRExWdF4QTQhaeU0Rze7 EUDzOVUrmKIzS345d0sfq3 pynxUsqWY3rYhiQAMnyaay TwN3ILgnOPAynteoCSh1UL eqOQZveYK9JMCprZKdT8Lr ITSqZY9jafi5IBO7MHyeWH AlVtS7JXJupWGlXBDwvAuw ELykw467FDH4VlRkYZHyid ScrHcdhK9yGfXpPOVDzLAc wCReq1XfoC0sWOXdnQbuua MdTO4hbnnzgfXuwNJ0eKOf R4Zmaa25BQMbVIReb7Pwg0 XbRLT8FPV2dpPelgYlhAAn lWFzET9vrBYfHNMuWhP7hB Oou7CiD4eyXX0dUH9vL0M6 aXZlIGZvciBoaWdoIGdyYW AyNBI9n2YpZMSeAP7vBm4y h3VxqkJfeYZkzHruRY2ahA XnoyNemySkd6s9VVPhWXAn o5HiqpCtbp7mHVCdtyJzKO UhTbOEm39nTRBeLGH8kcOh FT3pHA41Q57pFJsmoPTboU Coh1VtCJO9kzXuBMqlVjMv SiQhvECvmUqlepbwHG64J4 9zYWUpIGFyZSBhbHNvIGFw aDAbQ2hlnAMeHjogFKHgeI FyIElOVFJBREVQQVJUTUVO LDJJVJYLNaVAXTO5CPHlGj IIWXFzTKz2RE4JUJYnTZPP xv7wUMM7eTAwVIQlxiYffy FuZCBNRFxwYXJ9 CPT Code(s) (test code n4dxsVBhEOBojTN8AwBiBU = 3357) Hkx1bzm7ZdvKVilWMwIKuv rZXytdXfrb74dIJ4jO59DD 0aGARxQdE8SVApvbN4Jzm4 BNAhHHRjrDKeA961f9mqa5 dnxuCeiVO6zZwxZZWsyllb OlY3FMkrPMJbbybwOIu4UQ puTKFcbWK9HZAcaIXrQ7Vh RFLaZN8ckvg1ELO7LZidZX WwLzQ6EHPmoZDuAFRygDbe XTmcv310YLU5EdWkPDCbbx IyyEscyL1eUcPwZKX6ELEp W7rgFTR5 CLINICAL HISTORY (test l1hskYYuHTJdxQS9CoXiUC code = 3356) Ksk5euu1MwdQKefRZzXMdk tLGwrbNweu18rNJ1uN30MO 6nTVGoHhR0OUQcbcN4Gvk2 GUQzDFRrxJDcL913x9dxm8 iuisEnpXH2YZHrZMGeF9Sp EC1kWBHvyIBeU96vfPAlZG J6YADmYJNqzCBcTBQsHDQ6 IBKitNJtR2wdDOQzIF3msp cdNFqfSUynHPDgpTP5SAJh zLOdZ2MeIKIbKOeuGECugm w3CpFdOg1dfTYmqKgdZAsq YXJkXHJpMVxwbGFpblxmcz TkHRLcMQCRkBM1nRCmVVNk PR5usIRxy6JvQ85om34bpM FyfQ== GROSS DESCRIPTION (test f6sceQWfRJOhrZKIHUMgR8 code = [id number]) kqijBjSLBotCVaB7Gbyskz QSvaVA2sVW9uqPqigMPqpE IqCQ3GUYFhZpYfEEHbhQMp btZxWgTaTDVyiXAgmOS0PU BwBU5naqqoGEriOQciCGCg zgH2XHGgwUOaN7SlZJGcTN 2pmnqqXYC6JHaxcB6wlcGK WeehSj7muJYpvDimDgXxFa NoYXJzZXQwXGZuaWwgQXJp TSt9sT2ZYthtU93ik9P2Mt h1DEHuKANoF9EyQO3xYJFb dOVuV47NHldgZFM5HVPTRq mcRNBsCM7Lq1opNZCujHIr MMW3ACmyxCWvEHOfIHOhMU t5NERuUNhbmELfXX0sbMck UgtpcLcio6RqaQLkZNwcUR UwKAIlVNdyUKQzOM0KSiEi SIYoKzPkCHUbDWg3HVz1WY 9WUyAiICAyOTcyNjUzNSIg RIg5ZSkmHG4CBLWpSiAjIg MmLJV1FEQ2ACGnNWVbHxFp XGYgQXJpYWwgXFxmbCBcXG 1goXrygZOudfZESmOKf2o9 pTfyC79yp35xBHCIfgHhf8 ZlcnNlLlxwYXIgDQpcZXBp L62qk9BQv7IcPH1WYBd4oy MxohegdS0lJGAgdlZcTLrg qTRfB7zpC4XdNMXdOiJrQe GgJKo8JLAdzY2mSz2mqGJq cE4pzYXsYQqiKIY4tSLmCS PoBQOfBQZuGF36ZLsBUZQr bmFtZSwgbWVkaWNhbCByZW NvcmQgbnVtYmVyIGFuZCBc kYcdChAvUQm7M6RmCY0zja Hsc4HwE76ir27cbV3huBJf MXwtRCSpEw42HOohLP75XC fpRY26MRGuLHIaU5OqB8H1 RBSfYzS0DC9alBhvttaesG 6frWMqoXAxz58spWJ1aRIt cDRwCGXFkLCcfC7fgChnMB StRWfcGM60VRKwibS2cLKr QC0fXPYbBEEorCDimM5zum wgdGhlIHJhZGlhbCBtYXJn kE7aZ1Alkm72NUMkHZAvo2 Csj0QbNiQsOOgqRAcmSV17 wIHkXYVqSURdNCWnJA8dgj dpbiBpcyBpbmtlZCBibGFj ayBhbmQgdGhlIHNwZWNpbW AnXUkgZMXpvDasHXn0WCE0 Ye3anELsXGTiznEtk2sov4 epCkzqsH6kBIqecG2zJRHs N2Gnw77gV40gDXzubB2yAB IlUgFRpEc4tAOhQPCswBQu kCPmEDGrMQrbSR01o4bscQ 5lIEEyLUEzOiAxIGZyYWdt HN34XVBxGKCwMOudxKPaTN R4zK7sRCNojZtfGJYZDDha MSBmcmFnbWVudCwgYmlzZW E8VYWmhJvxWDPXJXifENBy peMizTWhfNajBrycCYL2GV WytQOdSF0DBLMiljHWYaQr uNWlYDYwI1TrnRiskvhmTH MeZNjXEVzWI4XEGYhnNRMp HBetF1OsEAYoDuOtKHkqeD dpuL5nWLNdJ77en4RQz9Sa LOSqMCgxs1popEvwa6BeqF CuVFouEENnsDEhKEiflZ0o PeBlx2lmvIq2DEcudgC4NL Khud2LWkkjnE4zPdThe6pn qXx6KEUWIxgualL0l8uqwD zmk0WuiWJgXO4INl5= MICROSCOPIC DESCRIPTION b0dtfYSrEMTibKF8FoAdCW (test code = 3371) Wsx3anf4HkrFVjaBPgMJys rITtokZjsk58jKQ3uH13AM 4uVRSsKxN8WCBeqsX4Akj5 POPcTTOmmNFrO731z2nnh3 lgxzDopDQ9yStkJJHzrhbe SzL6JBqpAHCgsgdrKZj2YS lwYWLpgBL8YSOoiQHnB2Aq YZHcTY4wlxz7TYI2IEbiOD MbRqE7MUYisMLyHYGutGbi CTlzb130ZJW0BkHpHRKkjm FinNqjlB9eJnBgEHNOPKOd c2EuJHSlYEXgibesIPClLK Bhcn0= Gross assessment was [facility] performed at ([facility], = 2777) Department of Pathology, [address] [place] [address], Technical component was [facility] performed at ([facility], = 2778) Department of Pathology, [address] [place] [address], Professional component 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 Due to the fragmented nature of the specimen, the radial margin cannot be assessed. The identifiable deep margin is inked black and the specimen is entirely submitted as follows:Section codeA1: Multiple smaller fragmentsA2-A3: 1 fragment, serially sectionedA4: 1 fragment, bisec tedA5: 1 fragment, bisectedPiSOLANGE [place], HT (ASCP)Performed [facility],Department of Pathology, [address] [place] [address], [facility], [facility] of [facility]ology, [address] [place] [address], [facility], Department of Pathology, [address] [place] [address], SDM-Glucose [id number] 11:15:21 Test Item Value Reference Range Interpretation Comments POC-Glucose Meter (test 136 mg/dL 70-110 H : TE STED AT [facility] code = 1538) [address] [place] [address], [facility] 30: Sugar Cane Planter/Techni tutu ID = [id number] for Horobertan, Flora Lab Interpretation (test Abnormal code = 90257-3) [facility] [id number] 11:15:21 Test Item Value Reference Range Interpretation Comments POC-Glucose Meter (test 136 mg/dL 70-110 H : TE STED AT [facility] code = 1538) [address] [place] [address], [facility] 30: Sugar Cane Planter/Techni tutu ID = [id number] for Hooton, Flora Lab Interpretation (test Abnormal code = 00306-3) [facility]-GLUCOSE [id number] 11:15:21 Test Item Value Reference Range Interpretation Comments POC-GLUCOSE METER 136 mg/dL 70-110 H : TESTED A T [facility] 6720 ([facility]) (test code = [place], 1538) [address]: Sugar Cane Planter/Techni tutu ID = [id number] for Celestino brinkmassimoFlora
[2022-08-07 01:05] LABS: Absolute Lymphocytes (CBC) 4.3 K/uL (0.7-4.9); Hematocrit 45.3 % (39.6-49.0); Lymphocytes % 25.4 % (15.3-44.8); MCV 94.2 fL (80-100); MPV 9.1 fL (7.6-11.3)
[2022-08-07] MEDS ORDERED: MORPHINE 4 MG/ML SYR ONE ×2 (01:07→02:44)
[2022-08-07] MEDS ORDERED: ONDANSETRON 4 MG/2 ML VIAL ONE ×2 (01:07→04:33)
[2022-08-07] MEDS ORDERED: FAMOTIDINE 20 MG/2 ML VIAL IV ONE (01:07)
[2022-08-07] MEDS ORDERED: NA CHLORIDE 0.9% 1,000 ML ONE (01:07)
[2022-08-07 01:19] LABS: SARS-CoV-2 Antigen Rapid Res Negative (Negative)
[2022-08-07 01:26] LABS: Albumin 3.4 g/dL (3.4-5.0); Bilirubin Total 0.3 mg/dL (0.2-1.0); Potassium 4.1 mmol/L (3.5-5.1); Protein, Total 7.3 g/dL (6.4-8.2)
--- NOTE | 2022-08-07 03:10 | ER ---
Nurse's Notes [facility] Name: Anish Leon Age: 72 yrs Sex: Male : 1950 Arrival Date: 08/06/2022 Time: 23:39 Bed 7 Private MD: Diagnosis: Acute pancreatitis without necrosis or infection, unspecified Presentation: 08/07 00:16 Chief complaint: Patient states: I have had a pancreatitis flare up for the past 3 days jb4 with nausea that comes and goes. Coronavirus screen: At this time, the client does not indicate any symptoms associated with coronavirus-19. Ebola Screen: No symptoms or risks identified at this time. Initial Sepsis Screen: Does the patient meet any 2 criteria? No. Patient's initial sepsis screen is negative. Does the patient have a suspected source of infection? Yes: Acute abdominal pain. Risk Assessment: Do you want to hurt yourself or someone else? Patient reports no desire to harm self or others. Onset of symptoms was August 07, 2022. Transition of care: patient was not received from another setting of care. 00:16 Method Of Arrival: Wheelchair jb4 00:16 Acuity: DESHAWN 3 jb4 Historical: - Allergies: 00:17 Sulfa (Sulfonamide Antibiotics); jb4 - Home Meds: 00:17 metformin 500 mg Oral tab 2 tabs 2 times per day [Active]; Glipizide Oral [Active]; jb4 losartan oral [Active]; Metoprolol Tartrate Oral [Active]; - PMHx: 00:17 Diabetes - NIDDM; Diverticulitis; intestinal obstruction; MRSA; Pancreatitis; jb4 depression; - PSHx: 00:17 colon resection; left knee; right AKA; Splenectomy; jb4 - Immunization history:: Adult Immunizations up to date. - Social history:: Smoking status: Patient denies any tobacco usage or history of. Patient/guardian denies using alcohol. - Family history:: not pertinent. - Hospitalizations: : No recent hospitalization is reported. Screenin:20 Abuse screen: Denies threats or abuse. Nutritional screening: No deficits noted. jb4 Tuberculosis screening: No symptoms or risk factors identified. Fall Risk None identified. Assessment: 00:20 General: Appears in no apparent distress. comfortable, Behavior is calm, cooperative, jb4 appropriate for age. Pain: Complains of pain in abdomen Pain does not radiate. Pain currently is 9 out of 10 on a pain scale. Neuro: Level of Consciousness is awake, alert, obeys commands, Oriented to person, place, time, situation. Cardiovascular: Patient's skin is warm and dry. Respiratory: Airway is patent Respiratory effort is even, unlabored, Respiratory pattern is regular, symmetrical. GI: Abdomen is flat, non-distended, Reports upper abdominal pain, nausea. : No signs and/or symptoms were reported regarding the genitourinary system. EENT: No signs and/or symptoms were reported regarding the EENT system. Derm: Skin is intact, Skin is pink, warm \T\ dry. Musculoskeletal: Circulation, motion, and sensation intact. Range of motion: intact in all extremities. 01:56 Reassessment: Patient appears in no apparent distress at this time. Patient and/or jb4 family updated on plan of care and expected duration. Pain level reassessed. Patient is alert, oriented x 3, equal unlabored respirations, skin warm/dry/pink. 03:00 Reassessment: No changes from previously documented assessment. Patient and/or family vc1 updated on plan of care and expected duration. Pain level reassessed. Patient is alert, oriented x 3, equal unlabored respirations, skin warm/dry/pink. 04:33 Reassessment: Patient appears in no apparent distress at this time. Patient and/or jb4 family updated on plan of care and expected duration. Pain level reassessed. Patient is alert, oriented x 3, equal unlabored respirations, skin warm/dry/pink. Pt admitted to ER hold. Vital Signs: 00:16 BP 156 / 92; Pulse 81; Resp 18; Temp 98.2(TE); Pulse Ox 96% on R/A; Weight 93.89 kg jb4 (R); Height 6 ft. 0 in. (182.88 cm) (R); Pain 9/10; 01:30 BP 173 / 90; Pulse 75; Resp 16; Pulse Ox 95% on R/A; jb4 02:15 BP 133 / 86; Pulse 72; Resp 16; Pulse Ox 98% on R/A; vc1 02:45 BP 168 / 92; Pulse 72; Resp 17; Pulse Ox 95% ; vc1 03:46 BP 161 / 78; Pulse 65; Resp 17; Pulse Ox 97% on R/A; vc1 00:16 Body Mass Index 28.07 (93.89 kg, 182.88 cm) jb4 ED Course: 08/06 23:39 Patient arrived in ED. ja2 23:46 Pete Dickinson MD is Attending Physician. rn 08/07 00:15 Win Lu, RN is Primary Nurse. jb4 00:17 Triage completed. jb4 00:17 Arm band placed on right wrist. jb4 00:20 Patient has correct armband on for positive identification. Bed in low position. Call jb4 light in reach. Side rails up X 1. 00:20 Client placed on continuous cardiac and pulse oximetry monitoring. NIBP monitoring jb4 applied. air sampling and monitoring on. 01:00 Inserted saline lock: 20 gauge in right forearm, using aseptic technique. Blood oe collected. 01:00 SARS RAPID Sent. oe 02:08 CT Abd/Pelvis - IV Contrast Only In Process Unspecified. EDMS 03:09 Tha Horne MD is Hospitalizing Provider. rn 03:14 Tristen Morris MD is Hospitalizing Provider. rn 04:30 No provider procedures requiring assistance completed. Patient admitted, IV remains in jb4 place. 07:05 Primary Nurse role handed off by Win Lu, RN bp 07:05 Sourav Alford, AMANDO is Primary Nurse. bp Administered Medications: 01:15 Drug: NS 0.9% 1000 ml Route: IV; Rate: 1 bolus; Site: right wrist; tw5 02:15 Follow up: Response: No adverse reaction; IV Status: Completed infusion; IV Intake: jb4 1000ml 01:15 Drug: Pepcid (famotidine) 20 mg Route: IVP; Site: right wrist; tw5 01:45 Follow up: Response: No adverse reaction jb4 01:15 Drug: Zofran (Ondansetron) 4 mg Route: IVP; Site: right wrist; tw5 01:45 Follow up: Response: No adverse reaction jb4 01:15 Drug: morphine 4 mg Route: IVP; Infused Over: 4 mins; Site: right wrist; tw5 01:45 Follow up: Response: No adverse reaction; Marked relief of symptoms jb4 02:37 Drug: morphine 4 mg Route: IVP; Infused Over: 4 mins; Site: right wrist; jb4 03:00 Follow up: Response: No adverse reaction; Marked relief of symptoms jb4 03:55 Drug: Dilaudid (HYDROmorphone) 1 mg Route: IVP; Site: right forearm; vc1 05:38 Follow up: Response: No adverse reaction; Marked relief of symptoms jb4 03:55 Drug: D5-1/2 NS with KCl 20 mEq/L 1000 ml Route: IV; Rate: 125 ml/hr; Site: right vc1 forearm; 05:38 Follow up: Response: No adverse reaction; IV Status: Infusion continued upon admission jb4 04:31 Drug: Zofran (Ondansetron) 4 mg Route: IVP; Site: right forearm; tw5 05:38 Follow up: Response: No adverse reaction jb4 Medication: 04:30 VIS not applicable for this client. jb4 Intake: 02:15 IV: 1000ml; Total: 1000ml. jb4 Outcome: 03:09 Decision to Hospitalize by Provider. rn 04:30 Admitted to ER Hold. [facility] see [facility] for further documentation. jb4 04:30 Condition: stable 04:30 Discharge instructions given to patient, Instructed on the need for admit, Demonstrated understanding of instructions. 18:23 Patient left the ED. iw Signatures: Dispatcher [employer] EDMS Shara Bautista RN RN iw Nieto, Roman, MD MD rn Bryson, James, RN RN jb4 Nicko Frost Brian, RN RN bp Alexander, Jessica ja2 Wood, Tiffany tw5 Susie Arnold RN RN vc1 Corrections: (The following items were deleted from the chart) 05:39 05:38 Response: No adverse reaction; Marked relief of symptoms jb4 jb4
--- NOTE | 2022-08-07 03:10 | EDPHYS ---
[facility]: Anish Leon Age: 72 yrs Sex: Male : 1950 Arrival Date: 08/06/2022 Time: 23:39 Bed 7 Private MD: ED Physician Pete Dickinson HPI: 08/07 00:05 This 72 yrs old Male presents to ER via Unassigned with complaints of Abdominal Pain. rn 00:05 The patient presents with abdominal pain in the epigastric area. Onset: The rn symptoms/episode began/occurred 3 day(s) ago. The symptoms radiate to back. Associated signs and symptoms: Pertinent positives: nausea, Pertinent negatives: blood in stools, chest pain, constipation, diarrhea, dysuria, fever. Modifying factors: The symptoms are alleviated by nothing, the symptoms are aggravated by touching the area. Severity of pain: At its worst the pain was moderate in the emergency department the pain is unchanged. The patient has experienced similar episodes in the past. The patient has not recently seen a physician. Pt with hx of pancreatitis, multiple admissions for this, states no clear etiology. Non-drinker. REports 3 days of epigastric abd pain assoc with nausea, not improving so came in. Identical to previous episodes, radiates to back. No blood in stool. Having normal BM, last BM today.. Historical: - Allergies: 00:17 Sulfa (Sulfonamide Antibiotics); jb4 - Home Meds: 00:17 metformin 500 mg Oral tab 2 tabs 2 times per day [Active]; Glipizide Oral [Active]; jb4 losartan oral [Active]; Metoprolol Tartrate Oral [Active]; - PMHx: 00:17 Diabetes - NIDDM; Diverticulitis; intestinal obstruction; MRSA; Pancreatitis; jb4 depression; - PSHx: 00:17 colon resection; left knee; right AKA; Splenectomy; jb4 - Immunization history:: Adult Immunizations up to date. - Social history:: Smoking status: Patient denies any tobacco usage or history of. Patient/guardian denies using alcohol. - Family history:: not pertinent. - Hospitalizations: : No recent hospitalization is reported. ROS: 00:05 Constitutional: Negative for fever, chills, and weight loss, Eyes: Negative for injury, rn pain, redness, and discharge, Neck: Negative for injury, pain, and swelling, Cardiovascular: Negative for chest pain, palpitations, and edema, Respiratory: Negative for shortness of breath, cough, wheezing, and pleuritic chest pain, Abdomen/GI: Negative for vomiting, diarrhea, and constipation Back: Negative for injury MS/Extremity: Negative for injury and deformity, Skin: Negative for injury, rash, and discoloration, Neuro: Negative for headache, weakness, numbness, tingling, and seizure. Exam: 00:05 Constitutional: This is a well developed, well nourished patient who is awake, alert, rn appears uncomfortable Head/Face: Normocephalic, atraumatic. Eyes: Periorbital areas with no swelling, redness, or edema. Cardiovascular: Regular rate and rhythm. No pulse deficits. Respiratory: No increased work of breathing, no retractions or nasal flaring. Abdomen/GI: soft, + epigastric tenderness without peritoneal signs Skin: Warm, dry MS/ Extremity: Pulses equal, no cyanosis. + RLE AKA. Neuro: Awake and alert, GCS 15 Vital Signs: 00:16 BP 156 / 92; Pulse 81; Resp 18; Temp 98.2(TE); Pulse Ox 96% on R/A; Weight 93.89 kg jb4 (R); Height 6 ft. 0 in. (182.88 cm) (R); Pain 9/10; 01:30 BP 173 / 90; Pulse 75; Resp 16; Pulse Ox 95% on R/A; jb4 02:15 BP 133 / 86; Pulse 72; Resp 16; Pulse Ox 98% on R/A; vc1 02:45 BP 168 / 92; Pulse 72; Resp 17; Pulse Ox 95% ; vc1 03:46 BP 161 / 78; Pulse 65; Resp 17; Pulse Ox 97% on R/A; vc1 00:16 Body Mass Index 28.07 (93.89 kg, 182.88 cm) jb4 MDM: 08/06 23:46 Patient medically screened. rn 08/07 03:07 Differential diagnosis: non-specific abd pain, pancreatitis, Peptic Ulcer Disease. Data rn reviewed: vital signs, nurses notes, lab test result(s), radiologic studies, CT scan, and as a result, I will admit patient. Counseling: I had a detailed discussion with the patient and/or guardian regarding: the historical points, exam findings, and any diagnostic results supporting the discharge/admit diagnosis, lab results, radiology results, the need for further work-up and treatment in the hospital. Response to treatment: the patient's symptoms have mildly improved after treatment, and as a result, I will admit patient. Admission orders: after a detailed discussion of the patient's condition and case, the admit orders are written by me. 08/06 23:48 Order name: CBC with Diff; Complete Time: : 08/06 23:48 Order name: CMP; Complete Time: rn 08/06 23:48 Order name: Lipase; Complete Time: rn 08/06 23:57 Order name: SARS RAPID; Complete Time: 08/07 06:37 Order name: Glucose, Ancillary Testing [facility] 08/07 07:26 Order name: Glucose, Ancillary Testing [facility] 08/06 23:48 Order name: CT Abd/Pelvis - IV Contrast Only 08/07 11:45 Order name: Glucose, Ancillary Testing [facility] 08/07 16:37 Order name: Glucose, Ancillary Testing [facility] 08/06 23:48 Order name: IV Saline Lock; Complete Time: 01: rn 08/06 23:48 Order name: Labs collected and sent; Complete Time: 08/07 03:52 Order name: NPO; Complete Time: 04:02 la1 Administered Medications: 01:15 Drug: NS 0.9% 1000 ml Route: IV; Rate: 1 bolus; Site: right wrist; tw5 02:15 Follow up: Response: No adverse reaction; IV Status: Completed infusion; IV Intake: jb4 1000ml 01:15 Drug: Pepcid (famotidine) 20 mg Route: IVP; Site: right wrist; tw5 01:45 Follow up: Response: No adverse reaction jb4 01:15 Drug: Zofran (Ondansetron) 4 mg Route: IVP; Site: right wrist; tw5 01:45 Follow up: Response: No adverse reaction jb4 01:15 Drug: morphine 4 mg Route: IVP; Infused Over: 4 mins; Site: right wrist; tw5 01:45 Follow up: Response: No adverse reaction; Marked relief of symptoms jb4 02:37 Drug: morphine 4 mg Route: IVP; Infused Over: 4 mins; Site: right wrist; jb4 03:00 Follow up: Response: No adverse reaction; Marked relief of symptoms jb4 03:55 Drug: Dilaudid (HYDROmorphone) 1 mg Route: IVP; Site: right forearm; vc1 05:38 Follow up: Response: No adverse reaction; Marked relief of symptoms jb4 03:55 Drug: D5-1/2 NS with KCl 20 mEq/L 1000 ml Route: IV; Rate: 125 ml/hr; Site: right vc1 forearm; 05:38 Follow up: Response: No adverse reaction; IV Status: Infusion continued upon admission jb4 04:31 Drug: Zofran (Ondansetron) 4 mg Route: IVP; Site: right forearm; tw5 05:38 Follow up: Response: No adverse reaction jb4 Disposition Summary: 08/07/22 03:09 Hospitalization Ordered Hospitalization Status: Inpatient Admission rn Condition: Stable rn Problem: an acute exacerbation rn Symptoms: have improved rn Bed/Room Type: Standard rn Provider: Tristen Morris(08/07/22 03:14) rn Location: Telemetry/MedSurg (Inpatient)(08/07/22 16:33) em1 Room Assignment: [facility](08/07/22 17:28) em1 Diagnosis - Acute pancreatitis without necrosis or infection, unspecified rn Forms: - Medication Reconciliation Form rn - SBAR form rn Signatures: Dispatcher [employer] EDMS Pete Dickinson MD MD rn Martinez, Eric em1 Bam Padgett FNP-C FNP-ClaEileen Escalante RN RN cg Bryson, James, RN RN jb4 Wood, Tiffany tw5 Susie Arnold RN RN vc1 Corrections: (The following items were deleted from the chart) 03:14 03:09 Tha Horne rn rn 04:08 03:09 Telemetry/MedSurg (Inpatient) rn cg 04:08 03:09 cynthia cg 16:33 04:08 [facility] ER HOLD cg em1 16:33 04:08 ERHOLD- cg em1 17:28 16:33 411 em1 em1
[2022-08-07] MEDS ORDERED: HYDROMORPHONE HCL 1 MG/ML INJ ONE ×4 (04:01→16:43)
--- NOTE | 2022-08-07 04:01 | P.HP ---
Certification for Inpatient Patient admitted to: Inpatient With expected LOS: >2 Midnights Patient will require the following post-hospital care: None Practitioner: I am a practitioner with admitting privileges, knowledge of patient current condition, hospital course, and medical plan of care. Services: Services provided to patient in accordance with Admission requirements found in Title 42 Section 412.3 of the Code of Federal Regulations Patient History Date of Service: 08/07/22 History of Present Illness: 72-year-old male with history of chronic pancreatitis, diabetes mellitus type [id number], hypertension, hyperlipidemia presents emergency department for epigastric pain radiating to his back. He reports that his pain began on the and has been steadily increasing reports pain is similar to previous bouts of pancreatitis. He is evaluated here in the emergency department his labs were significant for elevated lipase level 920, glucose 255 white blood cell count 16.9 CT scanning performed shows acute on chronic pancreatitis no signs of cyst/pseudocyst or necrotizing pancreatitis on CT. No other source of infection identified. Will admit for further evaluation and management of acute on chronic pancreatitis. Allergies sertraline [From Zoloft] Allergy (Verified 06/06/20 02:10) Hives/Rash Home Medications: Bupropion HCl [Wellbutrin Xl] 150 mg PO DAILY 04/09/22 Glipizide [Glipizide ER] 10 mg PO BID 04/09/22 Losartan Potassium 25 mg PO BEDTIME 04/09/22 Metformin HCl [Metformin HCl ER] 750 mg PO BID 04/09/22 Metoprolol Tartrate 50 mg PO BID 04/09/22 Aspirin [Aspirin EC 81 MG] 81 mg PO DAILY #30 tab 07/19/22 Atorvastatin Calcium [Lipitor] 10 mg PO BEDTIME #30 tab 07/19/22 Cyanocobalamin (Vitamin B-12) [Vitamin B-12] 1,000 mcg PO DAILY #30 07/19/22 Folic Acid 1 mg PO DAILY #30 tab 07/19/22 Gabapentin 300 mg PO TID 07/19/22 [place]-3 Fatty Acids [[place]-3] 1,000 mg PO BID #60 cap 07/19/22 Pantoprazole [Protonix Tab*] 40 mg PO DAILY 07/19/22 - Past Medical/Surgical History Diabetic: Yes -: HTN -: Diabetes mellitus -: neuropathy -: arthritis -: neuropathy -: Pancreatitis -: BPH -: cholecystectomy -: spleenectomy -: lumbar surgery -: left knee replacement -: 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 -: appendectomy -: hemorrhoid surgery -: colectomy Psychosocial/ Personal History: Patient lives at home with his family - Family History Mother -: Heart disease Father -: Lung disease, Liver disease grandfather -: Other (see notes) Notes: liver cirrhosis - Social History Smoking Status: Never smoker Alcohol use: No CD- Drugs: No Caffeine use: No Place of Residence: Home Review of Systems 10-point ROS is otherwise unremarkable Gastrointestinal: Nausea, Abdominal Pain Physical Examination - Physical Exam General: Alert, In no apparent distress, Oriented x3 HEENT: Atraumatic, PERRLA, Mucous membr. moist/pink, EOMI, Sclerae nonicteric Neck: Supple, 2+ carotid pulse no bruit, No LAD, Without JVD or thyroid abnormality Respiratory: Clear to auscultation bilaterally, Normal air movement Cardiovascular: Regular rate/rhythm, Normal S1 S2 Capillary refill: <2 Seconds Gastrointestinal: Normal bowel sounds, Tenderness (Mild epigastric tenderness) Musculoskeletal: No tenderness Integumentary: No rashes Neurological: Normal speech, Normal strength at 5/5 x4 extr, Normal tone, Normal affect Lymphatics: No axilla or inguinal lymphadenopathy - Studies Laboratory Data (last 24 hrs) 08/07/22 00:55: Sodium 135 L, Potassium 4.1, BUN 16, Creatinine 0.88, Glucose 255 H, Total Bilirubin 0.3, AST 18, ALT 24, Alkaline Phosphatase 137 H, Lipase 920 H 08/07/22 00:55: WBC 16.90 H, Hgb 14.8, Hct 45.3, Plt Count 340 Assessment and Plan - Plan Assessment: Acute on chronic pancreatitis Diabetes mellitus type [id number] with hyperglycemia Hypertension Plan: Acute on chronic pancreatitis: N.p.o., IVF, as needed pain medications and antiemetics, trend lipase level obtain lipid panel. Unknown etiology patient does not drink alcohol reportedly is status post cholecystectomy, will need to review medications for possible contributing factors. Has had previous MRCP's which have been negative. Diabetes mellitus type 7ufy-ipyitif-xeglldble with hyperglycemia: Patient n.p .o. at this time continue maintenance fluids containing dextrose with every 6 hours Accu-Cheks and sliding scale insulin Hypertension: Hold oral medications at this time PRN Medications by IV. DVT PPX: Lovenox Code status: Full Discharge Plan: Home Plan to discharge in: 48 Hours - Advance Directives Does patient have a Living Will: No Does patient have a Durable POA for Healthcare: No - Code Status/Comfort Care Code Status Assessed: Yes (Full code) Critical Care: No Time Spent Managing Pts Care (In Minutes): 70
[2022-08-07] MEDS ORDERED: D5.45NS W/KCL 20MEQ 1,000 ML IV ONE (04:03)
[2022-08-07] MEDS ORDERED: ONDANSETRON 4 MG/2 ML VIAL IV PRN (04:35)
[2022-08-07] MEDS ORDERED: D5.45NS W/KCL 20MEQ 1,000 ML IV SCH (04:35)
[2022-08-07 04:43] VITALS: BMI 28.0
[2022-08-07] MEDS: INSULIN -REGULAR HUMAN 50 UNIT/0.5 ML ML SQ SCH ×4 (07:24→20:45)
[2022-08-07] MEDS: HYDROMORPHONE HCL 1 MG/ML INJ IV PRN ×4 (08:00→20:45)
[2022-08-07] MEDS ORDERED: Oxycodone HCl/Acetaminophen 1 TAB TAB PO PRN (08:58)
[2022-08-07] MEDS: ENOXAPARIN 40 MG/0.4 ML SQ SCH (09:00)
[2022-08-07] MEDS: NACHLORIDE 0.45% 1,000 ML IV SCH ×2 (09:00→18:57)
--- NOTE | 2022-08-07 10:33 | RAD REPORT ---
EXAM DESCRIPTION: CT - Abdomen Pelvis W Contrast - 08/07/2022 2:06 am CLINICAL HISTORY: 72 years, Male, abdominal pain, hx of pancreatitis COMPARISON: 04/05/2022 TECHNIQUE: Contrast-enhanced images of the abdomen and pelvis were performed utilizing 5 mm slice th ickness at 5 mm interval reconstruction from the lung bases to the ischial tuberosities after the adm inistration of IV contrast . In addition multiplanar reformats in the coronal and sagittal plane were obtained and reviewed. This exam was performed according to our departmental dose-optimization protocol, which includes auto mated exposure control, adjustment of the mA and/or kV according to patient size and/or use of iterat mark reconstruction technique. FINDINGS: The lung bases demonstrate to be clear. There are minimal coronary artery calcifications The liver and adrenal glands demonstrate to be unremarkable, no focal lesions are noted. Surgical clips within the gallbladder fossa correspond to previous cholecystectomy. There is a status post splenectomy. The pancreas demonstrated presence be atrophic with opacification suggesting changes of chronic pancr eatitis. Minimal haziness surrounding the pancreatic head/body could correspond to superimposed acute pancreatitis. The kidneys demonstrate normal uptake of contrast media. No evidence for nephrolithiasis and/or hydro nephrosis. There are bilateral simple renal cysts. No follow-up is recommended. Grossly the unopacified stomach, small bowel and large bowel demonstrate to be within normal limits. There is no evidence for bowel dilatation/or free air. There is mild fecal stasis. There is diverticulosis within the sigmoid colon. There is post surgical changes within the sigmoid colon. The appendix was not visualized although no significant inflammatory changes are seen within the righ t lower quadrant. The urinary bladder demonstrate to be unremarkable. The prostate gland is normal. The aorta demon strate atherosclerotic disease extending into the aortic bifurcation. There is no retroperitoneal l ymphadenopathy. There is no ascites. The bone windows demonstrated the presence of right sided posterior transpedicular screw fixation dev ice at L5/S1. IMPRESSION: Atrophic pancreas with opacification suggesting changes of chronic pancreatitis. Minimal haziness surrounding the pancreatic head/body could correspond to superimposed acute pancreatitis. Status post cholecystectomy and splenectomy. Sigmoid diverticulosis without evidence of acute diverticulitis. Mild fecal stasis. Right sided posterior transpedicular screw fixation device at L5/S1. Electronically signed by: Jeremiah Cohen MD 08/07/2022 2:48 AM CDT Due to temporary technical issues with the PACS/Fluency reporting system, reports are being signed by the in house radiologists without review as a courtesy to insure prompt reporting. The interpreting radiologist is fully responsible for the content of the report.
[2022-08-07] MEDS ORDERED: NACHLORIDE 0.45% 1,000 ML IV ONE (11:51)
[2022-08-07] MEDS ORDERED: ENOXAPARIN 40 MG/0.4 ML SQ ONE (11:51)
[2022-08-07] MEDS ORDERED: INSULIN -REGULAR HUMAN 50 UNIT/0.5 ML ML ONE (11:51)
[2022-08-08] MEDS: HYDROMORPHONE HCL 1 MG/ML INJ IV PRN ×2 (01:48→06:05)
[2022-08-08 06:25] LABS: Absolute Lymphocytes (CBC) 4.4 K/uL (0.7-4.9); Hematocrit 44.1 % (39.6-49.0); MCV 94.4 fL (80-100); MPV 9.4 fL (7.6-11.3); RBC Red Blood Cell Count 4.67 M/uL (4.33-5.43)
[2022-08-08] MEDS: ENOXAPARIN 40 MG/0.4 ML SQ SCH (08:25)
[2022-08-08] MEDS: INSULIN -REGULAR HUMAN 50 UNIT/0.5 ML ML SQ SCH (08:25)
--- NOTE | 2022-08-08 08:55 | P.DS ---
Admission Date: 08/07/22 Discharge Date: 08/08/22 Disposition: ROUTINE DISCHARGE Discharge Condition: FAIR Brief History of Present Illness: Patient is 72 years of age admitted with acute on chronic pancreatitis Hospital Course: He did well during the course of his stay at the time of discharge alert oriented responsive no new complaints was tolerating a diet abdomen very soft nontender no rebound positive bowel sounds had recurrent episodes of pancreatitis discharged home today after he is tolerated diet resume home medications to take pkzc-bap-enhfzwl pain medications to follow-up with primary care no change in meds labs unremarkable patient to advance diet at home as tolerated Vital Signs/Physical Exam: Temp Pulse Resp BP Pulse Ox 97.1 F 86 14 170/95 H 94 08/08/22 08:00 08/08/22 08:00 08/08/22 08:00 08/08/22 08:00 08/08/22 08:00 Laboratory Data at Discharge: WBC 12.80 K/uL (4.3-10.9) H 08/08/22 06:08 Hgb 14.3 g/dL (13.6-17.9) 08/08/22 06:08 Hct 44.1 % (39.6-49.0) 08/08/22 06:08 Plt Count 306 K/uL (152-406) 08/08/22 06:08 Sodium 135 mmol/L (136-145) L 08/07/22 00:55 Potassium 4.1 mmol/L (3.5-5.1) 08/07/22 00:55 BUN 16 mg/dL (7-18) 08/07/22 00:55 Creatinine 0.88 mg/dL (0.55-1.3) 08/07/22 00:55 Glucose 255 mg/dL (74-106) H 08/07/22 00:55 Total Bilirubin 0.3 mg/dL (0.2-1.0) 08/07/22 00:55 AST 18 U/L (15-37) 08/07/22 00:55 ALT 24 U/L (12-78) 08/07/22 00:55 Alkaline Phosphatase 137 U/L (45-117) H 08/07/22 00:55 Lipase 920 U/L (73-393) H 08/07/22 00:55 Home Medications: Glipizide [Glipizide ER] 10 mg PO BID 04/09/22 Losartan Potassium 25 mg PO BEDTIME 04/09/22 Metoprolol Tartrate 50 mg PO BID 04/09/22 Atorvastatin Calcium [Lipitor*] 10 mg PO BEDTIME #30 tab 07/19/22 Cyanocobalamin (Vitamin B-12) [Vitamin B-12] 1,000 mcg PO DAILY #30 07/19/22 Folic Acid 1 mg PO DAILY #30 tab 07/19/22 Gabapentin 300 mg PO TID 07/19/22 [place]-3 Fatty Acids [[place]-3] 1,000 mg PO BID #60 cap 07/19/22 Pantoprazole [Protonix Tab*] 40 mg PO DAILY 07/19/22 Ascorbate Calcium [Vitamin C] 1 tab PO DAILY 08/07/22 Docusate [Colace Cap*] 1 cap PO DAILY 08/07/22 Lipase/Protease/Amylase [Creon Dr 36,000 Unit Capsule] 2 cap PO TID 08/07/22 Magnesium Oxide [Magnesium] 1 tab PO DAILY 08/07/22 Metformin HCl 500 mg PO BID 08/07/22 Physician Discharge Instructions: Patient to follow-up with primary care or pain medications Diet: Regular Followup: Ruy Stock, DO [Primary Care Provider] -
[2022-08-09 01:14] VITALS: TEMP 98.2
[2022-08-09 01:25] VITALS: BP 161/78; O2SAT 97
== END 2022-08-08 09:28 | disposition home or self-care (01) ==
LOC: ER 23:32 → ERHOLD 08-07 03:53 → INTOOBSV 08-07 03:53 → 4TH 08-07 17:25
PROVIDERS: ADMIT Internal Medicine Sleep Medicine; ATTEND Internal Medicine Sleep Medicine
DX: K85.90 Acute pancreatitis without necrosis or infection, unspecified (principal); E11.65 Type 2 diabetes mellitus with hyperglycemia; I10 Essential (primary) hypertension; E78.5 Hyperlipidemia, unspecified; Z88.8 Allergy status to other drugs, medicaments and biological substances; Z82.49 Family history of ischemic heart disease and other diseases of the circulatory system; Z83.6 Family history of other diseases of the respiratory system; Z20.822 Contact with and (suspected) exposure to COVID-19
CPT/HCPCS: 85025 ×2; 36415 ×2; 82947 ×6; 83690; 80053; 74177; 99285; 87811; Q9967; J1815 ×3; J1650 ×2; J1170 ×7; J7030; J2405 ×2; G0378 ×3

== ENCOUNTER → 2023-11-20 | Emergency (ER) | payer MEDICARE ==
--- OUTSIDE RECORDS SUMMARY | 2023-11-20 20:31 | XMS REPORT | Clinical Summary ---
Author Name Unknown Organization [facility] Address [address] [place] [address] Care Team Providers Care Athletic Turf Worker Name Role Phone Spike Whyte MD Primary Care Provider Social History Tobacco Use Types Packs/Day Years Used Date Smoking Tobacco: Never Assessed Sex and Gender Information Value Date Recorded Sex Assigned at Not on file Gender Identity Not on file Sexual Orientation Not on file Plan of Treatment Health Maintenance Due Date Last Done Comments COVID-19 Vaccination (#1) 1950 Care Teams Athletic Turf Worker Relationship Specialty Start Date End Date Spike Whyte MD [address] [place] [address] PCP - General Gastroenterology, Hepatology and Nutrition 07/09/20
--- NOTE | 2023-11-20 22:29 | RAD REPORT ---
EXAM DESCRIPTION: USExtremity Venous Uni Ltd11/20/2023 9:36 pm CLINICAL HISTORY: left leg pain COMPARISON: None FINDINGS: Left common femoral, superficial femoral, greater saphenous, popliteal and posterior tibi al veins are compressible and demonstrate augmentation. Doppler demonstrates good flow. Patient has a palpable area left lateral calf. Ultrasound demonstrates an 8 millimeter echogenic stru cture within the subcutaneous tissue Grayscale, color and spectral analysis performed on all vessels IMPRESSION: No evidence of deep venous thrombosis involving the left lower extremity. 8 millimeter palpable area within the left lateral calf is echogenic. It may represent a lipoma or he matoma. Follow-up ultrasound in 6 weeks would be recommended for re-evaluation
--- NOTE | 2023-11-20 22:43 | EDPHYS ---
Physician Documentation [facility] Name: Anish Leon Age: 73 yrs Sex: Male : 1950 Arrival Date: 11/20/2023 Time: 20:28 Bed 11 Private MD: ED Physician Jameson Mendez HPI: 11/20 22:43 This 73 yrs old Male presents to ER via Wheelchair with complaints of Leg Pain. kb 22:43 Patient is a 73-year-old male who presents for pain to left leg that started today. kb States he noticed a knot in his leg as well so he was concerned about a blood clot. Reports history of TIA so he wanted to make sure that he did not have a clot. Historical: - Allergies: 21:07 Sulfa (Sulfonamide Antibiotics); hb - PMHx: 21:07 Depression; Diabetes - NIDDM; Diverticulitis; intestinal obstruction; MRSA; hb Pancreatitis; - PSHx: 21:07 left knee; colon resection; Splenectomy; right AKA; hb - Immunization history:: Adult Immunizations up to date. - Social history:: Smoking status: unknown. ROS: 22:44 Constitutional: Negative for fever, chills, and weight loss, kb 22:44 MS/extremity: Positive for pain, of the left leg, 22:44 All other systems are negative, Exam: 22:44 Constitutional: This is a well developed, well nourished patient who is awake, alert, kb and in no acute distress. Head/Face: Normocephalic, atraumatic. ENT: Moist Mucous membranes Cardiovascular: Regular rate Respiratory: Respirations even and unlabored. No increased work of breathing. Talking in full sentences Skin: Warm, dry with normal turgor. Normal color. Neuro: Awake and alert, GCS 15, oriented to person, place, time, and situation. Moves all extremities. Normal gait. 22:44 Musculoskeletal/extremity: Extremities: grossly normal except: noted in the left leg: pain, noted in the right leg: AKA, ROM: intact in all extremities, Circulation is intact in all extremities. Sensation intact. Vital Signs: 21:04 BP 149 / 87; Pulse 73; Resp 16; Temp 97.3; Pulse Ox 96% ; hb 22:25 BP 145 / 68; Pulse 80; Resp 16; Pulse Ox 96% ; pf1 MDM: 20:56 Patient medically screened. kb 22:43 Differential diagnosis: DVT, thrombophlebitis, cellulitis, abscess, neuropathy, lipoma. kb Data reviewed: vital signs, nurses notes. Counseling: I had a detailed discussion with the patient and/or guardian regarding the historical points, exam findings, and any diagnostic results supporting the discharge/admit diagnosis, radiology results, the need for outpatient follow up, a family practitioner, to return to the emergency department if symptoms worsen or persist or if there are any questions or concerns that arise at home. 11/20 21:07 Order name: US Extremity Venous Unilateral Ltd; Complete Time: 22:30 kb Administered Medications: No medications were administered Disposition Summary: 11/20/23 22:42 Discharge Ordered Notes: Location: Home kb Condition: Stable kb Diagnosis - Pain in left leg kb Followup: kb - With: Emergency Department - When: As needed - Reason: Worsening of condition Followup: kb - With: Private Physician - When: 2 - 3 days - Reason: Recheck today's complaints, Continuance of care, Re-evaluation by your physician Discharge Instructions: - Discharge Summary Sheet kb - Musculoskeletal Pain kb Forms: - Medication Reconciliation Form kb - Thank You Letter kb - Antibiotic Education kb - Prescription Opioid Use kb - Patient Portal Instructions kb - Leadership Thank You Letter kb Addendum: 11/22/2023 00:23 I was immediately available for consultation during this patient's visit. I did not e c2 personally see the patient or guide the patient's care.. Signatures: Dispatcher [employer] Luh Parra, MEAGAN-Nicanor RHODES-Pia Rogel, AMANDO RN Jameson Eduardo MD MD ec2
--- NOTE | 2023-11-20 22:43 | ER ---
Nurse's Notes [facility] Name: Anish Leon Age: 73 yrs Sex: Male : 1950 Arrival Date: 11/20/2023 Time: 20:28 Bed 11 Private MD: Diagnosis: Pain in left leg Presentation: 11/20 21:04 Chief complaint: Patient states: 3 DAYS LLE PAIN/EDEMA/ERYTHEMA. Coronavirus screen: At this time, the client does not indicate any symptoms associated with coronavirus-19. Ebola Screen: No symptoms or risks identified at this time. Initial Sepsis Screen: Does the patient meet any 2 criteria? No. Patient's initial sepsis screen is negative. Does the patient have a suspected source of infection? No. Patient's initial sepsis screen is negative. Risk Assessment: Do you want to hurt yourself or someone else? Patient reports no desire to harm self or others. Onset of symptoms is unknown. 21:04 Method Of Arrival: Wheelchair hb 21:04 Acuity: DESHAWN 3 hb Historical: - Allergies: 21:07 Sulfa (Sulfonamide Antibiotics); hb - PMHx: 21:07 Depression; Diabetes - NIDDM; Diverticulitis; intestinal obstruction; MRSA; hb Pancreatitis; - PSHx: 21:07 left knee; colon resection; Splenectomy; right AKA; hb - Immunization history:: Adult Immunizations up to date. - Social history:: Smoking status: unknown. Screenin:25 [facility] ED Fall Risk Assessment (Adult) History of falling in the last 3 months, pf1 including since admission No falls in past 3 months (0 pts) Confusion or Disorientation No (0 pts) Intoxicated or Sedated No (0 pts) Impaired Gait Yes (1 pt) Mobility Assist Device Used Yes (1 pt) Altered Elimination No (0 pt) Score/Fall Risk Level 0 - 2 = Low Risk Oriented to surroundings, Maintained a safe environment, Educated pt \T\ family on fall prevention, incl call for assistance when getting out of bed, Assessed \T\ reinforced patient's understanding of fall precautions, Provided non-skid footwear, Hourly rounding (assess needs \T\ fall precautionary measures) done, Used ambulatory aids as needed (educated on \T\ assisted with), Used gait belt as appropriate. 22:25 Abuse screen: Denies threats or abuse. Nutritional screening: No deficits noted. pf1 Tuberculosis screening: No symptoms or risk factors identified. Assessment: 22:25 General: Appears in no apparent distress. comfortable, well groomed, well developed, pf1 Behavior is calm, cooperative, appropriate for age, quiet. 22:25 Pain: Complains of pain in left leg Pain began today. Neuro: No deficits noted. Level pf1 of Consciousness is awake, alert, obeys commands, Oriented to person, place, time, situation. Cardiovascular: No deficits noted. Capillary refill < 3 seconds Patient's skin is warm and dry. Respiratory: No deficits noted. Airway is patent Respiratory effort is even, unlabored, Respiratory pattern is regular, symmetrical. GI: No deficits noted. No signs and/or symptoms were reported involving the gastrointestinal system. : No deficits noted. No signs and/or symptoms were reported regarding the genitourinary system. EENT: No deficits noted. No signs and/or symptoms were reported regarding the EENT system. Musculoskeletal: Reports pain in left leg since today. Vital Signs: 21:04 BP 149 / 87; Pulse 73; Resp 16; Temp 97.3; Pulse Ox 96% ; hb 22:25 BP 145 / 68; Pulse 80; Resp 16; Pulse Ox 96% ; pf1 ED Course: 20:42 Patient arrived in ED. ag3 20:56 Luh Reynaga FNP-C is [facility]. kb 20:56 Jameson Mendez MD is Attending Physician. kb 21:07 Triage completed. hb 21:38 US Extremity Venous Unilateral Ltd In Process Unspecified. EDMS 22:25 Arm band placed on right wrist. pf1 22:25 Patient has correct armband on for positive identification. Bed in low position. Call pf1 light in reach. 22:25 No provider procedures requiring assistance completed. Patient did not have IV access pf1 during this emergency room visit. 22:50 Provided Education on: follow up. pf1 Administered Medications: No medications were administered Medication: 22:25 VIS not applicable for this client. pf1 Outcome: 22:42 Discharge ordered by . kb 22:50 Discharged to home ambulatory, pf1 22:50 Condition: improved pf1 22:50 Discharge instructions given to patient, Instructed on discharge instructions, follow up and referral plans. Demonstrated understanding of instructions, follow-up care, 22:50 Patient left the ED. pf1 Signatures: Dispatcher [employer] EDMS Luh Reynaga, TIGHT BARREL INSPECTOR-C TIGHT BARREL INSPECTOR-Pia Rogel RN RN Jing Squires 3 Erma Martinez RN RN pf1 Corrections: (The following items were deleted from the chart) 11/21 06:50 11/20 23:04 Patient left the ED. pf1 pf1
[2023-11-21 01:07] VITALS: BP 149/87; TEMP 97.3; O2SAT 96
== END ==
LOC: ER 20:28
DX: M79.605 Pain in left leg (principal); Z86.73 Personal history of transient ischemic attack (TIA), and cerebral infarction without residual deficits; Z88.2 Allergy status to sulfonamides; Z89.611 Acquired absence of right leg above knee
CPT/HCPCS: 93971; 99282

== ENCOUNTER 2025-01-16 13:39 | Emergency (ER) | payer MEDICARE ==
--- OUTSIDE RECORDS SUMMARY | 2025-01-16 13:44 | XMS REPORT | Clinical Summary ---
Author Name Unknown Organization [facility] [place] Address [address] [place] [address] Care Team Providers Care Rapid Outsole Stitcher Name Role Phone Spike Whyte MD Primary Care Provider [phone] Social History Tobacco Use Types Packs/Day Years Used Date Smoking Tobacco: Never Assessed Sex and Gender Information Value Date Recorded Sex Assigned at Not on file Legal Sex Male 2:43 PM CDT Gender Identity Not on file Sexual Orientation Not on file Plan of Treatment Health Maintenance Due Date Last Done Comments Pneumococcal Vaccine: 50+ Ye ars (2 of 2 - PCV) 10/01/2019 10/01/2018, 02/17/2018 COVID-19 Vaccine (2023- season) 2024 Influenza Vaccine (#1) 2024 0, 10/01/2018, 01/09/2015 Insurance MEDICARE PART A AND B [employer] SENIOR SUPPLEMENT-SECONDARY ONLY MEDICARE PART A AND B AETNA SENIOR SUPPLEMENT-SECONDARY ONLY Care Teams Rapid Outsole Stitcher Relationship Specialty Start Date End Date Spike Whyte MD [address] [place] [address] [email or web address] PCP - General Gastroenterology, Hepatology and Nutrition 07/09/20
[2025-01-16 14:58] LABS: Absolute Basophils 0.1 K/uL (0-0.5); Absolute Eosinophils 0.8 K/uL (0-0.5); Absolute Lymphocytes (CBC) 3.9 K/uL (0.7-4.9); Absolute Neutrophil 7.1 K/uL (1.8-8.0); Basophils % 0.5 % (0-1.3); Eosinophils % 5.7 % (0-4.4); Hemoglobin 12.2 g/dL (13.6-17.9); MCH 30.5 pg (27.0-35.0); MCV 92.2 fL (80-100); MPV 10.4 fL (7.6-11.3); Monocytes % 14.6 % (3.3-12.3); Neutrophils % 51.2 % (41.7-73.7); Platelets 304 thou/uL (152-406); RBC Red Blood Cell Count 4.02 M/uL (4.33-5.43); Red Cell Distribution Width 14.3 % (12.1-15.2)
[2025-01-16 15:07] LABS: PT Prothrombin Time 11.8 SECONDS (10.0-13.0); Protime INR 1.04
[2025-01-16 15:16] LABS: Albumin 2.7 g/dL (3.4-5.0); Albumin/Globulin Ratio 0.7 (1.1-1.8); Anion Gap 6.8 mEq/L (5.0-15.0); Bilirubin Total 0.6 mg/dL (0.2-1.0); Globulin 3.8 g/dL (2.3-3.5); Potassium 4.8 mEq/L (3.5-5.1); Protein, Total 6.5 g/dL (6.4-8.2)
--- NOTE | 2025-01-16 15:40 | RAD REPORT ---
EXAM: CT brain without contrast HISTORY: CONFUSED COMPARISON: None TECHNIQUE: Multiple contiguous axial images were obtained and a CT of the brain without contrast. Sag ittal and coronal reformats were performed. FINDINGS: No evidence of hydrocephalus, intracranial hemorrhage, or extra-axial fluid collection. The brain is normal in morphology. The calvarium is intact. The visualized paranasal sinuses and mastoid air cells are essentially clear . IMPRESSION: No evidence of acute intracranial abnormality. EXAM: CT of the cervical spine without contrast HISTORY: CONFUSED COMPARISON: None TECHNIQUE: Multiple contiguous axial images were obtained in a CT of the cervical spine without contr ast. Sagittal and coronal reformats were performed. FINDINGS: The vertebral bodies demonstrate normal height and alignment. No evidence of acute fracture or subluxation.. Mild to moderate multilevel degenerative changes most at C5-6, with up to moderate neural foraminal narrowing. No prevertebral soft tissue swelling is seen. The posterior facets are well aligned. Normal alignment of the skull base with the cervical spine is seen. The lung apices are unremarkable. IMPRESSION: No evidence of acute osseous abnormality of the cervical spine. Degenerative changes as above.
--- NOTE | 2025-01-16 16:21 | RAD REPORT ---
EXAMINATION: XR LEFT SHOULDER CLINICAL INDICATION: Male, 74 years old. PAIN TECHNIQUE: Internal and external AP view radiograph of the left shoulder were obtained. COMPARISON: No prior exam. FINDINGS: No evidence of fracture or dislocation. Cranial translation of the humerus, with moderate A C joint degenerative changes. No focal bone lesion. Soft tissues are unremarkable. IMPRESSION: No acute osseous abnormalities. Degenerative changes of the AC joint with cranial translation of the humeral head, which may suggest underlying chronic rotator cuff tear.
--- NOTE | 2025-01-16 16:24 | RAD REPORT ---
EXAMINATION: CT Abdomen Pelvis W Contrast CLINICAL INDICATION: Male, 74 years old. ABD PAIN TECHNIQUE: CT abdomen and pelvis was performed, after the administration of IV contrast, [facility]. Axial, sagittal and coronal reconstructions were obtained. One or more of the following dose reduction techniques were used: Automated exposure control, adjustment of the mA and k V according to patient size, and iterative reconstruction. Unless otherwise specified, incidental findings do not require dedicated imaging follow-up. COMPARISON: 12/07/2021 FINDINGS: LOWER CHEST: The visualized lung bases are clear. LIVER: Normal in size and contour. No focal lesion. BILIARY SYSTEM: Status post cholecystectomy. SPLEEN: Normal size. No focal lesion. PANCREAS: Atrophic changes with coarse calcifications throughout the pancreas again seen. No acute in flammatory changes or suspicious masses. ADRENALS: Normal; no mass. KIDNEYS: Normal size and contour. No hydronephrosis. Stable cortical cystic lesions, largest at the l eft lower pole measuring 3 cm URINARY BLADDER: Unremarkable. GASTROINTESTINAL TRACT: No evidence of free air, significant intra-abdominal free fluid, bowel obstru ction or abscess. APPENDIX: Normal appendix. LYMPH NODES: No lymphadenopathy. MUSCULOSKELETAL: No acute or suspicious osseous abnormality. ADDITIONAL FINDINGS: Diastasis recti. IMPRESSION: No acute or concerning abnormalities seen in the abdomen or pelvis. Stable incidental findings as abo ve.
[2025-01-16 16:27] LABS: Specific Gravity 1.022 (1.005-1.030); Urine Bilirubin NEGATIVE (Negative); Urine Blood Negative (Negative); Urine Clarity Clear (Clear); Urine Color Colorless (Yellow); Urine Glucose 2+ (Negative); Urine Ketones NEGATIVE (Negative); Urine Microscopic Reflex YN NO UMIC; Urine Nitrite NEGATIVE (Negative); Urine Protein NEGATIVE (Negative); Urine Urobilinogen Normal (Normal)
--- NOTE | 2025-01-16 16:38 | ER ---
Nurse's Notes [facility] Name: Anish Leon Age: 74 yrs Sex: Male : 1950 Arrival Date: 01/16/2025 Time: 13:39 Bed 8 Private MD: Diagnosis: Hallucinations, unspecified-resolved;Pain in left shoulder;Skin tear left elbow Presentation: 01/16 13:47 Chief complaint: Patient states: he came in the living room this morning and thought iw someone was in the bed and climbing the wall, he was hallucinating. He was confused about where he was. He says he is having some burning with urination since last night. and he had a fall Wednesday night. Coronavirus screen: At this time, the client does not indicate any symptoms associated with coronavirus-19. Ebola Screen: No symptoms or risks identified at this time. Initial Sepsis Screen: Does the patient meet any 2 criteria? No. Patient's initial sepsis screen is negative. Does the patient have a suspected source of infection? No. Patient's initial sepsis screen is negative. Risk Assessment: Do you want to hurt yourself or someone else? Patient reports no desire to harm self or others. Onset of symptoms. 13:47 Acuity: DESHAWN 3 iw 13:47 Method Of Arrival: Wheelchair iw Triage Assessment: 13:51 General: Appears in no apparent distress. Behavior is calm, cooperative. Pain: iw Complains of pain in left arm. Neuro: Level of Consciousness is awake, alert, obeys commands, Oriented to person, place, time, Moves all extremities. Historical: - Allergies: 13:50 Sulfa (Sulfonamide Antibiotics); iw - PMHx: 13:50 Diabetes - NIDDM; Depression; Diverticulitis; intestinal obstruction; MRSA; iw Pancreatitis; TIA; - PSHx: 13:50 left knee; colon resection; right AKA; Splenectomy; iw - Immunization history:: Adult Immunizations up to date. - Infectious Disease History:: Denies. - Social history:: Smoking status: unknown. Screenin:49 [facility] ED Fall Risk Assessment (Adult) History of falling in the last 3 months, kc6 including since admission Yes- single mechanical fall (1 pt) Confusion or Disorientation No (0 pts) Intoxicated or Sedated No (0 pts) Impaired Gait Yes (1 pt) Mobility Assist Device Used Yes (1 pt) Altered Elimination No (0 pt) Score/Fall Risk Level 3 or more points = High Risk Oriented to surroundings, Maintained a safe environment, Educated pt \T\ family on fall prevention, incl call for assistance when getting out of bed. Abuse screen: Denies threats or abuse. Denies injuries from another. Nutritional screening: No deficits noted. Tuberculosis screening: No symptoms or risk factors identified. Assessment: 14:51 General: Appears in no apparent distress. comfortable, well groomed, well developed, kc6 Behavior is calm, cooperative, appropriate for age. Pain: Denies pain. Neuro: Level of Consciousness is awake, alert, obeys commands, Oriented to person, place, time, situation, Appropriate for age. Cardiovascular: Capillary refill < 3 seconds. Respiratory: Airway is patent Trachea midline Respiratory effort is even, unlabored, Respiratory pattern is regular, symmetrical. GI: No signs and/or symptoms were reported involving the gastrointestinal system. : No signs and/or symptoms were reported regarding the genitourinary system. EENT: No signs and/or symptoms were reported regarding the EENT system. Derm: No signs and/or symptoms reported regarding the dermatologic system. Skin is intact, is healthy with good turgor, Skin is pink, warm \T\ dry. Musculoskeletal: Amputation of right leg. 15:54 Reassessment: Patient appears in no apparent distress at this time. No changes from kc6 previously documented assessment. Patient and/or family updated on plan of care and expected duration. Pain level reassessed. Patient is alert, oriented x 3, equal unlabored respirations, skin warm/dry/pink. 16:54 Reassessment: Patient appears in no apparent distress at this time. No changes from kc6 previously documented assessment. Patient and/or family updated on plan of care and expected duration. Pain level reassessed. Patient is alert, oriented x 3, equal unlabored respirations, skin warm/dry/pink. Vital Signs: 13:47 BP 129 / 97; Pulse 72; Resp 16; Temp 97.6; Pulse Ox 100% on R/A; iw 14:50 BP 138 / 91; Pulse 65; Resp 16 S; Pulse Ox 100% on R/A; kc6 15:54 BP 112 / 93; Pulse 70; Resp 17 S; Pulse Ox 100% on R/A; kc6 ED Course: 13:42 Patient arrived in ED. iw 13:48 Luh Reynaga FNP-C [facility]. kb 13:48 Pete Dickinson MD is Attending Physician. kb 13:50 Triage completed. iw 13:51 Arm band placed on. iw 14:06 Patient placed in an exam room, on a stretcher. ll1 14:09 Jacqui Hawkins, RN is Primary Nurse. kc6 14:13 Shoulder Left (2 View) XRAY In Process Unspecified. EDMS 14:24 CT Head C Spine In Process Unspecified. EDMS 14:24 CT Abd/Pelvis - IV Contrast Only In Process Unspecified. EDMS 14:49 Patient has correct armband on for positive identification. Bed in low position. Call kc6 light in reach. Side rails up X2. Adult w/ patient. awake overnight monitor on. Pulse ox on. NIBP on. Door closed. Noise minimized. Lights dimmed. Warm blanket given. Pillow given. Verbal reassurance given. 14:49 Inserted saline lock: 22 gauge in right forearm, using aseptic technique. Blood kc6 collected. Flushed with 10 mL NS. Patient maintains SpO2 saturation greater than 95% on room air. 17:06 No provider procedures requiring assistance completed. IV discontinued, intact, kc6 bleeding controlled, No redness/swelling at site. Pressure dressing applied. Administered Medications: No medications were administered Medication: 17:06 VIS not applicable for this client. kc6 Outcome: 16:37 Discharge ordered by . kb 17:06 Discharged to home via wheelchair, with significant other, kc6 17:06 Condition: good 17:06 Discharge instructions given to patient, significant other, Instructed on discharge instructions, follow up and referral plans. Demonstrated understanding of instructions, follow-up care, 17:06 Patient left the ED. kc6 Signatures: Dispatcher [employer] EDMS Luh Reynaga FNP-C FNP-Shara Lock RN RN iw Yessi Nowak RN RN ll1 Jacqui Hawkins, RN RN kc6 Corrections: (The following items were deleted from the chart) 13:51 13:47 BP 129 / 97; Pulse 72bpm; Resp 16bpm; Pulse Ox 100% RA; Temp 97.6F; iw iw
--- NOTE | 2025-01-16 16:38 | EDPHYS ---
Physician Documentation [facility] Name: Anish Leon Age: 74 yrs Sex: Male : 1950 Arrival Date: 01/16/2025 Time: 13:39 Bed 8 Private MD: ED Physician Ptee Dickinson HPI: 01/16 14:06 This 74 yrs old Male presents to ER via Wheelchair with complaints of Pain With kb Urination, confusion, Fall Injury. 14:06 Pt is a 74 year old male who presents for dysuria that started last night with kb hallucinations/confusion that occurred at 0530 and 0930 this morning. Pt now A\T\Ox4 and states he seems back to normal. Pt states he woke up the first time and thought he saw someone sleeping in bed next to him, but no one was there. Then, at 0930, he was confused about sleeping in his bed and being in their apartment. Denies fever, n/v/d. Also reports falling from wheelchair 3 days ago, denies hitting head or loc. Reports left shoulder pain from that and worsening chronic neck pain since the fall. . Historical: - Allergies: 13:50 Sulfa (Sulfonamide Antibiotics); iw - PMHx: 13:50 Diabetes - NIDDM; Depression; Diverticulitis; intestinal obstruction; MRSA; iw Pancreatitis; TIA; - PSHx: 13:50 left knee; colon resection; right AKA; Splenectomy; iw - Immunization history:: Adult Immunizations up to date. - Infectious Disease History:: Denies. - Social history:: Smoking status: unknown. ROS: 14:08 Constitutional: As per HPI kb Exam: 14:08 Constitutional: This is a well developed, well nourished patient who is awake, alert, kb and in no acute distress. Head/Face: Normocephalic, atraumatic. ENT: Moist Mucous membranes Cardiovascular: Regular rate Respiratory: Respirations even and unlabored. No increased work of breathing. Talking in full sentences Back: No spinal tenderness. No costovertebral tenderness. Full range of motion. Skin: Warm, dry with normal turgor. Normal color. MS/ Extremity: Pulses equal, no cyanosis. Neurovascular intact. Full, normal range of motion. Neuro: Awake and alert, GCS 15, oriented to person, place, time, and situation. 14:08 Neck: External neck: tenderness, that is mild, of the left mid cervical area, right mid cervical area and lower cervical area, 14:08 Abdomen/GI: Inspection: abdomen appears normal, Bowel sounds: normal, Palpation: soft, in all quadrants, mild abdominal tenderness, in the suprapubic area, 14:31 Skin: skin tear to left elbow without erythema, drainage, swelling, warmth. kb 14:41 ECG was reviewed by the Attending Physician. kb Vital Signs: 13:47 BP 129 / 97; Pulse 72; Resp 16; Temp 97.6; Pulse Ox 100% on R/A; iw 14:50 BP 138 / 91; Pulse 65; Resp 16 S; Pulse Ox 100% on R/A; kc6 15:54 BP 112 / 93; Pulse 70; Resp 17 S; Pulse Ox 100% on R/A; kc6 MDM: 13:48 Medical Screening Exam initiated kb 16:35 Differential diagnosis: uti, cystitis, abnormal electrolytes, dehydration, head injury, kb fracture, strain. Data reviewed: vital signs, nurses notes. Consideration of Admission/Observation Escalation of care including admission/observation considered. admission considered for hallucinations/AMS, but symptoms resolved and pt states he feels fine. in agreement with outpatient follow up. . Historians other than the Patient: Spouse/Significant Other: . Counseling: I had a detailed discussion with the patient and/or guardian regarding the historical points, exam findings, and any diagnostic results supporting the discharge/admit diagnosis, lab results, radiology results, the need for outpatient follow up, a family practitioner, to return to the emergency department if symptoms worsen or persist or if there are any questions or concerns that arise at home. 01/16 13:59 Order name: Blood Culture Adult (2) 01/16 13:59 Order name: CBC with Diff; Complete Time: 15:06 kb 01/16 13:59 Order name: CMP; Complete Time: 15:18 kb 01/16 13:59 Order name: Lactate w/ 2H reflex if indic.; Complete Time: 15:15 kb 01/16 13:59 Order name: Protime (+inr); Complete Time: 15:14 kb 01/16 13:59 Order name: Ptt, Activated; Complete Time: 15:14 kb 01/16 13:59 Order name: Urinalysis w/ reflexes; Complete Time: 16:27 kb 01/16 13:59 Order name: CT Head C Spine; Complete Time: 15:43 kb 01/16 13:59 Order name: Shoulder Left (2 View) XRAY; Complete Time: 16:22 kb 01/16 14:08 Order name: CT Abd/Pelvis - IV Contrast Only; Complete Time: 16:27 kb 01/16 13:59 Order name: Cardiac monitoring; Complete Time: 14:49 kb 01/16 13:59 Order name: EKG - Nurse/Tech; Complete Time: 14:49 kb 01/16 13:59 Order name: IV Saline Lock - Large Bore; Complete Time: 14:49 kb 01/16 13:59 Order name: Labs collected and sent; Complete Time: 14:49 kb 01/16 13:59 Order name: O2 Per Protocol; Complete Time: 14:49 kb 01/16 13:59 Order name: O2 Sat Monitoring; Complete Time: 14:49 kb 01/16 13:59 Order name: Vital Signs; Complete Time: 14:49 kb EC:41 Rate is 71 beats/min. Rhythm is regular. QRS Mobile is Normal. VT interval is prolonged kb at 282 msec. QRS interval is normal at 116 msec. QT interval is normal at 410 msec. Administered Medications: No medications were administered Disposition: 01/17 07:06 Co-signature as Attending Physician, Pete Dickinson MD I reviewed the patient's care rn provided by the Advanced Practice Provider and agree with the diagnosis and treatment plan. Disposition Summary: 01/16/25 16:37 Discharge Ordered Notes: Location: Home kb Condition: Stable kb Diagnosis - Hallucinations, unspecified - resolved kb - Pain in left shoulder kb - Skin tear left elbow kb Followup: kb - With: Emergency Department - When: As needed - Reason: Worsening of condition Followup: kb - With: Private Physician - When: 2 - 3 days - Reason: Recheck today's complaints, Continuance of care, Re-evaluation by your physician Discharge Instructions: - Discharge Summary Sheet kb - Dysuria kb - Shoulder Pain, [id number] kb Forms: - Medication Reconciliation Form kb - Antibiotic Education kb - Prescription Opioid Use kb - Patient Portal Instructions kb - Leadership Thank You Letter kb Signatures: Dispatcher [employer] Luh Parra, MEAGAN-C MEAGAN-Shara Lock, Pete Benites RN, MD MD rn Campbell, Kaitlyn, RN RN kc6 Corrections: (The following items were deleted from the chart) 01/16 13:59 13:59 BLOOD CULTURE*+BA.LAB.BRZ ordered. EDMS EDMS 13:59 13:59 CBC+H.LAB.BRZ ordered. EDMS EDMS 13:59 13:59 COMPREHENSIVE METABOLIC PANEL+C.LAB.BRZ ordered. EDMS EDMS 13:59 13:59 LACTATE+C.LAB.BRZ ordered. EDMS EDMS 13:59 13:59 PROTIME (+INR)+COAG.LAB.BRZ ordered. EDMS EDMS 13:59 13:59 PTT, ACTIVATED+COAG.LAB.BRZ ordered. EDMS EDMS 13:59 13:59 Urinalysis+U.LAB.BRZ ordered. EDMS EDMS 13:59 13:59 Head C Spine MPR Wo Con+CT.RAD.BRZ ordered. EDMS EDMS 14:00 14:00 Shoulder Left 2 View+RAD.RAD.BRZ ordered. EDMS EDMS 14:10 14:06 Pt is a 74 year old male who presents for dysuria that started last night with kb hallucinations/confusion that occurred at 0530 and 0930 this morning. Pt now A\T\Ox4 and states he seems back to normal. Pt states he woke up the first time and thought he saw someone sleeping in bed next to him, but no one was there. Then, at 0930, he was confused about sleeping in his bed and being in their apartment. Denies fever, n/v/d. . kb
[2025-01-16 17:39] VITALS: TEMP 97.6; O2SAT 100
[2025-01-16 17:42] VITALS: BP 112/93
--- NOTE | 2025-01-18 16:52 | EKG ---
Test Date: 2025-01-16 Test Time: 14:38:08 Community Liaison Officer: SHERRY MEASUREMENT RESULTS: Intervals: Rate: 71 ID: [id number] QRSD: 116 QT: 378 QTc: 410 [place]: P: 49 ID: [id number] QRS: 19 T: 135 INTERPRETIVE STATEMENTS: Sinus rhythm with 1st degree AV block Cannot rule out Anterior infarct, age undetermined Abnormal ECG Compared to ECG 02/16/2023 15:00:02 Myocardial infarct finding now present ST (T wave) deviation no longer present Possible ischemia no longer present Electronically Signed On 01-18-25 16:46:20 MANDREL CLEANER by Kevin Ayala
== END 2025-01-16 17:06 | disposition home or self-care (01) ==
LOC: ER 13:39
DX: M25.512 Pain in left shoulder (principal); S51.012A Laceration without foreign body of left elbow, initial encounter; W05.0XXA Fall from non-moving wheelchair, initial encounter; R30.0 Dysuria; E11.9 Type 2 diabetes mellitus without complications; Z89.611 Acquired absence of right leg above knee; Z86.73 Personal history of transient ischemic attack (TIA), and cerebral infarction without residual deficits
CPT/HCPCS: 87040 ×2; 85025; 36415; 85610; 83605; 85730; 81003; 80053; 70450; 72125; 74177; 73030; 99284; Q9967; 82565; 93005

== ENCOUNTER 2025-03-13 15:19 | Emergency (ER) | payer MEDICARE ==
--- OUTSIDE RECORDS SUMMARY | 2025-03-13 15:22 | XMS REPORT | Clinical Summary ---
Author Name Unknown Organization [facility] [place] Address [address] [place] [address] Care Team Providers Care Coil Builder Name Role Phone Spike Whyte MD Primary Care Provider [phone] Social History Tobacco Use Types Packs/Day Years [...] A AND B [employer] SENIOR SUPPLEMENT-SECONDARY ONLY [facility] Address: [address] [address] [place] [address] MEDICARE PART A AND B [employer]ET[employer] SENIOR SUPPLEMENT-SECONDARY ONLY [facility] Address: [address] [address] [place] [address] Care Teams Coil Builder Relationship Specialty Start Date End Date Spike Whyte MD [address] [place] [address] [email or web address] PCP - General Gastroenterology, Hepatology and Nutrition 07/09/20
[2025-03-13] MEDS ORDERED: PANTOPRAZOLE INJ 80 MG in NA CHLORIDE 0.9% 250 ML IV SCH (15:42)
[2025-03-13] MEDS ORDERED: OCTREOTIDE 500 MCG in NA CHLORIDE 0.9% 500 ML IV SCH (15:42)
[2025-03-13] MEDS ORDERED: PANTOPRAZOLE 40 MG INJ ONE (15:45)
[2025-03-13] MEDS ORDERED: OCTREOTIDE ACETATE 100 MCG/ML ONE (15:46)
[2025-03-13] MEDS ORDERED: VITAMIN K (ADULT) 10 MG/ML ONE (15:46)
[2025-03-13] MEDS ORDERED: NA CHLORIDE 0.9% 500 ML ONE ×2 (15:46→15:47)
[2025-03-13] MEDS ORDERED: ONDANSETRON 4 MG/2 ML VIAL ONE (15:57)
[2025-03-13 16:04] LABS: Absolute Eosinophils 0.2 K/uL (0-0.5); Absolute Lymphocytes (CBC) 3.1 K/uL (0.7-4.9); Absolute Monocytes 2.1 K/uL (0.1-1.3); Absolute Neutrophil 13.7 K/uL (1.8-8.0); Basophils % 0.3 % (0-1.3); Eosinophils % 0.9 % (0-4.4); Hematocrit 21.9 % (39.6-49.0); Hemoglobin 7.2 g/dL (13.6-17.9); Lymphocytes % 16.2 % (15.3-44.8); MCH 30.6 pg (27.0-35.0); MCHC 33.1 g/dL (32.0-36.0); MCV 92.5 fL (80-100); MPV 10.2 fL (7.6-11.3); Monocytes % 10.8 % (3.3-12.3); Neutrophils % 71.8 % (41.7-73.7); Platelets 210 thou/uL (152-406); RBC Red Blood Cell Count 2.37 M/uL (4.33-5.43); Red Cell Distribution Width 15.8 % (12.1-15.2)
[2025-03-13 16:09] LABS: PT Prothrombin Time 12.9 SECONDS (10-13.0); Protime INR 1.14
[2025-03-13 16:29] LABS: ALT/SGPT < 14 U/L (16-61); AST/SGOT < 10 U/L (15-37); Albumin 1.8 g/dL (3.4-5.0); Albumin/Globulin Ratio 0.7 (1.1-1.8); Alkaline Phosphatase 84 U/L (45-117); Anion Gap 16.5 mEq/L (5.0-15.0); BUN Blood Urea Nitrogen 48 mg/dL (7-18); Bicarbonate 17 mEq/L (21-32); Bilirubin Direct 0.2 mg/dL (0-0.2); Bilirubin Indirect, Calculated 0.3 mg/dL (0.2-0.8); Bilirubin Total 0.5 mg/dL (0.2-1.0); Globulin 2.7 g/dL (2.3-3.5); Glomerular Filtration Rate 43 ml/min (=/>90); Glucose Level 254 mg/dL (74-106); Lipase 8 U/L (13-75); Magnesium 1.4 mg/dL (1.6-2.4); NT PRO-BNP 285 pg/mL (<125); Potassium 4.5 mEq/L (3.5-5.1); Protein, Total 4.5 g/dL (6.4-8.2); Sodium Level 139 mEq/L (136-145); Troponin High Sensitivity 5.9 pg/mL (<58.9)
--- NOTE | 2025-03-13 16:49 | EDPHYS ---
Physician Documentation [facility] Name: Anish Leon Age: 74 yrs Sex: Male : 1950 Arrival Date: 03/13/2025 Time: 15:19 Bed 2 Private MD: ED Physician Krish Sandoval HPI: 03/13 15:58 This 74 yrs old Male presents to ER via EMS with complaints of GI Bleeding. ashley 15:59 The patient presents to the emergency department vomiting blood, a large amount. Onset: ashley The symptoms/episode began/occurred just prior to arrival, this morning. Abdominal pain: none is appreciated. Modifying factors: The symptoms are alleviated by nothing, the symptoms are aggravated by movement. Associated signs and symptoms: Pertinent positives: shortness of breath, syncope, vomiting. Severity of symptoms: At their worst the symptoms were moderate in the emergency department the symptoms have improved moderately. The patient has not experienced similar symptoms in the past. Historical: - Allergies: 15:30 Sulfa (Sulfonamide Antibiotics); ph - PMHx: 15:30 Depression; Diabetes - NIDDM; Diverticulitis; intestinal obstruction; MRSA; MRSA; ph Pancreatitis; TIA; - PSHx: 15:30 colon resection; left knee; right AKA; Splenectomy; ph - Immunization history:: Adult Immunizations unknown. - Infectious Disease History:: Denies. - Social history:: Smoking status: Reported history of juuling and/or vaping. ROS: 16:04 Eyes: Negative for injury, pain, redness, and discharge, Cardiovascular: Negative for ashley chest pain, palpitations, and edema, 16:04 Constitutional: Positive for fatigue, poor PO intake, 16:04 Cardiovascular: Positive for orthopnea, palpitations, 16:04 Respiratory: Positive for shortness of breath, at rest. 16:04 Abdomen/GI: Positive for nausea, vomiting, hematemesis, black/tarry stool, Exam: 16:04 Constitutional: This is a well developed, well nourished patient who is awake, alert, ashley and in no acute distress. Head/Face: Normocephalic, atraumatic. Eyes: Pupils equal round and reactive to light, extra-ocular motions intact. Lids and lashes normal. Conjunctiva and sclera are non-icteric and not injected. Cornea within normal limits. Periorbital areas with no swelling, redness, or edema. ENT: Nares patent. No nasal discharge, no septal abnormalities noted. Tympanic membranes are normal and external auditory canals are clear. Oropharynx with no redness, swelling, or masses, exudates, or evidence of obstruction, uvula midline. Mucous membranes moist. Neck: Trachea midline, no thyromegaly or masses palpated, and no cervical lymphadenopathy. Supple, full range of motion without nuchal rigidity, or vertebral point tenderness. No Meningismus. Chest/axilla: Normal chest wall appearance and motion. Nontender with no deformity. No lesions are appreciated. Back: No spinal tenderness. No costovertebral tenderness. Full range of motion. Male : Normal genitalia with no discharge or lesions. MS/ Extremity: Pulses equal, no cyanosis. Neurovascular intact. Full, normal range of motion., bilateral aka Psych: Awake, alert, with orientation to person, place and time. Behavior, mood, and affect are within normal limits. 16:04 Cardiovascular: Rate: normal, Rhythm: regular, Pulses: Pulses are 4+ in bilateral radial, brachial, femoral, popliteal, posterior tibial and and dorsalis pedis arteries.. Heart sounds: normal, Edema: is not appreciated, JVD: is not appreciated, 16:04 ECG was reviewed by the Attending Physician. 16:04 Abdomen/GI: Bowel sounds: diminished, Palpation: soft, Rectal exam: rectal tone normal, Stool: black, Liver: no appreciated palpable abnormalities, Hernia: not appreciated, 16:04 Skin: Appearance: Color: pale, Temperature: normal temperature, Moisture: normal moisture, abscess, not appreciated, cellulitis, is not appreciated, 16:43 ECG was reviewed by the Attending Physician. [facility] Vital Signs: 15:31 BP 55 / 42; Pulse 84; Resp 18; Temp 96.5; Pulse Ox 98% on R/A; Weight 104.33 kg; Height ph 5 ft. 11 in. ; 15:45 BP 56 / 45; Pulse 93; Resp 18; Pulse Ox 99% on R/A; ph 16:00 BP 97 / 70; Pulse 82; Resp 16; Pulse Ox 100% on R/A; ph 16:15 BP 73 / 55; Pulse 79; Resp 18; Pulse Ox 98% on R/A; ph 16:30 BP 79 / 57; Pulse 74; Resp 16; Temp 97; Pulse Ox 97% ; ph 16:39 BP 78 / 53; Pulse 73; Resp 14 S; Pulse Ox 100% on 2 lpm NC; iw 16:45 BP 81 / 67; Pulse 74; Resp 16; Pulse Ox 98% on R/A; ph 17:00 BP 94 / 63; Pulse 71; Resp 18; Temp 96.9(Ca); Pulse Ox 98% ; ph 17:15 BP 92 / 60; Pulse 71; Resp 18; Temp 96.8(Ca); Pulse Ox 98% ; ph 17:31 BP 92 / 62; Pulse 70; Resp 18; Pulse Ox 97% on R/A; ph 17:45 BP 91 / 64; Pulse 72; Resp 18; Temp 96.7(Ca); Pulse Ox 100% on R/A; ph 18:00 BP 98 / 68; Pulse 68; Resp 18; Pulse Ox 99% on R/A; ph 18:15 BP 118 / 52; Pulse 69; Resp 16; Temp 96.8; Pulse Ox 99% on R/A; ph 18:39 BP 124 / 55; Pulse 69; Resp 18; Temp 96.8; Pulse Ox 100% on R/A; ph 15:31 Body Mass Index 32.08 (104.33 kg, 180.34 cm) ph NIH Stroke Scale Scores: 16:04 NIHSS Score: 0 ashley Angle Coma Score: 16:04 Eye Response: spontaneous(4). Motor Response: obeys commands(6). Verbal Response: ashley oriented(5). Total: 15. Procedures: 16:11 Central Line: the site was prepped with Betadine, in sterile fashion, a triple lumen ashley catheter was inserted, in the right femoral vein, in 1 attempts. placement was verified, by blood return, the site was dressed with the patient tolerated the procedure, well. MDM: 15:53 Medical Screening Exam initiated ashley 16:08 Differential diagnosis: gastritis, hemorrhagic shock, varices, diverticulitis, ashley gastritis, gastroesophageal reflux disease, GI Bleed, Hepatitis. Differential Diagnosis: cardiac arrhythmia, GI bleed, idiopathic syncope, vasovagal episode. Data reviewed: vital signs, nurses notes, lab test result(s), EKG, radiologic studies, plain films. Consideration of Admission/Observation Escalation of care including admission/observation considered. I considered the following discharge prescriptions or medication management in the emergency department Medications were administered in the Emergency Department. See MAR. Independent interpretation of the following test(s) in the Emergency Department EKG: See my EKG interpretation above. Test considered but Not performed: Ultrasound no abd usg. Historians other than the Patient: EMS: ems well ionformed. Spouse/Significant Other: informed. Care significantly affected by the following chronic conditions: Diabetes, Hypertension, Obesity. Counseling: I had a detailed discussion with the patient and/or guardian regarding the historical points, exam findings, and any diagnostic results supporting the discharge/admit diagnosis, lab results, radiology results, the need to transfer to another facility, for higher level of care, [facility] does not immediately have the required specialist, no ir. 03/13 15:36 Order name: Basic Metabolic Panel; Complete Time: 16:45 ph 03/13 15:36 Order name: CBC with Diff; Complete Time: 16:24 ph 03/13 15:36 Order name: LFT's; Complete Time: 16:45 ph 03/13 15:36 Order name: Magnesium; Complete Time: 16:45 ph 03/13 15:36 Order name: NT PRO-BNP; Complete Time: 16:45 ph 03/13 15:36 Order name: PT-INR; Complete Time: 16:24 ph 03/13 15:36 Order name: Troponin HS; Complete Time: 16:45 ph 03/13 15:36 Order name: Type And Screen ph 03/13 15:36 Order name: Lipase; Complete Time: 16:45 ph 03/13 15:48 Order name: RBC Leukored Pheresis [facility] 03/13 15:48 Order name: RBC Leukoreduced (Pheresis 2) [facility] 03/13 16:40 Order name: Lactate w/ 2H reflex if indic. ashley 03/13 16:43 Order name: Fresh Frozen Plasma [facility] 03/13 16:50 Order name: Urinalysis w/ reflexes; Complete Time: 17:22 bp 03/13 16:54 Order name: FFP Apheresis [facility] 03/13 17:13 Order name: Urine Culture [facility] 03/13 17:16 Order name: Packed RBCs (Additional Unit) [facility] 03/13 17:27 Order name: ABO/RH no charge [facility] 03/13 17:28 Order name: Ghost Lactate-NO COLLECT Timer [facility] 03/13 15:36 Order name: XRAY Chest (1 view); Complete Time: 17:22 ph 03/13 15:36 Order name: Cardiac monitoring; Complete Time: 15:36 ph 03/13 15:36 Order name: EKG - Nurse/Tech; Complete Time: 17:10 ph 03/13 15:36 Order name: IV Saline Lock; Complete Time: 17:10 ph 03/13 15:36 Order name: Labs collected and sent; Complete Time: 17:10 ph 03/13 15:36 Order name: O2 Per Protocol; Complete Time: 15:36 ph 03/13 15:36 Order name: O2 Sat Monitoring; Complete Time: 15:36 ph 03/13 15:38 Order name: Transfuse; Complete Time: 16:15 ph 03/13 15:54 Order name: Central Line Kit; Complete Time: 17:10 ashley 03/13 16:27 Order name: Huffman; Complete Time: 17:10 ashley EC:43 Rate is 74 beats/min. Rhythm is regular. QRS [place] is Normal. AL interval is prolonged ashley at 224 msec. QRS interval is normal. QT interval is normal. No Q waves. T waves are Normal. No ST changes noted. Clinical impression: NSR w/ Non-specific ST/T Changes, 1st degree heart block, and No evidence of ischemia. Interpreted by me. Reviewed by me. Administered Medications: 15:25 Drug: NS 0.9% IV 1000 ml IV at 1 bolus Per protocol; to be given as a bolus over 60 ph minutes {Note: EMS fluids .} Route: IV; Rate: 1 bolus; Site: right upper arm; 16:45 Follow up: Response: No adverse reaction; IV Intake: 1000ml ; IV SiteChange: right ph femoral; IV SiteChange Reason: Infiltration 18:45 Follow up: Response: No adverse reaction; IV Status: Infusion continued upon transfer ph 16:00 Drug: Pantoprazole IVP 80 mg IVP once Route: IVP; Site: right femoral; ph 18:43 Follow up: Response: No adverse reaction ph 16:00 Drug: SandoSTATIN IV 100 mcg IV at calculated rate once Route: IV; Rate: calculated ph rate; Site: right femoral; 16:15 Follow up: Response: No adverse reaction; IV Status: Completed infusion ph 16:00 Drug: Phytonadione Sub-Q 10 mg Sub-Q once Route: Sub-Q; Site: right lower abdomen; ph 18:44 Follow up: Response: No adverse reaction ph 16:00 Drug: Ondansetron IVP 8 mg IVP once; over 2 minutes Route: IVP; Site: right femoral; ph 18:46 Follow up: Response: No adverse reaction ph 16:15 Drug: Pantoprazole IV 8 mg/hr IV at 25 ml/hr continuous; (Standard dilution is 80 mg in ph 250 mL NS) Route: IV; Rate: 25 ml/hr; Site: right femoral; 18:43 Follow up: Response: No adverse reaction; IV Status: Infusion continued upon transfer ph 16:15 Drug: Octreotide Infusion (50 mcg/hr) - (Octreotide IV 500 mcg, NS 0.9% IV 500 ml) IV ph at 50 ml/hr continuous Route: IV; Rate: 50 ml/hr; Site: right femoral; 18:46 Follow up: Response: No adverse reaction; IV Status: Infusion continued upon transfer ph 16:30 Drug: NS 0.9% IV 1000 ml IV at 1000 ml once; to be given as a bolus over 60 minutes iw Route: IV; Rate: 1000 ml; Site: right femoral; 17:30 Follow up: Response: No adverse reaction; IV Status: Completed infusion; IV Intake: ph 1000ml 17:59 Drug: Piperacillin-Tazobactam IVPB 3.375 grams IVPB once over 60 mins; (mix in NS 100 ph mL) Route: IVPB; Infused Over: 60 mins; Site: right femoral; 18:46 Follow up: Response: No adverse reaction; IV Status: Infusion continued upon transfer ph 17:59 Drug: NS 0.9% IV 1000 ml IV at 1000 ml once; to be given as a bolus over 60 minutes ph Route: IV; Rate: 1000 ml; Site: right femoral; 18:46 Follow up: Response: No adverse reaction; IV Status: Infusion continued upon transfer ph 17:59 Drug: Magnesium Sulfate IVPB 2 grams IVPB once over 2 hrs Route: IVPB; Infused Over: 2 ph hrs; Site: right femoral; 18:47 Follow up: Response: No adverse reaction; IV Status: Infusion continued upon transfer ph 18:23 Not Given (Other Intervention Used): acetaminophensuppository 650 mg AL once iw 18:23 Not Given (Other Intervention Used): [id number] mg IVP once iw Disposition Summary: 03/13/25 16:48 Transfer Ordered Notes: Transfer Location: [facility] ashley Reason: Higher level of care ashley Condition: Serious ashley Problem: new ashley Symptoms: have improved ashley Accepting Physician: TO ICU [facility](03/13/25 18:47) ph Diagnosis - Acute kidney failure, unspecified ashley - Acute posthemorrhagic anemia ashley - GI Bleed/ Gastrointestinal hemorrhage, unspecified - UPPER ashley - Hypotension, unspecified ashley - Elevated white blood cell count ashley - Hypomagnesemia ashley - UTI/ Urinary tract infection, site not specified ahsley Forms: - Medication Reconciliation Form ashley - SBAR form ashley Critical care time excluding procedures: 16:43 Critical care time: Bedside Care: 45 minutes, Consultation: 20 minutes, Family ashley Intervention: 15 minutes. Total time: 80 minutes NIH Stroke Scale - NIH Stroke Score Date: 03/13/2025 Time: 16:04 Total Score = 0 10. Dysarthria (speech clarity - read or repeat words) - 0(Normal) 11. Extinction and Inattention (visual/tactile/auditory/spatial/personal) - 0(No abnormality) 1a. Level of Consciousness (LOC) - 0(Alert) 1b. Level of Consciousness (LOC) (Month \T\ Age) - 0(Both) 1c. LOC Commands (Open \T\ Closes Eyes/Mechanical Engineering Technician) - 0(Both) 2. Best Gaze (Lateral Gaze Paresis) - 0(Normal) 3. Visual Field Loss - 0(No visual loss) 4. Facial Palsy - 0(Normal) 5a. Left Arm: Motor (10-second hold) - 0(No drift) 5b. Right Arm: Motor (10-second hold) - 0(No drift) 6a. Left Leg: Motor (5-second hold - always test supine) - 0(No drift) 6b. Right Leg: Motor (5-second hold - always test supine) - 0(No drift) 7. Limb Ataxia (finger/nose \T\ heel/pham - test with eyes open) - 0(Absent) 8. Sensory Loss (pinprick arms/legs/face) - 0(Normal) 9. Best Language: Aphasia (description/naming/reading) - 0(No aphasia) Initials: ashley Signatures: Dispatcher [employer] EDMS Krish Sandoval MD MD cha Williams, Irene, RN RN iw Bam Padgett, INVESTIGATIVE AGENT-C INVESTIGATIVE AGENT-Cla1 Yanelis Posada, RN RN ph Corrections: (The following items were deleted from the chart) 16:40 16:40 LACTATE+C.LAB.BRZ ordered. EDMS EDMS 16:49 16:48 TO ICU [facility] ashley ashley 17:24 16:[address] [facility] ashley 17:50 16:27 Abdomen Angio+CT.RAD.BRZ ordered. EDMS EDMS 18:47 17:[address] [facility] ph
--- NOTE | 2025-03-13 16:49 | ER ---
Nurse's Notes [facility] [place] Name: Anish Leon Age: 74 yrs Sex: Male : 1950 Arrival Date: 03/13/2025 Time: 15:19 Bed 2 Private MD: Diagnosis: Acute kidney failure, unspecified;Acute posthemorrhagic anemia;GI Bleed/ Gastrointestinal hemorrhage, unspecified-UPPER;Hypotension, unspecified;Elevated white blood cell count;Hypomagnesemia;UTI/ Urinary tract infection, site not specified Presentation: 03/13 15:31 Chief complaint: EMS states: EMS called for dark stools and vomiting blood, initial BP ph 50s systolic, unable to obtain IV access, IO to R humerus, NS bolus given via pressure bag, last BP for EMS 112 systolic, pt pale and cool to touch, states that he has been taking " a lot" of ibuprofen for phantom limb pain, denies taking blood thinners. Coronavirus screen: Vaccine status: Patient reports receiving the 2nd dose of the covid vaccine. Ebola Screen: No symptoms or risks identified at this time. Initial Sepsis Screen: Does the patient meet any 2 criteria? No. Patient's initial sepsis screen is negative. Does the patient have a suspected source of infection? No. Patient's initial sepsis screen is negative. Risk Assessment: Do you want to hurt yourself or someone else? Patient reports no desire to harm self or others. Onset of symptoms was March 13, 2025. 15:31 Method Of Arrival: EMS: [facility] ph 15:31 Acuity: DESHAWN 1 ph Historical: - Allergies: 15:30 Sulfa (Sulfonamide Antibiotics); ph - PMHx: 15:30 Depression; Diabetes - NIDDM; Diverticulitis; intestinal obstruction; MRSA; MRSA; ph Pancreatitis; TIA; - PSHx: 15:30 colon resection; left knee; right AKA; Splenectomy; ph - Immunization history:: Adult Immunizations unknown. - Infectious Disease History:: Denies. - Social history:: Smoking status: Reported history of juuling and/or vaping. Screenin:31 [facility] ED Fall Risk Assessment (Adult) History of falling in the last 3 months, ph including since admission No falls in past 3 months (0 pts) Confusion or Disorientation No (0 pts) Intoxicated or Sedated No (0 pts) Impaired Gait Yes (1 pt) Mobility Assist Device Used Yes (1 pt) Altered Elimination Yes (1 pt) Score/Fall Risk Level 3 or more points = High Risk Oriented to surroundings, Maintained a safe environment, Hourly rounding (assess needs \\T\\ fall precautionary measures) done, Used ambulatory aids as needed (educated on \\T\\ assisted with). Abuse screen: Denies threats or abuse. Denies injuries from another. Nutritional screening: No deficits noted. Tuberculosis screening: No symptoms or risk factors identified. Assessment: 15:34 Reassessment: Dr Sandoval at bedside for central line placement. ph 15:45 General: Appears in no apparent distress. Behavior is calm, cooperative. Pain: ph Complains of pain in right lower quadrant and left lower quadrant. Neuro: Level of Consciousness is awake, alert, obeys commands, Oriented to person, place, time, situation, Reports dizziness. Cardiovascular: Reports lightheadedness, Capillary refill is sluggish in bilateral fingers Rhythm is sinus rhythm. Respiratory: Airway is patent Respiratory effort is even, unlabored. GI: Abdomen is round non-distended, Reports lower abdominal pain, bloody stool, nausea, vomiting, bright red emesis. Derm: Skin is pale, Skin temperature is cool. Musculoskeletal: Circulation, motion, and sensation intact. Range of motion: intact in all extremities. 17:34 Reassessment: Patient appears in no apparent distress at this time. Patient and/or ph family updated on plan of care and expected duration. Pain level reassessed. Patient is alert, oriented x 3, equal unlabored respirations, skin warm/dry/pink. Pt cleaned of bowel incontinence, dark, tarry stools noted. 18:33 Reassessment: Patient appears in no apparent distress at this time. Patient and/or ph family updated on plan of care and expected duration. Pain level reassessed. Patient is alert, oriented x 3, equal unlabored respirations, skin warm/dry/pink. [facility] at bedside, pt transferred to [facility] Patient denies pain at this time. Reassessment: Report called to AMANDO Garrett at [facility] GI-ICU. Vital Signs: 15:31 BP 55 / 42; Pulse 84; Resp 18; Temp 96.5; Pulse Ox 98% on R/A; Weight 104.33 kg; Height ph 5 ft. 11 in. ; 15:45 BP 56 / 45; Pulse 93; Resp 18; Pulse Ox 99% on R/A; ph 16:00 BP 97 / 70; Pulse 82; Resp 16; Pulse Ox 100% on R/A; ph 16:15 BP 73 / 55; Pulse 79; Resp 18; Pulse Ox 98% on R/A; ph 16:30 BP 79 / 57; Pulse 74; Resp 16; Temp 97; Pulse Ox 97% ; ph 16:39 BP 78 / 53; Pulse 73; Resp 14 S; Pulse Ox 100% on 2 lpm NC; iw 16:45 BP 81 / 67; Pulse 74; Resp 16; Pulse Ox 98% on R/A; ph 17:00 BP 94 / 63; Pulse 71; Resp 18; Temp 96.9(Ca); Pulse Ox 98% ; ph 17:15 BP 92 / 60; Pulse 71; Resp 18; Temp 96.8(Ca); Pulse Ox 98% ; ph 17:31 BP 92 / 62; Pulse 70; Resp 18; Pulse Ox 97% on R/A; ph 17:45 BP 91 / 64; Pulse 72; Resp 18; Temp 96.7(Ca); Pulse Ox 100% on R/A; ph 18:00 BP 98 / 68; Pulse 68; Resp 18; Pulse Ox 99% on R/A; ph 18:15 BP 118 / 52; Pulse 69; Resp 16; Temp 96.8; Pulse Ox 99% on R/A; ph 18:39 BP 124 / 55; Pulse 69; Resp 18; Temp 96.8; Pulse Ox 100% on R/A; ph 15:31 Body Mass Index 32.08 (104.33 kg, 180.34 cm) ph Angel Coma Score: 16:04 Eye Response: spontaneous(4). Motor Response: obeys commands(6). Verbal Response: ashley oriented(5). Total: 15. NIH Stroke Scale Scores: 16:04 NIHSS Score: 0 ashley ED Course: 15:22 Patient arrived in ED. ph 15:23 Adelfo Moss DO is Attending Physician. ms3 15:24 Krish Sandoval MD is Attending Physician. ms3 15:34 Triage completed. ph 15:34 Arm band placed on Patient placed in an exam room, in a wheelchair, on cold header operator, ph on pulse oximetry. 15:35 Patient has correct armband on for positive identification. Bed in low position. Call ph light in reach. Side rails up X2. Client placed on continuous cardiac and pulse oximetry monitoring. NIBP monitoring applied. exercise equipment repair technician on. Warm blanket given. 15:40 Assisted provider with central line placement. Set up central line tray. Triple lumen ph line placed in right femoral. Line placed by Krish Sandoval MD Placement verified by CXR, blood return, Dressed with 4X4s, Tegaderm, Blood was collected. Patient tolerated well. Before procedure, did Practitioner(s) obtain informed consent? Yes. Patient \\T\\ family education about procedure, CLABSI prevention and S/S of infection? Yes. Time-out/Briefing performed prior to start of procedure? Yes. Was handwashing/sanitizing done immediately prior to procedure? Yes. Was patient positioned to in a way to prevent air embolism? Yes. Was procedure site sterilized? Yes, with Was the site allowed to dry? Was local anesthetic and/or sedation utilized? Yes. During the procedure, did the Practitioner(s) maintain a sterile field? Yes. Were unused ports clamped during insertion? Yes. Was a 2nd qualified MD obtained after 3 unsuccessful insertion attempts? No. Was blood aspirated from each lumen? Yes. After the procedure, did the Practitioner(s) clean the site and apply a sterile dressing? Yes. Initial lab(s) drawn, by ED staff, sent to lab. 15:44 Yanelis Posada, RN is Primary Nurse. ph 16:31 [facility] called to initiate transfer, no answer. ty 16:34 [facility] called to initiate transfer, no answer. ty 16:38 [facility] called to initiate transfer, no answer. ty 16:40 EKG done, by ED staff, reviewed by Krish Sandoval MD. Patient transferred, IV remains ph in place. 16:41 [facility] called to initiate transfer, no answer. ty 16:44 [facility] called to initiate transfer, no answer. ty 16:45 XRAY Chest (1 view) In Process Unspecified. EDMS 16:48 [facility] called to initiate transfer, no answer. ty 16:50 Huffman cath inserted, using sterile technique, 16 Fr., by sales agent financial report service, balloon inflated, to ph gravity drainage, urine specimen collected. 16:52 [facility] called to initiate transfer, no answer. ty 16:53 Urine collected: Huffman catheter specimen, clear. tm3 16:54 [facility] called to initiate transfer, no answer. ty 16:58 [facility] called to initiate transfer, no answer. ty 17:03 [facility] called to initiate transfer, no answer. ty 17:05 [facility] called to initiate transfer, no answer. ty 17:07 [facility] called to initiate transfer, no answer. ty 17:08 [facility] called to initiate transfer, no answer. ty 17:09 [facility] called to initiate transfer, no answer. ty 17:12 [facility] called to initiate transfer, no answer. ty 17:14 [facility] called to initiate transfer, no answer. ty 17:18 [facility] called to initiate transfer, no answer. ty 17:19 [facility] called to initiate transfer, no answer. ty 17:20 [facility] called to initiate transfer, no answer. ty 17:20 [facility] called to initiate transfer, spoke with hoda. ty 17:40 Life flight called for transport to [facility]. ty Administered Medications: 15:25 Drug: NS 0.9% IV 1000 ml IV at 1 bolus Per protocol; to be given as a bolus over 60 ph minutes {Note: EMS fluids .} Route: IV; Rate: 1 bolus; Site: right upper arm; 16:45 Follow up: Response: No adverse reaction; IV Intake: 1000ml ; IV SiteChange: right ph femoral; IV SiteChange Reason: Infiltration 18:45 Follow up: Response: No adverse reaction; IV Status: Infusion continued upon transfer ph 16:00 Drug: Pantoprazole IVP 80 mg IVP once Route: IVP; Site: right femoral; ph 18:43 Follow up: Response: No adverse reaction ph 16:00 Drug: SandoSTATIN IV 100 mcg IV at calculated rate once Route: IV; Rate: calculated ph rate; Site: right femoral; 16:15 Follow up: Response: No adverse reaction; IV Status: Completed infusion ph 16:00 Drug: Phytonadione Sub-Q 10 mg Sub-Q once Route: Sub-Q; Site: right lower abdomen; ph 18:44 Follow up: Response: No adverse reaction ph 16:00 Drug: Ondansetron IVP 8 mg IVP once; over 2 minutes Route: IVP; Site: right femoral; ph 18:46 Follow up: Response: No adverse reaction ph 16:15 Drug: Pantoprazole IV 8 mg/hr IV at 25 ml/hr continuous; (Standard dilution is 80 mg in ph 250 mL NS) Route: IV; Rate: 25 ml/hr; Site: right femoral; 18:43 Follow up: Response: No adverse reaction; IV Status: Infusion continued upon transfer ph 16:15 Drug: Octreotide Infusion (50 mcg/hr) - (Octreotide IV 500 mcg, NS 0.9% IV 500 ml) IV ph at 50 ml/hr continuous Route: IV; Rate: 50 ml/hr; Site: right femoral; 18:46 Follow up: Response: No adverse reaction; IV Status: Infusion continued upon transfer ph 16:30 Drug: NS 0.9% IV 1000 ml IV at 1000 ml once; to be given as a bolus over 60 minutes iw Route: IV; Rate: 1000 ml; Site: right femoral; 17:30 Follow up: Response: No adverse reaction; IV Status: Completed infusion; IV Intake: ph 1000ml 17:59 Drug: Piperacillin-Tazobactam IVPB 3.375 grams IVPB once over 60 mins; (mix in NS 100 ph mL) Route: IVPB; Infused Over: 60 mins; Site: right femoral; 18:46 Follow up: Response: No adverse reaction; IV Status: Infusion continued upon transfer ph 17:59 Drug: NS 0.9% IV 1000 ml IV at 1000 ml once; to be given as a bolus over 60 minutes ph Route: IV; Rate: 1000 ml; Site: right femoral; 18:46 Follow up: Response: No adverse reaction; IV Status: Infusion continued upon transfer ph 17:59 Drug: Magnesium Sulfate IVPB 2 grams IVPB once over 2 hrs Route: IVPB; Infused Over: 2 ph hrs; Site: right femoral; 18:47 Follow up: Response: No adverse reaction; IV Status: Infusion continued upon transfer ph 18:23 Not Given (Other Intervention Used): acetaminophensuppository 650 mg NV once iw 18:23 Not Given (Other Intervention Used): [id number] mg IVP once iw Medication: 16:05 Blood products: PRBCs X 1 unit given. emergency release blood See transfusion record. ph 16:30 Blood products: PRBCs X 1 unit given. emergency release blood See transfusion record. ph 17:31 VIS not applicable for this client. ph Intake: 16:45 IV: 1000ml; Total: 1000ml. ph 17:30 IV: 1000ml; Total: 2000ml. ph Outcome: 16:48 ER care complete, transfer ordered by . ashley 18:40 Transferred by helicopter to [facility], Transfer form ph completed. X-rays sent w/ patient. 18:40 Condition: stable 18:40 Instructed on the need for transfer, 18:47 Patient left the ED. ph NIH Stroke Scale - NIH Stroke Score Date: 03/13/2025 Time: 16:04 Total Score = 0 10. Dysarthria (speech clarity - read or repeat words) - 0(Normal) 11. Extinction and Inattention (visual/tactile/auditory/spatial/personal) - 0(No abnormality) 1a. Level of Consciousness (LOC) - 0(Alert) 1b. Level of Consciousness (LOC) (Month \\T\\ Age) - 0(Both) 1c. LOC Commands (Open \\T\\ Closes Eyes/Grader Green Meat) - 0(Both) 2. Best Gaze (Lateral Gaze Paresis) - 0(Normal) 3. Visual Field Loss - 0(No visual loss) 4. Facial Palsy - 0(Normal) 5a. Left Arm: Motor (10-second hold) - 0(No drift) 5b. Right Arm: Motor (10-second hold) - 0(No drift) 6a. Left Leg: Motor (5-second hold - always test supine) - 0(No drift) 6b. Right Leg: Motor (5-second hold - always test supine) - 0(No drift) 7. Limb Ataxia (finger/nose \\T\\ heel/pham - test with eyes open) - 0(Absent) 8. Sensory Loss (pinprick arms/legs/face) - 0(Normal) 9. Best Language: Aphasia (description/naming/reading) - 0(No aphasia) Initials: ashley Signatures: Dispatcher [employer] EDMS Kory Castañeda tm3 Krish Sandoval MD MD cha Williams, Irene, RN RN Yanelis Posada RN RN Adelfo Moss DO DO ms3 Adam Reddy ty Corrections: (The following items were deleted from the chart) 17:01 16:54 [facility] called to initiate transfer, ty ty 17:40 17:39 SandoSTATIN IV 100 mcg IV at calculated rate in right femoral ph ph 17:40 17:39 Octreotide Infusion (50 mcg/hr) - (Octreotide IV 500 mcg, NS 0.9% IV 500 ph ml) IV at 50 ml/hr in right femoral ph 17:41 17:39 Pantoprazole IV 8 mg/hr IV at 25 ml/hr in right femoral ph ph 17:41 17:39 Pantoprazole IVP 80 mg IVP in right femoral ph ph 17:41 17:39 Phytonadione Sub-Q 10 mg Sub-Q in right lower abdomen ph ph 18:44 15:25 NS 0.9% IV 1000 ml IV at 1 bolus in right upper arm ph ph 18:46 15:25 NS 0.9% IV 1000 ml IV at 1 bolus in right upper arm ph ph
--- NOTE | 2025-03-13 16:51 | RAD REPORT ---
EXAMINATION: ONE VIEW CHEST XR CLINICAL INDICATION: GI bleed TECHNIQUE: Frontal chest projection is submitted. Examination is limited by patient positioning and t echnique. COMPARISON: 02/16/2023 FINDINGS: The lungs are well inflated and clear. The heart is normal in size. No displaced fractures identified . IMPRESSION: No acute intrathoracic abnormalities.
[2025-03-13 17:04] LABS: Specific Gravity 1.022 (1.005-1.030); Sqamous Epithelial None Seen /HPF (None Seen); Urine Bacteria <20 /HPF (<20); Urine Bilirubin NEGATIVE (Negative); Urine Blood 1+ (Negative); Urine Clarity Extremely Turbid (Clear); Urine Color Light-Yellow (Yellow); Urine Crystals Unidentified Few /HPF (None Seen); Urine Culture Reflex Order REFLEXED; Urine Glucose NEGATIVE (Negative); Urine Ketones NEGATIVE (Negative); Urine Microscopic Reflex YN ORDER UMIC; Urine Mucus Slight /HPF (None Seen); Urine Nitrite NEGATIVE (Negative); Urine Protein 1+ (Negative); Urine Urobilinogen Normal (Normal); Urine WBC >50 /HPF (<5); Urine pH 5.5 (5.0-7.0)
[2025-03-13] MEDS ORDERED: LIDOCAINE VISCOUS 2% 10ML ORAL SOLN ONE (17:08)
[2025-03-13] MEDS ORDERED: NA CHLORIDE 0.9% 1,000 ML ONE (17:55)
[2025-03-13] MEDS ORDERED: NA CHLORIDE 0.9% 100 ML ONE (17:56)
[2025-03-13] MEDS ORDERED: PIPERACIL/TAZO 3.375 GM VIAL IV ONE (17:57)
[2025-03-13] MEDS ORDERED: Magnesium Sulfate 2gm IVPB 2 G/50 ML BAG IV ONE (17:57)
[2025-03-13 19:21] VITALS: TEMP 96.8
[2025-03-13 19:22] VITALS: BP 124/55; O2SAT 100
== END 2025-03-13 18:47 | disposition short-term general hospital (02) ==
LOC: ER 15:19
DX: D62 Acute posthemorrhagic anemia (principal); N17.9 Acute kidney failure, unspecified; I95.9 Hypotension, unspecified; N39.0 Urinary tract infection, site not specified; D72.829 Elevated white blood cell count, unspecified; E83.42 Hypomagnesemia; E11.9 Type 2 diabetes mellitus without complications; Z89.611 Acquired absence of right leg above knee
CPT/HCPCS: 96365; 96367; 96361; 96368; 87088; 85025; 81001; 87086; 80048; 36415; 86900; 83735; 86850; 85610; 86901; 80076; 83605; 86920 ×2; 84484; 83690; 86927; 83880; 71045; 36430; 51702; 96375; 96372; 99285; 36556; J2354 ×2; J3475; J3430; J2543; J2470 ×2; J2405; P9016 ×2; P9017; J7050; J7040 ×2; J7030